=== PATIENT | female | born 1965 | race Caucasian/White ===

== ENCOUNTER → 2016-04-24 | Outpatient (REF) | payer OTHER ==
[~2016-04-24] MED LIST: BENZONATE PO; FEXOFENADINE PO; FISHCAP PO; OMEPPOW18 PO; RESTASIS OU; SYMB80AE IN; VICO5TAB OR
== END ==
LOC: M SFHCCLAY 07:41
PROVIDERS: ATTEND Nurse Practitioner Family
DX: E78.4 Other hyperlipidemia (principal)

== ENCOUNTER → 2016-06-22 | Outpatient (CLI) | payer OTHER ==
--- NOTE | 2016-06-22 14:47 | REPMRS ---
Patient History The patient states she had a clinical breast exam in 05/2016. Family history of breast cancer in paternal grandmother at age 55. Took unspecified hormones for 4 years. Digital Woman Screen Mammo: June 22, 2016 - Exam #: [id number] Bilateral CC and MLO view(s) were taken. Technologist: Porsche Hand, Technologist Prior study comparison: June 14, 2015, digital woman screen mammo performed at [facility]. June 12, 2014, digital woman screen mammo performed at [facility]. FINDINGS: The breast tissue is heterogeneously dense. This may lower the sensitivity of mammography. There has been no change in the appearance of the mammogram from the prior studies. There is a moderate amount of residual fibroglandular tissue which is fairly symmetric. There is no interval development of dominant mass, architectural distortion, or clustered microcalcification typical of malignancy. Scattered lymph nodes are seen in the axillae. No significant changes when compared with prior studies. ASSESSMENT: BI-RADS/ACR category 2 mammogram. Benign finding(s). Recommendation Routine screening mammogram in 1 year (for women over age 40). This mammogram was interpreted with the aid of an FDA-approved computer-aided dectection system. A. Negative x-ray reports should not delay biopsy if a dominant or clinically suspicious mass is present. B. Four to eight percent of cancers are not identified by mammography. C. Adenosis and dense breast may obscure an underlying neoplasm. Electronically Signed By: Vishnu Melgoza MD 06/22/16 [id number]
== END ==
LOC: M WHC 13:30
PROVIDERS: ATTEND Nurse Practitioner Family
DX: Z12.31 Encounter for screening mammogram for malignant neoplasm of breast (principal)

== ENCOUNTER → 2016-08-22 | Outpatient (REF) | payer OTHER ==
[2016-08-22 12:21] LABS: MEAN CORPUSCULAR HEMOGLOBIN 30.1 pg (27.0-33.0); MEAN CORPUSCULAR HGB CONC 33.6 g/dl (32.0-36.5); MEAN CORPUSCULAR VOLUME 89.6 fl (80.0-96.0); WHITE BLOOD COUNT 8.1 K/mm3 (4.0-10.0)
[2016-08-22 12:32] LABS: ALBUMIN 3.9 GM/DL (3.2-5.2); ALBUMIN/GLOBULIN RATIO 1.18 (1.00-1.93); ALKALINE PHOSPHATASE 80 U/L (45-117); ALT/SGPT 30 U/L (12-78); ANION GAP 5 MEQ/L (8-16); AST/SGOT 13 U/L (15-37); BILIRUBIN,TOTAL 0.5 MG/DL (0.2-1.0); BLOOD UREA NITROGEN 8 MG/DL (7-18); CALCIUM LEVEL 8.6 MG/DL (8.5-10.1); CARBON DIOXIDE LEVEL 28 MEQ/L (21-32); CHLORIDE LEVEL 104 MEQ/L (98-107); CHOLESTEROL LEVEL 230 MG/DL (<200); CREATININE FOR GFR 0.74 MG/DL (0.55-1.02); GLOMERULAR FILTRATION RATE > 60.0 (>51); GLUCOSE, FASTING 122 MG/DL (70-105); POTASSIUM SERUM 4.3 MEQ/L (3.5-5.1); SODIUM LEVEL 137 MEQ/L (136-145); TOTAL PROTEIN 7.2 GM/DL (6.4-8.2); TRIGLYCERIDES LEVEL 170 MG/DL (<150)
== END ==
LOC: M SFHCCLAY 07:55
PROVIDERS: ATTEND Nurse Practitioner Family
DX: K21.9 Gastro-esophageal reflux disease without esophagitis (principal); E78.4 Other hyperlipidemia; E03.9 Hypothyroidism, unspecified; E55.9 Vitamin D deficiency, unspecified

== ENCOUNTER → 2016-12-18 | Outpatient (REF) | payer OTHER | LOC: M SFHCCLAY 08:06 | PROVIDERS: ATTEND Nurse Practitioner Family | DX: R73.01 Impaired fasting glucose (principal); E78.4 Other hyperlipidemia ==

== ENCOUNTER → 2017-04-09 | Outpatient (REF) | payer OTHER ==
[2017-04-09 11:49] LABS: CHOLESTEROL LEVEL 199 MG/DL (<200); CHOLESTEROL RISK RATIO 4.627 (<5); GLUCOSE, FASTING 99 MG/DL (70-105); HDL CHOLESTEROL 43 MG/DL (>40); LDL CHOLESTEROL 129.8 MG/DL (<100); NON-HDL-C 156 MG/DL; TRIGLYCERIDES LEVEL 131 MG/DL (<150)
[2017-04-09 12:42] LABS: ESTIMATED AVERAGE GLUCOSE 123 MG/DL (60-110); HEMOGLOBIN A1c 5.9 %
== END ==
LOC: M SFHCCLAY 07:04
DX: R73.01 Impaired fasting glucose (principal); E78.4 Other hyperlipidemia

== ENCOUNTER → 2017-06-29 | Outpatient (REF) | payer OTHER ==
[2017-06-29 16:50] LABS: HEMATOCRIT 39.3 % (36.0-47.0); HEMOGLOBIN 12.9 g/dl (12.0-15.5); MEAN CORPUSCULAR HEMOGLOBIN 29.9 pg (27.0-33.0); MEAN CORPUSCULAR HGB CONC 32.8 g/dl (32.0-36.5); MEAN CORPUSCULAR VOLUME 91.2 fl (80.0-96.0); PLATELET COUNT, AUTOMATED 352 10^3/uL (150-450); RED BLOOD COUNT 4.31 10^6/uL (4.00-5.40); RED CELL DISTRIBUTION WIDTH 12.7 % (11.5-14.5); WHITE BLOOD COUNT 7.7 10^3/uL (4.0-10.0)
[2017-06-29 17:14] LABS: TOTAL 25(OH) VITAMIN D 27.5 NG/ML (30.0-100.0)
[2017-06-29 17:19] LABS: ALBUMIN 4.2 GM/DL (3.2-5.2); ALBUMIN/GLOBULIN RATIO 1.24 (1.00-1.93); ALKALINE PHOSPHATASE 69 U/L (45-117); ALT/SGPT 58 U/L (12-78); ANION GAP 7 MEQ/L (8-16); AST/SGOT 31 U/L (7-37); BILIRUBIN,TOTAL 0.4 MG/DL (0.2-1.0); BLOOD UREA NITROGEN 8 MG/DL (7-18); CALCIUM LEVEL 9.2 MG/DL (8.5-10.1); CARBON DIOXIDE LEVEL 29 MEQ/L (21-32); CHLORIDE LEVEL 105 MEQ/L (98-107); CHOLESTEROL LEVEL 212 MG/DL (<200); CREATININE FOR GFR 0.73 MG/DL (0.55-1.30); GLOMERULAR FILTRATION RATE > 60.0 (>51); GLUCOSE, FASTING 104 MG/DL (70-100); HDL CHOLESTEROL 41 MG/DL (>40); LDL CHOLESTEROL 115.4 MG/DL (<100); NON-HDL-C 171 MG/DL; POTASSIUM SERUM 4.2 MEQ/L (3.5-5.1); SODIUM LEVEL 141 MEQ/L (136-145); TOTAL PROTEIN 7.6 GM/DL (6.4-8.2); TRIGLYCERIDES LEVEL 278 MG/DL (<150)
[2017-06-29 17:40] LABS: ESTIMATED AVERAGE GLUCOSE 126 MG/DL (60-110)
== END ==
LOC: M SFHCCLAY 11:23
DX: K21.9 Gastro-esophageal reflux disease without esophagitis (principal); E78.4 Other hyperlipidemia; R73.01 Impaired fasting glucose; E03.9 Hypothyroidism, unspecified; E55.9 Vitamin D deficiency, unspecified

== ENCOUNTER → 2017-07-06 | Outpatient (REF) | payer OTHER | LOC: M SFHCWAGY 13:57 | DX: Z12.72 Encounter for screening for malignant neoplasm of vagina (principal) ==

== ENCOUNTER → 2017-07-06 | Outpatient (CLI) | payer OTHER | LOC: M WHC 13:31 | DX: Z12.31 Encounter for screening mammogram for malignant neoplasm of breast (principal) ==

== ENCOUNTER → 2017-07-09 | Outpatient (CLI) | payer OTHER | LOC: M SMT 15:55 | DX: M41.04 Infantile idiopathic scoliosis, thoracic region (principal); J45.41 Moderate persistent asthma with (acute) exacerbation | CPT/HCPCS: 71046 ==

== ENCOUNTER 2017-09-21 06:32 | Day surgery (SDC) | payer OTHER ==
[2017-09-21] MEDS ORDERED: LIDOCAINE 2% INJ 100 MG/5 ML SDV (FOR ANES.) As Ordered (07:03)
[2017-09-21] MEDS ORDERED: PROPOFOL 200 MG/20 ML VIAL As Ordered ×2 (07:03)
[2017-09-21] MEDS: NS 1,000 ML IV (07:08)
[2017-09-21] MEDS ORDERED: fentaNYL 100 MCG/2 ML INJECTION (J3010) As Ordered (07:36)
== END 2017-09-21 08:20 | disposition home or self-care (01) ==
LOC: M OPP 06:32
DX: Z12.11 Encounter for screening for malignant neoplasm of colon (principal); K64.0 First degree hemorrhoids; Z86.010 Personal history of colon polyps; K22.8 Other specified diseases of esophagus; K44.9 Diaphragmatic hernia without obstruction or gangrene; R13.10 Dysphagia, unspecified; E78.00 Pure hypercholesterolemia, unspecified; E03.9 Hypothyroidism, unspecified; K21.9 Gastro-esophageal reflux disease without esophagitis; J44.9 Chronic obstructive pulmonary disease, unspecified; Z79.899 Other long term (current) drug therapy; Z79.82 Long term (current) use of aspirin; Z88.0 Allergy status to penicillin; Z88.8 Allergy status to other drugs, medicaments and biological substances; Z90.710 Acquired absence of both cervix and uterus
CPT/HCPCS: 45378

== ENCOUNTER → 2017-10-04 | Outpatient (CLI) | payer OTHER | LOC: M RAD 14:00 | DX: J30.9 Allergic rhinitis, unspecified (principal); J32.9 Chronic sinusitis, unspecified | CPT/HCPCS: 71046 ==

== ENCOUNTER → 2017-10-05 | Outpatient (REF) | payer OTHER ==
[2017-10-05 11:29] LABS: BASO # 0.1 10^3/uL (0.0-0.2); EOS # 0.2 10^3/uL (0.0-0.50); EOS % 1.6 % (0.0-3.0); HEMATOCRIT 38.9 % (36.0-47.0); HEMOGLOBIN 12.9 g/dl (12.0-15.5); IMMATURE GRANULOCYTE % 1.5 % (0-3.0); LYMPH # 2.9 10^3/uL (1.5-4.5); LYMPH % 25.9 % (24.0-44.0); MEAN CORPUSCULAR HEMOGLOBIN 30.4 pg (27.0-33.0); MEAN CORPUSCULAR HGB CONC 33.2 g/dl (32.0-36.5); MEAN CORPUSCULAR VOLUME 91.7 fl (80.0-96.0); MONO % 8.7 % (0.0-5.0); NEUTROPHILS # 6.8 10^3/uL (1.8-7.7); NEUTROPHILS % 61.3 % (36.0-66.0); PLATELET COUNT, AUTOMATED 326 10^3/uL (150-450); RED BLOOD COUNT 4.24 10^6/uL (4.00-5.40); RED CELL DISTRIBUTION WIDTH 13.2 % (11.5-14.5)
[2017-10-05 11:56] LABS: ESTIMATED AVERAGE GLUCOSE 131 MG/DL (60-110); HEMOGLOBIN A1c 6.2 %
[2017-10-05 12:12] LABS: CHOLESTEROL LEVEL 195 MG/DL (<200); CHOLESTEROL RISK RATIO 4.333 (<5); GLUCOSE, FASTING 97 MG/DL (70-100); HDL CHOLESTEROL 45 MG/DL (>40); LDL CHOLESTEROL 111.2 MG/DL (<100); NON-HDL-C 150 MG/DL; TOTAL 25(OH) VITAMIN D 32.5 NG/ML (30.0-100.0); TRIGLYCERIDES LEVEL 194 MG/DL (<150)
[2017-10-05 12:25] LABS: IMMUNOGLOBULIN E 4.7 IU/ML (<100)
== END ==
LOC: M SFHCCLAY 09:12
DX: T78.40XD Allergy, unspecified, subsequent encounter (principal); R73.01 Impaired fasting glucose; E78.4 Other hyperlipidemia; E03.9 Hypothyroidism, unspecified; E55.9 Vitamin D deficiency, unspecified

== ENCOUNTER → 2017-10-13 | Outpatient (CLI) | payer OTHER | LOC: M RAD 12:02 | DX: R42 Dizziness and giddiness (principal) ==

== ENCOUNTER → 2017-10-22 | Outpatient (REF) | payer OTHER ==
[2017-10-22 13:08] LABS: BASO # 0.1 10^3/uL (0.0-0.2); BASO % 0.8 % (0.0-1.0); EOS # 0.1 10^3/uL (0.0-0.50); EOS % 1.3 % (0.0-3.0); HEMATOCRIT 41.8 % (36.0-47.0); HEMOGLOBIN 13.7 g/dl (12.0-15.5); IMMATURE GRANULOCYTE % 0.6 % (0-3.0); LYMPH # 2.4 10^3/uL (1.5-4.5); LYMPH % 26.9 % (24.0-44.0); MEAN CORPUSCULAR HGB CONC 32.8 g/dl (32.0-36.5); MEAN CORPUSCULAR VOLUME 91.7 fl (80.0-96.0); MONO # 0.7 10^3/uL (0.0-0.8); MONO % 7.5 % (0.0-5.0); NEUTROPHILS # 5.7 10^3/uL (1.8-7.7); NEUTROPHILS % 62.9 % (36.0-66.0); PLATELET COUNT, AUTOMATED 408 10^3/uL (150-450); RED BLOOD COUNT 4.56 10^6/uL (4.00-5.40); RED CELL DISTRIBUTION WIDTH 12.9 % (11.5-14.5)
[2017-10-22 13:34] LABS: ESTIMATED AVERAGE GLUCOSE 137 MG/DL (60-110); HEMOGLOBIN A1c 6.4 %
[2017-10-22 13:36] LABS: ERYTHROCYTE SEDIMENTATION RATE 12 mm/hr (0-30)
[2017-10-22 13:45] LABS: VITAMIN B12 LEVEL 523 PG/ML
[2017-10-22 13:46] LABS: FOLATE > 24.0 NG/ML
[2017-10-22 13:50] LABS: ALBUMIN 4.3 GM/DL (3.2-5.2); ALBUMIN/GLOBULIN RATIO 1.26 (1.00-1.93); ALKALINE PHOSPHATASE 77 U/L (45-117); ALT/SGPT 62 U/L (12-78); ANION GAP 8 MEQ/L (8-16); AST/SGOT 27 U/L (7-37); BILIRUBIN,TOTAL 0.4 MG/DL (0.2-1.0); BLOOD UREA NITROGEN 8 MG/DL (7-18); CALCIUM LEVEL 9.1 MG/DL (8.5-10.1); CARBON DIOXIDE LEVEL 30 MEQ/L (21-32); CHLORIDE LEVEL 102 MEQ/L (98-107); FREE T4 1.06 NG/DL (0.76-1.46); GLOMERULAR FILTRATION RATE > 60.0 (>51); GLUCOSE, FASTING 95 MG/DL (70-100); RHEUMATOID FACTOR QUANT 13.1 IU/ML (<15.0); SODIUM LEVEL 140 MEQ/L (136-145); TOTAL PROTEIN 7.7 GM/DL (6.4-8.2)
[2017-11-01 00:13] LABS: ANTI DOUBLE STRAND-DNA AB 1 IU/mL (0-9); ANTINUCLEAR ANTIBODIES DIRECT Positive (Negative); Lyme Disease IgG/IgM Antibodie <0.91 ISR (0.00-0.90); Lyme Disease IgM Ab Quantitati <0.80 index (0.00-0.79); RNP ANTIBODIES 1.1 AI (0.0-0.9); SJOGREN'S ANTI SS-A <0.2 AI (0.0-0.9); SJOGREN'S ANTI SS-B <0.2 AI (0.0-0.9); SMITH ANTIBODIES <0.2 AI (0.0-0.9); VITAMIN B1 LEVEL WHOLE BLOOD 118.5 nmol/L (66.5-200.0); VITAMIN B6,PYRIDOXAL PHOSPHATE 13.8 ug/L (2.0-32.8); VITAMIN E(ALPHA TOCOPHEROL) 20.5 mg/L (7.0-25.1); VITAMIN E(GAMMA TOCOPHEROL) 1.6 mg/L (0.5-5.5)
== END ==
LOC: M LABNEURO 11:01
DX: E07.9 Disorder of thyroid, unspecified (principal); A69.20 Lyme disease, unspecified

== ENCOUNTER → 2017-12-04 | Outpatient (REF) | payer OTHER ==
[2017-12-04 18:37] LABS: APPEARANCE, URINE CLEAR (CLEAR); BACTERIA, URINE AUTO 2+ (NEGATIVE); BILIRUBIN, URINE AUTO NEGATIVE (NEGATIVE); BLOOD, URINE BLOOD NEGATIVE (NEGATIVE); COLOR, URINE STRAW (YELLOW); GLUCOSE, URINE (UA) AUTO NEGATIVE (NEGATIVE); KETONE, URINE AUTO NEGATIVE (NEGATIVE); LEUKOCYTE ESTERASE, URINE AUTO NEGATIVE (NEGATIVE); NITRITE, URINE AUTO NEGATIVE (NEGATIVE); PROTEIN, URINE AUTO NEGATIVE (NEGATIVE); RBC, URINE AUTO 0 /HPF (0-3); SPECIFIC GRAVITY URINE AUTO 1.003 (1.002-1.035); SQUAMOUS EPITHELIAL CELL UR AU 0 /HPF (0-6); UROBILINOGEN, URINE AUTO 0.2 mg/dL (0.0-2.0); WBC, URINE AUTO 0 /HPF (0-3)
[2017-12-04 18:50] LABS: CREATININE,RANDOM URINE 22.7 MG/DL; TOTAL PROTEIN,RANDOM URINE < 5.0 MG/DL (0.0-12.0)
[2017-12-04 19:09] LABS: COMPLEMENT C3 149 MG/DL (90-180)
[2017-12-08 14:57] LABS: ANA (HEP2) Positive (.); BETA-2 GLYCOPROTEIN I ABY IGA <9 (0-25); BETA-2 GLYCOPROTEIN I ABY IGG <9 (0-20); BETA-2 GLYCOPROTEIN I ABY IGM <9 (0-32); CARDIOLIPIN IGA ANTIBODY <9 APL U/mL (0-11); CARDIOLIPIN IGG ANTIBODY <9 GPL U/mL (0-14); CARDIOLIPIN IGM ANTIBODY 9 MPL U/mL (0-12); CYCLIC CITRULLINATED PEPTIDE 5 units (0-19); SMITHS ANTIBODY < 0.2 AI (0.0-0.9)
[2017-12-11 11:09] LABS: DRVV SCREEN 42.9 SEC; PTT LUPUS TYPE ANTICOAG SCREEN 1.1 (0-1.2)
== END ==
LOC: M SFHCLERA 11:36
DX: R76.8 Other specified abnormal immunological findings in serum (principal)
CPT/HCPCS: 86255

== ENCOUNTER → 2018-01-03 | Outpatient (REF) | payer OTHER | LOC: M SFHCPLAZ 15:41 | DX: L57.8 Other skin changes due to chronic exposure to nonionizing radiation (principal) | CPT/HCPCS: 88305 ==

== ENCOUNTER → 2018-05-22 | Outpatient (REF) | payer OTHER ==
[~2018-05-22] MED LIST changes: +CLAR10CA3 PO; +FLUT11IN INH; +LEVAINH INH; +LEVO75TA4 PO; +MULT1TAB10 PO; +SING10TA32 PO
[2018-05-22 17:24] LABS: HEMOGLOBIN 12.8 g/dl (12.0-15.5); MEAN CORPUSCULAR HEMOGLOBIN 29.8 pg (27.0-33.0); PLATELET COUNT, AUTOMATED 353 10^3/uL (150-450); WHITE BLOOD COUNT 5.9 10^3/uL (4.0-10.0)
[2018-05-22 17:44] LABS: ALBUMIN 4.1 GM/DL (3.2-5.2); ALT/SGPT 47 U/L (12-78); BILIRUBIN,TOTAL 0.4 MG/DL (0.2-1.0); BLOOD UREA NITROGEN 8 MG/DL (7-18); CALCIUM LEVEL 8.5 MG/DL (8.5-10.1); CARBON DIOXIDE LEVEL 30 MEQ/L (21-32); CHLORIDE LEVEL 106 MEQ/L (98-107); CREATININE FOR GFR 0.71 MG/DL (0.55-1.30); FREE T4 1.18 NG/DL (0.76-1.46); GLOMERULAR FILTRATION RATE > 60.0 (>51); GLUCOSE, FASTING 113 MG/DL (70-100); SODIUM LEVEL 141 MEQ/L (136-145); TOTAL PROTEIN 7.1 GM/DL (6.4-8.2)
[2018-05-24 14:22] LABS: SMITHS ANTIBODY < 0.2 AI (0.0-0.9)
== END ==
LOC: M SFHCCLAY 09:05
PROVIDERS: ATTEND Family Medicine
DX: R25.1 Tremor, unspecified (principal); M35.00 Sjogren syndrome, unspecified; K52.9 Noninfective gastroenteritis and colitis, unspecified

== ENCOUNTER → 2018-06-13 | Outpatient (REF) | payer OTHER | LOC: M SFHCCLAY 11:51 | PROVIDERS: ATTEND Family Medicine | DX: J02.9 Acute pharyngitis, unspecified (principal) ==

== ENCOUNTER → 2018-08-14 | Outpatient (CLI) | payer OTHER ==
--- NOTE | 2018-08-14 13:59 | REPMRS ---
Patient History The patient states she had a clinical breast exam in 07/2018. Family history of breast cancer at age 55 in paternal grandmother. Took unspecified hormones for 4 years. 3D TOMOSYNTHESIS WAS PERFORMED. Digital Woman Screen Mammo: August 14, 2018 - Exam #: [id number] Bilateral CC and MLO view(s) were taken. Technologist: Morena Cardenas, Technologist Prior study comparison: July 06, 2017, digital woman screen mammo performed at [facility]. June 22, 2016, digital woman screen mammo performed at [facility]. FINDINGS: The breast tissue is heterogeneously dense. This may lower the sensitivity of mammography. There has been no change in the appearance of the mammogram from the prior studies. There is a moderate amount of residual fibroglandular tissue which is fairly symmetric. There is no interval development of dominant mass, areas of architectural distortion, or clustered microcalcification typical of malignancy. Assessment: BI-RADS/ACR category 1 mammogram. Negative Mammogram. Recommendation Routine screening mammogram in 1 year (for women over age 40). This mammogram was interpreted with the aid of an FDA-approved computer-aided dectection system. Electronically Signed By: Nilson Lee MD 08/14/18 1017
== END ==
LOC: M WHC 13:10
PROVIDERS: ATTEND Nurse Practitioner Family
DX: Z12.31 Encounter for screening mammogram for malignant neoplasm of breast (principal); Z80.3 Family history of malignant neoplasm of breast

== ENCOUNTER → 2018-08-14 | Outpatient (CLI) | payer OTHER ==
--- NOTE | 2018-08-14 15:41 | REP ---
Clinical: Chronic persistent asthma. Technique: PA and lateral. Comparison: 10/04/2017. Findings: Mediastinum and cardiac silhouette are within normal limits and stable. Chronic subtle scoliosis noted. Lung nice demonstrate chronic interstitial changes consistent with the given history of asthma. No apparent acute consolidation, effusion, or pneumothorax. Skeletal structures are intact. Impression: Chronic changes likely related to asthma. No acute process identified. Electronically Signed by Ruslan Alves MD 08/14/2018 03:33 P
== END ==
LOC: M SMT 15:05
PROVIDERS: ATTEND Nurse Practitioner Adult Health
DX: J45.40 Moderate persistent asthma, uncomplicated (principal)

== ENCOUNTER → 2019-03-24 | Outpatient (CLI) | payer OTHER ==
--- NOTE | 2019-03-24 14:04 | REP ---
Chest x-ray: Two views. History: Cough. Comparison chest x-ray: August 14, 2018. Findings: There is an S-shaped thoracolumbar scoliotic curve which is unchanged. No other significant bony abnormality is seen. The lungs are well inflated and free of infiltrate. Pleural angles are sharp. Cardiomediastinal silhouette is unremarkable and unchanged. Pulmonary vasculature is not increased. Impression: Thoracic scoliosis unchanged. Otherwise no acute disease Electronically Signed by Freddie Oseguera MD 03/24/2019 01:55 P
== END ==
LOC: M CLY 13:37
PROVIDERS: ATTEND Family Medicine
DX: R05 Cough (principal)

== ENCOUNTER → 2019-04-08 | Outpatient (REF) | payer OTHER ==
[2019-04-08 14:21] LABS: BASO # 0.1 10^3/uL (0.0-0.2); BASO % 0.4 % (0.0-1.0); EOS % 0.1 % (0.0-3.0); HEMATOCRIT 38.9 % (36.0-47.0); HEMOGLOBIN 12.7 g/dl (12.0-15.5); LYMPH % 17.9 % (24.0-44.0); MEAN CORPUSCULAR HEMOGLOBIN 30.5 pg (27.0-33.0); MEAN CORPUSCULAR HGB CONC 32.6 g/dl (32.0-36.5); MEAN CORPUSCULAR VOLUME 93.3 fl (80.0-96.0); MONO # 1.1 10^3/uL (0.0-0.8); MONO % 6.8 % (0.0-5.0); NEUTROPHILS # 11.9 10^3/uL (1.5-8.5); PLATELET COUNT, AUTOMATED 335 10^3/uL (150-450); RED BLOOD COUNT 4.17 10^6/uL (4.00-5.40); WHITE BLOOD COUNT 16.6 10^3/uL (4.0-10.0)
[2019-04-08 15:06] LABS: ERYTHROCYTE SEDIMENTATION RATE 8 mm/hr (0-30)
== END ==
LOC: M LAB REF 13:08
PROVIDERS: ATTEND Nurse Practitioner Adult Health
DX: R59.9 Enlarged lymph nodes, unspecified (principal)

== ENCOUNTER → 2019-04-11 | Outpatient (CLI) | payer OTHER ==
[~2019-04-11] MED LIST changes: +ISOVUE-370 76% 100ML VIAL (Q9967) As Ordered ONE
--- NOTE | 2019-04-11 09:25 | REP ---
INDICATION: Cough. Enlarged lymph nodes. PROCEDURE: CT neck with contrast. COMPARISON STUDIES: No prior similar studies FINDINGS: Oropharynx, nasopharynx, hypopharynx and larynx appear unremarkable. No evidence of lymphadenopathy. Soft tissues appear unremarkable. Bubbly fluid level seen in the right maxillary sinus. Fluid level also seen on the left. Mastoid air cells are clear. No vascular structures are unremarkable. Thyroid gland appears unremarkable. There is dxti-[id number] multilevel degenerative disc disease without evidence of a limiting canal stenosis. Osteophytes appear to narrow the neural foramen at this C5-6 level. IMPRESSION: No significant lymphadenopathy. No evidence of abscess or focal infection. Findings that could correlate with sinusitis. Clinical correlation recommended. Electronically Signed by Jimmy Peñaloza MD 04/11/2019 09:17 A
--- NOTE | 2019-04-11 13:50 | REP ---
CT CHEST WITH IV CONTRAST: HISTORY: Enlarged lymph nodes. Comparison chest CT study May 10, 2007. CT CONTRAST DOSE: 100 mL of intravenous Isovue 370. CT FINDINGS: Digital preliminary telecom specialist radiograph demonstrates an S-shaped thoracolumbar scoliosis. There is no evidence of hilar or mediastinal lymphadenopathy. There is good opacification of the vascular structures in the mediastinum. No evidence of pulmonary embolus or aortic dissection or aneurysm. No pleural or pericardial effusion is seen. There is no evidence of infiltrate or pulmonary mass lesion. No significant pulmonary nodule is appreciated. No acute bony abnormality is appreciated. Normal adrenal glands. The visualized upper abdominal structures are unremarkable. IMPRESSION: No active disease. Electronically Signed by Freddie Oseguera MD 04/11/2019 08:47 P
== END ==
LOC: M RAD 08:03
PROVIDERS: ATTEND Nurse Practitioner Adult Health
DX: R05 Cough (principal); R59.9 Enlarged lymph nodes, unspecified
CPT/HCPCS: 70491; 71260; Q9967

== ENCOUNTER → 2019-04-22 | Outpatient (REF) | payer OTHER ==
[~2019-04-22] MED LIST changes: -ISOVUE-370 76% 100ML VIAL (Q9967) As Ordered ONE
[2019-04-22 12:41] LABS: BLOOD UREA NITROGEN 9 MG/DL (7-18); CALCIUM LEVEL 9.2 MG/DL (8.5-10.1); CARBON DIOXIDE LEVEL 34 MEQ/L (21-32); CHLORIDE LEVEL 102 MEQ/L (98-107); CREATININE FOR GFR 0.68 MG/DL (0.55-1.30); FREE T4 1.09 NG/DL (0.76-1.46); GLOMERULAR FILTRATION RATE > 60.0 (>51); GLUCOSE, FASTING 104 MG/DL (70-100); POTASSIUM SERUM 3.9 MEQ/L (3.5-5.1); SODIUM LEVEL 139 MEQ/L (136-145)
[2019-04-22 12:47] LABS: HEMOGLOBIN A1c 7.2 %
== END ==
LOC: M SFHCCLAY 08:29
PROVIDERS: ATTEND Family Medicine
DX: E03.9 Hypothyroidism, unspecified (principal); R73.01 Impaired fasting glucose

== ENCOUNTER → 2019-05-19 | Outpatient (CLI) | payer OTHER ==
--- NOTE | 2019-05-19 15:09 | REPVR ---
PROCEDURE INFORMATION: Exam: CT Maxillofacial Without Contrast, Sinus Exam date and time: 05/19/2019 2:40 PM Age: 54 years old Clinical indication: Pain; Other: Sinus; Additional info: Acute recurrent max sinusitis TECHNIQUE: Imaging protocol: CT Maxillofacial without contrast. Focus on the sinuses. Radiation optimization: All CT scans at this facility use at least one of these dose optimization techniques: automated exposure control; mA and/or kV adjustment per patient size (includes targeted exams where dose is matched to clinical indication); or iterative reconstruction. COMPARISON: CT Maxilofacial w/out contrast 10/04/2017 2:09 PM FINDINGS: Frontal sinuses: Normal. No air-fluid levels. Ethmoid air cells: Normal. No air-fluid levels. Sphenoid sinuses: Mild mucosal thickening along the anterior wall of the left sphenoid sinus extending along the left sphenoid ostium which is opacified. No air-fluid levels. Maxillary sinuses: Trace right maxillary sinus mucosal thickening. No air-fluid levels. Ostiomeatal units are patent. Orbits: Orbits are normal. Globes are unremarkable. Nasal cavity/Septum: Unremarkable. Dental: There is a supernumerary tooth of the left maxilla. Soft tissues: Unremarkable. Bones/joints: Unremarkable. IMPRESSION: 1. No evidence of acute or severe chronic sinusitis. 2. Mild, chronic left sphenoid sinusitis with opacification of the sphenoid ostium. Electronically signed by: Porsche Kruse On 05/19/2019 15:09:42 PM
== END ==
LOC: M RAD 14:22
PROVIDERS: ATTEND Specialist
DX: J01.01 Acute recurrent maxillary sinusitis (principal)

== ENCOUNTER → 2019-07-23 | Outpatient (CLI) | payer OTHER ==
--- NOTE | 2019-07-24 02:45 | REPPI ---
Clinical: Sjogren's syndrome. Technique: AP, lateral, bilateral oblique and sunrise views of the left knee. Findings: Increased sclerosis along the tibial plateau with tibiofemoral joint space narrowing. A small 5 mm loose body along the anterolateral joint space compartment is suspected. No definite effusion. No obvious acute fracture or dislocation. Impression: Degenerative changes as described above. Electronically Signed by Ruslan Alves MD 07/24/2019 02:37 A
== END ==
LOC: M PLAIMG 08:42
DX: M35.09 Sjogren syndrome with other organ involvement (principal); M17.12 Unilateral primary osteoarthritis, left knee

== ENCOUNTER → 2019-07-23 | Outpatient (REF) | payer OTHER ==
[2019-07-23 18:52] LABS: BASO # 0.1 10^3/uL (0.0-0.2); BASO % 0.9 % (0.0-1.0); EOS # 0.3 10^3/uL (0.0-0.5); EOS % 3.5 % (0.0-3.0); HEMATOCRIT 39.4 % (36.0-47.0); LYMPH % 26.1 % (24.0-44.0); MEAN CORPUSCULAR HEMOGLOBIN 29.7 pg (27.0-33.0); MEAN CORPUSCULAR VOLUME 90.2 fl (80.0-96.0); MONO # 0.7 10^3/uL (0.0-0.8); MONO % 8.8 % (0.0-5.0); NEUTROPHILS # 4.6 10^3/uL (1.5-8.5); NEUTROPHILS % 60.2 % (36.0-66.0); PLATELET COUNT, AUTOMATED 336 10^3/uL (150-450); RED BLOOD COUNT 4.37 10^6/uL (4.00-5.40); WHITE BLOOD COUNT 7.6 10^3/uL (4.0-10.0)
[2019-07-23 19:25] LABS: ALBUMIN 3.9 GM/DL (3.2-5.2); ALT/SGPT 41 U/L (12-78); BILIRUBIN,TOTAL 0.3 MG/DL (0.2-1.0); BLOOD UREA NITROGEN 7 MG/DL (7-18); CALCIUM LEVEL 9.4 MG/DL (8.5-10.1); CARBON DIOXIDE LEVEL 28 MEQ/L (21-32); CHLORIDE LEVEL 103 MEQ/L (98-107); CREATININE FOR GFR 0.63 MG/DL (0.55-1.30); GLOMERULAR FILTRATION RATE > 60.0 (>51); GLUCOSE, FASTING 93 MG/DL (70-100); SODIUM LEVEL 138 MEQ/L (136-145); TOTAL PROTEIN 7.2 GM/DL (6.4-8.2)
[2019-07-23 19:38] LABS: ERYTHROCYTE SEDIMENTATION RATE 10 mm/hr (0-30)
[2019-07-23 19:46] LABS: RUBELLA IgG QUALITATIVE IMMUNE (IMMUNE)
[2019-07-24 12:23] LABS: IMMUNOGLOBULIN G 791 MG/DL (681-1648); IMMUNOGLOBULIN M 91.8 MG/DL (40-230)
[2019-07-24 12:24] LABS: IMMUNOGLOBULIN E < 3.6 IU/ML (<100)
== END ==
LOC: M LAB REF 17:43
PROVIDERS: ATTEND Allergy & Immunology Allergy
DX: D84.9 Immunodeficiency, unspecified (principal)

== ENCOUNTER → 2019-08-27 | Outpatient (CLI) | payer OTHER ==
--- NOTE | 2019-08-27 16:02 | REPMRS ---
Patient History The patient states she had a clinical breast exam in August 2019.Family history of breast cancer at age 55 in paternal grandmother. Took unspecified hormones for 4 years. 3D TOMOSYNTHESIS WAS PERFORMED. [facility] lifetime risk for breast cancer is 11.1%. ALIX ALEJANDRO Leah. Digital Woman Screen Mammo: August 27, 2019 - Exam #: [id number] Bilateral CC and MLO view(s) were taken. Technologist: Yaima Rosenthal, Technologist Prior study comparison: August 14, 2018, bilateral digital woman screen mammo performed at [facility]. July 06, 2017, digital woman screen mammo performed at [facility]. FINDINGS: The breast tissue is heterogeneously dense. This may lower the sensitivity of mammography. There has been no change in the appearance of the mammogram from the prior studies. There is a moderate amount of residual fibroglandular tissue which is fairly symmetric. There is no interval development of dominant mass, areas of architectural distortion, or clustered microcalcification typical of malignancy. Assessment: BI-RADS/ACR category 1 mammogram. Negative Mammogram. Recommendation Routine screening mammogram in 1 year (for women over age 40). This mammogram was interpreted with the aid of an FDA-approved computer-aided dectection system. Electronically Signed By: Nilson Lee MD 08/27/19 [id number]
== END ==
LOC: M WHC 13:08
PROVIDERS: ATTEND Nurse Practitioner Family
DX: Z12.31 Encounter for screening mammogram for malignant neoplasm of breast (principal); Z92.29 Personal history of other drug therapy

== ENCOUNTER → 2020-01-24 | Outpatient (CLI) | payer OTHER | LOC: M LABSMTC 10:40 | PROVIDERS: ATTEND Orthopaedic Surgery | DX: Z20.828 Contact with and (suspected) exposure to other viral communicable diseases (principal) ==

== ENCOUNTER → 2020-01-26 | Outpatient (REF) | payer OTHER ==
[2020-01-26 12:15] LABS: HEMOGLOBIN A1c 6.1 %
[2020-01-26 13:33] LABS: ALBUMIN 4.1 GM/DL (3.2-5.2); ALT/SGPT 30 U/L (12-78); BILIRUBIN,TOTAL 0.8 MG/DL (0.2-1.0); BLOOD UREA NITROGEN 10 MG/DL (7-18); CALCIUM LEVEL 8.9 MG/DL (8.5-10.1); CARBON DIOXIDE LEVEL 28 MEQ/L (21-32); CHLORIDE LEVEL 104 MEQ/L (98-107); CHOLESTEROL LEVEL 199 MG/DL (<200); CHOLESTEROL RISK RATIO 3.826 (<5); CREATININE FOR GFR 0.68 MG/DL (0.55-1.30); FREE T4 1.12 NG/DL (0.76-1.46); GLOMERULAR FILTRATION RATE > 60.0 (>51); GLUCOSE, FASTING 83 MG/DL (70-100); HDL CHOLESTEROL 52 MG/DL (>40); LDL CHOLESTEROL 98 MG/DL (<100); NON-HDL-C 147 MG/DL; SODIUM LEVEL 139 MEQ/L (136-145); TOTAL PROTEIN 7.1 GM/DL (6.4-8.2); TRIGLYCERIDES LEVEL 245 MG/DL (<150)
== END ==
LOC: M SFHCCLAY 08:22
PROVIDERS: ATTEND Family Medicine
DX: E09.9 Drug or chemical induced diabetes mellitus without complications (principal); J45.40 Moderate persistent asthma, uncomplicated

== ENCOUNTER → 2020-03-02 | Outpatient (REF) | payer OTHER | LOC: M SFHCCLAY 14:21 | PROVIDERS: ATTEND Family Medicine | DX: R30.0 Dysuria (principal) ==

== ENCOUNTER → 2020-03-02 | Outpatient (CLI) | payer OTHER ==
--- NOTE | 2020-03-02 15:33 | REP ---
INDICATION: LOW BACK PAIN. COMPARISON: None. TECHNIQUE: Full cervical spine series obtained with 6 views. FINDINGS: There is no compression fracture. There is normal alignment and lumbar lordosis. There is no spondylolysis or spondylolisthesis. There is mild diffuse spurring of the lumbar vertebral bodies. There is mild disc space narrowing at L1-2, L2-3 and L3-4, with slight narrowing at L4-5. There is sclerosis and spurring at the posterior facet joints of L5-S1. The posterior elements are intact. There is mild curvature convex to the right. IMPRESSION: No compression deformity. Mild diffuse degenerative changes as discussed in detail above. <Electronically signed by Nilson Lee > 03/02/20 [id number]
== END ==
LOC: M CLY 14:33
PROVIDERS: ATTEND Family Medicine
DX: M51.36 Other intervertebral disc degeneration, lumbar region (principal); M25.78 Osteophyte, vertebrae

== ENCOUNTER → 2020-03-15 | Outpatient (REF) | payer OTHER | LOC: M SFHCCLAY 10:51 | PROVIDERS: ATTEND Physician Assistant | DX: R30.0 Dysuria (principal) ==

== ENCOUNTER → 2020-04-22 | Outpatient (CLI) | payer OTHER ==
[~2020-04-22] MED LIST changes: +LIDOCAINE 1% MDV 20ML VIAL As Ordered ONE; +SODIUM BICARBONATE 8.4% INJ 50MEQ 50 ML VIAL As Ordered ONE
[2020-04-22 10:28] VITALS: BP 173/90
--- NOTE | 2020-04-22 15:11 | REP ---
INDICATION: RIGHT KNEE VIDALES CYST. COMPARISON: None. TECHNIQUE: The procedure was performed by Imelda Maya [facility], under the direct supervision of Dr. Oseguera. The risks and benefits of the procedure were explained to the patient and an informed consent was obtained both verbally and written. Directly prior to the start of the procedure a formal time-out was completed in the procedure room. FINDINGS: Ultrasound imaging prior to the procedures showed AA highly complex Vidales cyst measuring approximately 5.5 x 1.5 x 2.7 cm. The skin was prepped and draped in a sterile fashion. Two mL of buffered lidocaine was used as a local anesthetic. Using ultrasound guidance an 18 gauge spinal needle was inserted and advanced into the Vidales's cyst. No fluid was draining out of the Vidales cyst so a 5 Setswana skater catheter was then inserted under ultrasound guidance. Approximately 5 mL of extremely thick joint fluid was aspirated. Multiple or attempts were made to get more fluid aspirated, none were successful. The patient tolerated the procedure well and there were no immediate complications. After the appropriate amount of monitored convalescence the patient was discharged from the department. IMPRESSION: 1. Attempted ultrasound-guided right Vidales's cyst aspiration. <Electronically signed by Imelda Maya > 04/22/20 1416 <Electronically signed by Geo Oseguera > 04/22/20 [id number]
== END ==
LOC: M IRPRO 10:10
PROVIDERS: ATTEND Orthopaedic Surgery
DX: M71.21 Synovial cyst of popliteal space [Baker], right knee (principal); M25.561 Pain in right knee

== ENCOUNTER 2020-05-05 14:17 | Inpatient (IN) | payer MEDICARE, OTHER ==
[~2020-05-05] VITALS: Ht 162.6 cm; Wt 70.2 kg
[~2020-05-05 14:17] MED LIST changes: -LIDOCAINE 1% MDV 20ML VIAL As Ordered ONE; -SODIUM BICARBONATE 8.4% INJ 50MEQ 50 ML VIAL As Ordered ONE
[2020-05-05 14:59] LABS: BASO # 0.1 10^3/uL (0.0-0.2); BASO % 0.7 % (0.0-1.0); HEMATOCRIT 41.3 % (36.0-47.0); HEMOGLOBIN 13.3 g/dl (12.0-15.5); LYMPH # 1.4 10^3/uL (1.5-5.0); LYMPH % 11.8 % (24.0-44.0); MEAN CORPUSCULAR HEMOGLOBIN 28.7 pg (27.0-33.0); MEAN CORPUSCULAR HGB CONC 32.2 g/dl (32.0-36.5); MONO # 0.4 10^3/uL (0.0-0.8); MONO % 3.4 % (0.0-5.0); NEUTROPHILS # 9.5 10^3/uL (1.5-8.5); NEUTROPHILS % 79.8 % (36.0-66.0); PLATELET COUNT, AUTOMATED 371 10^3/uL (150-450); RED BLOOD COUNT 4.64 10^6/uL (4.00-5.40); WHITE BLOOD COUNT 11.9 10^3/uL (4.0-10.0)
[2020-05-05 15:09] LABS: INR 0.85; PROTHROMBIN TIME 11.8 SECONDS (12.5-14.3)
[2020-05-05 15:10] LABS: PARTIAL THROMBOPLASTIN TIME 29.6 SECONDS (24.2-38.5)
--- NOTE | 2020-05-05 15:12 | REP ---
INDICATION: sob/cHEST PAIN. COMPARISON: 03/24/2019. TECHNIQUE: SINGLE PORTABLE AP VIEW OF THE CHEST WAS PERFORMED. FINDINGS: There appears to be focal atelectasis or infiltrate in the left lateral lung base. The heart is not enlarged. Mediastinal silhouette is unremarkable. There are degenerative changes of the spine. IMPRESSION: Focal atelectasis or infiltrate lateral left lung base. <Electronically signed by Nilson Lee > 05/05/20 [id number]
[2020-05-05 15:13] LABS: D-DIMER QUANT 300.93 ng/ml (<500)
[2020-05-05 15:35] LABS: BLOOD UREA NITROGEN 13 MG/DL (7-18); CALCIUM LEVEL 10.3 MG/DL (8.5-10.1); CARBON DIOXIDE LEVEL 26 MEQ/L (21-32); CHLORIDE LEVEL 99 MEQ/L (98-107); CK-MB VALUE MASS 2.3 NG/ML (<3.6); CPK CREATINE PHOSPHOKINASE 101 U/L (26-192); CREATININE FOR GFR 0.94 MG/DL (0.55-1.30); FERRITIN 170 NG/ML (8-252); GLOMERULAR FILTRATION RATE > 60.0 (>51); GLUCOSE, FASTING 171 MG/DL (70-100); MB/CK RELATIVE INDEX 2.28 (< OR =4); POTASSIUM SERUM 3.9 MEQ/L (3.5-5.1); SODIUM LEVEL 139 MEQ/L (136-145); TROPONIN I < 0.02 NG/ML (< 0.10)
[2020-05-05] MEDS ORDERED: NS 1,000 ML IV ONE (15:45)
[2020-05-05] MEDS ORDERED: methylPREDNISolone 125MG 2ML VIAL IV ONE (15:45)
[2020-05-05] MEDS ORDERED: COMBIVENT RESPIMAT 100-20MCG INHALER 4GM INH ONE (15:45)
[2020-05-05 15:59] LABS: ALBUMIN 4.5 GM/DL (3.2-5.2); ALT/SGPT 35 U/L (12-78); BILIRUBIN,DIRECT < 0.1 MG/DL (0.0-0.2); BILIRUBIN,TOTAL 0.4 MG/DL (0.2-1.0); LIPASE 91 U/L (73-393); TOTAL PROTEIN 7.8 GM/DL (6.4-8.2)
[2020-05-05] MEDS ORDERED: GI COCKTAIL 50ML BTL(HYOSCYAMINE/MAALOX/LIDOCAINE VISCOUS)(1:3:1) PO ONE (16:00)
[2020-05-05] MEDS ORDERED: PANTOPRAZOLE 40MG VIAL (C9113 PER 1) IV ONE (16:00)
--- OUTSIDE RECORDS SUMMARY | 2020-05-05 16:14 | CCD ---
Continuity of Care Document (CCD) Created on: 04/25/2020 Leandro Lana External Reference #: [id number] : [id number] Sex: Female Author Author Lana DUNN Organization Unknown Address [address] [place] [address] [place] [address] Phone [phone] Care Team Providers Care Nematologist Name Role Phone Jovany Leal MD AUTM [phone] [employer] [facility] [phone] Problems Description No Information Available Social History Type Date Description Comments Sex Unknown ETOH Use Denies alcohol use Tobacco Use Start: Unknown Patient has never smoked Smoking Status Reviewed: 04/25/20 Patient has never smoked Allergies, Adverse Reactions, Alerts Active Allergies Reaction Severity Comments Date Sulfa 04/06/2018 Penicillin 04/06/2018 Medications Active Medications SIG Qnty Indications Ordering Provide r Date Doxycycline Monohydrate 100mg Caps ules 1 cap by mouth twice a day for 10 days 20caps J20.9 Frandy Flores JR., M.D. 04/25/2020 Prednisone 20mg Tablets 2 tab by mouth daily x 5 days 10tabs J20.9 Frandy Flores JR., M.D. Guaifenesin ER 1200mg Tablets ER 1 2HR 1 tab by mouth every 12 hours as needed for chest congestion 20tabs J 20.9 Frandy Flores JR., M.D. 04/25/2020 Metformin HCL ER (Mod) Unknown Tylenol 325mg Capsules last dose this am Unknown Cough Medicine Unknown Tylenol Cold Max 10-5-325mg/15ML Liquid Unknown Hydroxychloroquine Sulfate 200mg T ablets Unknown Patanol 0.1% Solution 1 drop both eyes twice a day as needed for allergy symptoms Unkno wn Restasis 0.05% Emulsion Unknown Flovent Diskus 100mcg/Blist Aerosol Unknown Xopenex 1.25mg/3ML Nebulizer use one vial per neb every 4-6hrs as needed. Unknown Pantoprazole Sodium 20mg Tablets D R 1 by mouth every day Unknown Benzonatate 100mg Capsules 1 capsule by mouth three times daily as needed for cough Unkn own Montelukast Sodium 4mg Chewtabs 1 by mouth every day Unknown Vitamin D (Ergocalciferol) 2000Unit Capsules Unknown Vitamin C 500mg Capsules Unknown Multi Complete Capsules Unknown Nasal Allergy 24 Hour 55mcg/Act Aerosol Unknown Claritin 10mg Capsules 1 by mouth every day Unknown Levothyroxine Sodium 75mcg Tablets Unknown History Medications Doxycycline Monohydrate 100mg Tabl ets 1 tab by mouth twice a day x10 days 20tabs J01.90 Frandy shahid JR., M.D. 11/19/2019 - 11/29/2019 Prednisone 20mg Tablets 1 tab twice a day for 5 days 8tabs J01.90 Frandy Flores JR., M.D. - 11/24/2019 Immunizations Description No Information Available Vital Signs Date Vital Result Comment 04/25/2020 11:33am BP Systolic 140 mmHg BP Diastolic 87 mmHg Heart Rate 102 /min Respiratory Rate 14 /min O2 % BldC Oximetry 97 % Body Temperature 98.7 F Weight 140.00 lb Height 64 inches 5'4" BMI (Body Mass Index) 24.0 kg/m2 Pain Level 8 11/19/2019 10:33am BP Systolic 128 mmHg BP Diastolic 78 mmHg Heart Rate 92 /min Respiratory Rate 18 /min O2 % BldC Oximetry 100 % Body Temperature 98.9 F Weight 145.00 lb Height 64 inches 5'4" BMI (Body Mass Index) 24.9 kg/m2 Pain Level 1 Results Description No Information Available Procedures Description No Information Available Medical Devices Description No Information Available Encounters Type Date Location Provider Dx Diagnosis Office Visit 04/25/2020 9:35a Main Office Miguel Dewey.A. J2 0.9 Acute bronchitis, unspecified J45.901 Unspecified asthma with (acu te) exacerbation Z20.828 Contact w and exposure to ot h viral communicable diseases Office Visit 11/19/2019 10:15a Main Office Carolynn Paul NP J01. 90 Acute sinusitis, unspecified Assessments Date Code Description Provider 04/25/2020 J20.9 Acute bronchitis, unspecified Ebonie Dunn P.A. 04/25/2020 J45.901 Unspecified asthma with (acute) exacerbation Miguel Dewey.APriyanka 04/25/2020 Z20.828 Contact with and (fonseca spected) exposure to other viral communicable diseases Mark Anthony Dunn P.A. 11/19/2019 J01.90 Acute sinusitis, unspecified Lorena Paul NP Plan of Treatment No Information Available Functional Status Description No Information Available Mental Status Description No Information Available Referrals Description No Information Available
--- OUTSIDE RECORDS SUMMARY | 2020-05-05 16:14 | CCD | Continuity of Care Document ---
Author Author Lana QUINTANILLA MD Organization Unknown Address [address] [place] [address] Phone [phone] Care Team Providers Care Community Relations Officer Name Role Phone Jovany Leal MD [facility] [phone] Problems Description No Information Available Social History Type Date Description Comments Sex Unknown ETOH Use Denies alcohol use Tobacco Use Start: Unknown Denies Smoking Smoking Status Reviewed: 10/14/19 Denies Smoking Allergies, Adverse Reactions, Alerts Active Allergies Reaction Severity Comments Date sulfa drugs 08/07/2019 Penicillin V 08/07/2019 Medications Active Medications SIG Qnty Indications Ordering Provide r Date Euflexxa 20mg/2ML Soln Prefill Syr wilmer left knee euflexxa #1 01/09/2020 bms/sw left knee #2 bms/ag 01/21/2020, left knee #3 01/28/20 bms/dga Leonel Stovall MD 01/08 Hydrocodone-Acetaminophen 5-325mg Tablets 1 tab every 4 hours for as needed post op pain. (please do not fill until 01/28/2020) 20tabs Rod Quintanilla MD 0 Levofloxacin 750mg Tablets Take One Tablet By Mouth Every Day Unknown Doxycycline Monohydrate 100mg Tabl ets Take One Tablet By Mouth Twice A Day For 10 Days Unkn own Prednisone 20mg Tablets Take One Tablet By Mouth Twice A Day For 5 Days Unknown Onetouch Delica Plus Lancets Extra Fine 33G Plus 33G Misc Test Every Day Unknown Prednisone 10mg Tablets Take Two Tablets By Mouth Every Day For 4 Days Then Take One Tablet Once Daily For 4 Days Unknown Azithromycin 250mg Tablets Take Two Tablets By Mouth AT Once On The First Day Then Take One Daily Thereafter Unknown Levothyroxine Sodium 50mcg Tablets Take One Tablet By Mouth Every Other Day Alternating With 75mcg Unknown Dulera 200-5mcg/Act Aerosol Inhale Two Puffs By Mouth Twice A Day Unknown Azelastine HCL (Nasal) 0.1% Soluti on Use 2 Sprays In Each Nostril Every Morning Unknown Ketorolac Tromethamine 0.4% Soluti on Instill One Drop Into Affected Eye Four Times A Day For 4 Days Unknown Tramadol HCL 50mg Tablets Take One Tablet By Mouth AT Bedtime For Cough Maximum Daily Dose 1 Tablet Unknown Clarithromycin 500mg Tablets Take One Tablet By Mouth Twice A Day For 10 Days Unknown Doxycycline Monohydrate 100mg Caps ules Take One Capsule By Mouth Twice A Day as Directed For 10 Days Unknown Nystatin 391840Gifo/ML Suspension Take 5ML By Mouth Four Times A Day Unknown Levocetirizine Dihydrochloride 5mg Tablets Take One Tablet By Mouth Every Day In The Evening Unknown Xerostomia Relief [place] Solution [place] 1 Dose (2 Sprays) Into The Mouth 3-4 Times Per Day Or as Needed Unknown Benzonatate 200mg Capsules Take One Capsule By Mouth Three Times A Day as Needed Unk nown Restasis 0.05% Emulsion Instill One Drop In Each Eye Two Times A Day Unknown Montelukast Sodium 10mg Tablets Take One Tablet By Mouth Every Day Unknown Metformin HCL 500mg Tablets Take Two Tablets By Mouth Twice A Day With Meals Unknown Meloxicam 15mg Tablets Take One Tablet By Mouth Every Day Unknown Levothyroxine Sodium 75mcg Tablets Take One Tablet By Mouth Every Other Day Alternating With 50mcg Unknown Pantoprazole Sodium 40mg Tablets D R Take One Tablet By Mouth Once A Day Unknown 0 Proctozone-HC 2.5% Cream Apply To Rectum Two Times A Day To Three Times A Day as Needed For Rectal Bleeding Unknown Hydroxychloroquine Sulfate 200mg T ablets Take One Tablet By Mouth Two Times Daily Unknown Albuterol Sulfate (2 .5mg/3ML) 0.083% Nebulizer Inhale The Contents Of One Vial Via Nebulizer Four Times A D ay as Needed Unknown Flovent HFA 220mcg/Act Aerosol Inhale Two Puffs By Mouth Twice A Day Unknown Premarin 0.625mg/GM Cream Insert 1/2 Gram Twice A Week AT Bedtime Vaginally Unknown Levalbuterol Tartrate 45mcg/Act Ae rosol Inhale Two Puffs By Mouth Four Times A Day as Needed Unknown Onetouch Verio Strips Use To Test Daily Unknown Onetouch Verio w/Device Kit Use as Directed Unknown Olopatadine HCL 0.1% Solution Instill One Drop In Each Eye Twice A Day Unknown Immunizations Description No Information Available Vital Signs Date Vital Result Comment 04/01/2020 12:55pm Body Temperature 96.9 F 12/04/2019 1:30pm Body Temperature 96.0 F Height 64 inches 5'4" Weight 140.00 lb BMI (Body Mass Index) 24.0 kg/m2 Results Test Acquired Date Facility Test Result H/L Range Note Laboratory test finding 01/24/2020 [facility] [address] [place] [address] (315)- - Coronavirus 2019 Nasopharygeal This nucleic aci <SEE NOTE> 1 1 This nucleic acid amplificat ion test was developed and its performance characteristics determined by [employer]. Nucleic acid amplification tests include PCR and TMA. This test has not been FDA cleared or approved. This test has been authorized by FDA under an Emergency Use Authorization (EUA). This test is only authorized for the duration of time the declaration that circumstances exist justifying the authorization of the emergency use of in vitro diagnostic tests for detection of SARS-CoV-2 virus and/or diagnosis of COVID-19 infection under section 564(b)(1) of the Act, 21 U.S.C. 360bbb-3 (b) (1), unless the authorization is terminated or revoked sooner. When diagnostic testing is negative, the possibility of a false negative result should be considered in the context of a patient's recent exposures and the presence of clinical signs and symptoms consistent with COVID-19. An individual without symptoms of COVID-19 and who is not shedding SARS-CoV-2 virus would expect to have a negative (not detected) result in this assay. Performed at: [facility] [address] [id number] Canoe Inspector: Angie Torres MD, Phone: [phone] Not Detected Procedures Date Code Description Status 04/01/2020 91156 Inject/Drain Joint/Bursa Major C ompleted 02/06/2020 Inject/Drain Joint/Bursa Major C ompleted 01/29/2020 89646 Arthroscopy Knee W/M eniscectomy Inc Chondroplasty (Med Or Lateral Completed 01/28/2020 Inject/Drain Joint/Bursa Major C ompleted 01/21/2020 60511 Inject/Drain Joint/Bursa Major C ompleted 01/09/202015956 Inject/Drain Joint/Bursa Major C ompleted Medical Devices Description No Information Available Encounters Type Date Location Provider Dx Diagnosis Office Visit 04/20/2020 2:45p [place] Rod Quintanilla MD Z47. 89 Encounter for other orthopedic aftercare M17.11 Unilateral primary osteoarth ritis, right knee Assessments Date Code Description Provider 04/22/2020 M17.11 Unilateral primary osteoarthriti s, right knee Rod Quintanilla MD 04/22/2020 M71.21 Synovial cyst of popliteal space [Vidales], right knee Rod Quintanilla MD 04/20/2020 Z47.89 Encounter for other orthopedic a ftercare Rod Quintanilla MD 04/20/2020 M17.11 Unilateral primary osteoarthriti s, right knee Rod Quintanilla MD 04/01/2020 M71.21 Synovial cyst of popliteal space [Vidales], right knee Rod Quintanilla MD 04/01/2020 M25.461 Effusion, right knee Rod azevedo MD 04/01/2020 Z47.89 Encounter for other orthopedic a ftercare Rod Quintanilla MD 02/26/2020 Z47.89 Encounter for other orthopedic a ftercare Rod Quintanilla MD 02/26/2020 M17.12 Unilateral primary osteoarthriti s, left knee Rod Quintanilla MD 02/06/2020 M25.461 Effusion, right knee Rod azevedo MD 02/06/2020 Z47.89 Encounter for other orthopedic a renetta Quintanilla MD 01/29/2020 M23.241 Derangement of anter ior horn of lateral meniscus due to old tear or injury, right knee Rod Quintanilla MD 01/29/2020 M22.41 Chondromalacia patellae, right k nee Rod Quintanilla MD 01/28/2020 M17.12 Unilateral primary osteoarthriti s, left knee Delroy Avila PA-C 01/21/2020 M23.241 Derangement of anter ior horn of lateral meniscus due to old tear or injury, right knee Rod Quintanilla MD 01/21/2020 M17.12 Unilateral primary osteoarthriti s, left knee Delroy Avila PA-C 01/09/2020 M17.12 Unilateral primary osteoarthriti s, left knee JUDITH ResendizC 12/04/2019 M23.241 Derangement of anter ior horn of lateral meniscus due to old tear or injury, right knee Rod Quintanilla MD 12/04/2019 M71.21 Synovial cyst of popliteal space [Vidales], right knee Rod Quintanilla MD 12/04/2019 M17.0 Bilateral primary osteoarthritis of knee Rod Quintanilla MD Plan of Treatment No Information Available Functional Status Description No Information Available Mental Status Description No Information Available Referrals Refer to Dr Reason for Referral Status Appt Date Rod Quintanilla MD DME PER CHUCKIE AT [facility] NO AU TH REQUIRED FOR SHORT RUNNER KNEE BRACE(L1833) AND COVERED AT 100% TO VALORIE NT CALL REF #[id number] Created [address] [place] [address] [address] [place] [id number] [phone] Rod Quintanilla MD SURGERY PER KARLA AT [facility] N O AUTH REQUIRED FOR RT KNEE SURGERY ([id number] [place] [id number]) TO SURGERY NT Created [address] [place] [address] [phone] Rod Quintanilla MD [address] Crutches Allum [employer] no authorization required Created [address] [place] [address] [phone] Rod Quintanilla MD EUFLEXXA INJ'S NO AUTH REQUIRED TO [place] HEDULING NT Created [address] [place] [address] [phone]
--- OUTSIDE RECORDS SUMMARY | 2020-05-05 16:14 | CCD | Continuity of Care Document ---
Author Author Lana DUNN Organization Unknown Address [address] [place] [address] [place] [address] Phone [phone] Care Team Providers Care Eligibility Services Representative Name Role Phone Jovany Leal MD [facility] [phone] [employer] [facility] [phone] Problems Description No Information Available Social History [...]
--- OUTSIDE RECORDS SUMMARY | 2020-05-05 16:15 | CCD | Continuity of Care Document ---
Author Author Lana QUINTANILLA MD Organization Unknown Address [address] [place] [address] Phone [phone] Care Team Providers Care Handle Sander Operator Name Role Phone Jovany Leal MD [facility] [phone] Problems Description No Information Available Social History [...] as Directed For 10 Days Unknown Nystatin 511853Tklc/ML Suspension Take 5ML By Mouth Four Times A Day Unknown Levocetirizine Dihydrochloride 5mg Tablets Take One Tablet By Mouth Every Day In The Evening Unknown Xerostomia Relief [place] Solution [place] 1 Dose (2 Sprays) Into The Mouth [...] H/L Range Note Laboratory test finding 01/24/2020 [facility] [address] [place] [address] (315)- - Coronavirus 2019 Nasopharygeal This nucleic aci <SEE NOTE> 1 1 This nucleic acid amplificat ion test was developed and its performance characteristics determined by [employer]. Nucleic acid amplification tests include PCR and [...] detected) result in this assay. Performed at: [facility] [address] [id number] Windows Consultant: Angie Torres MD, Phone: [phone] Not Detected Procedures Date Code Description Status 02/06/2020 Inject/Drain Joint/Bursa Major C ompleted 01/29/2020 25324 Arthroscopy Knee W/M eniscectomy Inc Chondroplasty (Med Or Lateral Completed 01/28/2020 Inject/Drain Joint/Bursa Major C ompleted 01/21/2020 Inject/Drain Joint/Bursa Major C ompleted 01/09/2020 Inject/Drain Joint/Bursa Major C ompleted 10/22/2019 48920 MRI Lower Extremity Any Joint Co mpleted 10/14/2019 49999 X-Ray Knee Complete W/Obliques & Tunnel And/Or Standing Views Completed 10/14/2019 79762 X-Ray Spine Lumbosacral Complete Inc Bending Views Min Of 6 Completed Medical Devices Description No Information Available Encounters Type Date Location Provider Dx Diagnosis Office Visit 10/14/2019 2:30p [place] MD M71.21 Synovial cyst of popliteal space [Vidales], right knee M54.16 Radiculopathy, lumbar region Assessments Date Code Description Provider 04/01/2020 Z47.89 Encounter for other orthopedic a renetta Quintanilla MD 04/01/2020 M17.12 Unilateral primary osteoarthriti s, left knee Rod Quintanilla MD 04/01/2020 M25.561 Pain in right knee Rod farris MD 02/26/2020 Z47.89 Encounter for other orthopedic a renetta Quintanilla MD 02/26/2020 M17.12 Unilateral primary osteoarthriti s, left knee Rod Quintanilla MD 02/06/2020 M25.461 Effusion, right knee Rod azevedo MD 02/06/2020 Z47.89 Encounter for other orthopedic a ftercare Rod Quintanilla MD 01/29/2020 M23.241 Derangement of anter ior horn of lateral meniscus due to old tear or injury, right knee Rod Quintanilla MD 01/29/2020 M22.41 Chondromalacia patellae, right k keme Rod Quintanilla MD 01/28/2020 M17.12 Unilateral primary [...] primary osteoarthritis of knee Rod Quintanilla MD 10/31/2019 M23.611 Other spontaneous di sruption of anterior cruciate ligament of right knee Zen Camargo MD 10/31/2019 M23.241 Derangement of anter ior horn of lateral meniscus due to old tear or injury, right knee Zen Camargo MD 10/31/2019 M71.21 Synovial cyst of popliteal space [Vidales], right knee Zen Camargo MD 10/22/2019 M71.21 Synovial cyst of popliteal space [Vidales], right knee Zen Camargo MD 10/22/2019 M71.21 Synovial cyst of popliteal space [Vidales], right knee MRI 10/14/2019 M71.21 Synovial cyst of popliteal space [Vidales], right knee Zen Camargo MD 10/14/2019 M54.16 Radiculopathy, lumbar region Bru josé Camargo MD Plan of Treatment 04/01/2020 - Rod Quintanilla MD* Z47.89 Encounter for other orthopedic aftercare * M17.12 Unilateral primary osteoarthritis, left knee * M25.561 Pain in right knee* New Xrays:* Ultrasound guided draining of vidales cyst right knee, Ordered: 04/01/20 * New Orders:* Euflexxa RT Knee Injection, Ordered: 04/01/20 * Follow up:* the or with ANM via telemed Functional Status Description No Information Available Mental Status Description No Information Available Referrals Refer to Dr Reason for Referral Status Appt Date Rod Quintanilla MD SURGERY PER KARLA AT [facility] N O AUTH REQUIRED FOR RT KNEE SURGERY ([id number] [place] [id number]) TO SURGERY NT Created [address] [place] [address] [phone] Rod Quintanilla MD [address] Crutches Allum [place], [place] no authorization required Created [address] [place] [address] [phone] Rod Quintanilla MD EUFLEXXA INJ'S NO AUTH REQUIRED TO SC HEDULING NT Created [facility] [place] [address] [phone] Rod Quintanilla MD MRI RT KNEE NO AUTH REQUIRED , PASSING TO XRAY TRACKER. LM Created [facility] [place] [address] [phone]
--- OUTSIDE RECORDS SUMMARY | 2020-05-05 16:15 | CCD | Continuity of Care Document ---
Author Author Lana QUINTANILLA MD Organization Unknown Address [address] [place] [address] Phone [phone] Care Team Providers Care Roller Varnisher Name Role Phone Jovany Leal MD [facility] [phone] Problems Description No Information Available Social History [...] as Directed For 10 Days Unknown Nystatin 065738Mogc/ML Suspension Take 5ML By Mouth Four Times A Day Unknown Levocetirizine Dihydrochloride 5mg Tablets Take One Tablet By Mouth Every Day In The Evening Unknown Xerostomia Relief Filion Solution Filion 1 Dose (2 Sprays) Into The Mouth [...] Note Laboratory test finding 01/24/2020 [facility] [address] [place] [address] (315)- - Coronavirus 2019 Nasopharygeal This nucleic aci <SEE NOTE> 1 1 This nucleic acid amplificat ion test was developed and its performance characteristics determined by [employer]. Nucleic acid amplification tests include PCR and [...] detected) result in this assay. Performed at: [facility] [id number] Occup Therapist: Angie Torres MD, Phone: [phone] Not Detected Procedures Date Code Description Status 04/01/2020 99022 Inject/Drain Joint/Bursa Major C ompleted 02/06/202034200 Inject/Drain Joint/Bursa Major C ompleted 01/29/2020 97695 Arthroscopy Knee W/M eniscectomy Inc Chondroplasty (Med Or Lateral Completed 01/28/202028878 Inject/Drain Joint/Bursa Major C ompleted 01/21/202043923 Inject/Drain Joint/Bursa Major C ompleted 01/09/202028422 Inject/Drain Joint/Bursa Major C ompleted 10/22/2019 47401 MRI Lower Extremity Any Joint Co mpleted Medical Devices Description No Information Available Encounters Description No Information Available Assessments Date Code Description Provider 04/01/2020 M71.21 Synovial cyst of popliteal space [Ivdales], right knee Rod Quintanilla MD 04/01/2020 M25.461 Effusion, right knee Rod azevedo MD 04/01/2020 Z47.89 Encounter for other orthopedic a renetta Quintanilla MD 02/26/2020 Z47.89 Encounter for other [...] osteoarthriti s, left knee Delroy Avila PA-C 12/04/2019 M23.241 Derangement of anter ior horn [...] of popliteal space [Vidales], right knee MRI Plan of Treatment Future Appointment(s):* 04/20/2020 2:45 pm - Rod Quintanilla MD at [place] 04/01/2020 - Rod Quintanilla MD* M71.21 Synovial cyst of popliteal space [Vidales], right knee * M25.461 Effusion, right knee* New Orders:* Euflexxa RT Knee Injection, Ordered: 04/01/20 * Follow up:* the or with ANM via telemed * Z47.89 Encounter for other orthopedic aftercare Functional Status Description No Information Available Mental Status Description No Information Available Referrals Refer to Reason for Referral Status Appt Date Rod Quintanilla MD DME PER CHUCKIE AT [facility] NO AU TH REQUIRED FOR SHORT RUNNER KNEE BRACE(L1833) AND COVERED AT 100% TO VALORIE NT CALL REF #[id number] Created [address] [place] [address] [phone] Rod Quintanilla MD SURGERY PER KARLA AT [facility] N O AUTH REQUIRED FOR RT KNEE SURGERY ([address] [place] [address]) TO SURGERY NT Created [address] [place] [address] [phone] Rod Quintanilla MD [address] Crutches Allum Push B kayceeshirinWally no authorization required Created [address] [place] [address] [phone] Rod Quintanilla MD EUFLEXXA INJ'S NO AUTH REQUIRED TO SC HEDULING NT Created [address] [place] [address] [phone] Rod Quintanilla MD MRI RT KNEE NO AUTH REQUIRED , PASSING TO XRAY TRACKER. LM Created [address] [place] [address] [phone]
--- OUTSIDE RECORDS SUMMARY | 2020-05-05 16:15 | CCD | Continuity of Care Document ---
Author Author Lana QUINTANILLA MD Organization Unknown Address [address] [place] [address] Phone [phone] Care Team Providers Care Cso Name Role Phone Jovany Leal MD [facility] [phone] Problems Description No Information Available Social History [...] as Directed For 10 Days Unknown Nystatin 098837Vfae/ML Suspension Take 5ML By Mouth Four Times A Day Unknown Levocetirizine Dihydrochloride 5mg Tablets Take One Tablet By Mouth Every Day In The Evening Unknown Xerostomia Relief [place] Solution [place] 1 Dose (2 Sprays) Into The Mouth [...] H/L Range Note Laboratory test finding 01/24/2020 [facility] [address] [place] [address] (315)- - Coronavirus 2019 Nasopharygeal This nucleic aci <SEE NOTE> 1 1 This nucleic acid amplificat ion test was developed and its performance characteristics determined by [employer]. Nucleic acid amplification tests include PCR and [...] detected) result in this assay. Performed at: [facility] [address] [id number] Campus Administrator: Angie Torres MD, Phone: [phone] Not Detected Procedures Date Code Description Status 04/01/2020 28578 Inject/Drain Joint/Bursa Major C ompleted 02/06/202011673 Inject/Drain Joint/Bursa Major C ompleted 01/29/2020 12814 Arthroscopy Knee W/M eniscectomy Inc Chondroplasty (Med Or Lateral Completed 01/28/202011531 Inject/Drain Joint/Bursa Major C ompleted 01/21/202097972 Inject/Drain Joint/Bursa Major C ompleted 01/09/202053251 Inject/Drain Joint/Bursa Major C ompleted 10/22/2019 71797 MRI Lower Extremity Any Joint Co mpleted Medical Devices Description No Information Available Encounters Type Date Location Provider Dx Diagnosis Office Visit 04/20/2020 2:45p [place] Rod Quintanilla MD Z47. 89 Encounter for other orthopedic aftercare Assessments Date Code Description Provider 04/20/2020 Z47.89 Encounter for other orthopedic a silverare Rod Quintanilla MD 04/01/2020 M71.21 Synovial cyst of popliteal space [Vidales], right knee Rod Quintanilla MD 04/01/2020 M25.461 Effusion, right knee Rod azevedo MD 04/01/2020 Z47.89 Encounter for other orthopedic a ftmortezaare Rod Quintanilla MD 02/26/2020 Z47.89 Encounter for [...] [Vidales], right knee MRI Plan of Treatment 04/01/2020 - Rod Quintanilla MD* M71.21 Synovial [...] Rod Quintanilla MD DME PER CHUCKIE AT [facility] NO AU TH REQUIRED FOR SHORT RUNNER KNEE BRACE(L1833) AND COVERED AT 100% TO VALORIE NT CALL REF #[id number] Created [address] [place] [address] [phone] Rod Quintanilla MD SURGERY PER KARLA AT [facility] N O AUTH REQUIRED FOR RT KNEE SURGERY ([id number] [place] [id number]) TO SURGERY NT Created [facility] [place] [address] [phone] Rod Quintanilla MD E[address] Crutches Allum Push [place] no authorization required Created [facility] [place] [address] [phone] Rod Quintanilla MD EUFLEXXA INJ'S NO AUTH REQUIRED TO SC HEDULING NT Created [facility] [place] [address] [phone]
--- OUTSIDE RECORDS SUMMARY | 2020-05-05 16:15 | CCD ---
Author Author [facility] Organization [facility] Address Unknown Phone Unavailable Care Team Providers Care Door Clamper Name Role Phone Vic Flores Unavailable PROBLEMS Type Condition ICD9-CM Code [id number] Code Onset Dates Condition S tatus SNOMED Code Notes Problem Sinusitis, unspecified chronicity, unspecified location J32.9 Active 37686190 Problem Moderate persistent asthma with acute exacerbation J45.41 Active 788302849622494 Problem Dysphagia, unspecified type R13.10 Active 4073 9000 Problem Tremor R25.1 Active 20406405 Problem Sinusitis chronic, frontal J32.1 Active 18229 002 Problem Allergic rhinitis due to pollen, unspecified seasonality J30.1 Active 64801233 Problem Vertigo R42 Active 909505358 Problem Dyspareunia in female N94.10 Active 70838712 Problem Impaired fasting glucose R73.01 Active 7541693 07 Problem Midline cystocele N81.11 Active 843629438 Problem Unspecified asthma, uncomplicated J45.909 Active 36275610 Problem Dry eye syndrome, unspecified laterality H04.129 Active 18537123 Problem Perimenopausal vasomotor symptoms N95.1 Active 961063380 Problem Sjogren''s syndrome, with unspecified organ involvement M35.00 Active 27676494 Problem Lymphadenopathy of head and neck region R59.0 Active 656654499 Problem Vasomotor symptoms due to menopause N95.1 Acti ve 905444140 Problem Vitamin D deficiency, unspecified E55.9 Active 10077007 Problem 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 Active 07207547 Problem Abdominal pain, right lower quadrant R10.31 Act angela 245518561 Problem Fat pad E65 Active 475380443 Problem Restless legs syndrome G25.81 Active 03406642 Problem Moderate persistent asthma without complication J4 5.40 Active 294811616 Problem Hypothyroidism, unspecified E03.9 Active 4093 0008 Problem Elevated fasting glucose R73.01 Active 6361833 7 Problem Gastro-esophageal reflux disease without esophagitis K21.9 Active 443432424 Problem Thrush B37.0 Active 27702589 Problem Other hyperlipidemia E78.4 Active 31392517 Problem Constipation in female K59.00 Active 34524373 Problem Stress incontinence in female N39.3 Active 60 615360 Problem Vaginal atrophy N95.2 Active 999864268 Problem Other chronic pain G89.29 Active 71647797 Problem Anxiety F41.9 Active 72861463 Problem Mixed hyperlipidemia E78.2 Active 878201615 Problem Allergic rhinitis due to fungal spores, unspecif ied seasonality J30.89 Active 68730610 Problem SHEILA positive R76.8 Active 911287473 Problem Acquired absence of both cervix and uterus Z90.710 Active 638769585 Problem Essential hypertension I10 Active 0116417 Problem Internal hemorrhoids K64.8 Active 39839076 Problem 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, 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 Active 880 1005 Problem Chondromalacia of patella, 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 Active 88693209 ALLERGIES Allergen (clinical drug ingredient) Drug/Non Drug Allergy do cumented on EMR Reaction Allergy Type Onset Date Status Penicillin (For Allergies Use Only) Hives Drug Allerg y Active bees Anaphylaxis Non Drug Allergy Active pravachol body aches Non Drug Allergy Active sulfa hives Non Drug Allergy Active Parafon Forte DSC RASH Drug Allergy Activ e ENCOUNTERS from 1964 to 2020-03-15 Encounter Location Date Provider Diagnosis [facility] [address] [place] [address] Feb Vic Flores IMMUNIZATIONS Vaccine Route Administration Date Status Influenza (18 yrs & older) Flublok IM Intramuscular Jan 02, 2019 Administered Influenza (18 yrs & older) Flublok IM Intramuscular Jan 02, 2018 Administered TDAP 0.5mL (Boostrix) IM Intramuscular Apr 25, 2013 Administe red Influenza (6mo & up) Fluzone IM Intramuscular Feb 03, 2015 Ad ministered SOCIAL HISTORY Tobacco Use: Social History Observation Description Date Details (start date - stop date) Former Smoker Sex Assigned At : Social History Observation Description Sex Assigned At Unknown Education: Question Answer Notes Level of Education: High School Audit Question Answer Notes Total Score: 0 Interpretation: Alcohol Education Rastafarian: Question Answer Notes Rastafarian No roman catholic beliefs that would impact health care. Sexual Hx: Question Answer Notes Had sex in the last 12 months (vaginal, oral, or anal)? Yes Have you ever had an STD? No with Men only Use protection? No Drug and Alcohol Question Answer Notes Total Score: 0 Interpretation: No problems reported Alcohol Screening: Question Answer Notes Did you have a drink containing alcohol in the past year? No Points 0 Interpretation Negative BMI Care Goal Follow-Up Question Answer Notes Above Normal BMI Follow-Up Dietary management educatio n, guidance, and counseling Tobacco Use: Question Answer Notes Are you a: former smoker quit age 15 /updated 03/02/2020 Additional Findings: Tobacco Non-User Current non-smoker How long has it been since you last smoked? > 10 years REASON FOR REFERRAL No Information VITAL SIGNS No information MEDICATIONS Medication SIG (Take, Route, Frequency, Duration) Notes Start Da te End Date Status Vitamin C 1 TAB Orally DAILY/takes during the winter Active Levothyroxine Sodium 75 MCG TAKE ONE TABLET BY MOUTH E VERY OTHER DAY ALTERNATING WITH 50MCG orally Daily Active Iron 90 (18 Fe) MG 1 tablet Orally Once a day Active Cipro 500 MG 1 tablet Orally every 12 hrs for 7 days 2019 Active Albuterol Sulfate (2.5 MG/3ML) 0.083% 3 ml as needed I nhalation Three times a day Active Benzonatate 200 MG 1 capsule Orally three times daily as needed Active Singulair 10 mg 1 tab Orally Once a day Active Synthroid 50 MCG 1 tab orally alternating with 75mcg every other day Active Flovent HFA 220 MCG/ACT 2 puff Inhalation Twice a day Active Restasis 0.05 % 1 into affected eye Ophthalmic qd Active Olopatadine HCl 0.1 % 1 drop into affected eye Ophthalmic Twice a day Active Fluconazole 150 MG 1 tablet Orally one now, repeat in 3 days Feb, Not-Taking Multivitamins 1 TAB Orally DAILY Act angela Diflucan 150 MG 1 tablet Orally Daily, repeat once in 3 days for 2 days Feb, Active Premarin 0.625 MG/GM 1/2 gm Vaginal twice a week at HS 03 Aug, 2019 Not-Taking Vitamin D 1000 UNIT 2 tablet Orally bid Active Xopenex HFA 45 MCG/ACT 4 puffs as needed Inhalation every 4 hrs Active Pantoprazole Sodium 40 MG 1 tablet Orally Once a day Active Flonase Sensimist 27.5 MCG/SPRAY 1 puff in each nostril Nasally Onc e a day Active Metformin HCl 500 MG 1 tabs with meals, bid orally bid for 90 d ay(s) Apr, Active Claritin 10 MG 1 tablet Orally Once a day Active Hydroxychloroquine Sulfate 200 MG 1 tab Orally bid Active One Touch Delica 33 gauge as directed Aug, Active Ciprofloxacin HCl 250 MG 1 tablet Orally every 12 hrs for 3 day( s) Feb, Not-Taking OneTouch Verio - as directed In Vitro Daily Aug, Active OneTouch Verio w/Device as directed Aug, Active PROCEDURES No Information RESULTS No Results REASON FOR VISIT uti sx MEDICAL (GENERAL) HISTORY Type Description Date Medical History IBS Medical History hyperlipidemia borderline Medical History ASTHMA Medical History internal hemorroids Medical History sjorgrens Medical History Tyrer Cuzick score 6.89% Surgical History marylu. salpingectomy Surgical History tubal ligation Surgical History endometrial ablation 07/03 Surgical History D&C 05/05 Surgical History laparscopic 11/02 Surgical History ABLATION 2009 Surgical History COLONOSCOPY 09/19/13 Surgical History LAVH . culdoplasty and enter ocele repair , ovaries remain 11/2010 Surgical History Colonoscopy,UGI 09/21/17 Surgical History lip Bx 01/28/2018 Surgical History right knee surgery 01/29/2020 Hospitalization History Sleep study 07/27/14 Hospitalization History [facility] for dehydration aft er colonoscopy for IV and bloodwork 09/22/17 Goals Section No Information Health Concerns No Information MEDICAL EQUIPMENT No Information MENTAL STATUS No Information FUNCTIONAL STATUS No Information ASSESSMENTS No Information PLAN OF TREATMENT Medication Medication Name Sig Start Date Stop Date Cipro 500 MG 1 tablet Orally every 12 hrs for 7 days Feb, Diflucan 150 MG 1 tablet Orally Daily, repeat once in 3 days for 2 days Feb, Next Appt Details Provider Name:Jovany Leal, 2020-06-22 01 :00:00 PM, [address] [place], [address], Provider Name:Mahogany Patterson, 2020-09-08 01:00:00 PM, [address] [place], [address], Insurance Providers Payer Name Payer Address Payer Phone Insured Name Patient Relati onship to Insured Coverage Start Date Coverage End Date [facility] [id number] [facility] [id number] ELHAM VERAS
--- OUTSIDE RECORDS SUMMARY | 2020-05-05 16:15 | CCD ---
Author Author [facility] Organization [facility] Address Unknown Phone Unavailable Care Team Providers Care Regulatory Intern Name Role Phone Vic Flores Unavailable PROBLEMS Type Condition ICD9-CM Code [id number] Code Onset Dates Condition S tatus SNOMED Code Notes Problem Sinusitis, unspecified chronicity, unspecified location J32.9 Active 59289220 Problem Moderate persistent asthma with acute exacerbation J45.41 Active 185501530452289 Problem Dysphagia, unspecified type R13.10 Active 4073 9000 Problem Tremor R25.1 Active 00094913 Problem Sinusitis chronic, frontal J32.1 Active 18297 002 Problem Allergic rhinitis due to pollen, unspecified seasonality J30.1 Active 67323648 Problem Vertigo R42 Active 590798486 Problem Dyspareunia in female N94.10 Active 71459582 Problem Impaired fasting glucose R73.01 Active 7358591 07 Problem Midline cystocele N81.11 Active 763087015 Problem Unspecified asthma, uncomplicated J45.909 Active 87922766 Problem Dry eye syndrome, unspecified laterality H04.129 Active 27096605 Problem Perimenopausal vasomotor symptoms N95.1 Active 562576617 Problem Sjogren''s syndrome, with unspecified organ involvement M35.00 Active 90868348 Problem Lymphadenopathy of head and neck region R59.0 Active 586606323 Problem Vasomotor symptoms due to menopause N95.1 Acti ve 151085908 Problem Vitamin D deficiency, unspecified E55.9 Active 92632904 Problem 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 Active 02348084 Problem Abdominal pain, right lower quadrant R10.31 Act angela 995762842 Problem Fat pad E65 Active 587443321 Problem Restless legs syndrome G25.81 Active 20520985 Problem Moderate persistent asthma without complication J4 5.40 Active 598583068 Problem Hypothyroidism, unspecified E03.9 Active 4093 0008 Problem Elevated fasting glucose R73.01 Active 0837657 7 Problem Gastro-esophageal reflux disease without esophagitis K21.9 Active 539789761 Problem Thrush B37.0 Active 69248240 Problem Other hyperlipidemia E78.4 Active 79653084 Problem Constipation in female K59.00 Active 52440269 Problem Stress incontinence in female N39.3 Active 60 230408 Problem Vaginal atrophy N95.2 Active 720248629 Problem Other chronic pain G89.29 Active 44782784 Problem Anxiety F41.9 Active 58795133 Problem Mixed hyperlipidemia E78.2 Active 394078568 Problem Allergic rhinitis due to fungal spores, unspecif ied seasonality J30.89 Active 29879956 Problem SHEILA positive R76.8 Active 345889983 Problem Acquired absence of both cervix and uterus Z90.710 Active 392745752 Problem Essential hypertension I10 Active 9025411 Problem Internal hemorrhoids K64.8 Active 46370648 Problem 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 Sexual [...] Information RESULTS No Results REASON FOR VISIT drug interaction MEDICAL (GENERAL) HISTORY Type Description Date Medical [...] Provider Name:Jovany Leal, 2020-06-22 01 :00:00 PM, [address] [place], [address], Provider Name:Mahogany Patterson, 2020-09-08 01:00:00 PM, [address] [place], [address], Insurance Providers Payer Name Payer Address Payer Phone Insured Name Patient Relati onship to Insured Coverage Start Date Coverage End Date [facility] [id number] [facility] [phone] ELHAM VERAS
--- OUTSIDE RECORDS SUMMARY | 2020-05-05 16:15 | CCD ---
Author Author [facility] Organization [facility] Address Unknown Phone Unavailable Care Team Providers Care Rotary Shear Cutter Name Role Phone Vic Flores Unavailable PROBLEMS Type Condition ICD9-CM Code [id number] Code Onset Dates Condition S tatus SNOMED Code Notes Problem Sinusitis, unspecified chronicity, unspecified location J32.9 Active 38314088 Problem Moderate persistent asthma with acute exacerbation J45.41 Active 359532839615336 Problem Dysphagia, unspecified type R13.10 Active 4073 9000 Problem Tremor R25.1 Active 42295472 Problem Sinusitis chronic, frontal J32.1 Active 58451 002 Problem Allergic rhinitis due to pollen, unspecified seasonality J30.1 Active 22695530 Problem Vertigo R42 Active 297998260 Problem Dyspareunia in female N94.10 Active 58754790 Problem Impaired fasting glucose R73.01 Active 3889871 07 Problem Midline cystocele N81.11 Active 293767704 Problem Unspecified asthma, uncomplicated J45.909 Active 09930174 Problem Dry eye syndrome, unspecified laterality H04.129 Active 05628676 Problem Perimenopausal vasomotor symptoms N95.1 Active 990192917 Problem Sjogren''s syndrome, with unspecified organ involvement M35.00 Active 95391110 Problem Lymphadenopathy of head and neck region R59.0 Active 903678107 Problem Vasomotor symptoms due to menopause N95.1 Acti ve 316028749 Problem Vitamin D deficiency, unspecified E55.9 Active 78164718 Problem 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 Active 94208718 Problem Abdominal pain, right lower quadrant R10.31 Act angela 344434996 Problem Fat pad E65 Active 822982012 Problem Restless legs syndrome G25.81 Active 76052376 Problem Moderate persistent asthma without complication J4 5.40 Active 244470948 Problem Hypothyroidism, unspecified E03.9 Active 4093 0008 Problem Elevated fasting glucose R73.01 Active 0360054 7 Problem Gastro-esophageal reflux disease without esophagitis K21.9 Active 947769011 Problem Thrush B37.0 Active 20173815 Problem Other hyperlipidemia E78.4 Active 74403742 Problem Constipation in female K59.00 Active 21028638 Problem Stress incontinence in female N39.3 Active 60 840371 Problem Vaginal atrophy N95.2 Active 271542219 Problem Other chronic pain G89.29 Active 11198376 Problem Anxiety F41.9 Active 37861910 Problem Mixed hyperlipidemia E78.2 Active 511307220 Problem Allergic rhinitis due to fungal spores, unspecif ied seasonality J30.89 Active 36415792 Problem SHEILA positive R76.8 Active 082987604 Problem Acquired absence of both cervix and uterus Z90.710 Active 733218496 Problem Essential hypertension I10 Active 5572934 Problem Internal hemorrhoids K64.8 Active 44793653 Problem 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 [address] [place] [address] Feb Vic Flores IMMUNIZATIONS Vaccine Route Administration [...] Notes Total Score: 0 Interpretation: Alcohol Education Quaker: Question Answer Notes Quaker No anabaptist beliefs that would impact health care. Sexual [...] Information RESULTS No Results REASON FOR VISIT med concern MEDICAL (GENERAL) HISTORY Type Description Date Medical [...] Provider Name:Jovany Leal, 2020-06-22 01 :00:00 PM, [address] [place], [address], Provider Name:Mahogany Patterson, 2020-09-08 01:00:00 PM, [address] [place], [address], Insurance Providers Payer Name Payer Address Payer Phone Insured Name Patient Relati onship to Insured Coverage Start Date Coverage End Date [facility] [id number] [facility] [id number] ELHAM VERAS
--- OUTSIDE RECORDS SUMMARY | 2020-05-05 16:15 | CCD ---
Author Author [facility] Organization [facility] Address Unknown Phone Unavailable Care Team Providers Care Regional Psychiatric Director Name Role Phone Vic Flores Unavailable PROBLEMS Type Condition ICD9-CM Code [id number] Code Onset Dates Condition S tatus SNOMED Code Notes Problem Sinusitis, unspecified chronicity, unspecified location J32.9 Active 25111977 Problem Moderate persistent asthma with acute exacerbation J45.41 Active 086747942047103 Problem Dysphagia, unspecified type R13.10 Active 4073 9000 Problem Tremor R25.1 Active 30594330 Problem Sinusitis chronic, frontal J32.1 Active 90036 002 Problem Allergic rhinitis due to pollen, unspecified seasonality J30.1 Active 44121486 Problem Vertigo R42 Active 033395477 Problem Dyspareunia in female N94.10 Active 40673675 Problem Impaired fasting glucose R73.01 Active 6372600 07 Problem Midline cystocele N81.11 Active 938469173 Problem Unspecified asthma, uncomplicated J45.909 Active 85406618 Problem Dry eye syndrome, unspecified laterality H04.129 Active 66028482 Problem Perimenopausal vasomotor symptoms N95.1 Active 897489597 Problem Sjogren''s syndrome, with unspecified organ involvement M35.00 Active 85567580 Problem Lymphadenopathy of head and neck region R59.0 Active 847801629 Problem Vasomotor symptoms due to menopause N95.1 Acti ve 134137688 Problem Vitamin D deficiency, unspecified E55.9 Active 59023422 Problem 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 Active 88494676 Problem Abdominal pain, right lower quadrant R10.31 Act angela 020992801 Problem Fat pad E65 Active 627575621 Problem Restless legs syndrome G25.81 Active 91530205 Problem Moderate persistent asthma without complication J4 5.40 Active 454745950 Problem Hypothyroidism, unspecified E03.9 Active 4093 0008 Problem Elevated fasting glucose R73.01 Active 0259257 7 Problem Gastro-esophageal reflux disease without esophagitis K21.9 Active 244762723 Problem Thrush B37.0 Active 61935538 Problem Other hyperlipidemia E78.4 Active 61869730 Problem Constipation in female K59.00 Active 37695844 Problem Stress incontinence in female N39.3 Active 60 122606 Problem Vaginal atrophy N95.2 Active 638244336 Problem Other chronic pain G89.29 Active 21806868 Problem Anxiety F41.9 Active 50201461 Problem Mixed hyperlipidemia E78.2 Active 705323456 Problem Allergic rhinitis due to fungal spores, unspecif ied seasonality J30.89 Active 63759196 Problem SHEILA positive R76.8 Active 691562827 Problem Acquired absence of both cervix and uterus Z90.710 Active 468964991 Problem Essential hypertension I10 Active 5135984 Problem Internal hemorrhoids K64.8 Active 37208113 Problem 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, 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 Active 880 1005 Problem Chondromalacia of patella, 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 Active 49057211 ALLERGIES Allergen (clinical drug ingredient) Drug/Non Drug Allergy do cumented on EMR Reaction Allergy Type Onset Date Status Penicillin (For Allergies Use Only) Hives Drug Allerg y Active bees Anaphylaxis Non Drug Allergy Active pravachol body aches Non Drug Allergy Active sulfa hives Non Drug Allergy Active Parafon Forte DSC RASH Drug Allergy Activ e ENCOUNTERS from 1964 to 2020-03-29 Encounter Location Date Provider Diagnosis [facility] [address] [place] [address] Feb Vic [place] Dysuria R30.0 ; Urinary tract infection, site not specified N39.0 and Hematuria, unspecified R31.9 IMMUNIZATIONS Vaccine Route Administration Date Status Influenza [...] Notes Total Score: 0 Interpretation: Alcohol Education Nondenominational: Question Answer Notes Nondenominational No presybeterian beliefs that would impact health care. Sexual [...] REASON FOR REFERRAL No Information VITAL SIGNS Weight 141 lbs Feb, Height 63 in Feb, BMI 24.97 kg/m2 Feb, Heart Rate 94 /min Feb, Respiratory Rate 18 /min Feb, Temperature 98.4 degrees Fahrenheit Feb, Oximetry 100 Feb, Blood pressure systolic 137 mm Hg Feb, Blood pressure diastolic 79 mm Hg Feb, MEDICATIONS Medication SIG (Take, Route, Frequency, Duration) [...] gm Vaginal twice a week at HS Aug, Not-Taking Vitamin D 1000 UNIT 2 tablet [...] directed Aug, Active PROCEDURES No Information RESULTS Component Value Reference Range Urinalysis, no micro Reviewed date:03/15/2020 10:51:31 Interpretation: Performing Lab:[facility] [place], [place] [address] Spec gravity 1.015 1.002 - 1.035 pH 5 5.0 - 9.0 Leukocyte trace Negative - Nitrate negative Negative - Protein negative Negative - mg/dl Glucose negative Negative - mg/dl Ketones negative Negative - mg/dl Urobili negative Normal - mg/dl Bilirubin negative Negative - Blood 50 Negative - Internal QC Acceptable (Y/N) yes URINE CULTURE Reviewed date:03/29/2020 09:46:12 Interpretation:no growth Performing Lab:[facility] [place], [facility] [id number] , ,[place] [address] REASON FOR VISIT uti sx MEDICAL (GENERAL) [...] No Information FUNCTIONAL STATUS No Information ASSESSMENTS Encounter Date Diagnosis Assessment Notes Treatment Notes Treatm ent Clinical Notes Feb, Dysuria (ICD-10 - R30.0) Feb, Urinary tract infection, site not specified (ICD -10 - N39.0) Based on your symptoms and the findings of the urinalysis that was done while here at urgent care, you most likely have a urinary tract infection. This is caused by bacteria getting into the urinary tract system, which is usually a sterile system. Please take the antibiotic as directed at this time until the antibiotic course has been completed unless you are directed to do otherwise by a healthcare provider. There is a chance that the antibiotic will not help with this type of infection if the bacteria is resistant to the antibiotic. We will send your urine off for culture to find out what kind of bacteria is causing the infection what will work best to treat it. If a change in antibiotic is required we will contact you in 2-3 days once we have the culture report and let you know. If symptoms persist or are worsening over the next 2-3 days, please contact us to find out the results of the urine culture. Rest and drink clear fluids throughout the day. Feb, Hematuria, unspecified (ICD-10 - R31.9) Feb, Other Medication/s di scussed with patient and questions answered. RTC as needed for worsening or unresolved symptoms. Patient states understanding and agreement with this plan. PLAN OF TREATMENT Medication Medication Name Sig Start Date Stop Date Cipro 500 MG 1 tablet Orally every 12 hrs for 7 days Feb, Diflucan 150 MG 1 tablet Orally Daily, repeat once in 3 days for 2 days Feb, Treatment Notes Assessment Notes Clinical Notes Urinary tract infection, site not specified Based on y our symptoms and the findings of the urinalysis that was done while here at urgent care, you most likely have a urinary tract infection. This is caused by bacteria getting into the urinary tract system, which is usually a sterile system. Please take the antibiotic as directed at this time until the antibiotic course has been completed unless you are directed to do otherwise by a healthcare provider. There is a chance that the antibiotic will not help with this type of infection if the bacteria is resistant to the antibiotic. We will send your urine off for culture to find out what kind of bacteria is causing the infection what will work best to treat it. If a change in antibiotic is required we will contact you in 2-3 days once we have the culture report and let you know. If symptoms per sist or are worsening over the next 2-3 days, please contact us to find out the results of the urine culture. Rest and drink clear fluids throughout the day. Next Appt Details 2-3 days unless improving Reason: Provider Name:Jovany Leal, 2020-06-22 01 :00:00 PM, [address] [place] [address], [phone], Provider Name:Mahogany Leonardo, 2020-09-08 01:00:00 PM, [address] [place], [phone], Insurance Providers Payer Name Payer Address Payer Phone Insured Name Patient Relati onship to Insured Coverage Start Date Coverage End Date [facility] [address] [facility] [phone] ELHAM VERAS
--- OUTSIDE RECORDS SUMMARY | 2020-05-05 16:15 | CCD ---
Author Author [facility] Organization [facility] Address Unknown Phone Unavailable Care Team Providers Care Battery Inspector Name Role Phone Mahogany Patterson Unavailable PROBLEMS Type Condition ICD9-CM Code LSY39-DQ Code Onset Dates Condition S tatus SNOMED Code Notes Problem Moderate persistent asthma with acute exacerbation J45.41 Active 744620936351899 Problem Tremor R25.1 Active 41759419 Problem Sinusitis chronic, frontal J32.1 Active 76045 002 Problem Anxiety F41.9 Active 85962308 Problem Vertigo R42 Active 724802154 Problem Allergic rhinitis due to fungal spores, unspecif ied seasonality J30.89 Active 93336537 Problem Allergic rhinitis due to pollen, unspecified seasonality J30.1 Active 96922557 Problem Stress incontinence in female N39.3 Active 60 888870 Problem Dry eye syndrome, unspecified laterality H04.129 Active 07791144 Problem Dyspareunia in female N94.10 Active 95461985 Problem Perimenopausal vasomotor symptoms N95.1 Active 435623653 Problem Dysphagia, unspecified type R13.10 Active 4073 9000 Problem Sinusitis, unspecified chronicity, unspecified location J32.9 Active 89737136 Problem Vasomotor symptoms due to menopause N95.1 Acti ve 497044552 Problem 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 Active 65181700 Problem Fat pad E65 Active 877893018 Problem Unspecified asthma, uncomplicated J45.909 Active 10191335 Problem Moderate persistent asthma without complication J4 5.40 Active 453469697 Problem Gastro-esophageal reflux disease without esophagitis K21.9 Active 632444154 Problem Thrush B37.0 Active 00764554 Problem Hypothyroidism, unspecified E03.9 Active 4093 0008 Problem Elevated fasting glucose R73.01 Active 2616125 7 Problem Vitamin D deficiency, unspecified E55.9 Active 97024318 Problem Midline cystocele N81.11 Active 101710847 Problem Other hyperlipidemia E78.4 Active 09940543 Problem Constipation in female K59.00 Active 29968876 Problem Restless legs syndrome G25.81 Active 91728794 Problem Vaginal atrophy N95.2 Active 731215861 Problem Acquired absence of both cervix and uterus Z90.710 Active 453824365 Problem Essential hypertension I10 Active 9086255 Problem Rectocele N81.6 Active 0518556 Problem Lymphadenopathy of head and neck region R59.0 Active 490889472 Problem Urethrocele N81.0 Active 08639543 Problem SHEILA positive R76.8 Active 631166611 Problem Abdominal pain, right lower quadrant R10.31 Act angela 852592799 Problem Sjogren''s syndrome, with unspecified organ involvement M35.00 Active 60111777 Problem Internal hemorrhoids K64.8 Active 37910125 Problem 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, 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 Active 880 1005 Problem Chondromalacia of patella, 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 Active 71537979 Problem Impaired fasting glucose R73.01 Active 0358567 07 Problem Mixed hyperlipidemia E78.2 Active 079573074 Problem Other chronic pain G89.29 Active 93677696 ALLERGIES Allergen (clinical drug ingredient) Drug/Non Drug Allergy do cumented on EMR Reaction Allergy Type Onset Date Status Penicillin (For Allergies Use Only) Hives Drug Allerg y Active bees Anaphylaxis Non Drug Allergy Active pravachol body aches Non Drug Allergy Active sulfa hives Non Drug Allergy Active Parafon Forte DSC RASH Drug Allergy Activ e ENCOUNTERS from 1964 to 2020-04-13 Encounter Location Date Provider Diagnosis [facility] [address] [place] [id number] Mar, Mahogany Patterson Urinary frequency R3 5.0 ; Midline cystocele N81.11 ; Rectocele N81.6 ; Urethrocele N81.0 and Vaginal atrophy N95.2 IMMUNIZATIONS Vaccine Route Administration Date Status Influenza [...] Notes Total Score: 0 Interpretation: Alcohol Education Hindu: Question Answer Notes Hindu No druze beliefs that would impact health care. Sexual [...] FOR REFERRAL No Information VITAL SIGNS Weight 144 lbs Mar, Weight-kg 65.32 kg Mar, Height 63 in Mar, BMI 25.51 kg/m2 Mar, Blood pressure systolic 124 mm Hg Mar, Blood pressure diastolic 77 mm Hg Mar, MEDICATIONS Medication SIG (Take, Route, Frequency, Duration) Notes Start Da te End Date Status Multivitamins 1 TAB Orally DAILY Act angela Singulair 10 mg 1 tab Orally Once a day Active OneTouch Verio - as directed In Vitro Daily Aug, Active Xopenex HFA 45 MCG/ACT 4 puffs as needed Inhalation every 4 hrs Active Synthroid 50 MCG 1 tab orally alternating with 75mcg every other day Active Vitamin C 1 TAB Orally DAILY/takes during the winter Active Iron 90 (18 Fe) MG 1 tablet Orally Once a day Active Albuterol Sulfate (2.5 MG/3ML) 0.083% 3 ml as needed I nhalation Three times a day Active Benzonatate 200 MG 1 capsule Orally three times daily as needed Active Ciprofloxacin HCl 250 MG 1 tablet Orally every 12 hrs for 3 day( s) Feb, Not-Taking Flonase Sensimist 27.5 MCG/SPRAY 1 puff in each nostril Nasally Onc e a day Active Olopatadine HCl 0.1 % 1 drop into affected eye Ophthalmic Twice a day Active Cipro 500 MG 1 tablet Orally every 12 hrs for 7 days 2019 Not-Taking Levothyroxine Sodium 75 MCG TAKE ONE TABLET BY MOUTH E VERY OTHER DAY ALTERNATING WITH 50MCG orally Daily Active Hydroxychloroquine Sulfate 200 MG 1 tab Orally bid Active One Touch Delica 33 gauge as directed Aug, Active Pantoprazole Sodium 40 MG 1 tablet Orally Once a day Active Flovent HFA 220 MCG/ACT 2 puff Inhalation Twice a day Active Premarin 0.625 MG/GM 1/2 gm Vaginal twice a week at HS Aug, Not-Taking OneTouch Verio w/Device as directed Aug, Active Diflucan 150 MG 1 tablet Orally Daily, repeat once in 3 days for 2 days Feb, Not-Taking Fluconazole 150 MG 1 tablet Orally one now, repeat in 3 days Feb, Not-Taking Vitamin D 1000 UNIT 2 tablet Orally bid Active Claritin 10 MG 1 tablet Orally Once a day Active Restasis 0.05 % 1 into affected eye Ophthalmic qd Active Metformin HCl 500 MG 1 tabs with meals, bid orally bid for 90 d ay(s) Apr, Active PROCEDURES No Information RESULTS No Results REASON FOR VISIT UTI PER FIRE DEPARTMENT BATTALION CHIEF NURSE 04/02/20 MEDICAL (GENERAL) HISTORY Type Description Date Medical [...] Notes Treatment Notes Treatm ent Clinical Notes Mar, Urinary frequency (ICD-10 - R35.0) Mar, Midline cystocele (ICD-10 - N81.11) Taught and encouraged kegles TID and if no improvement after 2-3 months of kelges and vaginal estrogen she may try a pessary Mar, Rectocele (ICD-10 - N81.6) Mar, Urethrocele (ICD-10 - N81.0) Mar, Vaginal atrophy (ICD-10 - N95.2) Discussed imprtance of the vaginal estrogen,which she never used . Advised twice a week for symptoms and prevention UTI PLAN OF TREATMENT Treatment Notes Assessment Notes Clinical Notes Midline cystocele Taught and encourage d kegles TID and if no improvement after 2-3 months of kelges and vaginal estrogen she may try a pessary Vaginal atrophy Discussed imprtance of the vaginal estrogen,which she never used . Advised twice a week for symptoms and prevention UTI Next Appt Details annual or sooner prn Reason: Provider Name:Jovany Leal, 2020-06-22 01 :00:00 PM, [address] [place] [address], [phone], Provider Name:Mahogany Leonardo, 2020-09-08 01:00:00 PM, [address] [place], [phone], Insurance Providers Payer Name Payer Address Payer Phone Insured Name Patient Relati onship to Insured Coverage Start Date Coverage End Date [facility] [id number] [facility] [id number] ELHAM VERAS
--- OUTSIDE RECORDS SUMMARY | 2020-05-05 16:15 | CCD ---
Author Author [facility] Organization [facility] Address Unknown Phone Unavailable Care Team Providers Care Poultry Picking Machine Tender Name Role Phone Jovany Leal Unavailable PROBLEMS Type Condition ICD9-CM Code UUQ27-XM Code Onset Dates Condition S tatus SNOMED Code Notes Problem Sinusitis, unspecified chronicity, unspecified location J32.9 Active 28785687 Problem Moderate persistent asthma with acute exacerbation J45.41 Active 772599749047383 Problem Dysphagia, unspecified type R13.10 Active 4073 9000 Problem Tremor R25.1 Active 34975193 Problem Sinusitis chronic, frontal J32.1 Active 39185 002 Problem Allergic rhinitis due to pollen, unspecified seasonality J30.1 Active 80005367 Problem Vertigo R42 Active 674543403 Problem Dyspareunia in female N94.10 Active 77116604 Problem Impaired fasting glucose R73.01 Active 4285598 07 Problem Midline cystocele N81.11 Active 575641998 Problem Unspecified asthma, uncomplicated J45.909 Active 51359277 Problem Dry eye syndrome, unspecified laterality H04.129 Active 58600100 Problem Perimenopausal vasomotor symptoms N95.1 Active 896403863 Problem Sjogren''s syndrome, with unspecified organ involvement M35.00 Active 86020189 Problem Lymphadenopathy of head and neck region R59.0 Active 278015239 Problem Vasomotor symptoms due to menopause N95.1 Acti ve 021305311 Problem Vitamin D deficiency, unspecified E55.9 Active 94679920 Problem 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 Active 46036832 Problem Abdominal pain, right lower quadrant R10.31 Act angela 507856616 Problem Fat pad E65 Active 562461506 Problem Restless legs syndrome G25.81 Active 07724205 Problem Moderate persistent asthma without complication J4 5.40 Active 884740821 Problem Hypothyroidism, unspecified E03.9 Active 4093 0008 Problem Elevated fasting glucose R73.01 Active 6107367 7 Problem Gastro-esophageal reflux disease without esophagitis K21.9 Active 253898987 Problem Thrush B37.0 Active 83884826 Problem Other hyperlipidemia E78.4 Active 95400420 Problem Constipation in female K59.00 Active 86397490 Problem Stress incontinence in female N39.3 Active 60 574221 Problem Vaginal atrophy N95.2 Active 937231045 Problem Other chronic pain G89.29 Active 75686224 Problem Anxiety F41.9 Active 62365663 Problem Mixed hyperlipidemia E78.2 Active 990416938 Problem Allergic rhinitis due to fungal spores, unspecif ied seasonality J30.89 Active 19059020 Problem SHEILA positive R76.8 Active 637603963 Problem Acquired absence of both cervix and uterus Z90.710 Active 011934978 Problem Essential hypertension I10 Active 5324038 Problem Internal hemorrhoids K64.8 Active 23937591 Problem 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, 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 Active 880 1005 Problem Chondromalacia of patella, 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 Active 97270208 ALLERGIES Allergen (clinical drug ingredient) Drug/Non Drug Allergy do cumented on EMR Reaction Allergy Type Onset Date Status Penicillin (For Allergies Use Only) Hives Drug Allerg y Active bees Anaphylaxis Non Drug Allergy Active pravachol body aches Non Drug Allergy Active sulfa hives Non Drug Allergy Active Parafon Forte DSC RASH Drug Allergy Activ e ENCOUNTERS from 1965 to 2020-03-06 Encounter Location Date Provider Diagnosis [facility] [address] [place] [address] 08 Feb, 2020 Jovany Leal Allergic conjunctivitis of both eyes H10.13 ; 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 Sexual [...] No Information VITAL SIGNS Weight 144 lbs Feb, Height 63 in Feb, BMI 25.51 kg/m2 Feb, Heart Rate 107 /min Feb, Respiratory Rate 18 /min Feb, Temperature 98 degrees Fahrenheit Feb, Oximetry 100RA Feb, Blood pressure systolic 170 mm Hg Feb, Blood pressure diastolic 90 mm Hg Feb, MEDICATIONS Medication SIG (Take, Route, Frequency, Duration) Notes Start Da te End Date Status Fluconazole 150 MG 1 tablet Orally one now, repeat in 3 days Feb, Active Hydroxychloroquine Sulfate 200 MG 1 tab Orally bid Active Xopenex HFA 45 MCG/ACT 4 puffs as needed Inhalation every 4 hrs Active Metformin HCl 500 MG 1 tabs with meals, bid orally bid for 90 d ay(s) Apr, Active Iron 90 (18 Fe) MG 1 tablet Orally Once a day Active One Touch Delica 33 gauge as directed Aug, Active Multivitamins 1 TAB Orally DAILY Act angela Singulair 10 mg 1 tab Orally Once a day Active Pantoprazole Sodium 40 MG 1 tablet Orally Once a day Active Synthroid 50 MCG 1 tab orally alternating with 75mcg every other day Active Claritin 10 MG 1 tablet Orally Once a day Active Flonase Sensimist 27.5 MCG/SPRAY 1 puff in each nostril Nasally Onc e a day Active Vitamin C 1 TAB Orally DAILY/takes during the winter Active Premarin 0.625 MG/GM 1/2 gm Vaginal twice a week at HS Aug, Not-Taking Benzonatate 200 MG 1 capsule Orally three times daily as needed Active Flovent HFA 220 MCG/ACT 2 puff Inhalation Twice a day Active Albuterol Sulfate (2.5 MG/3ML) 0.083% 3 ml as needed I nhalation Three times a day Active OneTouch Verio - as directed In Vitro Daily Aug, Active Vitamin D 1000 UNIT 2 tablet Orally bid Active Olopatadine HCl 0.1 % 1 drop into affected eye Ophthalmic Twice a day Active Restasis 0.05 % 1 into affected eye Ophthalmic qd Active Levothyroxine Sodium 75 MCG TAKE ONE TABLET BY MOUTH E VERY OTHER DAY ALTERNATING WITH 50MCG orally Daily Active OneTouch Verio w/Device as directed Aug, Active Ciprofloxacin HCl 250 MG 1 tablet Orally every 12 hrs for 3 day( s) Feb, Active PROCEDURES No Information RESULTS Component Value Reference Range Urinalysis, no micro Reviewed date:03/02/2020 14:02:37 Interpretation: Performing Lab:[facility] [place], [place] [address] Spec gravity 1.020 1.002 - 1.035 pH 5 5.0 - 9.0 Leukocyte positive Negative - Nitrate neg Negative - Protein trace Negative - mg/dl Glucose neg Negative - mg/dl Ketones neg Negative - mg/dl Urobili normal Normal - mg/dl Bilirubin neg Negative - Blood 50 Negative - Internal QC Acceptable (Y/N) yes BEDSIDE GLUCOSE Reviewed date:03/02/2020 13:57:02 Interpretation: Performing Lab:[facility], ,[facility]01 BEDSIDE GLUCOSE 114 URINE CULTURE Reviewed date:03/05/2020 13:09:47 Interpretation: Performing Lab:[facility], [facility] [address] [address] , [place] [address] REASON FOR VISIT follow up MEDICAL (GENERAL) HISTORY Type Description Date Medical [...] Treatment Notes Treatm ent Clinical Notes Feb, Allergic conjunctivitis of both eyes (ICD-10 - H 10.13) Feb, 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 Feb, Dysuria (ICD-10 - R30.0) Feb, Mixed hyperlipidemia (ICD-10 - E78.2) Feb, Sjogren''s syndrome, with un specified organ involvement (ICD-10 - M35.00) Feb, Immunization not carried out because of patient refusal (ICD-10 - Z28.21) Feb, Moderate persistent asthma without compl ication (ICD-10 - J45.40) Feb, Hypothyroidism, unspecified (ICD-10 - E03.9) Feb, Low back pain (ICD-10 - M54.5) Feb, Other chronic pain (ICD-10 - G89.29) Feb, Other monitor bp at me call if you find pressures are persistently above 140/90. PLAN OF TREATMENT Medication Medication Name Sig Start Date Stop Date Flonase Sensimist 27.5 MCG/SPRAY 1 puff in each nostril Nasally Once a day Levothyroxine Sodium 75 MCG TAKE ONE TABLET BY MOUTH E VERY OTHER DAY ALTERNATING WITH 50MCG orally Daily Claritin 10 MG 1 tablet Orally Once a day Synthroid 50 MCG 1 tab orally alternating with 75mcg every other day Vitamin C 1 TAB Orally DAILY/takes during the winter Iron 90 (18 Fe) MG 1 tablet Orally Once a day One Touch Delica 33 gauge as directed Aug, Multivitamins 1 TAB Orally DAILY Olopatadine HCl 0.1 % 1 drop into affected eye Ophthalmic Twice a day Pantoprazole Sodium 40 MG 1 tablet Orally Once a day Benzonatate 200 MG 1 capsule Orally three times daily as needed Singulair 10 mg 1 tab Orally Once a day Albuterol Sulfate (2.5 MG/3ML) 0.083% 3 ml as needed I nhalation Three times a day OneTouch Verio - as directed In Vitro Daily Aug, OneTouch Verio w/Device as directed Aug, Vitamin D 1000 UNIT 2 tablet Orally bid Metformin HCl 500 MG 1 tabs with meals, bid orally bid for 90 day(s) Apr, Restasis 0.05 % 1 into affected eye Ophthalmic qd Ciprofloxacin HCl 250 MG 1 tablet Orally every 12 hrs for 3 day( s) Feb, Flovent HFA 220 MCG/ACT 2 puff Inhalation Twice a day Hydroxychloroquine Sulfate 200 MG 1 tab Orally bid Fluconazole 150 MG 1 tablet Orally one now, repeat in 3 days Feb, Xopenex HFA 45 MCG/ACT 4 puffs as needed Inhalation every 4 hrs Treatment Notes Assessment Notes Clinical Notes Drug or chemical induced diabetes mellit us without complication, without long- term current use of insulin new reduced metformin dose: if FBS is ab ove 120 frequently then resume 2 tabs bid. Future Test Test Name Order Date LIPID PANEL (CARDIAC RISK) 20200531 HEMOGLOBIN A1c 20200531 Basic Metabolic Profile (BMP) 20200531 AMOR SPINE LS COMPLETE 20200302 Next Appt Details 3 Months Reason: Provider Name:Jovany Leal, 2020-06-22 01 :00:00 PM, [address] [place], [address], Provider Name:Mahogany Patterson, 2020-09-08 01:00:00 PM, [address] [place], [address], Insurance Providers Payer Name Payer Address Payer Phone Insured Name Patient Relati onship to Insured Coverage Start Date Coverage End Date [facility] [id number] [facility] [id number] ELHAM VERAS
--- OUTSIDE RECORDS SUMMARY | 2020-05-05 16:16 | CCD | Continuity of Care Document ---
Author Author Lana AVILA PAEbonyC Organization Unknown Address [address] [place] [address] Phone [phone] Care Team Providers Care Upholstery Parts Sorter Name Role Phone Jovany Leal MD [facility] [phone] Problems Description No Information Available Social History [...] as Directed For 10 Days Unknown Nystatin 258438Emqa/ML Suspension Take 5ML By Mouth Four Times A Day Unknown Levocetirizine Dihydrochloride 5mg Tablets Take One Tablet By Mouth Every Day In The Evening Unknown Xerostomia Relief [place] Solution [place] 1 Dose (2 Sprays) Into The Mouth [...] Available Vital Signs Date Vital Result Comment 12/04/2019 1:30pm Body Temperature 96.0 F Height 64 inches 5'4" Weight 140.00 lb BMI (Body Mass Index) 24.0 kg/m2 10/14/2019 2:32pm Body Temperature 97.0 F Height 64 inches 5'4" Weight 143.00 lb BMI (Body Mass Index) 24.5 kg/m2 Results Test Acquired Date Facility Test Result H/L Range Note Laboratory test finding 01/24/2020 [facility] [address] [place] [address] (315)- - Coronavirus 2019 Nasopharygeal This nucleic aci <SEE NOTE> 1 1 This nucleic acid amplificat ion test was developed and its performance characteristics determined by [employer]. Nucleic acid amplification tests include PCR and [...] detected) result in this assay. Performed at: - [facility] [id number] Kiln Firer: Angie Torres MD, Phone: [phone] Not Detected Procedures Date Code Description Status 02/06/2020 Inject/Drain Joint/Bursa Major C ompleted 01/29/2020 25266 Arthroscopy Knee W/M eniscetomy Inc Chrondroplasty (Med Or Lateral Completed 01/28/2020 Inject/Drain Joint/Bursa Major C ompleted 01/21/2020 Inject/Drain Joint/Bursa Major C ompleted 01/09/2020 Inject/Drain Joint/Bursa Major C ompleted 10/22/2019 05410 MRI Lower Extremity Any Joint Co mpleted 10/14/2019 37374 X-Ray Knee Complete W/Obliques & Tunnel And/Or Standing Views Completed 10/14/2019 95504 X-Ray Spine Lumbosacral Complete Inc Bending Views Min Of 6 Completed 09/10/201975565 Inject/Drain Joint/Bursa Major C ompleted Medical Devices Description No Information Available Encounters Type Date Location Provider Dx Diagnosis Office Visit 10/14/2019 2:30p Jason Camargo MD M71.21 Synovial cyst of popliteal space [Vidales], right knee M54.16 Radiculopathy, lumbar region Office Visit 09/10/2019 9:15a Jason Quintanilla MD M23. 42 Loose body in knee, left knee Office Visit 08/29/2019 11:15a Jason Quintanilla MD M23. 42 Loose body in knee, left knee M25.362 Other instability, left knee Assessments Date Code Description Provider 02/06/2020 Z47.89 Encounter for other orthopedic a ftercare Rod Quintanilla MD 01/29/2020 M23.241 Derangement of anter ior horn of lateral meniscus due to old tear or injury, right knee Rod Quintanilla MD 01/29/2020 M22.41 Chondromalacia patellae, right k keme Rod Quintanilla MD 01/28/2020 M17.12 Unilateral primary osteoarthriti s, left knee JUDITH ResendizC 01/21/2020 M23.241 Derangement of anter ior horn of lateral meniscus due to old tear or injury, right knee Rod Quintanilla MD 01/21/2020 M17.12 Unilateral primary osteoarthriti s, left knee JUDITH ResendizC 01/09/2020 M17.12 Unilateral primary osteoarthriti s, left [...] Camargo MD 10/14/2019 M54.16 Radiculopathy, lumbar region Adrianne Camargo MD 09/10/2019 M23.42 Loose body in knee, left knee An floridalma Quintanilla MD 09/10/2019 M23.42 Loose body in knee, left knee An floridalma García Markwith, MD 08/29/2019 M23.42 Loose body in knee, left knee An floridalma Quintanilla MD 08/29/2019 M25.362 Other instability, left knee And abbi Quintanilla MD Plan of Treatment Future Appointment(s):* 02/26/2020 1:45 pm - Rod Quintanilla MD at [place] 02/06/2020 - Rod Quintanilla MD* Z47.89 Encounter for other orthopedic aftercare* Follow up:* 3 weeks with anm for lt knee re-check Functional Status Description No Information Available Mental Status Description No Information Available Referrals Refer to Dr Reason for Referral Status Appt Date Rod Quintanilla MD SURGERY PER [facility] N O AUTH REQUIRED FOR RT KNEE SURGERY ([id number] [place] [id number]) TO SURGERY NT Created [address] [place] [address] [phone] Rod Quintanilla MD E0114 Crutches Allum Push [place], [place] no authorization required Created [address] [place] [address] [phone] Rod Quintanilla MD EUFLEXXA INJ'S NO AUTH REQUIRED TO SC HEDULING NT Created [facility] [place] [address] [phone] Rod Quintanilla MD MRI RT KNEE NO AUTH REQUIRED , PASSING TO XRAY TRACKER. LM Created [facility] [place] [address] [phone] Rod Quintanilla MD DME PER [facility] AT [facility] NO AUTH REQUIRED FOR FREE RUNNER KNEE BRACE([id number]) AND COVERED AT 100% TO NEFTALI NT CALL REF #[id number] Created [facility] [place] [address] [phone]
--- OUTSIDE RECORDS SUMMARY | 2020-05-05 16:16 | CCD | Continuity of Care Document ---
Author Author Lana QUINTANILLA MD Organization Unknown Address [address] [address] Phone [phone] Care Team Providers Care Skills Instructor Name Role Phone Jovany Leal MD [facility] [phone] Problems Description No Information Available Social History [...] as Directed For 10 Days Unknown Nystatin 787231Lfec/ML Suspension Take 5ML By Mouth Four Times A Day Unknown Levocetirizine Dihydrochloride 5mg Tablets Take One Tablet By Mouth Every Day In The Evening Unknown Xerostomia Relief [place] Solution [place] 1 Dose (2 Sprays) Into The Mouth [...] H/L Range Note Laboratory test finding 01/24/2020 [facility] [address] [place] [address] (315)- - Coronavirus 2019 Nasopharygeal This nucleic aci <SEE NOTE> 1 1 This nucleic acid amplificat ion test was developed and its performance characteristics determined by [employer]. Nucleic acid amplification tests include PCR and [...] result in this assay. Performed at: - [facility] [id number] Customs Port Director: Angie Torres MD, Phone: [phone] Not Detected Procedures Date Code Description Status 02/06/2020 Inject/Drain Joint/Bursa Major C ompleted 01/29/2020 42577 Arthroscopy Knee W/M eniscetomy Inc Chrondroplasty (Med Or Lateral Completed 01/28/2020 Inject/Drain Joint/Bursa Major C ompleted 01/21/2020 Inject/Drain Joint/Bursa Major C ompleted 01/09/2020 Inject/Drain Joint/Bursa Major C ompleted 10/22/2019 81881 MRI Lower Extremity Any Joint Co mpleted 10/14/2019 61102 X-Ray Knee Complete W/Obliques & Tunnel And/Or Standing Views Completed 10/14/2019 00446 X-Ray Spine Lumbosacral Complete Inc Bending Views Min Of 6 Completed 09/10/201910187 Inject/Drain Joint/Bursa Major C ompleted Medical Devices Description No Information Available Encounters Type Date Location Provider Dx Diagnosis Office Visit 10/14/2019 2:30p Jason Camargo MD M71.21 Synovial cyst of popliteal space [Vidales], right knee M54.16 Radiculopathy, lumbar region Office Visit 09/10/2019 9:15a Jason Quintanilla MD M23. 42 Loose body in knee, left knee Assessments Date Code Description Provider 02/26/2020 Z47.89 Encounter for other orthopedic a [...] M23.42 Loose body in knee, left knee Mila Quintanilla MD 09/10/2019 M23.42 Loose body in knee, left knee Mila Quintanilla MD Plan of Treatment Future Appointment(s):* 04/01/2020 1:00 pm - Rod Quintanilla MD at [place] 02/26/2020 - Rod Quintanilla MD* Z47.89 Encounter for other orthopedic aftercare* Follow up:* one month rt knee michaela with ANM * M17.12 Unilateral primary osteoarthritis, left knee Functional Status Description No Information Available Mental Status Description No Information Available Referrals Refer to Dr Reason for Referral Status Appt Date Rod Quintanilla MD SURGERY PER [facility] N O AUTH REQUIRED FOR RT KNEE SURGERY ([id number] [place] [id number]) TO SURGERY NT Created [address] [place] [address] [phone] Rod Quintanilla MD E0114 Crutches Allum Push [place], [place] no authorization required Created [address] [place] [address] [phone] Rod Quintanilla MD EUFLEXXA INJ'S NO AUTH REQUIRED TO SC HEDULING NT Created [address] [place] [address] [phone] Rod Quintanilla MD MRI RT KNEE NO AUTH REQUIRED , PASSING TO XRAY TRACKER. LM [place] [address] [phone] Rod Quintanilla MD DME PER [facility] AT [facility] NO AUTH REQUIRED FOR FREE RUNNER KNEE BRACE([id number]) AND COVERED AT 100% TO NEFTALI NT CALL REF #[id number] [place] [address] [phone]
--- OUTSIDE RECORDS SUMMARY | 2020-05-05 16:16 | CCD | Continuity of Care Document ---
Author Author Lana QUINTANILLA MD Organization Unknown Address [address] [place] [address] Phone [phone] Care Team Providers Care Healthcare Administration Internship Name Role Phone Jovany Leal MD [facility] [phone] Problems Description No Information Available Social History [...] as Directed For 10 Days Unknown Nystatin 638279Bpgg/ML Suspension Take 5ML By Mouth Four Times A Day Unknown Levocetirizine Dihydrochloride 5mg Tablets Take One Tablet By Mouth Every Day In The Evening Unknown Xerostomia Relief Troup Solution Troup 1 Dose (2 Sprays) Into The Mouth [...] H/L Range Note Laboratory test finding 01/24/2020 [facility] [address] [place] [address] (315)- - Coronavirus 2019 Nasopharygeal This nucleic aci <SEE NOTE> 1 1 This nucleic acid amplificat ion test was developed and its performance characteristics determined by [employer]. Nucleic acid amplification tests include PCR and [...] result in this assay. Performed at: - [facility] [address] [id number] Electrical Controls Assembler: Angie Torres MD, Phone: [phone] Not Detected Procedures Date Code Description Status 01/29/2020 22177 Arthroscopy Knee W/M eniscetomy Inc Chrondroplasty (Med Or Lateral Completed 01/28/202095690 Inject/Drain Joint/Bursa Major C ompleted 01/21/202029917 Inject/Drain Joint/Bursa Major C ompleted 01/09/2020 Inject/Drain Joint/Bursa Major C ompleted 10/22/2019 00144 MRI Lower Extremity Any Joint Co mpleted 10/14/2019 25695 X-Ray Knee Complete W/Obliques & Tunnel And/Or Standing Views Completed 10/14/2019 16842 X-Ray Spine Lumbosacral Complete Inc Bending Views Min Of 6 Completed 09/10/201949159 Inject/Drain Joint/Bursa Major C ompleted Medical Devices [...] left knee M25.362 Other instability, left knee Office Visit 08/07/2019 10:00a Jason Quintanilla MD M17. 12 Unilateral primary osteoarthritis, left knee M23.42 Loose body in knee, left kne e M25.362 Other instability, left knee Assessments Date [...] Radiculopathy, lumbar region Bru josé Camargo MD 09/10/2019 M23.42 Loose body in knee, left knee Mila Quintanilla MD 09/10/2019 M23.42 Loose body in knee, left knee Mila Quintanilla MD 08/29/2019 M23.42 Loose body in knee, left knee Mila Quintanilla MD 08/29/2019 M25.362 Other instability, left knee And abbi Quintanilla MD 08/07/2019 M17.12 Unilateral primary osteoarthriti s, left knee Rod Quintanilla MD 08/07/2019 M23.42 Loose body in knee, left knee Mila Quintanilla MD 08/07/2019 M25.362 Other instability, left knee And abbi Quintanilla MD Plan of Treatment Future Appointment(s):* 02/26/2020 1:00 pm - Rod Quintanilla MD at [place] 02/06/2020 - Rod Quintanilla MD* Z47.89 Encounter for other orthopedic aftercare* Follow up:* 3 weeks with anm for lt knee re-check Functional Status Description No Information Available Mental Status Description No Information Available Referrals Refer to Dr Reason for Referral Status Appt Date Rod Quintanilla MD SURGERY PER [facility] N O AUTH REQUIRED FOR RT KNEE SURGERY ([id number] [place] [id number]) TO SURGERY NT Created [facility] [place] [address] [phone] Rod Quintanilla MD E0114 Crutches Allum Push [place], [place] no authorization required Created [facility] [place] [address] [phone] Rod Quintanilla MD EUFLEXXA INJ'S NO AUTH REQUIRED TO SC HEDULING NT Created [facility] [place] [address] [phone] Rod Quintanilla MD MRI RT KNEE NO AUTH REQUIRED , PASSING TO XRAY TRACKER. LM Created [facility] [place] [address] [phone] Rod Quintanilla MD DME PER [facility] AT [facility] NO AUTH REQUIRED FOR FREE RUNNER KNEE BRACE([id number]) AND COVERED AT 100% TO NEFTALI LOVE CALL REF #[id number] Created [address] [facility] [address] [place] [address] [phone]
--- OUTSIDE RECORDS SUMMARY | 2020-05-05 16:16 | CCD | Continuity of Care Document ---
Author Author Lana QUINTANILLA MD Organization Unknown Address [address] [place] [address] Phone [phone] Care Team Providers Care Fish Processing Supervisor Name Role Phone Jovany Leal MD [facility] [phone] Problems Description No Information Available Social History [...] as Directed For 10 Days Unknown Nystatin 295178Awwl/ML Suspension Take 5ML By Mouth Four Times A Day Unknown Levocetirizine Dihydrochloride 5mg Tablets Take One Tablet By Mouth Every Day In The Evening Unknown Xerostomia Relief Rigby Solution Rigby 1 Dose (2 Sprays) Into The Mouth [...] H/L Range Note Laboratory test finding 01/24/2020 [facility] [address] [place] [address] [phone] Coronavirus 2019 Nasopharygeal This nucleic aci <SEE NOTE> 1 1 This nucleic acid amplificat ion test was developed and its performance characteristics determined by [facility]. Nucleic acid amplification tests include PCR and [...] result in this assay. Performed at: - [facility] [id number] Inside Meter Tester: Angie Torres MD, Phone: [phone] Not Detected Procedures Date Code Description Status 02/06/2020 Inject/Drain Joint/Bursa Major C ompleted 01/29/2020 25819 Arthroscopy Knee W/M eniscetomy Inc Chrondroplasty (Med Or Lateral Completed 01/28/2020 Inject/Drain Joint/Bursa Major C ompleted 01/21/2020 Inject/Drain Joint/Bursa Major C ompleted 01/09/2020 Inject/Drain Joint/Bursa Major C ompleted 10/22/2019 70081 MRI Lower Extremity Any Joint Co mpleted 10/14/2019 69168 X-Ray Knee Complete W/Obliques & Tunnel And/Or Standing Views Completed 10/14/2019 87140 X-Ray Spine Lumbosacral Complete Inc Bending Views Min Of 6 Completed 09/10/201917514 Inject/Drain Joint/Bursa Major C ompleted Medical Devices [...] knee Assessments Date Code Description Provider 02/06/2020 M25.461 Effusion, right knee Rod azevedo [...] left knee An floridalma Quintanilla MD 08/29/2019 M23.42 Loose body in knee, left knee An floridalma Quintanilla MD 08/29/2019 M25.362 Other instability, left knee And rew Raquel Quintanilla MD Plan of Treatment Future Appointment(s):* 02/26/2020 1:45 pm - Rod Quintanilla MD at Nursery 02/06/2020 - Rod Quintanilla MD* M25.461 Effusion, right knee * Z47.89 Encounter for other orthopedic aftercare* Follow up:* 3 weeks with ANM for lt knee re-check Functional Status Description No Information Available Mental Status Description No Information Available Referrals Refer to Reason for Referral Status Appt Date Rod Quintanilla MD SURGERY PER KARLA AT [facility] N O AUTH REQUIRED FOR RT KNEE SURGERY ([id number]) TO SURGERY NT Created [facility] [place] [address] [phone] Rod Quintanilla MD [id number] Crutches Allum Push [place], [place] no authorization required Created [facility] [place] [address] [phone] Rod Quintanilla MD EUFLEXXA INJ'S NO AUTH REQUIRED TO SC HEDULING NT Created [facility] [place] [address] [phone] Rod Quintanilla MD MRI RT KNEE NO AUTH REQUIRED , PASSING TO XRAY TRACKER. LM Created [address] [place] [address] [phone] Rod Quintanilla MD DME PER PRIYANK AT [facility] NO AUTH REQUIRED FOR FREE RUNNER KNEE BRACE([id number]) AND COVERED AT 100% TO NEFTALI NT CALL REF #[id number] Created [facility] [place] [address] [phone]
--- OUTSIDE RECORDS SUMMARY | 2020-05-05 16:16 | CCD ---
Author Author [facility] Organization [facility] Address Unknown Phone Unavailable Care Team Providers Care Bow String Maker Name Role Phone Jovany Leal Unavailable PROBLEMS Type Condition ICD9-CM Code DDZ24-XH Code Onset Dates Condition S tatus SNOMED Code Notes Problem Sinusitis, unspecified chronicity, unspecified location J32.9 Active 84510362 Problem Moderate persistent asthma with acute exacerbation J45.41 Active 852673704005713 Problem Dysphagia, unspecified type R13.10 Active 4073 9000 Problem Tremor R25.1 Active 79555152 Problem Sinusitis chronic, frontal J32.1 Active 61878 002 Problem Allergic rhinitis due to pollen, unspecified seasonality J30.1 Active 66573051 Problem Vertigo R42 Active 567560865 Problem Dyspareunia in female N94.10 Active 20938644 Problem Impaired fasting glucose R73.01 Active 7642291 07 Problem Midline cystocele N81.11 Active 911382675 Problem Unspecified asthma, uncomplicated J45.909 Active 26343491 Problem Dry eye syndrome, unspecified laterality H04.129 Active 44563928 Problem Perimenopausal vasomotor symptoms N95.1 Active 486621547 Problem Sjogren''s syndrome, with unspecified organ involvement M35.00 Active 12234403 Problem Lymphadenopathy of head and neck region R59.0 Active 579639814 Problem Vasomotor symptoms due to menopause N95.1 Acti ve 288354733 Problem Vitamin D deficiency, unspecified E55.9 Active 52777858 Problem 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 Active 18285445 Problem Abdominal pain, right lower quadrant R10.31 Act angela 947224634 Problem Fat pad E65 Active 371913178 Problem Restless legs syndrome G25.81 Active 92605418 Problem Moderate persistent asthma without complication J4 5.40 Active 851472153 Problem Hypothyroidism, unspecified E03.9 Active 4093 0008 Problem Elevated fasting glucose R73.01 Active 5136788 7 Problem Gastro-esophageal reflux disease without esophagitis K21.9 Active 331498136 Problem Thrush B37.0 Active 66363628 Problem Other hyperlipidemia E78.4 Active 52771739 Problem Constipation in female K59.00 Active 70832106 Problem Stress incontinence in female N39.3 Active 60 722113 Problem Vaginal atrophy N95.2 Active 962680702 Problem Other chronic pain G89.29 Active 06350036 Problem Anxiety F41.9 Active 39872656 Problem Mixed hyperlipidemia E78.2 Active 011390237 Problem Allergic rhinitis due to fungal spores, unspecif ied seasonality J30.89 Active 64422380 Problem SHEILA positive R76.8 Active 648791195 Problem Acquired absence of both cervix and uterus Z90.710 Active 324545512 Problem Essential hypertension I10 Active 5128136 Problem Internal hemorrhoids K64.8 Active 10444849 Problem 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 Sexual [...] s) Feb, Active PROCEDURES No Information RESULTS No Results REASON FOR VISIT uti sx ongoing/ ? thrush MEDICAL (GENERAL) HISTORY Type Description Date Medical [...] Clinical Notes Feb, Dysuria (ICD-10 - R30.0) PLAN OF TREATMENT Medication Medication Name Sig [...] puffs as needed Inhalation every 4 hrs Next Appt Details Provider Name:Jovany Leal, 2020-06-22 01 :00:00 PM, [address] [place], [address], Provider Name:Mahogany Leonardo, 2020-09-08 01:00:00 PM, [address] [place], [address], Insurance Providers Payer Name Payer Address Payer Phone Insured Name Patient Relati onship to Insured Coverage Start Date Coverage End Date [facility] [place] [address] [facility] [id number] ELHAM VERAS
--- OUTSIDE RECORDS SUMMARY | 2020-05-05 16:17 | CCD ---
Author Author [facility] Organization [facility] Address Unknown Phone Unavailable Care Team Providers Care Forming Department Supervisor Name Role Phone PETROFF, BRIGIDO PA Unavailable Unavailable PETROFF, BRIGIDO PA Unavailable Unavailable PETROFF, BRIGIDO PA Unavailable Unavailable PETROFF, BRIGIDO PA Unavailable Unavailable PETROFF, BRIGIDO PA Unavailable Unavailable PETROFF, BRIGIDO PA Unavailable Unavailable PETROFF, BRIGIDO PA Unavailable Unavailable PETROFF, BRIGIDO PA Unavailable Unavailable MORALES, JEANCARLOS DAVION RPA-C Unavailable Unavailable MORALES, JEANCARLOS DAVION RPA-C Unavailable Unavailable MORALES, JEANCARLOS DAVION RPA-C Unavailable Unavailable MORALES, JEANCARLOS DAVION RPA-C Unavailable Unavailable MORALES, JEANCARLOS DAVION RPA-C Unavailable Unavailable MORALES, JEANCARLOS DAVION RPA-C Unavailable Unavailable MORALES, JEANCARLOS DAVION RPA-C Unavailable Unavailable MORALES, JEANCARLOS DAVION RPA-C Unavailable Unavailable MORALES, JEANCARLOS DAVION RPA-C Unavailable Unavailable MORALES, JEANCARLOS DAVION RPA-C Unavailable Unavailable MORALES, JEANCARLOS DAVION RPA-C Unavailable Unavailable MORALES, JEANCARLOS DAVION RPA-C Unavailable Unavailable MORALES, JEANCARLOS DAVION RPA-C Unavailable Unavailable MORALES, JEANCARLOS DAVION RPA-C Unavailable Unavailable MORALES, JEANCARLOS DAVION RPA-C Unavailable Unavailable MORALES, JEANCARLOS DAVION RPA-C Unavailable Unavailable MORALES, JEANCARLOS DAVION RPA-C Unavailable Unavailable MORALES, JEANCARLOS DAVION RPA-C Unavailable Unavailable MORALES, JEANCARLOS DAVION RPA-C Unavailable Unavailable MORALES, JEANCARLOS DAVION RPA-C Unavailable Unavailable MORALES, JEANCARLOS DAVION RPA-C Unavailable Unavailable MORALES, JEANCARLOS DAVION RPA-C Unavailable Unavailable MORALES, JEANCARLOS DAVION RPA-C Unavailable Unavailable MORALES, JEANCARLOS DAVOIN RPA-C Unavailable Unavailable MORALES, JEANCARLOS DAVION RPA-C Unavailable Unavailable MORALES, JEANCARLOS DAVION RPA-C Unavailable Unavailable MORALES, JEANCARLOS DAVION RPA-C Unavailable Unavailable MORALES, JEANCARLOS DAVION RPA-C Unavailable Unavailable MORALES, JEANCARLOS DAVION RPA-C Unavailable Unavailable MORALES, JEANCARLOS DAVION RPA-C Unavailable Unavailable MORALES, JEANCARLOS DAVION RPA-C Unavailable Unavailable MORALES, JEANCARLOS DAVION RPA-C Unavailable Unavailable MORALES, JEANCARLOS DAVION RPA-C Unavailable Unavailable MORALES, JEANCARLOS DAVION RPA-C Unavailable Unavailable MORALES, JEANCARLOS DAVION RPA-C Unavailable Unavailable MORALES, JEANCARLOS DAVION RPA-C Unavailable Unavailable MORALES, JEANCARLOS DAVION RPA-C Unavailable Unavailable MORALES, JEANCARLOS DAVION RPA-C Unavailable Unavailable MORALES, JEANCARLOS DAVION RPA-C Unavailable Unavailable Rechlin, P Scott DO Unavailable Unavailable Rechlin, P Scott DO Unavailable Unavailable Rechlin, P Scott DO Unavailable Unavailable Rechlin, P Scott DO Unavailable Unavailable Rechlin, P Scott DO Unavailable Unavailable Rechlin, P Scott DO Unavailable Unavailable Rechlin, P Scott DO Unavailable Unavailable Rechlin, P Scott DO Unavailable Unavailable Rechlin, P Scott DO Unavailable Unavailable Rechlin, P Scott DO Unavailable Unavailable Rechlin, P Scott DO Unavailable Unavailable Rechlin, P Scott DO Unavailable Unavailable Rechlin, P Scott DO Unavailable Unavailable Rechlin, P Scott DO Unavailable Unavailable Rechlin, P Scott DO Unavailable Unavailable Rechlin, P Scott DO Unavailable Unavailable Rechlin, P Scott DO Unavailable Unavailable Rechlin, P Scott DO Unavailable Unavailable Rechlin, P Scott DO Unavailable Unavailable Rechlin, P Scott DO Unavailable Unavailable Rechlin, P Scott DO Unavailable Unavailable Rechlin, P Scott DO Unavailable Unavailable Rechlin, P Scott DO Unavailable Unavailable Rechlin, P Scott DO Unavailable Unavailable Rechlin, P Scott DO Unavailable Unavailable Rechlin, P Scott DO Unavailable Unavailable Rechlin, P Scott DO Unavailable Unavailable Rechlin, P Scott DO Unavailable Unavailable Rechlin, P Scott DO Unavailable Unavailable Rechlin, P Scott DO Unavailable Unavailable Rechlin, P Scott DO Unavailable Unavailable Rechlin, P Scott DO Unavailable Unavailable Rechlin, P Scott DO Unavailable Unavailable Rechlin, P Scott DO Unavailable Unavailable Rechlin, P Scott DO Unavailable Unavailable Rechlin, P Scott DO Unavailable Unavailable Rechlin, P Scott DO Unavailable Unavailable Rechlin, P Scott DO Unavailable Unavailable Rechlin, P Scott DO Unavailable Unavailable Rechlin, P Scott DO Unavailable Unavailable Rechlin, P Scott DO Unavailable Unavailable Rechlin, P Scott DO Unavailable Unavailable Rechlin, P Scott DO Unavailable Unavailable Rechlin, P Scott DO Unavailable Unavailable Rechlin, P Scott DO Unavailable Unavailable Rechlin, P Scott DO Unavailable Unavailable Rechlin, P Scott DO Unavailable Unavailable Rechlin, P Scott DO Unavailable Unavailable Abriss, Sherie Porras MD Unavailable Unavailable Abriss, Sherie Porras MD Unavailable Unavailable Abriss, Sherie Porras MD Unavailable Unavailable Abriss, Sherie Porras MD Unavailable Unavailable Abriss, Sherie Porras MD Unavailable Unavailable Abriss, Sherie Porras MD Unavailable Unavailable Abriss, Sherie Porras MD Unavailable Unavailable Abriss, Sherie Porras MD Unavailable Unavailable Abriss, Sherie Porras MD Unavailable Unavailable Abriss, Sherie Porras MD Unavailable Unavailable Abriss, Sherie Porras MD Unavailable Unavailable Abriss, Sherie Porras MD Unavailable Unavailable Abriss, Sherie Porras MD Unavailable Unavailable Abriss, Sherie Porras MD Unavailable Unavailable Abriss, Sherie Porras MD Unavailable Unavailable Abriss, Sherie Porras MD Unavailable Unavailable Abriss, Sherie Porras MD Unavailable Unavailable Abriss, Sherie Porras MD Unavailable Unavailable SHAUN, LU PA Unavailable Unavailable SHAUN, LU PA Unavailable Unavailable SHAUN, LU PA Unavailable Unavailable SHAUN, LU PA Unavailable Unavailable SHAUN, LU PA Unavailable Unavailable SHAUN, LU PA Unavailable Unavailable SHAUN, LU PA Unavailable Unavailable SHAUN, LU PA Unavailable Unavailable SHAUN, LU PA Unavailable Unavailable SHAUN, LU PA Unavailable Unavailable SHAUN, LU PA Unavailable Unavailable SHAUN, LU PA Unavailable Unavailable SHAUN, LU PA Unavailable Unavailable SHAUN, LU PA Unavailable Unavailable SHAUN, LU PA Unavailable Unavailable SHAUN, LU PA Unavailable Unavailable SHAUN, LU PA Unavailable Unavailable SHAUN, LU PA Unavailable Unavailable SHAUN, LU PA Unavailable Unavailable SHAUN, LU PA Unavailable Unavailable SHAUN, LU PA Unavailable Unavailable SHAUN, LU PA Unavailable Unavailable SHAUN, LU PA Unavailable Unavailable SHAUN, LU PA Unavailable Unavailable SHAUN, LU PA Unavailable Unavailable SHAUN, LU PA Unavailable Unavailable SHAUN, LU PA Unavailable Unavailable SHAUN, LU PA Unavailable Unavailable SHAUN, LU PA Unavailable Unavailable SHAUN, LU PA Unavailable Unavailable SHAUN, LU PA Unavailable Unavailable SHAUN, LU PA Unavailable Unavailable SHAUN, LU PA Unavailable Unavailable SHAUN, LU PA Unavailable Unavailable SHAUN, LU PA Unavailable Unavailable SHAUN, LU PA Unavailable Unavailable SHAUN, LU PA Unavailable Unavailable SHAUN, LU PA Unavailable Unavailable Sukhwinder Leal MD Unavailable Unavailable Sukhwinder Leal MD Unavailable Unavailable Sukhwinder Leal MD Unavailable Unavailable Sukhwinder Leal MD Unavailable Unavailable Sukhwinder Leal MD Unavailable Unavailable Sukhwidner Leal MD Unavailable Unavailable Sukhwinder Leal MD Unavailable Unavailable Sukhwinder Leal MD Unavailable Unavailable Sukhwinder Leal MD Unavailable Unavailable Sukhwinder Leal MD Unavailable Unavailable Sukhwinder Leal MD Unavailable Unavailable Sukhwinder Leal MD Unavailable Unavailable Sukhwinder Leal MD Unavailable Unavailable Sukhwinder Leal MD Unavailable Unavailable Sukhwinder Leal MD Unavailable Unavailable Sukhwinder Leal MD Unavailable Unavailable Sukhwinder Leal MD Unavailable Unavailable Sukhwinder Leal MD Unavailable Unavailable Sukhwinder Leal MD Unavailable Unavailable Sukhwinder Leal MD Unavailable Unavailable Sukhwinder Leal MD Unavailable Unavailable Sukhwinder Leal MD Unavailable Unavailable Sukhwinder Leal MD Unavailable Unavailable Sukhwinder Leal MD Unavailable Unavailable Sukhwinder Leal MD Unavailable Unavailable Sukhwinder Leal MD Unavailable Unavailable Sukhwinder Leal MD Unavailable Unavailable Sukhwinder Leal MD Unavailable Unavailable Sukhwinder Leal MD Unavailable Unavailable Sukhwinder Leal MD Unavailable Unavailable Sukhwinder Leal MD Unavailable Unavailable Sukhwinder Leal MD Unavailable Unavailable Sukhwinder Leal MD Unavailable Unavailable Skuhwinder Leal MD Unavailable Unavailable Sukhwinder Leal MD Unavailable Unavailable Sukhwinder Leal MD Unavailable Unavailable Sukhwinder Leal MD Unavailable Unavailable Sukhwinder Leal MD Unavailable Unavailable Sukhwinder Leal MD Unavailable Unavailable Sukhwinder Leal MD Unavailable Unavailable Sukhwinder Leal MD Unavailable Unavailable Sukhwinder Leal MD Unavailable Unavailable LealSukhwinder MD Unavailable Unavailable LealSukhwinder MD Unavailable Unavailable Leal, Sukhwinder Manzo MD Unavailable Unavailable LealSukhwinder MD Unavailable Unavailable LealSukhwinder MD Unavailable Unavailable Leal, Sukhwinder Manzo MD Unavailable Unavailable Leal, Sukhwinder Manzo MD Unavailable Unavailable Leal, Sukhwinder Manzo MD Unavailable Unavailable Leal, Sukhwinder Manzo MD Unavailable Unavailable Leal, Sukhwinder Manzo MD Unavailable Unavailable Leal, Sukhwinder Manzo MD Unavailable Unavailable Leal, Sukhwinder Manzo MD Unavailable Unavailable Leal, Sukhwinder Manzo MD Unavailable Unavailable Leal, Sukhwinder Manzo MD Unavailable Unavailable LealSukhwinder MD Unavailable Unavailable Leal, Sukhwinder Manzo MD Unavailable Unavailable Leal, Sukhwinder Manzo MD Unavailable Unavailable Leal, Sukhwinder Manzo MD Unavailable Unavailable Leal, Sukhwinder Manzo MD Unavailable Unavailable Leal, Sukhwinder Manzo MD Unavailable Unavailable Leal, Sukhwinder Manzo MD Unavailable Unavailable Leal, Sukhwinder Manzo MD Unavailable Unavailable Leal, Sukhwinder Manzo MD Unavailable Unavailable Leal, Sukhwinder Manzo MD Unavailable Unavailable Leal, Sukhwinder Manzo MD Unavailable Unavailable Leal, Sukhwinder Manzo MD Unavailable Unavailable Leal, Sukhwinder Manzo MD Unavailable Unavailable Leal, Sukhwinder Manzo MD Unavailable Unavailable Leal, Sukhwinder Manzo MD Unavailable Unavailable Leal, Sukhwinder Manzo MD Unavailable Unavailable Justyna, A Radha BOILER TESTING TECHNICIAN Unavailable Unavailable Justyna, A Radha BOILER TESTING TECHNICIAN Unavailable Unavailable Justyna, A Radha BOILER TESTING TECHNICIAN Unavailable Unavailable Justyna, A Radha BOILER TESTING TECHNICIAN Unavailable Unavailable Justyna, A Radha BOILER TESTING TECHNICIAN Unavailable Unavailable Justyna, A Radha BOILER TESTING TECHNICIAN Unavailable Unavailable Justyna, A Radha BOILER TESTING TECHNICIAN Unavailable Unavailable Justyna, A Radha BOILER TESTING TECHNICIAN Unavailable Unavailable Justyna, A Radha BOILER TESTING TECHNICIAN Unavailable Unavailable Justyna, A Radha BOILER TESTING TECHNICIAN Unavailable Unavailable Justyna, A Radha BOILER TESTING TECHNICIAN Unavailable Unavailable Justyna, A Radha BOILER TESTING TECHNICIAN Unavailable Unavailable Justyna, A Radha BOILER TESTING TECHNICIAN Unavailable Unavailable Justyna, A Radha BOILER TESTING TECHNICIAN Unavailable Unavailable Justyna, A Radha BOILER TESTING TECHNICIAN Unavailable Unavailable Justyna, A Radha BOILER TESTING TECHNICIAN Unavailable Unavailable Justyna, A Radha BOILER TESTING TECHNICIAN Unavailable Unavailable Justyna, A Radha BOILER TESTING TECHNICIAN Unavailable Unavailable Justyna, A Radha BOILER TESTING TECHNICIAN Unavailable Unavailable Justyna, A Radha BOILER TESTING TECHNICIAN Unavailable Unavailable Justyna, A Radha BOILER TESTING TECHNICIAN Unavailable Unavailable Justyna, A Radha BOILER TESTING TECHNICIAN Unavailable Unavailable Justyna, A Radha BOILER TESTING TECHNICIAN Unavailable Unavailable Justyna, A Radha BOILER TESTING TECHNICIAN Unavailable Unavailable Justyna, A Radha BOILER TESTING TECHNICIAN Unavailable Unavailable Justyna, A Radha BOILER TESTING TECHNICIAN Unavailable Unavailable Justyna, A Radha BOILER TESTING TECHNICIAN Unavailable Unavailable Justyna, A Radha BOILER TESTING TECHNICIAN Unavailable Unavailable Justyna, A Radha BOILER TESTING TECHNICIAN Unavailable Unavailable Justyna, A Radha BOILER TESTING TECHNICIAN Unavailable Unavailable Justyna, A Radha BOILER TESTING TECHNICIAN Unavailable Unavailable Justyna, A Radha BOILER TESTING TECHNICIAN Unavailable Unavailable Justyna, A Radha BOILER TESTING TECHNICIAN Unavailable Unavailable Justyna, A Radha BOILER TESTING TECHNICIAN Unavailable Unavailable Justyna, A Radha BOILER TESTING TECHNICIAN Unavailable Unavailable Justyna, A Radha BOILER TESTING TECHNICIAN Unavailable Unavailable Justyna, A Radha BOILER TESTING TECHNICIAN Unavailable Unavailable Justyna, A Radha BOILER TESTING TECHNICIAN Unavailable Unavailable Justyna, A Radha BOILER TESTING TECHNICIAN Unavailable Unavailable Justyna, A Radha BOILER TESTING TECHNICIAN Unavailable Unavailable Ujstyna, A Radha BOILER TESTING TECHNICIAN Unavailable Unavailable Justyna, A Radha BOILER TESTING TECHNICIAN Unavailable Unavailable Justyna, A Radha BOILER TESTING TECHNICIAN Unavailable Unavailable Justyna, A Radha BOILER TESTING TECHNICIAN Unavailable Unavailable Jennifer, [facility] Marci BOILER TESTING TECHNICIAN-C Unavailable Unavailabl e Jennifer, [facility] Marci BOILER TESTING TECHNICIAN-C Unavailable Unavailabl e Jennifer, [facility] Marci BOILER TESTING TECHNICIAN-C Unavailable Unavailabl e Jennifer, [facility] Marci BOILER TESTING TECHNICIAN-C Unavailable Unavailabl e Jennifer, [facility] Marci BOILER TESTING TECHNICIAN-C Unavailable Unavailabl e Jennifer, [facility] Marci BOILER TESTING TECHNICIAN-C Unavailable Unavailabl e Jennifer, [facility] Marci BOILER TESTING TECHNICIAN-C Unavailable Unavailabl e Jennifer, [facility] Marci BOILER TESTING TECHNICIAN-C Unavailable Unavailabl e Jennifer, [facility] Marci BOILER TESTING TECHNICIAN-C Unavailable Unavailabl e Jennifer, [facility] Marci BOILER TESTING TECHNICIAN-C Unavailable Unavailabl e Jennifer, [facility] Marci BOILER TESTING TECHNICIAN-C Unavailable Unavailabl e Jennifer, [facility] Marci BOILER TESTING TECHNICIAN-C Unavailable Unavailabl e Jennifer, Reginah W Marci BOILER TESTING TECHNICIAN-C Unavailable Unavailabl e Jennifer, Jeanne W Marci BOILER TESTING TECHNICIAN-C Unavailable Unavailabl e Jennifer, Jeanne W Marci BOILER TESTING TECHNICIAN-C Unavailable Unavailabl e Jennifer, Gavininagilma W Marci BOILER TESTING TECHNICIAN-C Unavailable Unavailabl e Jennifer, Jeanne W Marci BOILER TESTING TECHNICIAN-C Unavailable Unavailabl e Jennifer, Gavininagilma W Marci BOILER TESTING TECHNICIAN-C Unavailable Unavailabl e Jennifer, Gavininagilma W Marci BOILER TESTING TECHNICIAN-C Unavailable Unavailabl e Jennifer, Reginagilma W Marci BOILER TESTING TECHNICIAN-C Unavailable Unavailabl e Jennifer, Reginagilma W Marci BOILER TESTING TECHNICIAN-C Unavailable Unavailabl e Jennifer, Jeanne W Marci BOILER TESTING TECHNICIAN-C Unavailable Unavailabl e Jennifer, Jeanne W Marci BOILER TESTING TECHNICIAN-C Unavailable Unavailabl e Jennifer, Jeanne W Marci BOILER TESTING TECHNICIAN-C Unavailable Unavailabl e Jennifer, Jeanne W Marci BOILER TESTING TECHNICIAN-C Unavailable Unavailabl e Jennifer, Jeanne W Marci BOILER TESTING TECHNICIAN-C Unavailable Unavailabl e Jennifer, Gavininagilma W Marci BOILER TESTING TECHNICIAN-C Unavailable Unavailabl e Jennifer, Jeanne W Marci BOILER TESTING TECHNICIAN-C Unavailable Unavailabl e Jennifer, Jeanne W Marci BOILER TESTING TECHNICIAN-C Unavailable Unavailabl e Jennifer, Jeanne Henley Marci BOILER TESTING TECHNICIAN-C Unavailable Unavailabl e Jennifer, Jeanne W Marci BOILER TESTING TECHNICIAN-C Unavailable Unavailabl e Jennifer, Jeanne W Marci BOILER TESTING TECHNICIAN-C Unavailable Unavailabl e Paul, Carolynn MEASURING MACHINE TENDER Unavailable Unavailable Paul, Carolynn MEASURING MACHINE TENDER Unavailable Unavailable Paul, Carolynn MEASURING MACHINE TENDER Unavailable Unavailable Paul, Carolynn MEASURING MACHINE TENDER Unavailable Unavailable Paul, Carolynn MEASURING MACHINE TENDER Unavailable Unavailable Paul, Carolynn MEASURING MACHINE TENDER Unavailable Unavailable Paul, Carolynn MEASURING MACHINE TENDER Unavailable Unavailable Paul, Carolynn MEASURING MACHINE TENDER Unavailable Unavailable Paul, Carolynn MEASURING MACHINE TENDER Unavailable Unavailable Paul, Carolynn MEASURING MACHINE TENDER Unavailable Unavailable Paul, Carolynn MEASURING MACHINE TENDER Unavailable Unavailable MARU QUINTANILLA MD Unavailable Unavailable MARU QUINTANILLA MD Unavailable Unavailable MARU QUINTANILLA MD Unavailable Unavailable MARU QUINTANILLA MD Unavailable Unavailable MARU QUINTANILLA MD Unavailable Unavailable MARU QUINTANILLA MD Unavailable Unavailable MARU QUINTANILLA MD Unavailable Unavailable MARU QUINTANILLA MD Unavailable Unavailable MARU QUINTANILLA MD Unavailable Unavailable MARU QUINTANILLA MD Unavailable Unavailable MARU QUINTANILLA MD Unavailable Unavailable MARU QUINTANILLA MD Unavailable Unavailable MARU QUINTANILLA MD Unavailable Unavailable MARU QUINTANILLA MD Unavailable Unavailable MARU QUINTANILLA MD Unavailable Unavailable MARU QUINTANILLA MD Unavailable Unavailable MARU QUINTANILLA MD Unavailable Unavailable MARU QUINTANILLA MD Unavailable Unavailable MARU QUINTANILLA MD Unavailable Unavailable MARU QUINTANILLA MD Unavailable Unavailable MARU QUINTANILLA MD Unavailable Unavailable MARU QUINTANILLA MD Unavailable Unavailable MARU QUINTANILLA MD Unavailable Unavailable MARU QUINTANILLA MD Unavailable Unavailable MARU QUINTANILLA MD Unavailable Unavailable MARU QUINTANILLA MD Unavailable Unavailable MARU QUINTANILLA MD Unavailable Unavailable MARU QUINTANILLA MD Unavailable Unavailable MARU QUINTANILLA MD Unavailable Unavailable MARU QUINTANILLA MD Unavailable Unavailable MARU QUINTANILLA MD Unavailable Unavailable MARU QUINTANILLA MD Unavailable Unavailable MARU QUINTANILLA MD Unavailable Unavailable MARU QUINTANILLA MD Unavailable Unavailable MARU QUINTANILLA MD Unavailable Unavailable MARU QUINTANILLA MD Unavailable Unavailable MARU QUINTANILLA MD Unavailable Unavailable MARU QUINTANILLA MD Unavailable Unavailable MARU QUINTANILLA MD Unavailable Unavailable MARU QUINTANILLA MD Unavailable Unavailable MARU QUINTANILLA MD Unavailable Unavailable MARU QUINTANILLA MD Unavailable Unavailable MARU QUINTANILLA MD Unavailable Unavailable MARU QUINTANILLA MD Unavailable Unavailable MARU QUINTANILLA MD Unavailable Unavailable MARU QUINTANILLA MD Unavailable Unavailable MARU QUINTANILLA MD Unavailable Unavailable MARU QUINTANILLA MD Unavailable Unavailable MARU QUINTANILLA MD Unavailable Unavailable MARU QUINTANILLA MD Unavailable Unavailable MARU QUINTANILLA MD Unavailable Unavailable MARU QUINTANILLA MD Unavailable Unavailable MARU QUINTANILLA MD Unavailable Unavailable MARU QUINTANILLA MD Unavailable Unavailable MARU QUINTANILLA MD Unavailable Unavailable MARU QUINTANILLA MD Unavailable Unavailable MARU QUINTANILLA MD Unavailable Unavailable MARU QUINTANILLA MD Unavailable Unavailable MARU QUINTANILLA MD Unavailable Unavailable MARU QUINTANILLA MD Unavailable Unavailable MARU QUINTANILLA MD Unavailable Unavailable MARU QUINTANILLA MD Unavailable Unavailable MARU QUINTANILLA MD Unavailable Unavailable MARU QUINTANILLA MD Unavailable Unavailable MARU QUINTANILLA MD Unavailable Unavailable MARU QUINTANILLA MD Unavailable Unavailable CHROSTOWSKI, INA MD Unavailable Unavailable CHROSTOWSKILARYINA MD Unavailable Unavailable CHROSTOWSKI, INA MD Unavailable Unavailable CHROSTOWSKI INA MD Unavailable Unavailable CHROSTOWSKI INA MD Unavailable Unavailable CHROSTOWSKI, INA MD Unavailable Unavailable CHROSTOWSKI, INA MD Unavailable Unavailable CHROSTOWSKI, INA MD Unavailable Unavailable CHROSTOWSKI, INA MD Unavailable Unavailable CHROSTOWSKI, INA MD Unavailable Unavailable CHROSTOWSKI, INA MD Unavailable Unavailable CHROSTOWSKI, INA MD Unavailable Unavailable CHROSTOWSKI, INA MD Unavailable Unavailable CHROSTOWSKI, NIA MD Unavailable Unavailable CHROSTOWSKI, INA MD Unavailable Unavailable CHROSTOWSKI, INA MD Unavailable Unavailable CHROSTOWSKI, INA MD Unavailable Unavailable CHROSTOWSKI, INA MD Unavailable Unavailable CHROSTOWSKI, INA MD Unavailable Unavailable CHROSTOWSKI, INA MD Unavailable Unavailable CHROSTOWSKI, INA MD Unavailable Unavailable CHROSTOWSKI INA MD Unavailable Unavailable CHROSTOWSKI, INA MD Unavailable Unavailable CHROSTOWSKI, INA MD Unavailable Unavailable CHROSTOWSKI, INA MD Unavailable Unavailable CHROSTOWSKI, INA MD Unavailable Unavailable CHROSTOWSKI, INA MD Unavailable Unavailable CHROSTOWSKI, INA MD Unavailable Unavailable CHROSTOWSKI, INA MD Unavailable Unavailable CHROSTOWSKI, INA MD Unavailable Unavailable CHROSTOWSKI, INA MD Unavailable Unavailable CHROSTOWSKI, INA MD Unavailable Unavailable CHROSTOWSKI, INA MD Unavailable Unavailable CHROSTOWSKI, INA MD Unavailable Unavailable CHROSTOWSKI, INA MD Unavailable Unavailable CHROSTOWSKI, INA MD Unavailable Unavailable CHROSTOWSKI, INA MD Unavailable Unavailable CHROSTOWSKI, INA MD Unavailable Unavailable CHROSTOWSKI, INA MD Unavailable Unavailable CHROSTOWSKI, INA MD Unavailable Unavailable Shannon, Trina BOILER TESTING TECHNICIAN Unavailable Unavailable Shannon, Trina BOILER TESTING TECHNICIAN Unavailable Unavailable Shannon, Trina BOILER TESTING TECHNICIAN Unavailable Unavailable Shannon, Trina BOILER TESTING TECHNICIAN Unavailable Unavailable Shannon, Trina BOILER TESTING TECHNICIAN Unavailable Unavailable Shannon, Trina BOILER TESTING TECHNICIAN Unavailable Unavailable Shannon, Trina BOILER TESTING TECHNICIAN Unavailable Unavailable Shannon, Trina BOILER TESTING TECHNICIAN Unavailable Unavailable Shannon, Trina BOILER TESTING TECHNICIAN Unavailable Unavailable Shannon, Trina BOILER TESTING TECHNICIAN Unavailable Unavailable Shannon, Trina BOILER TESTING TECHNICIAN Unavailable Unavailable Shannon, Trina BOILER TESTING TECHNICIAN Unavailable Unavailable Shannon, Trina BOILER TESTING TECHNICIAN Unavailable Unavailable Shannon, Trina BOILER TESTING TECHNICIAN Unavailable Unavailable Shannon, Trina BOILER TESTING TECHNICIAN Unavailable Unavailable Shannon, Trina BOILER TESTING TECHNICIAN Unavailable Unavailable Shannon, Trina BOILER TESTING TECHNICIAN Unavailable Unavailable Shannon, Trina BOILER TESTING TECHNICIAN Unavailable Unavailable Shannon, Trina BOILER TESTING TECHNICIAN Unavailable Unavailable Shannon, Trina BOILER TESTING TECHNICIAN Unavailable Unavailable Shannon, Trina BOILER TESTING TECHNICIAN Unavailable Unavailable Shannon, Trina BOILER TESTING TECHNICIAN Unavailable Unavailable Shannon, Trina BOILER TESTING TECHNICIAN Unavailable Unavailable Shannon, Trina BOILER TESTING TECHNICIAN Unavailable Unavailable Shannon, Trina BOILER TESTING TECHNICIAN Unavailable Unavailable Shannon, Trina BOILER TESTING TECHNICIAN Unavailable Unavailable Shannon, Trina BOILER TESTING TECHNICIAN Unavailable Unavailable Shannon, Trina BOILER TESTING TECHNICIAN Unavailable Unavailable Shannon, Trina BOILER TESTING TECHNICIAN Unavailable Unavailable Shannon, Trina BOILER TESTING TECHNICIAN Unavailable Unavailable Shannon, Trina BOILER TESTING TECHNICIAN Unavailable Unavailable Shannon, Trina BOILER TESTING TECHNICIAN Unavailable Unavailable Shannon, Trina BOILER TESTING TECHNICIAN Unavailable Unavailable Shannon, Trina BOILER TESTING TECHNICIAN Unavailable Unavailable Shannon, Trina BOILER TESTING TECHNICIAN Unavailable Unavailable Shannon, Trina BOILER TESTING TECHNICIAN Unavailable Unavailable Camargo, Yoseph Zaldivar MD Unavailable Unavailable Camargo, Yoseph Zaldivar MD Unavailable Unavailable Camargo, Yoseph Zaldivar MD Unavailable Unavailable Camargo, Yoseph Zaldivar MD Unavailable Unavailable Camargo, Yoseph Zaldivar MD Unavailable Unavailable Camargo, Yoseph Zaldivar MD Unavailable Unavailable Camargo, Yoseph Zaldivar MD Unavailable Unavailable Camargo, Yoseph Zaldivar MD Unavailable Unavailable Camargo, Yoseph Zaldivar MD Unavailable Unavailable Camargo, Yoseph Zaldivar MD Unavailable Unavailable Camargo, Yoseph Zaldivar MD Unavailable Unavailable Camargo, Yoseph Zaldivar MD Unavailable Unavailable Camargo, Yoseph Zaldivar MD Unavailable Unavailable Camargo, Yoseph Zaldivar MD Unavailable Unavailable Camargo, Yoseph Zaldivar MD Unavailable Unavailable Camargo, Yoseph Zaldivar MD Unavailable Unavailable Camargo, Yoseph Zaldivar MD Unavailable Unavailable Camargo, Yoseph Zaldivar MD Unavailable Unavailable Camargo, Yoseph Zaldivar MD Unavailable Unavailable Camargo, Yoseph Zaldivar MD Unavailable Unavailable Camargo, Yoseph Zaldivar MD Unavailable Unavailable Camargo, Yoseph Zaldivar MD Unavailable Unavailable Camargo, Yoseph Zaldivar MD Unavailable Unavailable Camargo, Yoseph Zaldivar MD Unavailable Unavailable Camargo, Yoseph Zaldivar MD Unavailable Unavailable Camargo, Yoseph Zaldivar MD Unavailable Unavailable Camargo, Yoseph Zaldivar MD Unavailable Unavailable Camargo, Yoseph Zaldivar MD Unavailable Unavailable Camargo, Yoseph Zaldivar MD Unavailable Unavailable Camargo, Yoseph Zaldivar MD Unavailable Unavailable Camargo, Yoseph Zaldivar MD Unavailable Unavailable Camargo, Yoseph Zaldivar MD Unavailable Unavailable Camargo, Yoseph Zaldivar MD Unavailable Unavailable Camargo, Yoseph Zaldivar MD Unavailable Unavailable Camargo, Yoseph Zaldivar MD Unavailable Unavailable Camargo, Yoseph Zaldivar MD Unavailable Unavailable Camargo, Yoseph Zaldivar MD Unavailable Unavailable Camargo, L Zen LAMB Unavailable Unavailable Camargo, L Zen LAMB Unavailable Unavailable Camargo, L Zen LAMB Unavailable Unavailable Camargo, L Zen LAMB Unavailable Unavailable Camargo, L Zen LAMB Unavailable Unavailable Camargo, L Zen LAMB Unavailable Unavailable Camargo, L Zen MD Unavailable Unavailable Camargo, L Zen MD Unavailable Unavailable Camargo, L Zen MD Unavailable Unavailable Camargo, L Zen MD Unavailable Unavailable Daiana, L Delia MEASURING MACHINE TENDER Unavailable Unavailable Daiana, L Delia MEASURING MACHINE TENDER Unavailable Unavailable Daiana, L Delia MEASURING MACHINE TENDER Unavailable Unavailable Daiana, L Delia MEASURING MACHINE TENDER Unavailable Unavailable Daiana, L Delia MEASURING MACHINE TENDER Unavailable Unavailable Daiana, L Delia MEASURING MACHINE TENDER Unavailable Unavailable Daiana, L Delia MEASURING MACHINE TENDER Unavailable Unavailable Daiana, L Delia MEASURING MACHINE TENDER Unavailable Unavailable Daiana, L Delia MEASURING MACHINE TENDER Unavailable Unavailable Daiana, L Delia MEASURING MACHINE TENDER Unavailable Unavailable Daiana, L Delia MEASURING MACHINE TENDER Unavailable Unavailable Daiana, L Delia MEASURING MACHINE TENDER Unavailable Unavailable Daiana, L Delia MEASURING MACHINE TENDER Unavailable Unavailable Daiana, L Delia MEASURING MACHINE TENDER Unavailable Unavailable Daiana, L Delia MEASURING MACHINE TENDER Unavailable Unavailable Daiana, L Delia MEASURING MACHINE TENDER Unavailable Unavailable Daiana, L Delia MEASURING MACHINE TENDER Unavailable Unavailable Daiana, L Delia MEASURING MACHINE TENDER Unavailable Unavailable Daiana, L Delia MEASURING MACHINE TENDER Unavailable Unavailable Daiana, L Delai MEASURING MACHINE TENDER Unavailable Unavailable Daiana, L Delia MEASURING MACHINE TENDER Unavailable Unavailable Daiana, L Delia MEASURING MACHINE TENDER Unavailable Unavailable Re-disclosure Warning The records that you are about to access may contain information from federally-assisted alcohol or drug abuse programs. If such information is present, then the following federally mandated warning applies: This information has been disclosed to you from records protected by federal confidentiality rules (42 CFR part 2). The federal rules prohibit you from making any further disclosure of this information unless further disclosure is expressly permitted by the written consent of the person to whom it pertains or as otherwise permitted by 42 CFR part 2. A general authorization for the release of medical or other information is NOT sufficient for this purpose. The Federal rules restrict any use of the information to criminally investigate or prosecute any alcohol or drug abuse patient.The records that you are about to access may contain highly sensitive health information, the redisclosure of which is protected by Article 27-F of the [facility] Public Health law. If you continue you may have access to information: Regarding HIV / AIDS; Provided by facilities licensed or operated by the [facility] Office of Mental Health; or Provided by the [facility] Office for People With Developmental Disabilities. If such information is present, then the following [facility] mandated warning applies: This information has been disclosed to you from confidential records which are protected by state law. State law prohibits you from making any further disclosure of this information without the specific written consent of the person to whom it pertains, or as otherwise permitted by law. Any unauthorized further disclosure in violation of state law may result in a fine or retirement sentence or both. A general authorization for the release of medical or other information is NOT sufficient authorization for further disc losure. Allergies and Adverse Reactions Type Description Substance Reaction Status Data Source(s ) Drug allergy Penicillin (For Allergies Use Only) Drug allergy Hives Active eCW1 ([facility]) Parafon Forte DSC Parafon Forte DSC Parafon Forte DSC RASH Acti ve eCW1 ([facility]) bees bees bees Anaphylaxis Active eCW1 ([facility]) sulfa sulfa sulfa hives Active eCW1 ([facility]) pravachol pravachol Pravastatin Sodium 40 MG Oral Ta blet [Pravachol] body aches Active eCW1 ([facility]) Parafon Forte DSC Parafon Forte DSC Parafon Forte DSC RASH Acti ve eCW1 ([facility]) pravachol pravachol Pravastatin Sodium 40 MG Oral Ta blet [Pravachol] body aches Active eCW1 ([facility]) bees bees bees Anaphylaxis Active eCW1 ([facility]) sulfa sulfa sulfa hives Active eCW1 ([facility]) Parafon Forte DSC Parafon Forte DSC Parafon Forte DSC RASH Acti ve eCW1 ([facility]) bees bees bees Anaphylaxis Active eCW1 ([facility]) sulfa sulfa sulfa hives Active eCW1 ([facility]) pravachol pravachol Pravastatin Sodium 40 MG Oral Ta blet [Pravachol] body aches Active eCW1 ([facility]) Penicillin G Sodium Penicillin G Sodium Penicillin G Sodium 603442 UNT/ML Injectable Solution hives Active eCW1 ([facility]) Sulfacet-R Sulfacet-R Sulfacet-R hives Active eCW1 ([facility]) Parafon Forte DSC Parafon Forte DSC Parafon Forte DSC RASH Acti ve eCW1 ([facility]) bees bees bees Anaphylaxis Active eCW1 ([facility]) sulfa sulfa sulfa hives Active eCW1 ([facility]) pravachol pravachol Pravastatin Sodium 40 MG Oral Ta blet [Pravachol] body aches Active eCW1 ([facility]) Parafon Forte DSC Parafon Forte DSC Parafon Forte DSC RASH Acti ve eCW1 ([facility]) sulfa sulfa sulfa hives Active eCW1 ([facility]) bees bees bees Anaphylaxis Active eCW1 ([facility]) pravachol pravachol Pravastatin Sodium 40 MG Oral Ta blet [Pravachol] body aches Active eCW1 ([facility]) Family History Family Member Name Family Member Gender Family Member Status Date o f Status Description Data Source(s) Unknown Unknown Problem MEDENT ([facility]) Encounters Encounter Providers Location Date Indications Data Source(s ) Outpatient Attender: LU roy 04/25/2020 08:35:00 AM EST MEDENT ([facility]) Office Visit Attender: MARU QUINTANILLA MD Physical Therapy 01:45:00 PM EST MEDENT ([facility]) Outpatient [address] [facility] [address] 04/07/2020 12:00:00 AM EST eCW1 ([facility]) Unknown [address] [facility] [place] [address] 03/16/2020 12:00:00 AM EST eCW1 ([facility]) Outpatient [address] [facility] [address] 03/15/2020 12:00:00 AM EST eCW1 ([facility]) [place] [address] [facility] [address] 03/15/2020 12:00:00 AM EST eCW1 ([facility]) Unknown [address] [facility] [address] 03/15/2020 12:00:00 AM EST eCW1 ([facility]) Unknown [address] [facility] [place] [address] 03/05/2020 12:00:00 AM EST eCW1 ([facility]) Outpatient [address] [facility] [address] 03/02/2020 12:00:00 AM EST eCW1 ([facility]) Emergency Attender: BRIGIDO Brocker: Jovany Leal MD 01/30/2020 03:46:00 PM EST - 01/30/2020 03:55:00 PM [facility] Patient discharged. [place] [address] [facility] [address] 01/23/2020 12:00:00 AM EDT eCW1 ([facility]) Outpatient Attender: Delia Rea/Liberty/Rajeev/Reindl 01/08/2020 02:30:00 PM EDT MEDENT ([facility]) Unknown [address] [facility] [place] [address] 01/07/2020 12:00:00 AM EDT eCW1 ([facility]) Unknown [address] [facility] [place] [address] 01/07/2020 12:00:00 AM EDT eCW1 ([facility]) Outpatient Attender: Carolynn flores 11/19/2019 10:15:00 AM EDT MED[facility] ([facility] Outpatient Attender: Delia Rea/Liberty/Rajeev/Reindl 10/22/2019 11:00:00 AM EDT MEDENT ([facility]) Office Visit Attender: Zen Camargo MD Physical Therapy 2019 02:30:00 PM EDT MEDENT ([facility]) [place] [address] [facility] [place] [address] 10/10/2019 12:00:00 AM EDT eCW1 ([facility]) Unknown [address] [facility] [place] [address] 09/12/2019 12:00:00 AM EDT eCW1 ([facility]) Unknown [address] [facility] [place] [address] 09/11/2019 12:00:00 AM EDT eCW1 ([facility]) Office Visit Attender: MARU QUINTANILLA MD Physical Therapy 09:15:00 AM EDT MEDENT ([facility]) Office Visit Attender: MARU QUINTANILLA MD Physical Therapy 11:15:00 AM EDT MEDENT ([facility]) ( [facility] Year[facility] FEED CRUSHER Exam [address] [place] [address] 08/27/2019 12:00:00 AM EDT eCW1 ([facility]) Outpatient Referrer: MARU QUINTANILLA MD 08/21/2019 02:44:0 0 PM EDT [facility] Outpatient Referrer: MARU QUINTANILLA MD 08/21/2019 10:16:0 0 AM EDT [facility] Outpatient Referrer: MARU QUINTANILLA MD 08/21/2019 10:16:0 0 AM EDT [facility] Outpatient Referrer: MARU QUINTANILLA MD 08/21/2019 10:13:0 0 AM EDT [facility] Outpatient Referrer: MARU QUINTANILLA MD 08/14/2019 12:49:0 0 PM EDT [facility] Outpatient 08/14/2019 12:44:00 PM EDT [facility] Outpatient 08/14/2019 12:13:00 PM EDT [facility] Marky [address] [facility] [place] [address] 08/14/2019 12:00:00 AM EDT eCW1 ([facility]) [facility] Skylar [address] [facility] [address] 08/13/2019 12:00:00 AM EDT eCW1 ([facility]) Outpatient Attender: INA HERRING MD Main Office 08/07/2019 01:45:00 PM EDT MEDENT ([facility]) OFFICE OUTPATIENT NEW 30 MINUTES Attender: MARU QUINTANILLA MD Ph ysical Therapy 08/07/2019 10:00:00 AM EDT MEDENT ([facility]) Outpatient Attender: Scott Chaudhari/Helena/Rajeev/Davian ndl 07/23/2019 10:30:00 AM EDT MEDENT ([facility]) Outpatient Attender: INA HERRING MD Main Office 07/23/2019 09:15:00 AM EDT MED[facility] ([facility]) [address] [address] 07/21/2019 12:00:00 AM EDT eCW1 ([facility]) [address] [address] 07/18/2019 12:00:00 AM EDT eCW1 ([facility]) [address] [place] [address] 07/18/2019 12:00:00 AM EDT eCW1 ([facility]) [address] [place] [address] 07/18/2019 12:00:00 AM EDT eCW1 ([facility]) [address] [place] [address] 07/18/2019 12:00:00 AM EDT eCW1 ([facility]) [address] [place] [address] 07/14/2019 12:00:00 AM EDT eCW1 ([facility]) [address] [place] [address] 07/10/2019 12:00:00 AM EDT eCW1 ([facility]) [address] [address] 05/30/2019 12:00:00 AM EST eCW1 ([facility]) Outpatient Attender: Vern Rea/Helena/Rajeev/Re indl 05/29/2019 12:00:00 PM EST MEDENT ([facility]) Outpatient 05/28/2019 11:56:00 AM EST [facility] [address] [address] 05/21/2019 12:00:00 AM EST eCW1 ([facility]) Outpatient Attender: Vern Rea/Helena/Rajeev/Re indl 04/30/2019 12:00:00 PM EST MED[facility] ([facility]) [address] [place] [address] 04/30/2019 12:00:00 AM EST eCW1 ([facility]) [address] [place] [address] 04/30/2019 12:00:00 AM EST eCW1 ([facility]) Outpatient 04/17/2019 01:48:00 PM EST [facility] Outpatient Attender: Scott Dougherty DO Main Office 04/16/2019 08:30:00 AM EST MEDENT ([facility] [address] [address] 04/09/2019 12:00:00 AM EST eCW1 ([facility]) Outpatient Attender: Delia Ahmadi MEASURING MACHINE TENDER Main Office 04/08/2019 09:00:00 AM EST MEDENT ([facility] Outpatient Attender: Marci BARNES-CReferrer: Jovany Leal MD 04/04/2019 12:16:00 PM EST - 04/04/2019 12:16:00 PM EST [facility] Admission cancelled. Disregard status an d admitted date. Outpatient Attender: Marci CROW 04/04/2019 11:30:0 0 AM EST [facility] 0 12:00:00 AM EST eCW1 ([facility]) [address] [address] 03/24/2019 12:00:00 AM EST eCW1 ([facility]) [address] [address] 03/24/2019 12:00:00 AM EST eCW1 ([facility]) [address] [address] 03/21/2019 12:00:00 AM EST eCW1 ([facility]) [address] [address] 03/20/2019 12:00:00 AM EST eCW1 ([facility]) Outpatient Attender: Radha Jansen [facility] 12/11/2018 10:56 :00 AM [facility] Outpatient Attender: DAVION MCNULTYCReferrer: Won Leal MD EMERGENCY ROOM-LAB REF 10/30/2018 01:54:00 PM [facility] - 10/30/2018 01:54:00 PM [facility] Outpatient Attender: DAVION LOYOLA 10/30/2018 01:30:00 PM [facility] Outpatient Attender: Trina Shannon BOILER TESTING TECHNICIAN 06/29 02:20:00 PM [facility] - 06/29/2017 02:20:00 PM [facility] Medications Medication Brand Name Start Date Product Form Dose Route Admi nistrative Instructions Pharmacy Instructions Status Indications Reaction Description Data Source(s) 10 mg 04/28/2020 12:00:00 AM EST tablet 30 TAKE FOUR TABLETS BY MOUTH EVERY DAY FOR DAYS 1 TO 3 THEN 3 TABLETS DAYS 4 TO 6 THEN 2 TABLETS FOR DAYS 7 TO 9 THEN 1 DAILY FOR DAYS 10 TO 12 TAKE FOUR TABLETS BY MOUTH EVERY DAY FOR DAYS 1 TO 3 THEN 3 TABLETS DAYS 4 TO 6 THEN 2 TABLETS FOR DAYS 7 TO 9 THEN 1 DAILY FOR DAYS 10 TO 12 SOLD: 04/29/2020 [facility] 12 HR Guaifenesin 1200 MG Extended Release Oral Tablet Guaif enesin ER 04/25/2020 12:00:00 AM EST ORAL active MEDENT ([facility]) Prednisone 20 MG Oral Tablet Prednisone 04/25/2020 12:00:00 AM EST ORAL active MEDENT ([facility]) 20 mg 04/25/2020 12:00:00 AM EST tablet 10 TAKE TWO TABLETS BY MOUTH EVERY DAY FOR 5 DAYS TAKE TWO TABLETS BY MOUTH EVERY DAY FOR 5 DAYS SOLD: 021 [facility] Doxycycline Monohydrate 100 MG Oral Capsule Doxycycline [place] hydrate 04/25/2020 12:00:00 AM EST ORAL active M EDENT ([facility]) 100 mg 04/25/2020 12:00:00 AM EST capsule 20 TAKE ONE CAPSULE BY MOUTH TWICE A DAY FOR 10 DAYS TAKE ONE CAPSULE BY MOUTH TWICE A DAY FOR 10 DAYS SOLD : 04/25/2020 [facility] 150 mg 03/29/2020 12:00:00 AM EST tablet 2 TAKE ONE TABLET BY MOUTH EVERY DAY, REPEAT ONCE IN 3 DAYS TAKE ONE TABLET BY MOUTH EVERY DAY, REPE AT ONCE IN 3 DAYS SOLD: 03/31/2020 [facility] Fluconazole 150 MG Oral Tablet [Diflucan] Diflucan 150 MG Di flucan 150 MG 03/15/2020 12:00:00 AM EST 1.0 {tablet} active Diflucan 150 MG eCW1 ([facility]) Ciprofloxacin 500 MG Oral Tablet [Cipro] Cipro 500 MG Cipro 500 MG 03/15/2020 12:00:00 AM EST 1.0 {tablet} suspended Cipro 500 MG eCW1 ([facility]) Ciprofloxacin 500 MG Oral Tablet [Cipro] Cipro 500 MG Cipro 500 MG 03/15/2020 12:00:00 AM EST 1.0 {tablet} active Ci pro 500 MG eCW1 ([facility]) Fluconazole 150 MG Oral Tablet [Diflucan] Diflucan 150 MG Di flucan 150 MG 03/15/2020 12:00:00 AM EST 1.0 {tablet} suspended Diflucan 150 MG eCW1 ([facility]) Ciprofloxacin 500 MG Oral Tablet [Cipro] Cipro 500 MG Cipro 500 MG 03/15/2020 12:00:00 AM EST 1.0 {tablet} active Ci pro 500 MG eCW1 ([facility]) Fluconazole 150 MG Oral Tablet [Diflucan] Diflucan 150 MG Di flucan 150 MG 03/15/2020 12:00:00 AM EST 1.0 {tablet} active Diflucan 150 MG eCW1 ([facility]) Ciprofloxacin 500 MG Oral Tablet [Cipro] Cipro 500 MG Cipro 500 MG 03/15/2020 12:00:00 AM EST 1.0 {tablet} active Ci pro 500 MG eCW1 ([facility]) Ciprofloxacin 500 MG Oral Tablet [Cipro] Cipro 500 MG Cipro 500 MG 03/15/2020 12:00:00 AM EST 1.0 {tablet} active Ci pro 500 MG eCW1 ([facility]) Fluconazole 150 MG Oral Tablet [Diflucan] Diflucan 150 MG Di flucan 150 MG 03/15/2020 12:00:00 AM EST 1.0 {tablet} active Diflucan 150 MG eCW1 ([facility]) Fluconazole 150 MG Oral Tablet [Diflucan] Diflucan 150 MG Di flucan 150 MG 03/15/2020 12:00:00 AM EST 1.0 {tablet} active Diflucan 150 MG eCW1 ([facility]) 500 mg 03/15/2020 12:00:00 AM EST tablet 14 TAKE ONE TABLET BY MOUTH EVERY 12 HOURS FOR 7 DAYS TAKE ONE TABLET BY MOUTH EVERY 12 HOURS FOR 7 DAYS [facility] Fluconazole 150 MG Oral Tablet Fluconazole 150 MG 03/05/2020 12:00: 00 AM EST 1.0 {tablet} active Fluconazole 150 MG eCW1 ([facility]) Fluconazole 150 MG Oral Tablet Fluconazole 150 MG 03/05/2020 12:00: 00 AM EST 1.0 {tablet} suspended Fluconazole 150 M G eCW1 ([facility]) Ciprofloxacin 250 MG Oral Tablet Ciprofloxacin HCl 250 MG Ciprofloxacin HCl 250 MG 03/05/2020 12:00:00 AM EST 1.0 {tablet} activ e Ciprofloxacin HCl 250 MG eCW1 ([facility]) Fluconazole 150 MG Oral Tablet Fluconazole 150 MG 03/05/2020 12:00: 00 AM EST 1.0 {tablet} suspended Fluconazole 150 M G eCW1 ([facility]) Fluconazole 150 MG Oral Tablet Fluconazole 150 MG 03/05/2020 12:00: 00 AM EST 1.0 {tablet} suspended Fluconazole 150 M G eCW1 ([facility]) Fluconazole 150 MG Oral Tablet Fluconazole 150 MG 03/05/2020 12:00: 00 AM EST 1.0 {tablet} suspended Fluconazole 150 M G eCW1 ([facility]) Ciprofloxacin 250 MG Oral Tablet Ciprofloxacin HCl 250 MG Ciprofloxacin HCl 250 MG 03/05/2020 12:00:00 AM EST 1.0 {tablet} suspe nded Ciprofloxacin HCl 250 MG eCW1 ([facility]) Ciprofloxacin 250 MG Oral Tablet Ciprofloxacin HCl 250 MG Ciprofloxacin HCl 250 MG 03/05/2020 12:00:00 AM EST 1.0 {tablet} activ e Ciprofloxacin HCl 250 MG eCW1 ([facility]) Ciprofloxacin 250 MG Oral Tablet Ciprofloxacin HCl 250 MG Ciprofloxacin HCl 250 MG 03/05/2020 12:00:00 AM EST 1.0 {tablet} suspe nded Ciprofloxacin HCl 250 MG eCW1 ([facility]) Fluconazole 150 MG Oral Tablet Fluconazole 150 MG 03/05/2020 12:00: 00 AM EST 1.0 {tablet} active Fluconazole 150 MG eCW1 ([facility]) Fluconazole 150 MG Oral Tablet Fluconazole 150 MG 03/05/2020 12:00: 00 AM EST 1.0 {tablet} suspended Fluconazole 150 M G eCW1 ([facility]) Ciprofloxacin 250 MG Oral Tablet Ciprofloxacin HCl 250 MG Ciprofloxacin HCl 250 MG 03/05/2020 12:00:00 AM EST 1.0 {tablet} suspe nded Ciprofloxacin HCl 250 MG eCW1 ([facility]) 250 mg 03/05/2020 12:00:00 AM EST tablet 6 TAKE ONE TABLET BY MOUTH EVERY 12 HOURS TAKE ONE TABLET BY MOUTH EVERY 12 HOURS SOLD: 03/05/2020 [facility] Ciprofloxacin 250 MG Oral Tablet Ciprofloxacin HCl 250 MG Ciprofloxacin HCl 250 MG 03/05/2020 12:00:00 AM EST 1.0 {tablet} suspe nded Ciprofloxacin HCl 250 MG eCW1 ([facility]) 150 mg 03/05/2020 12:00:00 AM EST tablet 2 TAKE ONE TABLET BY MOUTH, REPEAT IN THREE DAYS TAKE ONE TABLET BY MOUTH, REPEAT IN THREE DAYS SOLD: 03/15/2020 [facility] Ciprofloxacin 250 MG Oral Tablet Ciprofloxacin HCl 250 MG Ciprofloxacin HCl 250 MG 03/05/2020 12:00:00 AM EST 1.0 {tablet} suspe nded Ciprofloxacin HCl 250 MG eCW1 ([facility]) 150 mg 03/05/2020 12:00:00 AM EST tablet 2 TAKE ONE TABLET BY MOUTH, REPEAT IN THREE DAYS TAKE ONE TABLET BY MOUTH, REPEAT IN THREE DAYS SOLD: 03/05/2020 [facility] 200 mg 01/20/2020 12:00:00 AM EDT capsule 90 TAKE ONE CAPSULE BY MOUTH THREE TIMES A DAY NEEDED TAKE ONE CAPSULE BY MOUTH THREE TIMES A DAY NEEDED SOLD: 01/24/2020 [facility] 2 ML Sodium Hyaluronate 10 MG/ML Prefilled Syringe [Euflexxa ] Euflexxa 01/09/2020 12:00:00 AM EDT active MEDENT ([facility] 10 mg 01/08/2020 12:00:00 AM EDT tablet 40 TAKE 4 TABLETS BY MOUTH ONCE DAILY FOR 4 DAYS THEN TAKE 3 TABLETS ONCE DAILY FOR 4 DAYS THEN TAKE 2 TABLETS ONCE DAILY FOR 4 DAYS THEN TAKE 1 TABLET ONCE DAILY FOR 4 DAYS AND STOP TAKE 4 TABLETS BY MOUTH ONCE DAILY FOR 4 DAYS THEN TAKE 3 TABLETS ONCE DAILY FOR 4 DAYS THEN TAKE 2 TABLETS ONCE DAILY FOR 4 DAYS THEN TAKE 1 TABLET ONCE DAILY FOR 4 DAYS AND STOP SOLD: 01/08/2020 [facility] Prednisone 10 MG Oral Tablet Prednisone 01/08/2020 12:00:00 AM EDT ORAL active MEDENT ([facility]) Acetaminophen 325 MG / Hydrocodone Bitartrate 5 MG Ora l Tablet Hydrocodone-Acetaminophen 01/05/2020 12:00:00 AM EDT active MEDENT ([facility]) 100,000 unit/mL 12/18/2019 12:00:00 AM EDT suspension 200 TAKE 5ML BY MOUTH FOUR TIMES A DAY TAKE 5ML BY MOUTH FOUR TIMES A DAY SOLD: 12/23/2019 [facility] 20 mg 11/19/2019 12:00:00 AM EDT tablet 8 TAKE ONE TABLET BY MOUTH TWICE A DAY FOR 5 DAYS TAKE ONE TABLET BY MOUTH TWICE A DAY FOR 5 DAYS SOLD: 2019 [facility] Prednisone 20 MG Oral Tablet Prednisone 11/19/2019 12:00:00 AM EDT completed MEDENT ([facility]) 100 mg 11/19/2019 12:00:00 AM EDT tablet 20 TAKE ONE TABLET BY MOUTH TWICE A DAY FOR 10 DAYS TAKE ONE TABLET BY MOUTH TWICE A DAY FOR 10 DAYS SOLD: 11/19/2019 [facility] Doxycycline Monohydrate 100 MG Oral Tablet Doxycycline Monoh ydrate 11/19/2019 12:00:00 AM EDT ORAL completed MEDENT ([facility]) 10 mg 10/29/2019 12:00:00 AM EDT tablet 12 TAKE TWO TABLETS BY MOUTH EVERY DAY FOR 4 DAYS THEN TAKE ONE TABLET ONCE DAILY FOR 4 DAYS TAKE TWO TABLETS BY MOUTH EVERY DAY FOR 4 DAYS THEN TAKE ONE TABLET ONCE DAILY FOR 4 DAYS SOLD: 10/29/2019 [facility] 250 mg 10/27/2019 12:00:00 AM EDT tablet 6 TAKE TWO TABLETS BY MOUTH AT ONCE ON THE FIRST DAY THEN TAKE ONE DAILY THEREAFTER TAKE TWO TABLETS BY MOUTH AT ONCE ON THE FIRST DAY THEN TAKE ONE DAILY THEREAFTER SOLD: 10/27/2019 [facility] Azithromycin 250 MG Oral Tablet Azithromycin 10/27/2019 12:00:00 AM E DT ORAL completed MEDENT ([facility], ) Prednisone 10 MG Oral Tablet Prednisone 10/27/2019 12:00:00 AM EDT ORAL completed MEDENT ([facility], ) benzonatate 200 MG Oral Capsule Benzonatate 10/22/2019 12:00:00 AM EDT ORAL active MEDENT ([facility], ) Prednisone 10 MG Oral Tablet Prednisone 10/22/2019 12:00:00 AM EDT completed MEDENT ([facility], ) 60 ACTUAT formoterol fumarate 0.005 MG/A CTUAT / mometasone furoate 0.2 MG/ACTUAT Metered Dose Inhaler [Dulera] Dulera 10/22/2019 12:00:00 AM EDT RESPIRATORY completed MEDENT ([facility], ) One Touch Delica 33 gauge UNK 09/19/2019 12:00:00 AM EDT active One Touch Delica 33 gauge eCW1 ([facility]) One Touch Delica 33 gauge UNK 09/19/2019 12:00:00 AM EDT active One Touch Delica 33 gauge eCW1 ([facility]) One Touch Delica 33 gauge UNK 09/19/2019 12:00:00 AM EDT active One Touch Delica 33 gauge eCW1 ([facility]) BLOOD SUGAR DIAGNOSTIC 09/19/2019 12:00:00 AM EDT strip 25 USE TO TEST DAILY USE TO TEST DAILY SOLD: 10/15/2019 [facility] BLOOD SUGAR DIAGNOSTIC 09/19/2019 12:00:00 AM EDT strip 25 USE TO TEST DAILY USE TO TEST DAILY SOLD: 09/19/2019 [facility] BLOOD-GLUCOSE METER 09/19/2019 12:00:00 AM EDT misc 1 USE DIRECTED USE DIRECTED SOLD: 09/19/2019 [facility] One Touch Delica 33 gauge UNK 09/19/2019 12:00:00 AM EDT active One Touch Delica 33 gauge eCW1 ([facility]) 33 gauge 09/19/2019 12:00:00 AM EDT misc 100 TEST DIRECTED TEST DIRECTED SOLD: 10/24/2019 [facility] One Touch Delica 33 gauge UNK 09/19/2019 12:00:00 AM EDT active One Touch Delica 33 gauge eCW1 ([facility]) One Touch Delica 33 gauge UNK 09/19/2019 12:00:00 AM EDT active One Touch Delica 33 gauge eCW1 ([facility]) One Touch Delica 33 gauge UNK 09/19/2019 12:00:00 AM EDT active One Touch Delica 33 gauge eCW1 ([facility]) One Touch Delica 33 gauge UNK 09/19/2019 12:00:00 AM EDT active One Touch Delica 33 gauge eCW1 ([facility]) One Touch Delica 33 gauge UNK 09/19/2019 12:00:00 AM EDT active One Touch Delica 33 gauge eCW1 ([facility]) One Touch Delica 33 gauge UNK 09/19/2019 12:00:00 AM EDT active One Touch Delica 33 gauge eCW1 ([facility]) 33 gauge 09/19/2019 12:00:00 AM EDT misc 100 TEST DIRECTED TEST DIRECTED SOLD: 09/21/2019 [facility] One Touch Delica 33 gauge UNK 09/19/2019 12:00:00 AM EDT active One Touch Delica 33 gauge eCW1 ([facility]) OneTouch Verio w/Device OneTouch Verio w/Device 09/18/2019 12:00:00 A M EDT active OneTouch Verio w/Dev ice eCW1 ([facility]) OneTouch Verio - OneTouch Verio - 09/18/2019 12:00:00 AM EDT active OneTouch Verio - eCW1 ([facility]) OneTouch Verio - OneTouch Verio - 09/18/2019 12:00:00 AM EDT active OneTouch Verio - eCW1 ([facility]) OneTouch Verio w/Device OneTouch Verio w/Device 09/18/2019 12:00:00 A M EDT active OneTouch Verio w/Dev ice eCW1 ([facility]) OneTouch Verio w/Device OneTouch Verio w/Device 09/18/2019 12:00:00 A M EDT active OneTouch Verio w/Dev ice eCW1 ([facility]) OneTouch Verio w/Device OneTouch Verio w/Device 09/18/2019 12:00:00 A M EDT active OneTouch Verio w/Dev ice eCW1 ([facility]) OneTouch Verio - OneTouch Verio - 09/18/2019 12:00:00 AM EDT active OneTouch Verio - eCW1 ([facility]) OneTouch Verio w/Device OneTouch Verio w/Device 09/18/2019 12:00:00 A M EDT active OneTouch Verio w/Dev ice eCW1 ([facility]) OneTouch Verio - OneTouch Verio - 09/18/2019 12:00:00 AM EDT active OneTouch Verio - eCW1 ([facility]) OneTouch Verio w/Device OneTouch Verio w/Device 09/18/2019 12:00:00 A M EDT active OneTouch Verio w/Dev ice eCW1 ([facility]) OneTouch Verio - OneTouch Verio - 09/18/2019 12:00:00 AM EDT active OneTouch Verio - eCW1 ([facility]) OneTouch Verio w/Device OneTouch Verio w/Device 09/18/2019 12:00:00 A M EDT active OneTouch Verio w/Dev ice eCW1 ([facility]) OneTouch Verio w/Device OneTouch Verio w/Device 09/18/2019 12:00:00 A M EDT active OneTouch Verio w/Dev ice eCW1 ([facility]) OneTouch Verio w/Device OneTouch Verio w/Device 09/18/2019 12:00:00 A M EDT active OneTouch Verio w/Dev ice eCW1 ([facility]) OneTouch Verio - OneTouch Verio - 09/18/2019 12:00:00 AM EDT active OneTouch Verio - eCW1 ([facility]) OneTouch Verio w/Device OneTouch Verio w/Device 09/18/2019 12:00:00 A M EDT active OneTouch Verio w/Dev ice eCW1 ([facility]) OneTouch Verio - OneTouch Verio - 09/18/2019 12:00:00 AM EDT active OneTouch Verio - eCW1 ([facility]) OneTouch Verio - OneTouch Verio - 09/18/2019 12:00:00 AM EDT active OneTouch Verio - eCW1 ([facility]) OneTouch Verio w/Device OneTouch Verio w/Device 09/18/2019 12:00:00 A M EDT active OneTouch Verio w/Dev ice eCW1 ([facility]) OneTouch Verio - OneTouch Verio - 09/18/2019 12:00:00 AM EDT active OneTouch Verio - eCW1 ([facility]) OneTouch Verio - OneTouch Verio - 09/18/2019 12:00:00 AM EDT active OneTouch Verio - eCW1 ([facility]) OneTouch Verio - OneTouch Verio - 09/18/2019 12:00:00 AM EDT active OneTouch Verio - eCW1 ([facility]) 200 ACTUAT Levalbuterol 0.045 MG/ACTUAT Metered Dose I nhaler Levalbuterol Tartrate 09/15/2019 12:00:00 AM EDT RESPIRATORY active MEDENT ([facility], ) 0.625 mg/gram 08/28/2019 12:00:00 AM EDT cream 30 INSERT 1/2 GRAM TWICE A WEEK AT BEDTIME VAGINALLY INSERT 1/2 GRAM TWICE A WEEK AT BEDTIME VAGINALLY SOLD: 04/09/2020 [facility] 0.625 mg/gram 08/28/2019 12:00:00 AM EDT cream 30 INSERT 1/2 GRAM TWICE A WEEK AT BEDTIME VAGINALLY INSERT 1/2 GRAM TWICE A WEEK AT BEDTIME VAGINALLY SOLD: 09/04/2019 [facility] Estrogens, Conjugated (MCC) 0.625 MG/ML Vaginal Cream [Premarin] Premarin 0.625 MG/GM Premarin 0.625 MG/GM 08/27/2019 12:00:00 AM EDT active Premarin 0.625 MG/GM eCW1 ([facility]) Estrogens, Conjugated (MCC) 0.625 MG/ML Vaginal Cream [Premarin] Premarin 0.625 MG/GM Premarin 0.625 MG/GM 08/27/2019 12:00:00 AM EDT suspended Premarin 0.625 MG/GM eCW1 ([facility]) Estrogens, Conjugated (MCC) 0.625 MG/ML Vaginal Cream [Premarin] Premarin 0.625 MG/GM Premarin 0.625 MG/GM 08/27/2019 12:00:00 AM EDT suspended Premarin 0.625 MG/GM eCW1 ([facility]) Estrogens, Conjugated (MCC) 0.625 MG/ML Vaginal Cream [Premarin] Premarin 0.625 MG/GM Premarin 0.625 MG/GM 08/27/2019 12:00:00 AM EDT suspended Premarin 0.625 MG/GM eCW1 ([facility]) Estrogens, Conjugated (MCC) 0.625 MG/ML Vaginal Cream [Premarin] Premarin 0.625 MG/GM Premarin 0.625 MG/GM 08/27/2019 12:00:00 AM EDT active Premarin 0.625 MG/GM eCW1 ([facility]) Estrogens, Conjugated (MCC) 0.625 MG/ML Vaginal Cream [Premarin] Premarin 0.625 MG/GM Premarin 0.625 MG/GM 08/27/2019 12:00:00 AM EDT active Premarin 0.625 MG/GM eCW1 ([facility]) Estrogens, Conjugated (MCC) 0.625 MG/ML Vaginal Cream [Premarin] Premarin 0.625 MG/GM Premarin 0.625 MG/GM 08/27/2019 12:00:00 AM EDT active Premarin 0.625 MG/GM eCW1 ([facility]) Estrogens, Conjugated (MCC) 0.625 MG/ML Vaginal Cream [Premarin] Premarin 0.625 MG/GM Premarin 0.625 MG/GM 08/27/2019 12:00:00 AM EDT suspended Premarin 0.625 MG/GM eCW1 ([facility]) Estrogens, Conjugated (MCC) 0.625 MG/ML Vaginal Cream [Premarin] Premarin 0.625 MG/GM Premarin 0.625 MG/GM 08/27/2019 12:00:00 AM EDT suspended Premarin 0.625 MG/GM eCW1 ([facility]) Estrogens, Conjugated (MCC) 0.625 MG/ML Vaginal Cream [Premarin] Premarin 0.625 MG/GM Premarin 0.625 MG/GM 08/27/2019 12:00:00 AM EDT active Premarin 0.625 MG/GM eCW1 ([facility]) Estrogens, Conjugated (MCC) 0.625 MG/ML Vaginal Cream [Premarin] Premarin 0.625 MG/GM Premarin 0.625 MG/GM 08/27/2019 12:00:00 AM EDT active Premarin 0.625 MG/GM eCW1 ([facility]) Estrogens, Conjugated (MCC) 0.625 MG/ML Vaginal Cream [Premarin] Premarin 0.625 MG/GM Premarin 0.625 MG/GM 08/27/2019 12:00:00 AM EDT active Premarin 0.625 MG/GM eCW1 ([facility]) Estrogens, Conjugated (MCC) 0.625 MG/ML Vaginal Cream [Premarin] Premarin 0.625 MG/GM Premarin 0.625 MG/GM 08/27/2019 12:00:00 AM EDT suspended Premarin 0.625 MG/GM eCW1 ([facility]) Estrogens, Conjugated (MCC) 0.625 MG/ML Vaginal Cream [Premarin] Premarin 0.625 MG/GM Premarin 0.625 MG/GM 08/27/2019 12:00:00 AM EDT suspended Premarin 0.625 MG/GM eCW1 ([facility]) 137 mcg (0.1 %) 08/08/2019 12:00:00 AM EDT aerosol,spray 30 USE 2 SPRAYS IN EACH NOSTRIL EVERY MORNING USE 2 SPRAYS IN EACH NOSTRIL EVERY MORNING SOLD: 10/21/2019 [facility] 137 mcg (0.1 %) 08/08/2019 12:00:00 AM EDT aerosol,spray 30 USE 2 SPRAYS IN EACH NOSTRIL EVERY MORNING USE 2 SPRAYS IN EACH NOSTRIL EVERY MORNING SOLD: 08/08/2019 [facility] 137 mcg (0.1 %) 08/08/2019 12:00:00 AM EDT aerosol,spray 30 USE 2 SPRAYS IN EACH NOSTRIL EVERY MORNING USE 2 SPRAYS IN EACH NOSTRIL EVERY MORNING SOLD: 04/09/2020 [facility] Azelastine HCL (Nasal) Azelastine HCL (Nasal) 08/07/2019 12:00:00 AM E DT active MEDENT ([facility] 15 mg 07/29/2019 12:00:00 AM EDT tablet 30 TAKE ONE TABLET BY MOUTH EVERY DAY TAKE ONE TABLET BY MOUTH EVERY DAY SOLD: 07/30/2019 [facility] 15 mg 07/29/2019 12:00:00 AM EDT tablet 30 TAKE ONE TABLET BY MOUTH EVERY DAY TAKE ONE TABLET BY MOUTH EVERY DAY SOLD: 04/09/2020 [facility] 2.5 mg /3 mL (0.083 %) 07/23/2019 12:00:00 AM EDT solu tion for nebulization 300 INHALE THE CONTENTS OF ONE VIAL VIA NEBU LIZER FOUR TIMES A DAY NEEDED INHALE THE CONTENTS OF ONE VIAL VIA NEBULIZER FOUR TIMES A DAY NEEDED SOLD: 08/20/2019 [facility] . UNIT 07/23/2019 12:00:00 AM EDT Misc 2 DI RECTED DIRECTED SOLD: 10/21/2019 [facility] Nebulizer Kit/Tubing/Mouthpiece 07/23/2019 12:00:00 AM EDT active MEDENT ([facility], ) . UNIT 07/23/2019 12:00:00 AM EDT Misc 2 DI RECTED DIRECTED SOLD: 07/24/2019 [facility] Albuterol 0.83 MG/ML Inhalant Solution Albuterol Sulfate 0 07/23/2019 12:00:00 AM EDT active MEDENT ([facility], ) 2.5 mg /3 mL (0.083 %) 07/23/2019 12:00:00 AM EDT solu tion for nebulization 300 INHALE THE CONTENTS OF ONE VIAL VIA NEBU LIZER FOUR TIMES A DAY NEEDED INHALE THE CONTENTS OF ONE VIAL VIA NEBULIZER FOUR TIMES A DAY NEEDED SOLD: 07/24/2019 [facility] Ketorolac Tromethamine 4 MG/ML Ophthalmic Solution Ket orolac Tromethamine 0.4 % Ketorolac Tromethamine 0.4 % 07/18/2019 12:00:00 AM EDT 1.0 {drop_into_affected_eye} suspended Ketor olac Tromethamine 0.4 % eCW1 ([facility]) Ketorolac Tromethamine 4 MG/ML Ophthalmic Solution Ket orolac Tromethamine 0.4 % Ketorolac Tromethamine 0.4 % 07/18/2019 12:00:00 AM EDT 1.0 {drop_into_affected_eye} suspended Ketor olac Tromethamine 0.4 % eCW1 ([facility]) Ketorolac Tromethamine 4 MG/ML Ophthalmic Solution Ket orolac Tromethamine 0.4 % Ketorolac Tromethamine 0.4 % 07/18/2019 12:00:00 AM EDT 1.0 {drop_into_affected_eye} suspended Ketor olac Tromethamine 0.4 % eCW1 ([facility]) Ketorolac Tromethamine 4 MG/ML Ophthalmic Solution Ket orolac Tromethamine 0.4 % Ketorolac Tromethamine 0.4 % 07/18/2019 12:00:00 AM EDT active 1 drop into affected eye eCW1 ([facility]) 0.4 % 07/18/2019 12:00:00 AM EDT drops 5 INSTILL ONE DROP INTO AFFECTED EYE FOUR TIMES A DAY FOR 4 DAYS INSTILL ONE DROP INTO AFFECTED EYE FOUR TIMES A DAY FOR 4 DAYS SOLD: 07/18/2019 [facility] 0.4 % 07/18/2019 12:00:00 AM EDT drops 5 INSTILL ONE DROP INTO AFFECTED EYE FOUR TIMES A DAY FOR 4 DAYS INSTILL ONE DROP INTO AFFECTED EYE FOUR TIMES A DAY FOR 4 DAYS SOLD: 08/08/2019 [facility] 2.5 % 05/29/2019 12:00:00 AM EST cream with perineal suzan licator 30 APPLY TO RECTUM TWO TIMES A DAY TO THREE TIMES A DAY NEEDED FOR RECTAL BLEEDING APPLY TO RECTUM TWO TIMES A DAY TO THREE TIMES A DAY NEEDED FOR RECTAL BLEEDING SOLD: 05/30/2019 [facility] 2.5 % 05/29/2019 12:00:00 AM EST cream with perineal suzan licator 30 APPLY TO RECTUM TWO TIMES A DAY TO THREE TIMES A DAY NEEDED FOR RECTAL BLEEDING APPLY TO RECTUM TWO TIMES A DAY TO THREE TIMES A DAY NEEDED FOR RECTAL BLEEDING SOLD: 08/20/2019 [facility] 2.5 % 05/29/2019 12:00:00 AM EST cream with perineal suzan licator 28 APPLY TO RECTUM TWO TIMES A DAY TO THREE TIMES A DAY NEEDED FOR RECTAL BLEEDING APPLY TO RECTUM TWO TIMES A DAY TO THREE TIMES A DAY NEEDED FOR RECTAL BLEEDING SOLD: 04/09/2020 [facility] Hydrocortisone 25 MG/ML Topical Cream [Anusol HC] Anusol-HC 05/29/2019 12:00:00 AM EST active MEDENT ([facility]) 50 mg 05/01/2019 12:00:00 AM EST tablet 7 TAKE ONE TABLET BY MOUTH AT BEDTIME FOR COUGH MAXIMUM DAILY DOSE = 1 TABLET TAKE ONE TABLET BY MOUTH AT BEDTIME FOR COUGH MAXIMUM DAILY DOSE = 1 TABLET SOLD: 05/01/2019 [facility] tramadol hydrochloride 50 MG Oral Tablet Tramadol HCL 05/01/2019 12:00:00 AM EST ORAL completed MEDENT ([facility], ) Ciprofloxacin 500 MG Oral Tablet [Cipro] Cipro 05/01/2019 12:00: 00 AM EST ORAL completed MEDENT ([facility], ) tramadol hydrochloride 50 MG Oral Tablet Tramadol HCL 04/30/2019 12:00:00 AM EST ORAL completed MEDENT ([facility], ) benzonatate 200 MG Oral Capsule Benzonatate 200 MG Benzonata te 200 MG 04/30/2019 12:00:00 AM EST 1.0 {capsule} active Benzonatate 200 MG eCW1 ([facility]) Metformin hydrochloride 500 MG Oral Tablet Metformin H Cl 500 MG Metformin HCl 500 MG 04/30/2019 12:00:00 AM EST active Metformin HCl 500 MG eCW1 ([facility]) Metformin hydrochloride 500 MG Oral Tablet Metformin H Cl 500 MG Metformin HCl 500 MG 04/30/2019 12:00:00 AM EST active Metformin HCl 500 MG eCW1 ([facility]) benzonatate 200 MG Oral Capsule Benzonatate 200 MG Benzonata te 200 MG 04/30/2019 12:00:00 AM EST 1.0 {capsule} active Benzonatate 200 MG eCW1 ([facility]) benzonatate 200 MG Oral Capsule Benzonatate 200 MG Benzonata te 200 MG 04/30/2019 12:00:00 AM EST 1.0 {capsule} active Benzonatate 200 MG eCW1 ([facility]) Metformin hydrochloride 500 MG Oral Tablet Metformin H Cl 500 MG Metformin HCl 500 MG 04/30/2019 12:00:00 AM EST active Metformin HCl 500 MG eCW1 ([facility]) Metformin hydrochloride 500 MG Oral Tablet Metformin H Cl 500 MG Metformin HCl 500 MG 04/30/2019 12:00:00 AM EST active 2 tabs with meals, bid eCW1 ([facility]) Clarithromycin 500 MG Oral Tablet [Biaxin] Biaxin 04/30/2019 12:00:00 AM EST ORAL completed MEDENT ([facility], ) benzonatate 200 MG Oral Capsule Benzonatate 200 MG Benzonata te 200 MG 04/30/2019 12:00:00 AM EST active 1 capsu le eCW1 ([facility]) Metformin hydrochloride 500 MG Oral Tablet Metformin H Cl 500 MG Metformin HCl 500 MG 04/30/2019 12:00:00 AM EST active Metformin HCl 500 MG eCW1 ([facility]) Metformin hydrochloride 500 MG Oral Tablet Metformin H Cl 500 MG Metformin HCl 500 MG 04/30/2019 12:00:00 AM EST active Metformin HCl 500 MG eCW1 ([facility]) Metformin hydrochloride 500 MG Oral Tablet Metformin H Cl 500 MG Metformin HCl 500 MG 04/30/2019 12:00:00 AM EST active Metformin HCl 500 MG eCW1 ([facility]) Metformin hydrochloride 500 MG Oral Tablet Metformin H Cl 500 MG Metformin HCl 500 MG 04/30/2019 12:00:00 AM EST active 1tab AM 2 tabs PM eCW1 ([facility]) benzonatate 200 MG Oral Capsule Benzonatate 200 MG Benzonata te 200 MG 04/30/2019 12:00:00 AM EST active 1 capsu le eCW1 ([facility]) benzonatate 200 MG Oral Capsule Benzonatate 200 MG Benzonata te 200 MG 04/30/2019 12:00:00 AM EST 1.0 {capsule} active Benzonatate 200 MG eCW1 ([facility]) Metformin hydrochloride 500 MG Oral Tablet Metformin H Cl 500 MG Metformin HCl 500 MG 04/30/2019 12:00:00 AM EST active 1tab AM 2 tabs PM eCW1 ([facility]) Metformin hydrochloride 500 MG Oral Tablet Metformin H Cl 500 MG Metformin HCl 500 MG 04/30/2019 12:00:00 AM EST active Metformin HCl 500 MG eCW1 ([facility]) Metformin hydrochloride 500 MG Oral Tablet Metformin H Cl 500 MG Metformin HCl 500 MG 04/30/2019 12:00:00 AM EST active 2 tablet with a meal eCW1 ([facility]) benzonatate 200 MG Oral Capsule Benzonatate 200 MG Benzonata te 200 MG 04/30/2019 12:00:00 AM EST active 1 capsu le eCW1 ([facility]) Metformin hydrochloride 500 MG Oral Tablet Metformin H Cl 500 MG Metformin HCl 500 MG 04/30/2019 12:00:00 AM EST active 2 tablet with a meal eCW1 ([facility]) Metformin hydrochloride 500 MG Oral Tablet Metformin H Cl 500 MG Metformin HCl 500 MG 04/30/2019 12:00:00 AM EST active Metformin HCl 500 MG eCW1 ([facility]) Metformin hydrochloride 500 MG Oral Tablet Metformin H Cl 500 MG Metformin HCl 500 MG 04/30/2019 12:00:00 AM EST active Metformin HCl 500 MG eCW1 ([facility]) benzonatate 200 MG Oral Capsule Benzonatate 200 MG Benzonata te 200 MG 04/30/2019 12:00:00 AM EST 1.0 {capsule} active Benzonatate 200 MG eCW1 ([facility]) Metformin hydrochloride 500 MG Oral Tablet Metformin H Cl 500 MG Metformin HCl 500 MG 04/30/2019 12:00:00 AM EST active Metformin HCl 500 MG eCW1 ([facility]) Metformin hydrochloride 500 MG Oral Tablet Metformin H Cl 500 MG Metformin HCl 500 MG 04/30/2019 12:00:00 AM EST active Metformin HCl 500 MG eCW1 ([facility]) Metformin hydrochloride 500 MG Oral Tablet Metformin H Cl 500 MG Metformin HCl 500 MG 04/30/2019 12:00:00 AM EST active Metformin HCl 500 MG eCW1 ([facility]) benzonatate 200 MG Oral Capsule BENZONATATE 04/30/2019 12:00:00 AM EST capsule 90 TAKE ONE CAPSULE BY MOUTH THREE TIMES A DAY NEEDED TAKE ONE CAPSULE BY MOUTH THREE TIMES A DAY NEEDED SOLD: 05/01/2019 [facility] Metformin hydrochloride 500 MG Oral Tablet Metformin H Cl 500 MG Metformin HCl 500 MG 04/30/2019 12:00:00 AM EST active Metformin HCl 500 MG eCW1 ([facility]) 500 mg 04/30/2019 12:00:00 AM EST tablet 120 TAKE TWO TABLETS BY MOUTH TWICE A DAY WITH A MEAL, TITRATING DIRECTED TAKE TWO TABLETS BY MOUTH TWICE A DAY WITH A MEAL, TITRATING DIRECTED SOLD: 06/20/2019 [facility] benzonatate 200 MG Oral Capsule Benzonatate 200 MG Benzonata te 200 MG 04/30/2019 12:00:00 AM EST 1.0 {capsule} active Benzonatate 200 MG eCW1 ([facility]) 200 mg 04/30/2019 12:00:00 AM EST capsule 90 TAKE ONE CAPSULE BY MOUTH THREE TIMES A DAY NEEDED TAKE ONE CAPSULE BY MOUTH THREE TIMES A DAY NEEDED SOLD: 12/26/2019 [facility] Metformin hydrochloride 500 MG Oral Tablet Metformin H Cl 500 MG Metformin HCl 500 MG 04/30/2019 12:00:00 AM EST active Metformin HCl 500 MG eCW1 ([facility]) 500 mg 04/30/2019 12:00:00 AM EST tablet 120 TAKE TWO TABLETS BY MOUTH TWICE A DAY WITH A MEAL, TITRATING DIRECTED TAKE TWO TABLETS BY MOUTH TWICE A DAY WITH A MEAL, TITRATING DIRECTED SOLD: 05/01/2019 [facility] 10 mg 04/28/2019 12:00:00 AM EST tablet 15 TAKE TWO TABLETS BY MOUTH EVERY DAY FOR 5 DAYS, THEN TAKE ONE TABLET ONCE DAILY FOR 5 DAYS TAKE TWO TABLETS BY MOUTH EVERY DAY FOR 5 DAYS, THEN TAKE ONE TABLET ONCE DAILY FOR 5 DAYS SOLD: 04/30/2019 [facility] Clarithromycin 500 MG Oral Tablet [Biaxin] Biaxin 04/17/2019 12:00:00 AM EST ORAL active [facility] 500 mg 04/17/2019 12:00:00 AM EST tablet 20 TAKE ONE TABLET BY MOUTH TWICE A DAY FOR 10 DAYS TAKE ONE TABLET BY MOUTH TWICE A DAY FOR 10 DAYS SOLD: 04/17/2019 [facility] 10 mg 04/08/2019 12:00:00 AM EST tablet 50 TAKE 4 TABLETS BY MOUTH EVERY DAY FOR 5 DAYS, THEN TAKE 3 TABLETS ONCE DAILY FOR 5 DAYS, THEN TAKE 2 TABLETS ONCE DAILY FOR 5 DAYS, THEN TAKE 1 TABLET ONCE DAILY FOR 5 DAYS THEN STOP TAKE 4 TABLETS BY MOUTH EVERY DAY FOR 5 DAYS, THEN TAKE 3 TABLETS ONCE DAILY FOR 5 DAYS, THEN TAKE 2 TABLETS ONCE DAILY FOR 5 DAYS, THEN TAKE 1 TABLET ONCE DAILY FOR 5 DAYS THEN STOP SOLD: 04/08/2019 [facility] Prednisone 10 MG Oral Tablet Prednisone 04/08/2019 12:00:00 AM EST ORAL active [facility] ([facility] Prednisone 20 MG Oral Tablet PredniSONE 20 MG PredniSONE 20 MG 04/04/2019 12:00:00 AM EST active 2 tablet s eCW1 ([facility]) benzonatate 200 MG Oral Capsule Benzonatate 200 MG Benzonata te 200 MG 04/04/2019 12:00:00 AM EST active 1 capsu le as needed for cough eCW1 ([facility]) benzonatate 200 MG Oral Capsule BENZONATATE 04/04/2019 12:00:00 AM EST capsule 15 TAKE ONE CAPSULE BY MOUTH THREE TIMES A DAY FOR 5 DAYS TAKE ONE CAPSULE BY MOUTH THREE TIMES A DAY FOR 5 DAYS SOLD: 04/04/2019 [facility] 20 mg 04/04/2019 12:00:00 AM EST tablet 10 TAKE TWO TABLETS BY MOUTH EVERY DAY FOR 5 DAYS TAKE TWO TABLETS BY MOUTH EVERY DAY FOR 5 DAYS SOLD: 020 [facility] 250 mg 03/24/2019 12:00:00 AM EST tablet 6 TAKE TWO TABLETS BY MOUTH AT ONCE ON THE FIRST DAY THEN TAKE ONE DAILY THEREAFTER TAKE TWO TABLETS BY MOUTH AT ONCE ON THE FIRST DAY THEN TAKE ONE DAILY THEREAFTER SOLD: 03/24/2019 [facility] Azithromycin 250 MG Oral Tablet Azithromycin 250 MG 03/24/2019 1 2:00:00 AM EST active 2 tablets x1 day , then 1 tablet x4 days eCW1 ([facility]) PredniSONE 10 MG PredniSONE 10 MG 03/20/2019 12:00:00 AM EST active 4 tablets daily x 7 days, then 3 daily x 3 days, then 2 daily x 3 days, then 1 daily x 3 days eCW1 ([facility]) PredniSONE 10 MG PredniSONE 10 MG 03/20/2019 12:00:00 AM EST active 4 tablets daily x 7 days, then 3 daily x 3 days, then 2 daily x 3 days, then 1 daily x 3 days eCW1 ([facility]) 10 mg 03/20/2019 12:00:00 AM EST tablet 46 TAKE FOUR TABLETS BY MOUTH EVERY DAY FOR 7 DAYS, THEN 3 TABLETS ONCE DAILY FOR 3 DAYS, THEN 2 TABLETS ONCE DAILY FOR 3 DAYS THEN 1 TABLET BY MOUTH ONCE DAILY FOR 3 DAYS TAKE FOUR TABLETS BY MOUTH EVERY DAY FOR 7 DAYS, THEN 3 TABLETS ONCE DAILY FOR 3 DAYS, THEN 2 TABLETS ONCE DAILY FOR 3 DAYS THEN 1 TABLET BY MOUTH ONCE DAILY FOR 3 DAYS SOLD: 03/20/2019 [facility] Levofloxacin 750 MG Oral Tablet [Levaquin] Levaquin 750 MG L evaquin 750 MG 03/20/2019 12:00:00 AM EST active 1 tablet eCW1 ([facility]) Levofloxacin 750 MG Oral Tablet [Levaquin] Levaquin 750 MG L evaquin 750 MG 03/20/2019 12:00:00 AM EST active 1 tablet eCW1 ([facility]) 750 mg 03/20/2019 12:00:00 AM EST tablet 7 TAKE ONE TABLET BY MOUTH EVERY DAY TAKE ONE TABLET BY MOUTH EVERY DAY SOLD: 03/20/2019 [facility] 20 mg 03/08/2019 12:00:00 AM EST tablet 4 TAKE ONE TABLET BY MOUTH TWICE A DAY FOR 2 DAYS TAKE ONE TABLET BY MOUTH TWICE A DAY FOR 2 DAYS SOLD: 2018 [facility] 250 mg 03/07/2019 12:00:00 AM EST tablet 6 TAKE TWO TABLETS BY MOUTH AT ONCE ON THE FIRST DAY THEN TAKE ONE DAILY THEREAFTER TAKE TWO TABLETS BY MOUTH AT ONCE ON THE FIRST DAY THEN TAKE ONE DAILY THEREAFTER SOLD: 03/08/2019 [facility] 2.5 mg /3 mL (0.083 %) 03/04/2019 12:00:00 AM EST solu tion for nebulization 75 INHALE ONE VIAL VIA NEBULIZE R EVERY 4 TO 6 HOURS NEEDED FOR SHORTNESS OF BREATH/WHEEZING INHALE ONE VIAL VIA NEBULIZER EVERY 4 TO 6 HOURS NEEDED FOR SHORTNESS OF BREATH/WHEEZING SOLD: 03/08/2019 [facility] Azithromycin 250 MG Oral Tablet Azithromycin 12/26/2018 12:00:00 AM E DT ORAL completed [facility] ([facility] Insurance Providers Payer name Policy type / Coverage type Policy ID Covered republican ID Covered republican's relationship to dejesus Policy Dejesus Plan Information [facility] [id number] SP [id number] UMR O [id number] S [id number] UMR [id number] S [id number] [facility] [id number] S [id number] [employer] [place] Other 0 Self 0 [employer] [place] Other 0 Self 0 [facility] [id number] SP [id number] [employer] [id number] [facility] [place] [id number] Self [id number] [facility] Commercial [id number] Self [id number] [facility] Part B [id number] Self [id number] ANSI-Commercial [id number]-5087-[id number] ANSI-Commercial [id number]-[id number]-9124-75689hz30eit [id number]-q357-639d-2890-87073uf79gfs ANSI-Commercial [id number]-r103-0mn6-f8ew-ol8b57e6u2gh 6g387d71-z456-1cr9-l7zr-ez2k23y8e1he ANSI-Commercial [id number]-[id number] ANSI-Commercial [id number]-9pg0-84pi-[id number]-3xr0-42do-a7604fm411o6 ANSI-Commercial zi780lg0-6z22-1336-75g1-b35fz4lgp88q ad770rk8-4k28-0516-32t6-c76wn4hfz70w [employer] [place] Other 0 Self 0 [employer] [place] Other 0 Self 0 ANSI-Commercial [id number]-[id number] [id number]-guj5s6f3rfbp ANSI-Commercial [id number]-[id number] 83g0pt07-[id number] ANSI-Commercial b61yd41n-251t-908x-tst2-3ji4u6o55g51 r36ve13c-017o-444u-vfk9-6ml3b4t03y32 ANSI-Commercial [id number]-d899-3o63-s6q4-4il42pywf815 0i1ozc56-j372-4b93-r9v1-8if97qbeb070 ANSI-Commercial 64lb8s68-5671-956n-[id number] 40ga2y33-7282-818p-gv80-98u9559pg11n [facility] ([facility]) [id number] Self [id number] ANSI-Commercial [id number]-[id number]-[id number] ANSI-Commercial [id number]-[id number]-whe6-84rxh3n388um ANSI-Commercial 1s7w5u9u-f9r6-5hlw-9705-[id number] 5d2i6s2w-w0c4-8yia-3722-[id number] ANSI-Commercial rp637ru2-1pha-485p-a5fh-h10v8njh9vst tr939uj2-5drl-539b-c1lk-r54s5uet6qky ANSI-Commercial [id number]-s579-084a-m7ib-0383o9j43f4t [id number]-x497-666w-u1ae-3504k6l12v7z ANSI-Commercial 2058gv53-f68r-6c70-bi20-[id number] 3198cw77-h41w-1b85-or46-[id number] [facility] [id number] SP [id number] ANSI-Commercial [id number]-74f7-0153-667w-g69lzas5r82s 21y55xqg-82l8-7483-069n-v88koub2n17s ANSI-Commercial 3he0v558-78i1-0j10-z3w3-50t38kfw2s2i 6vn4c387-29b1-7r58-y9m8-23m27enw6a9i ANSI-Commercial s59h4c97-076i-26e4-mr0l-4981j8d5j6c3 z81a3e43-952q-15o3-pr7r-6588n5r8s9f9 ANSI-Commercial [id number]-248q-5gr0x0xp0x2s [id number]-572q-1iu6y0tg1p7z ANSI-Commercial [id number]-46y7-1fs9-m624-9xi86q6m7m35 4l69x47y-55l5-4vp5-p274-7lv60t7g6t41 ANSI-Commercial 8619skc0-8s19-576h-33g9-967g19qu49d4 8846neq4-0u00-169s-09u2-642o70lr73l9 ANSI-Commercial [id number]tm5jg80538 ANSI-Commercial [id number]-880l-[id number] q859r398-4vr8-628d-175x-3bew115y9086 ANSI-Commercial [id number]-[id number]-[id number] ANSI-Commercial [id number]-4536-8wl2-6p96-a1ieyce71227 [id number]-5753-0fw9-5q35-r4mkard69337 ANSI-Commercial 723vq09s-ue1c-9793-3v1p-[id number] 717xx33g-hq2f-0774-7b2q-cgy6mu28571a ANSI-Commercial tz85ce97-w4no-475a-xs5i-1u66gr72w1h4 jc76am77-k3br-467z-nt5i-8y40ml80r1c8 [employer] [place] Other 0 Self 0 [employer] [place] Other 0 Self 0 [employer] [place] Other 0 Self 0 ANSI-Commercial [id number] ANSI-Commercial [id number]-[id number]-[id number] 5q06g4sw-9470-5896-m8c1-[id number] ANSI-Commercial [id number]-e67v-[id number]-990w-s14i-b78a0nu3u8l8 ANSI-Commercial [id number]-1f33-428u-69wk-[id number] 5d69yh6y-0c57-253q-40iu-558035a2t4b6 ANSI-Commercial 2fuenu0t-7708-5207-x60c-65ll55lkb22s 2xqkef7q-2392-8858-r21f-91zs26ikx99d ANSI-Commercial [id number]-b7gf-16hr-[id number] 304l1970-d3zj-72nm-5250-[id number] ANSI-Commercial [id number]-0208-[id number] 84d3a639-938s-3664-d425-47gm679kg8sn ANSI-Commercial 50524g06-z3c0-8abe-s7jd-17d641qoa33u [id number]-y1i9-8ayv-u3vg-00c181rjw93r ANSI-Commercial [id number]-[id number]-68fc-[id number] R [facility] [id number] SP [id number] [employer] Commercial [id number] Self [id number] [employer] Commercial [id number] Self [id number] ANSI-Commercial [id number]-[id number]-[id number]-d2nm-[id number] ANSI-Commercial ru24h23v-0k80-5v3f-ua40-[id number]-1s35-6b8w-lu96-[id number] R [id number] S [id number] ANSI-Commercial [id number]-3r4d-56kp-vr63-98026i28kq7b [id number]-2s8i-09ua-cz63-07696x29sg4v ANSI-Commercial 6nm6s585-v49r-789c-395f-[id number] [id number]-f33l-793b-228x-[id number] ANSI-Commercial [id number]-e644-5u2x-[id number] 759o2o05-b224-1w7z-8u73-3470u28l768c ANSI-Commercial 21500omt-[id number]-088v-3545-6578-4f223sikvx32 R [id number] S [id number] UMR .[id number] 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 .[id number] [employer] ..[id number] Commercial Ins urance Co. .[id number] [employer] [id number] S [id number] Umr Commercial [id number] Self [id number] [employer] Commercial [id number] Self [id number] [employer] [id number] SP [id number] [employer] PPO O [id number] S [id number] [employer] Part B Self [employer] Commercial Self [employer] Commercial Self [employer] PPO P [id number] S [id number] Problems, Conditions, and Diagnoses Code Display Name Description Problem Type Effective Dates Data Source(s) N81.0 24575242 Urethrocele Problem 04/07/2020 12:00:[address] eCW1 ([facility]) N81.6 5809809 Rectocele Problem 04/07/2020 12:00:00 AM ES T eCW1 ([facility]) G89.29 66635484 Other chronic pain Problem 03/02/2020 12:00: 00 AM EST eCW1 ([facility]) E78.2 420984931 Mixed hyperlipidemia Problem 03/02/2020 12:0 0:00 AM EST eCW1 ([facility]) M22.40 44816685 Chondromalacia of patella, unspecified la terality Problem 10/10/2019 12:00:00 AM EDT eCW1 ([facility]) Z90.710 552984401 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 Problem 08/27/2019 12:00:00 AM EDT eCW1 ([facility]) N95.2 892306583 Vaginal atrophy Problem 08/27/2019 12:00:00 AM EDT eCW1 ([facility]) K59.00 46697249 Constipation in female Problem 08/27/2019 12 :00:00 AM EDT eCW1 ([facility]) N81.11 251951352 Midline cystocele Problem 08/27/2019 12:00:0 0 AM EDT eCW1 ([facility]) N94.10 10274073 Dyspareunia in female Problem 08/27/2019 12: 00:00 AM EDT eCW1 ([facility]) N39.3 10965783 Stress incontinence in female Problem 2019 12:00:00 AM EDT eCW1 ([facility]) Encounter for allergy testing Encounter for allergy te sting Problem 08/07/2019 12:00:00 AM EDT [facility] ([facility] ) 411474618 Uncomplicated moderate persistent asthma Uncomplicated moderate persistent asthma Problem 07/23/2019 12:00:00 AM EDT [facility] ([facility]) 907407063 Gastroesophageal reflux disease Gastroesophageal reflux disease Problem 05/29/2019 12:00:00 AM EST [facility] ([facility]) E09.9 2596603 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, without long-term current use of insulin Problem 04/30/2019 12:00:00 AM EST eCW1 ([facility]) I10 Benign essential hypertension Essential hypertension P roblem 04/30/2019 12:00:00 AM EST eCW1 ([facility]) I10 Benign essential hypertension Essential hypertension P roblem 04/30/2019 12:00:00 AM EST eCW1 ([facility]) E09.9 6063720 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 of opiate analge sic SNF (CURRENT) USE OF OPIATE ANALGESIC Diagnosis 01/30/2020 03:46:00 PM [facility] Z79.84 METROLOGIST (CURRENT) USE OF ORAL HYPOGLYC EMIC DRUGS METROLOGIST (CURRENT) USE OF ORAL HYPOGLYCEMIC DRUGS Diagnosis 01/30/2020 03:46:00 PM [facility] Z79.82 [facility]PC (current) use of aspirin METROLOGIST (CU RRENT) USE OF ASPIRIN Diagnosis 01/30/2020 03:46:00 PM [facility] J44.9 Chronic obstructive pulmonary disease, u nspecified CHRONIC OBSTRUCTIVE PULMONARY DISEASE, UNSPECIFIED Diagnosis 01/30/2020 03:46:00 PM [facility] M79.661 Pain in right lower leg PAIN IN RIGHT LOWER LEG Diagno sis 01/30/2020 03:46:00 PM [facility] M79.651 Pain in right thigh PAIN IN RIGHT THIGH Diagnosis 1 03/31/2019 03:46:00 PM [facility] M25.561 Pain in right knee PAIN IN RIGHT KNEE Diagnosis 08/2019 03:46:00 PM [facility] M79.89 Other specified soft tissue disorders OT HER SPECIFIED SOFT TISSUE DISORDERS Diagnosis 01/30/2020 03:46:00 PM [facility] R05 Cough COUGH Diagnosis 04/04/2019 12:16:00 PM [facility] R06.2 Wheezing WHEEZING Diagnosis 04/04/2019 11:30:00 AM [facility] Surgeries/Procedures Procedure Description Date Indications Data Source(s) ARTHROCENTESIS ASPIR&/INJECTION MAJOR JT/BURSA 021 12:00:00 AM EST [facility] ([facility] ) ARTHROCENTESIS ASPIR&/INJECTION MAJOR JT/BURSA 12:00:00 AM EST [facility] ([facility] ) ARTHRS KNE SURG W/MENISCECTOMY MED/LAT W/SHVG 01/29/20 20 12:00:00 AM EST [facility] ([facility] ) ARTHROCENTESIS ASPIR&/INJECTION MAJOR JT/BURSA 12:00:00 AM EST [facility] ([facility] ) ARTHROCENTESIS ASPIR&/INJECTION MAJOR JT/BURSA 020 12:00:00 AM EDT TOMA ([facility] ) ARTHROCENTESIS ASPIR&/INJECTION MAJOR JT/BURSA 020 12:00:00 AM EDT MEDCASANDRA ([facility] ) MRI Lower Extremity Any Joint 10/22/2019 12:00:00 AM E PRADEEP CHUA ([facility] ) Spirometry 10/22/2019 12:00:00 AM RUPERT BRICEÑO ([facility], ) X-Ray Spine Lumbosacral Complete Inc Bending Views Min Of 6 10/14/2019 12:00:00 AM EDT TOMA ([facility] ) RADIOLOGIC EXAM KNEE COMPLETE 4/MORE VIEWS 10/14/2019 12:00:00 AM EDT TOMA ([facility] ) ARTHROCENTESIS ASPIR&/INJECTION MAJOR JT/BURSA 020 12:00:00 AM EDT [facility] ([facility] ) PERCUTANEOUS TESTS W/ALLERGENIC EXTRACTS 08/07/2019 12 :00:00 AM EDT [facility] ([facility]) INTRACUTANEOUS TESTS W/ALLERGENIC EXTRACTS 08/07/2019 12:00:00 AM EDT [facility] ([facility]) Spirometry 07/23/2019 12:00:00 AM EDT M EDENT ([facility], ) URINE-NO MICRO 05/30/2019 12:00:00 AM EST eCW1 ([facility]) MEDICAL NUTRITION INDIV IN 05/21/2019 12:00:00 AM EST eCW1 ([facility]) Endoscopy Nasal Diagnostic 04/30/2019 12:00:00 AM EST MED[facility] ([facility], ) RESPIRATORY FLOW VOLUME LOOP 04/08/2019 12:00:00 AM ES T MED[facility] ([facility] Results ID Date Data Source [id number] 04/25/2020 12:00:00 AM EST [facility] Name Value Range Interpretation Code Description Data Saige rce(s) Supporting Document(s) SARS coronavirus 2 Ag Negative [facility] This lab was ordered by [facility] and reported by [facility]. ID Date Data Source URINE CULTURE 03/15/2020 12:00:00 AM EST eCW1 ([facility]) Name Value Range Interpretation Code Description Data Saige rce(s) Supporting Document(s) URINE CULTURE eCW1 ([facility]) ID Date Data Source BEDSIDE GLUCOSE 03/02/2020 12:00:00 AM EST eCW1 ([facility]) Name Value Range Interpretation Code Description Data Saige rce(s) Supporting Document(s) 114 BEDSIDE GLUCOSE eCW1 ([facility]) ID Date Data Source Urinalysis, no micro 03/02/2020 12:00:00 AM EST eCW1 ([facility]) Name Value Range Interpretation Code Description Data Saige rce(s) Supporting Document(s) 1.020 1.002 - 1.035 Spec gravity eCW1 ([facility]) 5 5.0 - 9.0 pH eCW1 ([facility]) positive Negative - Leukocyte eCW1 ([facility]) neg Negative - Nitrate eCW1 ([facility]) trace Negative - mg/dl Protein eCW1 ([facility]) neg Negative - mg/dl Glucose eCW1 ([facility]) neg Negative - mg/dl Ketones eCW1 ([facility]) normal Normal - mg/dl Urobili eCW1 ([facility]) 50 Negative - Blood eCW1 ([facility]) neg Negative - Bilirubin eCW1 ([facility]) yes Internal QC Acceptable (Y/N) e CW1 ([facility]) ID Date Data Source [id number] 01/30/2020 04:42:00 PM EST [facility] Patient: ELHAM VERAS Mike Observation R eport - Physicians/Mid Levels [facility].VisitID: [id number] [place] [address] [phone], FRegistration Date/Time: 01/30/2020 14:32 Weight:63.5 kg (S). Height/Length:64 inches (S). BMI:24 FAMILY HISTORYPaternal grandfather: Cancer, Heart Disease. Paternal grandmother: CVA - Cerebrovascular Accident. INSTRUCTIONSYour Current Medications: Your current home medications have been reviewed. CONTINUE TAKING THE FOLLOWING MEDICATIONS:Aspirin Oral : Tablet 325 mg, 1 tablet daily, Last: today. Claritin Oral : 10 mg daily, Last: today. Flovent HFA Inhalation : 2x a day, Last: today. HYDROcodone-Acetaminophen Oral : Tablet 5-325 mg, 1 tablet q4h, Last: 0900, prn. Hydroxychloroquine Sulfate Oral : Tablet 200 mg, 1 tablet 2x a day, Last: today. metFORMIN HCl Oral : Tablet 1000 mg, 2x a day, Last: today. Motrin IB Oral : 600 mg q6h, Last: today. Omeprazole Oral : 10 mg 2x a day, Last: today. One Daily Calcium/Iron Oral : daily, Last: today. Singulair Oral : 10 mg daily, Last: today. Xopenex Inhalation : 1 unit dose 4x a day, Last: today. (Electronically signed by Brigido Greene P.A. 01/30/2020 16:41) Name Value Range Interpretation Code Description Data Saige rce(s) Supporting Document(s) ID Date Data Source [id number] 01/30/2020 04:00:00 PM EST [facility] DATE OF EXAMINATION: 01/30/2020 14:57 EST DOP KIMBERLEE UNILATERAL HISTORY: Swelling Right LOWER EXTREMITY VENOUS DOPPLER Duplex scan was performed using B-mode/kothari scale imaging and Doppler spectralanalysis and color flow. Common femoral and superficial femoral veins were interrogated throughout theircourse, revealing easy compressibility and appropriate augmentation. Thepopliteal vessels are also easily compressible and show no signs of intraluminalthrombus formation. IMPRESSION: Negative study for deep venous thrombosis in the Right LOWER extremity. There is a 7 x 2.5 x 4 cm popliteal Vidales's cyst. Electronically signed in PS[facility] by: Melani Vargas M.D. 01/30/2020 15:54 EST Name Value Range Interpretation Code Description Data Saige rce(s) Supporting Document(s) ID Date Data Source [id number] 01/24/2020 11:00:00 AM [facility]T [facility] Name Value Range Interpretation Code Description Data [facility] rce(s) Supporting Document(s) Coronavirus 2019 Nasopharygeal Laboratory test result [facility] ([facility] ) This nucleic acid amplification test was developed and its performance characteristics determined by [facility]. Nucleic acid amplification tests include PCR and [...] detected) result in this assay. Performed at: [facility] [id number] [employer]ne[employer]: Angie Torres MD, Phone: [phone] Not Detected ID Date Data Source [id number] 01/24/2020 11:00:00 AM EDT [facility] Name Value Range Interpretation Code Description Data Saige rce(s) Supporting Document(s) SARS coronavirus 2 RNA [facility] This lab was ordered by [facility] and reported by [facility]. ID Date Data Source [id number] 01/08/2020 02:21:00 PM EDT MED[facility] ([facility], ) Name Value Range Interpretation Code Description Data Saige rce(s) Supporting Document(s) PDFReport Laboratory test result MEDENT ([facility], ) FVC-Pred 3.13 L [facility] ([facility]) FVC-Pre 2.99 L [facility] ([facility]) FVC-%Pred-Pre 95 L [facility] ([facility]) FVC-LLN 2.49 L [facility] ([facility]) Fev1-%Pred-Pre 103 L [facility] ([facility]) Fev1-Pre 2.53 L [facility] ([facility]) Fev1-Pred 2.45 L [facility] ([facility]) Fev6-Pre 2.99 L [facility] ([facility]) Fev1-LLN 1.91 L [facility] ([facility]) Fev6-Pred 3.03 L [facility] ([facility]) Fev6-LLN 2.41 L [facility] ([facility]) Fev6-%Pred-Pre 98 L [facility] ([facility]) Tac8hfx-Jerf 79 % [facility] ([facility]) Nbl2ayt-RZR 69 % [facility] ([facility]) Lko8mpb-Wxat 97 % [facility] ([facility]) Ecr4ttg-%Pred-Pre 107 % [facility] ([facility]) Oup0bpr-Rie 85 % [facility] ([facility]) Rec5kwq-Pgq 100 % [facility] ([facility]) Etv3nbw-%Pred-Pre 103 % [facility] ([facility]) FEFMax-Pred 6.16 L/E/sec [facility] ([facility]) FEFMax-%Pred-Pre 81 L/E/sec [facility] ([facility]) FEFMax-LLN 4.58 L/E/sec [facility] ([facility]) FEFMax-Pre 5.02 L/E/sec [facility] ([facility]) Hgg6205-%Pred-Pre 128 L/E/sec [facility] ([facility]) Erx4030-Xlf 3.10 L/E/sec [facility] ([facility]) Dqa0153-Zutd 2.42 L/E/sec MED[facility] ([facility]) Mpz6399-CYS 1.27 L/E/sec [facility] ([facility]) ExpTime-Pre 5.52 sec [facility] ([facility]) Vje0fds6-Akmg 82 % [facility] ([facility]) Gvo4jaa4-%Pred-Pre 103 % [facility] ([facility]) Apr0ymq6-Fey 85 % [facility] ([facility]) Zsv7jwq5-JAM 73 % [facility] ([facility]) ID Date Data Source [id number] 08/21/2019 12:00:00 AM EDT [facility] Maru Quintanilla MD Patient Name: AMANDA VERASY[address] [facility] Date of : 1965 Date of Exam: 08/21/2019LIANA Gomez [id number]#: Fax: [phone] EXAM: MRI KNEE LEFT WITHOUT CONTRASTCLINICAL INFORMATION: Pain x 6 months.3T multiplanar MRI imaging of the left knee was obtained using varioussequences.There are no prior left knee MRI's for comparison.The anterior and posterior horns of the medial meniscus are within normallimits. Extensive Grade I signal change is present in the anterior horn ofthe lateral meniscus. The posterior horn is within normal limits. Theanterior and posterior cruciate ligaments are intact. The quadriceps andpatellar tendons are intact. There is a small amount of T2 hypersignal inthe lateral extent of Hoffa's fat pad. The medial and lateral collateralligaments are intact. The medial and lateral patellar retinacula areintact. There is advanced thinning and irregularity of the patellararticular cartilage over the lateral facet and the articular cartilage ofthe trochlear groove laterally. This is seen in conjunction withsubchondral T2 hypersignal in both the patella median aspect and laterallyas well as the anterior lateral femoral condyle. There is a small Vidales'scyst. There is no joyce joint effusion. There is a small amount of fluidanterior to the medial head of the gastrocnemius muscle.IMPRESSION:1. Advanced degenerative type signal changes seen in the anterior horn ofthe lateral meniscus. An interstitial substance tear cannot be ruled out.2. Advanced chondromalacia in the trochlear groove and patella asdescribed above seen in conjunction with subchondral edema and earlysubchondral cyst formation.3. Edema in Hoffa's fat pad as described above, likely secondary toimproper patellar tracking with or without overuse.4. Small collections of fluid and other findings as described above.Accredited by the [employer] in MR.[place]UP[place] pappas for referring ELHAM VERAS to our office. Electronically Signed - STACEY DAVEY DO 08/21/19 13:46 Name Value Range Interpretation Code Description Data Saige rce(s) Supporting Document(s) ID Date Data Source [id number] 07/23/2019 10:50:00 AM EDT [facility] ([facility]) Name Value Range Interpretation Code Description Data Saige rce(s) Supporting Document(s) Laboratory test finding (navigational concept) Laboratory test r esult Normal (applies to non-numeric results) [facility] ([facility] Laboratory test finding (navigational concept) 7.4 ug/mL Normal (applies to non-numeric results) [facility] ([facility]) Laboratory test finding (navigational concept) 3.3 ug/mL Normal (applies to non-numeric results) [facility] ([facility]) Laboratory test finding (navigational concept) 0.3 ug/mL Below low normal [facility] ([facility]) Laboratory test finding (navigational concept) 1.5 ug/mL Normal (applies to non-numeric results) [facility] ([facility]) Laboratory test finding (navigational concept) 1.5 ug/mL Normal (applies to non-numeric results) [facility] ([facility]) Laboratory test finding (navigational concept) 6.4 ug/mL Normal (applies to non-numeric results) [facility] ([facility]) Laboratory test finding (navigational concept) 13.9 ug/mL Normal (applies to non-numeric results) [facility] ([facility]) Laboratory test finding (navigational concept) 19.4 ug/mL Normal (applies to non-numeric results) [facility] ([facility]) Laboratory test finding (navigational concept) 1.6 ug/mL Normal (applies to non-numeric results) [facility] ([facility]) Laboratory test finding (navigational concept) Laboratory test r esult Normal (applies to non-numeric results) [facility] ([facility] Laboratory test finding (navigational concept) 5.5 ug/mL Normal (applies to non-numeric results) [facility] ([facility]) Laboratory test finding (navigational concept) 17.6 ug/mL Normal (applies to non-numeric results) [facility] ([facility]) Laboratory test finding (navigational concept) 1.4 ug/mL Normal (applies to non-numeric results) [facility] ([facility]) *This test was developed and its perform ance characteristics determined by [facility]. It has not been cleared or approved by the U.S. Food and Drug Administration. ID Date Data Source [id number] 07/23/2019 10:50:00 AM EDT [facility] ([facility]) Name Value Range Interpretation Code Description Data Saige rce(s) Supporting Document(s) IgE [Mass/volume] in Serum Laboratory test result Normal (applies to non- numeric results) [facility] ([facility] ) <content>note:<nlbl:demographic_changed></content>
<content>note:<nlbl:demog raphic_changed></content>
<content>note:<nlbl:demographic_changed></content>
<content></content> Rubella virus IgG Ab [Units/volume] in Serum or Plasma by Immunoassay Laboratory test result Normal (applies to non-numeric results) [facility] ([facility]) THE RUBELLA RESULT WAS OBTAINED WITH THE CENTAUR RUBELLA IGG ASSAY. IgG VALUES FROM ANOTHER MANUFACTURERS' METHOD MAY NOT BE USED INTERCHANGEABLY. MAGNITUDE OF LEVEL CANNOT BE CORRELATED TO AN ENDPOINT TITER. SUSCEPTIBLE 0.00-5.00 IU/ML EQUIVOCAL 5.01-9.99 IU/ML IMMUNE > 10.00 IU/ML Clostridium tetani toxin Ab [Presence] in Serum 0.60 IU/ml Normal (applies to non-numeric results) [facility] ([facility]) <content>Interpretation:</content>
< content>Non-Protective <0.10</content>
<content>Protective >=0.10</content>
<content>Results for this test are for research purposes</content>
<content>only by the assay's test clerk. The performance</content>
<content>characteristics of this product have not been</content>
<content>established. Results should not be used as a</c ontent>
<content>diagnostic procedure without confirmation of the</content>
<content>diagnosis by another medically established diagnostic</content>
<content>product or procedure.</content>
<content> Performed at: [facility]</content>
<content>[address], [place] [id number]</content>
<content>Journe[employer] Mill[employer]: Vonnie Lei PhD, Phone: [phone]</content>
<content> Performed at: [facility]</content>
<content>[address] [place] [id number]</content>
<content>Journe[employer] Mill[employer]: Flaco Waite MD, Phone: [phone]</content>
<content></content> ID Date Data Source [id number] 07/23/2019 10:50:00 AM EDT [facility] ([facility]) Name Value Range Interpretation Code Description Data Saige rce(s) Supporting Document(s) Laboratory test finding (navigational concept) 110.0 mg/dL 7 0-400 Normal (applies to non-numeric results) [facility] ([facility] Laboratory test finding (navigational concept) 91.8 mg/dL 4 0-230 Normal (applies to non-numeric results) [facility] Laboratory test finding (navigational concept) 791 mg/dL 6 81-1648 Normal (applies to non-numeric results) [facility] ([facility] ID Date Data Source [id number] 07/23/2019 10:50:00 AM EDT MED[facility] ([facility]) Name Value Range Interpretation Code Description Data Saige rce(s) Supporting Document(s) Laboratory test finding (navigational concept) 93 mg/dL 7 0-100 Normal (applies to non-numeric results) [facility] Laboratory test finding (navigational concept) 7 mg/dL 7 -18 Normal (applies to non-numeric results) [facility] Laboratory test finding (navigational concept) 0.63 mg/dL 0 .55-1.30 Normal (applies to non-numeric results) [facility] ([facility]) Laboratory test finding (navigational concept) Laboratory test r esult Normal (applies to non-numeric results) [facility] ([facility]) <content>Units are mL/min/1.73 m2</content>
<content></content>
<content>Chronic Kidney Disease Staging per NKF:</content>
<content></content>
<content>Stage I & II GFR >=60 Normal to Mildly Decreased</content>
<content>Stage III GFR 30- 59 Moderately Decreased</content>
<content>Stage IV GFR 15-29 Severely Decreased</content>
<content>Stage V GFR <15 Very Little GFR Left</content>
<content>ESRD GFR <15 on MATLAB DEVELOPER</content>
<content></content> Laboratory test finding (navigational concept) 138 meq/L 1 36-145 Normal (applies to non-numeric results) [facility] Laboratory test finding (navigational concept) 5.0 meq/L 3 .5-5.1 Normal (applies to non-numeric results) [facility] Laboratory test finding (navigational concept) 103 meq/L 9 8-107 Normal (applies to non-numeric results) [facility] ([facility]) Laboratory test finding (navigational concept) 7 meq/L 8-16 Below low normal MED[facility] ([facility]) Laboratory test finding (navigational concept) 9.4 mg/dL 8 .5-10.1 Normal (applies to non-numeric results) [facility] ([facility] Laboratory test finding (navigational concept) 28 meq/L 2 1-32 Normal (applies to non-numeric results) [facility] [place] Laboratory test finding (navigational concept) 41 U/L 1 2-78 Normal (applies to non-numeric results) [facility] Laboratory test finding (navigational concept) 70 U/L 4 5-117 Normal (applies to non-numeric results) [facility] Laboratory test finding (navigational concept) 18 U/L 7 -37 Normal (applies to non-numeric results) [facility] Laboratory test finding (navigational concept) 0.3 mg/dL 0 .2-1.0 Normal (applies to non-numeric results) [facility] Laboratory test finding (navigational concept) 3.9 GM/DL 3 .2-5.2 Normal (applies to non-numeric results) [facility] Laboratory test finding (navigational concept) 7.2 GM/DL 6 .4-8.2 Normal (applies to non-numeric results) [facility] Laboratory test finding (navigational concept) 1.18 1 .00-1.93 Normal (applies to non-numeric results) [facility] ([facility]) ID Date Data Source [id number] 07/23/2019 10:50:00 AM EDT [facility] ([facility]) Name Value Range Interpretation Code Description Data Saige rce(s) Supporting Document(s) Erythrocyte sedimentation rate by Westergren method 10 mm/hr 0-30 Normal (applies to non-numeric results) [facility] ([facility] ID Date Data Source [id number] 07/23/2019 10:50:00 AM EDT MED[facility] ([facility]) Name Value Range Interpretation Code Description Data Saige rce(s) Supporting Document(s) Laboratory test finding (navigational concept) 4.37 10 4 .00-5.40 Normal (applies to non-numeric results) [facility] Laboratory test finding (navigational concept) 7.6 10 4 .0-10.0 Normal (applies to non-numeric results) [facility] ([facility] Laboratory test finding (navigational concept) 13.0 g/dL 1 2.0-15.5 Normal (applies to non-numeric results) [facility] ([facility] Laboratory test finding (navigational concept) 39.4 % 3 6.0-47.0 Normal (applies to non-numeric results) [facility] ([facility] Laboratory test finding (navigational concept) 33.0 g/dL 3 2.0-36.5 Normal (applies to non-numeric results) [facility] ([facility] Laboratory test finding (navigational concept) 29.7 pg 2 7.0-33.0 Normal (applies to non-numeric results) [facility] Laboratory test finding (navigational concept) 90.2 fl 8 0.0-96.0 Normal (applies to non-numeric results) [facility] Laboratory test finding (navigational concept) 336 10 1 50-450 Normal (applies to non-numeric results) [facility] [place] Laboratory test finding (navigational concept) 12.7 % 1 1.5-14.5 Normal (applies to non-numeric results) [facility] ([facility] Laboratory test finding (navigational concept) 60.2 % 3 6.0-66.0 Normal (applies to non-numeric results) [facility] ([facility] Laboratory test finding (navigational concept) 26.1 % 2 4.0-44.0 Normal (applies to non-numeric results) [facility] ([facility] Laboratory test finding (navigational concept) 8.8 % 0.0-5.0 Above high normal [facility] ([facility] Laboratory test finding (navigational concept) 0.9 % 0 .0-1.0 Normal (applies to non-numeric results) [facility] Laboratory test finding (navigational concept) 3.5 % 0.0-3.0 Above high normal [facility] ([facility] Laboratory test finding (navigational concept) 0.5 % 0 -3.0 Normal (applies to non-numeric results) [facility] Laboratory test finding (navigational concept) 2.0 10 1 .5-5.0 Normal (applies to non-numeric results) [facility] ([facility]) Laboratory test finding (navigational concept) 4.6 10 1 .5-8.5 Normal (applies to non-numeric results) [facility] ([facility]) Laboratory test finding (navigational concept) 0.0 % 0 -0 Normal (applies to non- numeric results) [facility] ([facility] ) Laboratory test finding (navigational concept) 0.3 10 0 .0-0.5 Normal (applies to non-numeric results) [facility] ([facility]) Laboratory test finding (navigational concept) 0.1 10 0 .0-0.2 Normal (applies to non-numeric results) [facility] ([facility]) Laboratory test finding (navigational concept) 0.7 10 0 .0-0.8 Normal (applies to non-numeric results) [facility] ([facility]) ID Date Data Source [id number] 06/23/2019 03:14:00 PM EDT MED[facility] ([facility]) Name Value Range Interpretation Code Description Data Saige rce(s) Supporting Document(s) FVC-Pred 3.13 L MEDENT ([facility], ) PDFReport Laboratory test result MEDENT ([facility], ) FVC-%Pred-Pre 90 L MEDENT ([facility], ) FVC-Pre 2.84 L MEDENT ([facility]) FVC-LLN 2.49 L MEDENT ([facility]) Fev1-%Pred-Pre 93 L MEDENT ([facility]) Fev1-Pre 2.30 L MEDENT ([facility]) Fev1-Pred 2.45 L MED[facility] ([facility]) Fev6-Pred 3.03 L MEDENT ([facility], ) Fev1-LLN 1.91 L MED[facility] ([facility]) Fev6-%Pred-Pre 93 L MEDENT ([facility]) Fev6-Pre 2.83 L MEDENT ([facility]) Ugj7dcm-Vdi 81 % MED[facility] ([facility]) Fev6-LLN 2.41 L MEDENT ([facility]) Bsg9cwq-Zmny 79 % MED[facility] ([facility]) Wdp9qvr-NDP 69 % MED[facility] ([facility]) Blm5teo-Fyks 97 % MED[facility] ([facility]) Ssb8hle-%Pred-Pre 102 % MED[facility] ([facility]) FEFMax-Pred 6.16 L/E/sec MEDENT ([facility]) Tba7nyx-%Pred-Pre 102 % MED[facility] ([facility]) Iwl9yox-Ygz 100 % MED[facility] ([facility]) FEFMax-Pre 4.55 L/E/sec MEDENT ([facility]) FEFMax-LLN 4.58 L/E/sec MED[facility] ([facility]) FEFMax-%Pred-Pre 73 L/E/sec MED[facility] ([facility]) Xsp1675-Pnd 2.56 L/E/sec MED[facility] ([facility]) Sdl4094-DWV 1.27 L/E/sec MED[facility] ([facility]) Qgi0506-Rshe 2.42 L/E/sec MED[facility] ([facility]) Wne3451-%Pred-Pre 105 L/E/sec MEDENT ([facility]) Tmr6amz1-Ydhs 82 % MEDENT ([facility]) ExpTime-Pre 6.37 sec MED[facility] ([facility]) Cpv3imw6-NXQ 73 % MED[facility] ([facility]) Nhz6dui1-Siu 81 % MED[facility] ([facility]) Qwb9jyr3-%Pred-Pre 99 % MED[facility] ([facility]) ID Date Data Source [id number] 04/08/2019 10:53:00 AM EST [facility] ([facility] Name Value Range Interpretation Code Description Data Saige rce(s) Supporting Document(s) Erythrocyte sedimentation rate by 2H Westergren method 8 mm/hr 0-3 0 [facility] ([facility] C reactive protein [Mass/volume] in Serum or Plasma by High sensitivity method < 0.30 mg/dL 0.00-0.30 [facility] ([facility] ID Date Data Source [id number] 04/08/2019 10:53:00 AM EST [facility] ([facility] Name Value Range Interpretation Code Description Data Saige rce(s) Supporting Document(s) Hemoglobin 12.7 g/dL 12.0-15.5 [facility] Red Blood Count 4.17 10 4.00-5.40 [facility] ([facility] White Blood Count 16.6 10 4.0-10.0 [facility] ([facility] Hematocrit 38.9 % 36.0-47.0 [facility] Mean Corpuscular Volume 93.3 fl 80.0-96.0 M EDENT ([facility] Mean Corpuscular Hemoglobin 30.5 pg 27.0-33.0 [facility] ([facility] Red Cell Distribution Width 13.0 % 11.5-14.5 [facility] ([facility] Mean Corpuscular HGB Conc 32.6 g/dL 32.0-36.5 [facility] ([facility] Lymph % 17.9 % 24.0-44.0 [facility] Platelet Count, Automated 335 10 150-450 [facility] ([facility] Neutrophils % 72.0 % 36.0-66.0 [facility] ([facility] [place] % 6.8 % 0.0-5.0 [facility] ([facility] Eos % 0.1 % 0.0-3.0 [facility] ([facility] Nucleated Red Blood Cell % 0.0 % 0-0 [facility] ([facility] Baso % 0.4 % 0.0-1.0 [facility] Immature Granulocyte % 2.8 % 0-3.0 [facility] ([facility] Lymph # 3.0 10 1.5-5.0 [facility] ([facility] Neutrophils # 11.9 10 1.5-8.5 [facility] ([facility] Eos # 0.0 10 0.0-0.5 [facility] [place] # 1.1 10 0.0-0.8 [facility] ([facility] Baso # 0.1 10 0.0-0.2 [facility] ID Date Data Source [id number] 04/04/2019 12:44:00 PM EST [facility] DATE OF EXAMINATION: 04/04/2019 12:23 EST CHEST 2 VIEWS HISTORY: Cough x1 month TECHNIQUE: PA and lateral radiographs of the chest COMPARISON: None. FINDINGS: No evidence of focal consolidation, pneumothorax or large pleural effusion.Lungs are clear. Mediastinal structures are unremarkable. No aggressive osseouslesions. IMPRESSION: No focal consolidation. Electronically signed in PS360 by: Melani Vargas M.D. 04/04/2019 12:38 EST Name Value Range Interpretation Code Description Data Saige rce(s) Supporting Document(s) Procedure Social History Code Duration Value Status Description Data Source(s ) Smoking 04/25/2020 12:00:00 AM EST Patient has never smoked co mpleted Patient has never smoked MED[facility] ([facility], [facility]) Smoking 04/07/2020 12:00:00 AM EST Former Smoker completed Former Smoker eCW1 ([facility]) Smoking 03/15/2020 12:00:00 AM EST Former Smoker completed Former Smoker eCW1 ([facility]) Smoking 03/15/2020 12:00:00 AM EST Former Smoker completed Former Smoker eCW1 ([facility]) Smoking 03/15/2020 12:00:00 AM EST Former Smoker completed Former Smoker eCW1 ([facility]) Smoking 03/15/2020 12:00:00 AM EST Former Smoker completed Former Smoker eCW1 ([facility]) Smoking 03/02/2020 12:00:00 AM EST Former Smoker completed Former Smoker eCW1 ([facility]) Smoking 03/02/2020 12:00:00 AM EST Former Smoker completed Former Smoker eCW1 ([facility]) 10/22/2019 12:00:00 AM EDT Denies Smoking completed Denie s Smoking MED[facility] ([facility], ) Smoking 10/10/2019 12:00:00 AM EDT Former Smoker completed Former Smoker eCW1 ([facility]) Smoking 10/10/2019 12:00:00 AM EDT Former Smoker completed Former Smoker eCW1 ([facility]) Smoking 10/10/2019 12:00:00 AM EDT Former Smoker completed Former Smoker eCW1 ([facility]) Smoking 10/10/2019 12:00:00 AM EDT Former Smoker completed Former Smoker eCW1 ([facility]) Smoking 08/27/2019 12:00:00 AM EDT Former Smoker completed Former Smoker eCW1 ([facility]) Smoking 08/27/2019 12:00:00 AM EDT Former Smoker completed Former Smoker eCW1 ([facility]) Smoking 08/27/2019 12:00:00 AM EDT Former Smoker completed Former Smoker eCW1 ([facility]) Smoking 07/23/2019 12:00:00 AM EDT Patient is a former smoker completed Patient is a former smoker [facility] ([facility] ) Vital Signs ID Date Data Source UNK Name Value Range Interpretation Code Description Data Source(s) Body mass index (BMI) [Ratio] 24.0 kg/m2 24.0 k g/m2 MED[facility] ([facility]) Body height 64 [in_i] 64 [in_i] MEDENT ([facility]) 5'4" Body weight 140.00 [lb_av] 140.00 [lb_av] MEDEN T ([facility]) Body temperature 98.7 [degF] 98.7 [degF] MED[facility] ([facility]) Oxygen saturation in Arterial blood by Pulse oximetry 97 % 97 % MED[facility] ([facility]) Respiratory rate 14 /min 14 /min MED[facility] ( [facility]) Heart rate 102 /min 102 /min MED[facility] ([facility], [facility]) Diastolic blood pressure 87 mm[Hg] 87 mm[Hg] MED[facility] ([facility]) Systolic blood pressure 140 mm[Hg] 140 mm[Hg] M EDENT ([facility]) Diastolic blood pressure 77 mm[Hg] 77 mm[Hg] eCW1 ([facility]) Systolic blood pressure 124 mm[Hg] 124 mm[Hg] e CW1 ([facility]) Body mass index (BMI) [Ratio] 25.51 kg/m2 25.51 kg/m2 [facility] ([facility]) Body height 63 [in_i] 63 [in_i] eCW1 ([facility]) Body weight 65.32 kg 65.32 kg eCW1 ([facility]) Body weight 144 [lb_av] 144 [lb_av] eCW1 ([facility]) Body temperature 96.9 [degF] 96.9 [degF] MEDENT ([facility]) Diastolic blood pressure 79 mm[Hg] 79 mm[Hg] eCW1 ([facility]) Systolic blood pressure 137 mm[Hg] 137 mm[Hg] e CW1 ([facility]) Body temperature 98.4 [degF] 98.4 [degF] eCW1 ( [facility]) Respiratory rate 18 /min 18 /min eCW1 ([facility]) Heart rate 94 /min 94 /min eCW1 ([facility]) Body mass index (BMI) [Ratio] 24.97 kg/m2 24.97 kg/m2 eCW1 ([facility]) Body height 63 [in_i] 63 [in_i] eCW1 ([facility]) Body weight 141 [lb_av] 141 [lb_av] eCW1 ([facility]) Diastolic blood pressure 90 mm[Hg] 90 mm[Hg] eCW1 ([facility]) Systolic blood pressure 170 mm[Hg] 170 mm[Hg] e CW1 ([facility]) Body temperature 98 [degF] 98 [degF] eCW1 ([facility]) Respiratory rate 18 /min 18 /min eCW1 ([facility]) Heart rate 107 /min 107 /min eCW1 ([facility]) Body mass index (BMI) [Ratio] 25.51 kg/m2 25.51 kg/m2 eCW1 ([facility]) Body height 63 [in_i] 63 [in_i] eCW1 ([facility]) Body weight 144 [lb_av] 144 [lb_av] eCW1 ([facility]) Body weight 65.772 kg 65.772 kg MEDCASANDRA ([facility], ) [place] body weight 105 [lb_av] 105 [lb_av] MEDEN T ([facility], ) Body mass index (BMI) [Ratio] 27.0 kg/m2 27.0 k g/m2 MEDENT ([facility], ) Body weight 145.00 [lb_av] 145.00 [lb_av] MEDEN T ([facility], ) Body height 61.5 [in_i] 61.5 [in_i] MEDENT ([facility], ) 5'1.50" Body temperature 97.0 [degF] 97[facility]0 [degF] [facility], [facility] Oxygen saturation in Arterial blood by Pulse oximetry 98 % 98 % [facility] ([facility], ) Heart rate 107 /min 107 /min [facility] ([facility], ) Diastolic blood pressure 80 mm[Hg] 80 mm[Hg] [facility] ([facility], ) Systolic blood pressure 130 mm[Hg] 130 mm[Hg] [facility] ([facility], ) Body mass index (BMI) [Ratio] 24.0 kg/m2 24.0 k g/m2 MEDENT ([facility]) Body weight 140.00 [lb_av] 140.00 [lb_av] MEDEN T ([facility]) Body height 64 [in_i] 64 [in_i] MEDENT ([facility]) 5'4" Body temperature 96.0 [degF] 96.0 [degF] [facility] ([facility]) Body mass index (BMI) [Ratio] 24.9 kg/m2 24.9 k g/m2 [facility]) Body height 64 [in_i] 64 [in_i] MEDENT ([facility], [facility]) 5'4" Body weight 145.00 [lb_av] 145.00 [lb_av] MEDEN T ([facility], [facility]) Body temperature 98.9 [degF] 98.9 [degF] MEDENT ([facility], [facility]) Oxygen saturation in Arterial blood by Pulse oximetry 100 % 100 % [facility] ([facility], [facility]) Respiratory rate 18 /min 18 /min [facility] ( [facility], [facility]) Heart rate 92 /min 92 /min [facility] ([facility], [facility]) Diastolic blood pressure 78 mm[Hg] 78 mm[Hg] [facility] ([facility], [facility]) Systolic blood pressure 128 mm[Hg] 128 mm[Hg] [facility]) Body weight 65.772 kg 65.[address] [facility] ([facility], ) [place] body weight 105 [lb_av] 105 [lb_av] MEDEN T ([facility], ) Body mass index (BMI) [Ratio] 27.0 kg/m2 27.0 k g/m2 MEDENT ([facility]) Body weight 145.00 [lb_av] 145.00 [lb_av] MEDEN T ([facility]) Body height 61.5 [in_i] 61.5 [in_i] MEDENT ([facility]) 5'1.50" Body temperature 97.1 [degF] 97.1 [degF] [facility] Oxygen saturation in Arterial blood by Pulse oximetry 98 % 98 % [facility] Heart rate 80 /min 80 /min [facility] ([facility]) Diastolic blood pressure 80 mm[Hg] 80 mm[Hg] [facility] ([facility]) Systolic blood pressure 130 mm[Hg] 130 mm[Hg] M EDENT ([facility]) Body mass index (BMI) [Ratio] 24.5 kg/m2 24.5 k g/m2 MEDENT ([facility]) Body weight 143.00 [lb_av] 143.00 [lb_av] MEDEN T ([facility]) Body height 64 [in_i] 64 [in_i] MEDENT ([facility]) 5'4" Body temperature 97.0 [degF] 97.0 [degF] MEDENT ([facility]) Diastolic blood pressure 79 mm[Hg] 79 mm[Hg] eCW1 ([facility]) Systolic blood pressure 126 mm[Hg] 126 mm[Hg] e CW1 ([facility]) Body temperature 98 [degF] 98 [degF] eCW1 ([facility]) Respiratory rate 18 /min 18 /min eCW1 ([facility]) Heart rate 78 /min 78 /min eCW1 ([facility]) Body mass index (BMI) [Ratio] 26.04 kg/m2 26.04 kg/m2 eCW1 ([facility]) Body height 63 [in_i] 63 [in_i] eCW1 ([facility]) Body weight 147 [lb_av] 147 [lb_av] eCW1 ([facility]) Diastolic blood pressure 78 mm[Hg] 78 mm[Hg] eCW1 ([facility]) Systolic blood pressure 124 mm[Hg] 124 mm[Hg] e CW1 ([facility]) Body mass index (BMI) [Ratio] 26.71 kg/m2 26.71 kg/m2 eCW1 ([facility]) Body height 63 [in_i] 63 [in_i] eCW1 ([facility]) Body weight 150.8 [lb_av] 150.8 [lb_av] eCW1 ([facility]) Body height 61 [in_i] 61 [in_i] [facility] ([facility] 5'1" Body weight 152.38 [lb_av] 152.38 [lb_av] MEDEN T ([facility] Body mass index (BMI) [Ratio] 28.8 kg/m2 28.8 k g/m2 [facility] ([facility] Diastolic blood pressure 76 mm[Hg] 76 mm[Hg] [facility] ([facility] Systolic blood pressure 127 mm[Hg] 127 mm[Hg] M EDENT ([facility] Respiratory rate 20 /min 20 /min [facility] ( [facility] Heart rate 103 /min 103 /min [facility] Body mass index (BMI) [Ratio] 30.0 kg/m2 30.0 k g/m2 [facility] ([facility] Diastolic blood pressure 76 mm[Hg] 76 mm[Hg] [facility] ([facility] Systolic blood pressure 146 mm[Hg] 146 mm[Hg] M EDENT ([facility] Respiratory rate 20 /min 20 /min [facility] ( [facility] Heart rate 105 /min 105 /min [facility] ([facility] Body height 60 [in_i] 60 [in_i] MED[facility] ([facility] 5'0" Body weight 153.50 [lb_av] 153.50 [lb_av] MEDEN T ([facility]) Oxygen saturation in Arterial blood by Pulse oximetry 98 % 98 % [facility], ) Heart rate 94 /min 94 /min [facility]) Diastolic blood pressure 84 mm[Hg] 84 mm[Hg] [facility]) Systolic blood pressure 118 mm[Hg] 118 mm[Hg] M EDENT ([facility] [facility] Body weight 69.854 kg 69.[address] [facility] ([facility]) Body mass index (BMI) [Ratio] 28.6 kg/m2 28.6 k g/m2 [facility] ([facility]) Body weight 154.00 [lb_av] 154.00 [lb_av] [facility] T ([facility], ) Body height 61.5 [in_i] 61.5 [in_i] [facility] ([facility], ) 5'1.50" Body temperature 97.2 [degF] 97.2 [degF] [facility] ([facility]) Diastolic blood pressure 84 mm[Hg] 84 mm[Hg] eCW1 ([facility]) Systolic blood pressure 138 mm[Hg] 138 mm[Hg] e CW1 ([facility]) Body temperature 98.4 [degF] 98.4 [degF] eCW1 ( [facility]) Respiratory rate 18 /min 18 /min eCW1 ([facility]) Heart rate 95 /min 95 /min eCW1 ([facility]) Body mass index (BMI) [Ratio] 26.57 kg/m2 26.57 kg/m2 eCW1 ([facility]) Body height 63 [in_us] 63 [in_us] eCW1 ([facility]) Body weight Measured 150 [lb_av] 150 [lb_av] eC W1 ([facility]) Diastolic blood pressure 78 mm[Hg] 78 mm[Hg] eCW1 ([facility]) Systolic blood pressure 138 mm[Hg] 138 mm[Hg] e CW1 ([facility]) Body temperature 97.8 [degF] 97.8 [degF] eCW1 ( [facility]) Respiratory rate 19 /min 19 /min eCW1 ([facility]) Heart rate 96 /min 96 /min eCW1 ([facility]) Body mass index (BMI) [Ratio] 27.30 kg/m2 27.30 kg/m2 eCW1 ([facility]) Body height 63 [in_us] 63 [in_us] eCW1 ([facility]) Body weight Measured 154.12 [lb_av] 154.12 [lb_ av] eCW1 ([facility]) Body weight 70.308 kg 70.308 kg [facility] ([facility], ) Body mass index (BMI) [Ratio] 28.8 kg/m2 28.8 k g/m2 [facility], [facility] Body weight 155.00 [lb_av] 155.00 [lb_av] [facility] T ([facility], ) Body height 61.5 [in_i] 61.5 [in_i] [facility], [facility] 5'1.50" Body weight 69.854 kg 69.854 kg [facility] ([facility]) Body mass index (BMI) [Ratio] 26.4 kg/m2 26.4 k g/m2 [facility] ([facility]) Heart rate 101 /min 101 /min [facility] ([facility]) Diastolic blood pressure 74 mm[Hg] 74 mm[Hg] [facility] ([facility]) Systolic blood pressure 126 mm[Hg] 126 mm[Hg] M EDENT ([facility]) Body weight 154.00 [lb_av] 154.00 [lb_av] [facility] T ([facility]) Body height 64 [in_i] 64 [in_i] [facility] ([facility]) 5'4" Body mass index (BMI) [Ratio] 27.21 kg/m2 27.21 kg/m2 eCW1 ([facility]) Body height 63 [in_us] 63 [in_us] eCW1 ([facility]) Body weight Measured 153.6 [lb_av] 153.6 [lb_av ] eCW1 ([facility]) Body weight 70.308 kg 70.308 kg [facility] ([facility]) Body mass index (BMI) [Ratio] 28.8 kg/m2 28.8 k g/m2 [facility] ([facility]) Body weight 155.00 [lb_av] 155.00 [lb_av] MEDEN T ([facility]) Body height 61.5 [in_i] 61.5 [in_i] [facility] ([facility]) 5'1.50" Diastolic blood pressure 80 mm[Hg] 80 mm[Hg] eCW1 ([facility]) Systolic blood pressure 140 mm[Hg] 140 mm[Hg] e CW1 ([facility]) Body temperature 98.7 [degF] 98.7 [degF] eCW1 ( [facility]) Respiratory rate 18 /min 18 /min eCW1 ([facility]) Heart rate 88 /min 88 /min eCW1 ([facility]) Body mass index (BMI) [Ratio] 28.34 kg/m2 28.34 kg/m2 eCW1 ([facility]) Body height 63 [in_us] 63 [in_us] eCW1 ([facility]) Body weight Measured 160 [lb_av] 160 [lb_av] eC W1 ([facility]) Body mass index (BMI) [Ratio] 28.6 kg/m2 28.6 k g/m2 [facility] ([facility] Body weight 154.00 [lb_av] 154.00 [lb_av] [facility] T ([facility] Body height 61.5 [in_i] 61.5 [in_i] [facility] 5'1.50" Oxygen saturation in Arterial blood by Pulse oximetry 95 % 95 % [facility] ([facility] Heart rate 84 /min 84 /min [facility] ([facility] Diastolic blood pressure 90 mm[Hg] 90 mm[Hg] [facility] ([facility] Systolic blood pressure 142 mm[Hg] 142 mm[Hg] M EDENT ([facility] Body mass index (BMI) [Ratio] 28.4 kg/m2 28.4 k g/m2 [facility] ([facility] Body weight 153.00 [lb_av] 153.00 [lb_av] [facility] T ([facility] Body height 61.5 [in_i] 61.5 [in_i] [facility] ([facility] 5'1.50" Body temperature 99.4 [degF] 99.4 [degF] [facility] ([facility] Oxygen saturation in Arterial blood by Pulse oximetry 98 % 98 % [facility] ([facility] Heart rate 85 /min 85 /min [facility] ([facility] Diastolic blood pressure 90 mm[Hg] 90 mm[Hg] [facility] ([facility] Systolic blood pressure 140 mm[Hg] 140 mm[Hg] M EDENT ([facility] Deprecated Oxygen saturation in Capillary blood by Oximetry 98 % 98 % eCW1 ([facility]) Respiratory rate 18 /min 18 /min eCW1 ([facility]) Heart rate 90 /min 90 /min eCW1 ([facility]) Body temperature 97.9 [degF] 97.9 [degF] eCW1 ( [facility]) Body mass index (BMI) [Ratio] 26.34 kg/m2 26.34 kg/m2 eCW1 ([facility]) Body height 64 [in_us] 64 [in_us] eCW1 ([facility]) Diastolic blood pressure 77 mm[Hg] 77 mm[Hg] eCW1 ([facility]) Systolic blood pressure 132 mm[Hg] 132 mm[Hg] e CW1 ([facility]) Body temperature 99.3 [degF] 99.3 [degF] eCW1 ( [facility]) Respiratory rate 18 /min 18 /min eCW1 ([facility]) Heart rate 123 /min 123 /min eCW1 ([facility]) Body mass index (BMI) [Ratio] 27.10 kg/m2 27.10 kg/m2 eCW1 ([facility]) Body height 63 [in_us] 63 [in_us] eCW1 ([facility]) Body weight Measured 153 [lb_av] 153 [lb_av] eC W1 ([facility]) Diastolic blood pressure 74 mm[Hg] 74 mm[Hg] eCW1 ([facility]) Systolic blood pressure 125 mm[Hg] 125 mm[Hg] e CW1 ([facility]) Body temperature 98.7 [degF] 98.7 [degF] eCW1 ( [facility]) Respiratory rate 18 /min 18 /min eCW1 ([facility]) Heart rate 98 /min 98 /min eCW1 ([facility]) Body mass index (BMI) [Ratio] 26.92 kg/m2 26.92 kg/m2 eCW1 ([facility]) Body height 63 [in_us] 63 [in_us] eCW1 ([facility]) Body weight Measured 152 [lb_av] 152 [lb_av] eC W1 ([facility]) Patient Treatment Plan of Care Planned Activity Planned Date Details Description Data Source (s) Fluconazole 150 MG Oral Tablet [Diflucan] 03/15/2020 12:00:00 AM ES T eCW1 ([facility]) Ciprofloxacin 500 MG Oral Tablet [Cipro] 03/15/2020 12:00:00 AM EST eCW1 ([facility]) Fluconazole 150 MG Oral Tablet [Diflucan] 03/15/2020 12:00:00 AM ES T eCW1 ([facility]) Ciprofloxacin 500 MG Oral Tablet [Cipro] 03/15/2020 12:00:00 AM EST eCW1 ([facility]) Fluconazole 150 MG Oral Tablet [Diflucan] 03/15/2020 12:00:00 AM ES T eCW1 ([facility]) Ciprofloxacin 500 MG Oral Tablet [Cipro] 03/15/2020 12:00:00 AM EST eCW1 ([facility]) Fluconazole 150 MG Oral Tablet [Diflucan] 03/15/2020 12:00:00 AM ES T eCW1 ([facility]) Ciprofloxacin 500 MG Oral Tablet [Cipro] 03/15/2020 12:00:00 AM EST eCW1 ([facility]) Ciprofloxacin 250 MG Oral Tablet 03/05/2020 12:00:00 AM EST eCW1 ([facility]) Fluconazole 150 MG Oral Tablet 03/05/2020 12:00:00 AM EST eCW1 ([facility]) Ciprofloxacin 250 MG Oral Tablet 03/05/2020 12:00:00 AM EST eCW1 ([facility]) Fluconazole 150 MG Oral Tablet 03/05/2020 12:00:00 AM EST eCW1 ([facility]) One Touch Delica 33 gauge 09/19/2019 12:00:00 AM EDT eCW1 ([facility]) One Touch Delica 33 gauge 09/19/2019 12:00:00 AM EDT eCW1 ([facility]) One Touch Delica 33 gauge 09/19/2019 12:00:00 AM EDT eCW1 ([facility]) One Touch Delica 33 gauge 09/19/2019 12:00:00 AM EDT eCW1 ([facility]) One Touch Delica 33 gauge 09/19/2019 12:00:00 AM EDT eCW1 ([facility]) One Touch Delica 33 gauge 09/19/2019 12:00:00 AM EDT eCW1 ([facility]) OneTouch Verio w/Device 09/18/2019 12:00:00 AM EDT eCW1 ([facility]) OneTouch Verio - 09/18/2019 12:00:00 AM EDT eCW1 ([facility]) OneTouch Verio w/Device 09/18/2019 12:00:00 AM EDT eCW1 ([facility]) OneTouch Verio - 09/18/2019 12:00:00 AM EDT eCW1 ([facility]) OneTouch Verio - 09/18/2019 12:00:00 AM EDT eCW1 ([facility]) OneTouch Verio w/Device 09/18/2019 12:00:00 AM EDT eCW1 ([facility]) OneTouch Verio - 09/18/2019 12:00:00 AM EDT eCW1 ([facility]) OneTouch Verio w/Device 09/18/2019 12:00:00 AM EDT eCW1 ([facility]) OneTouch Verio - 09/18/2019 12:00:00 AM EDT eCW1 ([facility]) OneTouch Verio w/Device 09/18/2019 12:00:00 AM EDT eCW1 ([facility]) OneTouch Verio w/Device 09/18/2019 12:00:00 AM EDT eCW1 ([facility]) OneTouch Verio - 09/18/2019 12:00:00 AM EDT eCW1 ([facility]) Estrogens, Conjugated ([facility]) 0.625 MG/ML Vaginal Cream [Premarin] 08/27/2019 12:00:00 AM EDT eCW1 ([facility]) Estrogens, Conjugated ([facility]) 0.625 MG/ML Vaginal Cream [Premarin] 08/27/2019 12:00:00 AM EDT eCW1 ([facility]) Estrogens, Conjugated ([facility]) 0.625 MG/ML Vaginal Cream [Premarin] 08/27/2019 12:00:00 AM EDT eCW1 ([facility]) Estrogens, Conjugated ([facility]) 0.625 MG/ML Vaginal Cream [Premarin] 08/27/2019 12:00:00 AM EDT eCW1 ([facility]) Estrogens, Conjugated ([facility]) 0.625 MG/ML Vaginal Cream [Premarin] 08/27/2019 12:00:00 AM EDT eCW1 ([facility]) Estrogens, Conjugated ([facility]) 0.625 MG/ML Vaginal Cream [Premarin] 08/27/2019 12:00:00 AM EDT eCW1 ([facility]) Estrogens, Conjugated ([facility]) 0.625 MG/ML Vaginal Cream [Premarin] 08/27/2019 12:00:00 AM EDT eCW1 ([facility]) Ketorolac Tromethamine 4 MG/ML Ophthalmic Solution 07/18/2019 12 :00:00 AM EDT eCW1 ([facility]) Metformin hydrochloride 500 MG Oral Tablet 04/30/2019 12:00:[address] eCW1 ([facility]) Metformin hydrochloride 500 MG Oral Tablet 04/30/2019 12:00:[address] eCW1 ([facility]) Metformin hydrochloride 500 MG Oral Tablet 04/30/2019 12:00:[address] eCW1 ([facility]) benzonatate 200 MG Oral Capsule 04/30/2019 12:00:00 AM EST eCW1 ([facility]) Metformin hydrochloride 500 MG Oral Tablet 04/30/2019 12:00:[address] eCW1 ([facility]) benzonatate 200 MG Oral Capsule 04/30/2019 12:00:00 AM EST eCW1 ([facility]) Metformin hydrochloride 500 MG Oral Tablet 04/30/2019 12:00:[address] eCW1 ([facility]) benzonatate 200 MG Oral Capsule 04/30/2019 12:00:00 AM EST eCW1 ([facility]) Metformin hydrochloride 500 MG Oral Tablet 04/30/2019 12:00:[address] eCW1 ([facility]) Metformin hydrochloride 500 MG Oral Tablet 04/30/2019 12:00:[address] eCW1 ([facility]) benzonatate 200 MG Oral Capsule 04/30/2019 12:00:00 AM EST eCW1 ([facility]) Metformin hydrochloride 500 MG Oral Tablet 04/30/2019 12:00:[address] eCW1 ([facility]) Metformin hydrochloride 500 MG Oral Tablet 04/30/2019 12:00:[address] eCW1 ([facility]) benzonatate 200 MG Oral Capsule 04/30/2019 12:00:00 AM EST eCW1 ([facility]) Metformin hydrochloride 500 MG Oral Tablet 04/30/2019 12:00:[address] eCW1 ([facility]) Metformin hydrochloride 500 MG Oral Tablet 04/30/2019 12:00:[address] eCW1 ([facility]) benzonatate 200 MG Oral Capsule 04/30/2019 12:00:00 AM EST eCW1 ([facility]) benzonatate 200 MG Oral Capsule 04/04/2019 12:00:00 AM EST eCW1 ([facility]) Prednisone 20 MG Oral Tablet 04/04/2019 12:00:00 AM EST eCW1 ([facility]) Azithromycin 250 MG Oral Tablet 03/24/2019 12:00:00 AM EST eCW1 ([facility]) PredniSONE 10 MG 03/20/2019 12:00:00 AM EST eCW1 ([facility]) Levofloxacin 750 MG Oral Tablet [Levaquin] 03/20/2019 12:00:[address] eCW1 ([facility])
--- OUTSIDE RECORDS SUMMARY | 2020-05-05 16:27 | CCD ---
Author Author [facility] Organization [facility] Address Unknown Phone Unavailable Care Team Providers Care Ophthalmology Surgical Technician Name Role Phone PETROFF, BRIGIDO PA Unavailable [...] Unavailable Sukhwinder Leal MD Unavailable Unavailable LealSukhwinder dillard MD Unavailable Unavailable LealSukhwinder dillard MD Unavailable Unavailable LealSukhwinder MD Unavailable Unavailable LealSukhwinder dillard MD Unavailable Unavailable LealSukhwinder dillard MD Unavailable Unavailable LealSukhwinder dillard MD Unavailable Unavailable LealSukhwinder dillard MD Unavailable Unavailable LealSukhwinder dillard MD Unavailable Unavailable LealSukhwinder dillard MD Unavailable Unavailable LealSukhwinder dillard MD Unavailable Unavailable LealSukhwinder dillard MD Unavailable Unavailable LealSukhwinder dillard MD Unavailable Unavailable LealSukhwinder dillard MD Unavailable Unavailable LealSukhwinder dillard MD Unavailable Unavailable LealSukhwinder dillard MD Unavailable Unavailable LealSukhwinder dillard MD Unavailable Unavailable LealSukhwinder dillard MD Unavailable Unavailable LealSukhwinder dillard MD Unavailable Unavailable LealSukhwinder dillard MD Unavailable Unavailable LealSukhwinder dillard MD Unavailable Unavailable LealSukhwinder dillard MD Unavailable Unavailable LealSukhwinder dillard MD Unavailable Unavailable Leal, Sukhwinder Manzo MD Unavailable Unavailable LealSukhwinder dillard MD Unavailable Unavailable LealSukhwinder dillard MD Unavailable Unavailable LealSukhwinder dillard MD Unavailable Unavailable Sukhwinder Leal MD Unavailable Unavailable LealSukhwinder dillard MD Unavailable Unavailable LealSukhwinder dillard MD Unavailable Unavailable LealSukhwinder dillard MD Unavailable Unavailable Justyna, A Radha AIR TRAFFIC CONTROL SUPERVISOR Unavailable Unavailable Justyna, A Radha AIR TRAFFIC CONTROL SUPERVISOR Unavailable Unavailable Justyna, A Radha AIR TRAFFIC CONTROL SUPERVISOR Unavailable Unavailable Justyna, A Radha AIR TRAFFIC CONTROL SUPERVISOR Unavailable Unavailable Justyna, A Radha AIR TRAFFIC CONTROL SUPERVISOR Unavailable Unavailable Justyna, A Radha AIR TRAFFIC CONTROL SUPERVISOR Unavailable Unavailable Justyna, A Radha AIR TRAFFIC CONTROL SUPERVISOR Unavailable Unavailable Justyna, A Radha AIR TRAFFIC CONTROL SUPERVISOR Unavailable Unavailable Justyna, A Radha AIR TRAFFIC CONTROL SUPERVISOR Unavailable Unavailable Justyna, A Radha AIR TRAFFIC CONTROL SUPERVISOR Unavailable Unavailable Justyna, A Radha AIR TRAFFIC CONTROL SUPERVISOR Unavailable Unavailable Justyna, A Radha AIR TRAFFIC CONTROL SUPERVISOR Unavailable Unavailable Justyna, A Radha AIR TRAFFIC CONTROL SUPERVISOR Unavailable Unavailable Justyna, A Radha AIR TRAFFIC CONTROL SUPERVISOR Unavailable Unavailable Justyna, A Radha AIR TRAFFIC CONTROL SUPERVISOR Unavailable Unavailable Justyna, A Radha AIR TRAFFIC CONTROL SUPERVISOR Unavailable Unavailable Justyna, A Radha AIR TRAFFIC CONTROL SUPERVISOR Unavailable Unavailable Justyna, A Radha AIR TRAFFIC CONTROL SUPERVISOR Unavailable Unavailable Justyna, A Radha AIR TRAFFIC CONTROL SUPERVISOR Unavailable Unavailable Jutsyna, A Radha AIR TRAFFIC CONTROL SUPERVISOR Unavailable Unavailable Justyna, A Radha AIR TRAFFIC CONTROL SUPERVISOR Unavailable Unavailable Justyna, A Radha AIR TRAFFIC CONTROL SUPERVISOR Unavailable Unavailable Justyna, A Radha AIR TRAFFIC CONTROL SUPERVISOR Unavailable Unavailable Justyna, A Radha AIR TRAFFIC CONTROL SUPERVISOR Unavailable Unavailable Justyna, A Radha AIR TRAFFIC CONTROL SUPERVISOR Unavailable Unavailable Justyna, A Radha AIR TRAFFIC CONTROL SUPERVISOR Unavailable Unavailable Justyna, A Radha AIR TRAFFIC CONTROL SUPERVISOR Unavailable Unavailable Justyna, A Radha AIR TRAFFIC CONTROL SUPERVISOR Unavailable Unavailable Justyna, A Radha AIR TRAFFIC CONTROL SUPERVISOR Unavailable Unavailable Justyna, A Radha AIR TRAFFIC CONTROL SUPERVISOR Unavailable Unavailable Justyna, A Radha AIR TRAFFIC CONTROL SUPERVISOR Unavailable Unavailable Justyna, A Radha AIR TRAFFIC CONTROL SUPERVISOR Unavailable Unavailable Justyna, A Radha AIR TRAFFIC CONTROL SUPERVISOR Unavailable Unavailable Justyna, A Radha AIR TRAFFIC CONTROL SUPERVISOR Unavailable Unavailable Justyna, A Radha AIR TRAFFIC CONTROL SUPERVISOR Unavailable Unavailable Justyna, A Radha AIR TRAFFIC CONTROL SUPERVISOR Unavailable Unavailable Justyna, A Radha AIR TRAFFIC CONTROL SUPERVISOR Unavailable Unavailable Justyna, A Radha AIR TRAFFIC CONTROL SUPERVISOR Unavailable Unavailable Justyna, A Radha AIR TRAFFIC CONTROL SUPERVISOR Unavailable Unavailable Justyna, A Radha AIR TRAFFIC CONTROL SUPERVISOR Unavailable Unavailable Justyna, A Radha AIR TRAFFIC CONTROL SUPERVISOR Unavailable Unavailable Justyna, A Radha AIR TRAFFIC CONTROL SUPERVISOR Unavailable Unavailable Justyna, A Radha AIR TRAFFIC CONTROL SUPERVISOR Unavailable Unavailable Justyna, A Radha AIR TRAFFIC CONTROL SUPERVISOR Unavailable Unavailable Jennifer, [facility] Marci AIR TRAFFIC CONTROL SUPERVISOR-C Unavailable Unavailabl e Jennifer, [facility] Marci AIR TRAFFIC CONTROL SUPERVISOR-C Unavailable Unavailabl e Jennifer, [facility] Marci AIR TRAFFIC CONTROL SUPERVISOR-C Unavailable Unavailabl e Jennifer, [facility] Marci AIR TRAFFIC CONTROL SUPERVISOR-C Unavailable Unavailabl e Jennifer, [facility] Marci AIR TRAFFIC CONTROL SUPERVISOR-C Unavailable Unavailabl e Jennifer, [facility] Marci AIR TRAFFIC CONTROL SUPERVISOR-C Unavailable Unavailabl e Jennifer, [facility] Marci AIR TRAFFIC CONTROL SUPERVISOR-C Unavailable Unavailabl e Jennifer, [facility] Marci AIR TRAFFIC CONTROL SUPERVISOR-C Unavailable Unavailabl e Jennifer, [facility] Marci AIR TRAFFIC CONTROL SUPERVISOR-C Unavailable Unavailabl e Jennifer, [facility] Marci AIR TRAFFIC CONTROL SUPERVISOR-C Unavailable Unavailabl e Jennifer, [facility] Marci AIR TRAFFIC CONTROL SUPERVISOR-C Unavailable Unavailabl e Jennifer, [facility] Marci AIR TRAFFIC CONTROL SUPERVISOR-C Unavailable Unavailabl e Jennifer, Jeanne Henley Marci AIR TRAFFIC CONTROL SUPERVISOR-C Unavailable Unavailabl e Jennifer, Jeanne Henley Marci AIR TRAFFIC CONTROL SUPERVISOR-C Unavailable Unavailabl e Jennifer, Jeanne W Marci AIR TRAFFIC CONTROL SUPERVISOR-C Unavailable Unavailabl e Jennifer, Jeanne Henley Marci AIR TRAFFIC CONTROL SUPERVISOR-C Unavailable Unavailabl e Jennifer, Jeanne W Marci AIR TRAFFIC CONTROL SUPERVISOR-C Unavailable Unavailabl e Jennifer, Gavininagilma W Marci AIR TRAFFIC CONTROL SUPERVISOR-C Unavailable Unavailabl e Jennifer, Reginagilma W Marci AIR TRAFFIC CONTROL SUPERVISOR-C Unavailable Unavailabl e Jennifer, Reginagilma W Marci AIR TRAFFIC CONTROL SUPERVISOR-C Unavailable Unavailabl e Jennifer, Gavininagilma W Marci AIR TRAFFIC CONTROL SUPERVISOR-C Unavailable Unavailabl e Jennifer, Jeanne W Marci AIR TRAFFIC CONTROL SUPERVISOR-C Unavailable Unavailabl e Jennifer, Jeanne W Marci AIR TRAFFIC CONTROL SUPERVISOR-C Unavailable Unavailabl e Jennifer, Regjulissa W Marci AIR TRAFFIC CONTROL SUPERVISOR-C Unavailable Unavailabl e Jennifer, Jeanne W Marci AIR TRAFFIC CONTROL SUPERVISOR-C Unavailable Unavailabl e Jennifer, Jeanne W Marci AIR TRAFFIC CONTROL SUPERVISOR-C Unavailable Unavailabl e Jennifer, Jeanne W Marci AIR TRAFFIC CONTROL SUPERVISOR-C Unavailable Unavailabl e Jennifer, Jeanne W Marci AIR TRAFFIC CONTROL SUPERVISOR-C Unavailable Unavailabl e Jennifer, Jeanne Henley Marci AIR TRAFFIC CONTROL SUPERVISOR-C Unavailable Unavailabl e Jennifer, Jeanne W Marci AIR TRAFFIC CONTROL SUPERVISOR-C Unavailable Unavailabl e Jennifer, Jeanne W Marci AIR TRAFFIC CONTROL SUPERVISOR-C Unavailable Unavailabl e Jennifer, Jeanne W Marci AIR TRAFFIC CONTROL SUPERVISOR-C Unavailable Unavailabl e Paul, Carolynn IN HOME AIDE Unavailable Unavailable Paul, Carolynn IN HOME AIDE Unavailable Unavailable Paul, Carolynn IN HOME AIDE Unavailable Unavailable Paul, Carolynn IN HOME AIDE Unavailable Unavailable Paul, Carolynn IN HOME AIDE Unavailable Unavailable Paul, Carolynn IN HOME AIDE Unavailable Unavailable Paul, Carolynn IN HOME AIDE Unavailable Unavailable Paul, Carolynn IN HOME AIDE Unavailable Unavailable Paul, Carolynn IN HOME AIDE Unavailable Unavailable Paul, Carolynn IN HOME AIDE Unavailable Unavailable Paul, Carolynn IN HOME AIDE Unavailable Unavailable MARU QUINTANILLA MD Unavailable Unavailable [...] Unavailable Unavailable MARU QUINTANILLA MD Unavailable Unavailable CHROSTOWSKILARYINA MD Unavailable Unavailable CHROSTOWSKILARYINA MD Unavailable Unavailable CHROSTOWSKILARYINA MD Unavailable Unavailable CHROSTOWSKILARYINA MD Unavailable Unavailable CHROSTOWSKI INA MD Unavailable Unavailable CHROSTOWSKI INA MD Unavailable Unavailable CHROSTOWSKI, INA MD Unavailable Unavailable CHROSTOWSKI INA MD Unavailable Unavailable CHROSTOWSKI INA MD Unavailable Unavailable CHROSTOWSKI INA MD Unavailable Unavailable CHROSTOWSKI, INA MD Unavailable Unavailable CHROSTOWSKI, INA MD Unavailable Unavailable CHROSTOWSKI, INA MD Unavailable Unavailable CHROSTOWSKI, INA MD Unavailable Unavailable CHROSTOWSKI INA MD Unavailable Unavailable CHROSTOWSKILARYINA MD Unavailable Unavailable CHROSTOWSKI INA MD Unavailable Unavailable CHROSTOWSKILARYINA MD Unavailable Unavailable CHROSTOWSKI INA MD Unavailable Unavailable CHROSTOWSKILARYINA MD Unavailable Unavailable CHROSTOWSKI INA MD Unavailable Unavailable CHROSTOWSKILARYINA MD Unavailable Unavailable CHROSTOWSKI INA MD Unavailable Unavailable CHROSTOWSKI INA MD Unavailable Unavailable CHROSTOWSKI INA MD Unavailable Unavailable CHROSTOWSKI INA MD Unavailable Unavailable CHROSTOWSKI INA MD Unavailable Unavailable CHROSTOWSKILARYINA MD Unavailable Unavailable CHROSTOWSKI INA MD Unavailable Unavailable CHROSTOWSKI INA MD Unavailable Unavailable CHROSTOWSKI INA MD Unavailable Unavailable CHROSTOWSKI INA MD Unavailable Unavailable CHROSTOWSKILARYINA MD Unavailable Unavailable CHROSTOWSKI INA MD Unavailable Unavailable CHROSTOWSKILARYINA MD Unavailable Unavailable CHROSTOWSKI, INA MD Unavailable Unavailable CHROSTOWSKI INA MD Unavailable Unavailable CHROSTOWSKI, INA MD Unavailable Unavailable CHROSTOWSKI, INA MD Unavailable Unavailable CHROSTOWSKI, INA MD Unavailable Unavailable Shannon, Trina AIR TRAFFIC CONTROL SUPERVISOR Unavailable Unavailable Shannon, Trina AIR TRAFFIC CONTROL SUPERVISOR Unavailable Unavailable Shannon, Tirna AIR TRAFFIC CONTROL SUPERVISOR Unavailable Unavailable Shannon, Trina AIR TRAFFIC CONTROL SUPERVISOR Unavailable Unavailable Shannon, Trina AIR TRAFFIC CONTROL SUPERVISOR Unavailable Unavailable Shannon, Trina AIR TRAFFIC CONTROL SUPERVISOR Unavailable Unavailable Shannon, Trina AIR TRAFFIC CONTROL SUPERVISOR Unavailable Unavailable Shannon, Trina AIR TRAFFIC CONTROL SUPERVISOR Unavailable Unavailable Shannon, Trina AIR TRAFFIC CONTROL SUPERVISOR Unavailable Unavailable Shannon, Trina AIR TRAFFIC CONTROL SUPERVISOR Unavailable Unavailable Shannon, Trina AIR TRAFFIC CONTROL SUPERVISOR Unavailable Unavailable Shannon, Trina AIR TRAFFIC CONTROL SUPERVISOR Unavailable Unavailable Shannon, Trina AIR TRAFFIC CONTROL SUPERVISOR Unavailable Unavailable Shannon, Trina AIR TRAFFIC CONTROL SUPERVISOR Unavailable Unavailable Shannon, Trina AIR TRAFFIC CONTROL SUPERVISOR Unavailable Unavailable Shannon, Trina AIR TRAFFIC CONTROL SUPERVISOR Unavailable Unavailable Shannon, Trina AIR TRAFFIC CONTROL SUPERVISOR Unavailable Unavailable Shannon, Trina AIR TRAFFIC CONTROL SUPERVISOR Unavailable Unavailable Shannon, Trina AIR TRAFFIC CONTROL SUPERVISOR Unavailable Unavailable Shannon, Trina AIR TRAFFIC CONTROL SUPERVISOR Unavailable Unavailable Shannon, Trina AIR TRAFFIC CONTROL SUPERVISOR Unavailable Unavailable Shannon, Trina AIR TRAFFIC CONTROL SUPERVISOR Unavailable Unavailable Shannon, Trina AIR TRAFFIC CONTROL SUPERVISOR Unavailable Unavailable Shannon, Trina AIR TRAFFIC CONTROL SUPERVISOR Unavailable Unavailable Shannon, Trina AIR TRAFFIC CONTROL SUPERVISOR Unavailable Unavailable Shannon, Trina AIR TRAFFIC CONTROL SUPERVISOR Unavailable Unavailable Shannon, Trina AIR TRAFFIC CONTROL SUPERVISOR Unavailable Unavailable Shannon, Trina AIR TRAFFIC CONTROL SUPERVISOR Unavailable Unavailable Shannon, Trina AIR TRAFFIC CONTROL SUPERVISOR Unavailable Unavailable Shannon, Trina AIR TRAFFIC CONTROL SUPERVISOR Unavailable Unavailable Shannon, Trina AIR TRAFFIC CONTROL SUPERVISOR Unavailable Unavailable Shannon, Trina AIR TRAFFIC CONTROL SUPERVISOR Unavailable Unavailable Shannon, Trina AIR TRAFFIC CONTROL SUPERVISOR Unavailable Unavailable Shannon, Trina AIR TRAFFIC CONTROL SUPERVISOR Unavailable Unavailable Shannon, Trina AIR TRAFFIC CONTROL SUPERVISOR Unavailable Unavailable Shannon, Trina AIR TRAFFIC CONTROL SUPERVISOR Unavailable Unavailable Camargo, Yoseph Zaldivar MD Unavailable [...] Unavailable Camargo, Yoseph Zaldivar MD Unavailable Unavailable CamargoYoseph MD Unavailable Unavailable Camargo, Yoseph Zaldivar MD Unavailable Unavailable Camargo, Yoseph Zaldivar MD Unavailable Unavailable CamargoYoseph MD Unavailable Unavailable CamargoYoseph MD Unavailable Unavailable CamargoYoseph MD Unavailable Unavailable CamargoYoseph MD Unavailable Unavailable CamargoYoseph MD Unavailable Unavailable CamargoYoseph MD Unavailable Unavailable CamargoYoseph MD Unavailable Unavailable Camargo, Yoseph Zaldivar MD Unavailable Unavailable CamargoYoseph MD Unavailable Unavailable Camargo, Yoseph Zaldivar MD Unavailable Unavailable CamargoYoseph MD Unavailable Unavailable Camargo, Yoseph Zaldivar MD Unavailable Unavailable Camargo, Yoseph Zaldivar MD Unavailable Unavailable Camargo, Yoseph Zaldivar MD Unavailable Unavailable CamargoYoseph robles MD Unavailable Unavailable CamargoYoseph robles MD Unavailable Unavailable Camargo, Yoseph Zaldivar MD [...] Zen MD Unavailable Unavailable Camargo, L Zen LAMB Unavailable Unavailable Camargo, L Zen MD Unavailable Unavailable Daiana, L Delia IN HOME AIDE Unavailable Unavailable Daiana, L Delia IN HOME AIDE Unavailable Unavailable Daiana, L Delia IN HOME AIDE Unavailable Unavailable Daiana, L Delia IN HOME AIDE Unavailable Unavailable Daiana, L Delia IN HOME AIDE Unavailable Unavailable Daiana, L Delia IN HOME AIDE Unavailable Unavailable Daiana, L Delia IN HOME AIDE Unavailable Unavailable Daiana, L Delia IN HOME AIDE Unavailable Unavailable Daiana, L Delia IN HOME AIDE Unavailable Unavailable Daiana, L Delia IN HOME AIDE Unavailable Unavailable Daiana, L Delia IN HOME AIDE Unavailable Unavailable Daiana, L Delia IN HOME AIDE Unavailable Unavailable Daiana, L Delia IN HOME AIDE Unavailable Unavailable Daiana, L Delia IN HOME AIDE Unavailable Unavailable Daiana, L Delia IN HOME AIDE Unavailable Unavailable Daiana, L Delia IN HOME AIDE Unavailable Unavailable Daiana, L Delia IN HOME AIDE Unavailable Unavailable Daiana, L Delia IN HOME AIDE Unavailable Unavailable Daiana, L Delia IN HOME AIDE Unavailable Unavailable Daiana, L Delia IN HOME AIDE Unavailable Unavailable Daiana, L Delia IN HOME AIDE Unavailable Unavailable Daiana, L Delia IN HOME AIDE Unavailable Unavailable Re-disclosure Warning The records that [...] is protected by Article 27-F of the [facility] Public Health law. If you continue you may have access to information: Regarding HIV / AIDS; Provided by facilities licensed or operated by the [facility] Office of Mental Health; or Provided by the [facility] Office for People With Developmental Disabilities. If such information is present, then the following [facility] mandated warning applies: This information has [...] law may result in a fine or assisted sentence or both. A general authorization for the release of medical or other information is NOT sufficient authorization for further disc losure. Allergies and Adverse Reactions Type Description Substance Reaction Status Data Source(s ) Drug allergy Penicillin (For Allergies Use Only) Drug allergy Hives Active eCW1 ([facility]) Parafon Forte DSC Parafon Forte DSC Parafon Forte DSC RASH Acti ve eCW1 ([facility]) bees bees bees Anaphylaxis Active eCW1 ([facility]) sulfa sulfa sulfa hives Active eCW1 ([facility]) pravachol pravachol Pravastatin Sodium 40 MG Oral Ta blet [Pravachol] body aches Active eCW1 ([facility]) Parafon Forte DSC Parafon Forte DSC Parafon Forte DSC RASH Acti ve eCW1 ([facility]) pravachol pravachol Pravastatin Sodium 40 MG Oral Ta blet [Pravachol] body aches Active eCW1 ([facility]) bees bees bees Anaphylaxis Active eCW1 ([facility]) sulfa sulfa sulfa hives Active eCW1 ([facility]) Parafon Forte DSC Parafon Forte DSC Parafon Forte DSC RASH Acti ve eCW1 ([facility]) bees bees bees Anaphylaxis Active eCW1 ([facility]) sulfa sulfa sulfa hives Active eCW1 ([facility]) pravachol pravachol Pravastatin Sodium 40 MG Oral Ta blet [Pravachol] body aches Active eCW1 ([facility]) Penicillin G Sodium Penicillin G Sodium Penicillin G Sodium 567174 UNT/ML Injectable Solution hives Active eCW1 ([facility]) Sulfacet-R Sulfacet-R Sulfacet-R hives Active eCW1 ([facility]) Parafon Forte DSC Parafon Forte DSC Parafon Forte DSC RASH Acti ve eCW1 ([facility]) bees bees bees Anaphylaxis Active eCW1 ([facility]) sulfa sulfa sulfa hives Active eCW1 ([facility]) pravachol pravachol Pravastatin Sodium 40 MG Oral Ta blet [Pravachol] body aches Active eCW1 ([facility]) Parafon Forte DSC Parafon Forte DSC Parafon Forte DSC RASH Acti ve eCW1 ([facility]) sulfa sulfa sulfa hives Active eCW1 ([facility]) bees bees bees Anaphylaxis Active eCW1 ([facility]) pravachol pravachol Pravastatin Sodium 40 MG Oral Ta blet [Pravachol] body aches Active eCW1 ([facility]) Family History Family Member Name Family Member Gender Family Member Status Date o f Status Description Data Source(s) Unknown Unknown Problem MEDENT ([facility]) Encounters Encounter Providers Location Date Indications Data Source(s ) Outpatient Attender: LU roy 04/25/2020 08:35:00 AM EST [facility] ([facility]) Office Visit Attender: MARU QUINTANILLA MD Physical Therapy 01:45:00 PM EST [facility] ([facility]) Outpatient [address] [facility] [place] [address] 04/07/2020 12:00:00 AM EST eCW1 ([facility]) Unknown [address] [facility] [address] [place] [address] 03/16/2020 12:00:00 AM EST eCW1 ([facility]) Outpatient [address] [facility] [place] [address] 03/15/2020 12:00:00 AM EST [facility] [place] [address] [facility] [place] [address] 03/15/2020 12:00:00 AM EST [facility]CW1 [facility] [place] [address] [facility] [place] [address] 03/15/2020 12:00:00 AM EST eCW1 ([facility]) Unknown [address] [facility] [place] [address] 03/05/2020 12:00:00 AM EST [facility]CW1 [facility] Outpatient [address] [facility] [place] [address] 03/02/2020 12:00:00 AM EST [facility]CW1 [facility] Emergency Attender: BRIGIDO Brocker: Jovany Leal MD 01/30/2020 03:46:00 PM EST - 01/30/2020 03:55:00 PM [facility] Patient discharged. [place] [address] [facility] [place] [address] 01/23/2020 12:00:00 AM EDT eCW1 [facility]) Outpatient Attender: Delia Rea/Alta/Rajeev/Reindl 01/08/2020 02:30:00 PM EDT MED[facility] ([facility]) Unknown [address] [facility] [place] [address] 01/07/2020 12:00:00 AM EDT [facility] Unknown [address] [facility] [place] [address] 01/07/2020 12:00:00 AM EDT eCW1 [facility]) Outpatient Attender: Carolynn flores 11/19/2019 10:15:00 AM EDT [facility] ([facility] Outpatient Attender: Delia Rea/Alta/Rajeev/Reindl 10/22/2019 11:00:00 AM EDT MED[facility] ([facility]) Office Visit Attender: Zen Camargo MD Physical Therapy 2019 02:30:00 PM EDT [facility] ([facility]) [place] [address] [facility] [address] 10/10/2019 12:00:00 AM EDT eCW1 ([facility]) [place] [address] [facility] [place] [address] 09/12/2019 12:00:00 AM EDT eCW1 ([facility]) [place] [address] [facility] [place] [address] 09/11/2019 12:00:00 AM EDT eCW1 ([facility]) Office Visit Attender: MARU QUINTANILLA MD Physical Therapy 09:15:00 AM EDT MED[facility] ([facility]) Office Visit Attender: MARU QUINTANILLA MD Physical Therapy 11:15:00 AM EDT MEDENT ([facility]) ( [place]NN) [facility] 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 [address] [place] [address] 08/27/2019 12:00:00 AM EDT eCW1 (Replaced by [facility]) Outpatient Referrer: MARU QUINTANILLA MD 08/21/2019 02:44:0 [...] 08/14/2019 12:13:00 PM EDT [facility] [address] [facility] [address] 08/14/2019 12:00:00 AM EDT eCW1 ([facility]) [facility] [place] [address] [facility] [address] 08/13/2019 12:00:00 AM EDT eCW1 ([facility]) Outpatient Attender: INA HERRING MD Main Office 08/07/2019 01:45:00 PM EDT [facility] ([facility]) OFFICE OUTPATIENT NEW 30 MINUTES Attender: MARU QUINTANILLA MD Ph ysical Therapy 08/07/2019 10:00:00 AM EDT MED[facility] ([facility]) Outpatient Attender: Scott Chaudhari/Helena/Rajeev/Davian ndl 07/23/2019 10:30:00 AM EDT [facility] ([facility]) Outpatient Attender: INA HERRING MD Main Office 07/23/2019 09:15:00 AM EDT [facility] ([facility]) [address] [place] [address] 07/21/2019 12:00:00 AM EDT eCW1 ([facility]) [address] [place] [address] 07/18/2019 12:00:00 AM EDT eCW1 ([facility]) [address] [place] [address] 07/18/2019 12:00:00 AM EDT eCW1 ([facility]) [address] [place] [address] 07/18/2019 12:00:00 AM EDT eCW1 ([facility]) [address] [place] [address] 07/18/2019 12:00:00 AM EDT eCW1 ([facility]) [address] [place] [address] 07/14/2019 12:00:00 AM EDT eCW1 ([facility]) [address] [place] [address] 07/10/2019 12:00:00 AM EDT eCW1 ([facility] [address] [address] 05/30/2019 12:00:00 AM EST eCW1 ([facility]) Outpatient Attender: Vern Rea/Helena/Rajeev/Re indl 05/29/2019 12:00:00 PM EST [facility] ([facility]) Outpatient 05/28/2019 11:56:00 AM EST [facility] [address] [address] 05/21/2019 12:00:00 AM EST eCW1 [facility] Outpatient Attender: Vern Rea/Helena/Rajeev/Re indl 04/30/2019 12:00:00 PM EST [facility] ([facility]) [address] [address] 04/30/2019 12:00:00 AM EST eCW1 ([facility]) [address] [place] [address] 04/30/2019 12:00:00 AM EST eCW1 ([facility]) Outpatient 04/17/2019 01:48:00 PM EST [facility] Outpatient Attender: Scott Dougherty DO Main Office 04/16/2019 08:30:00 AM EST MEDENT ([facility] [address] [place] [address] 04/09/2019 12:00:00 AM EST eCW1 ([facility]) Outpatient Attender: Delia Ahmadi IN HOME AIDE Main Office 04/08/2019 09:00:00 AM EST MEDENT ([facility] Outpatient Attender: Marci Rodriguez [employer] CONTR[employer] SUPERVISOR-CReferrer: Jovany Leal MD 04/04/2019 12:16:00 PM EST - 04/04/2019 12:16:00 PM EST [facility] Admission cancelled. Disregard status an d admitted date. Outpatient Attender: Marci Robinsgrace CROW 04/04/2019 11:30:0 0 AM EST [facility] 0 12:00:00 AM EST eCW1 ([facility]) [address] [address] 03/24/2019 12:00:00 AM EST eCW1 ([facility]) [address] [place] [address] 03/24/2019 12:00:00 AM EST eCW1 ([facility]) [address] [place] [address] 03/21/2019 12:00:00 AM EST eCW1 ([facility]) [address], [place] [address] 03/20/2019 12:00:00 AM EST eCW1 ([facility]) Outpatient Attender: Radha Jansen [facility] 12/11/2018 10:56 :00 AM [facility] Outpatient Attender: DAVION MCNULTYCReferrer: Won Leal MD EMERGENCY ROOM-LAB REF 10/30/2018 01:54:00 PM [facility] - 10/30/2018 01:54:00 PM [facility] Outpatient Attender: DAVION LOYOLA 10/30/2018 01:30:00 PM [facility] Outpatient Attender: Trina Shannon [facility] 06/29 02:20:00 PM [facility] - 06/29/2017 02:20:00 PM [facility] Medications Medication Brand Name Start Date [...] 04/25/2020 12:00:00 AM EST ORAL active MEDENT ([facility]) Prednisone 20 MG Oral Tablet Prednisone 04/25/2020 12:00:00 AM EST ORAL active MEDENT ([facility]) 20 mg 04/25/2020 12:00:00 AM EST tablet 10 TAKE TWO TABLETS BY MOUTH EVERY DAY FOR 5 DAYS TAKE TWO TABLETS BY MOUTH EVERY DAY FOR 5 DAYS SOLD: 021 [facility] Doxycycline Monohydrate 100 MG Oral Capsule Doxycycline [place] hydrate 04/25/2020 12:00:00 AM EST ORAL active M EDENT ([facility]) 100 mg 04/25/2020 12:00:00 AM EST capsule [...] ONCE IN 3 DAYS SOLD: 03/31/2020 [facility] Fluconazole 150 MG Oral Tablet [Diflucan] Diflucan 150 MG Di flucan 150 MG 03/15/2020 12:00:00 AM EST 1.0 {tablet} active Diflucan 150 MG eCW1 ([facility]) Ciprofloxacin 500 MG Oral Tablet [Cipro] Cipro 500 MG Cipro 500 MG 03/15/2020 12:00:00 AM EST 1.0 {tablet} suspended Cipro 500 MG eCW1 ([facility]) Ciprofloxacin 500 MG Oral Tablet [Cipro] Cipro 500 MG Cipro 500 MG 03/15/2020 12:00:00 AM EST 1.0 {tablet} active Ci pro 500 MG eCW1 ([facility]) Fluconazole 150 MG Oral Tablet [Diflucan] Diflucan 150 MG Di flucan 150 MG 03/15/2020 12:00:00 AM EST 1.0 {tablet} suspended Diflucan 150 MG eCW1 ([facility]) Ciprofloxacin 500 MG Oral Tablet [Cipro] Cipro 500 MG Cipro 500 MG 03/15/2020 12:00:00 AM EST 1.0 {tablet} active Ci pro 500 MG eCW1 ([facility]) Fluconazole 150 MG Oral Tablet [Diflucan] Diflucan 150 MG Di flucan 150 MG 03/15/2020 12:00:00 AM EST 1.0 {tablet} active Diflucan 150 MG eCW1 ([facility]) Ciprofloxacin 500 MG Oral Tablet [Cipro] Cipro 500 MG Cipro 500 MG 03/15/2020 12:00:00 AM EST 1.0 {tablet} active Ci pro 500 MG eCW1 ([facility]) Ciprofloxacin 500 MG Oral Tablet [Cipro] Cipro 500 MG Cipro 500 MG 03/15/2020 12:00:00 AM EST 1.0 {tablet} active Ci pro 500 MG eCW1 ([facility]) Fluconazole 150 MG Oral Tablet [Diflucan] Diflucan 150 MG Di flucan 150 MG 03/15/2020 12:00:00 AM EST 1.0 {tablet} active Diflucan 150 MG eCW1 ([facility]) Fluconazole 150 MG Oral Tablet [Diflucan] Diflucan 150 MG Di flucan 150 MG 03/15/2020 12:00:00 AM EST 1.0 {tablet} active Diflucan 150 MG eCW1 ([facility]) 500 mg 03/15/2020 12:00:00 AM EST tablet 14 TAKE ONE TABLET BY MOUTH EVERY 12 HOURS FOR 7 DAYS TAKE ONE TABLET BY MOUTH EVERY 12 HOURS FOR 7 DAYS [facility] Fluconazole 150 MG Oral Tablet Fluconazole 150 MG 03/05/2020 12:00: 00 AM EST 1.0 {tablet} active Fluconazole 150 MG eCW1 ([facility]) Fluconazole 150 MG Oral Tablet Fluconazole 150 MG 03/05/2020 12:00: 00 AM EST 1.0 {tablet} suspended Fluconazole 150 M G eCW1 ([facility]) Ciprofloxacin 250 MG Oral Tablet Ciprofloxacin HCl 250 MG Ciprofloxacin HCl 250 MG 03/05/2020 12:00:00 AM EST 1.0 {tablet} activ e Ciprofloxacin HCl 250 MG eCW1 ([facility]) Fluconazole 150 MG Oral Tablet Fluconazole 150 MG 03/05/2020 12:00: 00 AM EST 1.0 {tablet} suspended Fluconazole 150 M G eCW1 ([facility]) Fluconazole 150 MG Oral Tablet Fluconazole 150 MG 03/05/2020 12:00: 00 AM EST 1.0 {tablet} suspended Fluconazole 150 M G eCW1 ([facility]) Fluconazole 150 MG Oral Tablet Fluconazole 150 MG 03/05/2020 12:00: 00 AM EST 1.0 {tablet} suspended Fluconazole 150 M G eCW1 ([facility]) Ciprofloxacin 250 MG Oral Tablet Ciprofloxacin HCl 250 MG Ciprofloxacin HCl 250 MG 03/05/2020 12:00:00 AM EST 1.0 {tablet} suspe nded Ciprofloxacin HCl 250 MG eCW1 ([facility]) Ciprofloxacin 250 MG Oral Tablet Ciprofloxacin HCl 250 MG Ciprofloxacin HCl 250 MG 03/05/2020 12:00:00 AM EST 1.0 {tablet} activ e Ciprofloxacin HCl 250 MG eCW1 ([facility]) Ciprofloxacin 250 MG Oral Tablet Ciprofloxacin HCl 250 MG Ciprofloxacin HCl 250 MG 03/05/2020 12:00:00 AM EST 1.0 {tablet} suspe nded Ciprofloxacin HCl 250 MG eCW1 ([facility]) Fluconazole 150 MG Oral Tablet Fluconazole 150 MG 03/05/2020 12:00: 00 AM EST 1.0 {tablet} active Fluconazole 150 MG eCW1 ([facility]) Fluconazole 150 MG Oral Tablet Fluconazole 150 MG 03/05/2020 12:00: 00 AM EST 1.0 {tablet} suspended Fluconazole 150 M G eCW1 ([facility]) Ciprofloxacin 250 MG Oral Tablet Ciprofloxacin HCl 250 MG Ciprofloxacin HCl 250 MG 03/05/2020 12:00:00 AM EST 1.0 {tablet} suspe nded Ciprofloxacin HCl 250 MG eCW1 ([facility]) 250 mg 03/05/2020 12:00:00 AM EST tablet 6 TAKE ONE TABLET BY MOUTH EVERY 12 HOURS TAKE ONE TABLET BY MOUTH EVERY 12 HOURS SOLD: 03/05/2020 [facility] Ciprofloxacin 250 MG Oral Tablet Ciprofloxacin HCl 250 MG Ciprofloxacin HCl 250 MG 03/05/2020 12:00:00 AM EST 1.0 {tablet} suspe nded Ciprofloxacin HCl 250 MG eCW1 ([facility]) 150 mg 03/05/2020 12:00:00 AM EST tablet 2 TAKE ONE TABLET BY MOUTH, REPEAT IN THREE DAYS TAKE ONE TABLET BY MOUTH, REPEAT IN THREE DAYS SOLD: 03/15/2020 [facility] Ciprofloxacin 250 MG Oral Tablet Ciprofloxacin HCl 250 MG Ciprofloxacin HCl 250 MG 03/05/2020 12:00:00 AM EST 1.0 {tablet} suspe nded Ciprofloxacin HCl 250 MG eCW1 ([facility]) 150 mg 03/05/2020 12:00:00 AM EST tablet [...] Euflexxa 01/09/2020 12:00:00 AM EDT active MEDENT ([facility] ) 10 mg 01/08/2020 12:00:00 AM [...] 01/08/2020 12:00:00 AM EDT ORAL active MEDENT ([facility]) Acetaminophen 325 MG / Hydrocodone Bitartrate 5 MG Ora l Tablet Hydrocodone-Acetaminophen 01/05/2020 12:00:00 AM EDT active MEDENT ([facility]) 100,000 unit/mL 12/18/2019 12:00:00 AM EDT suspension 200 TAKE 5ML BY MOUTH FOUR TIMES A DAY TAKE 5ML BY MOUTH FOUR TIMES A DAY SOLD: 12/23/2019 [facility] 20 mg 11/19/2019 12:00:00 AM EDT tablet 8 TAKE ONE TABLET BY MOUTH TWICE A DAY FOR 5 DAYS TAKE ONE TABLET BY MOUTH TWICE A DAY FOR 5 DAYS SOLD: 2019 [facility] Prednisone 20 MG Oral Tablet Prednisone 11/19/2019 12:00:00 AM EDT completed MEDENT ([facility]) 100 mg 11/19/2019 12:00:00 AM EDT tablet 20 TAKE ONE TABLET BY MOUTH TWICE A DAY FOR 10 DAYS TAKE ONE TABLET BY MOUTH TWICE A DAY FOR 10 DAYS SOLD: 11/19/2019 [facility] Doxycycline Monohydrate 100 MG Oral Tablet Doxycycline Monoh ydrate 11/19/2019 12:00:00 AM EDT ORAL completed MEDENT ([facility]) 10 mg 10/29/2019 12:00:00 AM EDT tablet 12 TAKE TWO TABLETS BY MOUTH EVERY DAY FOR 4 DAYS THEN TAKE ONE TABLET ONCE DAILY FOR 4 DAYS TAKE TWO TABLETS BY MOUTH EVERY DAY FOR 4 DAYS THEN TAKE ONE TABLET ONCE DAILY FOR 4 DAYS SOLD: 10/29/2019 [facility] 250 mg 10/27/2019 12:00:00 AM EDT tablet 6 TAKE TWO TABLETS BY MOUTH AT ONCE ON THE FIRST DAY THEN TAKE ONE DAILY THEREAFTER TAKE TWO TABLETS BY MOUTH AT ONCE ON THE FIRST DAY THEN TAKE ONE DAILY THEREAFTER SOLD: 10/27/2019 [facility] Azithromycin 250 MG Oral Tablet Azithromycin 10/27/2019 12:00:00 AM E DT ORAL completed MEDENT ([facility], ) Prednisone 10 MG Oral Tablet Prednisone 10/27/2019 12:00:00 AM EDT ORAL completed MEDENT ([facility], ) benzonatate 200 MG Oral Capsule Benzonatate 10/22/2019 12:00:00 AM EDT ORAL active MEDENT ([facility], ) Prednisone 10 MG Oral Tablet Prednisone 10/22/2019 12:00:00 AM EDT completed MEDENT ([facility], ) 60 ACTUAT formoterol fumarate 0.005 MG/A CTUAT / mometasone furoate 0.2 MG/ACTUAT Metered Dose Inhaler [Dulera] Dulera 10/22/2019 12:00:00 AM EDT RESPIRATORY completed MEDENT ([facility], ) One Touch Delica 33 gauge UNK 09/19/2019 12:00:00 AM EDT active One Touch Delica 33 gauge eCW1 ([facility]) One Touch Delica 33 gauge UNK 09/19/2019 12:00:00 AM EDT active One Touch Delica 33 gauge eCW1 ([facility]) One Touch Delica 33 gauge UNK 09/19/2019 12:00:00 AM EDT active One Touch Delica 33 gauge eCW1 ([facility]) BLOOD SUGAR DIAGNOSTIC 09/19/2019 12:00:00 AM EDT [...] active One Touch Delica 33 gauge eCW1 ([facility]) 33 gauge 09/19/2019 12:00:00 AM EDT misc 100 TEST DIRECTED TEST DIRECTED SOLD: 10/24/2019 [facility] One Touch Delica 33 gauge UNK 09/19/2019 12:00:00 AM EDT active One Touch Delica 33 gauge eCW1 ([facility]) One Touch Delica 33 gauge UNK 09/19/2019 12:00:00 AM EDT active One Touch Delica 33 gauge eCW1 ([facility]) One Touch Delica 33 gauge UNK 09/19/2019 12:00:00 AM EDT active One Touch Delica 33 gauge eCW1 ([facility]) One Touch Delica 33 gauge UNK 09/19/2019 12:00:00 AM EDT active One Touch Delica 33 gauge eCW1 ([facility]) One Touch Delica 33 gauge UNK 09/19/2019 12:00:00 AM EDT active One Touch Delica 33 gauge eCW1 ([facility]) One Touch Delica 33 gauge UNK 09/19/2019 12:00:00 AM EDT active One Touch Delica 33 gauge eCW1 ([facility]) 33 gauge 09/19/2019 12:00:00 AM EDT misc 100 TEST DIRECTED TEST DIRECTED SOLD: 09/21/2019 [facility] One Touch Delica 33 gauge UNK 09/19/2019 12:00:00 AM EDT active One Touch Delica 33 gauge eCW1 ([facility]) OneTouch Verio w/Device OneTouch Verio w/Device 09/18/2019 12:00:00 A M EDT active OneTouch Verio w/Dev ice eCW1 ([facility]) OneTouch Verio - OneTouch [employer] - 09/18/2019 12:00:00 AM EDT active OneTouch Verio - eCW1 ([facility]) OneTouch Verio - OneTouch Verio - 09/18/2019 12:00:00 AM EDT active OneTouch Verio - eCW1 ([facility]) OneTouch Verio w/Device OneTouch Verio w/Device 09/18/2019 12:00:00 A M EDT active OneTouch Verio w/Dev ice eCW1 ([facility]) OneTouch Verio w/Device OneTouch Verio w/Device 09/18/2019 12:00:00 A M EDT active OneTouch Verio w/Dev ice eCW1 ([facility]) OneTouch Verio w/Device OneTouch Verio w/Device 09/18/2019 12:00:00 A M EDT active OneTouch Verio w/Dev ice eCW1 ([facility]) OneTouch Verio - OneTouch Verio - 09/18/2019 12:00:00 AM EDT active OneTouch Verio - eCW1 ([facility]) OneTouch Verio w/Device OneTouch Verio w/Device 09/18/2019 12:00:00 A M EDT active OneTouch Verio w/Dev ice eCW1 ([facility]) OneTouch Verio - OneTouch Verio - 09/18/2019 12:00:00 AM EDT active OneTouch Verio - eCW1 ([facility]) OneTouch Verio w/Device OneTouch Verio w/Device 09/18/2019 12:00:00 A M EDT active OneTouch Verio w/Dev ice eCW1 ([facility]) OneTouch Verio - OneTouch Verio - 09/18/2019 12:00:00 AM EDT active OneTouch Verio - eCW1 ([facility]) OneTouch Verio w/Device OneTouch Verio w/Device 09/18/2019 12:00:00 A M EDT active OneTouch Verio w/Dev ice eCW1 ([facility]) OneTouch Verio w/Device OneTouch Verio w/Device 09/18/2019 12:00:00 A M EDT active OneTouch Verio w/Dev ice eCW1 ([facility]) OneTouch Verio w/Device OneTouch Verio w/Device 09/18/2019 12:00:00 A M EDT active OneTouch Verio w/Dev ice eCW1 ([facility]) OneTouch Verio - OneTouch Verio - 09/18/2019 12:00:00 AM EDT active OneTouch Verio - eCW1 ([facility]) OneTouch Verio w/Device OneTouch Verio w/Device 09/18/2019 12:00:00 A M EDT active OneTouch Verio w/Dev ice eCW1 ([facility]) OneTouch Verio - OneTouch Verio - 09/18/2019 12:00:00 AM EDT active OneTouch Verio - eCW1 ([facility]) OneTouch Verio - OneTouch Verio - 09/18/2019 12:00:00 AM EDT active OneTouch Verio - eCW1 ([facility]) OneTouch Verio w/Device OneTouch Verio w/Device 09/18/2019 12:00:00 A M EDT active OneTouch Verio w/Dev ice eCW1 ([facility]) OneTouch Verio - OneTouch Verio - 09/18/2019 12:00:00 AM EDT active OneTouch Verio - eCW1 ([facility]) OneTouch Verio - OneTouch Verio - 09/18/2019 12:00:00 AM EDT active OneTouch Verio - eCW1 ([facility]) OneTouch Verio - OneTouch Verio - 09/18/2019 12:00:00 AM EDT active OneTouch Verio - eCW1 ([facility]) 200 ACTUAT Levalbuterol 0.045 MG/ACTUAT Metered Dose I nhaler Levalbuterol Tartrate 09/15/2019 12:00:00 AM EDT RESPIRATORY active MEDENT ([facility], ) 0.625 mg/gram 08/28/2019 12:00:00 [...] VAGINALLY SOLD: 09/04/2019 [facility] Estrogens, Conjugated (CUSTODIAL) 0.625 MG/ML Vaginal Cream [Premarin] Premarin 0.625 MG/GM Premarin 0.625 MG/GM 08/27/2019 12:00:00 AM EDT active Premarin 0.625 MG/GM eCW1 ([facility]) Estrogens, Conjugated (CUSTODIAL) 0.625 MG/ML Vaginal Cream [Premarin] Premarin 0.625 MG/GM Premarin 0.625 MG/GM 08/27/2019 12:00:00 AM EDT suspended Premarin 0.625 MG/GM eCW1 ([facility]) Estrogens, Conjugated (CUSTODIAL) 0.625 MG/ML Vaginal Cream [Premarin] Premarin 0.625 MG/GM Premarin 0.625 MG/GM 08/27/2019 12:00:00 AM EDT suspended Premarin 0.625 MG/GM eCW1 ([facility]) Estrogens, Conjugated (CUSTODIAL) 0.625 MG/ML Vaginal Cream [Premarin] Premarin 0.625 MG/GM Premarin 0.625 MG/GM 08/27/2019 12:00:00 AM EDT suspended Premarin 0.625 MG/GM eCW1 ([facility]) Estrogens, Conjugated (CUSTODIAL) 0.625 MG/ML Vaginal Cream [Premarin] Premarin 0.625 MG/GM Premarin 0.625 MG/GM 08/27/2019 12:00:00 AM EDT active Premarin 0.625 MG/GM eCW1 ([facility]) Estrogens, Conjugated (CUSTODIAL) 0.625 MG/ML Vaginal Cream [Premarin] Premarin 0.625 MG/GM Premarin 0.625 MG/GM 08/27/2019 12:00:00 AM EDT active Premarin 0.625 MG/GM eCW1 ([facility]) Estrogens, Conjugated (CUSTODIAL) 0.625 MG/ML Vaginal Cream [Premarin] Premarin 0.625 MG/GM Premarin 0.625 MG/GM 08/27/2019 12:00:00 AM EDT active Premarin 0.625 MG/GM eCW1 ([facility]) Estrogens, Conjugated (CUSTODIAL) 0.625 MG/ML Vaginal Cream [Premarin] Premarin 0.625 MG/GM Premarin 0.625 MG/GM 08/27/2019 12:00:00 AM EDT suspended Premarin 0.625 MG/GM eCW1 ([facility]) Estrogens, Conjugated (CUSTODIAL) 0.625 MG/ML Vaginal Cream [Premarin] Premarin 0.625 MG/GM Premarin 0.625 MG/GM 08/27/2019 12:00:00 AM EDT suspended Premarin 0.625 MG/GM eCW1 ([facility]) Estrogens, Conjugated (CUSTODIAL) 0.625 MG/ML Vaginal Cream [Premarin] Premarin 0.625 MG/GM Premarin 0.625 MG/GM 08/27/2019 12:00:00 AM EDT active Premarin 0.625 MG/GM eCW1 ([facility]) Estrogens, Conjugated (CUSTODIAL) 0.625 MG/ML Vaginal Cream [Premarin] Premarin 0.625 MG/GM Premarin 0.625 MG/GM 08/27/2019 12:00:00 AM EDT active Premarin 0.625 MG/GM eCW1 ([facility]) Estrogens, Conjugated (CUSTODIAL) 0.625 MG/ML Vaginal Cream [Premarin] Premarin 0.625 MG/GM Premarin 0.625 MG/GM 08/27/2019 12:00:00 AM EDT active Premarin 0.625 MG/GM eCW1 ([facility]) Estrogens, Conjugated (CUSTODIAL) 0.625 MG/ML Vaginal Cream [Premarin] Premarin 0.625 MG/GM Premarin 0.625 MG/GM 08/27/2019 12:00:00 AM EDT suspended Premarin 0.625 MG/GM eCW1 ([facility]) Estrogens, Conjugated (CUSTODIAL) 0.625 MG/ML Vaginal Cream [Premarin] Premarin 0.625 MG/GM Premarin 0.625 MG/GM 08/27/2019 12:00:00 AM EDT suspended Premarin 0.625 MG/GM eCW1 ([facility]) 137 mcg (0.1 %) 08/08/2019 12:00:00 AM [...] MEDENT ([facility] 15 mg 07/29/2019 12:00:00 AM EDT [...] Kit/Tubing/Mouthpiece 07/23/2019 12:00:00 AM EDT active MEDENT ([facility], ) . UNIT 07/23/2019 12:00:00 AM EDT Misc 2 DI RECTED DIRECTED SOLD: 07/24/2019 [facility] Albuterol 0.83 MG/ML Inhalant Solution Albuterol Sulfate 0 07/23/2019 12:00:00 AM EDT active MEDENT ([facility]) 2.5 mg /3 mL (0.083 %) 07/23/2019 [...] suspended Ketor olac Tromethamine 0.4 % eCW1 ([facility]) Ketorolac Tromethamine 4 MG/ML Ophthalmic Solution Ket orolac Tromethamine 0.4 % Ketorolac Tromethamine 0.4 % 07/18/2019 12:00:00 AM EDT 1.0 {drop_into_affected_eye} suspended Ketor olac Tromethamine 0.4 % eCW1 ([facility]) Ketorolac Tromethamine 4 MG/ML Ophthalmic Solution Ket orolac Tromethamine 0.4 % Ketorolac Tromethamine 0.4 % 07/18/2019 12:00:00 AM EDT 1.0 {drop_into_affected_eye} suspended Ketor olac Tromethamine 0.4 % eCW1 ([facility]) Ketorolac Tromethamine 4 MG/ML Ophthalmic Solution Ket orolac Tromethamine 0.4 % Ketorolac Tromethamine 0.4 % 07/18/2019 12:00:00 AM EDT active 1 drop into affected eye eCW1 ([facility]) 0.4 % 07/18/2019 12:00:00 AM EDT drops [...] Anusol-HC 05/29/2019 12:00:00 AM EST active MEDENT ([facility]) 50 mg 05/01/2019 12:00:00 AM EST tablet 7 TAKE ONE TABLET BY MOUTH AT BEDTIME FOR COUGH MAXIMUM DAILY DOSE = 1 TABLET TAKE ONE TABLET BY MOUTH AT BEDTIME FOR COUGH MAXIMUM DAILY DOSE = 1 TABLET SOLD: 05/01/2019 [facility] tramadol hydrochloride 50 MG Oral Tablet Tramadol HCL 05/01/2019 12:00:00 AM EST ORAL completed MEDENT ([facility], ) Ciprofloxacin 500 MG Oral Tablet [Cipro] Cipro 05/01/2019 12:00: 00 AM EST ORAL completed MEDENT ([facility], ) tramadol hydrochloride 50 MG Oral Tablet Tramadol HCL 04/30/2019 12:00:00 AM EST ORAL completed MEDENT ([facility], ) benzonatate 200 MG Oral Capsule Benzonatate 200 MG Benzonata te 200 MG 04/30/2019 12:00:00 AM EST 1.0 {capsule} active Benzonatate 200 MG eCW1 ([facility]) Metformin hydrochloride 500 MG Oral Tablet Metformin H Cl 500 MG Metformin HCl 500 MG 04/30/2019 12:00:00 AM EST active Metformin HCl 500 MG eCW1 ([facility]) Metformin hydrochloride 500 MG Oral Tablet Metformin H Cl 500 MG Metformin HCl 500 MG 04/30/2019 12:00:00 AM EST active Metformin HCl 500 MG eCW1 ([facility]) benzonatate 200 MG Oral Capsule Benzonatate 200 MG Benzonata te 200 MG 04/30/2019 12:00:00 AM EST 1.0 {capsule} active Benzonatate 200 MG eCW1 ([facility]) benzonatate 200 MG Oral Capsule Benzonatate 200 MG Benzonata te 200 MG 04/30/2019 12:00:00 AM EST 1.0 {capsule} active Benzonatate 200 MG eCW1 ([facility]) Metformin hydrochloride 500 MG Oral Tablet Metformin H Cl 500 MG Metformin HCl 500 MG 04/30/2019 12:00:00 AM EST active Metformin HCl 500 MG eCW1 ([facility]) Metformin hydrochloride 500 MG Oral Tablet Metformin H Cl 500 MG Metformin HCl 500 MG 04/30/2019 12:00:00 AM EST active 2 tabs with meals, bid eCW1 ([facility]) Clarithromycin 500 MG Oral Tablet [Biaxin] Biaxin 04/30/2019 12:00:00 AM EST ORAL completed MEDENT ([facility], ) benzonatate 200 MG Oral Capsule Benzonatate 200 MG Benzonata te 200 MG 04/30/2019 12:00:00 AM EST active 1 capsu le eCW1 ([facility]) Metformin hydrochloride 500 MG Oral Tablet Metformin H Cl 500 MG Metformin HCl 500 MG 04/30/2019 12:00:00 AM EST active Metformin HCl 500 MG eCW1 ([facility]) Metformin hydrochloride 500 MG Oral Tablet Metformin H Cl 500 MG Metformin HCl 500 MG 04/30/2019 12:00:00 AM EST active Metformin HCl 500 MG eCW1 ([facility]) Metformin hydrochloride 500 MG Oral Tablet Metformin H Cl 500 MG Metformin HCl 500 MG 04/30/2019 12:00:00 AM EST active Metformin HCl 500 MG eCW1 ([facility]) Metformin hydrochloride 500 MG Oral Tablet Metformin H Cl 500 MG Metformin HCl 500 MG 04/30/2019 12:00:00 AM EST active 1tab AM 2 tabs PM eCW1 ([facility]) benzonatate 200 MG Oral Capsule Benzonatate 200 MG Benzonata te 200 MG 04/30/2019 12:00:00 AM EST active 1 capsu le eCW1 ([facility]) benzonatate 200 MG Oral Capsule Benzonatate 200 MG Benzonata te 200 MG 04/30/2019 12:00:00 AM EST 1.0 {capsule} active Benzonatate 200 MG eCW1 ([facility]) Metformin hydrochloride 500 MG Oral Tablet Metformin H Cl 500 MG Metformin HCl 500 MG 04/30/2019 12:00:00 AM EST active 1tab AM 2 tabs PM eCW1 ([facility]) Metformin hydrochloride 500 MG Oral Tablet Metformin H Cl 500 MG Metformin HCl 500 MG 04/30/2019 12:00:00 AM EST active Metformin HCl 500 MG eCW1 ([facility]) Metformin hydrochloride 500 MG Oral Tablet Metformin H Cl 500 MG Metformin HCl 500 MG 04/30/2019 12:00:00 AM EST active 2 tablet with a meal eCW1 ([facility]) benzonatate 200 MG Oral Capsule Benzonatate 200 MG Benzonata te 200 MG 04/30/2019 12:00:00 AM EST active 1 capsu le eCW1 ([facility]) Metformin hydrochloride 500 MG Oral Tablet Metformin H Cl 500 MG Metformin HCl 500 MG 04/30/2019 12:00:00 AM EST active 2 tablet with a meal eCW1 ([facility]) Metformin hydrochloride 500 MG Oral Tablet Metformin H Cl 500 MG Metformin HCl 500 MG 04/30/2019 12:00:00 AM EST active Metformin HCl 500 MG eCW1 ([facility]) Metformin hydrochloride 500 MG Oral Tablet Metformin H Cl 500 MG Metformin HCl 500 MG 04/30/2019 12:00:00 AM EST active Metformin HCl 500 MG eCW1 ([facility]) benzonatate 200 MG Oral Capsule Benzonatate 200 MG Benzonata te 200 MG 04/30/2019 12:00:00 AM EST 1.0 {capsule} active Benzonatate 200 MG eCW1 ([facility]) Metformin hydrochloride 500 MG Oral Tablet Metformin H Cl 500 MG Metformin HCl 500 MG 04/30/2019 12:00:00 AM EST active Metformin HCl 500 MG eCW1 ([facility]) Metformin hydrochloride 500 MG Oral Tablet Metformin H Cl 500 MG Metformin HCl 500 MG 04/30/2019 12:00:00 AM EST active Metformin HCl 500 MG eCW1 ([facility] [facility]) Metformin hydrochloride 500 MG Oral Tablet Metformin H Cl 500 MG Metformin HCl 500 MG 04/30/2019 12:00:00 AM EST active Metformin HCl 500 MG eCW1 ([facility]) benzonatate 200 MG Oral Capsule BENZONATATE 04/30/2019 12:00:00 AM EST capsule 90 TAKE ONE CAPSULE BY MOUTH THREE TIMES A DAY NEEDED TAKE ONE CAPSULE BY MOUTH THREE TIMES A DAY NEEDED SOLD: 05/01/2019 [facility] Metformin hydrochloride 500 MG Oral Tablet Metformin H Cl 500 MG Metformin HCl 500 MG 04/30/2019 12:00:00 AM EST active Metformin HCl 500 MG eCW1 ([facility]) 500 mg 04/30/2019 12:00:00 AM EST tablet 120 TAKE TWO TABLETS BY MOUTH TWICE A DAY WITH A MEAL, TITRATING DIRECTED TAKE TWO TABLETS BY MOUTH TWICE A DAY WITH A MEAL, TITRATING DIRECTED SOLD: 06/20/2019 [facility] benzonatate 200 MG Oral Capsule Benzonatate 200 MG Benzonata te 200 MG 04/30/2019 12:00:00 AM EST 1.0 {capsule} active Benzonatate 200 MG eCW1 ([facility]) 200 mg 04/30/2019 12:00:00 AM EST capsule 90 TAKE ONE CAPSULE BY MOUTH THREE TIMES A DAY NEEDED TAKE ONE CAPSULE BY MOUTH THREE TIMES A DAY NEEDED SOLD: 12/26/2019 [facility] Metformin hydrochloride 500 MG Oral Tablet Metformin H Cl 500 MG Metformin HCl 500 MG 04/30/2019 12:00:00 AM EST active Metformin HCl 500 MG eCW1 ([facility]) 500 mg 04/30/2019 12:00:00 AM EST tablet [...] 04/17/2019 12:00:00 AM EST ORAL active [facility] 500 mg 04/17/2019 [...] AM EST active 2 tablet s eCW1 ([facility]) benzonatate 200 MG Oral Capsule Benzonatate 200 MG Benzonata te 200 MG 04/04/2019 12:00:00 AM EST active 1 capsu le as needed for cough eCW1 ([facility]) benzonatate 200 MG Oral Capsule BENZONATATE 04/04/2019 [...] , then 1 tablet x4 days eCW1 ([facility]) PredniSONE 10 MG PredniSONE 10 MG 03/20/2019 12:00:00 AM EST active 4 tablets daily x 7 days, then 3 daily x 3 days, then 2 daily x 3 days, then 1 daily x 3 days eCW1 ([facility]) PredniSONE 10 MG PredniSONE 10 MG 03/20/2019 12:00:00 AM EST active 4 tablets daily x 7 days, then 3 daily x 3 days, then 2 daily x 3 days, then 1 daily x 3 days eCW1 ([facility]) 10 mg 03/20/2019 12:00:00 AM EST tablet [...] 12:00:00 AM EST active 1 tablet eCW1 ([facility]) Levofloxacin 750 MG Oral Tablet [Levaquin] Levaquin 750 MG L evaquin 750 MG 03/20/2019 12:00:00 AM EST active 1 tablet eCW1 ([facility]) 750 mg 03/20/2019 12:00:00 AM EST tablet [...] 12:00:00 AM E DT ORAL completed MEDENT ([facility] Insurance Providers Payer name Policy type / Coverage type Policy ID Covered democrat ID Covered democrat's relationship to dejesus Policy Dejesus Plan Information MEDICARE [id number] SP [id number] R [facility] [id number] SP [id number] MEDICARE [id number] SP [id number] A UMR O [id number] S [id number] UMR [id number] S [id number] [facility] [id number] S [id number] [employer] [place] Other 0 Self 0 [employer] [place] Other 0 Self 0 UMR [facility] [id number] ANSI-Commercial [id number] [facility] Commercial [id number] Self [id number] Umr Commercial [id number] Self [id number] [facility] Part B [id number] Self [id number] ANSI-Commercial [id number] ANSI-Commercial [id number] ANSI-Commercial [id number] ANSI-Commercial [id number] ANSI-Commercial [id number] ANSI-Commercial [id number] [employer] [place] Other 0 Self 0 [employer] [place] Other 0 Self 0 ANSI-Commercial [id number] ANSI-Commercial [id number]-[id number] ANSI-Commercial [id number]-506y-[id number] ANSI-Commercial [id number]-[id number]-[id number]-[id number] ANSI-Commercial [id number]-[id number] [facility] (O) [id number] Self [id number] ANSI-Commercial [id number] ANSI-Commercial [id number]-[id number] ANSI-Commercial [id number]-[id number]-c4h0-7zki-[id number] ANSI-Commercial nf282kz3-5ahb-872b-y1za-j19c4jix6lid [id number]-289d-i2ke-l04a8pwx7fkm ANSI-Commercial [id number]-t4pk-[id number] ANSI-Commercial [id number] [facility] [id number] ANSI-Commercial [id number]-[id number] ANSI-Commercial [id number]-[id number] [id number]-z4m6-13g47esp1c7i ANSI-Commercial [id number]-53z5-dy0c-2631v1e4m9f2 j54j4y33-807a-67w3-hz6t-5003y4g6n4g0 ANSI-Commercial [id number] [id number]-754h-[id number] ANSI-Commercial [id number]-41u3-0dz1-[id number] [id number]-99j7-2hq1-l488-8hm86o0b7v32 ANSI-Commercial [id number]-67w4-414z08or77u9 4786jjk3-1u67-644t-82g7-201t81lb23g4 ANSI-Commercial [id number] ANSI-Commercial [id number]-818f-[id number] ANSI-Commercial [id number]-[id number]-[id number] ANSI-Commercial [id number]-[id number]-3756-6gx7-8i13-w6opqyz13020 ANSI-Commercial [id number]-qo3m-[id number]-[id number]-no3v-[id number]-[id number] ANSI-Commercial [id number]-q5fh-345q-yu3u-[id number] [id number]-g4mz-305d-ro0d-[id number] [employer] [place] Other 0 Self 0 [employer] [place] Other 0 Self 0 [employer] [place] Other 0 Self 0 ANSI-Commercial [id number] ANSI-Commercial [id number]-[id number]-[id number] ANSI-Commercial [id number]-v70l-[id number]-c59u-[id number] ANSI-Commercial [id number]-46xr-[id number] 6m89qt0f-8f54-975t-72bh-[id number] ANSI-Commercial 7kuaqh4s-[id number]-g75u-13qb45kon03i 6oprlg3a-5217-5589-n23x-80qd02pxy23p ANSI-Commercial [id number]-[id number]-85eo-[id number] ANSI-Commercial [id number]-3055-[id number] ANSI-Commercial [id number]-l6v4-9yrh-f4fq-[id number]-w0v0-9szi-x3pt-[id number] ANSI-Commercial [id number] R [facility] [id number] SP [id number] Umr Commercial [id number] Self [id number] Umr Commercial [id number] Self [id number] ANSI-Commercial [id number]-[id number] ANSI-Commercial [id number]-[id number]-[id number] R [id number] S [id number] ANSI-Commercial [id number]-88so-[id number] ANSI-Commercial [id number] ANSI-Commercial [id number]-[id number] ANSI-Commercial [id number] R [id number] S [id number] UMR .[id number] 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 .[id number] [employer] [id number] S [id number] Umr Commercial [id number] Self [id number] [employer] [id number] Self [id number] [employer] [id number] SP [id number] [employer] PPO O [id number] S [id number] [employer] Medig[employer] Part B Self [employer] Commercial Self [employer] Commercial Self [employer] PPO P [id number] S [id number] Problems, Conditions, and Diagnoses Code Display Name Description Problem Type Effective Dates Data Source(s) N81.0 38903978 Urethrocele Problem 04/07/2020 12:00:[address] eCW1 ([facility]) N81.6 7469999 Rectocele Problem 04/07/2020 12:00:00 AM ES T eCW1 ([facility]) G89.29 00684480 Other chronic pain Problem 03/02/2020 12:00: 00 AM EST eCW1 ([facility]) E78.2 445971670 Mixed hyperlipidemia Problem 03/02/2020 12:0 0:00 AM EST eCW1 ([facility]) M22.40 53255851 Chondromalacia of patella, unspecified la terality Problem 10/10/2019 12:00:00 AM EDT eCW1 ([facility]) Z90.710 543883811 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 Problem 08/27/2019 12:00:00 AM EDT eCW1 ([facility]) N95.2 360388725 Vaginal atrophy Problem 08/27/2019 12:00:00 AM EDT eCW1 ([facility]) K59.00 32986875 Constipation in female Problem 08/27/2019 12 :00:00 AM EDT eCW1 ([facility]) N81.11 063873261 Midline cystocele Problem 08/27/2019 12:00:0 0 AM EDT eCW1 ([facility]) N94.10 20839998 Dyspareunia in female Problem 08/27/2019 12: 00:00 AM EDT eCW1 ([facility]) N39.3 58345171 Stress incontinence in female Problem 2019 12:00:00 AM EDT eCW1 ([facility]) Encounter for allergy testing Encounter for allergy te sting Problem 08/07/2019 12:00:00 AM EDT MEDENT ([facility] ) [id number] Uncomplicated moderate persistent asthma Uncomplicated moderate persistent asthma Problem 07/23/2019 12:00:00 AM EDT MEDENT (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, without long-term current use of insulin Problem 04/30/2019 12:00:00 AM EST eCW1 ([facility]) I10 Benign essential hypertension Essential hypertension P roblem 04/30/2019 12:00:00 AM EST eCW1 ([facility]) I10 Benign essential hypertension Essential hypertension P roblem 04/30/2019 12:00:00 AM EST eCW1 ([facility]) E09.9 3064929 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, without long-term current use of insulin Problem 04/30/2019 12:00:00 AM EST eCW1 ([facility]) 56926410 Lymphadenopathy Lymphadenopathy Problem 04/08/2019 12:0 0:00 AM EST MEDENT ([facility] Z79.899 Other exterminator (current) drug therapy O THER USP (CURRENT) DRUG THERAPY Diagnosis 01/30/2020 03:46:00 PM EST [facility] Z79.891 shelter (current) use of opiate analge 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 ANALGESIC Diagnosis 01/30/2020 03:46:00 PM EST [facility] Z79.84 USP (CURRENT) USE OF ORAL HYPOGLYC EMIC DRUGS USP (CURRENT) USE OF ORAL HYPOGLYCEMIC DRUGS Diagnosis 01/30/2020 03:46:00 PM [facility] Z79.82 shelter (current) use of aspirin USP (CU RRENT) USE OF ASPIRIN Diagnosis 01/30/2020 03:46:00 PM [facility] J44.9 Chronic obstructive pulmonary disease, u nspecified CHRONIC OBSTRUCTIVE PULMONARY DISEASE, UNSPECIFIED Diagnosis 01/30/2020 03:46:00 PM [facility] M79.661 Pain in right lower leg PAIN IN RIGHT LOWER LEG Diagno sis 01/30/2020 03:46:00 PM [facility] M79.651 Pain in right thigh PAIN IN RIGHT THIGH Diagnosis 1 03/31/2019 03:46:00 PM [facility] M25.561 Pain in right knee PAIN IN RIGHT KNEE Diagnosis 08/2019 03:46:00 PM [facility] M79.89 Other specified soft tissue disorders OT HER SPECIFIED SOFT TISSUE DISORDERS Diagnosis 01/30/2020 03:46:00 PM [facility] R05 Cough COUGH Diagnosis 04/04/2019 12:16:00 PM [facility] R06.2 Wheezing WHEEZING Diagnosis 04/04/2019 11:30:00 AM [facility] Surgeries/Procedures Procedure Description Date Indications Data Source(s) ARTHROCENTESIS ASPIR&/INJECTION MAJOR JT/BURSA 021 12:00:00 AM EST MEDENT ([facility] ) ARTHROCENTESIS ASPIR&/INJECTION MAJOR JT/BURSA 020 12:00:00 AM EST MEDENT ([facility] ) ARTHRS KNE SURG W/MENISCECTOMY MED/LAT W/SHVG 01/29/20 20 12:00:00 AM EST MEDENT ([facility] ) ARTHROCENTESIS ASPIR&/INJECTION MAJOR JT/BURSA 12:00:00 AM EST MEDENT ([facility] ) ARTHROCENTESIS ASPIR&/INJECTION MAJOR JT/BURSA 12:00:00 AM EDT MEDENT ([facility] ) ARTHROCENTESIS ASPIR&/INJECTION MAJOR JT/BURSA 020 12:00:00 AM EDT MEDENT ([facility] ) MRI Lower Extremity Any Joint 10/22/2019 12:00:00 AM E DT MEDCASANDRA ([facility] ) Spirometry 10/22/2019 12:00:00 AM BRITTANYT Basil BRICEÑO ([facility], ) X-Ray Spine Lumbosacral Complete Inc Bending Views Min Of 6 10/14/2019 12:00:00 AM EDT MEDCASANDRA ([facility] ) RADIOLOGIC EXAM KNEE COMPLETE 4/MORE VIEWS 10/14/2019 12:00:00 AM EDT MEDENT ([facility] ) ARTHROCENTESIS ASPIR&/INJECTION MAJOR JT/BURSA 020 12:00:00 AM EDT MEDENT ([facility] ) PERCUTANEOUS TESTS W/ALLERGENIC EXTRACTS 08/07/2019 12 :00:00 AM EDT MEDENT ([facility]) INTRACUTANEOUS TESTS W/ALLERGENIC EXTRACTS 08/07/2019 12:00:00 AM EDT MEDENT ([facility]) Spirometry 07/23/2019 12:00:00 AM EDT M EDENT ([facility], ) URINE-NO MICRO 05/30/2019 12:00:00 AM EST eCW1 ([facility]) MEDICAL NUTRITION INDIV IN 05/21/2019 12:00:00 AM EST eCW1 ([facility]) Endoscopy Nasal Diagnostic 04/30/2019 12:00:00 AM EST MEDENT ([facility], ) RESPIRATORY FLOW VOLUME LOOP 04/08/2019 12:00:00 AM ES T MEDENT ([facility] Results ID Date Data Source [id number] 04/25/2020 12:00:00 AM EST [facility] Name Value Range Interpretation Code Description Data Saige rce(s) Supporting Document(s) SARS coronavirus 2 Ag Negative [facility] This lab was ordered by [facility] and reported by [facility]. ID Date Data Source URINE CULTURE 03/15/2020 12:00:00 AM EST eCW1 (Replaced by [facility]) Name Value Range Interpretation Code Description Data Saige rce(s) Supporting Document(s) URINE CULTURE eCW1 ([facility]) ID Date Data Source BEDSIDE GLUCOSE 03/02/2020 12:00:00 AM EST eCW1 (Replaced by [facility]) Name Value Range Interpretation Code Description Data Saige rce(s) Supporting Document(s) 114 BEDSIDE GLUCOSE eCW1 ([facility]) ID Date Data Source Urinalysis, no micro 03/02/2020 12:00:00 AM EST eCW1 ([facility]) Name Value Range Interpretation Code Description Data Saige rce(s) Supporting Document(s) 1.020 1.002 - 1.035 Spec gravity eCW1 ([facility]placed [facility]) 5 5.0 - 9.0 pH eCW1 ([facility]) positive Negative - Leukocyte eCW1 ([facility]) neg Negative - Nitrate eCW1 ([facility]) trace Negative - mg/dl Protein eCW1 ([facility]) neg Negative - mg/dl Glucose eCW1 ([facility]) neg Negative - mg/dl Ketones eCW1 ([facility]) normal Normal - mg/dl Urobili eCW1 ([facility]) 50 Negative - Blood eCW1 ([facility]) neg Negative - Bilirubin eCW1 ([facility]) yes Internal QC Acceptable (Y/N) e CW1 ([facility]) ID Date Data Source [id number] 01/30/2020 04:42:00 PM EST [facility] Patient: ELHAM VERAS Observation R eport - [facility]VisitID: [id number] [place] [address] [phone], FRegistration Date/Time: 01/30/2020 14:32 Weight:63.5 kg (S). [...] Name Value Range Interpretation Code Description Data [facility] rce(s) Supporting Document(s) ID Date Data Source [id number] 01/30/2020 04:00:00 PM EST [facility] [...] Name Value Range Interpretation Code Description Data [facility] rce(s) Supporting Document(s) ID Date Data Source [id number] 01/24/2020 11:00:00 AM EDT [facility] ([facility] ) Name Value Range Interpretation Code Description [facility] Document(s) Coronavirus 2019 Nasopharygeal Laboratory test result [facility] ([facility] ) This nucleic acid amplification test was developed and its performance characteristics determined by [employer]. Nucleic acid amplification tests include PCR and [...] in this assay. Performed at: - [facility] [address] [id number] Rn Midwife: Angie Torres MD, Phone: [phone] Not Detected ID Date Data Source [id number] 01/24/2020 11:00:00 AM EDT [facility] Name Value Range Interpretation Code Description Data Saige rce(s) Supporting Document(s) SARS coronavirus 2 RNA [facility] This lab was ordered by [facility] and reported by [facility]. ID Date Data Source [id number] 01/08/2020 02:21:00 PM EDT MEDENT ([facility], ) Name Value Range Interpretation Code Description Data Saige rce(s) Supporting Document(s) PDFReport Laboratory test result MEDENT ([facility], ) FVC-Pred 3.13 L MEDENT ([facility]) FVC-Pre 2.99 L MEDENT ([facility]) FVC-%Pred-Pre 95 L MEDENT ([facility]) FVC-LLN 2.49 L MEDENT ([facility]) Fev1-%Pred-Pre 103 L MEDENT ([facility]) Fev1-Pre 2.53 L MEDENT ([facility]) Fev1-Pred 2.45 L MEDENT ([facility]) Fev6-Pre 2.99 L MEDENT ([facility]) Fev1-LLN 1.91 L MEDENT ([facility]) Fev6-Pred 3.03 L MEDENT ([facility]) Fev6-LLN 2.41 L MEDENT ([facility]) Fev6-%Pred-Pre 98 L MEDENT ([facility], ) Jlt3quq-Noxq 79 % MEDENT ([facility]) Mid7lgx-CTE 69 % [facility] ([facility]) Isc8dxt-Gvas 97 % [facility] ([facility]) Mik1tep-%Pred-Pre 107 % MED[facility] ([facility]) Pir6mjl-Qpv 85 % [facility] ([facility]) Ltq6msc-Bwl 100 % [facility] ([facility]) Iru3owi-%Pred-Pre 103 % [facility] ([facility]) FEFMax-Pred 6.16 L/E/sec MED[facility] ([facility]) FEFMax-%Pred-Pre 81 L/E/sec MED[facility] ([facility]) FEFMax-LLN 4.58 L/E/sec MED[facility] ([facility]) FEFMax-Pre 5.02 L/E/sec MED[facility] ([facility]) Rna8759-%Pred-Pre 128 L/E/sec MEDENT ([facility]) Bgr1353-Plh 3.10 L/E/sec [facility] ([facility]) Pnf8347-Iabx 2.42 L/E/sec MEDENT ([facility]) Web0569-CWI 1.27 L/E/sec [facility] ([facility]) ExpTime-Pre 5.52 sec MEDENT ([facility]) Pqt0vgw8-Ygtd 82 % MED[facility] ([facility]) Rdd5muk3-%Pred-Pre 103 % MEDENT ([facility]) Nui4fko0-Baj 85 % [facility] ([facility]) Viv4usu4-MMD 73 % [facility] ([facility]) ID Date Data Source [id number] 08/21/2019 12:00:00 AM EDT [facility] Maru Quintanilla MD Patient Name: AMANDA [address] Date of : 1965 Date of Exam: [facility]/2019[facility] [address] Fax: [id number] EXAM: MRI KNEE LEFT WITHOUT [...] other findings as described above.Accredited by the [employer] in MR.Stacey Davey, RUPALI/Reagan pappas for referring ELHAM VERAS to our [...] and its perform ance characteristics determined by [facility]. It has not been cleared or approved [...] for research purposes</content>
<content>only by the assay's harbor department manager. The performance</content>
<content>characteristics of this product have not been</content>
<content>established. Results should not be used as a</c ontent>
<content>diagnostic procedure without confirmation of the</content>
<content>diagnosis by another medically established diagnostic</content>
<content>product or procedure.</content>
<content> Performed at: [id number]</content>
<content>[address], [place] [id number]</content>
<content>Rn Midwife: Vonnie Lei PhD, Phone: [phone]</content>
<content> Performed at: [facility]</content>
<content>[address] [place] [phone]</content>
<content>Rn Midwife: Flaco Waite MD, Phone: [phone]</content>
<content></content> ID Date Data Source [id number] 07/23/2019 [...] of [place]) Laboratory test finding (navigational concept) 7 mg/dL 7 -18 Normal (applies to non-numeric results) [facility] ([facility]) Laboratory test finding (navigational concept) 0.63 mg/dL 0 .55-1.30 Normal (applies to non-numeric results) [facility] Laboratory test finding (navigational concept) Laboratory test r esult Normal (applies to non-numeric results) [facility] <content>Units are mL/min/1.73 m2</content>
<content></content>
<content>Chronic Kidney Disease Staging per NKF:</content>
<content></content>
<content>Stage I & II GFR >=60 Normal to Mildly Decreased</content>
<content>Stage III GFR 30- 59 Moderately Decreased</content>
<content>Stage IV GFR 15-29 Severely Decreased</content>
<content>Stage V GFR <15 Very Little GFR Left</content>
<content>ESRD GFR <15 on LEAD MAN OVER ALL DIES IN PATTERN SHOP</content>
<content></content> Laboratory test finding (navigational concept) 138 meq/L 1 36-145 Normal (applies to non-numeric results) [facility] [place] Laboratory test finding (navigational concept) 5.0 meq/L 3 .5-5.1 Normal (applies to non-numeric results) [facility] [place] Laboratory test finding (navigational concept) 103 meq/L 9 8-107 Normal (applies to non-numeric results) [facility] [place] Laboratory test finding (navigational concept) 7 meq/L 8-16 Below low normal [facility] ([facility] [place]) Laboratory test finding (navigational concept) 9.4 mg/dL [...] of [place]) Laboratory test finding (navigational concept) 0.5 % 0 -3.0 Normal (applies to non-numeric results) [facility] [place] Laboratory test finding (navigational concept) 2.0 10 1 .5-5.0 Normal (applies to non-numeric results) [facility] [place] Laboratory test finding (navigational concept) 4.6 10 1 .5-8.5 Normal (applies to non-numeric results) [facility] [place] Laboratory test finding (navigational concept) 0.0 % 0 -0 Normal (applies to non- numeric results) [facility] [place] [facility] Laboratory test finding (navigational concept) 0.3 10 0 .0-0.5 Normal (applies to non-numeric results) [facility] [place] Laboratory test finding (navigational concept) 0.1 10 0 .0-0.2 Normal (applies to non-numeric results) [facility]) Laboratory test finding (navigational concept) 0.7 10 0 .0-0.8 Normal (applies to non-numeric results) [facility] ([facility]) ID Date Data Source [id number] 06/23/2019 03:14:00 PM EDT [facility] ([facility], ) Name Value Range Interpretation Code Description Data Saige rce(s) Supporting Document(s) FVC-Pred 3.13 L MEDENT ([facility], ) PDFReport Laboratory test result MEDENT ([facility], ) FVC-%Pred-Pre 90 L MEDENT ([facility]) FVC-Pre 2.84 L MEDENT ([facility]) FVC-LLN 2.49 L MEDENT ([facility]) Fev1-%Pred-Pre 93 L MEDENT ([facility], ) Fev1-Pre 2.30 L MEDENT ([facility], ) Fev1-Pred 2.45 L MEDENT ([facility], ) Fev6-Pred 3.03 L MEDENT ([facility]) Fev1-LLN 1.91 L MEDENT ([facility]) Fev6-%Pred-Pre 93 L MEDENT ([facility], ) Fev6-Pre 2.83 L MEDENT ([facility], ) Rka7yuo-Pvc 81 % MEDENT ([facility]) Fev6-LLN 2.41 L MEDENT ([facility]) Awn8lqv-Lodc 79 % MEDENT ([facility]) Dwm8qhp-YGC 69 % MEDENT ([facility]) Ymr2sug-Bzqo 97 % MEDENT ([facility]) Hwk7piv-%Pred-Pre 102 % MEDENT ([facility]) FEFMax-Pred 6.16 L/E/sec MEDENT ([facility]) Oxl8dpt-%Pred-Pre 102 % MEDENT ([facility]) Dxu2glv-Xph 100 % MEDENT ([facility]) FEFMax-Pre 4.55 L/E/sec MEDENT ([facility]) FEFMax-LLN 4.58 L/E/sec MEDENT ([facility]) FEFMax-%Pred-Pre 73 L/E/sec MEDENT ([facility]) [id number] 2.56 L/E/sec MEDENT ([facility]) Fzv2789-VFO 1.27 L/E/sec MEDENT ([facility]) [id number]-Atxc 2.42 L/E/sec MEDENT ([facility]) Fli2483-%Pred-Pre 105 L/E/sec MEDENT ([facility]) Nde6mel8-Iphj 82 % MEDENT ([facility]) ExpTime-Pre 6.37 sec MEDENT ([facility], ) Lyc1qqj1-KLA 73 % MEDENT ([facility]) Biw7xmz5-Swp 81 % MEDENT ([facility]) Uhv1iwi1-%Pred-Pre 99 % MEDENT ([facility]) ID Date Data Source [id number] 04/08/2019 10:53:00 AM EST MEDENT ([facility] Name Value Range Interpretation Code Description Data Saige rce(s) Supporting Document(s) Erythrocyte sedimentation rate by 2H Westergren method 8 mm/hr 0-3 0 MEDENT ([facility] C reactive protein [Mass/volume] in Serum or Plasma by High sensitivity method < 0.30 mg/dL 0.00-0.30 MEDENT ([facility] ID Date Data Source [id number] 04/08/2019 10:53:00 AM EST MEDENT ([facility] [...] 36.0-66.0 MED[facility] ([facility] [place] % 6.8 % 0.0-5.0 MEDENT ([facility] [...] 0.0-0.5 MED[facility] ([facility] [place] # 1.1 10 0.0-0.8 MED[facility] ([facility] Baso # 0.1 10 0.0-0.2 MED[facility] ([facility] ID Date Data Source [id number] 04/04/2019 12:44:00 PM EST [facility] [...] co mpleted Patient has never smoked MEDENT ([facility]) Smoking 04/07/2020 12:00:00 AM EST Former Smoker completed Former Smoker eCW1 ([facility]) Smoking 03/15/2020 12:00:00 AM EST Former Smoker completed Former Smoker eCW1 ([facility]) Smoking 03/15/2020 12:00:00 AM EST Former Smoker completed Former Smoker eCW1 ([facility]) Smoking 03/15/2020 12:00:00 AM EST Former Smoker completed Former Smoker eCW1 ([facility]) Smoking 03/15/2020 12:00:00 AM EST Former Smoker completed Former Smoker eCW1 ([facility]) Smoking 03/02/2020 12:00:00 AM EST Former Smoker completed Former Smoker eCW1 ([facility]) Smoking 03/02/2020 12:00:00 AM EST Former Smoker completed Former Smoker eCW1 ([facility]) 10/22/2019 12:00:00 AM EDT Denies Smoking completed Denie s Smoking MEDENT ([facility], ) Smoking 10/10/2019 12:00:00 AM EDT Former Smoker completed Former Smoker eCW1 ([facility]) Smoking 10/10/2019 12:00:00 AM EDT Former Smoker completed Former Smoker eCW1 ([facility]) Smoking 10/10/2019 12:00:00 AM EDT Former Smoker completed Former Smoker eCW1 ([facility]) Smoking 10/10/2019 12:00:00 AM EDT Former Smoker completed Former Smoker eCW1 ([facility]) Smoking 08/27/2019 12:00:00 AM EDT Former Smoker completed Former Smoker eCW1 ([facility]) Smoking 08/27/2019 12:00:00 AM EDT Former Smoker completed Former Smoker eCW1 ([facility]) Smoking 08/27/2019 12:00:00 AM EDT Former Smoker completed Former Smoker eCW1 ([facility]) Smoking 07/23/2019 12:00:00 AM EDT Patient is a former smoker completed Patient is a former smoker MEDENT ([facility] ) Vital Signs ID Date Data Source UNK Name Value Range Interpretation Code Description Data Source(s) Body mass index (BMI) [Ratio] 24.0 kg/m2 24.0 k g/m2 MEDENT ([facility]) Body height 64 [in_i] 64 [in_i] MEDENT ([facility], [facility]) 5'4" Body weight 140.00 [lb_av] 140.00 [lb_av] MEDEN T ([facility], [facility]) Body temperature 98.7 [degF] 98.7 [degF] MEDENT ([facility], [facility]) Oxygen saturation in Arterial blood by Pulse oximetry 97 % 97 % MEDENT ([facility], [facility]) Respiratory rate 14 /min 14 /min MEDENT ( [facility], [facility]) Heart rate 102 /min 102 /min MEDENT ([facility], [facility]) Diastolic blood pressure 87 mm[Hg] 87 mm[Hg] MEDENT ([facility], [facility]) Systolic blood pressure 140 mm[Hg] 140 mm[Hg] M EDENT ([facility], [facility]) Diastolic blood pressure 77 mm[Hg] 77 mm[Hg] eCW1 ([facility]) Systolic blood pressure 124 mm[Hg] 124 mm[Hg] e CW1 ([facility]) Body mass index (BMI) [Ratio] 25.51 kg/m2 25.51 kg/m2 eCW1 ([facility]) Body height 63 [in_i] 63 [in_i] eCW1 ([facility]placed [facility]) Body weight 65.32 kg 65.32 kg eCW1 ([facility]placed by [facility]) Body weight 144 [lb_av] 144 [lb_av] eCW1 ([facility]) Body temperature 96.9 [degF] 96.9 [degF] MEDENT ([facility]) Diastolic blood pressure 79 mm[Hg] 79 mm[Hg] eCW1 ([facility]) Systolic blood pressure 137 mm[Hg] 137 mm[Hg] e CW1 ([facility]) Body temperature 98.4 [degF] 98.4 [degF] eCW1 ( [facility]) Respiratory rate 18 /min 18 /min eCW1 ([facility]) Heart rate 94 /min 94 /min eCW1 ([facility]) Body mass index (BMI) [Ratio] 24.97 kg/m2 24.97 kg/m2 eCW1 ([facility]) Body height 63 [in_i] 63 [in_i] eCW1 ([facility]placed [facility]) Body weight 141 [lb_av] 141 [lb_av] eCW1 ([facility]) Diastolic blood pressure 90 mm[Hg] 90 mm[Hg] eCW1 ([facility]) Systolic blood pressure 170 mm[Hg] 170 mm[Hg] e CW1 ([facility]) Body temperature 98 [degF] 98 [degF] eCW1 ([facility]) Respiratory rate 18 /min 18 /min eCW1 ([facility]) Heart rate 107 /min 107 /min eCW1 ([facility]) Body mass index (BMI) [Ratio] 25.51 kg/m2 25.51 kg/m2 W1 ([facility]) Body height 63 [in_i] 63 [in_i] eCW1 ([facility]placed [facility]) Body weight 144 [lb_av] 144 [lb_av] eCW1 ([facility]) Body weight 65.772 kg 65.772 kg MEDENT ([facility], ) [place] body weight 105 [lb_av] 105 [lb_av] MEDEN T ([facility], ) Body mass index (BMI) [Ratio] 27.0 kg/m2 27.0 k g/m2 MEDENT ([facility], ) Body weight 145.00 [lb_av] 145.00 [lb_av] MEDEN T ([facility], ) Body height 61.5 [in_i] 61.5 [in_i] MEDENT ([facility], ) 5'1.50" Body temperature 97.0 [degF] 97.0 [degF] [facility] ([facility], ) Oxygen saturation in Arterial blood by Pulse oximetry 98 % 98 % [facility] ([facility]) Heart rate 107 /min 107 /min [facility] ([facility]) Diastolic blood pressure 80 mm[Hg] 80 mm[Hg] [facility] ([facility]) Systolic blood pressure 130 mm[Hg] 130 mm[Hg] [facility] ([facility]) Body mass index (BMI) [Ratio] 24.0 kg/m2 24.0 k g/m2 MEDENT ([facility]) Body weight 140.00 [lb_av] 140.00 [lb_av] MEDEN T ([facility]) Body height 64 [in_i] 64 [in_i] [facility] ([facility]) 5'4" Body temperature 96.0 [degF] 96.0 [degF] [facility] Body mass index (BMI) [Ratio] 24.9 kg/m2 24.9 k g/m2 [facility] ([facility], [facility]) Body height 64 [in_i] 64 [in_i] [facility] ([facility], [facility]) 5'4" Body weight 145.00 [lb_av] 145.00 [lb_av] MEDEN T ([facility], [facility]) Body temperature 98.9 [degF] 98.9 [degF] [facility] ([facility], [facility]) Oxygen saturation in Arterial blood by Pulse oximetry 100 % 100 % [facility] ([facility], [facility]) Respiratory rate 18 /min 18 /min [facility] ( [facility], [facility]) Heart rate 92 /min 92 /min [facility] ([facility], [facility]) Diastolic blood pressure 78 mm[Hg] 78 mm[Hg] [facility] ([facility], [facility]) Systolic blood pressure 128 mm[Hg] 128 mm[Hg] [facility] ([facility], [facility]) Body weight 65.772 kg 65.772 kg [facility] ([facility], ) [place] body weight 105 [lb_av] 105 [lb_av] MEDEN T ([facility]) Body mass index (BMI) [Ratio] 27.0 kg/m2 27.0 k g/m2 [facility] ([facility]) Body weight 145.00 [lb_av] 145.00 [lb_av] MEDEN T ([facility]) Body height 61.5 [in_i] 61.5 [in_i] [facility] ([facility]) 5'1.50" Body temperature 97.1 [degF] 97.1 [degF] [facility] ([facility]) Oxygen saturation in Arterial blood by Pulse oximetry 98 % 98 % [facility] ([facility]) Heart rate 80 /min 80 /min [facility] ([facility]) Diastolic blood pressure 80 mm[Hg] 80 mm[Hg] [facility] ([facility]) Systolic blood pressure 130 mm[Hg] 130 mm[Hg] M EDENT ([facility]) Body mass index (BMI) [Ratio] 24.5 kg/m2 24.5 k g/m2 [facility]) Body weight 143.00 [lb_av] 143.00 [lb_av] MEDEN T ([facility]) Body height 64 [in_i] 64 [in_i] MEDENT ([facility]) 5'4" Body temperature 97.0 [degF] 97.0 [degF] [facility]) Diastolic blood pressure 79 mm[Hg] 79 mm[Hg] eCW1 ([facility]) Systolic blood pressure 126 mm[Hg] 126 mm[Hg] e CW1 ([facility]) Body temperature 98 [degF] 98 [degF] eCW1 ([facility]) Respiratory rate 18 /min 18 /min eCW1 ([facility]) Heart rate 78 /min 78 /min eCW1 ([facility]) Body mass index (BMI) [Ratio] 26.04 kg/m2 26.04 kg/m2 eCW1 ([facility]) Body height 63 [in_i] 63 [in_i] eCW1 ([facility]placed by [facility]) Body weight 147 [lb_av] 147 [lb_av] eCW1 ([facility]) Diastolic blood pressure 78 mm[Hg] 78 mm[Hg] eCW1 ([facility]) Systolic blood pressure 124 mm[Hg] 124 mm[Hg] e CW1 ([facility]) Body mass index (BMI) [Ratio] 26.71 kg/m2 26.71 kg/m2 eCW1 ([facility]) Body height 63 [in_i] 63 [in_i] eCW1 ([facility]placed by [facility]) Body weight 150.8 [lb_av] 150.8 [lb_av] eCW1 ([facility]) Body height 61 [in_i] 61 [in_i] MEDENT [...] MEDENT ([facility]) 5'0" Body weight 153.50 [lb_av] 153.50 [lb_av] MEDEN T ([facility]) Oxygen saturation in Arterial blood by Pulse oximetry 98 % 98 % [facility] ([facility], ) Heart rate 94 /min 94 /min [facility] ([facility], ) Diastolic blood pressure 84 mm[Hg] 84 mm[Hg] [facility] ([facility]) Systolic blood pressure 118 mm[Hg] 118 mm[Hg] [facility], ) Body weight 69.854 kg 69.854 kg [facility] ([facility]) Body mass index (BMI) [Ratio] 28.6 kg/m2 28.6 k g/m2 [facility] ([facility], ) Body weight 154.00 [lb_av] 154.00 [lb_av] MEDEN T ([facility], ) Body height 61.5 [in_i] 61.5 [in_i] [facility] ([facility], ) 5'1.50" Body temperature 97.2 [degF] 97.2 [degF] [facility] ([facility], ) Diastolic blood pressure 84 mm[Hg] 84 mm[Hg] eCW1 ([facility]) Systolic blood pressure 138 mm[Hg] 138 mm[Hg] e CW1 ([facility]) Body temperature 98.4 [degF] 98.4 [degF] eCW1 ( [facility]) Respiratory rate 18 /min 18 /min eCW1 ([facility]) Heart rate 95 /min 95 /min eCW1 ([facility]) Body mass index (BMI) [Ratio] 26.57 kg/m2 26.57 kg/m2 eCW1 ([facility]) Body height 63 [in_us] 63 [in_us] eCW1 (Replaced by [facility]) Body weight Measured 150 [lb_av] 150 [lb_av] eC W1 ([facility]) Diastolic blood pressure 78 mm[Hg] 78 mm[Hg] eCW1 ([facility]) Systolic blood pressure 138 mm[Hg] 138 mm[Hg] e CW1 ([facility]) Body temperature 97.8 [degF] 97.8 [degF] eCW1 ( [facility]) Respiratory rate 19 /min 19 /min eCW1 ([facility]) Heart rate 96 /min 96 /min eCW1 ([facility]) Body mass index (BMI) [Ratio] 27.30 kg/m2 27.30 kg/m2 eCW1 ([facility]) Body height 63 [in_us] 63 [in_us] eCW1 (Replaced by [facility]) Body weight Measured 154.12 [lb_av] 154.12 [lb_ av] eCW1 ([facility]) Body weight 70.308 kg 70.308 kg MEDENT ([facility], ) Body mass index (BMI) [Ratio] 28.8 kg/m2 28.8 k g/m2 MEDENT ([facility], ) Body weight 155.00 [lb_av] 155.00 [lb_av] MEDEN T ([facility], ) Body height 61.5 [in_i] 61.5 [in_i] MEDENT ([facility], ) 5'1.50" Body weight 69.854 kg 69.854 kg MEDENT ([facility]) Body mass index (BMI) [Ratio] 26.4 kg/m2 26.4 k g/m2 MEDENT ([facility]) Heart rate 101 /min 101 /min MED[facility] ([facility]) Diastolic blood pressure 74 mm[Hg] 74 mm[Hg] MEDENT ([facility]) Systolic blood pressure 126 mm[Hg] 126 mm[Hg] M EDENT ([facility]) Body weight 154.00 [lb_av] 154.00 [lb_av] MEDEN T ([facility]) Body height 64 [in_i] 64 [in_i] [facility] ([facility] 5'4" Body mass index (BMI) [Ratio] 27.21 kg/m2 27.21 kg/m2 eCW1 ([facility]) Body height 63 [in_us] 63 [in_us] eCW1 ([facility]placed by [facility]) Body weight Measured 153.6 [lb_av] 153.6 [lb_av ] eCW1 ([facility]) Body weight 70.308 kg 70.308 kg MEDENT ([facility], ) Body mass index (BMI) [Ratio] 28.8 kg/m2 28.8 k g/m2 MEDENT ([facility]) Body weight 155.00 [lb_av] 155.00 [lb_av] MEDEN T ([facility]) Body height 61.5 [in_i] 61.5 [in_i] MEDENT ([facility]) 5'1.50" Diastolic blood pressure 80 mm[Hg] 80 mm[Hg] eCW1 ([facility]) Systolic blood pressure 140 mm[Hg] 140 mm[Hg] e CW1 ([facility]) Body temperature 98.7 [degF] 98.7 [degF] eCW1 ( [facility]) Respiratory rate 18 /min 18 /min eCW1 ([facility]) Heart rate 88 /min 88 /min eCW1 ([facility]) Body mass index (BMI) [Ratio] 28.34 kg/m2 28.34 kg/m2 W1 ([facility]) Body height 63 [in_us] 63 [in_us] eCW1 (Replaced by [facility]) Body weight Measured 160 [lb_av] 160 [lb_av] eC W1 ([facility]) Body mass index (BMI) [Ratio] 28.6 kg/m2 [...] by Oximetry 98 % 98 % eCW1 ([facility]) Respiratory rate 18 /min 18 /min eCW1 ([facility]) Heart rate 90 /min 90 /min eCW1 ([facility]) Body temperature 97.9 [degF] 97.9 [degF] eCW1 ( [facility]) Body mass index (BMI) [Ratio] 26.34 kg/m2 26.34 kg/m2 eCW1 ([facility]) Body height 64 [in_us] 64 [in_us] eCW1 ([facility]) Diastolic blood pressure 77 mm[Hg] 77 mm[Hg] eCW1 ([facility]) Systolic blood pressure 132 mm[Hg] 132 mm[Hg] e CW1 ([facility]) Body temperature 99.3 [degF] 99.3 [degF] eCW1 ( [facility]) Respiratory rate 18 /min 18 /min eCW1 ([facility]) Heart rate 123 /min 123 /min eCW1 ([facility]) Body mass index (BMI) [Ratio] 27.10 kg/m2 27.10 kg/m2 eCW1 ([facility]) Body height 63 [in_us] 63 [in_us] eCW1 (Replaced by [facility]) Body weight Measured 153 [lb_av] 153 [lb_av] eC W1 ([facility]) Diastolic blood pressure 74 mm[Hg] 74 mm[Hg] eCW1 ([facility]) Systolic blood pressure 125 mm[Hg] 125 mm[Hg] e CW1 ([facility]) Body temperature 98.7 [degF] 98.7 [degF] eCW1 ( [facility]) Respiratory rate 18 /min 18 /min eCW1 ([facility]) Heart rate 98 /min 98 /min eCW1 ([facility]) Body mass index (BMI) [Ratio] 26.92 kg/m2 26.92 kg/m2 eCW1 ([facility]) Body height 63 [in_us] 63 [in_us] eCW1 (Replaced by [facility]) Body weight Measured 152 [lb_av] 152 [lb_av] eC W1 ([facility]) Patient Treatment Plan of Care Planned Activity Planned Date Details Description Data Source (s) Fluconazole 150 MG Oral Tablet [Diflucan] 03/15/2020 12:00:00 AM ES T eCW1 ([facility]) Ciprofloxacin 500 MG Oral Tablet [Cipro] 03/15/2020 12:00:00 AM EST eCW1 ([facility]) Fluconazole 150 MG Oral Tablet [Diflucan] 03/15/2020 12:00:00 AM ES T eCW1 ([facility]) Ciprofloxacin 500 MG Oral Tablet [Cipro] 03/15/2020 12:00:00 AM EST eCW1 ([facility]) Fluconazole 150 MG Oral Tablet [Diflucan] 03/15/2020 12:00:00 AM ES T eCW1 ([facility]) Ciprofloxacin 500 MG Oral Tablet [Cipro] 03/15/2020 12:00:00 AM EST eCW1 ([facility]) Fluconazole 150 MG Oral Tablet [Diflucan] 03/15/2020 12:00:00 AM ES T eCW1 ([facility]) Ciprofloxacin 500 MG Oral Tablet [Cipro] 03/15/2020 12:00:00 AM EST eCW1 ([facility]) Ciprofloxacin 250 MG Oral Tablet 03/05/2020 12:00:00 AM EST eCW1 ([facility]) Fluconazole 150 MG Oral Tablet 03/05/2020 12:00:00 AM EST eCW1 ([facility]) Ciprofloxacin 250 MG Oral Tablet 03/05/2020 12:00:00 AM EST eCW1 ([facility]) Fluconazole 150 MG Oral Tablet 03/05/2020 12:00:00 AM EST eCW1 ([facility]) One Touch Delica 33 gauge 09/19/2019 12:00:00 AM EDT eCW1 ([facility]) One Touch Delica 33 gauge 09/19/2019 12:00:00 AM EDT eCW1 ([facility]) One Touch Delica 33 gauge 09/19/2019 12:00:00 AM EDT eCW1 ([facility]) One Touch Delica 33 gauge 09/19/2019 12:00:00 AM EDT eCW1 ([facility]) One Touch Delica 33 gauge 09/19/2019 12:00:00 AM EDT eCW1 ([facility]) One Touch Delica 33 gauge 09/19/2019 12:00:00 AM EDT eCW1 ([facility]) OneTouch Verio w/Device 09/18/2019 12:00:00 AM EDT eCW1 ([facility]) OneTouch Verio - 09/18/2019 12:00:00 AM EDT eCW1 ([facility]) OneTouch Verio w/Device 09/18/2019 12:00:00 AM EDT eCW1 ([facility]) OneTouch Verio - 09/18/2019 12:00:00 AM EDT eCW1 ([facility]) OneTouch Verio - 09/18/2019 12:00:00 AM EDT eCW1 ([facility]) OneTouch Verio w/Device 09/18/2019 12:00:00 AM EDT eCW1 ([facility]) OneTouch Verio - 09/18/2019 12:00:00 AM EDT eCW1 ([facility]) OneTouch Verio w/Device 09/18/2019 12:00:00 AM EDT eCW1 ([facility]) OneTouch Verio - 09/18/2019 12:00:00 AM EDT eCW1 ([facility]) OneTouch Verio w/Device 09/18/2019 12:00:00 AM EDT eCW1 ([facility]) OneTouch Verio w/Device 09/18/2019 12:00:00 AM EDT eCW1 ([facility]) OneTouch Verio - 09/18/2019 12:00:00 AM EDT eCW1 ([facility]) Estrogens, Conjugated (CUSTODIAL) 0.625 MG/ML Vaginal Cream [Premarin] 08/27/2019 12:00:00 AM EDT eCW1 ([facility]) Estrogens, Conjugated (CUSTODIAL) 0.625 MG/ML Vaginal Cream [Premarin] 08/27/2019 12:00:00 AM EDT eCW1 ([facility]) Estrogens, Conjugated (CUSTODIAL) 0.625 MG/ML Vaginal Cream [Premarin] 08/27/2019 12:00:00 AM EDT eCW1 ([facility]) Estrogens, Conjugated (CUSTODIAL) 0.625 MG/ML Vaginal Cream [Premarin] 08/27/2019 12:00:00 AM EDT eCW1 ([facility]) Estrogens, Conjugated (CUSTODIAL) 0.625 MG/ML Vaginal Cream [Premarin] 08/27/2019 12:00:00 AM EDT eCW1 ([facility]) Estrogens, Conjugated (CUSTODIAL) 0.625 MG/ML Vaginal Cream [Premarin] 08/27/2019 12:00:00 AM EDT eCW1 ([facility]) Estrogens, Conjugated (CUSTODIAL) 0.625 MG/ML Vaginal Cream [Premarin] 08/27/2019 12:00:00 AM EDT eCW1 ([facility]) Ketorolac Tromethamine 4 MG/ML Ophthalmic Solution 07/18/2019 12 :00:00 AM EDT eCW1 ([facility]) Metformin hydrochloride 500 MG Oral Tablet 04/30/2019 12:00:[address] eCW1 ([facility]) Metformin hydrochloride 500 MG Oral Tablet 04/30/2019 12:00:[address] eCW1 ([facility]) Metformin hydrochloride 500 MG Oral Tablet 04/30/2019 12:00:[address] eCW1 ([facility]) benzonatate 200 MG Oral Capsule 04/30/2019 12:00:00 AM EST eCW1 ([facility]) Metformin hydrochloride 500 MG Oral Tablet 04/30/2019 12:00:[address] eCW1 ([facility]) benzonatate 200 MG Oral Capsule 04/30/2019 12:00:00 AM EST eCW1 ([facility]) Metformin hydrochloride 500 MG Oral Tablet 04/30/2019 12:00:[address] eCW1 ([facility]) benzonatate 200 MG Oral Capsule 04/30/2019 12:00:00 AM EST eCW1 ([facility]) Metformin hydrochloride 500 MG Oral Tablet 04/30/2019 12:00:[address] eCW1 ([facility]) Metformin hydrochloride 500 MG Oral Tablet 04/30/2019 12:00:[address] eCW1 ([facility]) benzonatate 200 MG Oral Capsule 04/30/2019 12:00:00 AM EST eCW1 ([facility]) Metformin hydrochloride 500 MG Oral Tablet 04/30/2019 12:00:[address] eCW1 ([facility]) Metformin hydrochloride 500 MG Oral Tablet 04/30/2019 12:00:[address] eCW1 ([facility]) benzonatate 200 MG Oral Capsule 04/30/2019 12:00:00 AM EST eCW1 ([facility]) Metformin hydrochloride 500 MG Oral Tablet 04/30/2019 12:00:[address] eCW1 ([facility]) Metformin hydrochloride 500 MG Oral Tablet 04/30/2019 12:00:[address] eCW1 ([facility]) benzonatate 200 MG Oral Capsule 04/30/2019 12:00:00 AM EST eCW1 ([facility]) benzonatate 200 MG Oral Capsule 04/04/2019 12:00:00 AM EST eCW1 ([facility] [place]) Prednisone 20 MG Oral Tablet 04/04/2019 12:00:00 AM EST eCW1 ([facility] [place]) Azithromycin 250 MG Oral Tablet 03/24/2019 12:00:00 AM EST eCW1 ([facility]) PredniSONE 10 MG 03/20/2019 12:00:00 AM EST eCW1 ([facility]) Levofloxacin 750 MG Oral Tablet [Levaquin] 03/20/2019 12:00:[address] eCW1 ([facility])
[2020-05-05] MEDS ORDERED: ISOVUE-370 76% 100ML VIAL As Ordered ONE (16:33)
--- NOTE | 2020-05-05 17:02 | REP ---
INDICATION: chest pain sob cough. COMPARISON: Comparison CT study 11 April 2019.. TECHNIQUE: Contrast dose: 75 ML of Isovue [address] technique: Helical scanning is acquired and overlapping 1.5 mm and contiguous 3 mm axial images are reformatted. In addition, maximum intensity projection and multiplanar re-formation images are generated in sagittal and coronal imaging projections. FINDINGS: There is good opacification in the pulmonary arterial tree. There is no evidence of vessel cut off or filling defect to suggest pulmonary embolus. Homogeneous opacity is seen in the thoracic aorta. There is no evidence of aneurysm or dissection. Lung window settings demonstrate no evidence of infiltrate, mass or significant pulmonary nodule. No pleural or pericardial effusion is seen. No hilar or mediastinal mass or adenopathy is observed. No extra thoracic mass or adenopathy is seen. In the upper abdomen, no abnormality is noted. On bone window settings, there are degenerative spondylosis changes in the thoracic spine and there is a levoconvex upper thoracic curvature. 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 IMPRESSION: No CT evidence of pulmonary embolus. No active cardiopulmonary disease. Thoracic scoliosis and degenerative spondylosis changes. <Electronically signed by Geo Oseguera > 05/05/20 [id number]
[2020-05-05] MEDS ORDERED: METF500T13 PO (17:53)
[2020-05-05] MEDS ORDERED: FLUT22IN INH (17:53)
[2020-05-05] MEDS ORDERED: HYDR200T3 PO (17:53)
[2020-05-05] MEDS ORDERED: FLON1SPR NARES (17:53)
[2020-05-05] MEDS ORDERED: MONT10TA10 PO (17:53)
[2020-05-05] MEDS ORDERED: REST0.05 OU (17:53)
[2020-05-05] MEDS ORDERED: PROC1CRE5 PR (17:53)
[2020-05-05] MEDS ORDERED: ALB2.5NEB INH (17:53)
[2020-05-05] MEDS ORDERED: ESTR62CR PV (17:53)
[2020-05-05] MEDS ORDERED: PANT40TA29 PO (17:53)
[2020-05-05] MEDS ORDERED: LEVA45AE INH (17:53)
[2020-05-05] MEDS ORDERED: LEVALBUTEROL 1.25 MG/0.5 ML CONCENTRATE NEB INH PRN (18:45)
[2020-05-05] MEDS ORDERED: GLUCAGON INJ 1MG VIAL SC PRN (18:45)
[2020-05-05] MEDS ORDERED: GLUCOSE 4GM CHEW TABLET PO PRN (18:45)
[2020-05-05] MEDS ORDERED: DEXTROSE 50% 50 ML SYRINGE IV PRN (18:45)
[2020-05-05] MEDS ORDERED: ACETAMINOPHEN TAB 650MG DOSE (2X325MG) PO PRN (18:45)
--- OUTSIDE RECORDS SUMMARY | 2020-05-05 18:56 | CCD ---
Author Author [facility] Organization [facility] Address Unknown Phone Unavailable Care Team Providers Care Special Library Librarian Name Role Phone PETROFF, BRIGIDO PA Unavailable [...] Unavailable MORALES, JEANCARLOS DAVION RPA-C Unavailable Unavailable MORLAES, JEANCARLOS DAVION RPA-C Unavailable Unavailable MORALES, JEANCARLOS [...] Unavailable Unavailable SHAUN, LU PA Unavailable Unavailable HSAUN, LU PA Unavailable Unavailable SHAUN, LU PA [...] dillard MD Unavailable Unavailable Justyna, A Radha CLINICAL DATA MANAGEMENT MANAGER Unavailable Unavailable Justyna, A Radha CLINICAL DATA MANAGEMENT MANAGER Unavailable Unavailable Justyna, A Radha CLINICAL DATA MANAGEMENT MANAGER Unavailable Unavailable Justyna, A Radha CLINICAL DATA MANAGEMENT MANAGER Unavailable Unavailable Justyna, A Radha CLINICAL DATA MANAGEMENT MANAGER Unavailable Unavailable Justyna, A Radha CLINICAL DATA MANAGEMENT MANAGER Unavailable Unavailable Justyna, A Radha CLINICAL DATA MANAGEMENT MANAGER Unavailable Unavailable Justyna, A Radha CLINICAL DATA MANAGEMENT MANAGER Unavailable Unavailable Justyna, A Radha CLINICAL DATA MANAGEMENT MANAGER Unavailable Unavailable Justyna, A Radha CLINICAL DATA MANAGEMENT MANAGER Unavailable Unavailable Justyna, A Radha CLINICAL DATA MANAGEMENT MANAGER Unavailable Unavailable Justyna, A Radha CLINICAL DATA MANAGEMENT MANAGER Unavailable Unavailable Justyna, A Radha CLINICAL DATA MANAGEMENT MANAGER Unavailable Unavailable Justyna, A Radha CLINICAL DATA MANAGEMENT MANAGER Unavailable Unavailable Justyna, A Radha CLINICAL DATA MANAGEMENT MANAGER Unavailable Unavailable Justyna, A Radha CLINICAL DATA MANAGEMENT MANAGER Unavailable Unavailable Justyna, A Radha CLINICAL DATA MANAGEMENT MANAGER Unavailable Unavailable Justyna, A Radha CLINICAL DATA MANAGEMENT MANAGER Unavailable Unavailable Justyna, A Radha CLINICAL DATA MANAGEMENT MANAGER Unavailable Unavailable Justyna, A Radha CLINICAL DATA MANAGEMENT MANAGER Unavailable Unavailable Justyna, A Radha CLINICAL DATA MANAGEMENT MANAGER Unavailable Unavailable Justyna, A Radha CLINICAL DATA MANAGEMENT MANAGER Unavailable Unavailable Justyna, A Radha CLINICAL DATA MANAGEMENT MANAGER Unavailable Unavailable Justyna, A Radha CLINICAL DATA MANAGEMENT MANAGER Unavailable Unavailable Justyna, A Radha CLINICAL DATA MANAGEMENT MANAGER Unavailable Unavailable Justyna, A Radha CLINICAL DATA MANAGEMENT MANAGER Unavailable Unavailable Justyna, A Radha CLINICAL DATA MANAGEMENT MANAGER Unavailable Unavailable Justyna, A Radha CLINICAL DATA MANAGEMENT MANAGER Unavailable Unavailable Justyna, A Radha CLINICAL DATA MANAGEMENT MANAGER Unavailable Unavailable Justyna, A Radha CLINICAL DATA MANAGEMENT MANAGER Unavailable Unavailable Justyna, A Radha CLINICAL DATA MANAGEMENT MANAGER Unavailable Unavailable Justyna, A Radha CLINICAL DATA MANAGEMENT MANAGER Unavailable Unavailable Justyna, A Radha CLINICAL DATA MANAGEMENT MANAGER Unavailable Unavailable Justyna, A Radha CLINICAL DATA MANAGEMENT MANAGER Unavailable Unavailable Justyna, A Radha CLINICAL DATA MANAGEMENT MANAGER Unavailable Unavailable Justyna, A Radha CLINICAL DATA MANAGEMENT MANAGER Unavailable Unavailable Justyna, A Radha CLINICAL DATA MANAGEMENT MANAGER Unavailable Unavailable Justyna, A Radha CLINICAL DATA MANAGEMENT MANAGER Unavailable Unavailable Justyna, A Radha CLINICAL DATA MANAGEMENT MANAGER Unavailable Unavailable Justyna, A Radha CLINICAL DATA MANAGEMENT MANAGER Unavailable Unavailable Justyna, A Radha CLINICAL DATA MANAGEMENT MANAGER Unavailable Unavailable Justyna, A Radha CLINICAL DATA MANAGEMENT MANAGER Unavailable Unavailable Justyna, A Radha CLINICAL DATA MANAGEMENT MANAGER Unavailable Unavailable Justyna, A Radha CLINICAL DATA MANAGEMENT MANAGER Unavailable Unavailable Jennifer, [facility] Marci CLINICAL DATA MANAGEMENT MANAGER-C Unavailable Unavailabl e Jennifer, [facility] Marci CLINICAL DATA MANAGEMENT MANAGER-C Unavailable Unavailabl e Jennifer, [facility] Marci CLINICAL DATA MANAGEMENT MANAGER-C Unavailable Unavailabl e Jennifer, [facility] Marci CLINICAL DATA MANAGEMENT MANAGER-C Unavailable Unavailabl e Jennifer, [facility] Marci CLINICAL DATA MANAGEMENT MANAGER-C Unavailable Unavailabl e Jennifer, [facility] Marci CLINICAL DATA MANAGEMENT MANAGER-C Unavailable Unavailabl e Jennifer, [facility] Marci CLINICAL DATA MANAGEMENT MANAGER-C Unavailable Unavailabl e Jennifer, [facility] Marci CLINICAL DATA MANAGEMENT MANAGER-C Unavailable Unavailabl e Jennifer, [facility] Marci CLINICAL DATA MANAGEMENT MANAGER-C Unavailable Unavailabl e Jennifer, [facility] Marci CLINICAL DATA MANAGEMENT MANAGER-C Unavailable Unavailabl e Jennifer, [facility] Marci CLINICAL DATA MANAGEMENT MANAGER-C Unavailable Unavailabl e Jennifer, [facility] Marci CLINICAL DATA MANAGEMENT MANAGER-C Unavailable Unavailabl e Jennifer, Jeanne Henley Marci CLINICAL DATA MANAGEMENT MANAGER-C Unavailable Unavailabl e Jennifer, Jeanne Henley Marci CLINICAL DATA MANAGEMENT MANAGER-C Unavailable Unavailabl e Jennifer, Jeanne W Marci CLINICAL DATA MANAGEMENT MANAGER-C Unavailable Unavailabl e Jennifer, Jeanne Henley Marci CLINICAL DATA MANAGEMENT MANAGER-C Unavailable Unavailabl e Jennifer, Jeanne W Marci CLINICAL DATA MANAGEMENT MANAGER-C Unavailable Unavailabl e Jennifer, Gavininagilma W Marci CLINICAL DATA MANAGEMENT MANAGER-C Unavailable Unavailabl e Jennifer, Reginagilma W Marci CLINICAL DATA MANAGEMENT MANAGER-C Unavailable Unavailabl e Jennifer, Reginagilma W Marci CLINICAL DATA MANAGEMENT MANAGER-C Unavailable Unavailabl e Jennifer, Gavininagilma W Marci CLINICAL DATA MANAGEMENT MANAGER-C Unavailable Unavailabl e Jennifer, Jeanne W Marci CLINICAL DATA MANAGEMENT MANAGER-C Unavailable Unavailabl e Jennifer, Jeanne W Marci CLINICAL DATA MANAGEMENT MANAGER-C Unavailable Unavailabl e Jennifer, Regjulissa W Marci CLINICAL DATA MANAGEMENT MANAGER-C Unavailable Unavailabl e Jennifer, Jeanne W Marci CLINICAL DATA MANAGEMENT MANAGER-C Unavailable Unavailabl e Jennifer, Jeanne W Marci CLINICAL DATA MANAGEMENT MANAGER-C Unavailable Unavailabl e Jennifer, Jeanne W Marci CLINICAL DATA MANAGEMENT MANAGER-C Unavailable Unavailabl e Jennifer, Jeanne W Marci CLINICAL DATA MANAGEMENT MANAGER-C Unavailable Unavailabl e Jennifer, Jeanne Henley Marci CLINICAL DATA MANAGEMENT MANAGER-C Unavailable Unavailabl e Jennifer, Jeanne W Marci CLINICAL DATA MANAGEMENT MANAGER-C Unavailable Unavailabl e Jennifer, Jeanne W Marci CLINICAL DATA MANAGEMENT MANAGER-C Unavailable Unavailabl e Jennifer, Jeanne W Marci CLINICAL DATA MANAGEMENT MANAGER-C Unavailable Unavailabl e Paul, Carolynn CARBON PASTE MIXER OPERATOR Unavailable Unavailable Paul, Carolynn CARBON PASTE MIXER OPERATOR Unavailable Unavailable Paul, Carolynn CARBON PASTE MIXER OPERATOR Unavailable Unavailable Paul, Carolynn CARBON PASTE MIXER OPERATOR Unavailable Unavailable Paul, Carolynn CARBON PASTE MIXER OPERATOR Unavailable Unavailable Paul, Carolynn CARBON PASTE MIXER OPERATOR Unavailable Unavailable Paul, Carolynn CARBON PASTE MIXER OPERATOR Unavailable Unavailable Paul, Carolynn CARBON PASTE MIXER OPERATOR Unavailable Unavailable Paul, Carolynn CARBON PASTE MIXER OPERATOR Unavailable Unavailable Paul, Carolynn CARBON PASTE MIXER OPERATOR Unavailable Unavailable Paul, Carolynn CARBON PASTE MIXER OPERATOR Unavailable Unavailable MARU QUINTANILLA MD Unavailable Unavailable [...] Unavailable Unavailable MARU QUINTANILLA MD Unavailable Unavailable MRAU QUINTANILLA MD Unavailable Unavailable CHROSTOWSKILARYINA MD Unavailable [...] CHROSTOWSKI, INA MD Unavailable Unavailable Shannon, Trina CLINICAL DATA MANAGEMENT MANAGER Unavailable Unavailable Shannon, Trina CLINICAL DATA MANAGEMENT MANAGER Unavailable Unavailable Shannon, Trina CLINICAL DATA MANAGEMENT MANAGER Unavailable Unavailable Shannon, Trina CLINICAL DATA MANAGEMENT MANAGER Unavailable Unavailable Shannon, Trina CLINICAL DATA MANAGEMENT MANAGER Unavailable Unavailable Shannon, Trina CLINICAL DATA MANAGEMENT MANAGER Unavailable Unavailable Shannon, Trina CLINICAL DATA MANAGEMENT MANAGER Unavailable Unavailable Shannon, Trina CLINICAL DATA MANAGEMENT MANAGER Unavailable Unavailable Shannon, Trina CLINICAL DATA MANAGEMENT MANAGER Unavailable Unavailable Shannon, Trina CLINICAL DATA MANAGEMENT MANAGER Unavailable Unavailable Shannon, Trina CLINICAL DATA MANAGEMENT MANAGER Unavailable Unavailable Shannon, Trina CLINICAL DATA MANAGEMENT MANAGER Unavailable Unavailable Shannon, Trina CLINICAL DATA MANAGEMENT MANAGER Unavailable Unavailable Shannon, Trina CLINICAL DATA MANAGEMENT MANAGER Unavailable Unavailable Shannon, Trina CLINICAL DATA MANAGEMENT MANAGER Unavailable Unavailable Shannon, Trina CLINICAL DATA MANAGEMENT MANAGER Unavailable Unavailable Shannon, Trina CLINICAL DATA MANAGEMENT MANAGER Unavailable Unavailable Shannon, Trina CLINICAL DATA MANAGEMENT MANAGER Unavailable Unavailable Shannon, Trina CLINICAL DATA MANAGEMENT MANAGER Unavailable Unavailable Shannon, Trina CLINICAL DATA MANAGEMENT MANAGER Unavailable Unavailable Shannon, Trina CLINICAL DATA MANAGEMENT MANAGER Unavailable Unavailable Shannon, Trina CLINICAL DATA MANAGEMENT MANAGER Unavailable Unavailable Shannon, Trina CLINICAL DATA MANAGEMENT MANAGER Unavailable Unavailable Shannon, Trina CLINICAL DATA MANAGEMENT MANAGER Unavailable Unavailable Shannon, Trina CLINICAL DATA MANAGEMENT MANAGER Unavailable Unavailable Shannon, Trina CLINICAL DATA MANAGEMENT MANAGER Unavailable Unavailable Shannon, Trina CLINICAL DATA MANAGEMENT MANAGER Unavailable Unavailable Shannon, Trina CLINICAL DATA MANAGEMENT MANAGER Unavailable Unavailable Shannon, Trina CLINICAL DATA MANAGEMENT MANAGER Unavailable Unavailable Shannon, Trina CLINICAL DATA MANAGEMENT MANAGER Unavailable Unavailable Shannon, Trina CLINICAL DATA MANAGEMENT MANAGER Unavailable Unavailable Shannon, Trina CLINICAL DATA MANAGEMENT MANAGER Unavailable Unavailable Shannon, Trina CLINICAL DATA MANAGEMENT MANAGER Unavailable Unavailable Shannon, Trina CLINICAL DATA MANAGEMENT MANAGER Unavailable Unavailable Shannon, Trina CLINICAL DATA MANAGEMENT MANAGER Unavailable Unavailable Shannon, Trina CLINICAL DATA MANAGEMENT MANAGER Unavailable Unavailable Camargo, Yoseph Zaldivar MD Unavailable [...] Zen MD Unavailable Unavailable Daiana, L Delia CARBON PASTE MIXER OPERATOR Unavailable Unavailable Daiana, L Delia CARBON PASTE MIXER OPERATOR Unavailable Unavailable Daiana, L Delia CARBON PASTE MIXER OPERATOR Unavailable Unavailable Daiana, L Delia CARBON PASTE MIXER OPERATOR Unavailable Unavailable Daiana, L Delia CARBON PASTE MIXER OPERATOR Unavailable Unavailable Daiana, L Delia CARBON PASTE MIXER OPERATOR Unavailable Unavailable Daiana, L Delia CARBON PASTE MIXER OPERATOR Unavailable Unavailable Daiana, L Delia CARBON PASTE MIXER OPERATOR Unavailable Unavailable Daiana, L Delia CARBON PASTE MIXER OPERATOR Unavailable Unavailable Daiana, L Delia CARBON PASTE MIXER OPERATOR Unavailable Unavailable Daiana, L Delia CARBON PASTE MIXER OPERATOR Unavailable Unavailable Daiana, L Delia CARBON PASTE MIXER OPERATOR Unavailable Unavailable Daiana, L Delia CARBON PASTE MIXER OPERATOR Unavailable Unavailable Daiana, L Delia CARBON PASTE MIXER OPERATOR Unavailable Unavailable Daiana, L Delia CARBON PASTE MIXER OPERATOR Unavailable Unavailable Daiana, L Delia CARBON PASTE MIXER OPERATOR Unavailable Unavailable Daiana, L Delia CARBON PASTE MIXER OPERATOR Unavailable Unavailable Daiana, L Delia CARBON PASTE MIXER OPERATOR Unavailable Unavailable Daiana, L Delia CARBON PASTE MIXER OPERATOR Unavailable Unavailable Daiana, L Delia CARBON PASTE MIXER OPERATOR Unavailable Unavailable Daiana, L Delia CARBON PASTE MIXER OPERATOR Unavailable Unavailable Daiana, L Edlia CARBON PASTE MIXER OPERATOR Unavailable Unavailable Re-disclosure Warning The records that [...] is protected by Article 27-F of the [facility] Public Health law. If you continue you may have access to information: Regarding HIV / AIDS; Provided by facilities licensed or operated by the [facility] Office of Mental Health; or Provided by the [facility] Office for People With Developmental Disabilities. If such information is present, then the following [facility] mandated warning applies: This information has [...] law may result in a fine or chcf sentence or both. A general authorization for the release of medical or other information is NOT sufficient authorization for further disc losure. Allergies and Adverse Reactions Type Description Substance Reaction Status Data Source(s ) Drug allergy Penicillin (For Allergies Use Only) Drug allergy Hives Active eCW1 ([facility]) Parafon Forte DSC Parafon Forte DSC Parafon Forte DSC RASH Acti ve eCW1 ([facility]) bees bees bees Anaphylaxis Active eCW1 ([facility]) sulfa sulfa sulfa hives Active eCW1 ([facility]) pravachol pravachol Pravastatin Sodium 40 MG Oral Ta blet [Pravachol] body aches Active eCW1 ([facility]) Parafon Forte DSC Parafon Forte DSC Parafon Forte DSC RASH Acti ve eCW1 ([facility]) pravachol pravachol Pravastatin Sodium 40 MG Oral Ta blet [Pravachol] body aches Active eCW1 ([facility]) bees bees bees Anaphylaxis Active eCW1 ([facility]) sulfa sulfa sulfa hives Active eCW1 ([facility]) Parafon Forte DSC Parafon Forte DSC Parafon Forte DSC RASH Acti ve eCW1 ([facility]) bees bees bees Anaphylaxis Active eCW1 ([facility]) sulfa sulfa sulfa hives Active eCW1 ([facility]) pravachol pravachol Pravastatin Sodium 40 MG Oral Ta blet [Pravachol] body aches Active eCW1 ([facility]) Penicillin G Sodium Penicillin G Sodium Penicillin G Sodium 966383 UNT/ML Injectable Solution hives Active eCW1 ([facility]) Sulfacet-R Sulfacet-R Sulfacet-R hives Active eCW1 ([facility]) Parafon Forte DSC Parafon Forte DSC Parafon Forte DSC RASH Acti ve eCW1 ([facility]) bees bees bees Anaphylaxis Active eCW1 ([facility]) sulfa sulfa sulfa hives Active eCW1 ([facility]) pravachol pravachol Pravastatin Sodium 40 MG Oral Ta blet [Pravachol] body aches Active eCW1 ([facility]) Parafon Forte DSC Parafon Forte DSC Parafon Forte DSC RASH Acti ve eCW1 ([facility]) sulfa sulfa sulfa hives Active eCW1 ([facility]) bees bees bees Anaphylaxis Active eCW1 ([facility]) pravachol pravachol Pravastatin Sodium 40 MG Oral Ta blet [Pravachol] body aches Active eCW1 ([facility]) Family History Family Member Name Family Member Gender Family Member Status Date o f Status Description Data Source(s) Unknown Unknown Problem MEDENT ([facility], [facility]) Encounters Encounter Providers Location Date Indications Data Source(s ) Outpatient Attender: LU roy 04/25/2020 08:35:00 AM EST MEDENT ([facility], [facility]) Office Visit Attender: MARU QUINTANILLA MD Physical Therapy 01:45:00 PM EST MEDENT ([facility]) Outpatient [address] [facility] [place] [address] 04/07/2020 12:00:00 AM EST eCW1 ([facility]) Unknown [address] [place] [address] 03/16/2020 12:00:00 AM EST eCW1 ([facility]) Outpatient [address] [facility] [place] [address] 03/15/2020 12:00:00 AM EST [facility]1 ([facility] [place] [address] [place] [address] 03/15/2020 12:00:00 AM EST eCW1 ([facility]) [place] [address] [place] [address] 03/15/2020 12:00:00 AM EST eCW1 ([facility]) Unknown [address] [facility] [place] [address] 03/05/2020 12:00:00 AM EST eCW1 ([facility]) Outpatient [address] [facility] [place] [address] 03/02/2020 12:00:00 AM EST eCW1 ([facility]) Emergency Attender: BRIGIDO Brocker: Jovany Leal MD 01/30/2020 03:46:00 PM EST - 01/30/2020 03:55:00 PM [facility] Patient discharged. [place] [address] [address] 01/23/2020 12:00:00 AM EDT eCW1 ([facility]) Outpatient Attender: Delia Rea/[place]wood/Rajeev/Reindl 01/08/2020 02:30:00 PM EDT MEDENT ([facility]) Unknown [address] [facility] [place] [address] 01/07/2020 12:00:00 AM EDT eCW1 ([facility]) Unknown [address] [facility] [place] [address] 01/07/2020 12:00:00 AM EDT eCW1 ([facility]) Outpatient Attender: Carolynn flores 11/19/2019 10:15:00 AM EDT MEDENT ([facility]) Outpatient Attender: Delia Rea/[place]/Rajeev/Reindl 10/22/2019 11:00:00 AM EDT MEDENT ([facility]) Office Visit Attender: Zen Camargo MD Physical Therapy 2019 02:30:00 PM EDT MEDENT ([facility]) [place] [address] [place] [address] 10/10/2019 12:00:00 AM EDT eCW1 ([facility]) Unknown [address] [place] [address] 09/12/2019 12:00:00 AM EDT eCW1 ([facility]) Unknown [address] [place] [address] 09/11/2019 12:00:00 AM EDT eCW1 ([facility]) Office Visit Attender: MARU QUINTANILLA MD Physical Therapy 09:15:00 AM EDT MEDENT ([facility]) Office Visit Attender: MARU QUINTANILLA MD Physical Therapy 11:15:00 AM EDT MEDENT ([facility]) ( GY[place]NN) [facility] Yearly EMERGENCY MANAGER Exam [address] [place] [address] 08/27/2019 12:00:00 AM EDT eCW1 ([facility]) Outpatient Referrer: MARU QUINTANILLA MD 08/21/2019 02:44:0 [...] 08/14/2019 12:13:00 PM EDT [facility] [address] [place] [address] 08/14/2019 12:00:00 AM EDT eCW1 ([facility]) [facility] [place] [address] [place] [address] 08/13/2019 12:00:00 AM EDT eCW1 ([facility]) Outpatient Attender: INA HERRING MD Main Office 08/07/2019 01:45:00 PM EDT MEDENT ([facility]) OFFICE OUTPATIENT NEW 30 MINUTES Attender: MARU QUINTANILLA MD Ph ysical Therapy 08/07/2019 10:00:00 AM EDT MEDENT ([facility]) Outpatient Attender: Scott Chaudhari/Helena/Rajeev/Davian ndl 07/23/2019 10:30:00 AM EDT MEDENT ([facility]) Outpatient Attender: INA HERRING MD Main Office 07/23/2019 09:15:00 AM EDT MEDENT ([facility]) [address] [place] [address] 07/21/2019 12:00:00 AM EDT eCW1 ([facility]) [address] [place] [address] 07/18/2019 12:00:00 AM EDT eCW1 ([facility]) [address] [place] [address] 07/18/2019 12:00:00 AM EDT eCW1 ([facility]) [address] [place] [address] 07/18/2019 12:00:00 AM EDT eCW1 ([facility]) [address] [place] [address] 07/18/2019 12:00:00 AM EDT eCW1 ([facility]) [address] [place] [address] 07/14/2019 12:00:00 AM EDT eCW1 ([facility]) [address] [place] [address] 07/10/2019 12:00:00 AM EDT eCW1 ([facility]) [address] [place] [address] 05/30/2019 12:00:00 AM EST eCW1 ([facility]) Outpatient Attender: Vern Rea/Helena/Rajeev/Re indl 05/29/2019 12:00:00 PM EST MEDENT ([facility]) Outpatient 05/28/2019 11:56:00 AM EST [facility] [address] [place] [address] 05/21/2019 12:00:00 AM EST eCW1 ([facility]) Outpatient Attender: Vern Rea/Helena/Rajeev/Re indl 04/30/2019 12:00:00 PM EST MEDENT ([facility]) [address] [place] [address] 04/30/2019 12:00:00 AM EST eCW1 ([facility]) [address] [place] [address] 04/30/2019 12:00:00 AM EST eCW1 ([facility]) Outpatient 04/17/2019 01:48:00 PM EST [facility] Outpatient Attender: Scott Dougherty DO Main Office 04/16/2019 08:30:00 AM EST MEDENT ([facility] [address] [place] [address] 04/09/2019 12:00:00 AM EST eCW1 ([facility]) Outpatient Attender: Delia Ahmadi CARBON PASTE MIXER OPERATOR Main Office 04/08/2019 09:00:00 AM EST MEDENT ([facility] Outpatient Attender: Marci Rodriguez CLINICAL DATA MANAGEMENT MANAGER-CReferrer: Jovany Leal MD 04/04/2019 12:16:00 PM EST - 04/04/2019 12:16:00 PM EST [facility] Admission cancelled. Disregard status an d admitted date. Outpatient Attender: Marci Robinsgrace CROW 04/04/2019 11:30:0 0 AM EST [facility] 0 12:00:00 AM EST eCW1 ([facility]) [address] [place] [address] 03/24/2019 12:00:00 AM EST eCW1 ([facility]) [address] [place] [address] 03/24/2019 12:00:00 AM EST eCW1 ([facility]) [address] [place] [address] 03/21/2019 12:00:00 AM EST eCW1 ([facility]) [address], [facility] [address] 03/20/2019 12:00:00 AM EST eCW1 ([facility]) Outpatient Attender: Radha Jansen [facility] 12/11/2018 10:56 :00 AM [facility] Outpatient Attender: DAVION MCNULTYCReferrer: Won Leal MD EMERGENCY ROOM-LAB REF 10/30/2018 01:54:00 PM [facility] - 10/30/2018 01:54:00 PM [facility] Outpatient Attender: DAVION LOYOLA 10/30/2018 01:30:00 PM [facility] Outpatient Attender: Trina Shannon [facility] 06/29 02:20:00 PM [facility] - 06/29/2017 02:20:00 PM [facility] Medications Medication Brand Name Start Date Product [...] 04/25/2020 12:00:00 AM EST ORAL active MEDENT ([facility]) Prednisone 20 MG Oral Tablet Prednisone 04/25/2020 12:00:00 AM EST ORAL active MEDENT ([facility]) 20 mg 04/25/2020 12:00:00 AM EST tablet 10 TAKE TWO TABLETS BY MOUTH EVERY DAY FOR 5 DAYS TAKE TWO TABLETS BY MOUTH EVERY DAY FOR 5 DAYS SOLD: [facility] Doxycycline Monohydrate 100 MG Oral Capsule Doxycycline [place] hydrate 04/25/2020 12:00:00 AM EST ORAL active M EDENT ([facility]) 100 mg 04/25/2020 12:00:00 AM EST [...] 1.0 {tablet} active Diflucan 150 MG eCW1 ([facility]) Ciprofloxacin 500 MG Oral Tablet [Cipro] Cipro 500 MG Cipro 500 MG 03/15/2020 12:00:00 AM EST 1.0 {tablet} suspended Cipro 500 MG eCW1 ([facility]) Ciprofloxacin 500 MG Oral Tablet [Cipro] Cipro 500 MG Cipro 500 MG 03/15/2020 12:00:00 AM EST 1.0 {tablet} active Ci pro 500 MG eCW1 ([facility]) Fluconazole 150 MG Oral Tablet [Diflucan] Diflucan 150 MG Di flucan 150 MG 03/15/2020 12:00:00 AM EST 1.0 {tablet} suspended Diflucan 150 MG eCW1 ([facility]) Ciprofloxacin 500 MG Oral Tablet [Cipro] Cipro 500 MG Cipro 500 MG 03/15/2020 12:00:00 AM EST 1.0 {tablet} active Ci pro 500 MG eCW1 ([facility]) Fluconazole 150 MG Oral Tablet [Diflucan] Diflucan 150 MG Di flucan 150 MG 03/15/2020 12:00:00 AM EST 1.0 {tablet} active Diflucan 150 MG eCW1 ([facility]) Ciprofloxacin 500 MG Oral Tablet [Cipro] Cipro 500 MG Cipro 500 MG 03/15/2020 12:00:00 AM EST 1.0 {tablet} active Ci pro 500 MG eCW1 ([facility]) Ciprofloxacin 500 MG Oral Tablet [Cipro] Cipro 500 MG Cipro 500 MG 03/15/2020 12:00:00 AM EST 1.0 {tablet} active Ci pro 500 MG eCW1 ([facility]) Fluconazole 150 MG Oral Tablet [Diflucan] Diflucan 150 MG Di flucan 150 MG 03/15/2020 12:00:00 AM EST 1.0 {tablet} active Diflucan 150 MG eCW1 ([facility]) Fluconazole 150 MG Oral Tablet [Diflucan] Diflucan 150 MG Di flucan 150 MG 03/15/2020 12:00:00 AM EST 1.0 {tablet} active Diflucan 150 MG eCW1 ([facility]) 500 mg 03/15/2020 12:00:00 AM EST tablet 14 TAKE ONE TABLET BY MOUTH EVERY 12 HOURS FOR 7 DAYS TAKE ONE TABLET BY MOUTH EVERY 12 HOURS FOR 7 DAYS [facility] Fluconazole 150 MG Oral Tablet Fluconazole 150 MG 03/05/2020 12:00: 00 AM EST 1.0 {tablet} active Fluconazole 150 MG eCW1 ([facility]) Fluconazole 150 MG Oral Tablet Fluconazole 150 MG 03/05/2020 12:00: 00 AM EST 1.0 {tablet} suspended Fluconazole 150 M G eCW1 ([facility]) Ciprofloxacin 250 MG Oral Tablet Ciprofloxacin HCl 250 MG Ciprofloxacin HCl 250 MG 03/05/2020 12:00:00 AM EST 1.0 {tablet} activ e Ciprofloxacin HCl 250 MG eCW1 ([facility]) Fluconazole 150 MG Oral Tablet Fluconazole 150 MG 03/05/2020 12:00: 00 AM EST 1.0 {tablet} suspended Fluconazole 150 M G eCW1 ([facility]) Fluconazole 150 MG Oral Tablet Fluconazole 150 MG 03/05/2020 12:00: 00 AM EST 1.0 {tablet} suspended Fluconazole 150 M G eCW1 ([facility]) Fluconazole 150 MG Oral Tablet Fluconazole 150 MG 03/05/2020 12:00: 00 AM EST 1.0 {tablet} suspended Fluconazole 150 M G eCW1 ([facility]) Ciprofloxacin 250 MG Oral Tablet Ciprofloxacin HCl 250 MG Ciprofloxacin HCl 250 MG 03/05/2020 12:00:00 AM EST 1.0 {tablet} suspe nded Ciprofloxacin HCl 250 MG eCW1 ([facility]) Ciprofloxacin 250 MG Oral Tablet Ciprofloxacin HCl 250 MG Ciprofloxacin HCl 250 MG 03/05/2020 12:00:00 AM EST 1.0 {tablet} activ e Ciprofloxacin HCl 250 MG eCW1 ([facility]) Ciprofloxacin 250 MG Oral Tablet Ciprofloxacin HCl 250 MG Ciprofloxacin HCl 250 MG 03/05/2020 12:00:00 AM EST 1.0 {tablet} suspe nded Ciprofloxacin HCl 250 MG eCW1 ([facility]) Fluconazole 150 MG Oral Tablet Fluconazole 150 MG 03/05/2020 12:00: 00 AM EST 1.0 {tablet} active Fluconazole 150 MG eCW1 ([facility]) Fluconazole 150 MG Oral Tablet Fluconazole 150 MG 03/05/2020 12:00: 00 AM EST 1.0 {tablet} suspended Fluconazole 150 M G eCW1 ([facility]) Ciprofloxacin 250 MG Oral Tablet Ciprofloxacin HCl 250 MG Ciprofloxacin HCl 250 MG 03/05/2020 12:00:00 AM EST 1.0 {tablet} suspe nded Ciprofloxacin HCl 250 MG eCW1 ([facility]) 250 mg 03/05/2020 12:00:00 AM EST tablet 6 TAKE ONE TABLET BY MOUTH EVERY 12 HOURS TAKE ONE TABLET BY MOUTH EVERY 12 HOURS SOLD: 03/05/2020 [facility] Ciprofloxacin 250 MG Oral Tablet Ciprofloxacin HCl 250 MG Ciprofloxacin HCl 250 MG 03/05/2020 12:00:00 AM EST 1.0 {tablet} suspe nded Ciprofloxacin HCl 250 MG eCW1 ([facility]) 150 mg 03/05/2020 12:00:00 AM EST tablet 2 TAKE ONE TABLET BY MOUTH, REPEAT IN THREE DAYS TAKE ONE TABLET BY MOUTH, REPEAT IN THREE DAYS SOLD: 03/15/2020 [facility] Ciprofloxacin 250 MG Oral Tablet Ciprofloxacin HCl 250 MG Ciprofloxacin HCl 250 MG 03/05/2020 12:00:00 AM EST 1.0 {tablet} suspe nded Ciprofloxacin HCl 250 MG eCW1 ([facility]) 150 mg 03/05/2020 12:00:00 AM EST tablet 2 TAKE ONE TABLET BY MOUTH, REPEAT IN THREE DAYS TAKE ONE TABLET BY MOUTH, REPEAT IN THREE DAYS SOLD: 03/05/2020 [facility] 200 mg 01/20/2020 12:00:00 AM EDT capsule 90 TAKE ONE CAPSULE BY MOUTH THREE TIMES A DAY NEEDED TAKE ONE CAPSULE BY MOUTH THREE TIMES A DAY NEEDED SOLD: 01/24/2020 [facility] 2 ML Sodium Hyaluronate 10 MG/ML Prefilled Syringe [Euflexxa ] Euflexxa 01/09/2020 12:00:00 AM EDT active MEDENT ([facility] ) 10 mg 01/08/2020 12:00:00 [...] 01/08/2020 12:00:00 AM EDT ORAL active MEDENT ([facility]) Acetaminophen 325 MG / Hydrocodone Bitartrate 5 MG Ora l Tablet Hydrocodone-Acetaminophen 01/05/2020 12:00:00 AM EDT active MEDENT ([facility]) 100,000 unit/mL 12/18/2019 12:00:00 [...] Prednisone 11/19/2019 12:00:00 AM EDT completed MEDENT ([facility]) 100 mg 11/19/2019 12:00:00 AM EDT tablet 20 TAKE ONE TABLET BY MOUTH TWICE A DAY FOR 10 DAYS TAKE ONE TABLET BY MOUTH TWICE A DAY FOR 10 DAYS SOLD: 11/19/2019 [facility] Doxycycline Monohydrate 100 MG Oral Tablet Doxycycline Monoh ydrate 11/19/2019 12:00:00 AM EDT ORAL completed MEDENT ([facility]) 10 mg 10/29/2019 12:00:00 AM EDT tablet 12 TAKE TWO TABLETS BY MOUTH EVERY DAY FOR 4 DAYS THEN TAKE ONE TABLET ONCE DAILY FOR 4 DAYS TAKE TWO TABLETS BY MOUTH EVERY DAY FOR 4 DAYS THEN TAKE ONE TABLET ONCE DAILY FOR 4 DAYS SOLD: 10/29/2019 [facility] 250 mg 10/27/2019 12:00:00 AM EDT tablet 6 TAKE TWO TABLETS BY MOUTH AT ONCE ON THE FIRST DAY THEN TAKE ONE DAILY THEREAFTER TAKE TWO TABLETS BY MOUTH AT ONCE ON THE FIRST DAY THEN TAKE ONE DAILY THEREAFTER SOLD: 10/27/2019 [facility] Azithromycin 250 MG Oral Tablet Azithromycin 10/27/2019 12:00:00 AM E DT ORAL completed MEDENT ([facility], ) Prednisone 10 MG Oral Tablet Prednisone 10/27/2019 12:00:00 AM EDT ORAL completed MEDENT ([facility], ) benzonatate 200 MG Oral Capsule Benzonatate 10/22/2019 12:00:00 AM EDT ORAL active MEDENT ([facility], ) Prednisone 10 MG Oral Tablet Prednisone 10/22/2019 12:00:00 AM EDT completed MEDENT ([facility], ) 60 ACTUAT formoterol fumarate 0.005 MG/A CTUAT / mometasone furoate 0.2 MG/ACTUAT Metered Dose Inhaler [Dulera] Dulera 10/22/2019 12:00:00 AM EDT RESPIRATORY completed MEDENT ([facility], ) One Touch Delica 33 gauge UNK 09/19/2019 12:00:00 AM EDT active One Touch Delica 33 gauge eCW1 ([facility]) One Touch Delica 33 gauge UNK 09/19/2019 12:00:00 AM EDT active One Touch Delica 33 gauge eCW1 ([facility]) One Touch Delica 33 gauge UNK 09/19/2019 12:00:00 AM EDT active One Touch Delica 33 gauge eCW1 ([facility]) BLOOD SUGAR DIAGNOSTIC 09/19/2019 12:00:00 AM EDT [...] active One Touch Delica 33 gauge eCW1 ([facility]) 33 gauge 09/19/2019 12:00:00 AM EDT misc 100 TEST DIRECTED TEST DIRECTED SOLD: 10/24/2019 [facility] One Touch Delica 33 gauge UNK 09/19/2019 12:00:00 AM EDT active One Touch Delica 33 gauge eCW1 ([facility]) One Touch Delica 33 gauge UNK 09/19/2019 12:00:00 AM EDT active One Touch Delica 33 gauge eCW1 ([facility]) One Touch Delica 33 gauge UNK 09/19/2019 12:00:00 AM EDT active One Touch Delica 33 gauge eCW1 ([facility]) One Touch Delica 33 gauge UNK 09/19/2019 12:00:00 AM EDT active One Touch Delica 33 gauge eCW1 ([facility]) One Touch Delica 33 gauge UNK 09/19/2019 12:00:00 AM EDT active One Touch Delica 33 gauge eCW1 ([facility]) One Touch Delica 33 gauge UNK 09/19/2019 12:00:00 AM EDT active One Touch Delica 33 gauge eCW1 ([facility]) 33 gauge 09/19/2019 12:00:00 AM EDT misc 100 TEST DIRECTED TEST DIRECTED SOLD: 09/21/2019 [facility] One Touch Delica 33 gauge UNK 09/19/2019 12:00:00 AM EDT active One Touch Delica 33 gauge eCW1 ([facility]) OneTouch Verio w/Device OneTouch Verio w/Device 09/18/2019 12:00:00 A M EDT active OneTouch Verio w/Dev ice eCW1 ([facility]) OneTouch Verio - OneTouch Verio - 09/18/2019 12:00:00 AM EDT active OneTouch Verio - eCW1 ([facility]) OneTouch Verio - OneTouch Verio - 09/18/2019 12:00:00 AM EDT active OneTouch Verio - eCW1 ([facility]) OneTouch Verio w/Device OneTouch Verio w/Device 09/18/2019 12:00:00 A M EDT active OneTouch Verio w/Dev ice eCW1 ([facility]) OneTouch Verio w/Device OneTouch Verio w/Device 09/18/2019 12:00:00 A M EDT active OneTouch Verio w/Dev ice eCW1 ([facility]) OneTouch Verio w/Device OneTouch Verio w/Device 09/18/2019 12:00:00 A M EDT active OneTouch Verio w/Dev ice eCW1 ([facility]) OneTouch Verio - OneTouch Verio - 09/18/2019 12:00:00 AM EDT active OneTouch Verio - eCW1 ([facility]) OneTouch Verio w/Device OneTouch Verio w/Device 09/18/2019 12:00:00 A M EDT active OneTouch Verio w/Dev ice eCW1 ([facility]) OneTouch Verio - OneTouch Verio - 09/18/2019 12:00:00 AM EDT active OneTouch Verio - eCW1 ([facility]) OneTouch Verio w/Device OneTouch Verio w/Device 09/18/2019 12:00:00 A M EDT active OneTouch Verio w/Dev ice eCW1 ([facility]) OneTouch Verio - OneTouch Verio - 09/18/2019 12:00:00 AM EDT active OneTouch Verio - eCW1 ([facility]) OneTouch Verio w/Device OneTouch Verio w/Device 09/18/2019 12:00:00 A M EDT active OneTouch Verio w/Dev ice eCW1 ([facility]) OneTouch Verio w/Device OneTouch Verio w/Device 09/18/2019 12:00:00 A M EDT active OneTouch Verio w/Dev ice eCW1 ([facility]) OneTouch Verio w/Device OneTouch Verio w/Device 09/18/2019 12:00:00 A M EDT active OneTouch Verio w/Dev ice eCW1 ([facility]) OneTouch Verio - OneTouch Verio - 09/18/2019 12:00:00 AM EDT active OneTouch Verio - eCW1 ([facility]) OneTouch Verio w/Device OneTouch Verio w/Device 09/18/2019 12:00:00 A M EDT active OneTouch Verio w/Dev ice eCW1 ([facility]) OneTouch Verio - OneTouch Verio - 09/18/2019 12:00:00 AM EDT active OneTouch Verio - eCW1 ([facility]) OneTouch Verio - OneTouch Verio - 09/18/2019 12:00:00 AM EDT active OneTouch Verio - eCW1 ([facility]) OneTouch Verio w/Device OneTouch Verio w/Device 09/18/2019 12:00:00 A M EDT active OneTouch Verio w/Dev ice eCW1 ([facility]) OneTouch Verio - OneTouch Verio - 09/18/2019 12:00:00 AM EDT active OneTouch Verio - eCW1 ([facility]) OneTouch Verio - OneTouch Verio - 09/18/2019 12:00:00 AM EDT active OneTouch Verio - eCW1 ([facility]) OneTouch Verio - OneTouch Verio - 09/18/2019 12:00:00 AM EDT active OneTouch Verio - eCW1 ([facility]) 200 ACTUAT Levalbuterol 0.045 MG/ACTUAT Metered Dose I nhaler Levalbuterol Tartrate 09/15/2019 12:00:00 AM EDT RESPIRATORY active MEDENT ([facility], ) 0.625 mg/gram 08/28/2019 12:00:00 [...] AM EDT active Premarin 0.625 MG/GM eCW1 ([facility]) Estrogens, Conjugated (MCC) 0.625 MG/ML Vaginal Cream [Premarin] Premarin 0.625 MG/GM Premarin 0.625 MG/GM 08/27/2019 12:00:00 AM EDT suspended Premarin 0.625 MG/GM eCW1 ([facility]) Estrogens, Conjugated (MCC) 0.625 MG/ML Vaginal Cream [Premarin] Premarin 0.625 MG/GM Premarin 0.625 MG/GM 08/27/2019 12:00:00 AM EDT suspended Premarin 0.625 MG/GM eCW1 ([facility]) Estrogens, Conjugated (MCC) 0.625 MG/ML Vaginal Cream [Premarin] Premarin 0.625 MG/GM Premarin 0.625 MG/GM 08/27/2019 12:00:00 AM EDT suspended Premarin 0.625 MG/GM eCW1 ([facility]) Estrogens, Conjugated (MCC) 0.625 MG/ML Vaginal Cream [Premarin] Premarin 0.625 MG/GM Premarin 0.625 MG/GM 08/27/2019 12:00:00 AM EDT active Premarin 0.625 MG/GM eCW1 ([facility]) Estrogens, Conjugated (MCC) 0.625 MG/ML Vaginal Cream [Premarin] Premarin 0.625 MG/GM Premarin 0.625 MG/GM 08/27/2019 12:00:00 AM EDT active Premarin 0.625 MG/GM eCW1 ([facility]) Estrogens, Conjugated (MCC) 0.625 MG/ML Vaginal Cream [Premarin] Premarin 0.625 MG/GM Premarin 0.625 MG/GM 08/27/2019 12:00:00 AM EDT active Premarin 0.625 MG/GM eCW1 ([facility]) Estrogens, Conjugated (MCC) 0.625 MG/ML Vaginal Cream [Premarin] Premarin 0.625 MG/GM Premarin 0.625 MG/GM 08/27/2019 12:00:00 AM EDT suspended Premarin 0.625 MG/GM eCW1 ([facility]) Estrogens, Conjugated (MCC) 0.625 MG/ML Vaginal Cream [Premarin] Premarin 0.625 MG/GM Premarin 0.625 MG/GM 08/27/2019 12:00:00 AM EDT suspended Premarin 0.625 MG/GM eCW1 ([facility]) Estrogens, Conjugated (MCC) 0.625 MG/ML Vaginal Cream [Premarin] Premarin 0.625 MG/GM Premarin 0.625 MG/GM 08/27/2019 12:00:00 AM EDT active Premarin 0.625 MG/GM eCW1 ([facility]) Estrogens, Conjugated (MCC) 0.625 MG/ML Vaginal Cream [Premarin] Premarin 0.625 MG/GM Premarin 0.625 MG/GM 08/27/2019 12:00:00 AM EDT active Premarin 0.625 MG/GM eCW1 ([facility]) Estrogens, Conjugated (MCC) 0.625 MG/ML Vaginal Cream [Premarin] Premarin 0.625 MG/GM Premarin 0.625 MG/GM 08/27/2019 12:00:00 AM EDT active Premarin 0.625 MG/GM eCW1 ([facility]) Estrogens, Conjugated (MCC) 0.625 MG/ML Vaginal Cream [Premarin] Premarin 0.625 MG/GM Premarin 0.625 MG/GM 08/27/2019 12:00:00 AM EDT suspended Premarin 0.625 MG/GM eCW1 ([facility]) Estrogens, Conjugated (MCC) 0.625 MG/ML Vaginal Cream [Premarin] Premarin 0.625 MG/GM Premarin 0.625 MG/GM 08/27/2019 12:00:00 AM EDT suspended Premarin 0.625 MG/GM eCW1 ([facility]) 137 mcg (0.1 %) 08/08/2019 12:00:00 AM [...] MEDENT ([facility] 15 mg 07/29/2019 12:00:00 AM EDT [...] Kit/Tubing/Mouthpiece 07/23/2019 12:00:00 AM EDT active MEDENT ([facility], ) . UNIT 07/23/2019 12:00:00 AM EDT Misc 2 DI RECTED DIRECTED SOLD: 07/24/2019 [facility] Albuterol 0.83 MG/ML Inhalant Solution Albuterol Sulfate 0 07/23/2019 12:00:00 AM EDT active MEDENT ([facility]) 2.5 mg /3 mL (0.083 [...] suspended Ketor olac Tromethamine 0.4 % eCW1 ([facility]) Ketorolac Tromethamine 4 MG/ML Ophthalmic Solution Ket orolac Tromethamine 0.4 % Ketorolac Tromethamine 0.4 % 07/18/2019 12:00:00 AM EDT 1.0 {drop_into_affected_eye} suspended Ketor olac Tromethamine 0.4 % eCW1 ([facility]) Ketorolac Tromethamine 4 MG/ML Ophthalmic Solution Ket orolac Tromethamine 0.4 % Ketorolac Tromethamine 0.4 % 07/18/2019 12:00:00 AM EDT 1.0 {drop_into_affected_eye} suspended Ketor olac Tromethamine 0.4 % eCW1 ([facility]) Ketorolac Tromethamine 4 MG/ML Ophthalmic Solution Ket orolac Tromethamine 0.4 % Ketorolac Tromethamine 0.4 % 07/18/2019 12:00:00 AM EDT active 1 drop into affected eye eCW1 ([facility]) 0.4 % 07/18/2019 12:00:00 AM EDT drops [...] [facility] 05/29/2019 12:00:00 AM EST active MEDENT ([facility]) 50 mg 05/01/2019 12:00:00 AM EST tablet 7 TAKE ONE TABLET BY MOUTH AT BEDTIME FOR COUGH MAXIMUM DAILY DOSE = 1 TABLET TAKE ONE TABLET BY MOUTH AT BEDTIME FOR COUGH MAXIMUM DAILY DOSE = 1 TABLET SOLD: 05/01/2019 [facility] tramadol hydrochloride 50 MG Oral Tablet Tramadol HCL 05/01/2019 12:00:00 AM EST ORAL completed MEDENT ([facility], ) Ciprofloxacin 500 MG Oral Tablet [Cipro] Cipro 05/01/2019 12:00: 00 AM EST ORAL completed MEDENT ([facility], ) tramadol hydrochloride 50 MG Oral Tablet Tramadol HCL 04/30/2019 12:00:00 AM EST ORAL completed MEDENT ([facility], ) benzonatate 200 MG Oral Capsule Benzonatate 200 MG Benzonata te 200 MG 04/30/2019 12:00:00 AM EST 1.0 {capsule} active Benzonatate 200 MG eCW1 ([facility]) Metformin hydrochloride 500 MG Oral Tablet Metformin H Cl 500 MG Metformin HCl 500 MG 04/30/2019 12:00:00 AM EST active Metformin HCl 500 MG eCW1 ([facility]) Metformin hydrochloride 500 MG Oral Tablet Metformin H Cl 500 MG Metformin HCl 500 MG 04/30/2019 12:00:00 AM EST active Metformin HCl 500 MG eCW1 ([facility]) benzonatate 200 MG Oral Capsule Benzonatate 200 MG Benzonata te 200 MG 04/30/2019 12:00:00 AM EST 1.0 {capsule} active Benzonatate 200 MG eCW1 ([facility]) benzonatate 200 MG Oral Capsule Benzonatate 200 MG Benzonata te 200 MG 04/30/2019 12:00:00 AM EST 1.0 {capsule} active Benzonatate 200 MG eCW1 ([facility]) Metformin hydrochloride 500 MG Oral Tablet Metformin H Cl 500 MG Metformin HCl 500 MG 04/30/2019 12:00:00 AM EST active Metformin HCl 500 MG eCW1 ([facility]) Metformin hydrochloride 500 MG Oral Tablet Metformin H Cl 500 MG Metformin HCl 500 MG 04/30/2019 12:00:00 AM EST active 2 tabs with meals, bid eCW1 ([facility]) Clarithromycin 500 MG Oral Tablet [Biaxin] Biaxin 04/30/2019 12:00:00 AM EST ORAL completed MEDENT ([facility], ) benzonatate 200 MG Oral Capsule Benzonatate 200 MG Benzonata te 200 MG 04/30/2019 12:00:00 AM EST active 1 capsu le eCW1 ([facility]) Metformin hydrochloride 500 MG Oral Tablet Metformin H Cl 500 MG Metformin HCl 500 MG 04/30/2019 12:00:00 AM EST active Metformin HCl 500 MG eCW1 ([facility]) Metformin hydrochloride 500 MG Oral Tablet Metformin H Cl 500 MG Metformin HCl 500 MG 04/30/2019 12:00:00 AM EST active Metformin HCl 500 MG eCW1 ([facility]) Metformin hydrochloride 500 MG Oral Tablet Metformin H Cl 500 MG Metformin HCl 500 MG 04/30/2019 12:00:00 AM EST active Metformin HCl 500 MG eCW1 ([facility]) Metformin hydrochloride 500 MG Oral Tablet Metformin H Cl 500 MG Metformin HCl 500 MG 04/30/2019 12:00:00 AM EST active 1tab AM 2 tabs PM eCW1 ([facility]) benzonatate 200 MG Oral Capsule Benzonatate 200 MG Benzonata te 200 MG 04/30/2019 12:00:00 AM EST active 1 capsu le eCW1 ([facility]) benzonatate 200 MG Oral Capsule Benzonatate 200 MG Benzonata te 200 MG 04/30/2019 12:00:00 AM EST 1.0 {capsule} active Benzonatate 200 MG eCW1 ([facility]) Metformin hydrochloride 500 MG Oral Tablet Metformin H Cl 500 MG Metformin HCl 500 MG 04/30/2019 12:00:00 AM EST active 1tab AM 2 tabs PM eCW1 ([facility]) Metformin hydrochloride 500 MG Oral Tablet Metformin H Cl 500 MG Metformin HCl 500 MG 04/30/2019 12:00:00 AM EST active Metformin HCl 500 MG eCW1 ([facility]) Metformin hydrochloride 500 MG Oral Tablet Metformin H Cl 500 MG Metformin HCl 500 MG 04/30/2019 12:00:00 AM EST active 2 tablet with a meal eCW1 ([facility]) benzonatate 200 MG Oral Capsule Benzonatate 200 MG Benzonata te 200 MG 04/30/2019 12:00:00 AM EST active 1 capsu le eCW1 ([facility]) Metformin hydrochloride 500 MG Oral Tablet Metformin H Cl 500 MG Metformin HCl 500 MG 04/30/2019 12:00:00 AM EST active 2 tablet with a meal eCW1 ([facility]) Metformin hydrochloride 500 MG Oral Tablet Metformin H Cl 500 MG Metformin HCl 500 MG 04/30/2019 12:00:00 AM EST active Metformin HCl 500 MG eCW1 ([facility]) Metformin hydrochloride 500 MG Oral Tablet Metformin H Cl 500 MG Metformin HCl 500 MG 04/30/2019 12:00:00 AM EST active Metformin HCl 500 MG eCW1 ([facility]) benzonatate 200 MG Oral Capsule Benzonatate 200 MG Benzonata te 200 MG 04/30/2019 12:00:00 AM EST 1.0 {capsule} active Benzonatate 200 MG eCW1 ([facility]) Metformin hydrochloride 500 MG Oral Tablet Metformin H Cl 500 MG Metformin HCl 500 MG 04/30/2019 12:00:00 AM EST active Metformin HCl 500 MG eCW1 ([facility]) Metformin hydrochloride 500 MG Oral Tablet Metformin H Cl 500 MG Metformin HCl 500 MG 04/30/2019 12:00:00 AM EST active Metformin HCl 500 MG eCW1 ([facility]) Metformin hydrochloride 500 MG Oral Tablet Metformin H Cl 500 MG Metformin HCl 500 MG 04/30/2019 12:00:00 AM EST active Metformin HCl 500 MG eCW1 ([facility]) benzonatate 200 MG Oral Capsule BENZONATATE 04/30/2019 12:00:00 AM EST capsule 90 TAKE ONE CAPSULE BY MOUTH THREE TIMES A DAY NEEDED TAKE ONE CAPSULE BY MOUTH THREE TIMES A DAY NEEDED SOLD: 05/01/2019 [facility] Metformin hydrochloride 500 MG Oral Tablet Metformin H Cl 500 MG Metformin HCl 500 MG 04/30/2019 12:00:00 AM EST active Metformin HCl 500 MG eCW1 ([facility]) 500 mg 04/30/2019 12:00:00 AM EST tablet 120 TAKE TWO TABLETS BY MOUTH TWICE A DAY WITH A MEAL, TITRATING DIRECTED TAKE TWO TABLETS BY MOUTH TWICE A DAY WITH A MEAL, TITRATING DIRECTED SOLD: 06/20/2019 [facility] benzonatate 200 MG Oral Capsule Benzonatate 200 MG Benzonata te 200 MG 04/30/2019 12:00:00 AM EST 1.0 {capsule} active Benzonatate 200 MG eCW1 ([facility]) 200 mg 04/30/2019 12:00:00 AM EST capsule 90 TAKE ONE CAPSULE BY MOUTH THREE TIMES A DAY NEEDED TAKE ONE CAPSULE BY MOUTH THREE TIMES A DAY NEEDED SOLD: 12/26/2019 [facility] Metformin hydrochloride 500 MG Oral Tablet Metformin H Cl 500 MG Metformin HCl 500 MG 04/30/2019 12:00:00 AM EST active Metformin HCl 500 MG eCW1 ([facility]) 500 mg 04/30/2019 12:00:00 AM EST tablet [...] 04/17/2019 12:00:00 AM EST ORAL active MED[facility] ([facility] 500 mg 04/17/2019 [...] AM EST active 2 tablet s eCW1 ([facility]) benzonatate 200 MG Oral Capsule Benzonatate 200 MG Benzonata te 200 MG 04/04/2019 12:00:00 AM EST active 1 capsu le as needed for cough eCW1 ([facility]) benzonatate 200 MG Oral Capsule BENZONATATE [...] , then 1 tablet x4 days eCW1 ([facility]) PredniSONE 10 MG PredniSONE 10 MG 03/20/2019 12:00:00 AM EST active 4 tablets daily x 7 days, then 3 daily x 3 days, then 2 daily x 3 days, then 1 daily x 3 days eCW1 ([facility]) PredniSONE 10 MG PredniSONE 10 MG 03/20/2019 12:00:00 AM EST active 4 tablets daily x 7 days, then 3 daily x 3 days, then 2 daily x 3 days, then 1 daily x 3 days eCW1 ([facility]) 10 mg 03/20/2019 12:00:00 AM EST tablet [...] 12:00:00 AM EST active 1 tablet eCW1 ([facility]) Levofloxacin 750 MG Oral Tablet [Levaquin] Levaquin 750 MG L evaquin 750 MG 03/20/2019 12:00:00 AM EST active 1 tablet eCW1 ([facility]) 750 mg 03/20/2019 12:00:00 AM EST tablet [...] 12:00:00 AM E DT ORAL completed MED[facility] [place] Insurance Providers Payer name Policy type / Coverage type Policy ID Covered democrat ID Covered democrat's relationship to dejesus Policy Dejesus Plan Information MEDICARE [id number] SP [id number] [facility] [id number] SP [id number] MEDICARE [id number] SP [id number] A UMR O [id number] S [id number] UMR [id number] S [id number] [facility] [id number] S [id number] [employer] [place] Other 0 Self 0 [employer] [place] Other [address] [facility] [id number] ANSI-Commercial [id number] [facility] [id number] Self [id number] Umr Commercial [id number] Self [id number] [facility] Part B [id number] Self [id number] ANSI-Commercial [id number] ANSI-Commercial [id number] ANSI-Commercial [id number] ANSI-Commercial [id number]-1513-[id number] ANSI-Commercial g0324n07-4ptx-3rk7-80hm-x6332bl588u7 k6670m49-7lxs-6qa5-70zi-[id number] ANSI-Commercial im093zv9-8l86-5206-46c1-j88gd0hno71j ot443gt4-0b64-7550-20b4-e80gg8eev22h [employer] [place] Other 0 Self 0 [employer] [place] Other 0 Self 0 ANSI-Commercial y095hz73-8368-4o91-6b6g-qlq7f4e9sgev v429sn95-1349-0k73-3n0a-zft3k6h5zvrb ANSI-Commercial 52x1qs30-qel3-9rl6-0580-2f98x24f11b6 89w7tl25-jkh4-0pg5-2954-3o00h64q50t6 ANSI-Commercial v90or39o-802y-253y-vbl7-3in3q8o13v29 w61vj80a-288u-418j-uhd1-8fu4f2g66n72 ANSI-Commercial 4z4ggv15-v849-1h33-u9u9-9vm27icnq971 7w8yxg46-v949-1a18-p5j0-2zf95cose610 ANSI-Commercial 81oo6w39-2473-098d-cp85-31t6881ey59f 80qc6m66-7372-605l-ki66-91z3598ok73t [facility] (O) [id number] Self [id number] ANSI-Commercial 6u63pi20-b5r4-7952-h23h-[id number] 1d29iv18-c1s9-9212-t14z-85383s1487h3 ANSI-Commercial [id number]-vrz0-50jjr3d306wd [id number]-zqn6-23zhq7u481xt ANSI-Commercial 7z3a3l1s-x9t9-9gor-8749-e4dk112k6425 1h1r0o1h-h4e4-0leo-6591-f3wk421f0269 ANSI-Commercial dr717oi1-1rtb-408m-l2iv-z39p4yny0qwc vt733gi1-5avi-368m-u1tl-u52y0uzo3wbn ANSI-Commercial u2o39885-z939-276a-n7sn-8789r8x52f7t m3v67687-u237-177d-f3dk-6438j8g98l6b ANSI-Commercial 4677jp15-r66j-1b27-ym41-[id number] 3748as03-p82x-9v27-lv48-[id number] [facility] [id number] ANSI-Commercial 13c68oth-88s9-6078-283a-i02cxfy4p78a 36o23sge-12a8-1968-076n-l49lnxp4d77t ANSI-Commercial 8fa9i637-35f0-0u35-p1z0-19c20aeb8f7o 1tk3n321-00z1-2m88-s9u3-95a63hzq3u5d ANSI-Commercial i17r3c00-020t-14a5-cv3o-4332d8g0y2w7 r48m6r25-464e-16k7-hs2e-5442c3s4e2s4 ANSI-Commercial [id number]-346r-7do0t5hi0o1u 32046674-0741-283o-698a-3rh4v0oi1q6y ANSI-Commercial 9g60v28a-64j4-5ca4-a936-4wz04h9u5i61 5w84c21e-46d8-2lz7-l927-8rw23l6q7h47 ANSI-Commercial 2139znr7-8w65-834n-03x3-359q90nn75p4 1685sfu4-5e02-575m-84x6-737w11kz76i0 ANSI-Commercial 55nl6202-6117-74w7-8693-57kq8su10974 78jz4190-8722-01s6-3493-68fu5ug11066 ANSI-Commercial v640t246-3ge8-267a-227s-5lot374u7726 u385i724-8nq6-362a-268d-1lvx654q0090 ANSI-Commercial 7053fj51-87t8-79p6-[id number] 0469bj75-86f5-61k0-f379-1fq412f13410 ANSI-Commercial 1d63j3rs-5709-9dd2-6t35-b8elvzu14195 5v43y1mp-1134-5xl8-4g97-u1bvoxe89225 ANSI-Commercial 822an99e-bm2e-8920-0m6l-adq9ke04748p 897ii22i-yv2m-9045-6w4d-ckm2al97836f ANSI-Commercial hz22ln36-e4xx-173t-tc7u-0b85fx04q7s4 ke94xv20-b1as-441y-ar4x-9e71wx90o8m3 [employer] [place] Other 0 Self 0 [employer] [place] Other 0 Self 0 [employer] [place] Other 0 Self 0 ANSI-Commercial [id number]-[id number]-vv78-36de-y2hl-[id number] ANSI-Commercial 3p00y6xz-4057-0146-n1f5-e712847w8r4n 2l30y2xd-1507-3198-v7g3-c827419i7z3b ANSI-Commercial 33022781-b31d-875h-h78z-t36l7sw3k9y5 12873301-b09j-896g-w00a-m11p5pe8g6n1 ANSI-Commercial 1h74gk5e-2z50-419c-80gf-310178p1i9g1 1q37gz6a-6j16-346w-07in-724004x5a8f7 ANSI-Commercial 6quvqg3a-1336-0527-t63b-53gx57cut33j 2tvtii2j-5548-3658-f03c-51pc66ypr85c ANSI-Commercial 672t7954-f3bb-00oh-7245-d330813c4j86 371z6607-f1po-00jo-0876-c779407p8s61 ANSI-Commercial 16o3w768-807h-8695-t991-86sp590dd0vw 55o6t196-579d-4702-q733-87yz773ly9zo ANSI-Commercial 10827o75-c2n0-2vkk-b9uf-17x967jic54q 89882l35-s8k8-8amx-k3hv-02d817ebc91h ANSI-Commercial 7l0k9503-39j5-6d9e-95ts-n5925sxro965 1p2b3694-44h0-3l3c-91sf-c7509bwft996 R [facility] [id number] SP [id number] Umr Commercial [id number] Self [id number] Umr Commercial [id number] Self [id number] ANSI-Commercial 18586ysy-2008-4078-n4jw-529j036p2jv7 [id number]-0289-3975-w3lt-706z702x9cy6 ANSI-Commercial gt61y67a-8l94-1o6c-bz79-o7833319t96c oy74d00u-3j17-6l4b-gh12-[id number] R [id number] S [id number] ANSI-Commercial 2qo4407p-9t0z-70am-sa21-28155j77yi6v 5ad9863v-2k1q-82es-ch13-16109p46vo8z ANSI-Commercial 6ne8x607-c69n-050t-621l-46078r6spe27 1md2q591-y14b-761a-252x-17170g4wpb63 ANSI-Commercial 251g4l30-r741-0v6i-5q98-8828d27w657x 454c7l71-i517-3p5d-0e95-2977h16k900a ANSI-Commercial 68742jwu-260n-0174-2368-8i979dxpcw03 28728mgq-302t-2873-8782-7d207yhcfh76 R [id number] S [id number] UMR .[id number] 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 .[id number] [employer] [id number] S [id number] Umr Commercial [id number] Self [id number] [employer] [id number] Self [id number] [employer] [id number] SP [id number] [employer] PPO O [id number] S [id number] [employer] Medigap Part B Self [employer] Commercial Self [employer] Commercial Self [employer] PPO P [id number] S [id number] Problems, Conditions, and Diagnoses Code Display Name Description Problem Type Effective Dates Data Source(s) N81.0 97261014 Urethrocele Problem 04/07/2020 12:00:[address] eCW1 ([facility]) N81.6 5447375 Rectocele Problem 04/07/2020 12:00:00 AM ES T eCW1 ([facility]) G89.29 36177843 Other chronic pain Problem 03/02/2020 12:00: 00 AM EST eCW1 ([facility]) E78.2 520644769 Mixed hyperlipidemia Problem 03/02/2020 12:0 0:00 AM EST eCW1 ([facility]) M22.40 71435886 Chondromalacia of patella, unspecified la terality Problem 10/10/2019 12:00:00 AM EDT eCW1 ([facility]) Z90.710 047572756 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 Problem 08/27/2019 12:00:00 AM EDT eCW1 ([facility]) N95.2 054306640 Vaginal atrophy Problem 08/27/2019 12:00:00 AM EDT eCW1 ([facility]) K59.00 64337092 Constipation in female Problem 08/27/2019 12 :00:00 AM EDT eCW1 ([facility]) N81.11 565142667 Midline cystocele Problem 08/27/2019 12:00:0 0 AM EDT eCW1 ([facility]) N94.10 32314701 Dyspareunia in female Problem 08/27/2019 12: 00:00 AM EDT eCW1 ([facility]) N39.3 25235020 Stress incontinence in female Problem 2019 12:00:00 AM EDT eCW1 ([facility]) Encounter for allergy testing Encounter for allergy te sting Problem 08/07/2019 12:00:00 AM EDT MED[facility] ([facility] ) [id number] Uncomplicated moderate persistent asthma Uncomplicated moderate persistent asthma Problem 07/23/2019 12:00:00 AM EDT MED[facility] (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, without long-term current use of insulin Problem 04/30/2019 12:00:00 AM EST eCW1 ([facility]) I10 Benign essential hypertension Essential hypertension P roblem 04/30/2019 12:00:00 AM EST eCW1 ([facility]) I10 Benign essential hypertension Essential hypertension P roblem 04/30/2019 12:00:00 AM EST eCW1 ([facility]) E09.9 8252906 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, without long-term current use of insulin Problem 04/30/2019 12:00:00 AM EST eCW1 ([facility]) 74190678 Lymphadenopathy Lymphadenopathy Problem 04/08/2019 12:0 0:00 AM EST MEDENT ([facility] 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 O THER HALF-WAY (CURRENT) DRUG THERAPY Diagnosis 01/30/2020 03:46:00 PM EST [facility] Z79.891 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 Diagnosis 01/30/2020 03:46:00 PM EST [facility] Z79.84 HALF-WAY (CURRENT) USE OF ORAL HYPOGLYC EMIC DRUGS HALF-WAY (CURRENT) USE OF ORAL HYPOGLYCEMIC DRUGS Diagnosis 01/30/2020 03:46:00 PM [facility] Z79.82 FCI (current) use of aspirin HALF-WAY (CU RRENT) USE OF ASPIRIN Diagnosis 01/30/2020 03:46:00 PM [facility] J44.9 Chronic obstructive pulmonary disease, u nspecified CHRONIC OBSTRUCTIVE PULMONARY DISEASE, UNSPECIFIED Diagnosis 01/30/2020 03:46:00 PM [facility] M79.661 Pain in right lower leg PAIN IN RIGHT LOWER LEG Diagno sis 01/30/2020 03:46:00 PM [facility] M79.651 Pain in right thigh PAIN IN RIGHT THIGH Diagnosis 1 03/31/2019 03:46:00 PM [facility] M25.561 Pain in right knee PAIN IN RIGHT KNEE Diagnosis 08/2019 03:46:00 PM [facility] M79.89 Other specified soft tissue disorders OT HER SPECIFIED SOFT TISSUE DISORDERS Diagnosis 01/30/2020 03:46:00 PM [facility] R05 Cough COUGH Diagnosis 04/04/2019 12:16:00 PM [facility] R06.2 Wheezing WHEEZING Diagnosis 04/04/2019 11:30:00 AM [facility] Surgeries/Procedures Procedure Description Date Indications Data Source(s) ARTHROCENTESIS ASPIR&/INJECTION MAJOR JT/BURSA 021 12:00:00 AM EST MED[facility] ([facility] ) ARTHROCENTESIS ASPIR&/INJECTION MAJOR JT/BURSA 020 12:00:00 AM EST [facility] ([facility] ) ARTHRS KNE SURG W/MENISCECTOMY MED/LAT W/SHVG 01/29/20 20 12:00:00 AM EST [facility] ([facility] ) ARTHROCENTESIS ASPIR&/INJECTION MAJOR JT/BURSA 12:00:00 AM EST [facility] ([facility] ) ARTHROCENTESIS ASPIR&/INJECTION MAJOR JT/BURSA 12:00:00 AM EDT MED[facility] ([facility] ) ARTHROCENTESIS ASPIR&/INJECTION MAJOR JT/BURSA 020 12:00:00 AM EDT MED[facility] ([facility] ) MRI Lower Extremity Any Joint 10/22/2019 12:00:00 AM E DT MEDCASANDRA ([facility] ) Spirometry 10/22/2019 12:00:00 AM BRITTANYT Basil BRICEÑO ([facility], ) X-Ray Spine Lumbosacral Complete Inc Bending Views Min Of 6 10/14/2019 12:00:00 AM EDT MEDCASANDRA ([facility] ) RADIOLOGIC EXAM KNEE COMPLETE 4/MORE VIEWS 10/14/2019 12:00:00 AM EDT MED[facility] ([facility] ) ARTHROCENTESIS ASPIR&/INJECTION MAJOR JT/BURSA 020 12:00:00 AM EDT MED[facility] ([facility] ) PERCUTANEOUS TESTS W/ALLERGENIC EXTRACTS 08/07/2019 12 :00:00 AM EDT MED[facility] ([facility]) INTRACUTANEOUS TESTS W/ALLERGENIC EXTRACTS 08/07/2019 12:00:00 AM EDT MED[facility] ([facility]) Spirometry 07/23/2019 12:00:00 AM EDT M EDENT ([facility], ) URINE-NO MICRO 05/30/2019 12:00:00 AM EST eCW1 ([facility]) MEDICAL NUTRITION INDIV IN 05/21/2019 12:00:00 AM EST eCW1 ([facility]) Endoscopy Nasal Diagnostic 04/30/2019 12:00:00 AM EST MEDENT ([facility], ) RESPIRATORY FLOW VOLUME LOOP 04/08/2019 12:00:00 AM ES T MED[facility] ([facility] Results ID Date Data Source [id number] 04/25/2020 12:00:00 AM EST [facility] Name Value Range Interpretation Code Description Data Saige rce(s) Supporting Document(s) SARS coronavirus 2 Ag Negative [facility] This lab was ordered by [facility] and reported by [facility]. ID Date Data Source URINE CULTURE 03/15/2020 12:00:00 AM EST eCW1 ([facility]) Name Value Range Interpretation Code Description Data Saige rce(s) Supporting Document(s) URINE CULTURE eCW1 ([facility]) ID Date Data Source BEDSIDE GLUCOSE 03/02/2020 12:00:00 AM EST eCW1 ([facility]) Name Value Range Interpretation Code Description Data Saige rce(s) Supporting Document(s) 114 BEDSIDE GLUCOSE eCW1 ([facility]) ID Date Data Source Urinalysis, no micro 03/02/2020 12:00:00 AM EST eCW1 ([facility]) Name Value Range Interpretation Code Description Data Saige rce(s) Supporting Document(s) 1.020 1.002 - 1.035 Spec gravity eCW1 ([facility]) 5 5.0 - 9.0 pH eCW1 ([facility]) positive Negative - Leukocyte eCW1 ([facility]) neg Negative - Nitrate eCW1 ([facility]) trace Negative - mg/dl Protein eCW1 ([facility]) neg Negative - mg/dl Glucose eCW1 ([facility]) neg Negative - mg/dl Ketones eCW1 ([facility]) normal Normal - mg/dl Urobili eCW1 ([facility]) 50 Negative - Blood eCW1 ([facility]) neg Negative - Bilirubin eCW1 ([facility]) yes Internal QC Acceptable (Y/N) e CW1 ([facility]) ID Date Data Source [id number] 01/30/2020 04:42:00 PM EST [facility] Patient: ELHAM VERAS Observation R eport - Physicians/Mid Levels [facility].VisitID: [id number] [place] [address] [phone], FRegistration Date/Time: 01/30/2020 14:32 Weight:63.5 kg (S). [...] Value Range Interpretation Code Description Data [facility] rce(s) Supporting Document(s) ID Date Data Source [id number] 01/30/2020 04:00:00 PM EST [facility] [...] Value Range Interpretation Code Description Data [facility] rce(s) Supporting Document(s) ID Date Data Source [id number] 01/24/2020 11:00:00 AM EDT [facility] ([facility] ) Name Value Range Interpretation Code Description Data [facility] Document(s) Coronavirus 2019 Nasopharygeal Laboratory test result [facility] ([facility] ) This nucleic acid amplification test was developed and its performance characteristics determined by [employer]. Nucleic acid amplification tests include PCR and [...] in this assay. Performed at: - [facility] [address] [id number] Radio Program Director: Angie Torres MD, Phone: [phone] Not Detected ID Date Data Source [id number] 01/24/2020 11:00:00 AM EDT [facility] Name Value Range Interpretation Code Description Data Saige rce(s) Supporting Document(s) SARS coronavirus 2 RNA [facility] This lab was ordered by [facility] and reported by [facility]. ID Date Data Source [id number] 01/08/2020 02:21:00 PM EDT MEDENT ([facility], ) Name Value Range Interpretation Code Description Data Saige rce(s) Supporting Document(s) PDFReport Laboratory test result MEDENT ([facility], ) FVC-Pred 3.13 L MEDENT ([facility]) FVC-Pre 2.99 L [facility] ([facility]) FVC-%Pred-Pre 95 L MEDENT ([facility]) FVC-LLN 2.49 L [facility] ([facility]) Fev1-%Pred-Pre 103 L MEDENT ([facility]) Fev1-Pre 2.53 L [facility] ([facility]) Fev1-Pred 2.45 L [facility] ([facility]) Fev6-Pre 2.99 L [facility] ([facility]) Fev1-LLN 1.91 L [facility] ([facility]) Fev6-Pred 3.03 L [facility] ([facility]) Fev6-LLN 2.41 L [facility] ([facility]) Fev6-%Pred-Pre 98 L MEDENT ([facility], ) Lfx6sns-Yysc 79 % MED[facility] ([facility]) Ggk9jou-ZEN 69 % [facility] ([facility]) Zjw7nqf-Toko 97 % [facility] ([facility]) Oaz3caf-%Pred-Pre 107 % MEDENT ([facility]) Otm3tuq-Eqh 85 % [facility] ([facility]) Lee4bko-Oke 100 % [facility] ([facility]) Izp8oli-%Pred-Pre 103 % [facility] ([facility]) FEFMax-Pred 6.16 L/E/sec MED[facility] ([facility]) FEFMax-%Pred-Pre 81 L/E/sec [facility] ([facility]) FEFMax-LLN 4.58 L/E/sec [facility] ([facility]) FEFMax-Pre 5.02 L/E/sec [facility] ([facility]) Fwj7310-%Pred-Pre 128 L/E/sec [facility] ([facility]) Eur4432-Qri 3.10 L/E/sec [facility] ([facility]) Uam0420-Udmz 2.42 L/E/sec MED[facility] ([facility]) Elf1478-UII 1.27 L/E/sec [facility] ([facility]) ExpTime-Pre 5.52 sec [facility] ([facility]) Mdm7nrp3-Pbrd 82 % [facility] ([facility]) Vdq0rys0-%Pred-Pre 103 % MED[facility] ([facility]) Sdr7ldv0-Kbo 85 % [facility] ([facility]) Hpk8dgk4-DRM 73 % [facility] ([facility]) ID Date Data Source [id number] 08/21/2019 12:00:00 AM EDT [facility] Maru Quintanilla MD Patient Name: AMANDA VERASY[address] [facility] Date of : 1965 Date [facility]: [facility] [id number] Fax: [phone] EXAM: MRI KNEE LEFT WITHOUT [...] other findings as described above.Accredited by the [employer] in MR.Stacey Davey, RUPALI/Reagan [...] and its perform ance characteristics determined by [facility]. It has not been cleared or approved [...] for research purposes</content>
<content>only by the assay's roll on man. The performance</content>
<content>characteristics of this product have not been</content>
<content>established. Results should not be used as a</c ontent>
<content>diagnostic procedure without confirmation of the</content>
<content>diagnosis by another medically established diagnostic</content>
<content>product or procedure.</content>
<content> Performed at: [facility]</content>
<content>[address], [place] [id number]</content>
<content>Radio Program Director: Vonnie Lei PhD, Phone: [phone]</content>
<content> Performed at: [facility]</content>
<content>[address] [place] [id number]</content>
<content>Radio Program Director: Flaco Waite MD, Phone: [phone]</content>
<content></content> ID Date Data Source [id number] 07/23/2019 [...] Little GFR Left</content>
<content>ESRD GFR <15 on CLINICAL EDUCATION COORDINATOR</content>
<content></content> Laboratory test finding (navigational concept) 138 [...] [facility] ([facility]) Laboratory test finding (navigational concept) 0.1 10 0 .0-0.2 Normal (applies to non-numeric results) [facility] ([facility]) Laboratory test finding (navigational concept) 0.7 10 0 .0-0.8 Normal (applies to non-numeric results) [facility] ([facility]) ID Date Data Source [id number] 06/23/2019 03:14:00 PM EDT MEDENT ([facility], ) Name Value Range Interpretation Code Description Data Saige rce(s) Supporting Document(s) FVC-Pred 3.13 L MEDENT ([facility], ) PDFReport Laboratory test result MEDENT ([facility], ) FVC-%Pred-Pre 90 L MED[facility] ([facility]) FVC-Pre 2.84 L MED[facility] ([facility]) FVC-LLN 2.49 L [facility] ([facility]) Fev1-%Pred-Pre 93 L MEDENT ([facility], ) Fev1-Pre 2.30 L MEDENT ([facility], ) Fev1-Pred 2.45 L MEDENT ([facility], ) Fev6-Pred 3.03 L MED[facility] ([facility]) Fev1-LLN 1.91 L [facility] ([facility]) Fev6-%Pred-Pre 93 L MEDENT ([facility], ) Fev6-Pre 2.83 L MED[facility] ([facility], ) Lxy0cvs-Pcj 81 % [facility] ([facility]) Fev6-LLN 2.41 L MED[facility] ([facility]) Zfo7pdg-Dmqs 79 % [facility] ([facility]) Lqp1gtl-TTU 69 % [facility] ([facility]) Hcg3tky-Fdbr 97 % [facility] ([facility]) Gez5gsj-%Pred-Pre 102 % MED[facility] ([facility]) FEFMax-Pred 6.16 L/E/sec MED[facility] ([facility]) Djr2jjp-%Pred-Pre 102 % [facility] ([facility]) Efk1qsr-Smw 100 % [facility] ([facility]) FEFMax-Pre 4.55 L/E/sec MED[facility] ([facility]) FEFMax-LLN 4.58 L/E/sec [facility] ([facility]) FEFMax-%Pred-Pre 73 L/E/sec MED[facility] ([facility]) Ipa7444-Ket 2.56 L/E/sec [facility] ([facility]) Cgv5967-NKE 1.27 L/E/sec [facility] ([facility]) Xhp8582-Ayfb 2.42 L/E/sec MED[facility] ([facility]) Zkf5834-%Pred-Pre 105 L/E/sec MEDENT ([facility]) Cam1pnv5-Pyle 82 % MED[facility] ([facility]) ExpTime-Pre 6.37 sec MEDENT ([facility], ) Sab0krp3-CGN 73 % MED[facility] ([facility]) Bmy3jha5-Wmq 81 % [facility] ([facility]) Jvi4yuy4-%Pred-Pre 99 % MEDENT ([facility]) ID Date Data Source [id number] 04/08/2019 10:53:00 AM EST [facility] ([facility] Name Value Range Interpretation Code Description Data Saige rce(s) Supporting Document(s) Erythrocyte sedimentation rate by 2H Westergren method 8 mm/hr 0-3 0 [facility] ([facility] C reactive protein [Mass/volume] in Serum or Plasma by High sensitivity method < 0.30 mg/dL 0.00-0.30 [facility] ([facility] ID Date Data Source [id number] 04/08/2019 10:53:00 AM EST [facility] ([facility] [...] 36.0-66.0 [facility] [place] % 6.8 % 0.0-5.0 [facility] ([facility] [...] 0.0-0.5 [facility] [place] # 1.1 10 0.0-0.8 [facility] Baso # 0.1 10 0.0-0.2 [facility] ID Date Data Source [id number] 04/04/2019 12:44:00 PM EST [facility] [...] co mpleted Patient has never smoked MED[facility] ([facility]) Smoking 04/07/2020 12:00:00 AM EST Former Smoker completed Former Smoker eCW1 ([facility]) Smoking 03/15/2020 12:00:00 AM EST Former Smoker completed Former Smoker eCW1 ([facility]) Smoking 03/15/2020 12:00:00 AM EST Former Smoker completed Former Smoker eCW1 ([facility]) Smoking 03/15/2020 12:00:00 AM EST Former Smoker completed Former Smoker eCW1 ([facility]) Smoking 03/15/2020 12:00:00 AM EST Former Smoker completed Former Smoker eCW1 ([facility]) Smoking 03/02/2020 12:00:00 AM EST Former Smoker completed Former Smoker eCW1 ([facility]) Smoking 03/02/2020 12:00:00 AM EST Former Smoker completed Former Smoker eCW1 ([facility]) 10/22/2019 12:00:00 AM EDT Denies Smoking completed Denie s Smoking [facility] ([facility], ) Smoking 10/10/2019 12:00:00 AM EDT Former Smoker completed Former Smoker eCW1 ([facility]) Smoking 10/10/2019 12:00:00 AM EDT Former Smoker completed Former Smoker [email or web address] ([facility]) Smoking 10/10/2019 12:00:00 AM EDT Former Smoker completed Former Smoker [email or web address] ([facility]) Smoking 10/10/2019 12:00:00 AM EDT Former Smoker completed Former Smoker [email or web address] ([facility]) Smoking 08/27/2019 12:00:00 AM EDT Former Smoker completed Former Smoker [email or web address] ([facility]) Smoking 08/27/2019 12:00:00 AM EDT Former Smoker completed Former Smoker [email or web address] ([facility]) Smoking 08/27/2019 12:00:00 AM EDT Former Smoker completed Former Smoker [email or web address] ([facility]) Smoking 07/23/2019 12:00:00 AM EDT Patient is a former smoker completed Patient is a former smoker [facility] ([facility] ) Vital Signs ID Date Data Source UNK Name Value Range Interpretation Code Description Data Source(s) Body mass index (BMI) [Ratio] 24.0 kg/m2 24.0 k g/m2 MED[facility] ([facility], [facility]) Body height 64 [in_i] 64 [in_i] MEDENT ([facility], [facility]) 5'4" Body weight 140.00 [lb_av] 140.00 [lb_av] MEDEN T ([facility], [facility]) Body temperature 98.7 [degF] 98.7 [degF] MEDENT ([facility], [facility]) Oxygen saturation in Arterial blood by Pulse oximetry 97 % 97 % MEDENT ([facility], [facility]) Respiratory rate 14 /min 14 /min MED[facility] ( [facility], [facility]) Heart rate 102 /min 102 /min MED[facility] ([facility], [facility]) Diastolic blood pressure 87 mm[Hg] 87 mm[Hg] MEDENT ([facility], [facility]) Systolic blood pressure 140 mm[Hg] 140 mm[Hg] M EDENT ([facility], [facility]) Diastolic blood pressure 77 mm[Hg] 77 mm[Hg] eCW1 ([facility] [place]) Systolic blood pressure 124 mm[Hg] 124 mm[Hg] e CW1 ([facility]) Body mass index (BMI) [Ratio] 25.51 kg/m2 25.51 kg/m2 eCW1 ([facility] [place]) Body height 63 [in_i] 63 [in_i] eCW1 ([facility]) Body weight 65.32 kg 65.32 kg eCW1 ([facility]) Body weight 144 [lb_av] 144 [lb_av] eCW1 ([facility]) Body temperature 96.9 [degF] 96.9 [degF] MEDENT ([facility]) Diastolic blood pressure 79 mm[Hg] 79 mm[Hg] eCW1 ([facility] [place]) Systolic blood pressure 137 mm[Hg] 137 mm[Hg] e CW1 ([facility] [place]) Body temperature 98.4 [degF] 98.4 [degF] eCW1 ( [facility] [place]) Respiratory rate 18 /min 18 /min eCW1 ([facility]) Heart rate 94 /min 94 /min eCW1 ([facility]) Body mass index (BMI) [Ratio] 24.97 kg/m2 24.97 kg/m2 eCW1 ([facility] [place]) Body height 63 [in_i] 63 [in_i] eCW1 ([facility]) Body weight 141 [lb_av] 141 [lb_av] eCW1 ([facility]) Diastolic blood pressure 90 mm[Hg] 90 mm[Hg] eCW1 ([facility] [place]) Systolic blood pressure 170 mm[Hg] 170 mm[Hg] e CW1 ([facility] [place]) Body temperature 98 [degF] 98 [degF] eCW1 ([facility]) Respiratory rate 18 /min 18 /min eCW1 ([facility]) Heart rate 107 /min 107 /min eCW1 ([facility]) Body mass index (BMI) [Ratio] 25.51 kg/m2 25.51 kg/m2 W1 ([facility] [place]) Body height 63 [in_i] 63 [in_i] eCW1 ([facility]) Body weight 144 [lb_av] 144 [lb_av] eCW1 ([facility]) Body weight 65.772 kg 65.772 kg MEDENT ([facility], ) [place] body weight 105 [lb_av] 105 [lb_av] MEDEN T ([facility], ) Body mass index (BMI) [Ratio] 27.0 kg/m2 27.0 k g/m2 MEDENT ([facility], ) Body weight 145.00 [lb_av] 145.00 [lb_av] MEDEN T ([facility], ) Body height 61.5 [in_i] 61.5 [in_i] MEDENT ([facility], ) 5'1.50" Body temperature 97.0 [degF] 97.0 [degF] [facility] ([facility], ) Oxygen saturation in Arterial blood by Pulse oximetry 98 % 98 % [facility] ([facility]) Heart rate 107 /min 107 /min [facility] ([facility]) Diastolic blood pressure 80 mm[Hg] 80 mm[Hg] [facility] ([facility]) Systolic blood pressure 130 mm[Hg] 130 mm[Hg] [facility] ([facility]) Body mass index (BMI) [Ratio] 24.0 kg/m2 24.0 k g/m2 MEDENT ([facility]) Body weight 140.00 [lb_av] 140.00 [lb_av] MEDEN T ([facility]) Body height 64 [in_i] 64 [in_i] [facility] ([facility]) 5'4" Body temperature 96.0 [degF] 96.0 [degF] [facility] Body mass index (BMI) [Ratio] 24.9 kg/m2 24.9 k g/m2 [facility] ([facility], [facility]) Body height 64 [in_i] 64 [in_i] [facility] ([facility], [facility]) 5'4" Body weight 145.00 [lb_av] 145.00 [lb_av] MEDEN T ([facility], [facility]) Body temperature 98.9 [degF] 98.9 [degF] [facility] ([facility], [facility]) Oxygen saturation in Arterial blood by Pulse oximetry 100 % 100 % [facility] ([facility], [facility]) Respiratory rate 18 /min 18 /min [facility] ( [facility], [facility]) Heart rate 92 /min 92 /min [facility] ([facility], [facility]) Diastolic blood pressure 78 mm[Hg] 78 mm[Hg] [facility] ([facility], [facility]) Systolic blood pressure 128 mm[Hg] 128 mm[Hg] [facility] ([facility], [facility]) Body weight 65.772 kg 65.772 kg [facility] ([facility], ) [place] body weight 105 [lb_av] 105 [lb_av] MEDEN T ([facility]) Body mass index (BMI) [Ratio] 27.0 kg/m2 27.0 k g/m2 [facility] ([facility]) Body weight 145.00 [lb_av] 145.00 [lb_av] MEDEN T ([facility]) Body height 61.5 [in_i] 61.5 [in_i] [facility] ([facility]) 5'1.50" Body temperature 97.1 [degF] 97.1 [degF] [facility] ([facility]) Oxygen saturation in Arterial blood by Pulse oximetry 98 % 98 % [facility] ([facility]) Heart rate 80 /min 80 /min [facility] ([facility]) Diastolic blood pressure 80 mm[Hg] 80 mm[Hg] [facility] ([facility]) Systolic blood pressure 130 mm[Hg] 130 mm[Hg] M EDENT ([facility]) Body mass index (BMI) [Ratio] 24.5 kg/m2 24.5 k g/m2 [facility] ([facility]) Body weight 143.00 [lb_av] 143.00 [lb_av] MEDEN T ([facility]) Body height 64 [in_i] 64 [in_i] MEDENT ([facility]) 5'4" Body temperature 97.0 [degF] 97.0 [degF] [facility] ([facility]) Diastolic blood pressure 79 mm[Hg] 79 mm[Hg] eCW1 ([facility]) Systolic blood pressure 126 mm[Hg] 126 mm[Hg] e CW1 ([facility]) Body temperature 98 [degF] 98 [degF] eCW1 ([facility]) Respiratory rate 18 /min 18 /min eCW1 ([facility]) Heart rate 78 /min 78 /min eCW1 ([facility]) Body mass index (BMI) [Ratio] 26.04 kg/m2 26.04 kg/m2 eCW1 ([facility]) Body height 63 [in_i] 63 [in_i] eCW1 ([facility]) Body weight 147 [lb_av] 147 [lb_av] eCW1 ([facility]) Diastolic blood pressure 78 mm[Hg] 78 mm[Hg] eCW1 ([facility]) Systolic blood pressure 124 mm[Hg] 124 mm[Hg] e CW1 ([facility]) Body mass index (BMI) [Ratio] 26.71 kg/m2 26.71 kg/m2 eCW1 ([facility]) Body height 63 [in_i] 63 [in_i] eCW1 ([facility]) Body weight 150.8 [lb_av] 150.8 [lb_av] eCW1 ([facility]) Body height 61 [in_i] 61 [in_i] MEDENT [...] MEDENT ([facility] 5'0" Body weight 153.50 [lb_av] 153.50 [lb_av] MEDEN T ([facility]) Oxygen saturation in Arterial blood by Pulse oximetry 98 % 98 % [facility] ([facility], ) Heart rate 94 /min 94 /min [facility] ([facility], ) Diastolic blood pressure 84 mm[Hg] 84 mm[Hg] [facility] ([facility]) Systolic blood pressure 118 mm[Hg] 118 mm[Hg] [facility], ) Body weight 69.854 kg 69.854 kg [facility] ([facility]) Body mass index (BMI) [Ratio] 28.6 kg/m2 28.6 k g/m2 [facility] ([facility], ) Body weight 154.00 [lb_av] 154.00 [lb_av] MEDEN T ([facility], ) Body height 61.5 [in_i] 61.5 [in_i] [facility] ([facility], ) 5'1.50" Body temperature 97.2 [degF] 97.2 [degF] [facility] ([facility], ) Diastolic blood pressure 84 mm[Hg] 84 mm[Hg] eCW1 ([facility] [place]) Systolic blood pressure 138 mm[Hg] 138 mm[Hg] e CW1 ([facility]) Body temperature 98.4 [degF] 98.4 [degF] eCW1 ( [facility]) Respiratory rate 18 /min 18 /min eCW1 ([facility]) Heart rate 95 /min 95 /min eCW1 ([facility]) Body mass index (BMI) [Ratio] 26.57 kg/m2 26.57 kg/m2 eCW1 ([facility]) Body height 63 [in_us] 63 [in_us] eCW1 ([facility]) Body weight Measured 150 [lb_av] 150 [lb_av] eC W1 ([facility] [place]) Diastolic blood pressure 78 mm[Hg] 78 mm[Hg] eCW1 ([facility] [place]) Systolic blood pressure 138 mm[Hg] 138 mm[Hg] e CW1 ([facility]) Body temperature 97.8 [degF] 97.8 [degF] eCW1 ( [facility] [place]) Respiratory rate 19 /min 19 /min eCW1 ([facility]) Heart rate 96 /min 96 /min eCW1 ([facility]) Body mass index (BMI) [Ratio] 27.30 kg/m2 27.30 kg/m2 eCW1 ([facility]) Body height 63 [in_us] 63 [in_us] eCW1 ([facility]) Body weight Measured 154.12 [lb_av] 154.12 [lb_ av] eCW1 ([facility] [place]) Body weight 70.308 kg 70.308 kg MEDENT ([facility], ) Body mass index (BMI) [Ratio] 28.8 kg/m2 28.8 k g/m2 MEDENT ([facility], ) Body weight 155.00 [lb_av] 155.00 [lb_av] MEDEN T ([facility], ) Body height 61.5 [in_i] 61.5 [in_i] MEDENT ([facility], ) 5'1.50" Body weight 69.854 kg 69.854 kg MEDENT ([facility]) Body mass index (BMI) [Ratio] 26.4 kg/m2 26.4 k g/m2 MEDENT ([facility]) Heart rate 101 /min 101 /min MED[facility] ([facility]) Diastolic blood pressure 74 mm[Hg] 74 mm[Hg] MEDENT ([facility]) Systolic blood pressure 126 mm[Hg] 126 mm[Hg] M EDENT ([facility]) Body weight 154.00 [lb_av] 154.00 [lb_av] MEDEN T ([facility]) Body height 64 [in_i] 64 [in_i] [facility]ENT ([facility] 5'4" Body mass index (BMI) [Ratio] 27.21 kg/m2 27.21 kg/m2 eCW1 ([facility]) Body height 63 [in_us] 63 [in_us] eCW1 ([facility]) Body weight Measured 153.6 [lb_av] 153.6 [lb_av ] eCW1 ([facility]) Body weight 70.308 kg 70.308 kg MEDENT ([facility], ) Body mass index (BMI) [Ratio] 28.8 kg/m2 28.8 k g/m2 MEDENT ([facility]) Body weight 155.00 [lb_av] 155.00 [lb_av] MEDEN T ([facility]) Body height 61.5 [in_i] 61.5 [in_i] MEDENT ([facility]) 5'1.50" Diastolic blood pressure 80 mm[Hg] 80 mm[Hg] eCW1 ([facility]) Systolic blood pressure 140 mm[Hg] 140 mm[Hg] e CW1 ([facility]) Body temperature 98.7 [degF] 98.7 [degF] eCW1 ( [facility]) Respiratory rate 18 /min 18 /min eCW1 ([facility]) Heart rate 88 /min 88 /min eCW1 ([facility]) Body mass index (BMI) [Ratio] 28.34 kg/m2 28.34 kg/m2 W1 ([facility]) Body height 63 [in_us] 63 [in_us] eCW1 ([facility]) Body weight Measured 160 [lb_av] 160 [lb_av] eC W1 ([facility]) Body mass index (BMI) [Ratio] 28.6 kg/m2 [...] by Oximetry 98 % 98 % eCW1 ([facility]) Respiratory rate 18 /min 18 /min eCW1 ([facility]) Heart rate 90 /min 90 /min eCW1 ([facility]) Body temperature 97.9 [degF] 97.9 [degF] eCW1 ( [facility]) Body mass index (BMI) [Ratio] 26.34 kg/m2 26.34 kg/m2 eCW1 ([facility]) Body height 64 [in_us] 64 [in_us] eCW1 ([facility]) Diastolic blood pressure 77 mm[Hg] 77 mm[Hg] eCW1 ([facility]) Systolic blood pressure 132 mm[Hg] 132 mm[Hg] e CW1 ([facility]) Body temperature 99.3 [degF] 99.3 [degF] eCW1 ( [facility]) Respiratory rate 18 /min 18 /min eCW1 ([facility]) Heart rate 123 /min 123 /min eCW1 ([facility]) Body mass index (BMI) [Ratio] 27.10 kg/m2 27.10 kg/m2 eCW1 ([facility]) Body height 63 [in_us] 63 [in_us] eCW1 ([facility]) Body weight Measured 153 [lb_av] 153 [lb_av] eC W1 ([facility]) Diastolic blood pressure 74 mm[Hg] 74 mm[Hg] eCW1 ([facility]) Systolic blood pressure 125 mm[Hg] 125 mm[Hg] e CW1 ([facility]) Body temperature 98.7 [degF] 98.7 [degF] eCW1 ( [facility]) Respiratory rate 18 /min 18 /min eCW1 ([facility]) Heart rate 98 /min 98 /min eCW1 ([facility]) Body mass index (BMI) [Ratio] 26.92 kg/m2 26.92 kg/m2 eCW1 ([facility]) Body height 63 [in_us] 63 [in_us] eCW1 ([facility]) Body weight Measured 152 [lb_av] 152 [lb_av] eC W1 ([facility]) Patient Treatment Plan of Care Planned Activity Planned Date Details Description Data Source (s) Fluconazole 150 MG Oral Tablet [Diflucan] 03/15/2020 12:00:00 AM ES T eCW1 ([facility]) Ciprofloxacin 500 MG Oral Tablet [Cipro] 03/15/2020 12:00:00 AM EST eCW1 ([facility]) Fluconazole 150 MG Oral Tablet [Diflucan] 03/15/2020 12:00:00 AM ES T eCW1 ([facility]) Ciprofloxacin 500 MG Oral Tablet [Cipro] 03/15/2020 12:00:00 AM EST eCW1 ([facility]) Fluconazole 150 MG Oral Tablet [Diflucan] 03/15/2020 12:00:00 AM ES T eCW1 ([facility]) Ciprofloxacin 500 MG Oral Tablet [Cipro] 03/15/2020 12:00:00 AM EST eCW1 ([facility]) Fluconazole 150 MG Oral Tablet [Diflucan] 03/15/2020 12:00:00 AM ES T eCW1 ([facility]) Ciprofloxacin 500 MG Oral Tablet [Cipro] 03/15/2020 12:00:00 AM EST eCW1 ([facility]) Ciprofloxacin 250 MG Oral Tablet 03/05/2020 12:00:00 AM EST eCW1 ([facility]) Fluconazole 150 MG Oral Tablet 03/05/2020 12:00:00 AM EST eCW1 ([facility]) Ciprofloxacin 250 MG Oral Tablet 03/05/2020 12:00:00 AM EST eCW1 ([facility]) Fluconazole 150 MG Oral Tablet 03/05/2020 12:00:00 AM EST eCW1 ([facility]) One Touch Delica 33 gauge 09/19/2019 12:00:00 AM EDT eCW1 ([facility]) One Touch Delica 33 gauge 09/19/2019 12:00:00 AM EDT eCW1 ([facility]) One Touch Delica 33 gauge 09/19/2019 12:00:00 AM EDT eCW1 ([facility]) One Touch Delica 33 gauge 09/19/2019 12:00:00 AM EDT eCW1 ([facility]) One Touch Delica 33 gauge 09/19/2019 12:00:00 AM EDT eCW1 ([facility]) One Touch Delica 33 gauge 09/19/2019 12:00:00 AM EDT eCW1 ([facility]) OneTouch Verio w/Device 09/18/2019 12:00:00 AM EDT eCW1 ([facility]) OneTouch Verio - 09/18/2019 12:00:00 AM EDT eCW1 ([facility]) OneTouch Verio w/Device 09/18/2019 12:00:00 AM EDT eCW1 ([facility]) OneTouch Verio - 09/18/2019 12:00:00 AM EDT eCW1 ([facility]) OneTouch Verio - 09/18/2019 12:00:00 AM EDT eCW1 ([facility]) OneTouch Verio w/Device 09/18/2019 12:00:00 AM EDT eCW1 ([facility]) OneTouch Verio - 09/18/2019 12:00:00 AM EDT eCW1 ([facility]) OneTouch Verio w/Device 09/18/2019 12:00:00 AM EDT eCW1 ([facility]) OneTouch Verio - 09/18/2019 12:00:00 AM EDT eCW1 ([facility]) OneTouch Verio w/Device 09/18/2019 12:00:00 AM EDT eCW1 ([facility]) OneTouch Verio w/Device 09/18/2019 12:00:00 AM EDT eCW1 ([facility]) OneTouch Verio - 09/18/2019 12:00:00 AM EDT eCW1 ([facility]) Estrogens, Conjugated (MCC) 0.625 MG/ML Vaginal Cream [Premarin] 08/27/2019 12:00:00 AM EDT eCW1 ([facility]) Estrogens, Conjugated (MCC) 0.625 MG/ML Vaginal Cream [Premarin] 08/27/2019 12:00:00 AM EDT eCW1 ([facility]) Estrogens, Conjugated (MCC) 0.625 MG/ML Vaginal Cream [Premarin] 08/27/2019 12:00:00 AM EDT eCW1 ([facility]) Estrogens, Conjugated (MCC) 0.625 MG/ML Vaginal Cream [Premarin] 08/27/2019 12:00:00 AM EDT eCW1 ([facility]) Estrogens, Conjugated (MCC) 0.625 MG/ML Vaginal Cream [Premarin] 08/27/2019 12:00:00 AM EDT eCW1 ([facility]) Estrogens, Conjugated (MCC) 0.625 MG/ML Vaginal Cream [Premarin] 08/27/2019 12:00:00 AM EDT eCW1 ([facility]) Estrogens, Conjugated (MCC) 0.625 MG/ML Vaginal Cream [Premarin] 08/27/2019 12:00:00 AM EDT eCW1 ([facility]) Ketorolac Tromethamine 4 MG/ML Ophthalmic Solution 07/18/2019 12 :00:00 AM EDT eCW1 ([facility]) Metformin hydrochloride 500 MG Oral Tablet 04/30/2019 12:00:[address] eCW1 ([facility]) Metformin hydrochloride 500 MG Oral Tablet 04/30/2019 12:00:[address] eCW1 ([facility]) Metformin hydrochloride 500 MG Oral Tablet 04/30/2019 12:00:[address] eCW1 ([facility]) benzonatate 200 MG Oral Capsule 04/30/2019 12:00:00 AM EST eCW1 ([facility]) Metformin hydrochloride 500 MG Oral Tablet 04/30/2019 12:00:[address] eCW1 ([facility]) benzonatate 200 MG Oral Capsule 04/30/2019 12:00:00 AM EST eCW1 ([facility]) Metformin hydrochloride 500 MG Oral Tablet 04/30/2019 12:00:[address] eCW1 ([facility]) benzonatate 200 MG Oral Capsule 04/30/2019 12:00:00 AM EST eCW1 ([facility]) Metformin hydrochloride 500 MG Oral Tablet 04/30/2019 12:00:[address] eCW1 ([facility]) Metformin hydrochloride 500 MG Oral Tablet 04/30/2019 12:00:[address] eCW1 ([facility]) benzonatate 200 MG Oral Capsule 04/30/2019 12:00:00 AM EST eCW1 ([facility]) Metformin hydrochloride 500 MG Oral Tablet 04/30/2019 12:00:[address] eCW1 ([facility]) Metformin hydrochloride 500 MG Oral Tablet 04/30/2019 12:00:[address] eCW1 ([facility]) benzonatate 200 MG Oral Capsule 04/30/2019 12:00:00 AM EST eCW1 ([facility]) Metformin hydrochloride 500 MG Oral Tablet 04/30/2019 12:00:[address] eCW1 ([facility]) Metformin hydrochloride 500 MG Oral Tablet 04/30/2019 12:00:[address] eCW1 ([facility]) benzonatate 200 MG Oral Capsule 04/30/2019 12:00:00 AM EST eCW1 ([facility]) benzonatate 200 MG Oral Capsule 04/04/2019 12:00:00 AM EST eCW1 ([facility]) Prednisone 20 MG Oral Tablet 04/04/2019 12:00:00 AM EST eCW1 ([facility]) Azithromycin 250 MG Oral Tablet 03/24/2019 12:00:00 AM EST eCW1 ([facility]) PredniSONE 10 MG 03/20/2019 12:00:00 AM EST eCW1 ([facility]) Levofloxacin 750 MG Oral Tablet [Levaquin] 03/20/2019 12:00:[address] eCW1 ([facility])
[2020-05-05] MEDS ORDERED: PILL CUTTER 1 EACH XX PRN (19:00)
[2020-05-05] MEDS ORDERED: traMADol 50 MG TAB PO PRN (19:00)
[2020-05-05] MEDS ORDERED: LORazepam 2 MG/ML VIAL IV PRN (19:00)
--- NOTE | 2020-05-05 19:02 | HPEPDOC ---
[facility] Medical History & Physical Date of Admission May 05, 2020 Date of Service: May 05, 2020 History and Physical Chief complaint: Who presented to the emergency room with complaints of chest pain for the last 3 days History of present illness: Patient is a 55-year-old female who presented to the emergency room with complaints of chest pain for the last 3 days. Patient has reported that the chest pains occurring in the middle of her chest reported as 8/10, constant aching nature without any alleviating or aggravating factors. Patient reports that she has had anxiety attacks in the past is different. Patient denies any nausea or vomiting. However, has reported difficulty with swallowing over the last 3 weeks. She was scheduled to see Dr. Kirkpatrick tomorrow for an initial evaluation for likely EGD. Patient reports a chronic cough with thick white sputum. Patient reports some palpitations. Denies any significant shortness of breath. Has not experience any fevers or chills. Patient denies any abdominal pain. Reports constipation, however, has had a rece nt bowel movement this morning. Denies any urinary discomfort. Reports her appetite is relatively normal. Denies any changes in her weight. Past Medical History: NIDDM2 Sjogrens Asthma GERD Recent diagnosis of bronchitis (on Prednisone and completed Doxycycline) Past Surgical History: EGD completed 3 years ago that revealed hiatal hernia and gastritis Bronchoscopy Hysterectomy Allergies: See below Medications: See below Family History: - No history of malignancies Social History: - Denies the use of alcohol, tobacco or illicit drugs - Reports that she was exposed to her son who was COVID19 positive on 04/23 - Lives with Review of Systems: 10 point review of systems complete, all negative otherwise stated in HPI Physical exam: - Vitals: BP [140/73], HR [102], RR [18], Sat [99%RA], Temp [98.9F] - General: Lying in bed, No acute distress, Speaking in full sentences, AAOx3 - HEENT: NC, AT, PERRLA - CVS: Tachycardic, +S1S2, Tenderness of palpation of chest wall - Lungs: Fair air entry bilaterally, No appreciable wheezing / rales / rhonchi - Abdomen: Soft, Non-distended, Non-tender - Extremities: No lower extremity edema, No calf tenderness - Neuro: No focal motor or sensory deficit - Skin: No visible rashes Labs: See below Imaging: CXR 05/04: Focal atelectasis or infiltrate lateral left lung base. CTA chest 05/05: No CT evidence of pulmonary embolus. No active cardiopulmonary disease. Thoracic scoliosis and degenerative spondylosis changes. EKG: See below Assessment and Plan: Chest pain / Atypical - possibly 2/2 esophageal etiology, less likely 2/2 cardiac / pulmonary etiology, possibly 2/2 MSK etiology - Resented to the ER with complaints of persistent chest pain occurring for the last 3 days - She has reported difficulty with swallowing solids and liquids over the last 3 weeks - Tenderness noted on palpation - Troponin negative - CTA noted - EKG reviewed - Will check troponin trend / Telemetry monitoring - Consulted gastroenterology for likely EGD tomorrow; will remain NPO - Will start Protonix - Will provide pain control with Tylenol and Tramadol PRN Lactic acidosis; possibly 2/2 SOB - Patient was reported to have wheezing upon arrival - Will start IV fluids Asthma - Recent diagnosis of bronchitis (on Prednisone and completed Doxycycline) - Upon examination patient did not have any wheezing on exam - s/p Solumedrol - Will continue with prednisone - c/w inhaled therapy as ordered Anxiety - Will provide low dose of Ativan PRN NIDDM2 - Will start ISS Sjogrens - c/w Hydroxychloroquine Gastrointestinal prophylaxis - Will start Protonix DVT prophylaxis - Will start Heparin Vital Signs Vital Signs Date Time Temp Pulse Resp B/P (MAP) Pulse Ox O2 Delivery O2 Flow Rate FiO2 05/05/20 18:31 102 18 151/70 (97) 99 Room Air 05/05/20 14:56 98.9 Laboratory Data Labs 24H Laboratory Tests 2 05/05/20 14:45: Immature Granulocyte % (Auto) 4.3H, Neutrophils (%) (Auto) 79.8H, Lymphocytes (%) (Auto) 11.8L, Monocytes (%) (Auto) 3.4, Eosinophils (%) (Auto) 0.0, Basophils (%) (Auto) 0.7, Neutrophils # (Auto) 9.5H, Lymphocytes # (Auto) 1.4L, Monocytes # (Auto) 0.4, Eosinophils # (Auto) 0.0, Basophils # (Auto) 0.1, Nucleated Red Blood Cells % (auto) 0.0, Prothrombin Time 11.8, Prothromb Time International Ratio 0.85, Activated Partial Thromboplast Time 29.6, D-Dimer, Quantitative 300.93, Anion Gap 14, Glomerular Filtration Rate > 60.0, Lactic Acid Level 5.4*H, Calcium Level 10.3H, Ferritin 170, Total Bilirubin 0.4, Direct Bilirubin < 0.1, Aspartate Amino Transf (AST/SGOT) 8, Alanine Aminotransferase (ALT/SGPT) 35, Alkaline Phosphatase 74, Total Creatine Kinase 101, Creatine Kinase MB 2.3, Creatine Kinase MB Relative Index 2.28, Troponin I < 0.02, Total Protein 7.8, Albumin 4.5, Albumin/Globulin Ratio 1.4, Lipase 91 05/05/20 16:28: Urine Color STRAW, Urine Appearance CLEAR, Urine pH 8.0, Urine Specific [place] 1.004, Urine Protein NEGATIVE, Urine Glucose (UA) NEGATIVE, Urine Ketones NEGATIVE, Urine Blood NEGATIVE, Urine Nitrite NEGATIVE, Urine Bilirubin NEGATIVE, Urine Urobilinogen 0.2, Urine Leukocyte Esterase NEGATIVE, Urine WBC (Auto) 1, Urine RBC (Auto) 1, Urine Hyaline Casts (Auto) 0, Urine Bacteria (Auto) NEGATIVE, Urine Squamous Epithelial Cells 0, Urine Mucus (Auto) SMALL, Urine Sperm (Auto) CBC/BMP Laboratory Tests 05/05/20 14:45 Microbiology Microbiology 05/05/20 Blood Culture, Received Pending 05/05/20 Respiratory Virus Panel (PCR) (CRISTHIAN) - Final, Complete Coronavirus Hku1 05/05/20 Blood Culture, Received Pending Home Medications Scheduled Conjugated Estrogens (Premarin) 30 Gm Cream.appl, 0.5 GRAM PV 2XW MONDAYS/THURSDAYS AT BEDTIME Cyclosporine (Restasis) 0.05% Droperette, 1 DROP OU BID Fluticasone Propionate (Flovent Hfa) 220 Mcg/Act Aer.w.adap, 2 PUFF INH BID Fluticasone Propionate (Flonase Allergy Relief) 9.9 Ml [place].susp, 2 SPRAY NARES QHS Hydroxychloroquine Sulfate (Hydroxychloroquine Sulfate) 200 Mg Tablet, 200 MG PO BID Metformin HCl (Metformin HCl) 500 Mg Tablet, 500 MG PO BIDWM Montelukast Sodium (Montelukast Sodium) 10 Mg Tablet, 10 MG PO DAILY Pantoprazole Sodium (Pantoprazole Sodium) 40 Mg Tablet.dr, 40 MG PO DAILY Scheduled PRN Albuterol Sulfate (Albuterol Sulfate) 2.5 Mg/0.5 Ml Vial.neb, 2.5 MG INH QID PRN for SOB/WHEEZING Hydrocortisone (Proctozone-Hc) 30 Gm Crm.pe.suzan, 1 APLCT [place] BID PRN for RECTAL BLEEDING Levalbuterol Tartrate (Levalbuterol Tartrate Hfa) 15 Gm Hfa.aer.ad, 2 PUFFS INH QID PRN for SHORTNESS OF BREATH Allergies Coded Allergies: Penicillins (Verified Allergy, Intermediate, HIVES, 05/05/20) Sulfa (Sulfonamide Antibiotics) (Verified Allergy, Intermediate, HIVES, 05/05/20) fluticasone (Unverified Allergy, Unknown, 05/05/20) FALGUNI PIEDRA MD May 05, 2020 19:01
[2020-05-05] MEDS: NS 1,000 ML IV SCH (19:40)
--- NOTE | 2020-05-05 19:56 | ECGEPIP ---
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
[2020-05-05] MEDS: LEVALBUTEROL 1.25 MG/0.5 ML CONCENTRATE NEB INH SCH ×2 (20:00→23:33)
[2020-05-05] MEDS: FLUTICASONE HFA 220 MCG 12 GM INHALER (FLOVENT) INH SCH (20:00)
[2020-05-05 20:12] LABS: CK-MB VALUE MASS 1.6 NG/ML (<3.6); CPK CREATINE PHOSPHOKINASE 82 U/L (26-192); MB/CK RELATIVE INDEX 1.95 (< OR =4); TROPONIN I < 0.02 NG/ML (< 0.10)
[2020-05-05 20:30] VITALS: BP 138/76
[2020-05-05] MEDS ORDERED: SODIUM CHLORIDE 0.9% 1000ML IV ONE (20:30)
[2020-05-05] MEDS: HumaLOG INSULIN (NovoLOG) PER UNIT SC SCH (21:00)
[2020-05-05] MEDS: FLUTICASONE PROP 0.05% NASAL SPRAY 16 GM (FLONASE) NARES SCH (21:00)
[2020-05-05] MEDS: HEPARIN SOD (PORCINE) 5000UNITS/ML 1ML VIAL/SYRINGE SC SCH (21:17)
[2020-05-05] MEDS ORDERED: SODIUM CHLORIDE NASAL 0.65% SPRAY BTL (OCEAN) PRN (21:30)
[2020-05-05] MEDS ORDERED: MAGIC MOUTHWASH SUSPENSION BTL SSP PRN (21:30)
[2020-05-05] MEDS: HYDROXYCHLOROQUINE 200 MG TAB PO SCH (22:16)
[2020-05-05] MEDS ORDERED: MAALOX 30 ML SUSP *UDC PO ONE (22:30)
[2020-05-06] VITALS (8 sets, daily range): BP systolic 115–143; BP diastolic 56–84
[2020-05-06] MEDS: UNRESOLVED CLARIFICATION ENTRY XX SCH (00:01)
[2020-05-06] MEDS: NS 1,000 ML IV SCH ×2 (02:16→11:26)
[2020-05-06 04:51] LABS: BASO # 0.1 10^3/uL (0.0-0.2); BASO % 0.4 % (0.0-1.0); HEMATOCRIT 38.7 % (36.0-47.0); HEMOGLOBIN 12.1 g/dl (12.0-15.5); LYMPH # 1.2 10^3/uL (1.5-5.0); LYMPH % 7.4 % (24.0-44.0); MEAN CORPUSCULAR HEMOGLOBIN 28.6 pg (27.0-33.0); MEAN CORPUSCULAR HGB CONC 31.3 g/dl (32.0-36.5); MEAN CORPUSCULAR VOLUME 91.5 fl (80.0-96.0); MONO # 0.8 10^3/uL (0.0-0.8); MONO % 4.9 % (0.0-5.0); NEUTROPHILS # 14.2 10^3/uL (1.5-8.5); PLATELET COUNT, AUTOMATED 309 10^3/uL (150-450); RED BLOOD COUNT 4.23 10^6/uL (4.00-5.40); WHITE BLOOD COUNT 16.5 10^3/uL (4.0-10.0)
[2020-05-06] MEDS: LEVALBUTEROL 1.25 MG/0.5 ML CONCENTRATE NEB INH SCH ×5 (04:52→20:35)
[2020-05-06 05:17] LABS: BLOOD UREA NITROGEN 9 MG/DL (7-18); CALCIUM LEVEL 8.1 MG/DL (8.5-10.1); CARBON DIOXIDE LEVEL 27 MEQ/L (21-32); CHLORIDE LEVEL 106 MEQ/L (98-107); CK-MB VALUE MASS 1.3 NG/ML (<3.6); CPK CREATINE PHOSPHOKINASE 72 U/L (26-192); CREATININE FOR GFR 0.73 MG/DL (0.55-1.30); GLOMERULAR FILTRATION RATE > 60.0 (>51); GLUCOSE, FASTING 148 MG/DL (70-100); MAGNESIUM LEVEL 2.7 MG/DL (1.8-2.4); MB/CK RELATIVE INDEX 1.81 (< OR =4); POTASSIUM SERUM 4.3 MEQ/L (3.5-5.1); SODIUM LEVEL 143 MEQ/L (136-145); TROPONIN I < 0.02 NG/ML (< 0.10)
[2020-05-06] MEDS ORDERED: NS 500 ML IV ONE (05:45)
[2020-05-06] MEDS: HEPARIN SOD (PORCINE) 5000UNITS/ML 1ML VIAL/SYRINGE SC SCH ×3 (06:34→21:18)
[2020-05-06] MEDS ORDERED: KETOROLAC 30 MG/ML 1ML VIAL IV ONE ×2 (06:45)
[2020-05-06] MEDS: predniSONE 20 MG TAB PO SCH (08:42)
[2020-05-06] MEDS: MONTELUKAST 10 MG TAB PO SCH (08:42)
[2020-05-06] MEDS: HYDROXYCHLOROQUINE 200 MG TAB PO SCH ×2 (08:42→21:19)
[2020-05-06] MEDS: PANTOPRAZOLE 40MG VIAL (C9113 PER 1) IV SCH (08:43)
[2020-05-06] MEDS: HumaLOG INSULIN (NovoLOG) PER UNIT SC SCH ×4 (08:43→21:00)
--- NOTE | 2020-05-06 13:20 | IPNPDOC ---
Text Note Date of Service The patient was seen on 05/06/20. NOTE Subjective: Patient is a 55-year-old female who presented to the emergency room with complaints of chest pain for the last 3 days. Patient has reported that the chest pains occurring in the middle of her chest reported as 8/10, constant aching nature without any alleviating or aggravating factors. Patient reports that she has had anxiety attacks in the past is different. Patient denies any nausea or vomiting. However, has reported difficulty with swallowing over the last 3 weeks. She was scheduled to see Dr. Kirkpatrick on 05/06 for an initial evaluation for likely EGD. Patient was admitted to the hospitalist service for further evaluation and treatment. Patient was seen and examined at the bedside. Patient denies any shortness of breath or change in her cough still reports some substernal chest pain. Denies any nausea, vomiting, abdominal pain or diarrhea. Has not experience any urinary discomfort. She is scheduled to receive an EGD today. Objective: Vitals (See below) General: Lying in bed, appears comfortable, AAOx3 HEENT: NC, AT CVS: +S1S2 Lungs: Fair air entry b/l, again, auscultation is free of any rhonchi, crackles or wheezing Abdomen: Soft, nondistended and nontender Extremities: LE are without edema, - Calf tenderness Imaging: CXR 05/04: Focal atelectasis or infiltrate lateral left lung base. CTA chest 05/05: No CT evidence of pulmonary embolus. No active cardiopulmonary disease. Thoracic scoliosis and degenerative spondylosis changes. Assessment and plan: Chest pain / Atypical - possibly 2/2 esophageal etiology or musculoskeletal, less likely 2/2 cardiac / pulmonary etiology - Resented to the ER with complaints of persistent chest pain occurring for the last 3 days - Reported difficulty with swallowing solids and liquids over the last 3 weeks - Score reveals chest wall tenderness - Troponin x3 negative - CTA noted - EKG reviewed - GI on consultation; planned for EGD today - c/w Protonix - c/w Toradol / Tylenol for pain control Lactic acidosis - c/w IV fluids Asthma - Recent diagnosis of bronchitis (on Prednisone as an outpatient and completed Doxycycline) - No evidence of exacerbation - s/p Solumedrol - c/w prednisone - c/w inhaled therapy as ordered Anxiety - Will DC Ativan PRN NIDDM2 - c/w ISS Sjogrens - c/w Hydroxychloroquine Gastrointestinal prophylaxis - c/w Protonix DVT prophylaxis - c/w Heparin VS,Fishbone, I+O VS, Fishbone, I+O Laboratory Tests 05/05/20 14:45 05/06/20 04:24 Vital Signs Date Time Temp Pulse Resp B/P (MAP) Pulse Ox O2 Delivery O2 Flow Rate FiO2 05/06/20 11:18 98.3 100 18 130/64 (86) 97 Room Air I&O- Last 24 Hours up to 6 AM 05/06/20 06:00 Intake Total 1780 ml Output Total 600 ml Balance 1180 ml FALGUNI PIEDRA MD May 06, 2020 13:20
[2020-05-06] MEDS ORDERED: propofoL 200 MG/20 ML VIAL As Ordered ONE (13:35)
[2020-05-06] MEDS ORDERED: LIDOCAINE 2% 100MG/5ML SDV (FOR ANES.) As Ordered ONE (13:35)
--- NOTE | 2020-05-06 14:30 | CR.PDOC ---
General Date of Consultation: May 06, 2020 Referring Provider: FALGUNI CARRANZA MD Attending Physician: DAVID CHAMBERLAIN MD Consultation Referring physician/ hospitalist: Dr. Carranza Reason for consult: Dysphagia HPI: 55 year old female with PMHx of diabetes mellitus, Sjogren's syndrome, asthma, GERD, and hiatal hernia, presented to the ED with three day history of chest pressure. She states this came on suddenly three days ago and has been a constant pressure just behind her sternum. She denies having any prior episodes of pain like this. The pain does not radiate to the neck, arms, or epigastrium. Patient states that along with the pain she has felt her heart racing and beating hard in her chest. She denies history of palpitations prior to this. She also reports 6 months of dysphagia which has been worse over the past 3 weeks. She describes this as feeling as if food is getting stuck just past her throat and won't go down all the way. Patient notes the dysphagia initially bothered her only with solid food and now occurs with liquids as well. She states the dysphagia is worse with dry foods like crackers and better with wet foods like applesauce. She states she had dysphagia in the past about 3 years ago and she had seen Dr. Kirkpatrick for this. Patient states at that time her dysphagia only occurred with solid, dry foods. Patient had an EGD at that time which showed a hiatal hernia. Patient also notes she has been on PPI since then and her symptoms were well controlled until 6 months ago. She did have an appointment scheduled to see Dr. Kirkpatrick and discuss her worsening symptoms. Patient also notes a history of constipation with rectal bleeding and internal hemorrhoids seen on colonoscopy. She states this has been stable and is normal for her. She uses rectal hydrocortisone cream as needed. She does note a few episodes of dark stools recently, which is different than the normal color of her stool. Pertinent negative GI symptoms: Patient denies nausea, vomiting, diarrhea, abdominal pain, loss of appetite, early satiety, unintentional weight loss, hematemesis. Review of Systems: GI: as stated above CVS: Reports chest pain and palpitations per HPI. No leg swelling. RS: Positive for cough, wheezing. No shortness of breath. REMITTANCE CLERK: No loss of consciousness. No focal motor or sensory loss. Hematology: No easy bruising. No gum bleeding. Musculoskeletal: No joint pain, ambulating well. : No hematuria. No burning sensation of the urine. ENT: Positive for dysphagia. No ear discharge/pain. Eyes: No photophobia. Skin: No rash Home medications: reviewed. No anticoagulants. No antiplatelets. Medical h/o: As above. Surgical h/o: Bilateral tubal ligation. Hysterectomy. Social h/o: Denies alcohol, smoking, IVDA/other illicit substances Family h/o of GI cancers - None Prior Endoscopies: Last EGD and colonoscopy [address] Kirkpatrick showed hiatal hernia and internal hemorrhoids. Prior GI evaluations: Follows with Dr. Kirkpatrick for hemorrhoids, GERD, hiatal hernia. Exam: Vitals: reviewed General: Alert and oriented x 3, not in acute distress HEENT: No pallor, no icterus. Normal oropharynx, No cervical lymphadenopathy. Chest: symmetric with bilateral air entry, clear to auscultation. CVS: S1 and S2 heard, normal, no murmurs. Abdomen: non-distended, soft, non-tender, no rigidity or guarding, no palpable masses, normal bowel sounds auscultated. Rectal exam: Deferred at this time. Extremities: Pulses palpable, no pedal edema. REMITTANCE CLERK: No focal motor or sensory deficits. Moves all extremities Skin: No rash. Labs: reviewed. Imaging: reviewed. Impression: -- Dysphagia and atypical chest pain -- needs further evaluation. DDx-- Esophageal candidiasis, vs severe esophagitis vs large hiatal hernia vs esopha geal dysmotility. Recommendations: -- NPO for now. -- Chest pain work up to rule out other causes as per primary team. -- Patient symptom of chest pain is atypical of GI cause but in view of associated Dysphagia, will proceed with EGD for further evaluation. -- Will schedule for EGD. Patient is educated about the procedure, indication, risks, benefits and alternatives. All questions answered. -- Follow up operative note for post procedure recommendations. Plan of care discussed with patient and primary team. Patient verbalized understanding and agreed with the plan. Vital Signs/I&O Vital Signs Date Time Temp Pulse Resp B/P (MAP) Pulse Ox O2 Delivery O2 Flow Rate FiO2 05/06/20 11:18 98.3 100 18 130/64 (86) 97 Room Air I&O- Last 24 Hours up to 6 AM 05/06/20 05:59 Intake Total 1780 ml Output Total 600 ml Balance 1180 ml Laboratory Data Labs 24H Laboratory Tests 2 05/05/20 14:45: Immature Granulocyte % (Auto) 4.3H, Neutrophils (%) (Auto) 79.8H, Lymphocytes (%) (Auto) 11.8L, Monocytes (%) (Auto) 3.4, Eosinophils (%) (Auto) 0.0, Basophils (%) (Auto) 0.7, Neutrophils # (Auto) 9.5H, Lymphocytes # (Auto) 1.4L, Monocytes # (Auto) 0.4, Eosinophils # (Auto) 0.0, Basophils # (Auto) 0.1, Nucleated Red Blood Cells % (auto) 0.0, Prothrombin Time 11.8, Prothromb Time International Ratio 0.85, Activated Partial Thromboplast Time 29.6, D-Dimer, Quantitative 300.93, Anion Gap 14, Glomerular Filtration Rate > 60.0, Lactic Acid Level 5.4*H, Calcium Level 10.3H, Ferritin 170, Total Bilirubin 0.4, Direct Bilirubin < 0.1, Aspartate Amino Transf (AST/SGOT) 8, Alanine Aminotransferase (ALT/SGPT) 35, Alkaline Phosphatase 74, Total Creatine Kinase 101, Creatine Kinase MB 2.3, Creatine Kinase MB Relative Index 2.28, Troponin I < 0.02, Total Protein 7.8, Albumin 4.5, Albumin/Globulin Ratio 1.4, Lipase 91, Procalcitonin <0.05 05/05/20 16:28: Urine Color STRAW, Urine Appearance CLEAR, Urine pH 8.0, Urine Specific [place] 1.004, Urine Protein NEGATIVE, Urine Glucose (UA) NEGATIVE, Urine Ketones NE GATIVE, Urine Blood NEGATIVE, Urine Nitrite NEGATIVE, Urine Bilirubin NEGATIVE, Urine Urobilinogen 0.2, Urine Leukocyte Esterase NEGATIVE, Urine WBC (Auto) 1, Urine RBC (Auto) 1, Urine Hyaline Casts (Auto) 0, Urine Bacteria (Auto) NEGATIVE, Urine Squamous Epithelial Cells 0, Urine Mucus (Auto) SMALL, Urine Sperm (Auto) 05/05/20 19:32: Total Creatine Kinase 82, Creatine Kinase MB 1.6, Creatine Kinase MB Relative Index 1.95, Troponin I < 0.02, Procalcitonin <0.05, Erythrocyte Sedimentation Rate 6, Lactic Acid Followup at 4 Hours 7.6*H, C-Reactive Protein, Quantitative < 0.30 05/05/20 21:25: Bedside Glucose (Misc Panel) 233H 05/05/20 23:27: Lactic Acid Level 5.6*H 05/06/20 04:24: Immature Granulocyte % (Auto) 1.3, Neutrophils (%) (Auto) 86.0H, Lymphocytes (%) (Auto) 7.4L, Monocytes (%) (Auto) 4.9, Eosinophils (%) (Auto) 0.0, Basophils (%) (Auto) 0.4, Neutrophils # (Auto) 14.2H, Lymphocytes # (Auto) 1.2L, Monocytes # (Auto) 0.8, Eosinophils # (Auto) 0.0, Basophils # (Auto) 0.1, Nucleated Red Blood Cells % (auto) 0.0, Anion Gap 10, Glomerular Filtration Rate > 60.0, Lactic Acid Followup at 4 Hours 3.7*H, Calcium Level 8.1#L, Magnesium Level 2.7H, Total Creatine Kinase 72, Creatine Kinase MB 1.3, Creatine Kinase MB Relative Index 1.81, Troponin I < 0.02 05/06/20 08:25: Lactic Acid Level 3.4*H 05/06/20 11:29: Bedside Glucose (Misc Panel) 97 05/06/20 12:55: Lactic Acid Followup at 4 Hours 3.5*H CBC/BMP Laboratory Tests 05/05/20 14:45 05/06/20 04:24 Microbiology Microbiology 05/05/20 Blood Culture, Received Pending 05/05/20 Respiratory Virus Panel (PCR) ([facility]AN) - Final, Complete Coronavirus Hku1 05/05/20 Blood Culture, Received Pending Allergies Coded Allergies: Penicillins (Verified Allergy, Intermediate, HIVES, 05/05/20) Sulfa (Sulfonamide Antibiotics) (Verified Allergy, Intermediate, HIVES, 05/05/20) fluticasone (Unverified Adverse Reaction, Intermediate, NOSE BLEEDS FROM FLONASE, 05/06/20) Home Medications Scheduled Conjugated Estrogens (Premarin) 30 Gm Cream.appl, 0.5 GRAM PV 2XW, (Reported) MONDAYS/THURSDAYS AT BEDTIME Cyclosporine (Restasis) 0.05% Droperette, 1 DROP OU BID, (Reported) Fluticasone Propionate (Flovent Hfa) 220 Mcg/Act Aer.w.adap, 2 PUFF INH BID, (Reported) Fluticasone Propionate (Flonase Allergy Relief) 9.9 Ml [place].susp, 2 SPRAY NARES QHS, (Reported) Hydroxychloroquine Sulfate (Hydroxychloroquine Sulfate) 200 Mg Tablet, 200 MG PO BID, (Reported) Levothyroxine Sodium (Levothyroxine Sodium) 75 Mcg Tablet, 75 MCG PO Q2D, (Reported) Levothyroxine Sodium (Levothyroxine Sodium) 50 Mcg Tablet, 50 MCG PO Q2D, (Reported) Metformin HCl (Metformin HCl) 500 Mg Tablet, 500 MG PO BIDWM, (Reported) Montelukast Sodium (Montelukast Sodium) 10 Mg Tablet, 10 MG PO DAILY, (Reported) Pantoprazole Sodium (Pantoprazole Sodium) 40 Mg Tablet.dr, 40 MG PO DAILY, (Reported) Prednisone (Prednisone) 10 Mg Tablet, 10 MG PO TAPER, #30 Take 4 tabs daily x 3 days, then 3 tabs daily x 3 days, then 2 tabs daily x 3 days, then 1 tab daily x 3 days and stop Sucralfate (Sucralfate) 1 Gm Tablet, 1 GM PO ACHS for 30 Days, #120 Scheduled PRN Albuterol Sulfate (Albuterol Sulfate) 2.5 Mg/0.5 Ml Vial.neb, 2.5 MG INH QID PRN for SOB/WHEEZING, (Reported) Hydrocortisone (Proctozone-Hc) 30 Gm Crm.pe.suzan, 1 APLCT [place] BID PRN for RECTAL BLEEDING, (Reported) Levalbuterol Tartrate (Levalbuterol Tartrate Hfa) 15 Gm Hfa.aer.ad, 2 PUFFS INH QID PRN for SHORTNESS OF BREATH, (Reported) ZOILA DYKES D.O. May 06, 2020 14:30 DAVID CHAMBERLAIN MD May 07, 2020 16:20
--- NOTE | 2020-05-06 15:17 | ROOR ---
Patient Name: Lana Reeves Procedure Date: 05/06/2020 2:38 PM Date of : 1965 Age: 55 Room: [facility] Gender: Female Note Status: Finalized Procedure: Upper GI endoscopy Indications: Dysphagia Providers: Sean Woods MD Referring MD: Jovany Leal MD Requesting Provider: Medicines: Monitored Anesthesia Care Complications: No immediate complications. Procedure: Pre-Anesthesia Assessment: - Prior to the procedure, a History and Physical was performed, and patient medications and allergies were reviewed. The patient is competent. The risks and benefits of the procedure and the sedation options and risks were discussed with the patient. All questions were answered and informed consent was obtained. Patient identification and proposed procedure were verified by the physician, the nurse and the anesthesiologist in the procedure room. Mental Status Examination: alert and oriented. Airway Examination: normal oropharyngeal airway and neck mobility. Respiratory Examination: clear to auscultation. CV Examination: normal. Prophylactic Antibiotics: The patient requires prophylactic antibiotics due to a prior history of acute GI bleeding and for the planned performance of dilation. Prior Anticoagulants: The patient has taken no previous anticoagulant or antiplatelet agents. ASA Grade Assessment: II - A patient with mild systemic disease. After reviewing the risks and benefits, the patient was deemed in satisfactory condition to undergo the procedure. The anesthesia plan was to use monitored anesthesia care (MAC). Immediately prior to administration of medications, the patient was re-assessed for adequacy to receive sedatives. The heart rate, respiratory rate, oxygen saturations, blood pressure, adequacy of pulmonary ventilation, and response to care were monitored throughout the procedure. The physical status of the patient was re-assessed after the procedure. The Endoscope was introduced through the mouth, and advanced to the second part of duodenum. The upper GI endoscopy was accomplished without difficulty. The patient tolerated the procedure well. Findings: Non-severe esophagitis with no bleeding was found in the lower third of the esophagus. Biopsies were taken with a cold forceps for histology. Verification of patient identification for the specimen was done by the physician and nurse using the patient's name, date and medical record number. Estimated blood loss was minimal. Scattered moderate inflammation characterized by erythema and granularity was found in the gastric antrum and at the pylorus. Biopsies were taken with a cold forceps for Helicobacter pylori testing. The duodenal bulb and second portion of the duodenum were normal. Impression: - Non-severe monilial esophagitis. Biopsied. - Gastritis. Biopsied. - Normal duodenal bulb and second portion of the duodenum. Recommendation: - Patient has a contact number available for emergencies. The signs and symptoms of potential delayed complications were discussed with the patient. Return to normal activities tomorrow. Written discharge instructions were provided to the patient. - High fiber diet. - Continue present medications. - Await pathology results. - Use sucralfate tablets 1 gram PO QID for 4 weeks. - Telephone GI clinic for pathology results in 2 weeks. - Return to primary care physician. Procedure Code(s): --- Professional --- 67471, Esophagogastroduodenoscopy, flexible, transoral; with biopsy, single or multiple Diagnosis Code(s): --- Professional --- B37.81, Candidal esophagitis K29.70, Gastritis, unspecified, without bleeding R13.10, Dysphagia, unspecified CPT copyright 2019 [employer]. All rights reserved. The codes documented in this report are preliminary and upon chick sexer review may be revised to meet current compliance requirements. Sean Woods MD Sean Woods MD 05/06/2020 3:16:33 PM Electronically signed by Sean Woods MD Number of Addenda: 0 Note Initiated On: 05/06/2020 2:38 PM Estimated Blood Loss: Estimated blood loss: none.
[2020-05-06] MEDS ORDERED: LEVO50TA5 PO (16:49)
[2020-05-06] MEDS ORDERED: LEVO75TA4 PO (16:49)
[2020-05-06] MEDS: SUCRALFATE 1 GM TAB PO SCH ×2 (17:35→21:18)
[2020-05-06] MEDS: FLUTICASONE HFA 220 MCG 12 GM INHALER (FLOVENT) INH SCH (20:35)
[2020-05-06] MEDS: FLUTICASONE PROP 0.05% NASAL SPRAY 16 GM (FLONASE) NARES SCH (21:00)
[2020-05-07] MEDS: UNRESOLVED CLARIFICATION ENTRY XX SCH (00:01)
[2020-05-07] MEDS: LEVALBUTEROL 1.25 MG/0.5 ML CONCENTRATE NEB INH SCH ×5 (00:08→14:33)
[2020-05-07 00:10] VITALS: BP 109/55
[2020-05-07 04:50] VITALS: BP 128/69
[2020-05-07 05:36] LABS: BASO # 0.1 10^3/uL (0.0-0.2); BASO % 0.7 % (0.0-1.0); EOS % 0.3 % (0.0-3.0); HEMOGLOBIN 11.6 g/dl (12.0-15.5); LYMPH % 27.7 % (24.0-44.0); MEAN CORPUSCULAR HEMOGLOBIN 29.2 pg (27.0-33.0); MEAN CORPUSCULAR HGB CONC 31.4 g/dl (32.0-36.5); MEAN CORPUSCULAR VOLUME 93.2 fl (80.0-96.0); MONO # 0.9 10^3/uL (0.0-0.8); MONO % 6.3 % (0.0-5.0); NEUTROPHILS # 8.9 10^3/uL (1.5-8.5); PLATELET COUNT, AUTOMATED 264 10^3/uL (150-450); RED BLOOD COUNT 3.97 10^6/uL (4.00-5.40); WHITE BLOOD COUNT 14.4 10^3/uL (4.0-10.0)
[2020-05-07 05:55] LABS: BLOOD UREA NITROGEN 8 MG/DL (7-18); CALCIUM LEVEL 7.8 MG/DL (8.5-10.1); CARBON DIOXIDE LEVEL 27 MEQ/L (21-32); CHLORIDE LEVEL 108 MEQ/L (98-107); CREATININE FOR GFR 0.67 MG/DL (0.55-1.30); GLOMERULAR FILTRATION RATE > 60.0 (>51); GLUCOSE, FASTING 107 MG/DL (70-100); MAGNESIUM LEVEL 2.5 MG/DL (1.8-2.4); POTASSIUM SERUM 3.8 MEQ/L (3.5-5.1); SODIUM LEVEL 142 MEQ/L (136-145)
[2020-05-07] MEDS: HEPARIN SOD (PORCINE) 5000UNITS/ML 1ML VIAL/SYRINGE SC SCH ×2 (06:10→13:42)
[2020-05-07 07:34] VITALS: BP 136/67
[2020-05-07] MEDS: NS 1,000 ML IV SCH (08:04)
[2020-05-07] MEDS: PANTOPRAZOLE 40MG VIAL (C9113 PER 1) IV SCH (08:14)
[2020-05-07] MEDS: MONTELUKAST 10 MG TAB PO SCH (08:15)
[2020-05-07] MEDS: predniSONE 20 MG TAB PO SCH (08:15)
[2020-05-07] MEDS: HYDROXYCHLOROQUINE 200 MG TAB PO SCH (08:15)
[2020-05-07] MEDS: SUCRALFATE 1 GM TAB PO SCH ×2 (08:15→12:29)
[2020-05-07] MEDS: HumaLOG INSULIN (NovoLOG) PER UNIT SC SCH ×2 (08:17→12:29)
[2020-05-07] MEDS: FLUTICASONE HFA 220 MCG 12 GM INHALER (FLOVENT) INH SCH (08:21)
[2020-05-07] MEDS ORDERED: PRED10TA2 PO (09:08)
[2020-05-07] MEDS ORDERED: SUCR1TA PO (09:08)
--- NOTE | 2020-05-07 12:31 | DS.PDOC ---
Discharge Summary General Date of Admission May 05, 2020 at 18:34 Date of Discharge 05/07/2020 Discharge Summary PROCEDURES PERFORMED DURING STAY: [None]. ADMITTING DIAGNOSES / DISCHARGE DIAGNOSES: s/p Chest pain / Atypical - possibly 2/2 esophageal etiology or musculoskeletal, less likely 2/2 cardiac / pulmonary etiology Lactic acidosis Chronic Asthma Anxiety NIDDM2 Sjogrens Gastrointestinal prophylaxis DVT prophylaxis COMPLICATIONS/CHIEF COMPLAINT: Chest pain HISTORY OF PRESENT ILLNESS: Patient is a 55-year-old female who presented to the emergency room with complaints of chest pain for the last 3 days. Patient has reported that the chest pains occurring in the middle of her chest reported as 8/10, constant aching nature without any alleviating or aggravating factors. Patient reports that she has had anxiety attacks in the past is different. Patient denies any nausea or vomiting. However, has reported difficulty with swallowing over the last 3 weeks. She was scheduled to see Dr. Kirkpatrick on 05/06 for an initial evaluation for likely EGD. Patient was admitted to the hospitalist service for further evaluation and treatment. Patient reports that this morning her symptoms have completely resolved. Denies any active chest pain. Reports no difficulty with swallowing. Has not experience any nausea, vomiting, abdominal pain, diarrhea, or discomfort with urination. Patient is not experiencing any shortness of breath, cough or wheezing. HOSPITAL COURSE: s/p Chest pain / Atypical - possibly 2/2 esophageal etiology or musculoskeletal, less likely 2/2 cardiac / pulmonary etiology - Reported history of persistent chest pain occurring for the last 3 days / currently has reported full resolution of her pain - No dysphagia reported - Troponin x3 negative - CTA noted - EKG reviewed - EGD 05/06: Non-severe monilial esophagitis and gastritis. Normal duodenal bulb and second portion of duodenum - biopsied - c/w Protonix / Carafate on discharge - GI on consultation; appreciate their input. Will have outpatient follow-up within the next 7 days for results of biopsy - Patient has also been advised to follow-up with her primary care provider, and cardiology within the next 7 days Lactic acidosis - Has improved from admission - c/w IV fluids Chronic Asthma - Recent diagnosis of bronchitis (on Prednisone as an outpatient and had already completed Doxycycline) - Physical does not reveal any wheezing - s/p Solumedrol - c/w prednisone; will continue with taper as an outpatient - c/w inhaled therapy as ordered Anxiety - s/p Ativan PRN NIDDM2 - c/w ISS Sjogrens - c/w Hydroxychloroquine Gastrointestinal prophylaxis - See above DVT prophylaxis - c/w Heparin DISCHARGE MEDICATIONS: Please see below. ALLERGIES: Please see below. PHYSICAL EXAMINATION ON DISCHARGE: Vitals (See below) General: Lying in bed, appears comfortable, AAOx3 HEENT: NC, AT CVS: RRR, +S1S2 Lungs: Air entry appears to be fair bilaterally without any auscultated rhonchi, crackles or wheezing Abdomen: Abdomen remains soft without any appreciated tenderness or distention. No guarding or rigidity Extremities: No edema is appreciated of her lower extremities, - Calf tenderness LABORATORY DATA: Please see below. IMAGING: CXR 05/04: Focal atelectasis or infiltrate lateral left lung base. CTA chest 05/05: No CT evidence of pulmonary embolus. No active cardiopulmonary disease. Thoracic scoliosis and degenerative spondylosis changes. ACTIVITY: [As tolerated]. DISCHARGE PLAN: Follow-up with primary care provider, cardiology and gastroenterology within the next 7 days Remain compliant with treatment plan and medications Return to the ER if you experience any problems DISPOSITION: Home with services DISCHARGE CONDITION: [Stable]. TIME SPENT ON DISCHARGE: 35 minutes. Vital Signs/I&Os Vital Signs Date Time Temp Pulse Resp B/P (MAP) Pulse Ox O2 Delivery O2 Flow Rate FiO2 05/07/20 07:34 97.5 78 16 136/67 (90) 99 Room Air I&O- Last 24 Hours up to 6 AM 05/07/20 06:00 Intake Total 1200 ml Output Total 2850 ml Balance -1650 ml Laboratory Data Labs 24H Laboratory Tests 2 05/06/20 12:55: Lactic Acid Followup at 4 Hours 3.5*H 05/06/20 17:31: Bedside Glucose (Misc Panel) 117H 05/06/20 20:19: Bedside Glucose (Misc Panel) 196H 05/07/20 05:13: Immature Granulocyte % (Auto) 3.0, Neutrophils (%) (Auto) 62.0, Lymphocytes (%) (Auto) 27.7, Monocytes (%) (Auto) 6.3H, Eosinophils (%) (Auto) 0.3, Basophils (%) (Auto) 0.7, Neutrophils # (Auto) 8.9H, Lymphocytes # (Auto) 4.0, Monocytes # (Auto) 0.9H, Eosinophils # (Auto) 0.0, Basophils # (Auto) 0.1, Nucleated Red Blood Cells % (auto) 0.0, Anion Gap 7L, Glomerular Filtration Rate > 60.0, Calcium Level 7.8L, Magnesium Level 2.5H 05/07/20 12:16: Bedside Glucose (Misc Panel) 179H CBC/BMP Laboratory Tests 05/07/20 05:13 FSBS Laboratory Tests Test 05/06/20 17:31 05/06/20 20:19 05/07/20 12:16 Range/Units Bedside Glucose (Misc Panel) 117 196 179 70-105 MG/DL Microbiology Microbiology 05/05/20 Blood Culture - Preliminary, Resulted No growth after 24 hours . All specim... 05/05/20 Respiratory Virus Panel (PCR) (CRISTHIAN) - Final, Complete Coronavirus Hku1 05/05/20 Blood Culture - Preliminary, Resulted No growth after 24 hours . All specim... Discharge Medications Scheduled Conjugated Estrogens (Premarin) 30 Gm Cream.appl, 0.5 GRAM PV 2XW, (Reported) MONDAYS/THURSDAYS AT BEDTIME Cyclosporine (Restasis) 0.05% Droperette, 1 DROP OU BID, (Reported) Fluticasone Propionate (Flovent Hfa) 220 Mcg/Act Aer.w.adap, 2 PUFF INH BID, (Reported) Fluticasone Propionate (Flonase Allergy Relief) 9.9 Ml [place].susp, 2 SPRAY NARES QHS, (Reported) Hydroxychloroquine Sulfate (Hydroxychloroquine Sulfate) 200 Mg Tablet, 200 MG PO BID, (Reported) Levothyroxine Sodium (Levothyroxine Sodium) 75 Mcg Tablet, 75 MCG PO Q2D, (Reported) Levothyroxine Sodium (Levothyroxine Sodium) 50 Mcg Tablet, 50 MCG PO Q2D, (Reported) Metformin HCl (Metformin HCl) 500 Mg Tablet, 500 MG PO BIDWM, (Reported) Montelukast Sodium (Montelukast Sodium) 10 Mg Tablet, 10 MG PO DAILY, (Reported) Pantoprazole Sodium (Pantoprazole Sodium) 40 Mg Tablet.dr, 40 MG PO DAILY, (Reported) Prednisone (Prednisone) 10 Mg Tablet, 10 MG PO TAPER Take 4 tabs daily x 3 days, then 3 tabs daily x 3 days, then 2 tabs daily x 3 days, then 1 tab daily x 3 days and stop Sucralfate (Sucralfate) 1 Gm Tablet, 1 GM PO ACHS Scheduled PRN Albuterol Sulfate (Albuterol Sulfate) 2.5 Mg/0.5 Ml Vial.neb, 2.5 MG INH QID PRN for SOB/WHEEZING, (Reported) Hydrocortisone (Proctozone-Hc) 30 Gm Crm.pe.suzan, 1 APLCT CA BID PRN for RECTAL BLEEDING, (Reported) Levalbuterol Tartrate (Levalbuterol Tartrate Hfa) 15 Gm Hfa.aer.ad, 2 PUFFS INH QID PRN for SHORTNESS OF BREATH, (Reported) Allergies Coded Allergies: Penicillins (Verified Allergy, Intermediate, HIVES, 05/05/20) Sulfa (Sulfonamide Antibiotics) (Verified Allergy, Intermediate, HIVES, 05/05/20) fluticasone (Unverified Adverse Reaction, Intermediate, NOSE BLEEDS FROM FLONASE, 05/06/20) FALGUNI PIEDRA MD May 07, 2020 12:31
== END 2020-05-07 16:03 | disposition home or self-care (01) | DRG 392 ==
LOC: M ED 14:17 → M ED INP 18:34 → M PCU 20:30
PROVIDERS: ADMIT Internal Medicine; ATTEND Internal Medicine
PROC: 0DB78ZX Excision of Stomach, Pylorus, Via Natural or Artificial Opening Endoscopic, Diagnostic (ICD-10-PCS; 2020-05-06)
PROC: 0DB38ZX Excision of Lower Esophagus, Via Natural or Artificial Opening Endoscopic, Diagnostic (ICD-10-PCS; principal; 2020-05-06 14:31)
DX: K29.70 Gastritis, unspecified, without bleeding (principal); E87.2 Acidosis; B37.81 Candidal esophagitis; J45.909 Unspecified asthma, uncomplicated; F41.9 Anxiety disorder, unspecified; E11.9 Type 2 diabetes mellitus without complications; K44.9 Diaphragmatic hernia without obstruction or gangrene; M35.00 Sjogren syndrome, unspecified; R07.89 Other chest pain; R13.10 Dysphagia, unspecified; Z20.822 Contact with and (suspected) exposure to COVID-19; Z79.899 Other long term (current) drug therapy; Z88.0 Allergy status to penicillin; Z88.2 Allergy status to sulfonamides; Z88.8 Allergy status to other drugs, medicaments and biological substances

== ENCOUNTER → 2020-05-21 | Outpatient (REF) | payer MEDICARE, OTHER ==
[~2020-05-21] MED LIST changes: +ALB2.5NEB INH; +ESTR62CR PV; +FLON1SPR NARES; +FLUT22IN INH; +HYDR200T3 PO; +LEVA45AE INH; +LEVO50TA5 PO; +METF500T13 PO; +MONT10TA10 PO; +PANT40TA29 PO; +PRED10TA2 PO; +PROC1CRE5 PR; +REST0.05 OU; +SUCR1TA PO
== END ==
LOC: M LABDRAWC 11:27
PROVIDERS: ATTEND Physician Assistant
DX: R00.2 Palpitations (principal)

== ENCOUNTER → 2020-05-21 | Outpatient (REF) | payer MEDICARE, OTHER ==
[2020-05-21 12:51] LABS: BASO # 0.1 10^3/uL (0.0-0.2); BASO % 0.7 % (0.0-1.0); EOS # 0.1 10^3/uL (0.0-0.5); EOS % 1.6 % (0.0-3.0); HEMATOCRIT 37.7 % (36.0-47.0); HEMOGLOBIN 11.7 g/dl (12.0-15.5); LYMPH # 3.3 10^3/uL (1.5-5.0); LYMPH % 40.3 % (24.0-44.0); MEAN CORPUSCULAR HEMOGLOBIN 28.6 pg (27.0-33.0); MEAN CORPUSCULAR VOLUME 92.2 fl (80.0-96.0); MONO # 0.7 10^3/uL (0.0-0.8); MONO % 8.2 % (2.0-8.0); NEUTROPHILS # 3.9 10^3/uL (1.5-8.5); NEUTROPHILS % 48.1 % (36.0-66.0); PLATELET COUNT, AUTOMATED 296 10^3/uL (150-450); RED BLOOD COUNT 4.09 10^6/uL (4.00-5.40); WHITE BLOOD COUNT 8.1 10^3/uL (4.0-10.0)
[2020-05-21 13:14] LABS: ALBUMIN 4.1 GM/DL (3.2-5.2); ALT/SGPT 32 U/L (12-78); BILIRUBIN,TOTAL 0.3 MG/DL (0.2-1.0); BLOOD UREA NITROGEN 13 MG/DL (7-18); CALCIUM LEVEL 9.4 MG/DL (8.5-10.1); CARBON DIOXIDE LEVEL 30 MEQ/L (21-32); CHLORIDE LEVEL 105 MEQ/L (98-107); CHOLESTEROL LEVEL 231 MG/DL (<200); CHOLESTEROL RISK RATIO 3.397 (<5); CREATININE FOR GFR 0.78 MG/DL (0.55-1.30); FREE T4 0.96 NG/DL (0.76-1.46); GLOMERULAR FILTRATION RATE > 60.0 (>51); GLUCOSE, FASTING 108 MG/DL (70-100); HDL CHOLESTEROL 68 MG/DL (>40); LDL CHOLESTEROL 127 MG/DL (<100); NON-HDL-C 163 MG/DL; POTASSIUM SERUM 3.9 MEQ/L (3.5-5.1); SODIUM LEVEL 141 MEQ/L (136-145); TOTAL PROTEIN 6.7 GM/DL (6.4-8.2); TRIGLYCERIDES LEVEL 181 MG/DL (<150)
[2020-05-21 13:35] LABS: ERYTHROCYTE SEDIMENTATION RATE 7 mm/hr (0-30)
[2020-05-21 13:45] LABS: HEMOGLOBIN A1c 6.3 %
== END ==
LOC: M SFHCCLAY 07:26
PROVIDERS: ATTEND Family Medicine
DX: K20.90 Esophagitis, unspecified without bleeding (principal); R07.89 Other chest pain; M35.00 Sjogren syndrome, unspecified; E03.9 Hypothyroidism, unspecified; E09.9 Drug or chemical induced diabetes mellitus without complications; R00.2 Palpitations

== ENCOUNTER → 2020-09-09 | Outpatient (CLI) | payer MEDICARE, OTHER ==
--- NOTE | 2020-09-09 12:51 | REPMRS ---
Patient History The patient states she has not had a clinical breast exam in over a year. Family history of breast cancer at age 55 in paternal grandmother. Took estrogen for 6 months. Took unspecified hormones for 4 years. Patient states no breast complaints today. Patient has signed MRS History Sheet. Digital Woman Screen Mammo: September 09, 2020 - Exam #: [id number] Bilateral CC and MLO view(s) were taken. Technologist: Morena Cardenas, Technologist Prior study comparison: August 27, 2019, bilateral digital woman screen mammo performed at [facility]. August 14, 2018, bilateral digital woman screen mammo performed at [facility]. FINDINGS: The breast tissue is heterogeneously dense. This may lower the sensitivity of mammography. Screening. Digital screening (2D) mammography was performed bilaterally in the CC and MLO projections. Additionally, breast tomosynthesis (3D mammography) was performed bilaterally in the CC and MLO projections. Todays exam was compared to the prior exam/exams. By history, the patient has no complaints of a palpable breast abnormality or other significant breast complaints. The breasts are unchanged in size and shape.Once again, dense heterogenous fibroglandular elements are seen bilaterally in a stable appearing pattern but to such a degree that the sensitivity of the mammogram in detecting cancer is decreased. There are no christie-soft tissue densities or spiculated masses. There is no internal architectural distortion. There are no suspicious christie-calcific clusters. Skin thickening or nipple retraction is not present. IMPRESSION: BI-RADS Category 2- Benign Findings. There is no evidence of malignant alteration of the breasts. Followup examination recommended in one year. The Volpara volumetric breast density category is C, the breasts are heterogenously dense which may obscure small masses. This mammogram was read with the assistance of ServiceTitan,an FDA approved computer aided detection system for mammography. The lifetime Tyrer-Cuzick score is 10.8 % Negative x-ray reports should not delay surgical consultation if a dominant or clinically suspicious mass is present. Not all breast cancers can be identified by mammography. Therefore, we recommend that you continue to perform regular breast self-examination and physical examination and then promptly contact your physician of any concerns or changes. Adenosis and dense breasts may obscure an underlying neoplasm. Assessment: BI-RADS/ACR category 2 mammogram. Benign Findings. Recommendation Routine screening mammogram of both breasts in 1 year. Electronically Signed By: Julius Rosales DO 09/09/20 [id number]
== END ==
LOC: M WHC 10:57
PROVIDERS: ATTEND Obstetrics & Gynecology
DX: Z01.419 Encounter for gynecological examination (general) (routine) without abnormal findings (principal); Z12.31 Encounter for screening mammogram for malignant neoplasm of breast; Z92.23 Personal history of estrogen therapy; Z92.29 Personal history of other drug therapy
CPT/HCPCS: 77063; 77067; G0101

== ENCOUNTER → 2020-10-12 | Outpatient (CLI) | payer MEDICARE, OTHER ==
[~2020-10-12] MED LIST changes: +E-Z-GAS II EFFERVESCENT PACKET (SODIUM BICARB./CITRIC ACID/SIMETHICONE) As Ordered ONE; +E-Z-HD 98% w/w 340GM SUSP BTL As Ordered ONE; +E-Z-PAQUE 96% w/w SUSP 176GM BTL As Ordered ONE
--- NOTE | 2020-10-12 18:43 | REP ---
INDICATION: GERD ESOPHAGITIS. COMPARISON: None. TECHNIQUE: The procedure was performed under the direct supervision of Dr. Lee. The images were reviewed with Dr. Lee. Liquid barium and gas producing crystals were given in the erect position as well as liquid barium in the prone oblique position in order to perform a double contrast upper GI examination. Additionally liquid barium was given at the end of the examination in order to perform a small bowel follow through. A combination od fluoroscopy, spot films and last image hold technology was utilized, 1.9 minutes of fluoro time was utilized for this procedure. FINDINGS: The refuse driver film shows no organomegaly or pathological masses. The intestinal gas pattern is non-specific. There are surgical sutures noted in the pelvis. The oral and pharyngeal stages of deglutition are unremarkable. Esophageal transport is prompt and efficient and there is no esophagitis, stricture, mucosal ring or hiatal hernia. There is gastroesophageal reflux demonstrated to the level of the thoracic inlet. Within the stomach there are multiple sub cm polyps identified. The duodenal núñez are normally outlined . The mucosal folds are smooth and regular. There is no duodenitis pancreatitis peptic ulcer disease or neoplasm. The visualized portion of the proximal small bowel appears normal in course and caliber. The barium column was followed through the small bowel to the level of the terminal ileum. Small bowel transit time is approximately 15 minutes. During fluoroscopy gentle palpation shows all loops are freely movable and pliable. There are no fixed or angulated loops. The small bowel mucosal pattern is normal in course and caliber. There is no transition to suggest a partial small-bowel obstruction. Spot filming of the terminal ileum shows it to be unremarkable. IMPRESSION: 1. There is gastroesophageal reflux demonstrated to the level of the thoracic inlet. 2. There are multiple sub cm polyps within the stomach. <Electronically signed by Onofre Mckeon > 10/12/20 [id number] <Electronically signed by Nilson Lee > 10/12/20 [id number]
== END ==
LOC: M RAD 08:38
PROVIDERS: ATTEND Internal Medicine Gastroenterology
DX: K21.00 Gastro-esophageal reflux disease with esophagitis, without bleeding (principal); B37.81 Candidal esophagitis; K31.7 Polyp of stomach and duodenum

== ENCOUNTER → 2020-10-19 | Outpatient (REF) | payer MEDICARE, OTHER ==
[~2020-10-19] MED LIST changes: -E-Z-GAS II EFFERVESCENT PACKET (SODIUM BICARB./CITRIC ACID/SIMETHICONE) As Ordered ONE; -E-Z-HD 98% w/w 340GM SUSP BTL As Ordered ONE; -E-Z-PAQUE 96% w/w SUSP 176GM BTL As Ordered ONE
[2020-10-19 11:35] LABS: BASO # 0.1 10^3/uL (0.0-0.2); EOS # 0.2 10^3/uL (0.0-0.5); EOS % 2.6 % (0.0-3.0); HEMATOCRIT 40.9 % (36.0-47.0); HEMOGLOBIN 13.1 g/dl (12.0-15.5); LYMPH # 2.3 10^3/uL (1.5-5.0); LYMPH % 33.4 % (24.0-44.0); MEAN CORPUSCULAR HEMOGLOBIN 29.2 pg (27.0-33.0); MEAN CORPUSCULAR VOLUME 91.1 fl (80.0-96.0); MONO # 0.7 10^3/uL (0.0-0.8); MONO % 9.8 % (2.0-8.0); NEUTROPHILS # 3.7 10^3/uL (1.5-8.5); NEUTROPHILS % 52.8 % (36.0-66.0); PLATELET COUNT, AUTOMATED 332 10^3/uL (150-450); RED BLOOD COUNT 4.49 10^6/uL (4.00-5.40)
[2020-10-19 11:50] LABS: ALBUMIN 4.2 GM/DL (3.2-5.2); ALT/SGPT 50 U/L (12-78); BILIRUBIN,TOTAL 0.4 MG/DL (0.2-1.0); BLOOD UREA NITROGEN 8 MG/DL (7-18); CALCIUM LEVEL 9.3 MG/DL (8.5-10.1); CARBON DIOXIDE LEVEL 28 MEQ/L (21-32); CHLORIDE LEVEL 108 MEQ/L (98-107); CHOLESTEROL LEVEL 196 MG/DL (<200); CHOLESTEROL RISK RATIO 3.438 (<5); CREATININE FOR GFR 0.62 MG/DL (0.55-1.30); FREE T4 1.09 NG/DL (0.76-1.46); GLOMERULAR FILTRATION RATE > 60.0 (>51); GLUCOSE, FASTING 118 MG/DL (70-100); HDL CHOLESTEROL 57 MG/DL (>40); LDL CHOLESTEROL 113 MG/DL (<100); NON-HDL-C 139 MG/DL; SODIUM LEVEL 142 MEQ/L (136-145); TOTAL PROTEIN 7.3 GM/DL (6.4-8.2); TRIGLYCERIDES LEVEL 132 MG/DL (<150)
== END ==
LOC: M SFHCCLAY 07:20
PROVIDERS: ATTEND Family Medicine
DX: E03.9 Hypothyroidism, unspecified (principal); J45.909 Unspecified asthma, uncomplicated; E78.2 Mixed hyperlipidemia

== ENCOUNTER → 2020-11-17 | Outpatient (CLI) | payer MEDICARE, OTHER ==
--- NOTE | 2020-11-17 11:42 | REP ---
INDICATION: COUGH COMPARISON: 05/05/2020 TECHNIQUE: PA and lateral. FINDINGS: The mediastinum and cardiac silhouette are normal. The lung nice are clear and without acute consolidation, effusion, or pneumothorax. The skeletal structures are intact and mild scoliosis is again noted. IMPRESSION: No acute cardiopulmonary process. <Electronically signed by Ruslan Alves > 11/17/20 [id number]
== END ==
LOC: M RAD 10:44
PROVIDERS: ATTEND Nurse Practitioner Adult Health
DX: R05 Cough (principal)

== ENCOUNTER → 2021-01-07 | Outpatient (REF) | payer MEDICARE, OTHER ==
[~2021-01-07] MED LIST changes: +AZEL1SPR3; -MONT10TA10 PO; +MONT10TA97 PO; +ONE-1TAB PO; +PANT20TA6 PO; +PRAV10TA4 PO; +PROB250C PO; +VITA500C3 PO
[2021-01-07 12:15] LABS: BASO # 0.1 10^3/uL (0.0-0.2); BASO % 1.1 % (0.0-1.0); EOS # 0.2 10^3/uL (0.0-0.5); EOS % 2.8 % (0.0-3.0); HEMATOCRIT 40.9 % (36.0-47.0); HEMOGLOBIN 13.2 g/dl (12.0-15.5); LYMPH # 2.5 10^3/uL (1.5-5.0); LYMPH % 31.5 % (24.0-44.0); MEAN CORPUSCULAR HEMOGLOBIN 29.8 pg (27.0-33.0); MEAN CORPUSCULAR HGB CONC 32.3 g/dl (32.0-36.5); MEAN CORPUSCULAR VOLUME 92.3 fl (80.0-96.0); MONO # 0.7 10^3/uL (0.0-0.8); MONO % 8.6 % (2.0-8.0); NEUTROPHILS # 4.4 10^3/uL (1.5-8.5); NEUTROPHILS % 55.4 % (36.0-66.0); PLATELET COUNT, AUTOMATED 351 10^3/uL (150-450); RED BLOOD COUNT 4.43 10^6/uL (4.00-5.40); WHITE BLOOD COUNT 7.9 10^3/uL (4.0-10.0)
[2021-01-07 13:08] LABS: ALBUMIN 4.2 GM/DL (3.2-5.2); ALT/SGPT 51 U/L (12-78); BILIRUBIN,TOTAL 0.4 MG/DL (0.2-1.0); BLOOD UREA NITROGEN 9 MG/DL (7-18); CALCIUM LEVEL 9.5 MG/DL (8.5-10.1); CARBON DIOXIDE LEVEL 27 MEQ/L (21-32); CHLORIDE LEVEL 105 MEQ/L (98-107); FREE T4 1.04 NG/DL (0.76-1.46); GLOMERULAR FILTRATION RATE > 60.0 (>51); GLUCOSE, FASTING 128 MG/DL (70-100); POTASSIUM SERUM 3.8 MEQ/L (3.5-5.1); SODIUM LEVEL 140 MEQ/L (136-145); TOTAL PROTEIN 7.3 GM/DL (6.4-8.2)
== END ==
LOC: M SFHCCLAY 08:24
PROVIDERS: ATTEND Family Medicine
DX: R73.01 Impaired fasting glucose (principal); E03.9 Hypothyroidism, unspecified; R13.10 Dysphagia, unspecified; M35.00 Sjogren syndrome, unspecified

== ENCOUNTER → 2021-01-07 | Outpatient (REF) | payer MEDICARE, OTHER ==
[2021-01-07 13:55] LABS: BASO # 0.1 10^3/uL (0.0-0.2); BASO % 1.2 % (0.0-1.0); EOS # 0.3 10^3/uL (0.0-0.5); EOS % 2.9 % (0.0-3.0); HEMATOCRIT 41.5 % (36.0-47.0); HEMOGLOBIN 13.1 g/dl (12.0-15.5); LYMPH # 2.8 10^3/uL (1.5-5.0); LYMPH % 31.9 % (24.0-44.0); MEAN CORPUSCULAR HEMOGLOBIN 29.6 pg (27.0-33.0); MEAN CORPUSCULAR HGB CONC 31.6 g/dl (32.0-36.5); MEAN CORPUSCULAR VOLUME 93.9 fl (80.0-96.0); MONO # 0.9 10^3/uL (0.0-0.8); MONO % 9.6 % (2.0-8.0); NEUTROPHILS # 4.7 10^3/uL (1.5-8.5); NEUTROPHILS % 53.8 % (36.0-66.0); PLATELET COUNT, AUTOMATED 359 10^3/uL (150-450); RED BLOOD COUNT 4.42 10^6/uL (4.00-5.40); WHITE BLOOD COUNT 8.8 10^3/uL (4.0-10.0)
[2021-01-07 14:14] LABS: HEMOGLOBIN A1c 6.1 %
[2021-01-07 14:21] LABS: ALBUMIN 4.2 GM/DL (3.2-5.2); ALT/SGPT 52 U/L (12-78); BILIRUBIN,TOTAL 0.4 MG/DL (0.2-1.0); BLOOD UREA NITROGEN 9 MG/DL (7-18); CALCIUM LEVEL 9.3 MG/DL (8.5-10.1); CARBON DIOXIDE LEVEL 29 MEQ/L (21-32); CHLORIDE LEVEL 105 MEQ/L (98-107); CREATININE FOR GFR 0.72 MG/DL (0.55-1.30); GLOMERULAR FILTRATION RATE > 60.0 (>51); GLUCOSE, FASTING 128 MG/DL (70-100); POTASSIUM SERUM 3.9 MEQ/L (3.5-5.1); RHEUMATOID FACTOR QUANT < 10.0 IU/ML (<15.0); SODIUM LEVEL 139 MEQ/L (136-145); TOTAL PROTEIN 7.4 GM/DL (6.4-8.2)
[2021-01-07 14:28] LABS: VITAMIN B12 LEVEL 572 PG/ML
[2021-01-07 14:29] LABS: FOLATE 23.5 NG/ML
[2021-01-07 15:10] LABS: ERYTHROCYTE SEDIMENTATION RATE 9 mm/hr (0-30)
[2021-01-11 11:00] LABS: ALBUMIN 4.88 GM/DL (3.29-5.55); ALPHA-1-GLOBULIN % 3.3 % (2.9-4.9); ALPHA-1-GLOBULINS 0.25 GM/DL (0.17-0.41); ALPHA-2-GLOBULINS 0.77 GM/DL (0.42-0.99); ALPHA-2-GLOBULINS % 10.2 % (7.1-11.8); BETA-1-GLOBULINS % 6.7 % (4.7-7.2); BETA-2-GLOBULINS 0.36 GM/DL (0.19-0.55); BETA-2-GLOBULINS % 4.8 % (3.2-6.5); GAMMA GLOBULINS 0.75 GM/DL (0.65-1.58)
[2021-01-17 13:09] LABS: ANTI DOUBLE STRAND-DNA AB <1 IU/mL (0-9); ANTINUCLEAR ANTIBODIES DIRECT Positive (Negative); CERULOPLASMIN 26.1 mg/dL (19.0-39.0); COPPER PLASMA 88 ug/dL (80-158); LEAD BLOOD ADULT <1 ug/dL (0-4); MERCURY LEVEL <1.0 ug/L (0.0-14.9); SJOGREN'S ANTI SS-A <0.2 AI (0.0-0.9); SJOGREN'S ANTI SS-B <0.2 AI (0.0-0.9); SMITH ANTIBODIES <0.2 AI (0.0-0.9); VITAMIN B1 LEVEL WHOLE BLOOD 137.4 nmol/L (66.5-200.0); VITAMIN B6,PYRIDOXAL PHOSPHATE 17.4 ug/L (2.0-32.8); VITAMIN E(ALPHA TOCOPHEROL) 10.6 mg/L (7.0-25.1); VITAMIN E(GAMMA TOCOPHEROL) 0.9 mg/L (0.5-5.5)
== END ==
LOC: M LABDRAWC 11:34
PROVIDERS: ATTEND Psychiatry & Neurology Neurology
DX: R25.1 Tremor, unspecified (principal); Z79.899 Other long term (current) drug therapy

== ENCOUNTER 2021-02-10 09:34 | Emergency (ER) | payer MEDICARE, OTHER ==
[~2021-02-10] VITALS: Ht 162.6 cm; Wt 66.9 kg
[~2021-02-10 09:34] MED LIST changes: -AZEL1SPR3; +MONT10TA10 PO; -MONT10TA97 PO; -ONE-1TAB PO; -PANT20TA6 PO; -PRAV10TA4 PO; -PROB250C PO; -VITA500C3 PO
--- OUTSIDE RECORDS SUMMARY | 2021-02-10 10:15 | CCD | Continuity of Care Document ---
Author Author Lana MACIAS M.D. Organization Unknown Address [address] [place] [id number] Phone [phone] Care Team Providers Care Felt Puller Name Role Phone Jovany Leal M.D. AUTM [phone] Problems Active Problems Provider Date Dizziness Aubrey Iyer M.D. Onset: 10/22/2017 Social History Type Date Description Comments Sex Unknown Tobacco Use Start: Unknown Patient has never smoked Allergies and adverse reactions Active Allergies Criticality Reaction | Severity Comments Date Penicillin Unable to assess criticality 10/22/2017 Sulfa Antibiotics Unable to assess criticality 10/22/2017 Medications Active Medications SIG Qnty Indications Ordering Provide r Date Alprazolam 0.5mg Tablets 1 tab by mouth half an hour before mri scan. may repeat once if needed. 2paul Polo M.D. 01/06/2021 Levothyroxine Sodium 50mcg Tablets Patient alternates between 50 and 75 mcg every other day. Aubrey Iyer M.D. Immunizations Description No Information Available Vital Signs Date Vital Result Comment 10/22/2017 8:54am BP Systolic 156 mmHg BP Diastolic 78 mmHg Heart Rate 84 /min Respiratory Rate 12 /min Height 64 inches 5'4" Weight 135.00 lb BMI (Body Mass Index) 23.2 kg/m2 [place] Body Weight 120 lb Results Test Acquired Date Facility Test Result H/L Range Note Hemoglobin A1c 01/07/2021 [facility] Hemoglobin A1c 6.1 % Normal 1 Estimated Average Glucose 128 mg/dL High 60-110 CBC With Differential 01/07/2021 [facility] White Blood Count 8.8 10 Normal 4.0-10.0 Red Blood Count 4.42 10 Normal 4.00-5.40 Hemoglobin 13.1 g/dL Normal 12.0-15.5 Hematocrit 41.5 % Normal 36.0-47.0 Mean Corpuscular Volume 93.9 fl Normal 80.0-96.0 Mean Corpuscular Hemoglobin 29.6 pg Normal 27.0-33.0 Mean Corpuscular HGB Conc 31.6 g/dL Low 32.0-36.5 Red Cell Distribution Width 13.2 % Normal 11.5-14.5 Platelet Count, Automated 359 10 Normal 150-450 Neutrophils % 53.8 % Normal 36.0-66.0 Lymph % 31.9 % Normal 24.0-44.0 [place] % 9.6 % High 2.0-8.0 Eos % 2.9 % Normal 0.0-3.0 Baso % 1.2 % High 0.0-1.0 Immature Granulocyte % 0.6 % Normal 0-3.0 Nucleated Red Blood Cell % 0.0 % Normal 0-0 Neutrophils # 4.7 10 Normal 1.5-8.5 Lymph # 2.8 10 Normal 1.5-5.0 [place] # 0.9 10 High 0.0-0.8 Eos # 0.3 10 Normal 0.0-0.5 Baso # 0.1 10 Normal 0.0-0.2 Laboratory test finding 01/07/2021 [facility] Erythrocyte Sedimentation Rate 9 mm/hr Normal 0-30 Comprehensive Metabolic Profil 01/07/2021 [facility] Glucose, Fasting 128 mg/dL High 70-100 Blood Urea Nitrogen 9 mg/dL Normal 7-18 Creatinine For GFR 0.72 mg/dL Normal 0.55-1.30 Glomerular Filtration Rate > 60.0 Normal >51 2 Sodium Level 139 mEq/L Normal 136-145 Potassium Serum 3.9 mEq/L Normal 3.5-5.1 Chloride Level 105 mEq/L Normal 98-107 Carbon Dioxide Level 29 mEq/L Normal 21-32 Anion Gap 5 mEq/L Low 8-16 Calcium Level 9.3 mg/dL Normal 8.5-10.1 Ast/Sgot 21 U/L Normal 7-37 Alt/SGPT 52 U/L Normal 12-78 Alkaline Phosphatase 93 U/L Normal 45-117 Bilirubin,Total 0.4 mg/dL Normal 0.2-1.0 Total Protein 7.4 GM/DL Normal 6.4-8.2 Albumin 4.2 GM/DL Normal 3.2-5.2 Albumin/Globulin Ratio 1.3 Normal 1.2-2.2 Serum Protein Electrophoresis 01/07/2021 [facility] Albumin % 65.0 % Normal 55.8-66.1 Yjzuj-8-Qdwvzlqc % 3.3 % Normal 2.9-4.9 Fbosb-8-Ohjlifxwo % 10.2 % Normal 7.1-11.8 Anby-4-Cnnohaxau % 6.7 % Normal 4.7-7.2 Rbxy-5-Iqbqrvkuf % 4.8 % Normal 3.2-6.5 Gamma Globulin % 10.0 % Low 11.1-18.8 Albumin 4.88 GM/DL Normal 3.29-5.55 Wnftu-3-Eakgpyrwy 0.25 GM/DL Normal 0.17-0.41 Vdsdd-0-Lsbcmmsyj 0.77 GM/DL Normal 0.42-0.99 Iwiy-2-Lkrwcfnjj 0.50 GM/DL Normal 0.28-0.60 Kryb-4-Qvcdpyxtd 0.36 GM/DL Normal 0.19-0.55 Gamma Globulins 0.75 GM/DL Normal 0.65-1.58 Total Protein 7.4 GM/DL Normal 6.4-8.2 Spep Interpretation SEE COMMENT Normal 3 Spep Pathologist Review REV'D BY Jocelyne SORTO Normal Vitamin B12 & Folate 01/07/2021 [facility] Vitamin B12 Level 572 pg/mL Normal 4 Folate 23.5 NG/ML Normal 5 Laboratory test finding 01/07/2021 [facility] Syphilis NONREACTIVE Normal Nonreactive 6 Rheumatoid Factor Quant < 10.0 IU/mL Normal <15.0 7 1 REFERENCE RANGES: <=5.6% NORMAL 5.7-6.4% SUGGESTS IMPAIRED GLUCOSE META BOLISM/PREDIABETIC >= 6.5% ABNORMAL 2 Units are mL/min/1.73 m2 Chronic Kidney Disease Staging per NKF: Stage I & II GFR >=60 Normal to Mildly Decreased Stage III GFR 30-59 Moderately Decreased Stage IV GFR 15-29 Severely Decreased Stage V GFR <15 Very Little GFR Left ESRD GFR <15 on ER MANAGER 3 NO M-SPIKE(S)NOTED. 4 VITAMIN B12 NORMAL RANGE NORMAL 247 - 911 PG/ML INDETERMINATE 211 - 246 PG/ML DEFICIENT LESS THAN 211 PG/ML 5 FOLATE NORMAL RANGE NORMAL GREATER THAN 5.4 NG/ML INDETERMINATE 3.4-5.4 NG/ML DEFICIENT LESS THAN 3.4 NG/ML 6 note:<nlbl:demographic_chang ed> 7 note:<nlbl:demographic_chang ed> Procedures Date Code Description Status 01/12/2021 89855 Nerve Conduction 9-10 Studies Co mpleted 01/12/2021 77391 Needle Electromyogra phy Non Extremity Done With Nerve Conduction Completed 01/12/2021 90396 Needle Electromyography Complete , Five Or More Muscles Studied Completed 01/08/2021 42330 MRI Spine Cervical W/O Contrast Completed 01/08/2021 16982 MRI Spine Cervical W/O Contrast Completed 01/08/2021 94487 MRI Brain W/O Contrast Completed 01/08/2021 07362 MRI Brain W/O Contrast Completed 01/04/2021 50343 Office/Outpatient New Moderate M DM 45-59 Minutes Completed Medical Devices Description No Information Available Encounters Type Date Location Provider Dx Diagnosis Office Visit 01/04/2021 12:30p Main office - [place] Lyndsay Macias M.D. R25.8 Other abnormal involuntary movements M54.2 Cervicalgia M62.838 Other muscle spasm M62.9 Disorder of muscle, unspecif ied Assessments Date Code Description Provider 01/12/2021 G56.00 Carpal tunnel syndrome, unspecif ied upper limb Ubaldo ColleenElaine quiroz 01/12/2021 M54.12 Radiculopathy, cervical region A bdlila Macias M.D. 01/12/2021 M54.2 Cervicalgia Ubaldo ColleenBeto 01/12/2021 R20.2 Paresthesia of skin Ubaldo ColleenElaine quiroz 01/08/2021 M62.838 Other muscle spasm Ubaldo ColleenElaine quiroz 01/08/2021 M62.838 Other muscle spasm MRI 01/08/2021 R25.8 Other abnormal involuntary movem ents Ubaldolila Macias M.D. 01/08/2021 R25.8 Other abnormal involuntary movem ents MRI 01/08/2021 M54.2 Cervicalgia Ubaldo ColleenBeto quiroz 01/08/2021 M54.2 Cervicalgia MRI 01/04/2021 R25.8 Other abnormal involuntary movem ents Lyndsay Macias M.D. 01/04/2021 M54.2 Cervicalgia Peggy Ramírez 01/04/2021 M62.838 Other muscle spasm Lyndsay Macias M.D. 01/04/2021 M62.9 Disorder of muscle, unspecified Lyndsay Macias M.D. Plan of Treatment Future Appointment(s):* 02/14/2021 9:45 am - EEG at [facility] * 02/01/2021 1:00 pm - Sheree Loomis P.A.-C. at [facility] Functional Status Description No Information Available Mental Status Description No Information Available Referrals Description No Information Available
--- OUTSIDE RECORDS SUMMARY | 2021-02-10 10:15 | CCD | Continuity of Care Document ---
Author Author Lana RODRIGUEZ.NDmitry Organization Unknown Address [address] [place] [address] Phone [phone] Care Team Providers Care Load Mixer Name Role Phone Jovany Leal M.D. AUTM [phone] AUTM Unavailable Trina Shannon AUTM [phone] Chris Carrera M.D. AUTM AUTM Unavailable Problems Active Problems Provider Date Acute sinusitis Scott Dougherty D.O. Onset: 7 Exacerbation of moderate persistent asthma Delia Rodriguez A.N. P. Onset: 01/13/2016 Long-term current use of inhaled steroid Scott Dougherty D.O. Onset: 11/02/2015 Uncomplicated moderate persistent asthma Scott Dougherty D.O. Onset: 12/24/2014 Difficulty breathing Scott Dougherty D.O. Onset: 12/25/19 15 Disturbance of consciousness Jessica Guerrero A.NDmitry Onse t: 07/20/2014 Sleep apnea Jessica Guerrero A.NDmitry Onset: 2014 Dyspnea Jessica Guerrero A.NDmitry Onset: 2014 Noncompliance with treatment Yobany Campbell MD Onset: 11/25 Asthma without status asthmaticus Yobany Campbell MD Onset: 02/06/2011 Allergic rhinitis Yobany Campbell MD Onset: 02/06/2011 Cough Yobany Campbell MD Onset: 02/06/2011 Underweight Yobany Campbell MD Onset: 02/06/2011 Allergic asthma without status asthmaticus Sean johnson M.D. Onset: 05/21/2020 Social History Type Date Description Comments Sex Unknown ETOH Use Denies alcohol use Tobacco Use Reviewed: 10/22/19 Denies Smoking Recreational Drug Use Denies Drug Use Smoking Status Reviewed: 02/09/21 Denies Smoking Allergies and adverse reactions Active Allergies Criticality Reaction | Severity Comments Date Penicillin Unable to assess criticality Urticaria 02/06/2011 Sulfa Antibiotics Unable to assess criticality Urticaria 02/06/2011 Medications Active Medications SIG Qnty Indications Ordering Provide r Date Azithromycin 250mg Tablets 2 tabs by mouth day 1, then 1 tab by mouth day 2-6 6tabs Delia Rodriguez A .N.P. 02/09/2021 Prednisone 10mg Tablets 30mg x 3 days, 20mg x 3 days, 10mg x 3 days then stop 18tabs Delia saldivar, A.N.P. 02/09/2021 Flovent HFA 220mcg/Act Aerosol 2 puff twice a day 36gm Delia Rodriguez A.N.P. 08/03/2020 Nystatin [id number]/ML Suspension 5 milliliters swish (gargle) and swallow, upto 4 times a day for 2-3 days. 60ml Sean Woods M.D. 05/19/2020 Benzonatate 200mg Capsules 1 by mouth three times a day 90caps Delia Rodriguez, A.N.P. 10/22/2019 Levalbuterol Tartrate 45mcg/Act Ae rosol Inhale Two Puffs By Mouth Four Times A Day as Needed 45units Mike Sierra.N.P. 09/15/2019 Albuterol Sulfate (2 .5mg/3ML) 0.083% Nebulizer 1 vial four times a day as needed 360ml J45.40 Scott Dougherty D.O 07/23/2019 Nebulizer Kit/Tubing/Mouthpiece K it use with nebulizer as directed 2units J45.40 Scott Dougherty D.O 07/23/2019 Singulair 10mg Tablets 1 by mouth every day 90tabs J45.40 Scott Dougherty D.O 12/24/2014 Xopenex HFA 45mcg/Act Aerosol 2 puffs qid/prn 45units Scott Dougherty D.O. 06/27/19 14 Vitamin C W/Vitamin D & Calcium 1tab po qd Unkn own Hydrocortisone HC 2.5 prn Unknown Olopatadine HCL 0.2% Solution 1 drop each eye twice a day Unknown Claritin 10mg Tablets 1tab po qd Unknown Flonase Sensimist 27 .5mcg/Dimmitt Suspension use as directed Unknown Metformin HCL 500mg Tablets 1tab po bid Unknown Hydroxychloroquine Sulfate 200mg T ablets 1tab po bid Unknown Synthroid 50mcg Tablets 1- 1 1/2 po qd as directed by pcp Unknown Restasis 0.05% Emulsion 1 gt o.u. bid Unknown History Medications Prednisone 10mg Tablets 2 tabs by mouth x 5 days, then 1 tab by mouth x 5 days, then stop 15tabs Delia Rodriguez, A.N.P. 11/22/2020 - 12/02/2020 Azithromycin 250mg Tablets 2 tabs by mouth day 1, then 1 tab by mouth day 2-6 6tabs Delia Rodriguez, A .N.P. 11/22/2020 - 11/27/2020 Sucralfate 1GM/10ML Suspension 10 milliliters by mouth half an hour before meals, and at bedtime. (3 times daily) ( if not covered give tablets) 840ml Sean johnson M.D. 10/29/2020 - 06/19/2020 Immunizations CPT Code Status Date Vaccine Lot # 38047 Given 01/27/2015 Influenza Virus Split 3 Yrs And Above For Intramuscular Use 91638 Given 01/06/2014 Influenza Virus Split 3 Yrs And Above For Intramuscular Use 91223 Given 02/06/2011 Pneumococcal PPSV23 Q2036 Given 02/04/2009 Influenza Vaccine 3 Years Of Age Or Older (Flulaval) Q2036 Given Unknown Influenza Vaccine 3 Years Of Age Or Older (Flulaval) 95026 Given Unknown Pneumococcal PPSV23 Vital Signs Date Vital Result Comment 02/09/2021 8:27am BP Systolic 128 mmHg BP Diastolic 80 mmHg Heart Rate 85 /min O2 % BldC Oximetry 97 % Height 64 inches 5'4" Weight 149.00 lb BMI (Body Mass Index) 25.6 kg/m2 [place] Body Weight 120 lb Weight 67.586 kg BSA (Body Surface Area) 1.73 m2 08/03/2020 8:01am BP Systolic 122 mmHg BP Diastolic 82 mmHg Heart Rate 76 /min O2 % BldC Oximetry 98 % Body Temperature 97.7 F Height 64 inches 5'4" Weight 149.00 lb BMI (Body Mass Index) 25.6 kg/m2 [place] Body Weight 120 lb Weight 67.586 kg BSA (Body Surface Area) 1.73 m2 Results Test Acquired Date Facility Test Result H/L Range Note FVL/[place] 02/09/2021 [facility] SEE IMAGE FVC-Pred 3.11 L FVC-Pre 2.75 L FVC-%Pred-Pre 88 L FVC-LLN 2.47 L Fev1-Pred 2.43 L Fev1-Pre 2.34 L Fev1-%Pred-Pre 96 L Fev1-LLN 1.89 L Fev6-Pred 3.01 L Fev6-Pre 2.75 L Fev6-%Pred-Pre 91 L Fev6-LLN 2.38 L Fne6zad-Doqh 79 % Ghl5olz-Jrm 85 % Hlm8ksh-%Pred-Pre 108 % Ifv6vht-WSQ 69 % Jwm1otk-Wqss 97 % Kll4aql-Xja 100 % Grp7xub-%Pred-Pre 103 % FEFMax-Pred 6.12 L/E/sec FEFMax-Pre 5.37 L/E/sec FEFMax-%Pred-Pre 87 L/E/sec FEFMax-LLN 4.53 L/E/sec Ehq0804-Tohu 2.38 L/E/sec Xzl9990-Rcz 2.96 L/E/sec Xij0492-%Pred-Pre 124 L/E/sec Hrs0440-ITI 1.23 L/E/sec ExpTime-Pre 5.68 sec Hkz7msq8-Iwwo 81 % Wcl9guj1-Zpi 85 % Nss8zft0-%Pred-Pre 104 % Ydq0nwx9-HMP 73 % Procedures Date Code Description Status 10/28/2020 45605 Office/Outpatient Established Lo w MDM 20-29 Min Completed Medical Devices Description No Information Available Encounters Type Date Location Provider Dx Diagnosis Office Visit 10/28/2020 2:10p [facility] Woods M.D. B37.81 Candidal esophagitis K21.00 Gastro-esophageal reflux dis with esophagitis, without bleed Assessments Date Code Description Provider 02/09/2021 J45.41 Moderate persistent asthma with (acute) exacerbation Shen Sierra 10/28/2020 B37.81 Candidal esophagitis Sean ferrera M.D. 10/28/2020 K21.00 Gastro-esophageal re flux disease with esophagitis, without bleeding Sean Woods M.D. Plan of Treatment Future Appointment(s):* 08/10/2021 8:30 am - Shen Sierra at [facility] Pulmonary/Thoracic 02/09/2021 - Shen Sierra* J45.41 Moderate persistent asthma with (acute) exacerbation * * New Labs:* FVL/[place], Scheduled: 08/10/21 * Follow up:* Follow up 6 months with FVL Functional Status Description No Information Available Mental Status Description No Information Available Referrals Description No Information Available
--- OUTSIDE RECORDS SUMMARY | 2021-02-10 10:15 | CCD | Continuity of Care Document ---
Author Author Lana MACIAS M.D. Organization Unknown Address [address] [place] [address] Phone [phone] Care Team Providers Care Embedded Nurse Name Role Phone Jovany Leal M.D. AUTM [phone] Problems Active Problems Provider Date Dizziness Aubrey [...] lb BMI (Body Mass Index) 23.2 kg/m2 [place] Body Weight 120 lb Results Test Acquired Date Facility Test Result H/L Range Note Hemoglobin A1c 01/07/2021 [facility] Hemoglobin A1c 6.1 % Normal 1 Estimated Average Glucose 128 mg/dL High 60-110 CBC With Differential 01/07/2021 [facility] White Blood Count 8.8 10 Normal 4.0-10.0 [...] 36.0-66.0 Lymph % 31.9 % Normal 24.0-44.0 Martin % 9.6 % High 2.0-8.0 Eos % 2.9 % Normal 0.0-3.0 Baso % 1.2 % High 0.0-1.0 Immature Granulocyte % 0.6 % Normal 0-3.0 Nucleated Red Blood Cell % 0.0 % Normal 0-0 Neutrophils # 4.7 10 Normal 1.5-8.5 Lymph # 2.8 10 Normal 1.5-5.0 Martin # 0.9 10 High 0.0-0.8 Eos # 0.3 10 Normal 0.0-0.5 Baso # 0.1 10 Normal 0.0-0.2 Laboratory test finding 01/07/2021 [facility] Erythrocyte Sedimentation Rate 9 mm/hr Normal 0-30 Comprehensive Metabolic Profil 01/07/2021 [facility] Glucose, Fasting 128 mg/dL High 70-100 Blood [...] 1.3 Normal 1.2-2.2 Serum Protein Electrophoresis 01/07/2021 [facility] Albumin % 65.0 % Normal 55.8-66.1 Jthwi-9-Lhasozvk % 3.3 % Normal 2.9-4.9 Gqwzp-6-Zjgpsctga % 10.2 % Normal 7.1-11.8 Umcg-6-Qnxysqbop % 6.7 % Normal 4.7-7.2 Vnmw-4-Pfhkejmao % 4.8 % Normal 3.2-6.5 Gamma Globulin % 10.0 % Low 11.1-18.8 Albumin 4.88 GM/DL Normal 3.29-5.55 Peyvx-6-Ywhqextvl 0.25 GM/DL Normal 0.17-0.41 Gvdtl-3-Pozclzuzs 0.77 GM/DL Normal 0.42-0.99 Haeq-6-Emobaffnh 0.50 GM/DL Normal 0.28-0.60 Vkcd-3-Nurnmkfao 0.36 GM/DL Normal 0.19-0.55 Gamma Globulins 0.75 GM/DL Normal 0.65-1.58 Total Protein 7.4 GM/DL Normal 6.4-8.2 Spep Interpretation SEE COMMENT Normal 3 Spep Pathologist Review REV'D BY Jocelyne SORTO Normal Vitamin B12 & Folate 01/07/2021 [facility] Vitamin B12 Level 572 pg/mL Normal 4 Folate 23.5 NG/ML Normal 5 Laboratory test finding 01/07/2021 [facility] Syphilis NONREACTIVE Normal Nonreactive 6 Rheumatoid Factor [...] Little GFR Left ESRD GFR <15 on [employer] 3 NO M-SPIKE(S)NOTED. 4 VITAMIN B12 NORMAL RANGE NORMAL 247 - 911 PG/ML INDETERMINATE 211 - 246 PG/ML DEFICIENT LESS THAN 211 PG/ML 5 FOLATE NORMAL RANGE NORMAL GREATER THAN 5.4 NG/ML INDETERMINATE 3.4-5.4 NG/ML DEFICIENT LESS THAN 3.4 NG/ML 6 note:<nlbl:demographic_chang ed> 7 note:<nlbl:demographic_chang ed> Procedures Date Code Description Status 01/08/2021 00411 MRI Spine Cervical W/O Contrast Completed 01/08/2021 89968 MRI Spine Cervical W/O Contrast Completed 01/08/2021 37088 MRI Brain W/O Contrast Completed 01/08/2021 88621 MRI Brain W/O Contrast Completed 01/04/2021 34294 Office/Outpatient New Moderate M DM 45-59 Minutes Completed Medical Devices Description No Information Available Encounters Type Date Location Provider Dx Diagnosis Office Visit 01/04/2021 12:30p [facility] Lyndsay Macias M.D. R25.8 Other abnormal involuntary movements M54.2 Cervicalgia M62.838 Other muscle spasm M62.9 Disorder of muscle, unspecif ied Assessments Date Code Description Provider 01/08/2021 M62.838 Other muscle spasm Ubaldo ColleenPeggy quirozDPriyanka 01/08/2021 M62.838 Other muscle spasm MRI 01/08/2021 R25.8 Other abnormal involuntary movem ents Ubaldo ColleenPeggy quirozDPriyanka 01/08/2021 R25.8 Other abnormal involuntary movem ents MRI 01/08/2021 M54.2 Cervicalgia Ubaldo Colleen, M.D Priyanka 01/08/2021 M54.2 Cervicalgia MRI 01/04/2021 R25.8 Other abnormal involuntary movem ents Lyndsay ColleenElaine quiroz 01/04/2021 M54.2 Cervicalgia Lyndsay ColleenPeggy quiroz DPriyanka 01/04/2021 M62.838 Other muscle spasm Lyndsay Macias M.D. 01/04/2021 M62.9 Disorder of muscle, unspecified Lyndsay Macias M.D. Plan of Treatment Future Appointment(s):* 02/14/2021 9:45 am - EEG at [facility] * 02/01/2021 1:00 pm - Sheree Loomis P.A.-C. at [facility] Functional Status Description No Information Available Mental Status Description No Information Available Referrals Description No Information Available
--- OUTSIDE RECORDS SUMMARY | 2021-02-10 10:15 | CCD ---
Author Author [facility] Organization [facility] Address Unknown Phone Unavailable Care Team Providers Care Seasoning Mixer Name Role Phone Jovany Leal Unavailable PROBLEMS Type Condition ICD9-CM Code [id number] Code Onset Dates Condition S tatus W/U Status Risk SNOMED Code Notes Problem Moderate persistent asthma with acute exacerbation J45.41 Active confirmed 832542753415601 Problem Vertigo R42 Active confirmed 957582529 Problem Tremor R25.1 Active confirmed 29206059 Problem Allergic rhinitis due to pollen, unspecified seasonality J30.1 Active confirmed 85841865 Problem Anxiety F41.9 Active confirmed 56860832 Problem SHEILA positive R76.8 Active confirmed 1086123 01 Problem Allergic rhinitis due to fungal spores, unspecif ied seasonality J30.89 Active confirmed 22035076 Problem Acquired absence of both cervix and uterus Z90.710 Active confirmed 553417573 Problem Sinusitis, unspecified chronicity, unspecified location J32.9 Active confirmed 60944701 Problem Vaginal atrophy N95.2 Active confirmed 2971 70990 Problem Dry eye syndrome, unspecified laterality H04.129 Active confirmed 64815140 Problem Sinusitis chronic, frontal J32.1 Active confirmed 79804707 Problem Dysphagia, unspecified type R13.10 Active confirmed 41117118 Problem Moderate persistent asthma without complication J4 5.40 Active confirmed 311384013 Problem Vasomotor symptoms due to menopause N95.1 Acti ve confirmed 940306188 Problem Thrush B37.0 Active confirmed 81716784 Problem Other hyperlipidemia E78.4 Active confirmed 61379249 Problem Elevated fasting glucose R73.01 Active confirmed 86459014 Problem Restless legs syndrome G25.81 Active confirmed 06027977 Problem Constipation in female K59.00 Active confirmed 66531559 Problem Unspecified asthma, uncomplicated J45.909 Active confirmed 15035677 Problem Fat pad E65 Active confirmed 127393866 Problem Gastro-esophageal reflux disease without esophagitis K21.9 Active confirmed 871351613 Problem Midline cystocele N81.11 Active confirmed 42 8295400 Problem Perimenopausal vasomotor symptoms N95.1 Active confirmed 300571592 Problem Dyspareunia in female N94.10 Active confirmed 75326068 Problem Impaired fasting glucose R73.01 Active confirmed 148196567 Problem Stress incontinence in female N39.3 Active confirm ed 24883932 Problem Essential hypertension I10 Active confirmed 6577046 Problem 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, 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 Active confirmed 2941025 Problem Urethrocele N81.0 Active confirmed 20328445 Problem Sjogren''s syndrome, with unspecified organ involvement M35.00 Active confirmed 96771935 Problem Internal hemorrhoids K64.8 Active confirmed 76012035 Problem Essential (primary) hypertension I10 Active conf irmed 56188896 Problem Lymphadenopathy of head and neck region R59.0 Active confirmed 537693100 Problem Vitamin D deficiency, unspecified E55.9 Active con firmed 52464342 Problem 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 Active confirmed 48594488 Problem Abdominal pain, right lower quadrant R10.31 Act angela confirmed 437713946 Problem Chondromalacia of patella, 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 Active confirmed 78414082 Problem Mixed hyperlipidemia E78.2 Active confirmed 263950546 Problem Hypothyroidism, unspecified E03.9 Active confirmed 01072666 Problem Other chronic pain G89.29 Active confirmed 8 6774963 Problem Rectocele N81.6 Active confirmed 0085761 ALLERGIES Allergen (clinical drug ingredient) Drug/Non Drug Allergy do cumented on EMR Reaction Allergy Type Onset Date Status Sulfasalazine Sulfa Antibiotics hives Drug Allergy Ac tive Penicillin (For Allergies Use Only) Hives Drug Allerg y Active pravachol body aches Non Drug Allergy Active Bee Sting Anaphylaxis Drug Allergy Active Parafon Forte DSC RASH Drug Allergy Activ e ENCOUNTERS from 1965 to 2021-01-06 Encounter Location Date Provider Diagnosis [place] [phone] [place] [address] 13 Dec, 2020 Jovany Leal Impaired fasting glucose R73.01 ; Hypoth yroidism, unspecified E03.9 ; Dysphagia, unspecified type R13.10 and Sjogren''s syndrome, with unspecified organ involvement M35.00 IMMUNIZATIONS Vaccine Route Administration Date Status Influenza 18 yrs & older Flublok IM Intramuscular Jan 02, 2019 Administered Influenza 18 yrs & older Flublok IM Intramuscular Jan 02, 2018 Administered TDAP 0.5mL (Boostrix) IM Intramuscular Apr 25, 2013 Administe red Influenza 6mo & up Fluzone IM Intramuscular Feb 03, 2015 Admi nistered SOCIAL HISTORY Tobacco Use: Social History Observation Description Date Details (start date - stop date) Former Smoker Sex Assigned At : Social History Observation Description Sex Assigned At Unknown Education: Question Answer Notes Level of Education: High School Audit Question Answer Notes Total Score: 0 Interpretation: Alcohol Education Gnosticist: Question Answer Notes Gnosticist No rastafarian beliefs that would impact health care. Drug and Alcohol Question Answer Notes Total [...] you a: former smoker quit age 15 / Additional Findings: Tobacco Non-User Current non-smoker How long has it been since you last smoked? > 10 years updated 10/22/2020 REASON FOR REFERRAL No Information VITAL SIGNS No information MEDICATIONS Medication SIG (Take, Route, Frequency, Duration) Notes Start Da te End Date Status Plaquenil 200 MG 1 tab Orally bid No t-Taking OneTouch Verio - as directed In Vitro Daily Aug, Active Verapamil HCl ER 120 MG 1 tablet Orally Once a day for 30 day(s) Sep, Active Albuterol Sulfate (2.5 MG/3ML) 0.083% 3 ml as needed I nhalation Three times a day Active Voltaren 1 % 1-2 gm Externally qid Sep, Active Claritin 10 MG 1 tablet Orally Once a day Active Azithromycin 500 MG 1 tablet Orally for 5 day(s) Sep, Active Flonase Sensimist 27.5 MCG/SPRAY 1 puff in each nostril Nasally Onc e a day Active metFORMIN HCl 500 MG 1 tabs with meals, bid orally bid Apr, Active Fluconazole 100 MG 2 tabs day one then 1 table t daily Orally Daily for 10 day(s) May, Not-Taking OneTouch Verio - TEST EVERY DAY Acti ve Vitamin C 1 TAB Orally DAILY/takes during the winter Active Multivitamins 1 TAB Orally DAILY Act angela Xopenex HFA 45 MCG/ACT 4 puffs as needed Inhalation every 4 hrs Active Levothyroxine Sodium 75 MCG TAKE ONE TABLET BY MOUTH E VERY OTHER DAY ALTERNATING WITH 50MCG for 90 Active Vitamin D 1000 UNIT 2 tablet Orally bid Active Flovent HFA 220 MCG/ACT 2 puff Inhalation Twice a day Active Singulair 10 mg 1 tab Orally Once a day Active Hydroxychloroquine Sulfate 200 MG 1 tab Orally bid Active Nebulizer/Tubing/Mouthpiece as directed Sep, Active Sucralfate 1 GM 1 tablet on an empty stomach Orally four times daily Not-Taking Restasis 0.05 % 1 into affected eye Ophthalmic qd Active Levothyroxine Sodium 50 MCG TAKE ONE TABLET BY MOUTH E VERY OTHER DAY ALTERNATING WITH 75MCG for 90 Active Olopatadine HCl 0.1 % 1 drop into affected eye Ophthalmic Twice a day Active One Touch Delica 33 gauge as directed Aug, Active OneTouch Verio w/Device as directed Aug, Active PROCEDURES No Information RESULTS No Results REASON FOR VISIT order MEDICAL (GENERAL) HISTORY Type Description Date Medical History IBS Medical History hyperlipidemia borderline Medical History ASTHMA Medical History internal hemorroids Medical History sjorgrens Medical History Tyrer Cuzick score 6.89% Surgical History marylu. salpingectomy Surgical History tubal ligation Surgical History endometrial ablation 07/03 Surgical History D&C 05/05 Surgical History laparoscopic 11/02 Surgical History ABLATION 2009 Surgical History COLONOSCOPY 09/19/13 Surgical History LAVH . culdoplasty and enter ocele repair , ovaries remain 11/2010 Surgical History Colonoscopy,UGI 09/21/17 Surgical History lip Bx 01/28/2018 Surgical History right knee surgery 01/29/2020 Surgical History endoscopy 05/06/2020 Hospitalization History Sleep study 07/27/14 Hospitalization History [facility] for dehydration aft er colonoscopy for IV and bloodwork 09/22/[address] [facility] hospitalization 05/06/2020 Goals Section No Information Health Concerns No Information MEDICAL EQUIPMENT No Information MENTAL STATUS No Information FUNCTIONAL STATUS No Information ASSESSMENTS Encounter Date Diagnosis Assessment Notes Treatment Notes Treatm ent Clinical Notes Dec, Impaired fasting glucose (ICD-10 - R73.01) Dec, Hypothyroidism, unspecified (ICD-10 - E03.9) Dec, Dysphagia, unspecified type (ICD-10 - R13.10) Dec, Sjogren''s syndrome, with un specified organ involvement (ICD-10 - M35.00) PLAN OF TREATMENT Medication Medication Name Sig Start Date Stop Date One Touch Delica 33 gauge as directed Aug, OneTouch Verio w/Device as directed Aug, Olopatadine HCl 0.1 % 1 drop into affected eye Ophthalmic Twice a day Levothyroxine Sodium 50 MCG TAKE ONE TABLET BY MOUTH E VERY OTHER DAY ALTERNATING WITH 75MCG for 90 Vitamin D 1000 UNIT 2 tablet Orally bid Flovent HFA 220 MCG/ACT 2 puff Inhalation Twice a day OneTouch Verio - TEST EVERY DAY metFORMIN HCl 500 MG 1 tabs with meals, bid orally bid Apr, Singulair 10 mg 1 tab Orally Once a day Xopenex HFA 45 MCG/ACT 4 puffs as needed Inhalation every 4 hrs Vitamin C 1 TAB Orally DAILY/takes during the winter Restasis 0.05 % 1 into affected eye Ophthalmic qd Albuterol Sulfate (2.5 MG/3ML) 0.083% 3 ml as needed I nhalation Three times a day Levothyroxine Sodium 75 MCG TAKE ONE TABLET BY MOUTH E VERY OTHER DAY ALTERNATING WITH 50MCG for 90 Hydroxychloroquine Sulfate 200 MG 1 tab Orally bid Multivitamins 1 TAB Orally DAILY Claritin 10 MG 1 tablet Orally Once a day Flonase Sensimist 27.5 MCG/SPRAY 1 puff in each nostril Nasally Once a day Verapamil HCl ER 120 MG 1 tablet Orally Once a day for 30 day(s) Sep, Nebulizer/Tubing/Mouthpiece as directed Sep, Voltaren 1 % 1-2 gm Externally qid Sep, Azithromycin 500 MG 1 tablet Orally for 5 day(s) Sep, Future Test Test Name Order Date CBC with Auto Differential 20210105 Comprehensive Metabolic Profile (CMP) 20210105 HEMOGLOBIN A1c 20210105 FREE T4 & TSH PANEL 20210105 Next Appt Details Provider Name:Jovany Leal, 2021-02-15 10 :30:00 AM, BlaiseTanisha SMART, , [place], [address], Insurance Providers Payer Name Payer Address Payer Phone Insured Name Patient Relati onship to Insured Coverage Start Date Coverage End Date [facility] [address] [address] [facility] [phone] [id number] [place] [employer] MEDICARE Part A and B [address] [facility] [phone] [place] [employer] self
--- OUTSIDE RECORDS SUMMARY | 2021-02-10 10:15 | CCD | Continuity of Care Document ---
Author Author Lana RUTLEDGE Organization Unknown Address [address] [place] [address] Phone [phone] Care Team Providers Care Media Law Faculty Member Name Role Phone Jovany Leal M.D. AUTM [phone] Problems Active Problems Provider Date Dizziness Aubrey [...] Available Vital Signs Date Vital Result Comment 02/01/2021 6:14am BP Systolic 150 mmHg BP Diastolic 80 mmHg Heart Rate 84 /min Respiratory Rate 16 /min 10/22/2017 8:54am BP Systolic 156 mmHg BP Diastolic 78 mmHg Heart Rate 84 /min Respiratory Rate 12 /min Height 64 inches 5'4" Weight 135.00 lb BMI (Body Mass Index) 23.2 kg/m2 [place] Body Weight 120 lb Results Test Acquired Date Facility Test Result H/L Range Note Hemoglobin A1c 01/07/2021 [facility] Hemoglobin A1c 6.1 % Normal 1 Estimated Average Glucose 128 mg/dL High 60-110 CBC With Differential 01/07/2021 [facility] White Blood Count 8.8 10 Normal [...] 36.0-66.0 Lymph % 31.9 % Normal 24.0-44.0 Ball[place] % 9.6 % High 2.0-8.0 Eos % 2.9 % Normal 0.0-3.0 Baso % 1.2 % High 0.0-1.0 Immature Granulocyte % 0.6 % Normal 0-3.0 Nucleated Red Blood Cell % 0.0 % Normal 0-0 Neutrophils # 4.7 10 Normal 1.5-8.5 Lymph # 2.8 10 Normal 1.5-5.0 Ballard # 0.9 10 High 0.0-0.8 Eos # 0.3 10 Normal 0.0-0.5 Baso # 0.1 10 Normal 0.0-0.2 Laboratory test finding 01/07/2021 [facility] Erythrocyte Sedimentation Rate 9 mm/hr Normal 0-30 Comprehensive Metabolic Profil 01/07/2021 [facility] Glucose, Fasting 128 mg/dL High 70-100 [...] 1.3 Normal 1.2-2.2 Serum Protein Electrophoresis 01/07/2021 [facility] Albumin % 65.0 % Normal 55.8-66.1 Ruffz-5-Jdpogkrd % 3.3 % Normal 2.9-4.9 Ajdwt-5-Zlfdwsxif % 10.2 % Normal 7.1-11.8 Tjqh-6-Binccmiok % 6.7 % Normal 4.7-7.2 Mmwc-1-Fgxwaslpy % 4.8 % Normal 3.2-6.5 Gamma Globulin % 10.0 % Low 11.1-18.8 Albumin 4.88 GM/DL Normal 3.29-5.55 Qhtgu-4-Cbdhkfkcl 0.25 GM/DL Normal 0.17-0.41 Oprko-8-Brvhyyygi 0.77 GM/DL Normal 0.42-0.99 Lvwz-6-Rexnqszub 0.50 GM/DL Normal 0.28-0.60 Tbgl-1-Klrwixugx 0.36 GM/DL Normal 0.19-0.55 Gamma Globulins 0.75 GM/DL Normal 0.65-1.58 Total Protein 7.4 GM/DL Normal 6.4-8.2 Spep Interpretation SEE COMMENT Normal 3 Spep Pathologist Review REV'D BY Jocelyne SORTO Normal Vitamin B12 & Folate 01/07/2021 [facility] Vitamin B12 Level 572 pg/mL Normal 4 Folate 23.5 NG/ML Normal 5 Laboratory test finding 01/07/2021 [facility] Syphilis NONREACTIVE Normal Nonreactive 6 Rheumatoid Factor Quant < 10.0 IU/mL Normal <15.0 7 Vitamin E Level 01/07/2021 [facility] Vitamin E(Alpha Tocopherol) 10.6 mg/L Normal 7.0-25.1 8 Vitamin E(Gamma Tocopherol) 0.9 mg/L Normal 0.5-5.5 9 Laboratory test finding 01/07/2021 [facility] Vitamin B1 Level Whole Blood 137.4 nmol/L Normal 66.5-200.0 10 Vitamin B6,Pyridoxal Phosphate 17.4 ug/L Normal 2.0-32.8 11 Antinuclear Antibodies 01/07/2021 [facility] Antinuclear Antibodies Direct Positive Abnormal Negative Anti Double Strand-Dna AB <1 IU/mL Normal 0-9 12 ENTRY OPERATOR Antibodies 1.0 AI High 0.0-0.9 Mckeon Antibodies <0.2 AI Normal 0.0-0.9 Sjogren's Anti SS-A <0.2 AI Normal 0.0-0.9 Sjogren's Anti SS-B <0.2 AI Normal 0.0-0.9 Sheila Comment (SEE NOTE) Normal . 13 Laboratory test finding 01/07/2021 [facility] Lead Blood Adult <1 g/dL Normal 0-4 14 Ceruloplasmin 26.1 mg/dL Normal 19.0-39.0 Copper Plasma 88 g/dL Normal 80-158 15 Mercury Level <1.0 ug/L Normal 0.0-14.9 16 1 REFERENCE RANGES: <=5.6% NORMAL 5.7-6.4% SUGGESTS IMPAIRED GLUCOSE META BOLISM/PREDIABETIC >= 6.5% ABNORMAL 2 Units are mL/min/1.73 m2 Chronic Kidney Disease Staging per NKF: Stage I & II GFR >=60 Normal to Mildly Decreased Stage III GFR 30-59 Moderately Decreased Stage IV GFR 15-29 Severely Decreased Stage V GFR <15 Very Little GFR Left ESRD GFR <15 on DIRECTOR OF CORPORATE MARKETING 3 NO M-SPIKE(S)NOTED. 4 VITAMIN B12 NORMAL RANGE NORMAL 247 - 911 PG/ML INDETERMINATE 211 - 246 PG/ML DEFICIENT LESS THAN 211 PG/ML 5 FOLATE NORMAL RANGE NORMAL GREATER THAN 5.4 NG/ML INDETERMINATE 3.4-5.4 NG/ML DEFICIENT LESS THAN 3.4 NG/ML 6 note:<nlbl:demographic_chang ed> 7 note:<nlbl:demographic_chang ed> 8 This test was developed and its performance characteristics determined by [employer]. It has not been cleared or approved by the Food and Drug Administration. 9 This test was developed and its performance characteristics determined by [employer]. It has not been cleared or approved by the Food and Drug Administration. Reference intervals for alpha and gamma-tocopherol determined from National Health and Nutrition Examination Survey, 5588-7768. Individuals with alpha-tocopherol levels less than 5.0 mg/L are considered vitamin E deficient. 10 This test was developed and its performance characteristics determined by [employer]. It has not been cleared or approved by the Food and Drug Administration. 11 This test was developed and its performance characteristics determined by [employer]. It has not been cleared or approved by the Food and Drug Administration. 12 Negative <5 Equivocal 5 - 9 Positive >9 13 . Autoantibody Disease Association Condition Frequency -------- --------- Antinuclear Antibody, SLE, mixed connective Direct (SHEILA-D) tissue diseases -------- --------- dsDNA SLE 40 - 60% -------- --------- Chromatin Drug induced SLE 90% SLE 48 - 97% -------- --------- SSA (Ro) SLE 25 - 35% Sjogren's Syndrome 40 - 70% Lupus 100% -------- --------- SSB (La) SLE 10% Sjogren's Syndrome 30% ------- --------- Sm (anti-Mckeon) SLE 15 - 30% ------- --------- ENTRY OPERATOR Mixed Connective Tissue Disease 95% (U1 nRNP, SLE 30 - 50% anti-ribonucleoprotein) Polymyositis and/or Dermatomyositis 20% -------- --------- Scl-70 (antiDNA Scleroderma (diffuse) 20 - 35% topoisomerase) Crest 13% -------- --------- Ebonie-1 Polymyositis and/or Dermatomyositis 20 - 40% -------- --------- Centromere B Scleroderma - Crest variant 80% 14 Analysis by inductively coup led plasma/mass spectrometry (ICP/MS) Environmental Exposure: WHO Recommendation <20 Occupational Exposure: OSHA Lead Std 40 ZANA 30 . Detection Limit = 1 15 This test was developed and its performance characteristics determined by [employer]. It has not been cleared or approved by the Food and Drug Administration. Detection Limit = 5 16 This test was developed and its performance characteristics determined by [employer]. It has not been cleared or approved by the Food and Drug Administration. Environmental Exposure: <15.0 Occupational Exposure: ZANA - Inorganic Mercury: 15.0 . Detection Limit = 1.0 Performed at: [facility] [employer] [id number] Polishing Machine Operator: Flaco Waite MD, Phone: [phone] Performed at: [address] [id number] Polishing Machine Operator: Angie Torres MD, Phone: [phone] Procedures Date Code Description Status 02/01/2021 78397 Office/Outpatient Established Mo d MDM 30-39 Min Completed 01/12/2021 75246 Nerve Conduction 9-10 Studies Co mpleted 01/12/2021 63988 Needle Electromyogra phy Non Extremity Done With Nerve Conduction Completed 01/12/2021 72023 Needle Electromyography Complete , Five Or More Muscles Studied Completed 01/08/2021 16112 MRI Spine Cervical W/O Contrast Completed 01/08/2021 63956 MRI Spine Cervical W/O Contrast Completed 01/08/2021 79259 MRI Brain W/O Contrast Completed 01/08/2021 53021 MRI Brain W/O Contrast Completed 01/04/2021 71643 Office/Outpatient New Moderate M DM 45-59 Minutes Completed Medical Devices Description No Information Available Encounters Type Date Location Provider Dx Diagnosis Office Visit 02/01/2021 9:30a Main office - [place] Sheree palmer P.A.-C. G25.0 Essential tremor M54.2 Cervicalgia M47.892 Other spondylosis, cervical region Office Visit 01/04/2021 12:30p Main office - [place] Lyndsay Macias M.D. R25.8 Other abnormal involuntary movements M54.2 Cervicalgia M62.838 Other muscle spasm M62.9 Disorder of muscle, unspecif ied Assessments Date Code Description Provider 02/01/2021 G25.0 Essential tremor Sheree Loomis P.A.-C. 02/01/2021 M54.2 Cervicalgia Sheree Loomis P.A.-C. 02/01/2021 M47.892 Other spondylosis, cervical lucius on Sheree Loomis P.A.-C. 01/12/2021 G56.00 Carpal tunnel syndrome, unspecif ied upper limb Ubaldo Elaine Macias 01/12/2021 M54.12 Radiculopathy, cervical region A bdlila Macias M.D. 01/12/2021 M54.2 Cervicalgia UbaldoBeto Cool 01/12/2021 R20.2 Paresthesia of skin Ubaldo Colleen, M.D. 01/08/2021 M62.838 Other muscle spasm Ubaldo Colleen, M.D. 01/08/2021 M62.838 Other muscle spasm MRI 01/08/2021 R25.8 Other abnormal involuntary movem ents Ubaldo Colleen, M.D. 01/08/2021 R25.8 Other abnormal involuntary movem ents MRI 01/08/2021 M54.2 Cervicalgia Ubaldo Colleen, M.D . 01/08/2021 M54.2 Cervicalgia MRI 01/04/2021 R25.8 Other abnormal involuntary movem ents Lyndsay Colleen, M.D. 01/04/2021 M54.2 Cervicalgia Lyndsay Colleen, M. D. 01/04/2021 M62.838 Other muscle spasm Lyndsay Colleen, M.D. 01/04/2021 M62.9 Disorder of muscle, unspecified Lyndsayus Macias MPriyankaDPriyanka Plan of Treatment Future Appointment(s):* 07/27/2021 11:15 am - Sheree Loomis P.A.-C. at Main office [facility] 02/01/2021 - Sheree Loomis P.A.-C.* G25.0 Essential tremor* Comments:* Mild on exam. Propranolol or primidone can be considered in the future. EEG is p ending. * M54.2 Cervicalgia* Comments:* Stable. PT or pain clinic can be considered. * M47.892 Other spondylosis, cervical region* Follow up:* 6 months. Functional Status Description No Information Available Mental Status Description No Information Available Referrals Description No Information Available
--- OUTSIDE RECORDS SUMMARY | 2021-02-10 10:15 | CCD | Continuity of Care Document ---
Author Author Lana CORDERO Organization Unknown Address [address] [place] [address] Phone [phone] Care Team Providers Care Certified Meeting Professional Name Role Phone Jovany Leal M.D. AUTM [phone] Problems Active Problems Provider Date Dizziness Aubrey [...] lb BMI (Body Mass Index) 23.2 kg/m2 [place] Body Weight 120 lb Results Test Acquired Date Facility Test Result H/L Range Note Hemoglobin A1c 01/07/2021 [facility] Hemoglobin A1c 6.1 % Normal 1 Estimated Average Glucose 128 mg/dL High 60-110 CBC With Differential 01/07/2021 [facility] White Blood Count 8.8 10 [...] 36.0-66.0 Lymph % 31.9 % Normal 24.0-44.0 [place] % 9.6 % High 2.0-8.0 Eos % 2.9 % Normal 0.0-3.0 Baso % 1.2 % High 0.0-1.0 Immature Granulocyte % 0.6 % Normal 0-3.0 Nucleated Red Blood Cell % 0.0 % Normal 0-0 Neutrophils # 4.7 10 Normal 1.5-8.5 Lymph # 2.8 10 Normal 1.5-5.0 Placer # 0.9 10 High 0.0-0.8 Eos # 0.3 10 Normal 0.0-0.5 Baso # 0.1 10 Normal 0.0-0.2 Laboratory test finding 01/07/2021 [facility] Erythrocyte Sedimentation Rate 9 mm/hr Normal 0-30 1 REFERENCE RANGES: <=5.6% NORMAL 5.7-6.4% SUGGESTS IMPAIRED GLUCOSE META BOLISM/PREDIABETIC >= 6.5% ABNORMAL Procedures Date Code Description Status 01/04/2021 92653 Office/Outpatient New Moderate M DM 45-59 Minutes Completed Medical Devices Description No Information Available Encounters Type Date Location Provider Dx Diagnosis Office Visit 01/04/2021 12:30p Main office - [place] Lyndsay Macias M.D. R25.8 Other abnormal involuntary movements M54.2 Cervicalgia M62.838 Other muscle spasm M62.9 Disorder of muscle, unspecif ied Assessments Date Code Description Provider 01/04/2021 R25.8 Other abnormal involuntary movem ents Lyndsay Macias M.D. 01/04/2021 M54.2 Cervicalgia Peggy Ramírez 01/04/2021 M62.838 Other muscle spasm Lyndsay Macias M.D. 01/04/2021 M62.9 Disorder of muscle, unspecified Lyndsay Macias M.D. Plan of Treatment Future Appointment(s):* 02/14/2021 9:45 am - EEG at [facility] * 01/12/2021 8:30 am - Ubaldo Macias M.D. at [facility] * 02/01/2021 1:00 pm - Sheree Loomis P.A.-C. at [facility] Functional Status Description No Information Available Mental Status Description No Information Available Referrals Description No Information Available
--- OUTSIDE RECORDS SUMMARY | 2021-02-10 10:15 | CCD | Continuity of Care Document ---
Author Lana Mary M.D. Organization Unknown Address [address] [place] [id number] Phone [phone] Care Team Providers Care Client Manager Name Role Phone Jovany Leal M.D. AUTM [phone] Problems Active Problems Provider Date Dizziness Aubrey Iyer M.D. Onset: 10/22/2017 Social History Type Date Description Comments Sex Unknown Tobacco Use Start: Unknown Patient has never smoked Allergies and adverse reactions Active Allergies Criticality Reaction | Severity Comments Date Penicillin Unable to assess criticality 10/22/2017 Sulfa Antibiotics Unable to assess criticality 10/22/2017 Medications Active Medications SIG Qnty Indications Ordering Provide r Date Levothyroxine Sodium 50mcg Tablets Patient alternates between 50 and 75 mcg every other day. Aubrey Iyer M.D. Immunizations Description No Information Available Vital Signs Date Vital Result Comment 10/22/2017 8:54am BP Systolic 156 mmHg BP Diastolic 78 mmHg Heart Rate 84 /min Respiratory Rate 12 /min Height 64 inches 5'4" Weight 135.00 lb BMI (Body Mass Index) 23.2 kg/m2 [place] Body Weight 120 lb Results Description No Information Available Procedures Description No Information Available Medical Devices Description No Information Available Encounters Description No Information Available Assessments Description No Information Available Plan of Treatment Future Appointment(s):* 01/12/2021 8:30 am - Ubaldo Macias M.D. at [facility] * 02/03/2021 11:15 am - EEG at [facility] * 02/01/2021 1:00 pm - Sheree Loomis P.A.-C. at [facility] Functional Status Description No Information Available Mental Status Description No Information Available Referrals Description No Information Available
--- OUTSIDE RECORDS SUMMARY | 2021-02-10 10:15 | CCD ---
Author Author Scott Brady MD [facility] Organization Scott Brady MD [facility] Address [address] [place] [phone] Phone Care Team Providers Care Machine Lay Out Worker Name Role Phone Noni Tate O.D. Unavailable [phone] Jose Antonio LAMB, Scott SHER Unavailable [phone] Trina Malone PP [phone] Nancy Hatch MD Unavailable [phone] Reason for Referral No Reason for Referral Recorded Problems Includes: Active, inactive, and resolved Problems All Visits Onset Date - Time Resolved Date - Time Provider Co ndition Status Correction Use of Other Medications 06/07/2018 - 12:00AM Scott Brady MD, FACS Active Sicca Syndrome with Organ Involvement 06/07/2018 - 12:00AM Scott Brady MD, CHRISTOS Active Cataract Senile Nuclear 10/22/2017 - 12:00AM [facility] DO Active Conjunctivitis Acute Atopic 08/06/2017 - 12:00AM Unknown - Unkno Ameya Kirkpatrick DO Resolved Conjunctivitis Chronic Allergic 08/06/2017 - 12:00AM Scott Brady MD, FACS Active Dry Eye Syndrome 08/06/2017 - 12:00AM Scott gann MD, CHRISTOS Active Vitreous Disorders Degeneration 08/06/2017 - 12:00AM Scott Brady MD, FACS Active Plan of Treatment Future Appointments Date Time Location Provider [facility] 10-2 02/14/2021 12:30PM [facility] 6 Month Follow-Up 04/13/2021 12:50PM [facility] Scott Holley MD, FACS Assessments Includes: Assessments for all patient encounters Findings Encounter Date Dry eye syndrome 6 Month follow up with testi ng with Scott Brady MD, FACS 10/05/2020 prison use of other medications 6 Month follow up w ith testing with Scott Brady MD, FACS 10/05/2020 Long-term use of oral hypoglycemics 6 Month follow up with testing with Scott Brady MD, FACS 10/05/2020 Nuclear senile cataract 6 Month follow up with testi ng with Scott Brady MD, FACS 10/05/2020 Sicca syndrome with organ involvement 6 Month follow u p with testing with Scott Brady MD, FACS 10/05/2020 Type 2 diabetes mellitus without complication 6 Month follow up with testing with Scott Brady MD, FACS 10/05/2020 Dry eye syndrome 8 Month Follow-Up with Scott garzon MD, FACS 04/01/2020 director public service use of other medications 8 Month Follow-Up w ith Scott Brady MD, FACS 04/01/2020 Long-term use of oral hypoglycemics 8 Month Follow-Up with Scott Brady MD, FACS 04/01/2020 Nuclear senile cataract 8 Month Follow-Up with Scott Bermudez MD, FACS 04/01/2020 Sicca syndrome with organ involvement 8 Month Follow-U p with Scott Brady MD, FACS 04/01/2020 Type 2 diabetes mellitus without complication 8 Month Follow-Up with Scott Brady MD, FACS 04/01/2020 prison use of other medications TESTING - VISUAL FI ELD & OCT with Scott Brady MD, FACS 01/08/2020 Sicca syndrome with organ involvement TESTING - VISUAL FIELD & OCT with Scott Brady MD, FACS 01/08/2020 Dry eye syndrome 7 Month Follow-Up with Scott garzon MD, FACS 08/19/2019 director public service use of other medications 7 Month Follow-Up w ith Scott Brady MD, FACS 08/19/2019 Long-term use of oral hypoglycemics 7 Month Follow-Up with Scott Brady MD, FACS 08/19/2019 Nuclear senile cataract 7 Month Follow-Up with Scott Bermudez MD, FACS 08/19/2019 Sicca syndrome with organ involvement 7 Month Follow-U p with Scott Brady MD, FACS 08/19/2019 Type 2 diabetes mellitus without complication 7 Month Follow-Up with Scott Brady MD, FACS 08/19/2019 director public service use of other medications TESTING - VISUAL FI ELD & OCT with Scott Brady MD, FACS 03/10/2019 Sicca syndrome with organ involvement TESTING - VISUAL FIELD & OCT with Scott Brady MD, FACS 03/10/2019 Dry eye syndrome 6 Month Follow-Up with Scott garzon MD, FACS 12/03/2018 prison use of other medications 6 Month Follow-Up w ith Scott Brady MD, FACS 12/03/2018 Nuclear senile cataract 6 Month Follow-Up with Scott Bermudez MD, FACS 12/03/2018 Sicca syndrome with organ involvement 6 Month Follow-U p with Scott Brady MD, FACS 12/03/2018 prison use of other medications TESTING - VISUAL FI ELD & OCT with Scott Brady MD, FACS 07/10/2018 Sicca syndrome with organ involvement TESTING - VISUAL FIELD & OCT with Scott Brady MD, FACS 07/10/2018 Chronic allergic conjunctivitis 9 Month Follow-Up with Scott Brady MD, FACS 06/07/2018 Dry eye syndrome 9 Month Follow-Up with Scott garzon MD, FACS 06/07/2018 prison use of other medications 9 Month Follow-Up w ith Scott Brady MD, FACS 06/07/2018 Nuclear senile cataract 9 Month Follow-Up with Scott Bermudez MD, FACS 06/07/2018 Sicca syndrome with organ involvement 9 Month Follow-U p with Scott Brady MD, FACS 06/07/2018 director public service use of other medications TESTING - VISUAL FI ELD & OCT with Scott Brady MD, FACS 02/25/2018 Chronic allergic conjunctivitis TRIAGE NON URGENT with Darci Kirkpatrick DO 10/22/2017 Dry eye syndrome of both eyes TRIAGE NON URGENT with Ameya Kirkpatrick DO 10/22/2017 Nuclear senile cataract TRIAGE NON URGENT with Ameya centeno DO 10/22/2017 Vitreous degeneration TRIAGE NON URGENT with Ameya jackson DO 10/22/2017 Acute atopic conjunctivitis 6 Week Follow-Up with Scott Patel MD, [facility] 09/17/2017 Chronic allergic conjunctivitis 6 Week Follow-Up with Scott Brady MD, [facility] 09/17/2017 Dry eye syndrome 6 Week Follow-Up with Scott mchugh MD, [facility] 09/17/2017 Acute atopic conjunctivitis NEW PATIENT WITH REFERRAL with Scott Brady MD, FACS 08/06/2017 Chronic allergic conjunctivitis NEW PATIENT WITH REFER RAL with Scott Holley MD, [facility] 08/06/2017 Dry eye syndrome NEW PATIENT WITH REFERRAL with Scott Brady MD, FACS 08/06/2017 Vitreous degeneration NEW PATIENT WITH REFERRAL [facility] Scott Brady MD, [facility] 08/06/2017 Instructions Instructions not supported for this document typeNo Instructions Recorded Medical Equipment - Implanted Devices Includes: Current and historical DevicesNo Medical Equipment Recorded Medications Includes: Current and historical Medications Current Medications (continue as prescribed) Restasis 0.05% Ophthalmic Emulsion 02/23/2020 Provi mariana: Scott Brady MD, [facility] Diagnosis: Dry eye syndrome of bilateral lacrimal glands One drop twice a day in both eyes Olopatadine HCl 0.1% Ophthalmic Solution 09/16/2019 Provider: Scott Brady MD FACS Diagnosis: Other chronic allerg ic conjunctivitis One drop twice a day in both eyes metFORMIN HCl ER (OSM) 1000 MG Oral Tablet Extended Release 24 Hour 08/19/2019 Provider: Diagnosis: Plaquenil 200MG Oral Tablet 06/07/2018 Provider: Diagnosis: Omeprazole 40MG Oral Capsule Delayed Release 10/22/2017 Provider: Diagnosis: Levalbuterol Tartrate 45MCG/ACT Inhalation Aerosol 8 Provider: Diagnosis: B Complex Vitamins Oral Capsule 08/06/2017 Provider : Diagnosis: Black Cohosh 540MG Oral Capsule 08/06/2017 Provider : Diagnosis: [facility] Vitamin D3 2000UNIT Oral Tablet 08/06/2017 Prov ider: Diagnosis: Flovent HFA 220MCG/ACT Inhalation Aerosol 08/06/2017 Provider: Diagnosis: Montelukast Sodium 10MG Oral Tablet 08/06/2017 Prov ider: Diagnosis: Levothyroxine Sodium 50MCG Oral Tablet 08/06/2017 P rovider: Diagnosis: Levothyroxine 25MG Oral Tablet 08/06/2017 Provider: Diagnosis: Every other day Claritin 10MG Oral Tablet 08/06/2017 Provider: Diagnosis: One-A-Day Energy Oral Tablet 08/06/2017 Provider: Diagnosis: Iron 28MG Oral Tablet 08/06/2017 Provider: Diagnosis: Restasis 0.05% Ophthalmic Emulsion 08/06/2017 Provi mariana: Diagnosis: Past Medications on file Restasis 0.05% Ophthalmic Emulsion 09/09/2018 - 02/23/2020 P rovider: Scott Brady MD, FACS Diagnosis: Dry eye syndrome of bilateral lacrimal glands One drop twice a day in both eyes Olopatadine HCl 0.1% Ophthalmic Solution 09/09/2018 - 2019 Provider: Scott Brady MD, FACS Diagnosis: Acute atopic conjunc tivitis, bilateral One drop twice a day in both eyes, Keep on file Olopatadine HCl 0.1% Ophthalmic Solution 07/26/2018 - 2018 Provider: Scott Brady MD, FACS Diagnosis: Acute atopic conjunc tivitis, bilateral One drop twice a day in both eyes, Keep on file Lotemax 0.5% Ophthalmic Gel 10/22/2017 - 01/28/2019 Provider : Ameya Kirkpatrick DO Diagnosis: Dry eye syndrome of bilateral lacrimal glands One drop three times a day in both eyes for 2 weeks Olopatadine HCl 0.1% Ophthalmic Solution 08/27/2017 - 2018 Provider: Scott Brady MD, FACS Diagnosis: Acute atopic conjunc tivitis, bilateral One drop twice a day in both eyes, Keep on file Patanol 0.1% Ophthalmic Solution 08/14/2017 - 08/27/2017 Pro vider: Scott Brady MD, FACS Diagnosis: Other chronic allerg ic conjunctivitis One drop twice a day in both eyes as needed Patanol 0.1% Ophthalmic Solution 08/13/2017 - 08/14/2017 Pro vider: Scott Brady MD FACS Diagnosis: Other chronic allerg ic conjunctivitis as needed Restasis 0.05% Ophthalmic Emulsion 08/07/2017 - 09/09/2018 P rovider: Scott Brady MD, FACS Diagnosis: Dry eye syndrome of bilateral lacrimal glands One drop twice a day in both eyes Pazeo 0.7% Ophthalmic Solution 08/07/2017 - 10/22/2017 Provi mariana: Scott Brady MD, FACS Diagnosis: Other chronic allerg ic conjunctivitis One drop in each eye in the morning Patanol 0.1% Ophthalmic Solution 08/06/2017 - 08/13/2017 Pro vider: Diagnosis: Restasis 0.05% Ophthalmic Emulsion 08/06/2017 - 08/07/2017 P sekouder: Scott Brady MD, FACS Diagnosis: Dry eye syndrome of bilateral lacrimal glands One drop twice a day in both eyes Pazeo 0.7% Ophthalmic Solution 08/06/2017 - 08/07/2017 Provi mariana: Scott Brady MD, FACS Diagnosis: Other chronic allerg ic conjunctivitis One drop in each eye in the morning Medications Administered Includes: Administered Medications in patient's chartNo Administered Medications Recorded Vital Signs Includes: Vital Signs from 02/02/2020 through 02/01/2021No Vital Signs Recorded For Specified Dates Results Includes: Results from 02/02/2020 through 02/01/2021No Results Recorded For Specified Dates History of Present Illness History of Present Illness not supported for this document typeNo History of Present Illness Recorded Social History Description Last Updated Tobacco non-user 04/01/2020 No consumption of alcohol 08/19/2019 No tobacco use 08/19/2019 Not a current smoker 08/19/2019 Not using drugs 08/19/2019 Smoking status : Never smoker 08/19/2019 Never smoked 06/07/2018 Procedures and Surgical History Includes: Procedures from 02/02/2020 through 02/01/2021 Procedures Code Diagnosis Performing Provider Service Location Service Date Intermediate Eye Exam Established Patient [address] Sicca syndrome with other organ involvement, Other [facility] (current) drug therapy, Type 2 diabetes mellitus without complications, prison (current) use of oral hypoglycemic drugs Scott Brady MD, FACS Scott Brady MD [facility] 04/01/2020 Surgical History Last Updated Surgical / procedural history Hysterectomy 2010 10/22 Medical History Includes: Medical History in patient's chart Description Last Updated History of the retina was abnormal 04/01/2020 History of diabetes mellitus Dx: [address] Leal; A1c: did not know today; FBS: 100 two days ago 10/05/2020 History of type 2 diabetes mellitus 08/19/2019 Recent change in medical history Diabetes Type 2 07/25 Not currently wearing eyeglasses 08/19/2019 Reported medical history Dislocated Knee, Anxiety, Sj ogrens Syndrome 06/07/2018 History of asthma 10/22/2017 History of hyperlipidemia 10/22/2017 History of thyroid disorder 10/22/2017 Family History Includes: Family History in patient's chart Description Last Updated Family history of arthritis 08/19/2019 Family history of cataract 08/19/2019 Family history of stroke/cerebrovascular accident 07/25 Paternal history of hypertension 08/19/2019 Review of Systems Review of Systems not supported for this document typeNo Review of Systems Recorded Mental Status Mental Status not supported for this document type Description Oriented to time, place, and person Anxiety Functional Status Functional Status not supported for this document typeNo Functional Status Recorded Physical Exam Physical Exam not supported for this document typeNo Physical Exam Recorded Immunizations Includes: Immunizations in patient's chartNo Immunizations Recorded Allergies Includes: Active, inactive, and resolved Allergies Substance Type Reaction Onset Date - Time Resolved Date - Ti me Status Sulfa Antibiotics Allergy 08/06/2017 - 12:00AM Active Penicillin G Benzathine Allergy 08/06/2017 - 12:00AM Active Encounters Includes: Encounters from 02/02/2020 through 02/01/2021 Encounter Provider Location Date Check-In Time Check-Out Time D iagnosis 6 Month follow up with testing Scott Brady MD, CHRISTOS Brady MD [facility] 10/05/2020 8:12AM 9:10AM Cataract Senile Nuclear, Dry Eye Syndrome, Taking Medication For Diabetes Long-term Use of Oral Hypoglycemics, Sicca Syndrome with Organ Involvement, Diabetes Mellitus Type 2 Without Complication, Correction Use of Other Medications 8 Month Follow-Up Scott Brady MD, CHRISTOS Brady MD [facility] 04/01/2020 9:43AM 10:46AM Cataract Senile Nucl ear, Dry Eye Syndrome, Taking Medication For Diabetes Long-term Use of Oral Hypoglycemics, Sicca Syndrome with Organ Involvement, Diabetes Mellitus Type 2 Without Complication, 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 Use of Other Medications Rx Refills/Changes Scott Brady MD, FACS 02/23/2020 01/08/2020 10:10AM 01/08/2020 11:59PM Insurance Includes: Active Insurance Policies Plan Name Member ID Group # Subscriber Relationship Effective Da deena 1 - Medicare Part B [facility] ([facility]) [id number] Lana jarvis Self 2 - [employer] /PRIOR AUTHS NEEDED [id number] Elizabeth Reeves Self Advance Directives Includes: Current Advance DirectivesNo Advance Directives Recorded Health Concerns Includes: Active Health ConcernsNo Active Health Concerns Recorded Goals Includes: Active GoalsNo Active Goals Recorded Interventions Includes: Interventions for active GoalsNo Interventions Recorded Evaluations & Outcomes Includes: Evaluations & Outcomes for active GoalsNo Outcomes Recorded
--- OUTSIDE RECORDS SUMMARY | 2021-02-10 10:15 | CCD | Continuity of Care Document ---
Author Author Lana CORDERO Organization Unknown Address [address] [place] [address] Phone [phone] Care Team Providers Care Cycle Director Name Role Phone Jovany Leal M.D. AUTM [phone] Problems Active Problems Provider Date Dizziness Aubrey [...] lb BMI (Body Mass Index) 23.2 kg/m2 Alicia Body Weight 120 lb Results Test Acquired Date Facility Test Result H/L Range Note Hemoglobin A1c 01/07/2021 [facility] Hemoglobin A1c 6.1 % Normal 1 Estimated Average Glucose 128 mg/dL High 60-110 CBC With Differential 01/07/2021 [facility] White Blood Count 8.8 10 Normal 4.0-10.0 [...] 36.0-66.0 Lymph % 31.9 % Normal 24.0-44.0 [place] % 9.6 % High 2.0-8.0 Eos % 2.9 % Normal 0.0-3.0 Baso % 1.2 % High 0.0-1.0 Immature Granulocyte % 0.6 % Normal 0-3.0 Nucleated Red Blood Cell % 0.0 % Normal 0-0 Neutrophils # 4.7 10 Normal 1.5-8.5 Lymph # 2.8 10 Normal 1.5-5.0 [place] # 0.9 10 High 0.0-0.8 Eos # 0.3 10 Normal 0.0-0.5 Baso # 0.1 10 Normal 0.0-0.2 Laboratory test finding 01/07/2021 [facility] Erythrocyte Sedimentation Rate 9 mm/hr Normal 0-30 1 REFERENCE RANGES: <=5.6% NORMAL 5.7-6.4% SUGGESTS IMPAIRED GLUCOSE META BOLISM/PREDIABETIC >= 6.5% ABNORMAL Procedures Date Code Description Status 01/08/2021 63284 MRI Spine Cervical W/O Contrast Completed 01/08/2021 97033 MRI Spine Cervical W/O Contrast Completed 01/08/2021 27117 MRI Brain W/O Contrast Completed 01/08/2021 94280 MRI Brain W/O Contrast Completed 01/04/2021 32074 Office/Outpatient New Moderate M DM 45-59 Minutes Completed Medical Devices Description No Information Available Encounters Type Date Location Provider Dx Diagnosis Office Visit 01/04/2021 12:30p [place] M.[place] R25.8 Other abnormal involuntary movements M54.2 Cervicalgia M62.838 Other muscle spasm M62.9 Disorder of muscle, unspecif ied Assessments Date Code Description Provider 01/08/2021 M62.838 Other muscle spasm Ubaldo Colleen, PeggyDPriyanka 01/08/2021 M62.838 Other muscle spasm MRI 01/08/2021 R25.8 Other abnormal involuntary movem ents Ubaldo ColleenPeggy quirozDPriyanka 01/08/2021 R25.8 Other abnormal involuntary movem ents MRI 01/08/2021 M54.2 Cervicalgia Ubaldo ColleenPeggy quirozD Priyanka 01/08/2021 M54.2 Cervicalgia MRI 01/04/2021 R25.8 Other abnormal involuntary movem ents Lyndsay ColleenElaine quiroz 01/04/2021 M54.2 Cervicalgia LyndsayPeggy Sheffield 01/04/2021 M62.838 Other muscle spasm Lyndsay ColleenElaine quiroz 01/04/2021 M62.9 Disorder of muscle, unspecified Lyndsay Macias M.D. Plan of Treatment Future Appointment(s):* 02/14/2021 9:45 am - EEG at [facility] * 01/12/2021 8:30 am - Ubaldo Macias M.D. at [facility] * 02/01/2021 1:00 pm - Sheree Loomis P.A.-C. at [facility] Functional Status Description No Information Available Mental Status Description No Information Available Referrals Description No Information Available
--- OUTSIDE RECORDS SUMMARY | 2021-02-10 10:15 | CCD | Continuity of Care Document ---
Author Author Lana LOOMIS P.A.-C. Organization Unknown Address [address] [place] [address] Phone [phone] Care Team Providers Care Import And Export Clerk Name Role Phone Jovany Leal M.D. AUTM [phone] Problems Active Problems Provider Date Dizziness Aubrey [...] 50 and 75 mcg every other day. Aubrye Iyer M.D. Immunizations Description No Information Available Vital Signs Date Vital Result Comment 02/01/2021 6:14am BP Systolic 150 mmHg BP Diastolic 80 mmHg Heart Rate 84 /min Respiratory Rate 16 /min 10/22/2017 8:54am BP Systolic 156 mmHg BP Diastolic 78 mmHg Heart Rate 84 /min Respiratory Rate 12 /min Height 64 inches 5'4" Weight 135.00 lb BMI (Body Mass Index) 23.2 kg/m2 Morgan Body Weight 120 lb Results Test Acquired Date Facility Test Result H/L Range Note Hemoglobin A1c 01/07/2021 [facility] Hemoglobin A1c 6.1 % Normal 1 Estimated Average Glucose 128 mg/dL High 60-110 CBC With Differential 01/07/2021 [facility] White Blood Count 8.8 10 Normal 4.0-10.0 [...] 36.0-66.0 Lymph % 31.9 % Normal 24.0-44.0 Amite % 9.6 % High 2.0-8.0 Eos % 2.9 % Normal 0.0-3.0 Baso % 1.2 % High 0.0-1.0 Immature Granulocyte % 0.6 % Normal 0-3.0 Nucleated Red Blood Cell % 0.0 % Normal 0-0 Neutrophils # 4.7 10 Normal 1.5-8.5 Lymph # 2.8 10 Normal 1.5-5.0 Amite # 0.9 10 High 0.0-0.8 Eos # 0.3 10 Normal 0.0-0.5 Baso # 0.1 10 Normal 0.0-0.2 Laboratory test finding 01/07/2021 [facility] Erythrocyte Sedimentation Rate 9 mm/hr Normal 0-30 Comprehensive Metabolic Profil 01/07/2021 [facility] Glucose, Fasting 128 mg/dL High 70-100 Blood [...] 1.3 Normal 1.2-2.2 Serum Protein Electrophoresis 01/07/2021 [facility] Albumin % 65.0 % Normal 55.8-66.1 Wwgpl-6-Ueedynma % 3.3 % Normal 2.9-4.9 Rcune-5-Cfqngxazs % 10.2 % Normal 7.1-11.8 Hjki-8-Qdaqgnvcg % 6.7 % Normal 4.7-7.2 Ixdh-7-Ntdhgpfqt % 4.8 % Normal 3.2-6.5 Gamma Globulin % 10.0 % Low 11.1-18.8 Albumin 4.88 GM/DL Normal 3.29-5.55 Acmba-1-Bpmwxefnq 0.25 GM/DL Normal 0.17-0.41 Bgion-4-Notyihqnm 0.77 GM/DL Normal 0.42-0.99 Iyby-9-Dcfxbqavh 0.50 GM/DL Normal 0.28-0.60 Dhlr-8-Cyelunocp 0.36 GM/DL Normal 0.19-0.55 Gamma Globulins 0.75 GM/DL Normal 0.65-1.58 Total Protein 7.4 GM/DL Normal 6.4-8.2 Spep Interpretation SEE COMMENT Normal 3 Spep Pathologist Review REV'D BY Jocelyne SORTO Normal Vitamin B12 & Folate 01/07/2021 [facility] Vitamin B12 Level 572 pg/mL Normal 4 Folate 23.5 NG/ML Normal 5 Laboratory test finding 01/07/2021 [facility] Syphilis NONREACTIVE Normal Nonreactive 6 Rheumatoid Factor Quant < 10.0 IU/mL Normal <15.0 7 Vitamin E Level 01/07/2021 [facility] Vitamin E(Alpha Tocopherol) 10.6 mg/L Normal 7.0-25.1 8 Vitamin E(Gamma Tocopherol) 0.9 mg/L Normal 0.5-5.5 9 Laboratory test finding 01/07/2021 [facility] Vitamin B1 Level Whole Blood 137.4 nmol/L Normal 66.5-200.0 10 Vitamin B6,Pyridoxal Phosphate 17.4 ug/L Normal 2.0-32.8 11 Antinuclear Antibodies 01/07/2021 [facility] Antinuclear Antibodies Direct Positive Abnormal Negative Anti Double Strand-Dna AB <1 IU/mL Normal 0-9 12 VALANCE CUTTER Antibodies 1.0 AI High 0.0-0.9 Mckeon Antibodies <0.2 AI Normal 0.0-0.9 Sjogren's Anti SS-A <0.2 AI Normal 0.0-0.9 Sjogren's Anti SS-B <0.2 AI Normal 0.0-0.9 Keisha Comment (SEE NOTE) Normal . 13 Laboratory test finding 01/07/2021 [facility] Lead Blood Adult <1 g/dL Normal 0-4 [...] Little GFR Left ESRD GFR <15 on RELISH BLENDER 3 NO M-SPIKE(S)NOTED. 4 VITAMIN B12 NORMAL RANGE NORMAL 247 - 911 PG/ML INDETERMINATE 211 - 246 PG/ML DEFICIENT LESS THAN 211 PG/ML 5 FOLATE NORMAL RANGE NORMAL GREATER THAN 5.4 NG/ML INDETERMINATE 3.4-5.4 NG/ML DEFICIENT LESS THAN 3.4 NG/ML 6 note:<nlbl:demographic_chang ed> 7 note:<nlbl:demographic_chang ed> 8 This test was developed and its performance characteristics determined by [facility]. It has not been cleared or approved by the Food and Drug Administration. 9 This test was developed and its performance characteristics determined by [email or web address]. It has not been cleared or approved by the Food and Drug Administration. Reference intervals for alpha and gamma-tocopherol determined from National Health and Nutrition Examination Survey, 4600-4634. Individuals with alpha-tocopherol levels less than 5.0 mg/L are considered vitamin E deficient. 10 This test was developed and its performance characteristics determined by [facility]. It has not been cleared or approved by the Food and Drug Administration. 11 This test was developed and its performance characteristics determined by [facility]. It has not been cleared or approved by the Food and Drug Administration. 12 Negative <5 Equivocal 5 - 9 Positive >9 13 . Autoantibody Disease Association Condition Frequency -------- --------- Antinuclear Antibody, SLE, mixed connective Direct (KEISHA-D) tissue diseases -------- --------- dsDNA SLE 40 - 60% -------- --------- Chromatin Drug induced SLE 90% SLE 48 - 97% -------- --------- SSA (Ro) SLE 25 - 35% Sjogren's Syndrome 40 - 70% Lupus 100% -------- --------- SSB (La) SLE 10% Sjogren's Syndrome 30% ------- --------- Sm (anti-Mckeon) SLE 15 - 30% ------- --------- VALANCE CUTTER Mixed Connective Tissue Disease 95% (U1 nRNP, [...] developed and its performance characteristics determined by [facility]. It has not been cleared or approved by the Food and Drug Administration. Detection Limit = 5 16 This test was developed and its performance characteristics determined by [facility]. It has not been cleared or approved by the Food and Drug Administration. Environmental Exposure: <15.0 Occupational Exposure: ZANA - Inorganic Mercury: 15.0 . Detection Limit = 1.0 Performed at: [address] [id number] Dairy Manufacturing Technologist: Flaco Waite MD, Phone: [phone] Performed at: RN - [facility] [address] [id number] Dairy Manufacturing Technologist: Angie Torres MD, Phone: [phone] Procedures Date Code Description Status 02/01/2021 70026 Office/Outpatient Established Mo d MDM 30-39 Min Completed 01/12/2021 46954 Nerve Conduction 9-10 Studies Co mpleted 01/12/2021 62563 Needle Electromyogra phy Non Extremity Done With Nerve Conduction Completed 01/12/2021 83700 Needle Electromyography Complete , Five Or More Muscles Studied Completed 01/08/2021 70036 MRI Spine Cervical W/O Contrast Completed 01/08/2021 54270 MRI Spine Cervical W/O Contrast Completed 01/08/2021 39884 MRI Brain W/O Contrast Completed 01/08/2021 68037 MRI Brain W/O Contrast Completed 01/04/2021 34500 Office/Outpatient New Moderate M DM 45-59 Minutes Completed Medical Devices Description No Information Available Encounters Type Date Location Provider Dx Diagnosis Office Visit 02/01/2021 9:30a Main office - [place] Miguel Stahl.A.-C. G25.0 Essential tremor M54.2 Cervicalgia M47.892 Other spondylosis, cervical region Office Visit 01/04/2021 12:30p Main office - [place] Lyndsay Macias M.D. R25.8 Other abnormal involuntary movements M54.2 Cervicalgia M62.838 Other muscle spasm M62.9 Disorder of muscle, unspecif ied Assessments Date Code Description Provider 02/01/2021 G25.0 Essential tremor Miguel Rojas.A.-C. 02/01/2021 M54.2 Cervicalgia Sheree Loomis P.A.-C. 02/01/2021 M47.892 Other spondylosis, cervical lucius on Sheree Loomis P.A.-C. 01/12/2021 G56.00 Carpal tunnel syndrome, unspecif ied upper limb Ubaldo Macias M.D. 01/12/2021 M54.12 Radiculopathy, cervical region A bdlila Macias M.D. 01/12/2021 M54.2 Cervicalgia Ubaldo Colleen, M.D . 01/12/2021 R20.2 Paresthesia of skin Ubaldo Colleen, [...] 01/04/2021 M62.9 Disorder of muscle, unspecified Lyndsayus Colleen M.D. Plan of Treatment Future Appointment(s):* 07/27/2021 11:15 am - Sheree Loomis P.A.-C. at [facility] * 02/14/2021 9:45 am - EEG at [facility] 02/01/2021 - Sheree Loomis P.A.-C.* G25.0 Essential [...]
--- OUTSIDE RECORDS SUMMARY | 2021-02-10 10:16 | CCD | Continuity of Care Document ---
Author Author Lana QUINTANILLA MD Organization Unknown Address [address] [place] [address] Phone [phone] Care Team Providers Care Mechanical Assembler Name Role Phone Jovany Leal MD [facility] [phone] Problems Description No Information Available Social History Type Date Description Comments Sex Unknown ETOH Use Denies alcohol use Tobacco Use Start: Unknown Denies Smoking Smoking Status Reviewed: 10/14/19 Denies Smoking Allergies and adverse reactions Active Allergies Criticality Reaction | Severity Comments Date sulfa drugs Unable to assess criticality 08/07/2019 Penicillin V Unable to assess criticality 08/07/2019 Medications Active Medications SIG Qnty Indications Ordering Provide r Date Euflexxa 20mg/2ML Soln Prefill Syr wilmer marylu euflexxa #1 07/29/20 sbf/bc marylu #2 08/05/20 sbf/sh, marylu knee #3 08/17/20 sbf/lashanda Leonel Stovall MD 01/09/2020 Hydrocodone-Acetaminophen 5-325mg Tablets 1 tab every 4 hours for as needed post op pain. (please do not fill until 01/28/2020) 20tabs Rod Quintanilla MD 0 Levofloxacin 750mg Tablets Take One Tablet By Mouth Every Day Unknown Xerostomia Relief Reno Solution Reno 1 Dose (2 Sprays) Into The Mouth 3-4 Times Per Day Or as Needed Unknown Doxycycline Monohydrate 100mg Tabl ets Take [...] as Directed For 10 Days Unknown Nystatin 756758Qovy/ML Suspension Take 5ML By Mouth Four Times A Day Unknown Levocetirizine Dihydrochloride 5mg Tablets Take One Tablet By Mouth Every Day In The Evening Unknown Benzonatate 200mg Capsules Take One Capsule [...] BMI (Body Mass Index) 24.0 kg/m2 Results Description No Information Available Procedures Date Code Description Status 08/17/2020 Inject/Drain Joint/Bursa Major C ompleted 08/05/2020 07007 Inject/Drain Joint/Bursa Major C ompleted 07/29/2020 42622 Office/Outpatient Established [facility] 10-19 Min Completed 07/29/2020 99505 Inject/Drain Joint/Bursa Major C ompleted 07/08/2020 01152 Phone Evaluation/Management By Miguel magdaleno 5-10 Mins Completed 07/01/2020 62093 MRI Lower Extremity Any Joint Co mpleted 07/01/2020 19917 MRI Lower Extremity Any Joint Co mpleted Medical Devices Description No Information Available Encounters Type Date Location Provider Dx Diagnosis Office Visit 08/17/2020 10:00a Jason Stovall MD M17.0 Bilateral primary osteoarthritis of knee Office Visit 08/05/2020 10:00a Jason Stovall MD M17.0 Bilateral primary osteoarthritis of knee Office Visit 07/29/2020 10:30a Jason Stovall MD M17.0 Bilateral primary osteoarthritis of knee M71.21 Synovial cyst of popliteal s pace [Vidales], right knee Office Visit 07/08/2020 1:00p Jason Stovall MD M17.11 Unilateral primary osteoarthritis, right knee Assessments Date Code Description Provider 08/17/2020 M17.0 Bilateral primary osteoarthritis of knee Leonel Stovall MD 08/05/2020 M17.0 Bilateral primary osteoarthritis of knee Leonel Stovall MD 07/29/2020 M17.0 Bilateral primary osteoarthritis of knee Leonel Stovall MD 07/29/2020 M71.21 Synovial cyst of popliteal space [Vidales], right knee Leonel Stovall MD 07/08/2020 M17.11 Unilateral primary osteoarthriti s, right knee Leonel Stovall MD 07/01/2020 M25.561 Pain in right knee Leonel dillard MD 07/01/2020 M25.561 Pain in right knee MRI Plan of Treatment 07/29/2020 - Leonel Stovall MD* M17.0 Bilateral primary osteoarthritis of knee * M71.21 Synovial cyst of popliteal space [Vidales], right knee* Follow up:* PRN Functional Status Description No Information Available Mental Status Description No Information Available Referrals Refer to Dr Reason for Referral Status Appt Date Rod Quintanilla MD Bilateral knee Euflexxa- No authorization req. Passing to scheduling. Created [address] [place] [address] [phone] Rod Quintanilla MD Right knee Euflexxa-No autho rization req. Passing to scheduling. Created [facility] [place] [address] [phone]
--- OUTSIDE RECORDS SUMMARY | 2021-02-10 10:16 | CCD ---
Author Author [facility] Organization [facility] Address Unknown Phone Unavailable Care Team Providers Care Interior Assemblies Installer Name Role Phone Jovany Leal Unavailable PROBLEMS Type Condition ICD9-CM Code [id number] Code Onset Dates Condition S tatus W/U Status Risk SNOMED Code Notes Problem Moderate persistent asthma with acute exacerbation J45.41 Active confirmed 452039205612505 Problem Vertigo R42 Active confirmed 396479749 Problem Tremor R25.1 Active confirmed 21265218 Problem Allergic rhinitis due to pollen, unspecified seasonality J30.1 Active confirmed 36535781 Problem Anxiety F41.9 Active confirmed 82651581 Problem SHEILA positive R76.8 Active confirmed 8037754 01 Problem Allergic rhinitis due to fungal spores, unspecif ied seasonality J30.89 Active confirmed 69718337 Problem Acquired absence of both cervix and uterus Z90.710 Active confirmed 069840691 Problem Sinusitis, unspecified chronicity, unspecified location J32.9 Active confirmed 87917769 Problem Vaginal atrophy N95.2 Active confirmed 2971 42640 Problem Dry eye syndrome, unspecified laterality H04.129 Active confirmed 82549842 Problem Sinusitis chronic, frontal J32.1 Active confirmed 57766779 Problem Dysphagia, unspecified type R13.10 Active confirmed 47659777 Problem Moderate persistent asthma without complication J4 5.40 Active confirmed 432340484 Problem Vasomotor symptoms due to menopause N95.1 Acti ve confirmed 159738030 Problem Thrush B37.0 Active confirmed 38402767 Problem Other hyperlipidemia E78.4 Active confirmed 46743317 Problem Elevated fasting glucose R73.01 Active confirmed 80139525 Problem Restless legs syndrome G25.81 Active confirmed 49556956 Problem Constipation in female K59.00 Active confirmed 76387571 Problem Unspecified asthma, uncomplicated J45.909 Active confirmed 39742711 Problem Fat pad E65 Active confirmed 647975585 Problem Gastro-esophageal reflux disease without esophagitis K21.9 Active confirmed 712909916 Problem Midline cystocele N81.11 Active confirmed 42 9175617 Problem Perimenopausal vasomotor symptoms N95.1 Active confirmed 347073419 Problem Dyspareunia in female N94.10 Active confirmed 23767564 Problem Impaired fasting glucose R73.01 Active confirmed 362128142 Problem Stress incontinence in female N39.3 Active confirm ed 59384121 Problem Essential hypertension I10 Active confirmed 8164608 Problem 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, 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 Active confirmed 5714046 Problem Urethrocele N81.0 Active confirmed 18187769 Problem Sjogren''s syndrome, with unspecified organ involvement M35.00 Active confirmed 56417865 Problem Internal hemorrhoids K64.8 Active confirmed 43619078 Problem Essential (primary) hypertension I10 Active conf irmed 56100978 Problem Lymphadenopathy of head and neck region R59.0 Active confirmed 749927510 Problem Vitamin D deficiency, unspecified E55.9 Active con firmed 71319922 Problem 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 Active confirmed 38491783 Problem Abdominal pain, right lower quadrant R10.31 Act angela confirmed 785726621 Problem Chondromalacia of patella, 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 Active confirmed 76128939 Problem Mixed hyperlipidemia E78.2 Active confirmed 394963721 Problem Hypothyroidism, unspecified E03.9 Active confirmed 30497085 Problem Other chronic pain G89.29 Active confirmed 8 0880021 Problem Rectocele N81.6 Active confirmed 4141454 ALLERGIES Allergen (clinical drug ingredient) Drug/Non Drug Allergy do cumented on EMR Reaction Allergy Type Onset Date Status Penicillin (For Allergies Use Only) Hives Drug Allerg y Active bees Anaphylaxis Non Drug Allergy Active pravachol body aches Non Drug Allergy Active sulfa hives Non Drug Allergy Active Parafon Forte DSC RASH Drug Allergy Activ e ENCOUNTERS from 1965 to 2020-11-23 Encounter Location Date Provider Diagnosis [facility] Marky Mila RASHAWNYOMI [phone] [place] [address] Oct, Jovany Leal Sjogren''s syndrome, with unspecified or dionna involvement M35.00 IMMUNIZATIONS Vaccine Route Administration Date [...] Notes Total Score: 0 Interpretation: Alcohol Education Cheondoism: Question Answer Notes Cheondoism No samaritan beliefs that would impact health care. Drug [...] 10 years updated 10/22/2020 REASON FOR REFERRAL from 1965 to 2020-11-23 Reason please eval and treat. is [facility] of [facility], last seen 2 yrs ago. Diagnosis 1 Sjogren''s syndrome, with un specified organ involvement (M35.00) Referral Organization [facility] Referring Provider First Name Jovany Referring Provider Last Name Leal Referring Provider Specialty Family Medicine Referred Provider Sheree Loomis Referred Provider Specialty Neurology Referral Priority Routine Referral Appointment Date 2021-01-04 General Notes Mahogany Arana 11/19/2020 6: 42:41 AM > Ref faxPalomo Alanis 11/23/2020 7:36:27 AM > appt given and pt is aware. Notice scanned in. VITAL SIGNS No information MEDICATIONS Medication SIG [...] as needed Inhalation every 4 hrs Active Sucralfate 1 GM 1 tablet on an empty stomach Orally four times daily Not-Taking Vitamin D 1000 UNIT 2 tablet Orally bid Active Flovent HFA 220 MCG/ACT 2 puff Inhalation Twice a day Active Singulair 10 mg 1 tab Orally Once a day Active Hydroxychloroquine Sulfate 200 MG 1 tab Orally bid Active Nebulizer/Tubing/Mouthpiece as directed Sep, Active Synthroid 50 MCG 1 tab orally alternating with 75mcg every other day Active Restasis 0.05 % 1 into affected eye Ophthalmic qd Active One Touch Delica 33 gauge as directed Aug, Active Olopatadine HCl 0.1 % 1 drop into affected eye Ophthalmic Twice a day Active OneTouch Verio w/Device as directed Aug, Active Levothyroxine Sodium 75 MCG TAKE ONE TABLET BY MOUTH E VERY OTHER DAY ALTERNATING WITH 50MCG orally Daily Active PROCEDURES No Information RESULTS No Results REASON FOR VISIT referral MEDICAL (GENERAL) HISTORY Type Description Date Medical [...] for IV and bloodwork 09/22/17 Hospitalization History [facility] hospitalization 05/06/2020 Goals Section No Information Health Concerns No Information MEDICAL EQUIPMENT No Information MENTAL STATUS No Information FUNCTIONAL STATUS No Information ASSESSMENTS Encounter Date Diagnosis Assessment Notes Treatment Notes Treatm ent Clinical Notes Oct, Sjogren''s syndrome, with un specified organ involvement (ICD-10 - M35.00) PLAN OF TREATMENT Medication Medication Name Sig Start Date Stop Date OneTouch Verio w/Device as directed Aug, Levothyroxine Sodium 75 MCG TAKE ONE TABLET BY MOUTH E VERY OTHER DAY ALTERNATING WITH 50MCG orally Daily Olopatadine HCl 0.1 % 1 drop into affected eye Ophthalmic Twice a day One Touch Delica 33 gauge as directed Aug, Vitamin D 1000 UNIT [...] needed I nhalation Three times a day Synthroid 50 MCG 1 tab orally alternating with 75mcg every other day Hydroxychloroquine Sulfate 200 MG 1 tab [...] 1 tablet Orally for 5 day(s) Sep, Referrals Referral Date Details 2021-01-04 2021-01-04, please eval and treat. is patient of Neuro practice, last seen 2 yrs ago., Sheree Loomis Next Appt Details Provider Name:Jovany Leal, 2021-02-15 10 :30:00 AM, [address] , , [place], [address], Insurance Providers Payer Name Payer Address Payer Phone Insured Name Patient Relati onship to Insured Coverage Start Date Coverage End Date R [facility] [address] [address] [facility] [phone] ELHAM VERAS MEDICARE Part A and B [address] [facility] [id number] ELHAM VERAS self
--- OUTSIDE RECORDS SUMMARY | 2021-02-10 10:16 | CCD ---
Author Author Scott Brady MD [facility] Organization Scott Brady MD [facility] Address [address] [place] [id number] Phone Care Team Providers Care Assistant Scientist Name Role Phone Noni Tate O.D. Unavailable [phone] Jose Antonio LAMB, Scott SHER Unavailable [phone] Trina Malone PP [phone] Nancy Hatch MD Unavailable [phone] Reason for Referral No Reason for Referral Recorded Problems Includes: Active, inactive, and resolved Problems All Visits Onset Date - Time Resolved Date - Time Provider Co ndition Status Usp Use of Other Medications 06/07/2018 - 12:00AM Scott Brady MD, FACS Active Sicca Syndrome with Organ Involvement 06/07/2018 - 12:00AM Scott Brady MD, CHRISTOS Active Cataract Senile Nuclear 10/22/2017 - 12:00AM [facility] DO Active Conjunctivitis Acute Atopic 08/06/2017 - 12:00AM Unknown - Unkno Ameya Kirkpatrick DO Resolved Conjunctivitis Chronic Allergic 08/06/2017 - 12:00AM Scott Bardy MD, FACS Active Dry Eye Syndrome 08/06/2017 [...] ng with Scott Brady MD, FACS 10/05/2020 alf use of other medications 6 Month follow [...] Follow-Up with Scott garzon MD, FACS 04/01/2020 terminal 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 8 Month Follow-Up [...] Follow-Up with Scott Brady MD, FACS 04/01/2020 alf use of other medications TESTING - VISUAL FI ELD & OCT with Scott Brady MD, FACS 01/08/2020 Sicca syndrome with organ involvement TESTING - VISUAL FIELD & OCT with cSott Brady MD, FACS 01/08/2020 Dry eye syndrome 7 Month Follow-Up with Scott garzon MD, FACS 08/19/2019 terminal 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 7 Month Follow-Up [...] Follow-Up with Scott Brady MD, FACS 08/19/2019 terminal 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 TESTING - VISUAL FI ELD & OCT with Scott Brady MD, FACS 03/10/2019 Sicca syndrome with organ involvement TESTING - VISUAL FIELD & OCT with Scott Brady MD, FACS 03/10/2019 Dry eye syndrome 6 Month Follow-Up with Scott garzon MD, FACS 12/03/2018 alf use of other medications 6 Month Follow-Up w ith Scott Brady MD, FACS 12/03/2018 Nuclear senile cataract 6 Month Follow-Up with Scott Bermudez MD, FACS 12/03/2018 Sicca syndrome with organ involvement 6 Month Follow-U p with Scott Brady MD, FACS 12/03/2018 alf use of other medications TESTING - VISUAL FI ELD & OCT with Scott Brady MD, FACS 07/10/2018 Sicca syndrome with organ involvement TESTING - VISUAL FIELD & OCT with Scott Brady MD, FACS 07/10/2018 Chronic allergic conjunctivitis 9 Month Follow-Up with Scott Brady MD, FACS 06/07/2018 Dry eye syndrome 9 Month Follow-Up with Scott garzon MD, FACS 06/07/2018 alf use of other medications 9 Month Follow-Up w ith Scott Brady MD, FACS 06/07/2018 Nuclear senile cataract 9 Month Follow-Up with Scott Bermudez MD, FACS 06/07/2018 Sicca syndrome with organ involvement 9 Month Follow-U p with Scott Brady MD, FACS 06/07/2018 terminal 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 TESTING - VISUAL [...] 6 Week Follow-Up with Scott Patel MD, [facility] 09/17/2017 Chronic allergic conjunctivitis 6 Week Follow-Up with Scott Brady MD, [facility] 09/17/2017 Dry eye syndrome 6 Week Follow-Up with Scott mchugh MD, [facility] 09/17/2017 Acute atopic conjunctivitis NEW PATIENT WITH REFERRAL with Scott Brady MD, FACS 08/06/2017 Chronic allergic conjunctivitis NEW PATIENT WITH REFER RAL with Scott Holley MD, [facility] 08/06/2017 Dry eye syndrome NEW PATIENT WITH REFERRAL with Scott Brady MD, FACS 08/06/2017 Vitreous degeneration NEW PATIENT WITH REFERRAL [facility] Scott Brady MD, [facility] 08/06/2017 Instructions Instructions not supported for this document typeNo Instructions Recorded Medical Equipment - Implanted Devices Includes: Current and historical DevicesNo Medical Equipment Recorded Medications Includes: Current and historical Medications Current Medications (continue as prescribed) Restasis 0.05% Ophthalmic Emulsion 02/23/2020 Provi mariana: Scott Brady MD, [facility] Diagnosis: Dry eye syndrome of bilateral lacrimal [...] 0.05% Ophthalmic Emulsion 08/06/2017 - 08/07/2017 P rovider: Scott Brady MD, FACS Diagnosis: Dry eye syndrome of bilateral lacrimal glands One drop twice a day in both eyes Pazeo 0.7% Ophthalmic Solution 08/06/2017 - 08/07/2017 Provi mariana: Scott Brady MD FACS Diagnosis: Other chronic allerg ic conjunctivitis One drop in each eye in the morning Medications Administered Includes: Administered Medications in patient's chartNo Administered Medications Recorded Vital Signs Includes: Vital Signs from 11/17/2019 through 11/16/2020No Vital Signs Recorded For Specified Dates Results Includes: Results from 11/17/2019 through 11/16/2020No Results Recorded For Specified Dates History of [...] Procedures and Surgical History Includes: Procedures from 11/17/2019 through 11/16/2020 Procedures Code Diagnosis Performing Provider Service Location Service Date Intermediate Eye Exam Established Patient 444[address] Sicca syndrome with other organ involvement, Other fdc (current) drug therapy, Type 2 diabetes mellitus without complications, alf (current) use of oral hypoglycemic drugs Scott Brady MD, CHRISTOS Brady MD [facility] 04/01/2020 [facility], with interpretation and report 27112 Sicca syndrome with other organ involvement, Other fdc (current) drug therapy Scott Brady MD, CHRISTOS Brady MD [facility] 01/08/2020 Visual Field 81824 Sicca syndrome with other organ involvement, 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 Scott Brady MD, CHRISTOS Brady MD [facility] 01/08/2020 Surgical History Last Updated Surgical / procedural history Hysterectomy 10/22 Medical History Includes: Medical History in [...] - 12:00AM Active Encounters Includes: Encounters from 11/17/2019 through 11/16/2020 Encounter Provider Location Date Check-In Time Check-Out Time D iagnosis 6 Month follow up with testing Scott Brady MD, FACS Scott Brady MD [facility] 10/05/2020 8:12AM 9:10AM Cataract Senile Nuclear, Dry Eye Syndrome, Taking Medication For Diabetes Long-term Use of Oral Hypoglycemics, Sicca Syndrome with Organ Involvement, Diabetes Mellitus Type 2 Without Complication, 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 8 Month Follow-Up Scott Brady MD, FACS Scott Brady MD [facility] 04/01/2020 9:43AM 10:46AM Cataract Senile Nucl ear, Dry Eye Syndrome, Taking Medication For Diabetes Long-term Use of Oral Hypoglycemics, Sicca Syndrome with Organ Involvement, Diabetes Mellitus Type 2 Without Complication, Usp Use of Other Medications Rx Refills/Changes Scott Brady MD, CHRISTOS 02/23/2020 01/08/2020 10:10AM 01/08/2020 11:59PM TESTING - VISUAL FIELD & OCT Scott Brady MD, CHRISTOS Dillon MD [facility] 01/08/2020 12:51PM 1:58PM Usp Use of Other Medications, Sicca Syndrome with Organ Involvement VISUAL FIELD 10-2 Scott Brady MD, FACS Scott Brady MD [facility] 01/08/2020 12:48PM 1:30PM Insurance Includes: Active Insurance Policies Plan Name Member ID Group # Subscriber Relationship Effective Da deena 1 - Medicare Part B [facility] ([facility]) [id number] Lana jarvis Self 2 - [employer] /PRIOR AUTHS NEEDED [id number] Elizabeth Reeves Self Advance Directives Includes: Current Advance DirectivesNo Advance Directives Recorded Health Concerns Includes: Active Health ConcernsNo Active Health Concerns Recorded Goals Includes: Active GoalsNo Active Goals Recorded Interventions Includes: Interventions for active GoalsNo Interventions Recorded Evaluations & Outcomes Includes: Evaluations & Outcomes for active GoalsNo Outcomes Recorded
--- OUTSIDE RECORDS SUMMARY | 2021-02-10 10:16 | CCD | Continuity of Care Document ---
Author Author Lana CHAMBERLAIN M.D. Organization Unknown Address [address], [address] [place] [address] Phone [phone] Care Team Providers Care Diesel Engineer Name Role Phone Jovany Leal M.D. AUTM [phone] AUTM Unavailable Trina Shannon AUTM [phone] Chris Carrera M.D. AUTM [phone] AUTM Unavailable Problems Active Problems Provider Date Acute sinusitis Scott Dougherty D.O. Onset: 7 Exacerbation of moderate persistent asthma Delia Ahmadi A.N. P. Onset: 01/13/2016 Long-term current use [...] Use Denies Drug Use Smoking Status Reviewed: 08/03/20 Denies Smoking Allergies, Adverse Reactions, Alerts Active Allergies Criticality Reaction | Severity Comments Date Penicillin Unable to assess criticality Urticaria 02/06/2011 Sulfa Antibiotics Unable to assess criticality Urticaria 02/06/2011 Medications Active Medications SIG Qnty Indications Ordering Provide r Date Azithromycin 250mg Tablets 2 tabs by mouth day 1, then 1 tab by mouth day 2-6 6tabs Mike Sierra NP 11/22/2020 Prednisone 10mg Tablets 2 tabs by mouth x 5 days, then 1 tab by mouth x 5 days, then stop 15tabs ALFRED Sierra 11/22/2020 Sucralfate 1GM/10ML Suspension 10 milliliters by mouth half an hour before meals, and at bedtime. (3 times daily) ( if not covered give tablets) 840ml Sean johnson M.D. 10/29/2020 Flovent HFA 220mcg/Act Aerosol 2 puff twice a day 36gm ALFRED Sierra 08/03/2020 Nystatin [id number]/ML Suspension 5 milliliters swish (gargle) and swallow, upto 4 times a day for 2-3 days. 60ml Sean Chamberlain M.D. 05/19/2020 Benzonatate 200mg Capsules 1 by mouth three times a day 90caps ALFRED Sierra 10/22/2019 Levalbuterol Tartrate 45mcg/Act Ae rosol Inhale Two Puffs By Mouth Four Times A Day as Needed 45units ALFRED Sierra 09/15/2019 Nebulizer Kit/Tubing/Mouthpiece K it use with nebulizer as directed 2units J45.40 Scott Dougherty, 07/23/2019 Albuterol Sulfate (2 .5mg/3ML) 0.083% Nebulizer 1 vial four times a day as needed 360ml J45.40 Scott Dougherty, 07/23/2019 Singulair 10mg Tablets 1 by mouth every day 90tabs J45.40 Scott Dougherty, 12/24/2014 Xopenex HFA 45mcg/Act Aerosol 2 puffs qid/prn 45units Scott Dougherty, D.O. 06/27/19 14 Vitamin C W/Vitamin D & Calcium 1tab po qd Unkn own Hydrocortisone HC 2.5 prn Unknown Olopatadine HCL 0.2% Solution 1 drop each eye twice a day Unknown Premarin 0.625mg/GM Cream 2x/ wk Unknown Claritin 10mg Tablets 1tab po qd Unknown Flonase Sensimist 27 .5mcg/[place] Suspension use as directed Unknown Sucralfate 1gm Tablets qid Unknown Metformin HCL 500mg Tablets 1tab po bid Unknown Hydroxychloroquine Sulfate 200mg T ablets 1tab po bid Unknown Synthroid 50mcg Tablets 1- 1 1/2 po qd as directed by pcp Unknown Restasis 0.05% Emulsion 1 gt o.u. bid Unknown History Medications Prednisone 10mg Tablets 30mg x 3 days, 20mg x 3 days, 10mg x 3 days then stop 18tabs J45.40 ALFRED Lassiter 08/03/2020 - 11/15/2020 Sucralfate 1gm Tablets 1 tab by mouth 2-3 times a day before meals (please give alternative liquid formulation if available). course of 6 weeks. 90tabs Sean johnson M.D. 06/15/2020 - 10/29/2020 Advair HFA 230-21mcg/Act Aerosol 2 puff twice a day Please send LAN 36gm ALFRED Sierra 06/2020 - 08/03/2020 Immunizations CPT Code Status Date Vaccine Lot # [id number] Given 01/27/2015 Influenza Virus Split 3 Yrs And Above For Intramuscular Use 22228 Given 01/06/2014 Influenza Virus Split 3 Yrs And Above For Intramuscular Use 66845 Given 02/06/2011 Pneumococcal PPSV23 Q2036 Given 02/04/2009 Influenza Vaccine 3 Years Of Age Or Older (Flulaval) Q2036 Given Unknown Influenza Vaccine 3 Years Of Age Or Older (Flulaval) 22253 Given Unknown Pneumococcal PPSV23 Vital Signs Date Vital Result Comment 08/03/2020 8:01am BP Systolic 122 mmHg BP Diastolic 82 mmHg Heart Rate 76 /min O2 % BldC Oximetry 98 % Body Temperature 97.7 F Height 64 inches 5'4" Weight 149.00 lb BMI (Body Mass Index) 25.6 kg/m2 [place] Body Weight 120 lb Weight 67.586 kg BSA (Body Surface Area) 1.73 m2 06/15/2020 12:59pm BP Systolic 146 mmHg BP Diastolic 82 mmHg Height 64 inches 5'4" Weight 149.00 lb BMI (Body Mass Index) 25.6 kg/m2 [place] Body Weight 120 lb Weight 67.586 kg BSA (Body Surface Area) 1.73 m2 Results Test Acquired Date Facility Test Result H/L Range Note FVL/Datil 05/27/2020 [facility] SEE IMAGE FVC-Pred 3.11 L FVC-Pre 2.81 L FVC-%Pred-Pre 90 L FVC-LLN 2.47 L Fev1-Pred 2.43 L Fev1-Pre 2.38 L Fev1-%Pred-Pre 98 L Fev1-LLN 1.89 L Fev6-Pred 3.01 L Fev6-Pre 2.81 L Fev6-%Pred-Pre 93 L Fev6-LLN 2.38 L Dtr1rtt-Tnam 79 % Dwq1qea-Lnh 85 % Bjn2ste-%Pred-Pre 107 % Ngn9uua-TWL 69 % Pob2omb-Rdnk 97 % Pmo9wcg-Gds 100 % Vjm9huy-%Pred-Pre 103 % FEFMax-Pred 6.12 L/E/sec FEFMax-Pre 5.92 L/E/sec FEFMax-%Pred-Pre 96 L/E/sec FEFMax-LLN 4.53 L/E/sec Pdd6415-Bsjd 2.38 L/E/sec Sxx4146-Xix 2.90 L/E/sec Smc9933-%Pred-Pre 122 L/E/sec Gcq1085-HOL 1.23 L/E/sec ExpTime-Pre 5.86 sec Dnl0fwu6-Zfrd 81 % Bop1bpz0-Vec 85 % Bxz5iqd3-%Pred-Pre 104 % Ldf5xcs9-AAD 73 % Procedures Date Code Description Status 10/28/2020 90720 Office/Outpatient Established Lo w MDM 20-29 Min Completed 08/03/2020 17964 Office/Outpatient Established Lo w MDM 20-29 Min Completed 08/03/2020 83948 Spirometry Completed 06/15/2020 20624 Office/Outpatient Established Lo w MDM 20-29 Min Completed 05/27/2020 81008 Office/Outpatient Established Lo w MDM 20-29 Min Completed 05/27/2020 85690 Spirometry Completed Medical Devices Description No Information Available Encounters Type Date Location Provider Dx Diagnosis Office Visit 10/28/2020 2:10p [facility] Sean Chamberlain M.D. B37.81 Candidal esophagitis K21.00 Gastro-esophageal reflux dis with esophagitis, without bleed Office Visit 08/03/2020 8:00a [facility] Delia To ALFRED sheffield J45.40 Moderate persistent asthma, uncomplicate d Office Visit 06/15/2020 1:00p [facility] Sean wang M.D. K21.00 Gastro-esophageal reflux dis with esopha gitis, without bleed B37.81 Candidal esophagitis Office Visit 05/27/2020 10:00a [facility] Delia To ALFRED sheffield J45.40 Moderate persistent asthma, uncomplicate d Assessments Date Code Description Provider 10/28/2020 B37.81 Candidal esophagitis Sean ferrera M.D. 10/28/2020 K21.00 Gastro-esophageal re flux disease with esophagitis, without bleeding Sean Chamberlain M.D. 08/03/2020 J45.40 Moderate persistent asthma, unco mplicated ALFRED Sierra 06/15/2020 K21.00 Gastro-esophageal re flux disease with esophagitis, without bleeding Sean Chamberlain M.D. 06/15/2020 B37.81 Candidal esophagitis Sean ferrera M.D. 05/27/2020 J45.40 Moderate persistent asthma, unco mplicated ALFRED Sierra Plan of Treatment Future Appointment(s):* 02/09/2021 8:30 am - Delia Ahmadi, ANP at [facility] 10/28/2020 - Sean Chamberlain M.D.* B37.81 Candidal esophagitis * K21.00 Gastro-esophageal reflux disease with esophagitis, without bleeding * * Comments:* Impression:--- Chronic acid reflux and prior h/o chest pain ( in past admission in [facility]) s/p EGD - which showed. suspected Candidal esophagitis. -- Now symptoms improved. Needs follow up.-- Average risk for colo polyps- as per patient she had Colonoscopy in the recent past. * Recommendations:* -- FOllow anti-reflux regimen, -- Complete the PPI course for now. -- Educated abot gargling the throat for previously noted Candidiasis. -- Obtain prior Colonosocpy reports and plan for furhter screening reports. -- Return to GI clinic after the above in 4- 6 weeks. Functional Status Description No Information Available Mental Status Description No Information Available Referrals Description No Information Available
--- OUTSIDE RECORDS SUMMARY | 2021-02-10 10:16 | CCD | Continuity of Care Document ---
Author Author Lana RODRIGUEZ [facility] Organization Unknown Address [address] [place] [address] Phone [phone] Care Team Providers Care Fire Protection Inspector Name Role Phone Jovany Leal M.D. AUTM [phone] AUTM Unavailable Trina Shannon AUTM [phone] Chris Carrera M.D. AUTM [phone] AUTM Unavailable Problems Active Problems Provider Date [...] Use Smoking Status Reviewed: 08/03/20 Denies Smoking Allergies and adverse reactions Active [...] a day 36gm ALFRED Sierra 08/03/2020 Nystatin 866129Bobu/ML Suspension 5 milliliters swish (gargle) and swallow, [...] use with nebulizer as directed 2units J45.40 Tirso ParrishO 07/23/2019 Albuterol Sulfate (2 .5mg/3ML) 0.083% Nebulizer 1 vial four times a day as needed 360ml J45.40 Tirso CrowO 07/23/2019 Singulair 10mg Tablets 1 by mouth every day 90tabs J45.40 Scott Dougherty D.O 12/24/2014 Xopenex HFA 45mcg/Act Aerosol 2 puffs qid/prn 45units Scott Dougherty D.O. 06/27/19 14 Restasis 0.05% Emulsion 1 gt o.u. bid Unknown Hydrocortisone HC 2.5 prn Unknown Olopatadine HCL 0.2% Solution 1 drop each eye twice a day Unknown Premarin 0.625mg/GM Cream 2x/ wk Unknown Claritin 10mg Tablets 1tab po qd Unknown Flonase Sensimist 27 .5mcg/[place] Suspension use as directed Unknown Sucralfate 1gm Tablets qid Unknown Metformin HCL 500mg Tablets 1tab po bid Unknown Hydroxychloroquine Sulfate 200mg T ablets 1tab po bid Unknown Synthroid 50mcg Tablets 1- 1 1/2 po qd as directed by pcp Unknown Vitamin C W/Vitamin D & Calcium 1tab po qd Unkn own History Medications Prednisone 10mg Tablets 30mg x 3 days, 20mg x 3 days, 10mg x 3 days then stop 18tabs J45.40 ALFRED Lassiter 08/03/2020 - 11/15/2020 Immunizations CPT Code Status Date Vaccine Lot # [id number] Given 01/27/2015 Influenza Virus Split 3 Yrs And Above For Intramuscular Use 85871 Given 01/06/2014 Influenza Virus Split 3 Yrs And Above For Intramuscular Use 29842 Given 02/06/2011 Pneumococcal PPSV23 Q2036 Given 02/04/2009 Influenza Vaccine 3 Years Of Age Or Older (Flulaval) Q2036 Given Unknown Influenza Vaccine 3 Years Of Age Or Older (Flulaval) 46528 Given Unknown Pneumococcal PPSV23 Vital Signs Date Vital Result Comment 08/03/2020 8:01am BP Systolic 122 mmHg BP Diastolic 82 mmHg Heart Rate 76 /min O2 % BldC Oximetry 98 % Body Temperature 97.7 F Height 64 inches 5'4" Weight 149.00 lb BMI (Body Mass Index) 25.6 kg/m2 [place] Body Weight 120 lb Weight 67.586 kg BSA (Body Surface Area) 1.73 m2 06/15/2020 12:59pm BP Systolic 146 mmHg BP Diastolic 82 mmHg Height 64 inches 5'4" Weight 149.00 lb BMI (Body Mass Index) 25.6 kg/m2 [place] Body Weight 120 lb Weight 67.586 kg BSA (Body Surface Area) 1.73 m2 Results Description No Information Available Procedures Date Code Description Status 10/28/2020 45997 Office/Outpatient Established Lo w MDM 20-29 Min Completed 08/03/2020 94042 Office/Outpatient Established Lo w MDM 20-29 Min Completed 08/03/2020 63116 Spirometry Completed Medical Devices Description No Information Available Encounters Type Date Location Provider Dx Diagnosis Office Visit 10/28/2020 2:10p [facility]astro[facility] hannah Woods M.D. B37.81 Candidal esophagitis K21.00 Gastro-esophageal reflux dis with esophagitis, without bleed Office Visit 08/03/2020 8:00a [facility] Pulmonary/Thoracic ALFRED Alva J45.40 Moderate persistent asthma, uncomplicate d Assessments Date Code Description Provider 10/28/2020 B37.81 Candidal esophagitis Sean ferrera M.D. 10/28/2020 K21.00 Gastro-esophageal re flux disease with esophagitis, without bleeding Sean Woods M.D. 08/03/2020 J45.40 Moderate persistent asthma, unco mplicated ALFRED Sierra Plan of Treatment Future Appointment(s):* 02/09/2021 8:30 am - ALFRED Sierra at [facility] Pulmonary/Thoracic 10/28/2020 - Sean Woods M.D.* B37.81 Candidal esophagitis * K21.00 Gastro-esophageal reflux disease with esophagitis, without bleeding * * Comments:* Impression:--- Chronic acid reflux and prior h/o chest pain ( in past admission in [facility]) s/p EGD - which showed. suspected Candidal [...]
--- OUTSIDE RECORDS SUMMARY | 2021-02-10 10:16 | CCD ---
Author Author Scott Brady MD [facility] Organization Scott Brady MD [facility] Address [address] [place] [phone] Phone Care Team Providers Care Banking Teacher Name Role Phone Noni Tate O.D. Unavailable [phone] Jose Antonio LAMB, Scott SHER Unavailable [phone] Trina Malone PP [phone] Nancy Hatch MD Unavailable [phone] Reason for Referral No Reason for Referral Recorded Problems Includes: Active, inactive, and resolved Problems All Visits Onset Date - Time Resolved Date - Time Provider Co ndition Status Skilled Nursing Use of Other Medications 06/07/2018 - 12:00AM Scott Brady MD, FACS Active Sicca Syndrome with Organ Involvement 06/07/2018 - 12:00AM Scott Brady MD, [facility] Active Cataract Senile Nuclear 10/22/2017 - 12:00AM [facility] DO Active Conjunctivitis Acute Atopic 08/06/2017 [...] ng with Scott Brady MD, FACS 10/05/2020 custodial use of other medications 6 Month follow [...] Follow-Up with Scott garzon MD, FACS 04/01/2020 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 8 Month Follow-Up [...] Follow-Up with Scott Brady MD, FACS 04/01/2020 custodial use of other medications TESTING - VISUAL FI ELD & OCT with Scott Brady MD, FACS 01/08/2020 Sicca syndrome with organ involvement TESTING - VISUAL FIELD & OCT with Scott Brady MD, FACS 01/08/2020 Dry eye syndrome 7 Month Follow-Up with Scott garzon MD, FACS 08/19/2019 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 7 Month Follow-Up [...] Follow-Up with Scott Brady MD, FACS 08/19/2019 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 TESTING - VISUAL FI ELD & OCT with Scott Brady MD, FACS 03/10/2019 Sicca syndrome with organ involvement TESTING - VISUAL FIELD & OCT with Scott Brady MD, FACS 03/10/2019 Dry eye syndrome 6 Month Follow-Up with Scott garzon MD, FACS 12/03/2018 custodial use of other medications 6 Month Follow-Up w ith Scott Brady MD, FACS 12/03/2018 Nuclear senile cataract 6 Month Follow-Up with Scott Bermudez MD, FACS 12/03/2018 Sicca syndrome with organ involvement 6 Month Follow-U p with Scott Brady MD, FACS 12/03/2018 custodial use of other medications TESTING - VISUAL FI ELD & OCT with Scott Brady MD, FACS 07/10/2018 Sicca syndrome with organ involvement TESTING - VISUAL FIELD & OCT with Scott Brady MD, FACS 07/10/2018 Chronic allergic conjunctivitis 9 Month Follow-Up with Scott Brady MD, FACS 06/07/2018 Dry eye syndrome 9 Month Follow-Up with Scott garzon MD, FACS 06/07/2018 custodial use of other medications 9 Month Follow-Up w ith Scott Brady MD, FACS 06/07/2018 Nuclear senile cataract 9 Month Follow-Up with Scott Bermduez MD, FACS 06/07/2018 Sicca syndrome with organ involvement 9 Month Follow-U p with Scott Brady MD, FACS 06/07/2018 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 TESTING - VISUAL [...] 6 Week Follow-Up with Scott Patel MD, [facility] 09/17/2017 Chronic allergic conjunctivitis 6 Week Follow-Up with Scott Brady MD, [facility] 09/17/2017 Dry eye syndrome 6 Week Follow-Up with Scott mchugh MD, [facility] 09/17/2017 Acute atopic conjunctivitis NEW PATIENT WITH REFERRAL with Scott Brady MD, FACS 08/06/2017 Chronic allergic conjunctivitis NEW PATIENT WITH REFER RAL with Scott Holley MD, [facility] 08/06/2017 Dry eye syndrome NEW PATIENT WITH REFERRAL with Scott Brady MD, FACS 08/06/2017 Vitreous degeneration NEW PATIENT WITH REFERRAL [facility] Scott Brady MD, [facility] 08/06/2017 Instructions Instructions not supported for this document typeNo Instructions Recorded Medical Equipment - Implanted Devices Includes: Current and historical DevicesNo Medical Equipment Recorded Medications Includes: Current and historical Medications Current Medications (continue as prescribed) Restasis 0.05% Ophthalmic Emulsion 02/23/2020 Provi mariana: Scott Brady MD, [facility] Diagnosis: Dry eye syndrome of bilateral [...] Recorded Vital Signs Includes: Vital Signs from 12/27/2019 through 12/26/2020No Vital Signs Recorded For Specified Dates Results Includes: Results from 12/27/2019 through 12/26/2020No Results Recorded For Specified Dates History of [...] Procedures and Surgical History Includes: Procedures from 12/27/2019 through 12/26/2020 Procedures Code Diagnosis Performing Provider Service Location Service Date Intermediate Eye Exam Established Patient 707[address] Sicca syndrome with other organ involvement, Other mcfp (current) drug therapy, Type 2 diabetes mellitus without complications, custodial (current) use of oral hypoglycemic drugs Scott Brady MD, [facility] Brady MD [facility] 04/01/2020 [facility], with interpretation and report [id number] Sicca syndrome with other organ involvement, Other mcfp (current) drug therapy Scott Brady MD, [facility] Brady MD [facility] 01/08/2020 Visual Field [id number] Sicca syndrome with other organ involvement, Other optical effects layout person (current) drug therapy Scott Brady MD, [facility] Brady MD [facility] 01/08/2020 Surgical History Last Updated Surgical / [...] - 12:00AM Active Encounters Includes: Encounters from 12/27/2019 through 12/26/2020 Encounter Provider Location Date Check-In Time Check-Out Time D iagnosis 6 Month follow up with testing Scott Brady MD, FACS Scott Brady MD 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 04/01/2020 9:43AM 10:46AM Cataract Senile Nucl ear, Dry Eye Syndrome, Taking Medication For Diabetes Long-term Use of Oral Hypoglycemics, Sicca Syndrome with Organ Involvement, Diabetes Mellitus Type 2 Without Complication, Skilled Nursing Use of Other Medications Rx Refills/Changes Scott Brady MD, [facility] 02/23/2020 01/08/2020 10:10AM 01/08/2020 11:59PM TESTING - VISUAL FIELD & OCT Scott Brady MD, [facility] Dillon MD [facility] 01/08/2020 12:51PM 1:58PM Skilled Nursing Use of Other Medications, Sicca Syndrome with Organ Involvement VISUAL FIELD 10-2 Scott Brady MD, FACS Scott Brady MD [facility] 01/08/2020 12:48PM 1:30PM Insurance Includes: Active Insurance Policies Plan Name Member ID Group # Subscriber Relationship Effective Da deena 1 - Medicare Part B [facility] ([facility]) [id number] Lana jarvis Self 2 - [employer] /PRIOR AUTHS NEEDED [id number] Elizabeth Reeves Self Advance Directives Includes: Current Advance DirectivesNo Advance Directives Recorded Health Concerns Includes: Active Health ConcernsNo Active Health Concerns Recorded Goals Includes: Active GoalsNo Active Goals Recorded Interventions Includes: Interventions for active GoalsNo Interventions Recorded Evaluations & Outcomes Includes: Evaluations & Outcomes for active GoalsNo Outcomes Recorded
--- OUTSIDE RECORDS SUMMARY | 2021-02-10 10:17 | CCD ---
Author Author [facility] Organization [facility] Address Unknown Phone Unavailable Care Team Providers Care Movable Bulkhead Installer Name Role Phone Daiana, L Delia OBSERVATION NURSE Unavailable Unavailable Daiana, L Delia OBSERVATION NURSE Unavailable Unavailable Daiana, L Delia OBSERVATION NURSE Unavailable Unavailable Daiana, L Delia OBSERVATION NURSE Unavailable Unavailable Daiana, L Delia OBSERVATION NURSE Unavailable Unavailable Daiana, L Delia OBSERVATION NURSE Unavailable Unavailable Daiana, L Delia OBSERVATION NURSE Unavailable Unavailable Daiana, L Delia OBSERVATION NURSE Unavailable Unavailable Daiana, L Delia OBSERVATION NURSE Unavailable Unavailable Daiana, L Delia OBSERVATION NURSE Unavailable Unavailable Daiana, L Delia OBSERVATION NURSE Unavailable Unavailable Daiana, L Delia OBSERVATION NURSE Unavailable Unavailable Daiana, L Delia OBSERVATION NURSE Unavailable Unavailable Daiana, L Delia OBSERVATION NURSE Unavailable Unavailable Daiana, L Delia OBSERVATION NURSE Unavailable Unavailable Daiana, L Delia OBSERVATION NURSE Unavailable Unavailable Daiana, L Delia OBSERVATION NURSE Unavailable Unavailable Daiana, L Delia OBSERVATION NURSE Unavailable Unavailable Daiana, L Delia OBSERVATION NURSE Unavailable Unavailable Daiana, L Delia OBSERVATION NURSE Unavailable Unavailable Daiana, L Delia OBSERVATION NURSE Unavailable Unavailable Daiana, L Delia OBSERVATION NURSE Unavailable Unavailable Daiana, L Delia OBSERVATION NURSE Unavailable Unavailable Daiana, L Delia OBSERVATION NURSE Unavailable Unavailable Daiana, L Delia OBSERVATION NURSE Unavailable Unavailable Sukhwinder Leal MD Unavailable Unavailable [...] Unavailable Unavailable Sukhwinder Leal MD Unavailable Unavailable Elvis, Sukhwinder Manzo MD Unavailable Unavailable Elvis, Sukhwinder Manzo MD Unavailable Unavailable Elvis, Sukhwinder Manzo MD Unavailable Unavailable Elvis, Sukhwinder Manzo MD Unavailable Unavailable Elvis, Sukhwinder Manzo MD Unavailable Unavailable Leal, Sukhwinder Manzo MD Unavailable Unavailable PETROFF, JALYN PA Unavailable Unavailable PETROFF, JALYN PA Unavailable Unavailable PETROFF, JALYN PA Unavailable Unavailable PETROFF, JALYN PA Unavailable Unavailable PETROFF, JALYN PA Unavailable Unavailable PETROFF, JALYN PA Unavailable Unavailable PETROFF, JALYN PA Unavailable Unavailable PETROFF, JALYN PA Unavailable Unavailable Shannon, Trina OIL AGENT Unavailable Unavailable Shannon, Trina OIL AGENT Unavailable Unavailable Shannon, Trina OIL AGENT Unavailable Unavailable Shannon, Trina OIL AGENT Unavailable Unavailable Shannon, Trina OIL AGENT Unavailable Unavailable Shannon, Trina OIL AGENT Unavailable Unavailable Shannon, Trina OIL AGENT Unavailable Unavailable Shannon, Trina OIL AGENT Unavailable Unavailable Shannon, Trina OIL AGENT Unavailable Unavailable Shannon, Trina OIL AGENT Unavailable Unavailable Shannon, Trina OIL AGENT Unavailable Unavailable Shannon, Trina OIL AGENT Unavailable Unavailable Shannon, Trina OIL AGENT Unavailable Unavailable Shannon, Trina OIL AGENT Unavailable Unavailable Shannon, Trina OIL AGENT Unavailable Unavailable Shannon, Trina OIL AGENT Unavailable Unavailable Shannon, Trina OIL AGENT Unavailable Unavailable Shannon, Trina OIL AGENT Unavailable Unavailable Shannon, Trina OIL AGENT Unavailable Unavailable Shannon, Trina OIL AGENT Unavailable Unavailable Shannon, Trina OIL AGENT Unavailable Unavailable Shannon, Trina OIL AGENT Unavailable Unavailable Shannon, Trina OIL AGENT Unavailable Unavailable Shannon, Trina OIL AGENT Unavailable Unavailable Shannno, Trina OIL AGENT Unavailable Unavailable Shannon, Trina OIL AGENT Unavailable Unavailable Shannon, Trina OIL AGENT Unavailable Unavailable Shannon, Trina OIL AGENT Unavailable Unavailable Shannon, Trina OIL AGENT Unavailable Unavailable Shannon, Trina OIL AGENT Unavailable Unavailable Shannon, Trina OIL AGENT Unavailable Unavailable Shnanon, Trina OIL AGENT Unavailable Unavailable Shannon, Trina OIL AGENT Unavailable Unavailable Shannon, Trina OIL AGENT Unavailable Unavailable Shannon, Trina OIL AGENT Unavailable Unavailable Shannon, Trina OIL AGENT Unavailable Unavailable Shannon, Trina OIL AGENT Unavailable Unavailable Shannon, Trina OIL AGENT Unavailable Unavailable Shannon, Trina OIL AGENT Unavailable Unavailable Shannon, Trina OIL AGENT Unavailable Unavailable Shannon, Trina OIL AGENT Unavailable Unavailable Shannon, Trina OIL AGENT Unavailable Unavailable Shannon, Trina OIL AGENT Unavailable Unavailable Shannon, Trina OIL AGENT Unavailable Unavailable Shannon, Trina OIL AGENT Unavailable Unavailable Trina Shannon OIL AGENT Unavailable Unavailable ShannonTrina OIL AGENT Unavailable Unavailable Shannon, Trina OIL AGENT Unavailable Unavailable Trickey, J Sheree PA Unavailable Unavailable Trickey, J Sheree PA Unavailable Unavailable Trickey, J Sheree PA Unavailable Unavailable Trickey, J Sheree PA Unavailable Unavailable Trickey, J Sheree PA Unavailable Unavailable Trickey, J Sheree PA Unavailable Unavailable Trickey, J Sheree PA Unavailable Unavailable Trickey, J Sheree PA Unavailable Unavailable Trickey, J Sheree PA Unavailable Unavailable Trickey, J Sheree PA Unavailable Unavailable Trickey, J Sheree PA Unavailable Unavailable Trickey, J Sheree PA Unavailable Unavailable Trickey, J Sheree PA Unavailable Unavailable Trickey, J Sheree PA Unavailable Unavailable Trickey, J Sheree PA Unavailable Unavailable Trickey, J Sheree PA Unavailable Unavailable Trickey, J Sheree PA Unavailable Unavailable Trickey, J Sheree PA Unavailable Unavailable Trickey, J Sheree PA Unavailable Unavailable Trickey, J Sheree PA Unavailable Unavailable Trickey, J Sheree PA Unavailable Unavailable Trickey, J Sheree PA Unavailable Unavailable Trickey, J Sheree PA Unavailable Unavailable Trickey, J Sheree PA Unavailable Unavailable Trickey, J Sheree PA Unavailable Unavailable Trickey, J Sheree PA Unavailable Unavailable Trickey, J Sheree PA Unavailable Unavailable Trickey, J Sheree PA Unavailable Unavailable Trickey, J Sheree PA Unavailable Unavailable Trickey, J Sheree PA Unavailable Unavailable Trickey, J Sheree PA Unavailable Unavailable Trickey, J Sheree PA Unavailable Unavailable Trickey, J Sheree PA Unavailable Unavailable Trickey, J Sheree PA Unavailable Unavailable Trickey, J Sheree PA Unavailable Unavailable Trickey, J Sheree PA Unavailable Unavailable Trickey, J Sheree PA Unavailable Unavailable Trickey, J Sheree PA Unavailable Unavailable Trickey, J Sheree PA Unavailable Unavailable Trickey, J Sheree PA Unavailable Unavailable Trickey, J Sheree PA Unavailable Unavailable Trickey, J Sheree PA Unavailable Unavailable Trickey, J Sheree PA Unavailable Unavailable Trickey, J Sheree PA Unavailable Unavailable Trickey, J Sheree PA Unavailable Unavailable Trickey, J Sheree PA Unavailable Unavailable Trickey, J Sheree PA Unavailable Unavailable Trickey, J Sheree PA Unavailable Unavailable Trickey, J Sheree PA Unavailable Unavailable SHAUN, LU PA Unavailable [...] Unavailable Unavailable SHAUN, LU PA Unavailable Unavailable Alok Holley, Mike Chavez MD, FACS Unavailable Unavailable Dickinson Kishan, Mike Chavez MD, FACS Unavailable Unavailable Dickinson Kishan, Mike Chavez MD, FACS Unavailable Unavailable Dickinson Kishan, Mike Chavez MD, FACS Unavailable Unavailable Dickinson Kishan, Mike Chavez MD, FACS Unavailable Unavailable Dickinson Kishan, Mike Chavez MD, FACS Unavailable Unavailable Dickinson Holley, Mike Chavez MD, FACS Unavailable Unavailable Dickinson Holley, Mike Chavez MD, FACS Unavailable Unavailable Dickinson Holley, Mike Chavez MD, FACS Unavailable Unavailable Dickinson Holley, Mike Chavez MD, FACS Unavailable Unavailable Dickinson Holley, Mike Chavez MD, FACS Unavailable Unavailable Dickinson Holley, Mike Chavez MD, FACS Unavailable Unavailable Dickinson Holley, Mike Chavez MD, FACS Unavailable Unavailable Dickinson Holley, Mike Chavez MD, FACS Unavailable Unavailable Dickinson Kishan, Mike Chavez MD, FACS Unavailable Unavailable Dickinson Kishan, Mike Chavez MD, FACS Unavailable Unavailable Dickinson Holley, Mike Chavez MD, FACS Unavailable Unavailable Dickinson Holley, Mike Chavez MD, FACS Unavailable Unavailable Dickinson Holley, Mike Chavez MD, FACS Unavailable Unavailable Dickinson Holley, Mike Chavez MD, FACS Unavailable Unavailable Dickinson Holley, Mike Chavez MD, FACS Unavailable Unavailable Dickinson Holley, Mike Chavez MD, FACS Unavailable Unavailable Dickinson Holley, Mike Chavez MD, FACS Unavailable Unavailable Dickinson Holley, Mike Chavez MD, FACS Unavailable Unavailable Dickinson Holley, Mike Chavez MD, FACS Unavailable Unavailable Dickinson Holley, Mike Chavez MD, FACS Unavailable Unavailable Dickinson Holley, Mike Chavez MD, FACS Unavailable Unavailable Dickinson Holley, Mike Chavez MD, FACS Unavailable Unavailable Dickinson Holley, Mike Chavez MD, FACS Unavailable Unavailable Dickinson Holley, Mike Chavez MD, FACS Unavailable Unavailable Dickinson Holley, Mike Chavez MD, FACS Unavailable Unavailable Dickinson Holley, Mike Chavez MD, FACS Unavailable Unavailable Dickinson Holley, Mike Chavez MD, FACS Unavailable Unavailable Dickinson Holley, Mike Chavez MD, FACS Unavailable Unavailable Dickinson Holley, Mike Chavez MD, FACS Unavailable Unavailable Dickinson Holley, Mike Chavez MD, FACS Unavailable Unavailable Dickinson Holley, Mike Chavez MD, FACS Unavailable Unavailable Dickinson Holley, Mike Chavez MD, FACS Unavailable Unavailable Dickinson Holley, Mike Chavez MD, FACS Unavailable Unavailable Mayra, N Phi OBSERVATION NURSE Unavailable Unavailable Mayra, N Phi OBSERVATION NURSE Unavailable Unavailable Mayra, N Phi OBSERVATION NURSE Unavailable Unavailable [place], N Phi OBSERVATION NURSE Unavailable Unavailable Mayra, N Phi OBSERVATION NURSE Unavailable Unavailable Mayra, N Phi OBSERVATION NURSE Unavailable Unavailable Mayra, N Phi OBSERVATION NURSE Unavailable Unavailable [place], N Phi OBSERVATION NURSE Unavailable Unavailable [place], N Phi OBSERVATION NURSE Unavailable Unavailable Mayra, N Phi OBSERVATION NURSE Unavailable Unavailable Mayra, N Phi OBSERVATION NURSE Unavailable Unavailable [place], N Phi OBSERVATION NURSE Unavailable Unavailable Mayra, N Phi OBSERVATION NURSE Unavailable Unavailable [place], N Hpi OBSERVATION NURSE Unavailable Unavailable Mayra, N Phi OBSERVATION NURSE Unavailable Unavailable [place], N Phi OBSERVATION NURSE Unavailable Unavailable Mayra, N Phi OBSERVATION NURSE Unavailable Unavailable [place], N Phi OBSERVATION NURSE Unavailable Unavailable Mayra, N Phi OBSERVATION NURSE Unavailable Unavailable Mayra, N Phi OBSERVATION NURSE Unavailable Unavailable Mayra, N Phi OBSERVATION NURSE Unavailable Unavailable [place], N Phi OBSERVATION NURSE Unavailable Unavailable Mayra, N Phi OBSERVATION NURSE Unavailable Unavailable Mayra, N Phi OBSERVATION NURSE Unavailable Unavailable Mayra, N Phi OBSERVATION NURSE Unavailable Unavailable [place], N Phi OBSERVATION NURSE Unavailable Unavailable Mayra, N Phi OBSERVATION NURSE Unavailable Unavailable Mayra, N Phi OBSERVATION NURSE Unavailable Unavailable [place], N Phi OBSERVATION NURSE Unavailable Unavailable [place], N Hpi OBSERVATION NURSE Unavailable Unavailable [place], N Phi OBSERVATION NURSE Unavailable Unavailable Mayra, N Phi OBSERVATION NURSE Unavailable Unavailable Mayra, N Phi OBSERVATION NURSE Unavailable Unavailable Evangelist CHAMBERLAIN MD Unavailable Unavailable Evangelist CHAMBERLAIN MD Unavailable Unavailable Evangelist CHAMBERLAIN MD Unavailable Unavailable Evangelist CHAMBERLAIN MD Unavailable Unavailable Evangelist CHAMBERLAIN MD Unavailable Unavailable Evangelist CHAMBERLAIN MD Unavailable Unavailable Evangelist CHAMBERLAIN MD Unavailable Unavailable Evangelist CHAMBERLAIN MD Unavailable Unavailable Evangelist CHAMBERLAIN MD Unavailable Unavailable Evangelist CHAMBERLAIN MD Unavailable Unavailable Evangelist CHAMBERLAIN MD Unavailable Unavailable Evangelist CHAMBERLAIN MD Unavailable Unavailable Evangelist CHAMBERLAIN MD Unavailable Unavailable Evangelist CHAMBERLAIN MD Unavailable Unavailable Evangelist CHAMBERLAIN MD Unavailable Unavailable Evangelist CHAMBERLAIN MD Unavailable Unavailable Evangelist CHAMBERLAIN MD Unavailable Unavailable Evangelist CHAMBERLAIN MD Unavailable Unavailable Evangelist CHAMBERLAIN MD Unavailable Unavailable Evangelist CHAMBERLAIN MD Unavailable Unavailable Evangelist CHAMBERLAIN MD Unavailable Unavailable Evangelist CHAMBERLAIN MD Unavailable Unavailable Evangelist CHAMBERLAIN MD Unavailable Unavailable Evangelist CHAMBERLAIN MD Unavailable Unavailable Evangelist CHAMBERLAIN MD Unavailable Unavailable Evangelist CHAMBERLAIN MD Unavailable Unavailable Evangelist CHAMBERLAIN MD Unavailable Unavailable Evangelist CHAMBERLAIN MD Unavailable Unavailable Evangelist CHAMBERLAIN MD Unavailable Unavailable Evangelist CHAMBERLAIN MD Unavailable Unavailable Evangelist CHAMBERLAIN MD Unavailable Unavailable Evangelist CHAMBERLAIN MD Unavailable Unavailable Evangelist CHAMBERLAIN MD Unavailable Unavailable Maring, Zonia PA Unavailable Unavailable Maring, Zonia PA Unavailable Unavailable Maring, Zonia PA Unavailable Unavailable Maring, Zonia PA Unavailable Unavailable Maring, Zonia PA Unavailable Unavailable Maring, Zonia PA Unavailable Unavailable Maring, Zonia PA Unavailable Unavailable Maring, Zonia PA Unavailable Unavailable Maring, Zonia PA Unavailable Unavailable Maring, Zonia PA Unavailable Unavailable Maring, Zonia PA Unavailable Unavailable Maring, Zonia PA Unavailable Unavailable Maring, Zonia PA Unavailable Unavailable Maring, Zonia PA Unavailable Unavailable Maring, Zonia PA Unavailable Unavailable Maring, Zonia PA Unavailable Unavailable FishSherie MD Unavailable Unavailable Sherie Stovall MD Unavailable Unavailable Wilman, Sherie Castaneda MD Unavailable Unavailable Sherie Stovall MD Unavailable Unavailable Sherie Stovall MD Unavailable Unavailable Fish, B Leonel LAMB Unavailable Unavailable Fish, B Leonel LAMB Unavailable Unavailable Fish, B Leonel LAMB Unavailable Unavailable Fish, B Leonel LAMB Unavailable Unavailable Fish, B Leonel LAMB Unavailable Unavailable Fish, B Leonel LAMB Unavailable Unavailable Fish, B Leonel LAMB Unavailable Unavailable Fish, B Leonel LAMB Unavailable Unavailable Fish, B Leonel LAMB Unavailable Unavailable Fish, B Leonel LAMB Unavailable Unavailable Fish, B Leonel LAMB Unavailable Unavailable Fish, B Leonel LAMB Unavailable Unavailable Fish, B Leonel LAMB Unavailable Unavailable Fish, B Leonel LAMB Unavailable Unavailable Fish, B Leonel LAMB Unavailable Unavailable Fish, B Leonel LAMB Unavailable Unavailable Fish, B Leonel LAMB Unavailable Unavailable Fish, B Leonel LAMB Unavailable Unavailable Fish, B Leonel LAMB Unavailable Unavailable Fish, B Leonel LAMB Unavailable Unavailable Fish, B Leonel LAMB Unavailable Unavailable Fish, B Leonel LAMB Unavailable Unavailable Fish, B Leonel LAMB Unavailable Unavailable Fish, B Leonel LAMB Unavailable Unavailable Fish, B Leonel LAMB Unavailable Unavailable Fish, B Leonel LAMB Unavailable Unavailable Fish, B Leonel LAMB Unavailable Unavailable Fish, B Leonel LAMB Unavailable Unavailable Fish, B Leonel LAMB Unavailable Unavailable Fish, B Leonel LAMB Unavailable Unavailable Fish, B Leonel LAMB Unavailable Unavailable Fish, B Leonel LAMB Unavailable Unavailable Fish, B Leonel LAMB Unavailable Unavailable Fish, B Leonel LAMB Unavailable Unavailable Fish, B Leonel LAMB Unavailable Unavailable Fish, B Leonel LAMB Unavailable Unavailable Fish, B Leonel LAMB Unavailable Unavailable Fish, B Leonel LAMB Unavailable Unavailable Fish, B Leonel LAMB Unavailable Unavailable Fish, B Leonel LAMB Unavailable Unavailable Fish, B Leonel LAMB Unavailable Unavailable Fish, B Leonel LAMB Unavailable Unavailable Fish, B Leonel LAMB Unavailable Unavailable Fish, B Leonel LAMB Unavailable Unavailable Fish, B Leonel LAMB Unavailable Unavailable Fish, B Leonel LAMB Unavailable Unavailable Fish, B Leonel LAMB Unavailable Unavailable Fish, B Leonel LAMB Unavailable Unavailable Fish, B Leonel LAMB Unavailable Unavailable Fish, B Leonel LAMB Unavailable Unavailable Fish, B Leonel LAMB Unavailable Unavailable Jennifer, Jeanne Suazoe OIL AGENT-C Unavailable Unavailabl e Jennifer, Jeanne Suazoe OIL AGENT-C Unavailable Unavailabl e Jennifer, Jeanne Suazoe OIL AGENT-C Unavailable Unavailabl e Jennifer, Jeanne Covarrubias OIL AGENT-C Unavailable Unavailabl e Jennifer, Regjulissa Suazoe OIL AGENT-C Unavailable Unavailabl e Jennifer, Jeanne Covarrubias OIL AGENT-C Unavailable Unavailabl e Jennifer, Pamela W Marci OIL AGENT-C Unavailable Unavailabl e Jennifer, Pamela W Marci OIL AGENT-C Unavailable Unavailabl e Jennifer, Pamela W Marci OIL AGENT-C Unavailable Unavailabl e Jennifer, Pamela W Marci OIL AGENT-C Unavailable Unavailabl e Jennifer, Pamela W Marci OIL AGENT-C Unavailable Unavailabl e Jennifer, Pamela W Marci OIL AGENT-C Unavailable Unavailabl e Jennifer, Pamela W Marci OIL AGENT-C Unavailable Unavailabl e Jennifer, Pamela W Marci OIL AGENT-C Unavailable Unavailabl e Jennifer, Pamela W Marci OIL AGENT-C Unavailable Unavailabl e Jennifer, Pamela W Marci OIL AGENT-C Unavailable Unavailabl e Jennifer, [facility] Unavailable Unavailabl e Jennifer, [facility] Lory Covarrubias OIL AGENT-C Unavailable Unavailabl e Jennifer, [facility] Marci OIL AGENT-C Unavailable Unavailabl e Jennifer, [facility] OIL AGENT-C Unavailable Unavailabl e Jennifer, [facility] OIL AGENT-C Unavailable Unavailabl e Jennifer, [facility] Marci OIL AGENT-C Unavailable Unavailabl e Jennifer, [facility] Marci OIL AGENT-C Unavailable Unavailabl e Jennifer, [facility]ci OIL AGENT-C Unavailable Unavailabl e Jennifer, [facility] OIL AGENT-C Unavailable Unavailabl e Jennifer, [facility] OIL AGENT-C Unavailable Unavailabl e Jennifer, [facility] Marci OIL AGENT-C Unavailable Unavailabl e Jennifer, [facility] OIL AGENT-C Unavailable Unavailabl e Jennifer, [facility] OIL AGENT-C Unavailable Unavailabl e Jennifer, [facility] OIL AGENT-C Unavailable Unavailabl e Jennifer, Regtanya W Marci OIL AGENT-C Unavailable Unavailabl e Jennifer, Regtanya W Marci OIL AGENT-C Unavailable Unavailabl e Sukhwinder Leal MD Unavailable Unavailable Sukhwinder Leal [...] Unavailable Unavailable Sukhwinder Leal MD Unavailable Unavailable MARU GARCIA MD Unavailable Unavailable MARU GARCIA MD Unavailable Unavailable MARU GARCIA MD Unavailable Unavailable MARU GARCIA MD Unavailable Unavailable MARU GARCIA MD Unavailable Unavailable MARU GARCIA MD Unavailable Unavailable MARU GARCIA MD Unavailable Unavailable MARU GARCIA MD Unavailable Unavailable MARU GARCIA MD Unavailable Unavailable MARU GARCIA MD Unavailable Unavailable MARU GARCIA MD Unavailable Unavailable MARU GARCIA MD Unavailable Unavailable MARU GARCIA MD Unavailable Unavailable MARU GARCIA MD Unavailable Unavailable MARU GARCIA MD Unavailable Unavailable MARU GARCIA MD Unavailable Unavailable MARU GARCIA MD Unavailable Unavailable MARU GARCIA MD Unavailable Unavailable MARU GARCIA MD Unavailable Unavailable MARU GARCIA MD Unavailable Unavailable MARU GARCIA MD Unavailable Unavailable MARU GARCIA MD Unavailable Unavailable MARU GARCIA MD Unavailable Unavailable MARU GARCIA MD Unavailable Unavailable MARU GARCIA MD Unavailable Unavailable MARU GARCIA MD Unavailable Unavailable MARU GARCIA MD Unavailable Unavailable MARU GARCIA MD Unavailable Unavailable MARU GARCIA MD Unavailable Unavailable MARU GARCIA MD Unavailable Unavailable MARU GARCIA MD Unavailable Unavailable MARU GARCIA MD Unavailable Unavailable MARU GARCIA MD Unavailable Unavailable JEFF WINSTON MD Unavailable Unavailable JEFF WINSTON MD Unavailable Unavailable TISHJEFF SNOW MD Unavailable Unavailable TISHJEFF SNOW MD Unavailable Unavailable TISHJEFF SNOW MD Unavailable Unavailable TISHJEFF SNOW MD Unavailable Unavailable TISHJEFF SNOW MD Unavailable Unavailable TISHJEFF SNOW MD Unavailable Unavailable TISHJEFF SNOW MD Unavailable Unavailable TISHJEFF SNOW MD Unavailable Unavailable TISHJEFF SNOW MD Unavailable Unavailable TISHJEFF SNOW MD Unavailable Unavailable TISH, JEFF LAMB Unavailable Unavailable TISHJEFF SNOW MD Unavailable Unavailable TISH, JEFF LAMB Unavailable Unavailable TISH, JEFF MD Unavailable Unavailable TISH, JEFF MD Unavailable Unavailable TISH, JEFF MD Unavailable Unavailable TISH, JEFF MD Unavailable Unavailable TISH, JEFF MD Unavailable Unavailable TISH, JEFF MD Unavailable Unavailable TISH, JEFF MD Unavailable Unavailable TISH, JEFF MD Unavailable Unavailable TISH, JEFF MD Unavailable Unavailable TISH, JEFF MD Unavailable Unavailable TISH, JEFF MD Unavailable Unavailable TISH, JEFF MD Unavailable Unavailable TISH, JEFF MD Unavailable Unavailable TISH, JEFF MD Unavailable Unavailable TISH, JEFF MD Unavailable Unavailable TISH, JEFF MD Unavailable Unavailable TISH, JEFF MD Unavailable Unavailable TISH, JEFF MD Unavailable Unavailable TISH, JEFF MD Unavailable Unavailable TISH, JEFF MD Unavailable Unavailable TISH, JEFF MD Unavailable Unavailable TISH, JEFF MD Unavailable Unavailable TISH, JEFF MD Unavailable Unavailable TISH, JEFF MD Unavailable Unavailable TISH, JEFF MD Unavailable Unavailable TISH, JEFF MD Unavailable Unavailable TISH, JEFF MD Unavailable Unavailable TISH, JEFF MD Unavailable Unavailable PATRICIA, L KENDRA PA Unavailable Unavailable PATRICIA, L KENDRA PA Unavailable Unavailable PATRICIA, L KENDRA PA Unavailable Unavailable PATRICIA, L KENDRA PA Unavailable Unavailable PATRICIA, L KENDRA PA Unavailable Unavailable PATRICIA, L KENDRA PA Unavailable Unavailable PATRICIA, L KENDRA PA Unavailable Unavailable PATRICIA, L KENDRA PA Unavailable Unavailable PATRICIA, L KENDRA PA Unavailable Unavailable PATRICIA, L KENDRA PA Unavailable Unavailable PATRICIA, L KENDRA PA Unavailable Unavailable PATRICIA, L KENDRA PA Unavailable Unavailable PATRICIA, L KENDRA PA Unavailable Unavailable PATRICIA, L KENDRA PA Unavailable Unavailable PATRICIA, L KENDRA PA Unavailable Unavailable PATRICIA, L KENDRA PA Unavailable Unavailable [place], V NAN PA-C Unavailable Unavailable Kip, V NAN PA-C Unavailable Unavailable [place], V NAN PA-C Unavailable Unavailable [place], V NAN PA-C Unavailable Unavailable [place], V NAN PA-C Unavailable Unavailable Kip, V NAN PA-C Unavailable Unavailable [place], V NAN PA-C Unavailable Unavailable Kip, V NAN PA-C Unavailable Unavailable Kip, V NAN PA-C Unavailable Unavailable Kip, V NAN PA-C Unavailable Unavailable [place], V NAN PA-C Unavailable Unavailable Kip, V NAN PA-C Unavailable Unavailable Kip, V NAN PA-C Unavailable Unavailable [place], V NAN PA-C Unavailable Unavailable Re-disclosure Warning The records that [...] is protected by Article 27-F of the [facility] Public Health law. If you continue you may have access to information: Regarding HIV / AIDS; Provided by facilities licensed or operated by the [facility] Office of Mental Health; or Provided by the [facility] Office for People With Developmental Disabilities. If such information is present, then the following [facility] mandated warning applies: This information has [...] law may result in a fine or fci sentence or both. A general authorization for the release of medical or other information is NOT sufficient authorization for further disc losure. Allergies and Adverse Reactions Type Description Substance Reaction Status Data Source(s ) Propensity to adverse reactions SULFA ANTIBIOTICS Sulfa Antibiotics Rash Low Active [facility] Low Propensity to adverse reactions PENICILLINS Penicillins Rash Low Ac tive [facility] Low Propensity to adverse reactions BEE VENOM Honey bee venom Anaphy laxis High Active [facility] High Family History Family Member Name Family Member Gender Family Member Status Date o f Status Description Data Source(s) Unknown Unknown Problem MEDENT ([facility]) Encounters Encounter Providers Location Date Indications Data Source(s ) Outpatient Attender: Sheree LAKE Main office - [facility] n 02/01/2021 08:30:00 AM EST MEDENT ([facility]) Outpatient Attender: Phi ANTONIOBARRETT-SJP.BARRETT 021 12:00:00 AM EDT - 01/24/2021 11:49:43 AM EDT [facility] [place] [address] [facility] [facility] [address] 01/05/2021 12:00:00 AM EDT eCW1 ([facility]) Outpatient Attender: JEFF WINSTON MD [facility] office - [facility] 01/04/2021 12:30:00 PM EDT MEDENT ([facility]) Outpatient Attender: Phi Zavala nder: NAN Shin PA-CReferrer: Jovany Leal MD [email or web address] 12/14/2020 12:00:00 AM EDT - 12/14/2020 11:08:44 AM EDT [facility] Outpatient Attender: Zonia LAKE 11/24/19 09:07:30 AM EDT - 11/23/2020 10:01:13 AM EDT [facility] ([facility] ) [place] [address] [address] 11/18/2020 12:00:00 AM EDT eCW1 ([facility]) Outpatient Attender: DAVID Rea/Helena/Tyson alberto/Tracy 10/28/2020 02:10:00 PM EDT MEDENT ([facility]) Out[place] [address] [facility] [address] 10/22/2020 12:00:00 AM EDT eCW1 ([facility]) Outpatient<td ID="encounterTypeDescripti onID0">6 Month follow up with testing</td><td>Scott Brady MD, FACS</td><td>[facility]</td><td>10/05/2020</td><td>8:12AM</td><td>9:10AM</td><td><content ID="encounterDiagnosisID0-0">Cataract Senile Nuclear</content>, <content ID="encounterDiagnosisID0-1">Dry Eye Syndrome</content>, <content ID="encounterDiagnosisID0-2">Taking Medication For Diabetes Long-term Use of Oral Hypoglycemics</content>, <content ID="encounterDiagnosisID0-3">Sicca Syndrome with Organ Involvement</content>, <content ID="encounterDiagnosisID0- 4">Diabetes Mellitus Type 2 Without Complication</content>, <content ID="encounterDiagnosisID0-5">Shelter Use of Other Medications</content></td> Attender: Scott Holley MD, CHRISTOS Brady MD [facility] 10/05/2020 08:12:0 0 AM EDT - 10/05/2020 09:10:00 AM EDT Diabetes Mellitus Type 2 Without ComplicationTaking Medication For Diabetes Long-term Use of Oral HypoglycemicsDiabetes Mellitus Type 2 Without ComplicationTaking Medication For Diabetes Long-term Use of Oral HypoglycemicsDiabetes Mellitus Type 2 Without ComplicationTaking Medication For Diabetes Long-term Use of Oral HypoglycemicsLong Term Use of Other MedicationsSicca Syndrome with Organ InvolvementLong Term Use of Other MedicationsSicca Syndrome with Organ InvolvementLong Term Use of Other MedicationsSicca Syndrome with Organ InvolvementCataract Senile NuclearCataract Senile NuclearCataract Senile NuclearDry Eye SyndromeDry Eye SyndromeDry Eye Syndrome MORGAN (Scott Holley MD [facility]) Diabetes Mellitus Type 2 Without Complic ation Taking Medication For Diabetes Long-term Use of Oral Hypoglycemics Diabetes Mellitus Type 2 Without Complic ation Taking Medication For Diabetes Long-term Use of Oral Hypoglycemics Diabetes Mellitus Type 2 Without Complic ation Taking Medication For Diabetes Long-term Use of Oral Hypoglycemics Cigarette Catcher Use of Other Medications Sicca Syndrome with Organ Involvement Cigarette Catcher Use of Other Medications Sicca Syndrome with Organ Involvement Cigarette Catcher Use of Other Medications Sicca Syndrome with Organ Involvement Cataract Senile Nuclear Cataract Senile Nuclear Cataract Senile Nuclear Dry Eye Syndrome Dry Eye Syndrome Dry Eye Syndrome [place] [address] [address] 09/20/2020 12:00:00 AM EDT eCW1 ([facility]) ([facility] [employer] 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 Exam [address] [place] [address] 09/09/2020 12:00:00 AM EDT eCW1 ([facility]) Unknown [address] [facility] [address] 08/30/2020 12:00:00 AM EDT eCW1 ([facility]) Unknown [address] [facility] [facility] [address] 08/26/2020 12:00:00 AM EDT eCW1 ([facility]) Office Visit Attender: Leonel Stovall MD Physical Therapy 2020 10:00:00 AM EDT MEDENT ([facility]) Office Visit Attender: Leonel Stovall MD Physical Therapy 2020 10:00:00 AM EDT MEDENT ([facility]) Outpatient Attender: Delia Rea/Helena/Rajeev/Reindl 08/03/2020 08:00:00 AM EDT MEDENT ([facility]) Outpatient Attender: Leonel Stovall MD Physical Therapy 07/29/2020 1 0:30:00 AM EDT MEDENT ([facility]) [place] [address] [facility] [address] 07/26/2020 12:00:00 AM EDT eCW1 ([facility]) Outpatient Attender: KENDRA LAKE Main Office 07/22/2020 1 2:45:00 PM EDT MEDENT ([facility]) Office Visit Attender: Leonel Stovall MD Physical Therapy 2020 01:00:00 PM EDT MEDENT ([facility]) Outpatient [address] [facility] [facility] [address] 06/22/2020 12:00:00 AM EDT eCW1 ([facility]) Outpatient Attender: DAVID Rea/Helena/Ang el/Reindl 06/15/2020 01:00:00 PM EDT MEDENT ([facility]) Outpatient Attender: Leonel Stovall MD Physical Therapy 06/15/2020 1 1:15:00 AM EDT MEDENT ([facility]) Outpatient Attender: Delia Rea/Helena/Rajeev/Reindl 05/27/2020 09:00:00 AM EST MEDENT ([facility]) Outpatient Attender: KENDRA LAKE Main Office 05/13/2020 0 9:45:00 AM EST MEDENT ([facility]) [place] [address] [facility] [facility] [facility] [address] 05/13/2020 12:00:00 AM EST eCW1 ([facility]) TeleMedicine Est. Pt. Level 3 [address] [place] [address] 05/12/2020 12:00:00 AM EST eCW1 ([facility]) Unknown [address] [facility], [facility] [address] 05/12/2020 12:00:00 AM EST eCW1 ([facility]) Unknown [address] [facility] [address] 05/10/2020 12:00:00 AM EST eCW1 ([facility]) Unknown [address] [facility] [place] [address] 05/05/2020 12:00:00 AM EST eCW1 ([facility]) Outpatient Attender: LU roy 04/25/2020 08:35:00 AM EST MEDENT ([facility]) Office Visit Attender: MARU GARCIA MD Physical Therapy 01:45:00 PM EST MEDENT ([facility]) Outpatient [address] [facility] [place] [address] 04/07/2020 12:00:00 AM EST eCW1 ([facility]) Outpatient<td ID="encounterTypeDescripti onID1">8 Month Follow-Up</td><td>Scott Brady MD, FACS</td><td>Scott Brady MD [facility]</td><td>04/01/2020</td><td>9:43AM</td><td>10:46AM</td><td><content ID="encounterDiagnosisID1-0">Cataract Senile Nuclear</content>, <content ID="encounterDiagnosisID1-1">Dry Eye Syndrome</content>, <content ID="encounterDiagnosisID1-2">Taking Medication For Diabetes Long-term Use of Oral Hypoglycemics</content>, <content ID="encounterDiagnosisID1-3">Sicca Syndrome with Organ Involvement</content>, <content ID="encounterDiagnosisID1- 4">Diabetes Mellitus Type 2 Without Complication</content>, <content ID="encounterDiagnosisID1-5">Cigarette Catcher Use of Other Medications</content></td> Attender: Scott Holley MD, FACS Scott Brady MD [facility] 04/01/2020 09:43:0 0 AM EST - 04/01/2020 10:46:00 AM EST Diabetes Mellitus Type 2 Without ComplicationTaking Medication For Diabetes Long-term Use of Oral HypoglycemicsDiabetes Mellitus Type 2 Without ComplicationTaking Medication For Diabetes Long-term Use of Oral HypoglycemicsDiabetes Mellitus Type 2 Without ComplicationTaking Medication For Diabetes Long-term Use of Oral HypoglycemicsLong Term Use of Other MedicationsSicca Syndrome with Organ InvolvementLong Term Use of Other MedicationsSicca Syndrome with Organ InvolvementLong Term Use of Other MedicationsSicca Syndrome with Organ InvolvementCataract Senile NuclearCataract Senile NuclearCataract Senile NuclearDry Eye SyndromeDry Eye SyndromeDry Eye Syndrome MORGAN (Scott Holley MD [facility]) Diabetes Mellitus Type 2 Without Complic ation Taking Medication For Diabetes Long-term Use of Oral Hypoglycemics Diabetes Mellitus Type 2 Without Complic ation Taking Medication For Diabetes Long-term Use of Oral Hypoglycemics Diabetes Mellitus Type 2 Without Complic ation Taking Medication For Diabetes Long-term Use of Oral Hypoglycemics Shelter Use of Other Medications Sicca Syndrome with Organ Involvement Shelter Use of Other Medications Sicca Syndrome with Organ Involvement Cigarette Catcher Use of Other Medications Sicca Syndrome with Organ Involvement Cataract Senile Nuclear Cataract Senile Nuclear Cataract Senile Nuclear Dry Eye Syndrome Dry Eye Syndrome Dry Eye Syndrome [place] [address] [facility] [address] 03/16/2020 12:00:00 AM EST eCW1 ([facility]) Outpatient [address] [facility] [facility] [address] 03/15/2020 12:00:00 AM EST eCW1 ([facility]) Unknown [address] [facility] [facility] [address] 03/15/2020 12:00:00 AM EST eCW1 ([facility]) [place] [address] [facility] [address] 03/15/2020 12:00:00 AM EST eCW1 ([facility]) Unknown [address] [facility] [address] 03/05/2020 12:00:00 AM EST eCW1 ([facility]) Outpatient [address] [facility] [facility] [address] 03/02/2020 12:00:00 AM EST eCW1 ([facility]) Emergency Att[facility]: [facility] Jovany Leal MD 01/30/2020 03:46:00 PM EST - 01/30/2020 03:55:00 PM [facility] Patient discharged. [place] [address] [facility] [facility] [address] 01/23/2020 12:00:00 AM EDT eCW1 ([facility]) Outpatient Attender: Delia Rea/Helena/Rajeev/Reindl 01/08/2020 02:30:00 PM EDT MEDENT ([facility]) <td ID="encounterTypeDescriptionID3">BETTY TING - VISUAL FIELD & OCT</td><td>Scott Brady MD, FACS</td><td>[facility]</td><td>01/08/2020</td><td>12:51PM</td><td>1:58PM</td><td><content ID="encounterDiagnosisID3-0">Shelter Use of Other Medications</content>, <content ID="encounterDiagnosisID3-1">Sicca Syndrome with Organ Involvement</content></td>Outpatient Attender: Scott Holley MD, CHRISTOS Brady MD [facility] 01/08/2020 12:51:00 PM EDT - 01/08/2020 01:58:00 PM ED T Sicca Syndrome with Organ InvolvementLong Term Use of Other MedicationsSicca Syndrome with Organ InvolvementLong Term Use of Other MedicationsSicca Syndrome with Organ InvolvementLong Term Use of Other Medications [place] (Scott Holley MD [facility]) Sicca Syndrome with Organ Involvement Cigarette Catcher Use of Other Medications Sicca Syndrome with Organ Involvement Cigarette Catcher Use of Other Medications Sicca Syndrome with Organ Involvement Cigarette Catcher Use of Other Medications <td ID="encounterTypeDescriptionID4">VIS UAL FIELD 10-2</td><td>Scott Holley MD, [facility]</td><td>Scott Brady MD [facility]</td><td>01/08/2020</td><td>12:48PM</td><td>1:30PM</td><td></td>Outpatient Attender: Scott Holley MD, CHRISTOS Brady MD [facility] 01/08/2020 12:48:0 0 PM EDT - 01/08/2020 01:30:00 PM EDT [place] (Scott Holley MD [facility]) <td ID="encounterTypeDescriptionID2">Rx Refills/Changes</td><td>Scott Holley MD, CHRISTOS</td><td></td><td>02/23/2020</td><td>01/08/2020 10:10AM</td><td>01/08/2020 11:59PM</td><td></td>Outpatient Attender: Scott Holley MD, CHRISTOS 01/08/2020 10:10:00 AM EDT - 01/08/2020 11:59:00 PM EDT [place] (Scott Holley MD [facility]) Unknown [address] [facility] [address] 01/07/2020 12:00:00 AM EDT eCW1 ([facility]) Unknown [address] [facility] [address] 01/07/2020 12:00:00 AM EDT eCW1 ([facility]) Outpatient Attender: Marci Rodriguez [facility]-CReferrer: Jovany Leal MD 04/04/2019 12:16:00 PM EST - 04/04/2019 12:16:00 PM [facility] pital Admission cancelled. Disregard status an d admitted date. Outpatient Attender: Trina BARNES 06/29 02:20:00 PM EDT - 06/29/2017 02:20:00 PM EDT [facility] Immunizations Vaccine Date Status Description Data Source(s) COVID-19 VACCINE Pfizer 08/26/2020 12:00:00 AM EDT completed [facility] Vaccine Series Complete: YESThis Data wa s Submitted to [facility] Via [employer]. COVID-19 VACCINE Pfizer 08/05/2020 12:00:00 AM EDT completed [facility] Vaccine Series Complete: NOThis Data was Submitted to [facility] [employer]. Medications Medication Brand Name Start Date Product Form Dose Route Admi nistrative Instructions Pharmacy Instructions Status Indications Reaction Description Data Source(s) Prednisone 10 MG Oral Tablet Prednisone 02/09/2021 12:00:00 AM EST active MEDENT ([facility], ) Azithromycin 250 MG Oral Tablet Azithromycin 02/09/2021 12:00:[address] ORAL active MEDENT ([facility], ) Alprazolam 0.5 MG Oral Tablet ALPRAZOLAM 01/06/2021 12:00:00 AM EDT ta blet 2 TAKE ONE TABLET BY MOUTH 1/2 HOUR BEFORE MRI SCAN MAY REPEAT ONCE IF NEEDED MAXIMUM DAILY DOSE = 2 TABLETS TAKE ONE TABLET BY MOUTH 1/2 HOUR BEFORE MRI SCAN MAY REPEAT ONCE IF NEEDED MAXIMUM DAILY DOSE = 2 TABLETS SOLD: 01/07/2021 [facility] Alprazolam 0.5 MG Oral Tablet Alprazolam 01/06/2021 12:00:00 AM EDT ORAL active MEDENT ([facility], ) 100 mg 12/30/2020 12:00:00 AM EDT tablet 15 TAKE 2 TABLETS BY MOUTH ON THE FIRST DAY, THEN TAKE 1 TABLET DAILY FOR THE NEXT 13 DAYS TAKE 2 TABLETS BY MOUTH ON THE FIRST DAY, THEN TAKE 1 TABLET DAILY FOR THE NEXT 13 DAYS SOLD: 12/30/2020 [facility] 10 mg 12/09/2020 12:00:00 AM EDT catarino 50 SLOWLY DISSOLVE 1 CATARINO BY MOUTH, SWISH AND SWALLOW FIVE TIMES A DAY FOR 10 DAYS SLOWLY DISSOLVE 1 CATARINO BY MOUTH, SWISH AND SWALLOW FIVE TIMES A DAY FOR 10 DAYS SOLD: 12/10/2020 [facility] Levothyroxine Sodium 0.075 MG Oral Table t levothyroxine (SYNTHROID, LEVOTHROID) 75 MCG tablet levothyroxine (SYNTHROID, LEVOTHROID) 75 MCG tablet 12:00:00 AM EDT active TAKE ONE TABLET BY MOUTH EVERY OTHER DAY ALTERNATING WITH 50MCG [facility] Levothyroxine Sodium 0.05 MG Oral Tablet levothyroxine (SYNTHROID, LEVOTHROID) 50 MCG tablet levothyroxine (SYNTHROID, LEVOTHROID) 50 MCG tablet 12:00:00 AM EDT active TAKE ONE TABLET BY MOUTH EVERY OTHER DAY ALTERNATING WITH 75MCG [facility] Sucralfate 100 MG/ML Oral Suspension sucralfate (CARAF ATE) 1 GM/10ML suspension sucralfate (CARAFATE) 1 GM/10ML suspension 12/03/2020 12:00:00 AM EDT active TAKE 10ML BY MOUTH H PENITENTIARY AN HOUR BEFORE MEALS AND AT BEDTIME 3 TIMES DAILY [facility] Hydroxychloroquine Sulfate 200 MG Oral T ablet hydroxychloroquine (PLAQUENIL) 200 MG tablet hydroxychloroquine (PLAQUENIL) 200 MG tablet 12:00:00 AM EDT active TAKE ONE TABLET B Y MOUTH TWO TIMES DAILY [facility] 150 mg 11/23/2020 12:00:00 AM EDT tablet 4 TAKE ONE TABLET BY MOUTH ONE TIME PER WEEK TAKE ONE TABLET BY MOUTH ONE TIME PER WEEK SOLD: 11/23/2020 [facility] 10 mg 11/22/2020 12:00:00 AM EDT tablet 15 TAKE TWO TABLETS BY MOUTH EVERY DAY FOR 5 DAYS THEN TAKE ONE TABLET ONCE DAILY FOR 5 DAYS THEN STOP TAKE TWO TABLETS BY MOUTH EVERY DAY FOR 5 DAYS THEN TAKE ONE TABLET ONCE DAILY FOR 5 DAYS THEN STOP SOLD: 11/23/2020 [facility] Azithromycin 250 MG Oral Tablet Azithromycin 11/22/2020 12:00:00 AM E DT ORAL completed MEDENT ([facility], ) Prednisone 10 MG Oral Tablet Prednisone 11/22/2020 12:00:00 AM EDT ORAL completed MEDENT ([facility], ) 250 mg 11/22/2020 12:00:00 AM EDT tablet 6 TAKE TWO TABLETS BY MOUTH AT ONCE ON THE FIRST DAY THEN TAKE ONE DAILY THEREAFTER TAKE TWO TABLETS BY MOUTH AT ONCE ON THE FIRST DAY THEN TAKE ONE DAILY THEREAFTER SOLD: 11/23/2020 [facility] Metformin hydrochloride 500 MG Oral Tablet metFORMIN ( GLUCOPHAGE) 500 MG tablet metFORMIN (GLUCOPHAGE) 500 MG tablet 11/03/2020 12:00:00 AM EDT active TAKE ONE TABLET BY MOUTH TWO ZONIA ES A DAY WITH [facility] 100,000 unit/mL 10/29/2020 12:00:00 AM EDT suspension 60 USE 5ML TO SWISH (GARGLE) AND SWALLOW, UP TO 4 TIMES DAILY FOR 2-3 DAYS USE 5ML TO SWISH (GARGLE) AND SWALLOW, UP TO 4 TIMES DAILY FOR 2-3 DAYS SOLD: 10/29/2020 [facility] 100 mg/mL 10/29/2020 12:00:00 AM EDT suspension 840 TAKE 10ML BY MOUTH HALF AN HOUR BEFORE MEALS, AND AT BEDTIME (3 TIMES DAILY) TAKE 10ML BY MOUTH HALF AN HOUR BEFORE MEALS, AND AT BEDTIME (3 TIMES DAILY) SOLD: 10/29/2020 [facility] Sucralfate 100 MG/ML Oral Suspension Sucralfate 10/29/2020 12:00:00 A M EDT ORAL completed MEDENT ([facility], ) 100 mg/mL 10/29/2020 12:00:00 AM EDT suspension 840 TAKE 10ML BY MOUTH HALF AN HOUR BEFORE MEALS, AND AT BEDTIME (3 TIMES DAILY) TAKE 10ML BY MOUTH HALF AN HOUR BEFORE MEALS, AND AT BEDTIME (3 TIMES DAILY) SOLD: 12/04/2020 [facility] Azithromycin 500 MG Oral Tablet Azithromycin 500 MG 10/22/2020 1 2:00:00 AM EDT 1.0 {tablet} active Azithromyci n 500 MG eCW1 ([facility]) Nebulizer/Tubing/Mouthpiece UNK 10/22/2020 12:00:00 AM EDT active Nebulizer/Tubing/Mouthpiece eCW1 ([facility]) Diclofenac Sodium 0.01 MG/MG Topical Gel [Voltaren] Voltaren 1 % Voltaren 1 % 10/22/2020 12:00:00 AM EDT active Voltaren 1 % eCW1 ([facility]) Azithromycin 500 MG Oral Tablet Azithromycin 500 MG 10/22/2020 1 2:00:00 AM EDT 1.0 {tablet} active Azithromyci n 500 MG eCW1 ([facility]) Verapamil hydrochloride 120 MG Extended Release Oral Tablet Verapamil HCl ER 120 MG Verapamil HCl ER 120 MG 10/22/2020 12:00:00 AM EDT 1.0 {tablet} active Verapamil HCl ER 120 MG eCW1 ([facility]) 120 mg 10/22/2020 12:00:00 AM EDT tablet extended release 30 TAKE ONE TABLET BY MOUTH EVERY DAY TAKE ONE TABLET BY MOUTH EVERY DAY SOLD: 10/22/2020 [facility] Verapamil hydrochloride 120 MG Extended Release Oral Tablet Verapamil HCl ER 120 MG Verapamil HCl ER 120 MG 10/22/2020 12:00:00 AM EDT 1.0 {tablet} active Verapamil HCl ER 120 MG eCW1 ([facility]) Azithromycin 500 MG Oral Tablet Azithromycin 500 MG 10/22/2020 1 2:00:00 AM EDT 1.0 {tablet} active Azithromyci n 500 MG eCW1 ([facility]) 500 mg 10/22/2020 12:00:00 AM EDT tablet 5 TAKE ONE TABLET BY MOUTH EVERY DAY FOR 5 DAYS TAKE ONE TABLET BY MOUTH EVERY DAY FOR 5 DAYS SOLD: 10/22/2020 [facility] Nebulizer/Tubing/Mouthpiece UNK 10/22/2020 12:00:00 AM EDT active Nebulizer/Tubing/Mouthpiece eCW1 ([facility]) . UNIT 10/22/2020 12:00:00 AM EDT Misc 1 USE A S DIRECTED USE DIRECTED SOLD: 11/23/2020 [facility] Verapamil hydrochloride 120 MG Extended Release Oral Tablet Verapamil HCl ER 120 MG Verapamil HCl ER 120 MG 10/22/2020 12:00:00 AM EDT 1.0 {tablet} active Verapamil HCl ER 120 MG eCW1 ([facility]) Diclofenac Sodium 0.01 MG/MG Topical Gel [Voltaren] Voltaren 1 % Voltaren 1 % 10/22/2020 12:00:00 AM EDT active Voltaren 1 % eCW1 ([facility]) Nebulizer/Tubing/Mouthpiece UNK 10/22/2020 12:00:00 AM EDT active Nebulizer/Tubing/Mouthpiece eCW1 ([facility]) Diclofenac Sodium 0.01 MG/MG Topical Gel [Voltaren] Voltaren 1 % Voltaren 1 % 10/22/2020 12:00:00 AM EDT active Voltaren 1 % eCW1 ([facility]) 1 % 10/22/2020 12:00:00 AM EDT gel 100 APPLY 1 TO 2 GRAMS FOUR TIMES A DAY APPLY 1 TO 2 GRAMS FOUR TIMES A DAY SOLD: 10/22/2020 [facility] . UNIT 10/22/2020 12:00:00 AM EDT Misc 1 USE A S DIRECTED USE DIRECTED SOLD: 10/25/2020 [facility] Albuterol 0.83 MG/ML Inhalant Solution a lbuterol (PROVENTIL) (2.5 MG/3ML) 0.083% nebulizer solution albuterol (PROVENTIL) (2.5 MG/3ML) 0.083 % nebulizer solution 10/20/2020 12:00:00 AM EDT active INHALE THE CONTENTS OF ONE VIAL VIA NEBULIZER FOUR TIMES A DAY NEEDED [facility] montelukast 10 MG Oral Tablet montelukast (SINGULAIR) 10 MG tablet montelukast (SINGULAIR) 10 MG tablet 09/06/2020 12:00:00 AM EDT 10 mg Oral active Take 10 mg by mouth daily [facility] 2 % 08/30/2020 12:00:00 AM EDT solution 100 APPLY 1ML BY MOUTH EVERY 3 HOURS NEEDED APPLY 1ML BY MOUTH EVERY 3 HOURS NEEDED SOLD: 08/31/2020 [facility] 100 mg 08/27/2020 12:00:00 AM EDT tablet 11 TAKE TWO TABLETS BY MOUTH EVERY DAY ON DAY 1 THEN TAKE ONE TABLET DAILY TAKE TWO TABLETS BY MOUTH EVERY DAY ON DAY 1 THEN TAKE ONE TABLET DAILY SOLD: 08/27/2020 [facility] Lidocaine Hydrochloride 40 MG/ML Mucous Membrane Topical Solution Lidocaine HCl 4 % Lidocaine HCl 4 % 08/26/2020 12:00:00 AM EDT active Lidocaine HCl 4 % eCW1 ([facility]) 10 mg 08/03/2020 12:00:00 AM EDT tablet 18 TAKE 3 TABLETS BY MOUTH ONCE DAILY FOR 3 DAYS, THEN 2 ONCE DAILY FOR 3 DAYS, THEN 1 ONCE DAILY FOR 3 DAYS THEN STOP TAKE 3 TABLETS BY MOUTH ONCE DAILY FOR 3 DAYS, THEN 2 ONCE DAILY FOR 3 DAYS, THEN 1 ONCE DAILY FOR 3 DAYS THEN STOP SOLD: 08/05/2020 [facility] 120 ACTUAT Fluticasone propionate 0.22 MG/ACTUAT Meter ed Dose Inhaler [Flovent] Flovent HFA 08/03/2020 12:00:00 AM EDT RESPIRATORY activ e MEDENT ([facility], ) Prednisone 10 MG Oral Tablet Prednisone 08/03/2020 12:00:00 AM EDT completed MEDENT ([facility], ) Fluconazole 100 MG Oral Tablet Fluconazole 100 MG 06/22/2020 12:00: 00 AM EDT active Fluconazole 100 MG eCW1 ([facility]) Fluconazole 100 MG Oral Tablet Fluconazole 100 MG 06/22/2020 12:00: 00 AM EDT active Fluconazole 100 MG eCW1 ([facility]) Fluconazole 100 MG Oral Tablet Fluconazole 100 MG 06/22/2020 12:00: 00 AM EDT active Fluconazole 100 MG eCW1 ([facility]) Fluconazole 100 MG Oral Tablet Fluconazole 100 MG 06/22/2020 12:00: 00 AM EDT suspended Fluconazole 100 MG eCW 1 ([facility]) Fluconazole 100 MG Oral Tablet Fluconazole 100 MG 06/22/2020 12:00: 00 AM EDT active Fluconazole 100 MG eCW1 ([facility]) Fluconazole 100 MG Oral Tablet Fluconazole 100 MG 06/22/2020 12:00: 00 AM EDT active Fluconazole 100 MG eCW1 ([facility]) Fluconazole 100 MG Oral Tablet Fluconazole 100 MG 06/22/2020 12:00: 00 AM EDT suspended Fluconazole 100 MG eCW 1 ([facility]) Fluconazole 100 MG Oral Tablet Fluconazole 100 MG 06/22/2020 12:00: 00 AM EDT suspended Fluconazole 100 MG eCW 1 ([facility]) 100 mg 06/22/2020 12:00:00 AM EDT tablet 11 TAKE TWO TABLETS BY MOUTH FOR DAY ONE THEN TAKE ONE TABLET DAILY TAKE TWO TABLETS BY MOUTH FOR DAY ONE TH EN TAKE ONE TABLET DAILY SOLD: 06/22/2020 [facility] Fluconazole 100 MG Oral Tablet Fluconazole 100 MG 06/22/2020 12:00: 00 AM EDT active Fluconazole 100 MG eCW1 ([facility]) Sucralfate 1000 MG Oral Tablet Sucralfate 06/15/2020 12:00:00 AM EDT ORAL completed MEDENT ([facility]) 1 gram 06/15/2020 12:00:00 AM EDT tablet 90 TAKE ONE TABLET BY MOUTH TWO TO THREE TIMES A DAY BEFORE MEALS COURSE OF 6 WEEKS TAKE ONE TABLET BY MOUTH TWO TO THREE TIMES A DAY BEFORE MEALS COURSE OF 6 WEEKS SOLD: 07/29/2020 [facility] 100,000 unit/mL 06/15/2020 12:00:00 AM EDT suspension 60 TAKE 5 MLS BY MOUTH AND SWISH, GARGLE AND SWALLOW UP TO FOUR TIMES A DAY FOR TWO TO THREE DAYS TAKE 5 MLS BY MOUTH AND SWISH, GARGLE AND SWALLOW UP TO FOUR TIMES A DAY FOR TWO TO THREE DAYS SOLD: 06/16/2020 [facility] 1 gram 06/15/2020 12:00:00 AM EDT tablet 90 TAKE ONE TABLET BY MOUTH TWO TO THREE TIMES A DAY BEFORE MEALS COURSE OF 6 WEEKS TAKE ONE TABLET BY MOUTH TWO TO THREE TIMES A DAY BEFORE MEALS COURSE OF 6 WEEKS SOLD: 06/16/2020 [facility] 120 ACTUAT Fluticasone propionate 0.23 M G/ACTUAT / salmeterol 0.021 MG/ACTUAT Metered Dose Inhaler [Advair] Advair HFA 05/27/2020 12:00:00 AM EST RESPIRATORY completed MEDENT ( [facility], ) 100,000 unit/mL 05/19/2020 12:00:00 AM EST suspension 60 SWISH (GARGLE) AND SWALLOW 5MLS UP TO 4 TIMES A DAY FOR 2-3 DAYS SWISH (GARGLE) AND SWALLOW 5MLS UP TO 4 TIMES A DAY FOR 2-3 DAYS SOLD: 05/20/2020 [facility] Nystatin [id number] UNT/ML Oral Suspension Nystatin 05/19/2020 12:00:00 AM EST active MEDENT ([facility], ) Bisoprolol Fumarate 5 MG Oral Tablet Bisoprolol Fumarate 12:00:00 AM EST ORAL completed MEDENT ([facility]) 5 mg 05/14/2020 12:00:00 AM EST tablet 15 TAKE ONE-HALF TABLET BY MOUTH ONCE DAILY TAKE ONE-HALF TABLET BY MOUTH ONCE DAILY SOLD: 05/15/2020 [facility] carvedilol 3.125 MG Oral Tablet Carvedilol 05/13/2020 12:00:00 AM EST ORAL completed MEDENT ([facility]) carvedilol 3.125 MG Oral Tablet CARVEDILOL 05/13/2020 12:00:00 AM EST tablet 60 TAKE ONE TABLET BY MOUTH TWICE A DAY TAKE ONE TABLET BY MOUT H TWICE A DAY SOLD: 05/13/2020 [facility] Hydroxychloroquine Sulfate 200 MG Oral Tablet [Plaquenil] Pl aquenil 05/12/2020 12:00:00 AM EST ORAL active M EDENT ([facility]) Metformin hydrochloride 1000 MG Oral Tablet Metformin HCL 05/12/2020 12:00:00 AM EST ORAL active MEDENT ([facility]) Prednisone 10 MG Oral Tablet Prednisone 05/12/2020 12:00:00 AM EST ORAL completed MEDENT ([facility]) Sucralfate 1000 MG Oral Tablet Sucralfate 05/12/2020 12:00:00 AM EST ORAL active MEDENT ([facility]) 10 mg 05/07/2020 12:00:00 AM EST tablet 30 TAKE 4 TABLETS BY MOUTH ONCE DAILY FOR 3 DAYS THEN TAKE 3 TABLETS ONCE DAILY FOR 3 DAYS THEN TAKE 2 TABLETS ONCE DAILY FOR 3 DAYS THEN TAKE 1 TABLET ONCE DAILY FOR 3 DAYS AND STOP TAKE 4 TABLETS BY MOUTH ONCE DAILY FOR 3 DAYS THEN TAKE 3 TABLETS ONCE DAILY FOR 3 DAYS THEN TAKE 2 TABLETS ONCE DAILY FOR 3 DAYS THEN TAKE 1 TABLET ONCE DAILY FOR 3 DAYS AND STOP SOLD: 05/07/2020 [facility] 1 gram 05/07/2020 12:00:00 AM EST tablet 120 TAKE 1 TABLET BY MOUTH BEFORE MEALS AND AT BEDTIME TAKE 1 TABLET BY MOUTH BEFORE MEALS AND AT BEDTIME [facility] 10 mg 04/28/2020 12:00:00 AM EST tablet [...] TO 12 SOLD: 04/29/2020 [facility] 100 mg 04/25/2020 12:00:00 AM EST capsule 20 TAKE ONE CAPSULE BY MOUTH TWICE A DAY FOR 10 DAYS TAKE ONE CAPSULE BY MOUTH TWICE A DAY FOR 10 DAYS SOLD : 04/25/2020 [facility] 12 HR Guaifenesin 1200 MG Extended Release Oral Tablet Guaif enesin ER 04/25/2020 12:00:00 AM EST ORAL active MEDENT ([facility]) Prednisone 20 MG Oral Tablet Prednisone 04/25/2020 12:00:00 AM EST ORAL active MEDENT ([facility]) 20 mg 04/25/2020 12:00:00 AM EST tablet 10 TAKE TWO TABLETS BY MOUTH EVERY DAY FOR 5 DAYS TAKE TWO TABLETS BY MOUTH EVERY DAY FOR 5 DAYS SOLD: [facility] Doxycycline Monohydrate 100 MG Oral Capsule Doxycycline [place] hydrate 04/25/2020 12:00:00 AM EST ORAL active M EDENT ([facility]) 150 mg 03/29/2020 12:00:00 AM EST tablet 2 TAKE ONE TABLET BY MOUTH EVERY DAY, REPEAT ONCE IN 3 DAYS TAKE ONE TABLET BY MOUTH EVERY DAY, REPE AT ONCE IN 3 DAYS SOLD: 03/31/2020 [facility] Fluconazole 150 MG Oral Tablet [Diflucan] Diflucan 150 MG Di flucan 150 MG 03/15/2020 12:00:00 AM EST 1.0 {tablet} suspended Diflucan 150 MG eCW1 ([facility]) Ciprofloxacin 500 MG Oral Tablet [Cipro] Cipro 500 MG Cipro 500 MG 03/15/2020 12:00:00 AM EST 1.0 {tablet} suspended Cipro 500 MG eCW1 ([facility]) Fluconazole 150 MG Oral Tablet [Diflucan] Diflucan 150 MG Di flucan 150 MG 03/15/2020 12:00:00 AM EST 1.0 {tablet} suspended Diflucan 150 MG eCW1 ([facility]) Ciprofloxacin 500 MG Oral Tablet [Cipro] Cipro 500 MG Cipro 500 MG 03/15/2020 12:00:00 AM EST 1.0 {tablet} active Ci pro 500 MG eCW1 ([facility]) Fluconazole 150 MG Oral Tablet [Diflucan] Diflucan 150 MG Di flucan 150 MG 03/15/2020 12:00:00 AM EST 1.0 {tablet} suspended Diflucan 150 MG eCW1 ([facility]) Ciprofloxacin 500 MG Oral Tablet [Cipro] Cipro 500 MG Cipro 500 MG 03/15/2020 12:00:00 AM EST 1.0 {tablet} suspended Cipro 500 MG eCW1 ([facility]) Fluconazole 150 MG Oral Tablet [Diflucan] Diflucan 150 MG Di flucan 150 MG 03/15/2020 12:00:00 AM EST 1.0 {tablet} active Diflucan 150 MG eCW1 ([facility]) Fluconazole 150 MG Oral Tablet [Diflucan] Diflucan 150 MG Di flucan 150 MG 03/15/2020 12:00:00 AM EST 1.0 {tablet} active Diflucan 150 MG eCW1 ([facility]) Fluconazole 150 MG Oral Tablet [Diflucan] Diflucan 150 MG Di flucan 150 MG 03/15/2020 12:00:00 AM EST 1.0 {tablet} suspended Diflucan 150 MG eCW1 ([facility]) Ciprofloxacin 500 MG Oral Tablet [Cipro] Cipro 500 MG Cipro 500 MG 03/15/2020 12:00:00 AM EST 1.0 {tablet} active Ci pro 500 MG eCW1 ([facility]) Ciprofloxacin 500 MG Oral Tablet [Cipro] Cipro 500 MG Cipro 500 MG 03/15/2020 12:00:00 AM EST 1.0 {tablet} suspended Cipro 500 MG eCW1 ([facility]) Fluconazole 150 MG Oral Tablet [Diflucan] Diflucan 150 MG Di flucan 150 MG 03/15/2020 12:00:00 AM EST 1.0 {tablet} active Diflucan 150 MG eCW1 ([facility]) Fluconazole 150 MG Oral Tablet [Diflucan] Diflucan 150 MG Di flucan 150 MG 03/15/2020 12:00:00 AM EST 1.0 {tablet} suspended Diflucan 150 MG eCW1 ([facility]) Ciprofloxacin 500 MG Oral Tablet [Cipro] Cipro 500 MG Cipro 500 MG 03/15/2020 12:00:00 AM EST 1.0 {tablet} suspended Cipro 500 MG eCW1 ([facility]) 500 mg 03/15/2020 12:00:00 AM EST tablet 14 TAKE ONE TABLET BY MOUTH EVERY 12 HOURS FOR 7 DAYS TAKE ONE TABLET BY MOUTH EVERY 12 HOURS FOR 7 DAYS [facility] Fluconazole 150 MG Oral Tablet [Diflucan] Diflucan 150 MG Di flucan 150 MG 03/15/2020 12:00:00 AM EST 1.0 {tablet} active Diflucan 150 MG eCW1 ([facility]) Fluconazole 150 MG Oral Tablet [Diflucan] Diflucan 150 MG Di flucan 150 MG 03/15/2020 12:00:00 AM EST 1.0 {tablet} suspended Diflucan 150 MG eCW1 ([facility]) Ciprofloxacin 500 MG Oral Tablet [Cipro] Cipro 500 MG Cipro 500 MG 03/15/2020 12:00:00 AM EST 1.0 {tablet} active Ci pro 500 MG eCW1 ([facility]) Ciprofloxacin 500 MG Oral Tablet [Cipro] Cipro 500 MG Cipro 500 MG 03/15/2020 12:00:00 AM EST 1.0 {tablet} active Ci pro 500 MG eCW1 ([facility]) Ciprofloxacin 500 MG Oral Tablet [Cipro] Cipro 500 MG Cipro 500 MG 03/15/2020 12:00:00 AM EST 1.0 {tablet} suspended Cipro 500 MG eCW1 ([facility]) Ciprofloxacin 500 MG Oral Tablet [Cipro] Cipro 500 MG Cipro 500 MG 03/15/2020 12:00:00 AM EST 1.0 {tablet} suspended Cipro 500 MG eCW1 ([facility]) Fluconazole 150 MG Oral Tablet Fluconazole 150 MG 03/05/2020 12:00: 00 AM EST 1.0 {tablet} suspended Fluconazole 150 M G eCW1 ([facility]) Fluconazole 150 MG Oral Tablet Fluconazole 150 MG 03/05/2020 12:00: 00 AM EST 1.0 {tablet} suspended Fluconazole 150 M G eCW1 ([facility]) Fluconazole 150 MG Oral Tablet Fluconazole 150 MG 03/05/2020 12:00: 00 AM EST 1.0 {tablet} suspended Fluconazole 150 M G eCW1 ([facility]) Ciprofloxacin 250 MG Oral Tablet Ciprofloxacin HCl 250 MG Ciprofloxacin HCl 250 MG 03/05/2020 12:00:00 AM EST 1.0 {tablet} suspe nded Ciprofloxacin HCl 250 MG eCW1 ([facility]) Fluconazole 150 MG Oral Tablet Fluconazole 150 MG 03/05/2020 12:00: 00 AM EST 1.0 {tablet} suspended Fluconazole 150 M G eCW1 ([facility]) Ciprofloxacin 250 MG Oral Tablet Ciprofloxacin HCl 250 MG Ciprofloxacin HCl 250 MG 03/05/2020 12:00:00 AM EST 1.0 {tablet} suspe nded Ciprofloxacin HCl 250 MG eCW1 ([facility]) Ciprofloxacin 250 MG Oral Tablet Ciprofloxacin HCl 250 MG Ciprofloxacin HCl 250 MG 03/05/2020 12:00:00 AM EST 1.0 {tablet} suspe nded Ciprofloxacin HCl 250 MG eCW1 ([facility]) Fluconazole 150 MG Oral Tablet Fluconazole 150 MG 03/05/2020 12:00: 00 AM EST 1.0 {tablet} suspended Fluconazole 150 M G eCW1 ([facility]) Fluconazole 150 MG Oral Tablet Fluconazole 150 MG 03/05/2020 12:00: 00 AM EST 1.0 {tablet} suspended Fluconazole 150 M G eCW1 ([facility]) Ciprofloxacin 250 MG Oral Tablet Ciprofloxacin HCl 250 MG Ciprofloxacin HCl 250 MG 03/05/2020 12:00:00 AM EST 1.0 {tablet} suspe nded Ciprofloxacin HCl 250 MG eCW1 ([facility]) Ciprofloxacin 250 MG Oral Tablet Ciprofloxacin HCl 250 MG Ciprofloxacin HCl 250 MG 03/05/2020 12:00:00 AM EST 1.0 {tablet} activ e Ciprofloxacin HCl 250 MG eCW1 ([facility]) Ciprofloxacin 250 MG Oral Tablet Ciprofloxacin HCl 250 MG Ciprofloxacin HCl 250 MG 03/05/2020 12:00:00 AM EST 1.0 {tablet} suspe nded Ciprofloxacin HCl 250 MG eCW1 ([facility]) 250 mg 03/05/2020 12:00:00 AM EST tablet 6 TAKE ONE TABLET BY MOUTH EVERY 12 HOURS TAKE ONE TABLET BY MOUTH EVERY 12 HOURS SOLD: 03/05/2020 [facility] Fluconazole 150 MG Oral Tablet Fluconazole 150 MG 03/05/2020 12:00: 00 AM EST 1.0 {tablet} suspended Fluconazole 150 M G eCW1 ([facility]) Fluconazole 150 MG Oral Tablet Fluconazole 150 MG 03/05/2020 12:00: 00 AM EST 1.0 {tablet} active Fluconazole 150 MG eCW1 ([facility]) Ciprofloxacin 250 MG Oral Tablet Ciprofloxacin HCl 250 MG Ciprofloxacin HCl 250 MG 03/05/2020 12:00:00 AM EST 1.0 {tablet} activ e Ciprofloxacin HCl 250 MG eCW1 ([facility]) Ciprofloxacin 250 MG Oral Tablet Ciprofloxacin HCl 250 MG Ciprofloxacin HCl 250 MG 03/05/2020 12:00:00 AM EST 1.0 {tablet} suspe nded Ciprofloxacin HCl 250 MG eCW1 ([facility]) 150 mg 03/05/2020 12:00:00 AM EST tablet 2 TAKE ONE TABLET BY MOUTH, REPEAT IN THREE DAYS TAKE ONE TABLET BY MOUTH, REPEAT IN THREE DAYS SOLD: 03/05/2020 [facility] Ciprofloxacin 250 MG Oral Tablet Ciprofloxacin HCl 250 MG Ciprofloxacin HCl 250 MG 03/05/2020 12:00:00 AM EST 1.0 {tablet} suspe nded Ciprofloxacin HCl 250 MG eCW1 ([facility]) Ciprofloxacin 250 MG Oral Tablet Ciprofloxacin HCl 250 MG Ciprofloxacin HCl 250 MG 03/05/2020 12:00:00 AM EST 1.0 {tablet} suspe nded Ciprofloxacin HCl 250 MG eCW1 ([facility]) Fluconazole 150 MG Oral Tablet Fluconazole 150 MG 03/05/2020 12:00: 00 AM EST 1.0 {tablet} suspended Fluconazole 150 M G eCW1 ([facility]) Fluconazole 150 MG Oral Tablet Fluconazole 150 MG 03/05/2020 12:00: 00 AM EST 1.0 {tablet} suspended Fluconazole 150 M G eCW1 ([facility]) Ciprofloxacin 250 MG Oral Tablet Ciprofloxacin HCl 250 MG Ciprofloxacin HCl 250 MG 03/05/2020 12:00:00 AM EST 1.0 {tablet} suspe nded Ciprofloxacin HCl 250 MG eCW1 ([facility]) Ciprofloxacin 250 MG Oral Tablet Ciprofloxacin HCl 250 MG Ciprofloxacin HCl 250 MG 03/05/2020 12:00:00 AM EST 1.0 {tablet} suspe nded Ciprofloxacin HCl 250 MG eCW1 ([facility]) Fluconazole 150 MG Oral Tablet Fluconazole 150 MG 03/05/2020 12:00: 00 AM EST 1.0 {tablet} active Fluconazole 150 MG eCW1 ([facility]) 150 mg 03/05/2020 12:00:00 AM EST tablet 2 TAKE ONE TABLET BY MOUTH, REPEAT IN THREE DAYS TAKE ONE TABLET BY MOUTH, REPEAT IN THREE DAYS SOLD: 03/15/2020 [facility] Fluconazole 150 MG Oral Tablet Fluconazole 150 MG 03/05/2020 12:00: 00 AM EST 1.0 {tablet} suspended Fluconazole 150 M G eCW1 ([facility]) Cyclosporine 0.5 MG/ML Ophthalmic Suspen katiuska [Restasis] Restasis 0.05% Ophthalmic Emulsion Restasis 0.05% Ophthalmic Emulsion 02/23/2020 12:00:00 AM EST active cyclospo rine 0.5 MG/ML Ophthalmic Suspension [Restasis] SOCORRO (Scott Holley [facility]) 200 mg 01/20/2020 12:00:00 AM EDT capsule 90 TAKE ONE CAPSULE BY MOUTH THREE TIMES A DAY NEEDED TAKE ONE CAPSULE BY MOUTH THREE TIMES A DAY NEEDED SOLD: 01/24/2020 [facility] 2 ML Sodium Hyaluronate 10 MG/ML Prefilled Syringe [Euflexxa ] Euflexxa 01/09/2020 12:00:00 AM EDT active MEDENT ([facility]) Prednisone 10 MG Oral Tablet Prednisone 01/08/2020 12:00:00 AM EDT ORAL completed MEDENT ([facility], ) 10 mg 01/08/2020 12:00:00 AM EDT [...] DAYS AND STOP SOLD: 01/08/2020 [facility] Acetaminophen 325 MG / Hydrocodone Bitartrate 5 MG Ora l Tablet Hydrocodone-Acetaminophen 01/05/2020 12:00:00 AM EDT active MEDENT ([facility]) 100,000 unit/mL 12/18/2019 12:00:00 AM EDT suspension 200 TAKE 5ML BY MOUTH FOUR TIMES A DAY TAKE 5ML BY MOUTH FOUR TIMES A DAY SOLD: 11/23/2020 [facility] 100,000 unit/mL 12/18/2019 12:00:00 AM EDT suspension 200 TAKE 5ML BY MOUTH FOUR TIMES A DAY TAKE 5ML BY MOUTH FOUR TIMES A DAY SOLD: 06/26/2020 [facility] 100,000 unit/mL 12/18/2019 12:00:00 AM EDT suspension 200 TAKE 5ML BY MOUTH FOUR TIMES A DAY TAKE 5ML BY MOUTH FOUR TIMES A DAY SOLD: 10/22/2020 [facility] 100,000 unit/mL 12/18/2019 12:00:00 AM EDT suspension 200 TAKE 5ML BY MOUTH FOUR TIMES A DAY TAKE 5ML BY MOUTH FOUR TIMES A DAY SOLD: 12/23/2019 [facility] Azithromycin 250 MG Oral Tablet Azithromycin 10/27/2019 12:00:00 AM E DT ORAL completed MEDENT ([facility], ) 60 ACTUAT formoterol fumarate 0.005 MG/A CTUAT / mometasone furoate 0.2 MG/ACTUAT Metered Dose Inhaler [Dulera] Dulera 10/22/2019 12:00:00 AM EDT RESPIRATORY completed MEDENT ([facility]) Prednisone 10 MG Oral Tablet Prednisone 10/22/2019 12:00:00 AM EDT completed MEDENT ([facility]) 0.625 mg/gram 08/28/2019 12:00:00 AM EDT cream 30 INSERT 1/2 GRAM TWICE A WEEK AT BEDTIME VAGINALLY INSERT 1/2 GRAM TWICE A WEEK AT BEDTIME VAGINALLY SOLD: 07/29/2020 [facility] 0.625 mg/gram 08/28/2019 12:00:00 AM EDT cream 30 INSERT 1/2 GRAM TWICE A WEEK AT BEDTIME VAGINALLY INSERT 1/2 GRAM TWICE A WEEK AT BEDTIME VAGINALLY SOLD: 04/09/2020 [facility] 137 mcg (0.1 %) 08/08/2019 12:00:00 AM EDT aerosol,spray 30 USE 2 SPRAYS IN EACH NOSTRIL EVERY MORNING USE 2 SPRAYS IN EACH NOSTRIL EVERY MORNING SOLD: 04/09/2020 [facility] 137 mcg (0.1 %) 08/08/2019 12:00:00 AM EDT aerosol,spray 30 USE 2 SPRAYS IN EACH NOSTRIL EVERY MORNING USE 2 SPRAYS IN EACH NOSTRIL EVERY MORNING SOLD: 07/29/2020 [facility] 15 mg 07/29/2019 12:00:00 AM EDT tablet 30 TAKE ONE TABLET BY MOUTH EVERY DAY TAKE ONE TABLET BY MOUTH EVERY DAY SOLD: 04/09/2020 [facility] . UNIT 07/23/2019 12:00:00 AM EDT Misc 2 DI RECTED DIRECTED SOLD: 05/20/2020 [facility] 2.5 % 05/29/2019 12:00:00 AM EST cream with perineal suzan licator 28 APPLY TO RECTUM TWO TIMES A DAY TO THREE TIMES A DAY NEEDED FOR RECTAL BLEEDING APPLY TO RECTUM TWO TIMES A DAY TO THREE TIMES A DAY NEEDED FOR RECTAL BLEEDING SOLD: 05/15/2020 [facility] 2.5 % 05/29/2019 12:00:00 AM EST cream with perineal suzan licator 28 APPLY TO RECTUM TWO TIMES A DAY TO THREE TIMES A DAY NEEDED FOR RECTAL BLEEDING APPLY TO RECTUM TWO TIMES A DAY TO THREE TIMES A DAY NEEDED FOR RECTAL BLEEDING SOLD: 04/09/2020 [facility] 200 mg 04/30/2019 12:00:00 AM EST capsule 90 TAKE ONE CAPSULE BY MOUTH THREE TIMES A DAY NEEDED TAKE ONE CAPSULE BY MOUTH THREE TIMES A DAY NEEDED SOLD: 12/26/2019 [facility] Cyclosporine 0.5 MG/ML Ophthalmic Suspen katiuska [Restasis] Restasis 0.05% Ophthalmic Emulsion Restasis 0.05% Ophthalmic Emulsion 09/09/2018 12:00:00 AM EDT aborted cyclospo rine 0.5 MG/ML Ophthalmic Suspension [Restasis] [facility]RO ([facility]) Sucralfate 1000 MG Oral Tablet sucralfate (CARAFATE) 1 g tablet sucralfate (CARAFATE) 1 g tablet 1 g Oral aborted Take 1 g by mouth 3 (three) times a day [facility] Insurance Providers Payer name Policy type / Coverage type Policy ID Covered alliance party ID Covered alliance party's relationship to dejesus Policy Dejesus Plan Information [id number] [employer] [id number] Self [id number] [facility] [id number] Self [id number] [facility] [id number] [facility] [id number] [facility] [id number] [facility] [id number] [facility] Commercial [id number] Self [id number] [facility] [id number] R [id number] [facility] [id number] [place] [id number] MEDICARE [id number] [place] [id number] MEDICARE [id number] [place] [id number] G21 MEDICARE [id number] [facility] [employer] [id number] Self [id number] [place] Medicare Part B [id number] Self [id number] [place] Medicare [place] B [id number] Self [id number] ANSI-Commercial [id number] [facility] B [id number] Self [id number] ANSI-Commercial [id number] ANSI-Commercial [id number] ANSI-Commercial [id number] ANSI-Commercial [id number] ANSI-Commercial [id number] ANSI-Commercial [id number] [employer] [place] Other 0 [id number] Self 0 [employer] [place] Other 0 [id number] Self 0 ANSI-Commercial [id number] ANSI-Commercial [id number] ANSI-Commercial [id number] ANSI-Commercial [id number] ANSI-Commercial [id number] [facility] [place] [facility] [place] [place] [id number] Self [id number] ANSI-Commercial [id number] ANSI-Commercial [id number] ANSI-Commercial [id number] ANSI-Commercial [id number] ANSI-Commercial [id number] ANSI-Commercial [id number] [facility] [place] [id number] ANSI-Commercial [id number] ANSI-Commercial [id number] ANSI-Commercial [id number] ANSI-Commercial [id number] ANSI-Commercial [id number] ANSI-Commercial [id number] ANSI-Commercial [id number] ANSI-Commercial [id number] ANSI-Commercial [id number] ANSI-Commercial [id number] ANSI-Commercial [id number] ANSI-Commercial [id number] [employer] [place] Other 0 [id number] Self 0 [employer] [place] Other 0 [id number] Self 0 [employer] [place] Other 0 [id number] Self 0 ANSI-Commercial [id number] ANSI-Commercial [id number] ANSI-Commercial [id number] ANSI-Commercial [id number] ANSI-Commercial [id number] ANSI-Commercial [id number] ANSI-Commercial [id number] 15n2m471-295k-4620-w976-77wn965qa1iq ANSI-Commercial 39494q85-m5r7-5vic-y5zx-44z942vyl28m 38703d33-x0p1-7umv-w5sj-94e361ohp78x ANSI-Commercial 3w6y6234-31d8-4t9e-36vv-s2250runq407 2n1j1753-40m8-6y1o-41zi-n9135zewt500 [employer] Commercial [id number] ..[id number] Self [id number] r Commercial [id number] ..[id number] Self [id number] ANSI-Commercial [id number]-3443-7561-z6id-[id number] 64530utg-8079-1319-e9rx-987q101m6ng8 ANSI-Commercial jw70n80s-9c41-7l9x-dm35-[id number] tm83b32r-0q30-5u7l-sf53-d9935504c52c ANSI-Commercial 0sc6915s-5x1q-39ri-lh77-08968z51ki3q 5rv8926h-6t4z-98io-og18-65090w19nu1w ANSI-Commercial 0mo3q774-h30o-215s-543m-78728r9vhw35 5ql6r544-y59n-378u-815v-71088j8uot92 ANSI-Commercial 284d4e18-j874-0q0b-7c01-8395b53a973s 490s2e27-h804-1x8n-9h65-6469p73f781z ANSI-Commercial 06753cbk-942i-1515-3346-3h932gwdcm79 57715sme-338u-6355-7744-7q848gbgvb63 MEDICARE [id number] SP [id number] UMR ..[id number] 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 .1.029955.3.441 [employer] ..391357.3.441 [id number] Commercial Ins jhony Co. [id number] [employer] [id number] S [id number] r Commercial [id number] Self [id number] [employer] [id number] SP [id number] [employer] PPO O [id number] S [id number] [employer] Medigap Part B [id number] Self [employer] Commercial [id number] Self [employer] Commercial [id number] Self [employer] PPO P [id number] S [id number] UMR [id number] S [id number] UMR [facility] [id number] SP [id number] [employer] [place] Other 0 [id number] Self 0 Medicare Part B of [facility] Other 0 [id number] Self 0 [employer] [place] Other 0 [id number] Self 0 Medicare Part B of [facility] Other 0 [id number] Self 0 [employer] [place] Other 0 [id number] Self 0 Medicare Part B of [facility] Other 0 [id number] Self 0 MEDICARE [id number] SP [id number] MEDICARE [id number] SP [id number] A UMR O [id number] S [id number] UMR [id number] S [id number] [employer] [id number] S [id number] [employer] [place] Other 0 [id number] Self 0 [employer] [place] Other 0 [id number] Self 0 R [facility] [id number] SP [id number] Problems, Conditions, and Diagnoses Code Display Name Description Problem Type Effective Dates Data Source(s) I10 Essential (primary) hypertension Essential (primary) h ypertension Diagnosis 01/24/2021 11:19:36 AM EDT [facility] R00.2 Palpitations Palpitations Diagnosis 01/24/2021 11:19:36 A M EDT [facility] R07.9 Chest pain, unspecified Chest pain, unspecified Diagno sis 01/24/2021 11:19:36 AM EDT [facility] E78.2 Mixed hyperlipidemia Mixed hyperlipidemia Diagnosis 01/24/2021 11:19:36 AM EDT [facility] Z79.899 Other detention (current) drug therapy O THER PRISON (CURRENT) DRUG THERAPY Diagnosis 01/30/2020 03:46:00 PM [facility] l Z79.891 continuous churn buttermaker (current) use of opiate analge sic PRISON (CURRENT) USE OF OPIATE ANALGESIC Diagnosis 01/30/2020 03:46:00 PM [facility] 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 OF ORAL HYPOGLYCEMIC DRUGS Diagnosis 01/30/2020 03:46:00 PM [facility] Z79.82 residential (current) use of aspirin PRISON (CU RRENT) USE OF ASPIRIN Diagnosis 01/30/2020 03:46:00 PM [facility] J44.9 Chronic obstructive pulmonary disease, u nspecified CHRONIC OBSTRUCTIVE PULMONARY DISEASE, UNSPECIFIED Diagnosis 01/30/2020 03:46:00 PM [facility] M79.661 Pain in right lower leg PAIN IN RIGHT LOWER LEG Diagno sis 01/30/2020 03:46:00 PM [facility] M79.651 Pain in right thigh PAIN IN RIGHT THIGH Diagnosis 1 03/31/2019 03:46:00 PM [facility] M25.561 Pain in right knee PAIN IN RIGHT KNEE Diagnosis 08/2019 03:46:00 PM [facility] M79.89 Other specified soft tissue disorders OT HER SPECIFIED SOFT TISSUE DISORDERS Diagnosis 01/30/2020 03:46:00 PM [facility] I10 Hypertension Hypertension [id number] 12/14/2020 12:00:00 A M EDT [facility] I10 Essential hypertension Essential (primary) hypertensio n Problem 10/22/2020 12:00:00 AM EDT eCW1 ([facility]) R07.2 Precordial pain Precordial pain Problem 07/22/2020 12:0 0:00 AM EDT MEDENT ([facility]) [id number] Allergic asthma without status asthmatic us Allergic asthma without status asthmaticus Problem 05/21/2020 12:00:00 AM EST [facility] R00.2 Palpitations Palpitations [id number] 05/13/2020 12:00:00 A M EST [facility] R00.2 Palpitations Palpitations Problem 05/13/2020 12:00:00 A M EST MEDENT ([facility]) N81.6 [id number] Rectocele Problem 04/07/2020 12:00:00 AM ES T eCW1 ([facility]) N81.0 [id number] Urethrocele Problem 04/07/2020 12:00:[address] eCW1 ([facility]) G89.29 [id number] Other chronic pain Problem 03/02/2020 12:00: 00 AM EST eCW1 ([facility]) E78.2 [id number] Mixed hyperlipidemia Problem 03/02/2020 12:0 0:00 AM EST eCW1 ([facility]) Surgeries/Procedures Procedure Description Date Indications Data Source(s) OFFICE OUTPATIENT VISIT 25 MINUTES 02/01/2021 12:00:00 AM EST MEDENT ([facility], ) Needle electromyography, each extremity, with related paraspinal areas, when performed, done with nerve conduction, amplitude and latency/velocity study; complete, five or more muscles studied, innervated by three or more nerves or four or more spinal levels (list separately in addition to the code for primary procedure). 01/12/2021 12:00:00 AM EDT MEDEN T ([facility], ) Needle Electromyography Non Extremity Done With Nerve Conduc tion 01/12/2021 12:00:00 AM EDT MEDENT ([facility], ) Nerve Conduction 9-10 Studies 01/12/2021 12:00:00 AM E DT MEDENT ([facility], ) MRI BRAIN BRAIN STEM W/O CONTRAST MATERIAL 01/08/2021 12:00:00 AM EDT MEDENT ([facility], ) MRI BRAIN BRAIN STEM W/O CONTRAST MATERIAL 01/08/2021 12:00:00 AM EDT MEDENT ([facility], ) MRI SPINAL CANAL CERVICAL W/O CONTRAST MATRL 12:00:00 AM EDT [facility] ([facility], ) MRI SPINAL CANAL CERVICAL W/O CONTRAST MATRL 12:00:00 AM EDT [facility] ([facility], ) OFFICE OUTPATIENT NEW 45 MINUTES 01/04/2021 12:00:00 A M EDT [facility] ([facility], ) ECG ROUTINE ECG W/LEAST 12 LDS W/I&R <td>POCT AMB EKG</td><td>Routine</td><td>12/14/2020 12:25 PM EDT</td><td> Palpitations Chest pain, unspecified type</td><td> </td> 12/14/2020 12:25:00 PM EDT Chest pain, unspecified typePalpitations [facility] Chest pain, unspecified type Palpitations OFFICE OUTPATIENT VISIT 15 MINUTES 10/28/2020 12:00:00 AM EDT [facility] ([facility], ) BLOOD COUNT COMPLETE AUTO&AUTO DIFRNTL WBC COUNT <td>C BC AND DIFFERENTIAL</td><td>Routine</td><td>09/29/2020</td><td></td><td> </td> 09/29/2020 12:00:00 AM EDT [facility] THYROID STIMULATING HORMONE TSH <td>TSH</td><td>Routine</td><td>09/29/2020</td><td></td><td> </td> 09/29/2020 12:00:00 AM EDT [facility] HEPATIC FUNCTION PANEL <td>HEPATIC FUNCTION PANEL</td><td>Routine</td><td>09/29/2020</td><td></td><td> </td> 09/29/2020 12:00:00 AM EDT [facility] LIPID PANEL <td>LIPID PANEL</td><td>Rout ine</td><td>09/29/2020</td><td></td><td> </td> 09/29/2020 12:00:00 AM EDT [facility] BASIC METABOLIC PANEL CALCIUM TOTAL <td>BASIC METABOLI C PANEL</td><td>Routine</td><td>09/29/2020</td><td></td><td> </td> 09/29/2020 12:00:00 AM EDT [facility] ARTHROCENTESIS ASPIR&/INJECTION MAJOR JT/BURSA 021 12:00:00 AM EDT [facility] ([facility]) ARTHROCENTESIS ASPIR&/INJECTION MAJOR JT/BURSA 021 12:00:00 AM EDT TOMA ([facility]) Spirometry 08/03/2020 12:00:00 AM EDLeigh BRICEÑO ([facility], ) OFFICE OUTPATIENT VISIT 15 MINUTES 08/03/2020 12:00:00 AM EDT TOMA ([facility], ) ARTHROCENTESIS ASPIR&/INJECTION MAJOR JT/BURSA 021 12:00:00 AM EDT [facility]) OFFICE OUTPATIENT VISIT 10 MINUTES 07/29/2020 12:00:00 AM EDT [facility] ([facility]) PHYSICIAN TELEPHONE EVALUATION 5-10 MIN 07/08/2020 12: 00:00 AM EDT [facility] ([facility]) ECHO TTHRC R-T 2D W/WOM-MODE COMPL SPEC&COLR DOP 07/05 12:00:00 AM EDT MEDENT ([facility]) MRI Lower Extremity Any Joint 07/01/2020 12:00:00 AM E DT MEDENT ([facility]) MRI Lower Extremity Any Joint 07/01/2020 12:00:00 AM E DT MED[facility] ([facility]) XTRNL ECG < 48 HR RECORDING 06/24/2020 12:00:00 AM EDT MED[facility] ([facility]) XTRNL ECG CONTINUOUS RHYTHM PHYS REVIEW&INTERPJ 2020 12:00:00 AM EDT MED[facility] ([facility]) OFFICE OUTPATIENT VISIT 15 MINUTES 06/15/2020 12:00:00 AM EDT MEDENT ([facility]) MYOCARDIAL SPECT MULTIPLE STUDIES 05/31/2020 12:00:00 AM EST MED[facility] ([facility]) CV STRS TST XERS&/OR RX CONT ECG PHYS SI&R 05/31/2020 12:00:00 AM EST MEDENT ([facility]) Spirometry 05/27/2020 12:00:00 AM EST M EDENT ([facility], ) OFFICE OUTPATIENT VISIT 15 MINUTES 05/27/2020 12:00:00 AM EST MEDENT ([facility]) ECG ROUTINE ECG W/LEAST 12 LDS W/I&R 05/13/2020 12:00: 00 AM EST MEDENT ([facility]) Intermediate Eye Exam Established Patient Intermediate Eye Exam Established Patient 04/01/2020 12:00:00 AM VALENCIA QUINTANILLA (Medardo Holley MD [facility]) ARTHROCENTESIS ASPIR&/INJECTION MAJOR JT/BURSA 12:00:00 AM EST MEDENT ([facility]) ARTHROCENTESIS ASPIR&/INJECTION MAJOR JT/BURSA 12:00:00 AM EST MED[facility] ([facility]) ARTHRS KNE SURG W/MENISCECTOMY MED/LAT W/SHVG 01/29/20 20 12:00:00 AM EST MED[facility] ([facility]) ARTHROCENTESIS ASPIR&/INJECTION MAJOR JT/BURSA 12:00:00 AM EST MED[facility] ([facility]) ARTHROCENTESIS ASPIR&/INJECTION MAJOR JT/BURSA 12:00:00 AM EDT MED[facility] ([facility]) ARTHROCENTESIS ASPIR&/INJECTION MAJOR JT/BURSA 12:00:00 AM EDT MEDENT ([facility]) Visual Field Visual Field 01/08/2020 12:00:00 AM RUPERT LAGOS (Scott Holley MD [facility]) Scodi Retina, with interpretation and report Scodi Ret tanya, with interpretation and report 01/08/2020 12:00:00 AM EDT SOCORRO (Medardo Holley MD [facility]) Spirometry 01/08/2020 12:00:00 AM EDT M KEYANNA ([facility]) Results ID Date Data Source [id number] 02/09/2021 08:24:00 AM EST MEDENT ([facility]) Name Value Range Interpretation Code Description Data Saige rce(s) Supporting Document(s) PDFReport Laboratory test result MEDENT ([facility]) FVC-Pred 3.11 L MEDENT ([facility]) FVC-Pre 2.75 L MEDENT ([facility]) FVC-%Pred-Pre 88 L MEDENT ([facility]) FVC-LLN 2.47 L MEDENT ([facility]) Fev1-Pred 2.43 L MED[facility] ([facility]) Fev1-Pre 2.34 L MED[facility] ([facility]) Fev1-%Pred-Pre 96 L MEDENT ([facility]) Fev1-LLN 1.89 L MED[facility] ([facility]) Fev6-Pred 3.01 L MED[facility] ([facility]) Fev6-Pre 2.75 L MED[facility] ([facility]) Fev6-%Pred-Pre 91 L MEDENT ([facility]) Fev6-LLN 2.38 L MEDENT ([facility]) Qaz6jmy-Mbro 79 % MED[facility] ([facility]) Ktr1ryv-Xyl 85 % [facility] ([facility]) Des5pqm-%Pred-Pre 108 % MED[facility] ([facility]) Scw9yfg-WNO 69 % [facility] ([facility]) Lnz2ahp-Quik 97 % [facility] ([facility]) Wfp4zsr-Ark 100 % MED[facility] ([facility]) Vrb4gqm-%Pred-Pre 103 % [facility] ([facility]) FEFMax-Pred 6.12 L/E/sec MEDENT ([facility]) FEFMax-Pre 5.37 L/E/sec MED[facility] ([facility]) FEFMax-%Pred-Pre 87 L/E/sec MED[facility] ([facility]) FEFMax-LLN 4.53 L/E/sec MED[facility] ([facility]) Jzm8350-Lkds 2.38 L/E/sec MED[facility] ([facility]) Gvn6539-Lbj 2.96 L/E/sec MED[facility] ([facility]) Rij5609-%Pred-Pre 124 L/E/sec MED[facility] ([facility]) Ral4804-ACR 1.23 L/E/sec MED[facility] ([facility]) ExpTime-Pre 5.68 sec MED[facility] ([facility]) Fuo7pkw3-Xrue 81 % MED[facility] ([facility]) Eak0zqy7-Gpq 85 % [facility] ([facility]) Wva0huy0-MTE 73 % [facility] ([facility]) Zeb9qgd7-%Pred-Pre 104 % MEDENT ([facility]) ID Date Data Source [id number] 01/07/2021 08:25:00 AM EDT MEDENT ([facility]) Name Value Range Interpretation Code Description Data Saige rce(s) Supporting Document(s) Lead [Mass/volume] in Blood Laboratory test result 0-4 MED[facility] ([facility]) <content>Analysis by inductively coupled plasma/mass</content>
<content>spectrometry (ICP/MS)</content>
<content>Environmental Exposure:</content>
<content>WHO Recommendation <20</content>
<content>Occupational Exposure:</content>
<content>OSHA Lead Std 40</content>
<content>ZANA 30</content>
<content>.</content>
<content>Detection Limit = 1</content>
<content></content> Ceruloplasmin [Mass/volume] in Serum or Plasma 26.1 mg/dL 19.0-39.0 MEDENT ([facility], ) Copper [Mass/volume] in Serum or Plasma 88 ug/dL 80-158 MEDENT ([facility], ) This test was developed and its performa nce characteristics determined by [facility]. It has not been cleared or approved by the Food and Drug Administration. Detection Limit = 5 Mercury [Mass/volume] in Serum or Plasma Laboratory test result 0.0-1 4.9 MED[facility] ([facility], ) <content>This test was developed and its performance characteristics</content>
<content>determined by [facility]. It has not been cleared or</content>
<content>approved by the Food and Drug Admi nistration.</content>
<content>Environmental Exposure: <15.0</content>
<content>Occupational Exposure:</content>
<content>ZANA - Inorganic Mercury: 15.0</content>
<content>.</content>
<content> Detection Limit = 1.0</content>
<content>Performed at: - [facility]</content>
<content>[address], [place] [id number]</content>
<content>Stringed Instrument Repairer: Flaco Waite MD, Phone: [phone]</content>
<content>Performed at: - [facility]</content>
<content>[address], [place] [id number]</content>
<content>Stringed Instrument Repairer: Angie Torres MD, Phone: [phone]</content>
<content></content> ID Date Data Source [id number] 01/07/2021 08:25:00 AM EDT MEDENT ([facility], ) Name Value Range Interpretation Code Description Data Saige rce(s) Supporting Document(s) Antinuclear Antibodies Direct Laboratory test result Abnormal (applies to non- numeric results) MEDENT ([facility]) Anti Double Strand-Dna AB Laboratory test result 0-9 [facility] ([facility]) <content>Negative <5</content>
<content>Equivocal 5 - 9</content>
<content>Positive >9</content>
<content></content> REMOTE SENSING TECHNOLOGIST Antibodies 1.0 AI 0.0-0.9 MEDENT ([facility]) Mckeon Antibodies Laboratory test result 0.0-0.9 [facility] ([facility]) Sjogren's Anti SS-B Laboratory test result 0.0-0.9 [facility] ([facility]) Sjogren's Anti SS-A Laboratory test result 0.0-0.9 [facility] ([facility]) Sheila Comment Laboratory test result MEDEN T ([facility]) . Autoantibody Disease Association Condition Frequency -------- [...] (anti-Mckeon) SLE 15 - 30% ------- --------- REMOTE SENSING TECHNOLOGIST Mixed Connective Tissue Disease 95% (U1 nRNP, SLE 30 - 50% anti-ribonucleoprotein) Polymyositis and/or Dermatomyositis 20% -------- --------- Scl-70 (antiDNA Scleroderma (diffuse) 20 - 35% topoisomerase) Crest 13% -------- --------- Ebonie-1 Polymyositis and/or Dermatomyositis 20 - 40% -------- --------- Centromere B Scleroderma - Crest variant 80% ID Date Data Source [id number] 01/07/2021 08:25:00 AM EDT [facility] ([facility]) Name Value Range Interpretation Code Description Data Saige rce(s) Supporting Document(s) Thiamine [Mass/volume] in Blood 137.4 nmol/L 66.5-200.0 [facility] ([facility]) This test was developed and its performa nce characteristics determined by [facility]. It has not been cleared or approved by the Food and Drug Administration. Pyridoxine [Mass/volume] in Serum or Plasma 17.4 ug/L 2.0-32.8 [facility] ([facility], ) This test was developed and its performa nce characteristics determined by [facility]. It has not been cleared or approved by the Food and Drug Administration. ID Date Data Source [id number] 01/07/2021 08:25:00 AM EDT [facility] ([facility]) Name Value Range Interpretation Code Description Data Saige rce(s) Supporting Document(s) Vitamin E(Alpha Tocopherol) 10.6 mg/L 7.0-25.1 [facility] ([facility], ) This test was developed and its performa nce characteristics determined by [facility]. It has not been cleared or approved by the Food and Drug Administration. Vitamin E(Gamma Tocopherol) 0.9 mg/L 0.5-5.5 [facility] ([facility]) This test was developed and its performa nce characteristics determined by [facility]. It has not been cleared or approved by the Food and Drug Administration. Reference intervals for alpha and gamma-tocopherol determined from National Health and Nutrition Examination Survey, 2826-3054. Individuals with alpha-tocopherol levels less than 5.0 mg/L are considered vitamin E deficient. ID Date Data Source [id number] 01/07/2021 08:25:00 AM EDT [facility] ([facility], ) Name Value Range Interpretation Code Description Data Saige rce(s) Supporting Document(s) Reagin Ab [Presence] in Serum by RPR Laboratory test result [facility] ([facility]) <content>note:<nlbl:demographic_changed> </content>
<content></content> Rheumatoid factor [Units/volume] in Serum or Plasma Laboratory test result MED[facility] ([facility], ) <content>note:<nlbl:demographic_changed> </content>
<content></content> ID Date Data Source [id number] 01/07/2021 08:25:00 AM EDT MEDENT ([facility], ) Name Value Range Interpretation Code Description Data Saige rce(s) Supporting Document(s) Vitamin B12 Level 572 pg/mL MEDENT ([facility], ) VITAMIN B12 NORMAL RANGE NORMAL 247 - 911 PG/ML INDETERMINATE 211 - 246 PG/ML DEFICIENT LESS THAN 211 PG/ML Folate 23.5 ng/mL MED[facility] ([facility], ) FOLATE NORMAL RANGE NORMAL GREATER THAN 5.4 NG/ML INDETERMINATE 3.4-5.4 NG/ML DEFICIENT LESS THAN 3.4 NG/ML ID Date Data Source [id number] 01/07/2021 08:25:00 AM EDT MEDENT ([facility], ) Name Value Range Interpretation Code Description Data Saige rce(s) Supporting Document(s) Albumin % 65.0 % 55.8-66.1 MEDENT ([facility], ) Wbeiv-2-Mdfjltjh % 3.3 % 2.9-4.9 MED[facility] ([facility], ) Uphad-1-Dikifgpve % 10.2 % 7.1-11.8 [facility] ([facility], ) Osww-9-Msfpptqlu % 6.7 % 4.7-7.2 MED[facility] ([facility], ) Doiw-3-Vjehwrjzl % 4.8 % 3.2-6.5 [facility] ([facility], ) Gamma Globulin % 10.0 % 11.1-18.8 [facility] ([facility]) Albumin 4.88 GM/DL 3.29-5.55 MED[facility] ([facility], ) Mavkl-2-Kbwvzgbfv 0.25 GM/DL 0.17-0.41 MED[facility] ([facility], ) Kgjrh-5-Utrrfdtto 0.77 GM/DL 0.42-0.99 [facility] ([facility], ) Zzze-6-Mwzmcnnku 0.50 GM/DL 0.28-0.60 MED[facility] ([facility], ) Gamma Globulins 0.75 GM/DL 0.65-1.58 MED[facility] ([facility]) Gcto-3-Beevpiomj 0.36 GM/DL 0.19-0.55 [facility] ([facility]) Total Protein 7.4 GM/DL 6.4-8.2 MED[facility] ([facility]) Spep Interpretation Laboratory test result [facility] ([facility]) NO M-SPIKE(S)NOTED. Laboratory test finding (navigational concept) Laboratory test result [facility] ([facility]) ID Date Data Source [id number] 01/07/2021 08:25:00 AM EDT [facility] ([facility]) Name Value Range Interpretation Code Description Data Saige rce(s) Supporting Document(s) Blood Urea Nitrogen 9 mg/dL 7-18 MED[facility] ([facility]) Glucose, Fasting 128 mg/dL 70-100 [facility] ([facility]) Creatinine For GFR 0.72 mg/dL 0.55-1.30 [facility] Glomerular Filtration Rate Laboratory test result [facility] ([facility]) <content>Units are mL/min/1.73 m2</content>
<content></content>
<content>Chronic Kidney Disease Staging per NKF:</content>
<content></content>
<content>Stage I & II GFR >=60 Normal to Mildly Decreased</content>
<content>Stage III GFR 30- 59 Moderately Decreased</content>
<content>Stage IV GFR 15-29 Severely Decreased</content>
<content>Stage V GFR <15 Very Little GFR Left</content>
<content>ESRD GFR <15 on RIVET HAMMER MACHINE OPERATOR</content>
<content></content> Sodium Level 139 meq/L 136-145 MEDENT ([facility]) Potassium Serum 3.9 meq/L 3.5-5.1 [facility] ([facility]) Chloride Level 105 meq/L 98-107 [facility] ([facility]) Carbon Dioxide Level 29 meq/L 21-32 [facility] ([facility]) Anion Gap 5 meq/L 8-16 MED[facility] ([facility]) Calcium Level 9.3 mg/dL 8.5-10.1 [facility] ([facility]) Ast/Sgot 21 U/L 7-37 [facility] ([facility]) Alt/SGPT 52 U/L 12-78 [facility] ([facility]) Alkaline Phosphatase 93 U/L 45-117 [facility] ([facility]) Bilirubin,Total 0.4 mg/dL 0.2-1.0 [facility] ([facility]) Total Protein 7.4 GM/DL 6.4-8.2 [facility] ([facility]) Albumin 4.2 GM/DL 3.2-5.2 [facility] ([facility]) Albumin/Globulin Ratio 1.3 1.2-2.2 [facility] ([facility]) ID Date Data Source [id number] 01/07/2021 08:25:00 AM EDT MED[facility] ([facility]) Name Value Range Interpretation Code Description Data Saige rce(s) Supporting Document(s) Erythrocyte sedimentation rate by 2H Westergren method 9 mm/hr 0-3 0 [facility] ([facility]) ID Date Data Source [id number] 01/07/2021 08:25:00 AM EDT [facility] ([facility]) Name Value Range Interpretation Code Description Data Saige rce(s) Supporting Document(s) White Blood Count 8.8 10 4.0-10.0 MED[facility] ([facility]) Red Blood Count 4.42 10 4.00-5.40 [facility] ([facility]) Hemoglobin 13.1 g/dL 12.0-15.5 [facility] ([facility]) Mean Corpuscular Volume 93.9 fl 80.0-96.0 M EDENT ([facility]) Hematocrit 41.5 % 36.0-47.0 [facility] ([facility]) Mean Corpuscular Hemoglobin 29.6 pg 27.0-33.0 [facility] ([facility]) Mean Corpuscular HGB Conc 31.6 g/dL 32.0-36.5 [facility] ([facility]) Red Cell Distribution Width 13.2 % 11.5-14.5 [facility] ([facility]) Platelet Count, Automated 359 10 150-450 [facility] ([facility]) Neutrophils % 53.8 % 36.0-66.0 [facility] ([facility]) Lymph % 31.9 % 24.0-44.0 [facility] ([facility]) [place] % 9.6 % 2.0-8.0 [facility] ([facility]) Eos % 2.9 % 0.0-3.0 [facility] ([facility]) Baso % 1.2 % 0.0-1.0 [facility] ([facility]) Immature Granulocyte % 0.6 % 0-3.0 [facility] ([facility]) Nucleated Red Blood Cell % 0.0 % 0-0 [facility] ([facility]) Lymph # 2.8 10 1.5-5.0 [facility] ([facility]) Neutrophils # 4.7 10 1.5-8.5 [facility] ([facility]) [place] # 0.9 10 0.0-0.8 [facility] ([facility]) Eos # 0.3 10 0.0-0.5 [facility] ([facility]) Baso # 0.1 10 0.0-0.2 [facility] ([facility]) ID Date Data Source [id number] 01/07/2021 08:25:00 AM EDT [facility] ([facility]) Name Value Range Interpretation Code Description Data Saige rce(s) Supporting Document(s) Hemoglobin A1c 6.1 % [facility] ([facility]) <content>REFERENCE RANGES:</content><br/ ><content></content>
<content><=5.6% NORMAL</content>
<content>5.7-6.4% SUGGESTS IMPAIRED GLUCOSE METABOLISM/PREDIABETIC</content>
<content>>= 6.5% ABNORMAL</content>
<content></content> Estimated Average Glucose 128 mg/dL 60-110 [facility] ([facility]) ID Date Data Source [id number] 11/23/2020 09:15:00 AM EDT [facility] Name Value Range Interpretation Code Description Data Saige rce(s) Supporting Document(s) SARS-CoV-2 RNA Resp Ql ANITRA+probe NOT DETECTED [facility] This lab was ordered by LIANA hagan and reported by LIANA Webb. ID Date Data Source Urinalysis, no Micro 06/22/2020 12:00:00 AM EDT eCW1 ([facility]) Name Value Range Interpretation Code Description Data Saige rce(s) Supporting Document(s) 1.020 1.002 - 1.035 Spec gravity eCW1 ([facility]) neg Negative - Leukocyte eCW1 ([facility]) 6 5.0 - 9.0 pH eCW1 ([facility]) neg Negative - Nitrate eCW1 ([facility]) neg Negative - mg/dl Glucose eCW1 ([facility]) neg Negative - mg/dl Protein eCW1 ([facility]) neg Negative - Bilirubin eCW1 ([facility]) norm Normal - mg/dl Urobili eCW1 ([facility]) neg Negative - mg/dl Ketones eCW1 ([facility]) yes Internal QC Acceptable (Y/N) e CW1 ([facility]) neg Negative - Blood eCW1 ([facility]) ID Date Data Source [id number] 05/27/2020 09:58:00 AM EST [facility] ([facility], ) Name Value Range Interpretation Code Description Data Saige rce(s) Supporting Document(s) PDFReport Laboratory test result [facility] ([facility], ) FVC-Pred 3.11 L [facility] ([facility]) FVC-%Pred-Pre 90 L [facility] ([facility]) FVC-Pre 2.81 L [facility] ([facility], ) FVC-LLN 2.47 L [facility] ([facility]) Fev1-Pre 2.38 L [facility] ([facility], ) Fev1-Pred 2.43 L [facility] ([facility]) Fev1-%Pred-Pre 98 L [facility] ([facility]) Fev1-LLN 1.89 L [facility] ([facility]) Fev6-Pre 2.81 L [facility] ([facility]) Fev6-Pred 3.01 L [facility] ([facility]) Fev6-%Pred-Pre 93 L MEDENT ([facility]) Fev6-LLN 2.38 L MEDENT ([facility]) Mqj0nvv-Mzeh 79 % MEDENT ([facility]) Wmz6csr-Pws 85 % MEDENT ([facility]) Goc4xab-%Pred-Pre 107 % MEDENT ([facility]) Frz7uxh-TWW 69 % MED[facility] ([facility]) Etz1xbr-Wbeg 97 % MED[facility] ([facility]) Oyj3hqn-Puj 100 % MEDENT ([facility]) Snc7wrt-%Pred-Pre 103 % MED[facility] ([facility]) FEFMax-Pred 6.12 L/E/sec MEDENT ([facility]) FEFMax-Pre 5.92 L/E/sec MEDENT ([facility]) FEFMax-%Pred-Pre 96 L/E/sec MEDENT ([facility]) FEFMax-LLN 4.53 L/E/sec MEDENT ([facility]) Wkg3483-Sijd 2.38 L/E/sec MED[facility] ([facility]) Mnk5078-Eml 2.90 L/E/sec MEDENT ([facility]) Knd5671-%Pred-Pre 122 L/E/sec MEDENT ([facility]) ExpTime-Pre 5.86 sec MEDENT ([facility]) Phj5381-ZAH 1.23 L/E/sec MEDENT ([facility], ) Aun8vtv0-Yrq 85 % MEDENT ([facility]) Rji5cew7-Hvvf 81 % MEDENT ([facility]) Rzn0hcx9-%Pred-Pre 104 % MEDENT ([facility]) Tsi2zkh0-SAA 73 % MED[facility] ([facility]) ID Date Data Source [id number] 05/21/2020 07:26:00 AM EST MED[facility] ([facility]) Name Value Range Interpretation Code Description Data Saige rce(s) Supporting Document(s) Magnesium [Mass/volume] in Serum or Plasma 2.3 mg/dL 1.8-2.4 MED[facility] ([facility]) <content>note:<nlbl:demographic_changed> </content>
<content></content> ID Date Data Source [id number] 05/21/2020 07:26:00 AM EST MED[facility] ([facility]) Name Value Range Interpretation Code Description Data Saige rce(s) Supporting Document(s) Blood Urea Nitrogen 13 mg/dL 7-18 MEDENT ([facility]) Glucose, Fasting 108 mg/dL 70-100 [facility] ([facility]) Glomerular Filtration Rate Laboratory test result MEDENT ([facility]) <content>Units are mL/min/1.73 m2</content>
<content></content>
<content>Chronic Kidney Disease Staging per NKF:</content>
<content></content>
<content>Stage I & II GFR >=60 Normal to Mildly Decreased</content>
<content>Stage III GFR 30- 59 Moderately Decreased</content>
<content>Stage IV GFR 15-29 Severely Decreased</content>
<content>Stage V GFR <15 Very Little GFR Left</content>
<content>ESRD GFR <15 on [employer]IVET HAMMER MACHINE OPERATOR</content>
<content></content> Creatinine For GFR 0.78 mg/dL 0.55-1.30 MEDENT ([facility]) Chloride Level 105 meq/L 98-107 MED[facility] ([facility]) Potassium Serum 3.9 meq/L 3.5-5.1 MEDENT ([facility]) Sodium Level 141 meq/L 136-145 MED[facility] ([facility]) Anion Gap 6 meq/L 8-16 MED[facility] ([facility]) Carbon Dioxide Level 30 meq/L 21-32 MED[facility] ([facility]) Calcium Level 9.4 mg/dL 8.5-10.1 MEDENT ([facility]) Alt/SGPT 32 U/L 12-78 MED[facility] ([facility]) Ast/Sgot 4 U/L 7-37 MEDENT ([facility]) Total Protein 6.7 GM/DL 6.4-8.2 MED[facility] ([facility]) Alkaline Phosphatase 58 U/L 45-117 MED[facility] ([facility]) Bilirubin,Total 0.3 mg/dL 0.2-1.0 MED[facility] ([facility]) Albumin/Globulin Ratio 1.6 1.2-2.2 MED[facility] ([facility]) Albumin 4.1 GM/DL 3.2-5.2 MED[facility] ([facility]) ID Date Data Source [id number] 05/21/2020 07:26:00 AM EST MEDENT ([facility]) Name Value Range Interpretation Code Description Data Saige rce(s) Supporting Document(s) Cholesterol Level 231 mg/dL MED[facility] ([facility]) Triglycerides Level 181 mg/dL MED[facility] ([facility]) HDL Cholesterol 68 mg/dL MED[facility] ([facility]) LDL Cholesterol 127 mg/dL MED[facility] ([facility]) Non-HDL-C 163 mg/dL MED[facility] ([facility]) Cholesterol Risk Ratio 3.397 MED[facility] ([facility]) ID Date Data Source [id number] 05/21/2020 07:26:00 AM EST MEDENT ([facility]) Name Value Range Interpretation Code Description Data Saige rce(s) Supporting Document(s) Free T4 0.96 ng/dL 0.76-1.46 MED[facility] ([facility]) Thyroid Stimulating Hormone 2.140 uIU/ML 0.358-3.740 MEDENT ([facility]) ID Date Data Source [id number] 05/21/2020 07:26:00 AM EST MEDENT ([facility]) Name Value Range Interpretation Code Description Data Saige rce(s) Supporting Document(s) C reactive protein [Mass/volume] in Serum or Plasma by High sensitivity method 0.30 mg/dL 0.00-0.30 MEDENT ([facility]) <content>note:<nlbl:demographic_changed> </content>
<content></content> ID Date Data Source [id number] 05/21/2020 07:26:00 AM EST MEDENT ([facility]) Name Value Range Interpretation Code Description Data Saige rce(s) Supporting Document(s) White Blood Count 8.1 10 4.0-10.0 MED[facility] ([facility]) Red Blood Count 4.09 10 4.00-5.40 MED[facility] ([facility]) Mean Corpuscular Volume 92.2 fl 80.0-96.0 M EDENT ([facility]) Hematocrit 37.7 % 36.0-47.0 MED[facility] ([facility]) Hemoglobin 11.7 g/dL 12.0-15.5 MED[facility] ([facility]) Mean Corpuscular HGB Conc 31.0 g/dL 32.0-36.5 MEDENT ([facility]) Mean Corpuscular Hemoglobin 28.6 pg 27.0-33.0 MED[facility] ([facility]) Platelet Count, Automated 296 10 150-450 MED[facility] ([facility]) Red Cell Distribution Width 14.3 % 11.5-14.5 MED[facility] ([facility]) Neutrophils % 48.1 % 36.0-66.0 MED[facility] ([facility]) Lymph % 40.3 % 24.0-44.0 [facility] [place] [place] % 8.2 % 2.0-8.0 [facility] Eos % 1.6 % 0.0-3.0 [facility] ([facility] Baso % 0.7 % 0.0-1.0 [facility] ([facility] [place] Immature Granulocyte % 1.1 % 0-3.0 [facility] ([facility]) Nucleated Red Blood Cell % 0.0 % 0-0 MED E[facility] ([facility]) Neutrophils # 3.9 10 1.5-8.5 [facility] ([facility] [place]) Lymph # 3.3 10 1.5-5.0 [facility] [place] [place] # 0.7 10 0.0-0.8 [facility] ([facility] [place] Eos # 0.1 10 0.0-0.5 [facility] ([facility] [place] Baso # 0.1 10 0.0-0.2 [facility] ([facility] [place] ID Date Data Source [id number] 05/21/2020 07:26:00 AM EST MEDENT ([facility]) Name Value Range Interpretation Code Description Data Saige rce(s) Supporting Document(s) Hemoglobin A1c 6.3 % [facility] ([facility]) <content>REFERENCE RANGES:</content><br/ ><content></content>
<content><=5.6% NORMAL</content>
<content>5.7-6.4% SUGGESTS IMPAIRED GLUCOSE METABOLISM/PREDIABETIC</content>
<content>>= 6.5% ABNORMAL</content>
<content></content> Estimated Average Glucose 134 mg/dL 60-110 [facility] ([facility]) ID Date Data Source [id number] 05/21/2020 07:26:00 AM EST MEDENT ([facility]) Name Value Range Interpretation Code Description Data Saige rce(s) Supporting Document(s) Erythrocyte sedimentation rate by Westergren method 7 mm/hr 0-30 [facility]) ID Date Data Source [id number] 05/07/2020 12:37:00 PM EST MEDENT ([facility]) Name Value Range Interpretation Code Description Data Saige rce(s) Supporting Document(s) Magnesium Level 2.5 1.8-2.4 MED[facility] ([facility]) ID Date Data Source [id number] 05/07/2020 12:37:00 PM EST MED[facility] ([facility]) Name Value Range Interpretation Code Description Data Saige rce(s) Supporting Document(s) Calcium [Mass/volume] in Serum or Plasma 7.8 MEDENT ([facility]) Carbon dioxide, total [Moles/volume] in Serum or Plasma 27 MED[facility] ([facility]) Sodium 142 [facility] Potassium [Moles/volume] in Serum or Plasma 3.8 MED[facility] ([facility]) Chloride [Moles/volume] in Serum or Plasma 108 MED[facility] ([facility]) Creatinine 0.67 0.6-1.0 MED[facility] ([facility]) Glucose 107 83-110 MEDENT ([facility]iology A [facility]) Blood Urea Nitrogen 8 7-18 MED[facility] ([facility]) Glomerular filtration rate/1.73 sq M.pre dicted [Volume Rate/Area] in Serum or Plasma by Creatinine-based formula (MDRD) Laboratory test result MEDENT ([facility]) ID Date Data Source [id number] 05/07/2020 12:37:00 PM EST MED[facility] ([facility]) Name Value Range Interpretation Code Description Data Saige rce(s) Supporting Document(s) White Blood Count 14.4 5.0-10.0 MED[facility] ([facility]) Red Blood Count 3.97 4.00-5.40 MED[facility] ([facility]) Platelets 264 172-450 [facility] Hemoglobin 11.6 MED[facility] ([facility]) Hematocrit 37.0 MED[facility] ([facility]) ID Date Data Source [id number] 05/06/2020 12:39:00 PM EST MEDENT ([facility]) Name Value Range Interpretation Code Description Data Saige rce(s) Supporting Document(s) Magnesium Level 2.7 1.8-2.4 MED[facility] ([facility]) ID Date Data Source [id number] 05/06/2020 12:39:00 PM EST MEDENT ([facility]) Name Value Range Interpretation Code Description Data Saige rce(s) Supporting Document(s) Red Blood Count 4.64 4.00-5.40 MED[facility] ([facility]) White Blood Count 11.9 5.0-10.0 MED[facility] ([facility]) Platelets 371 172-450 [facility] Hemoglobin 13.3 MED[facility] ([facility]) Hematocrit 41.3 MED[facility] ([facility]) ID Date Data Source [id number] 05/06/2020 12:39:00 PM EST [facility] ([facility]) Name Value Range Interpretation Code Description Data Saige rce(s) Supporting Document(s) Sodium 143 MEDENT ([facility]) Calcium [Mass/volume] in Serum or Plasma 8.1 MED[facility] ([facility]) Carbon dioxide, total [Moles/volume] in Serum or Plasma 27 MED[facility] ([facility]) Chloride [Moles/volume] in Serum or Plasma 106 MED[facility] ([facility]) Glucose 148 83-110 MED[facility] ([facility]) Potassium [Moles/volume] in Serum or Plasma 4.3 MED[facility] ([facility]) Blood Urea Nitrogen 9 7-18 MED[facility] ([facility]) Creatinine 0.73 0.6-1.0 MED[facility] ([facility]) Glomerular filtration rate/1.73 sq M.pre dicted [Volume Rate/Area] in Serum or Plasma by Creatinine-based formula (MDRD) Laboratory test result MEDENT ([facility]) ID Date Data Source [id number] 05/05/2020 02:45:00 PM EST [facility] Name Value Range Interpretation Code Description Data Saige rce(s) Supporting Document(s) SARS-CoV-2 (COVID 19) NEGATIVE - SARS-CoV-2 (COVID19) [facility] This lab was ordered by [facility] a nd reported by [facility]. ID Date Data Source [id number] 04/25/2020 12:00:00 AM EST [facility] Name Value Range Interpretation Code Description Data Saige rce(s) Supporting Document(s) SARS coronavirus 2 Ag Negative [facility] This lab was ordered by [facility] and reported by [facility]. ID Date Data Source URINE CULTURE 03/15/2020 12:00:00 AM EST eCW1 ([facility]) Name Value Range Interpretation Code Description Data Saige rce(s) Supporting Document(s) URINE CULTURE eCW1 ([facility]) ID Date Data Source [id number] GLUCOSE 03/02/2020 12:00:00 AM EST eCW1 ([facility]) Name Value Range Interpretation Code Description Data Saige rce(s) Supporting Document(s) 114 BEDSIDE GLUCOSE eCW1 ([facility]) ID Date Data Source Urinalysis, no micro 03/02/2020 12:00:00 AM EST eCW1 ([facility]) Name Value Range Interpretation Code Description Data Saige rce(s) Supporting Document(s) 1.020 1.002 - 1.035 Spec gravity eCW1 ([facility]) 5 5.0 - 9.0 pH eCW1 ([facility]) positive Negative - Leukocyte eCW1 ([facility]) neg Negative - Nitrate eCW1 ([facility]) trace Negative - mg/dl Protein eCW1 ([facility]) neg Negative - mg/dl Glucose eCW1 ([facility]) neg Negative - mg/dl Ketones eCW1 ([facility]) normal Normal - mg/dl Urobili eCW1 ([facility]) 50 Negative - Blood eCW1 ([facility]) neg Negative - Bilirubin eCW1 ([facility]) yes Internal QC Acceptable (Y/N) e CW1 ([facility]) ID Date Data Source [id number] 01/30/2020 04:42:00 PM EST [facility] Patient: ELHAM VERAS Bre R eport - Physicians/Mid Levels . [facility].VisitID: [id number] [place] [address] [phone], FRegistration Date/Time: 01/30/2020 14:32 Weight:63.5 kg (S). [...] a day, Last: today. (Electronically signed by Jalyn Greene P.A. 01/30/2020 16:41) Name Value Range Interpretation Code Description Data Saige rce(s) Supporting Document(s) ID Date Data Source [id number] 01/30/2020 04:00:00 PM EST [facility] [...] rce(s) Supporting Document(s) ID Date Data Source [id number] 01/24/2020 11:00:00 AM EDT MEDENT ([facility] ) Name Value Range Interpretation Code Description Data Saige rce(s) Supporting Document(s) Coronavirus 2019 Nasopharygeal Laboratory [facility] This nucleic acid amplification test was developed and its performance characteristics determined by [facility]. Nucleic acid amplification tests include PCR and [...] in this assay. Performed at: - [facility] [address] [id number] Stringed Instrument Repairer: Angie Torres MD, Phone: [phone] Not Detected ID Date Data Source [id number] 01/24/2020 11:00:00 AM EDT [facility] Name Value Range Interpretation Code Description Data [facility] rce(s) Supporting Document(s) SARS coronavirus 2 RNA [facility] This lab was ordered by [facility] and reported by [facility]. ID Date Data Source [id number] 01/08/2020 02:21:00 PM EDT MEDENT ([facility]) Name Value Range Interpretation Code Description Data Saige rce(s) Supporting Document(s) FVC-Pre 2.99 L MEDENT ([facility], ) PDFReport Laboratory test result MEDENT ([facility]) FVC-Pred 3.13 L MEDENT ([facility]) FVC-%Pred-Pre 95 L MEDENT ([facility]) FVC-LLN 2.49 L MEDENT ([facility]) Fev1-Pred 2.45 L MEDENT ([facility]) Fev1-LLN 1.91 L MEDENT ([facility]) Fev1-%Pred-Pre 103 L MEDENT ([facility]) Fev1-Pre 2.53 L MEDENT ([facility]) Fev6-Pre 2.99 L MEDENT ([facility]) Fev6-Pred 3.03 L MEDENT ([facility]) Fev6-%Pred-Pre 98 L MEDENT ([facility]) Fev6-LLN 2.41 L MEDENT ([facility]) Wbk0niz-Nmey 79 % MEDENT ([facility]) Iyu3rqt-Vzp 85 % MED[facility] ([facility]) Acd1sqb-LGB 69 % MED[facility] ([facility]) Ulf6anf-%Pred-Pre 107 % MED[facility] ([facility]) Orc8uxe-Flf 100 % MED[facility] ([facility]) Wew9anx-%Pred-Pre 103 % MED[facility] ([facility]) Tmt5jxu-Eybv 97 % MED[facility] ([facility]) FEFMax-%Pred-Pre 81 L/E/sec MEDENT ([facility]) FEFMax-Pre 5.02 L/E/sec MEDENT ([facility]) FEFMax-Pred 6.16 L/E/sec MEDENT ([facility]) FEFMax-LLN 4.58 L/E/sec MEDENT ([facility]) Sfy1169-Loq 3.10 L/E/sec MEDENT ([facility]) Ljz2606-Xuvm 2.42 L/E/sec MED[facility] ([facility]) Hxi4953-ITK 1.27 L/E/sec MEDENT ([facility]) Zqt2970-%Pred-Pre 128 L/E/sec MEDENT ([facility]) ExpTime-Pre 5.52 sec MEDENT ([facility]) Bew2tmz1-%Pred-Pre 103 % MEDENT ([facility]) Tvb9rlj9-Ghn 85 % MED[facility] ([facility]) Lcy7muq4-Ghaz 82 % MEDENT ([facility]) Aut3axu6-MHE 73 % MEDENT ([facility]) Procedure Social History Code Duration Value Status Description Data Source(s ) Alcohol intake 01/22/2021 12:00:00 AM EDT Lifetime non-drinker (finding) completed Lifetime non-drinker (finding) [facility] Smoking 01/01/2021 12:00:00 AM EDT Former Smoker completed Former Smoker eCW1 ([facility]) Smoking 12/14/2020 12:00:00 AM EDT Never smoker completed Never s moker [facility] Alcohol intake 12/14/2020 12:00:00 AM EDT Lifetime non-drinker (finding) completed Lifetime non-drinker (finding) [facility] Smoking 11/16/2020 10:55:09 AM EDT Never smoked tobacco (findi ng) completed Never smoked tobacco (finding) [facility] (Scott Holley MD [facility]) Smoking 10/22/2020 12:00:00 AM EDT Former Smoker completed Former Smoker eCW1 ([facility]) Smoking 10/22/2020 12:00:00 AM EDT Former Smoker completed Former Smoker eCW1 ([facility]) Smoking 10/05/2020 09:11:37 AM EDT Never smoked tobacco (findi ng) completed Never smoked tobacco (finding) [facility] (Scott Holley MD [facility]) Smoking 09/09/2020 12:00:00 AM EDT Former Smoker completed Former Smoker eCW1 ([facility]) Smoking 09/09/2020 12:00:00 AM EDT Former Smoker completed Former Smoker eCW1 ([facility]) Smoking 06/22/2020 12:00:00 AM EDT Former Smoker completed Former Smoker eCW1 ([facility]) Smoking 06/22/2020 12:00:00 AM EDT Former Smoker completed Former Smoker eCW1 ([facility]) Smoking 06/22/2020 12:00:00 AM EDT Former Smoker completed Former Smoker eCW1 ([facility]) Smoking 06/22/2020 12:00:00 AM EDT Former Smoker completed Former Smoker eCW1 ([facility]) Smoking 05/13/2020 12:00:00 AM EST Patient is a former smoker completed Patient is a former smoker MED[facility] ([facility]) Smoking 05/12/2020 12:00:00 AM EST Former Smoker completed Former Smoker eCW1 ([facility]) Smoking 05/12/2020 12:00:00 AM EST Former Smoker completed Former Smoker eCW1 ([facility]) Smoking 05/12/2020 12:00:00 AM EST Former Smoker completed Former Smoker eCW1 ([facility]) Smoking 05/12/2020 12:00:00 AM EST Former Smoker completed Former Smoker eCW1 ([facility]) Smoking 04/25/2020 12:00:00 AM EST Patient has never smoked co mpleted Patient has never smoked MEDENT ([facility], [facility]) Smoking 04/07/2020 12:00:00 AM EST Former Smoker completed Former Smoker eCW1 ([facility]) Smoking 04/07/2020 12:00:00 AM EST Former Smoker completed Former Smoker eCW1 ([facility]) Smoking 03/15/2020 12:00:00 AM EST Former Smoker completed Former Smoker eCW1 ([facility]) Smoking 03/15/2020 12:00:00 AM EST Former Smoker completed Former Smoker eCW1 ([facility]) Smoking 03/15/2020 12:00:00 AM EST Former Smoker completed Former Smoker eCW1 ([facility]) Smoking 03/15/2020 12:00:00 AM EST Former Smoker completed Former Smoker eCW1 ([facility]) Smoking 03/02/2020 12:00:00 AM EST Former Smoker completed Former Smoker eCW1 ([facility]) Smoking 03/02/2020 12:00:00 AM EST Former Smoker completed Former Smoker eCW1 ([facility]) Vital Signs ID Date Data Source UNK Name Value Range Interpretation Code Description Data Source(s) Diastolic blood pressure 80 mm[Hg] 80 mm[Hg] [facility] ([facility]) Heart rate 85 /min 85 /min [facility] ([facility]) Oxygen saturation in Arterial blood by Pulse oximetry 97 % 97 % [facility] ([facility]) Body height 64 [in_i] 64 [in_i] [facility] ([facility]) 5'4" Body weight 149.00 [lb_av] 149.00 [lb_av] [facility] Systolic blood pressure 128 mm[Hg] 128 mm[Hg] [facility] ([facility]) Body mass index (BMI) [Ratio] 25.6 kg/m2 25.6 k g/m2 [facility] ([facility]) [place] body weight 120 [lb_av] 120 [lb_av] [facility] Body weight 67.586 kg 67.586 kg [facility] ([facility]) Body surface area Derived from formula 1.73 m2 1.73 m2 [facility] ([facility]) Systolic blood pressure 150 mm[Hg] 150 mm[Hg] [facility] ([facility]) Diastolic blood pressure 80 mm[Hg] 80 mm[Hg] [facility] ([facility]) Heart rate 84 /min 84 /min [facility] ([facility]) Respiratory rate 16 /min 16 /min [facility] ( [facility]) Systolic blood pressure 128 mm[Hg] 128 mm[Hg] [facility] Diastolic blood pressure 86 mm[Hg] 86 mm[Hg] [facility] Heart rate 84 /min 84 /min [facility] Respiratory rate 16 /min 16 /min [facility] Body height 162.6 cm 162.6 cm [facility] Body weight 67.586 kg 67.586 kg [facility] Body mass index (BMI) [Ratio] 25.58 kg/m2 25.58 kg/m2 [facility] Systolic blood pressure 156 mm[Hg] 156 mm[Hg] [facility] Diastolic blood pressure 96 mm[Hg] 96 mm[Hg] [facility] Heart rate 88 /min 88 /min [facility] Respiratory rate 16 /min 16 /min [facility] Body height 162.6 cm 162.6 cm [facility] Body weight 67.586 kg 67.586 kg [facility] Body mass index (BMI) [Ratio] 25.58 kg/m2 25.58 kg/m2 [facility] Body weight 144 [lb_av] 144 [lb_av] eCW1 ([facility]) Body height 63 [in_i] 63 [in_i] eCW1 ([facility]) Body mass index (BMI) [Ratio] 25.51 kg/m2 25.51 kg/m2 eCW1 ([facility]) Heart rate 105 /min 105 /min eCW1 ([facility]) Respiratory rate 18 /min 18 /min eCW1 ([facility]) Body temperature 98.3 [degF] 98.3 [degF] eCW1 ( [facility]) Systolic blood pressure 160 mm[Hg] 160 mm[Hg] e CW1 ([facility]) Diastolic blood pressure 96 mm[Hg] 96 mm[Hg] eCW1 ([facility]) Body weight 144.8 [lb_av] 144.8 [lb_av] eCW1 ([facility]) Body height 63 [in_i] 63 [in_i] eCW1 ([facility]) Body mass index (BMI) [Ratio] 25.65 kg/m2 25.65 kg/m2 eCW1 ([facility]) Systolic blood pressure 140 mm[Hg] 140 mm[Hg] e CW1 ([facility]) Diastolic blood pressure 80 mm[Hg] 80 mm[Hg] eCW1 ([facility]) Oxygen saturation in Arterial blood by Pulse oximetry 98 % 98 % [facility] ([facility]) Body temperature 97.7 [degF] 97.7 [degF] [facility] ([facility]) Body height 64 [in_i] 64 [in_i] [facility] ([facility]) 5'4" Body weight 149.00 [lb_av] 149.00 [lb_av] MEDEN T ([facility]) Body mass index (BMI) [Ratio] 25.6 kg/m2 25.6 k g/m2 [facility] ([facility]) [place] body weight 120 [lb_av] 120 [lb_av] MEDEN T ([facility]) Body weight 67.586 kg 67.586 kg [facility] ([facility]) Body surface area Derived from formula 1.73 m2 1.73 m2 [facility] ([facility]) Systolic blood pressure 122 mm[Hg] 122 mm[Hg] M EDENT ([facility]) Diastolic blood pressure 82 mm[Hg] 82 mm[Hg] [facility] ([facility]) Heart rate 76 /min 76 /min [facility] ([facility]) Oxygen saturation in Arterial blood by Pulse oximetry 98 % 98 % [facility] ([facility]) Body temperature 97.7 [degF] 97.7 [degF] [facility] ([facility]) Body height 64 [in_i] 64 [in_i] [facility] ([facility]) 5'4" Body weight 149.00 [lb_av] 149.00 [lb_av] MEDEN T ([facility]) Body mass index (BMI) [Ratio] 25.6 kg/m2 25.6 k g/m2 [facility] ([facility]) [place] body weight 120 [lb_av] 120 [lb_av] MEDEN T ([facility]) Body weight 67.586 kg 67.586 kg [facility] ([facility]) Body surface area Derived from formula 1.73 m2 1.73 m2 [facility] ([facility]) Body weight 147.00 [lb_av] 147.00 [lb_av] MEDEN T ([facility]) Body height 64 [in_i] 64 [in_i] MEDENT ([facility] 5'4" Body mass index (BMI) [Ratio] 25.2 kg/m2 25.2 k g/m2 [facility] ([facility]) Systolic blood pressure--sitting 116 mm[Hg] 116 mm[Hg] MED[facility] ([facility]) Ra, medium cuff Diastolic blood pressure--sitting 70 mm[Hg] 70 mm[Hg] MED[facility] ([facility]) Ra, medium cuff Body weight 142 [lb_av] 142 [lb_av] eCW1 ([facility]) Body height 63 [in_i] 63 [in_i] eCW1 ([facility]) Body mass index (BMI) [Ratio] 25.15 kg/m2 25.15 kg/m2 eCW1 ([facility]) Heart rate 100 /min 100 /min eCW1 ([facility]) Respiratory rate 18 /min 18 /min eCW1 ([facility]) Body temperature 98 [degF] 98 [degF] eCW1 ([facility]) Systolic blood pressure 143 mm[Hg] 143 mm[Hg] e CW1 ([facility]) Diastolic blood pressure 82 mm[Hg] 82 mm[Hg] eCW1 ([facility]) Body height 64 [in_i] 64 [in_i] MEDENT ([facility]) 5'4" Body weight 67.586 kg 67.586 kg [facility] ([facility]) Body surface area Derived from formula 1.73 m2 1.73 m2 [facility] ([facility]) Body height 64 [in_i] 64 [in_i] [facility] ([facility]) 5'4" Body weight 149.00 [lb_av] 149.00 [lb_av] MEDEN T ([facility]) Body mass index (BMI) [Ratio] 25.6 kg/m2 25.6 k g/m2 [facility] ([facility]) [place] body weight 120 [lb_av] 120 [lb_av] MEDEN T ([facility]) Body weight 67.586 kg 67.586 kg [facility] ([facility]) Body surface area Derived from formula 1.73 m2 1.73 m2 [facility] ([facility]) Systolic blood pressure 146 mm[Hg] 146 mm[Hg] [facility] ([facility]) Diastolic blood pressure 82 mm[Hg] 82 mm[Hg] [facility] ([facility]) Body weight 149.00 [lb_av] 149.00 [lb_av] MEDEN T ([facility]) Body mass index (BMI) [Ratio] 25.6 kg/m2 25.6 k g/m2 [facility] ([facility]) [place] body weight 120 [lb_av] 120 [lb_av] MEDEN T ([facility]) Diastolic blood pressure 84 mm[Hg] 84 mm[Hg] [facility] ([facility]) Oxygen saturation in Arterial blood by Pulse oximetry 97 % 97 % [facility] ([facility]) Systolic blood pressure 122 mm[Hg] 122 mm[Hg] [facility] ([facility]) Heart rate 106 /min 106 /min [facility] ([facility]) Body temperature 97.5 [degF] 97.5 [degF] [facility] ([facility]) [place] body weight 105 [lb_av] 105 [lb_av] MEDEN T ([facility]) Body weight 66.226 kg 66.226 kg MEDENT ([facility]) Body surface area Derived from formula 1.66 m2 1.66 m2 [facility] ([facility]) Body height 61.5 [in_i] 61.5 [in_i] [facility] 5'1.50" Body weight 146.00 [lb_av] 146.00 [lb_av] MEDEN T ([facility]) Body mass index (BMI) [Ratio] 27.1 kg/m2 27.1 k g/m2 [facility] ([facility]) Body weight 144.00 [lb_av] 144.00 [lb_av] MEDEN T ([facility]) Systolic blood pressure--sitting 132 mm[Hg] 132 mm[Hg] MEDENT ([facility]) Ra, medium cuff Diastolic blood pressure--sitting 82 mm[Hg] 82 mm[Hg] [facility] ([facility]) Ra, medium cuff Heart rate 97 /min 97 /min [facility] ([facility]) Body height 64 [in_i] 64 [in_i] [facility] ([facility]) 5'4" Body mass index (BMI) [Ratio] 24.7 kg/m2 24.7 k g/m2 [facility] ([facility]) Systolic blood pressure 140 mm[Hg] 140 mm[Hg] M EDENT ([facility], [facility]) Diastolic blood pressure 87 mm[Hg] 87 mm[Hg] MEDENT ([facility], [facility]) Heart rate 102 /min 102 /min MEDENT ([facility], [facility]) Respiratory rate 14 /min 14 /min MEDENT ( [facility], [facility]) Oxygen saturation in Arterial blood by Pulse oximetry 97 % 97 % [facility] ([facility], [facility]) Body temperature 98.7 [degF] 98.7 [degF] MEDENT ([facility], [facility]) Body weight 140.00 [lb_av] 140.00 [lb_av] MEDEN T ([facility] Body height 64 [in_i] 64 [in_i] MEDENT ([facility] 5'4" Body mass index (BMI) [Ratio] 24.0 kg/m2 24.0 k g/m2 [facility] ([facility] Body weight 144 [lb_av] 144 [lb_av] eCW1 ([facility]) Body weight 65.32 kg 65.32 kg eCW1 ([facility]) Body height 63 [in_i] 63 [in_i] eCW1 ([facility]) Body mass index (BMI) [Ratio] 25.51 kg/m2 25.51 kg/m2 eCW1 ([facility]) Systolic blood pressure 124 mm[Hg] 124 mm[Hg] e CW1 ([facility]) Diastolic blood pressure 77 mm[Hg] 77 mm[Hg] eCW1 ([facility]) Body temperature 96.9 [degF] 96.9 [degF] MEDENT ([facility]) Body weight 141 [lb_av] 141 [lb_av] eCW1 ([facility]) Body height 63 [in_i] 63 [in_i] eCW1 ([facility]) Body mass index (BMI) [Ratio] 24.97 kg/m2 24.97 kg/m2 eCW1 ([facility]) Heart rate 94 /min 94 /min eCW1 ([facility]) Respiratory rate 18 /min 18 /min eCW1 ([facility]) Body temperature 98.4 [degF] 98.4 [degF] eCW1 ( [facility]) Systolic blood pressure 137 mm[Hg] 137 mm[Hg] e CW1 ([facility]) Diastolic blood pressure 79 mm[Hg] 79 mm[Hg] eCW1 ([facility]) Body weight 144 [lb_av] 144 [lb_av] eCW1 ([facility]) Body height 63 [in_i] 63 [in_i] eCW1 ([facility]) Body mass index (BMI) [Ratio] 25.51 kg/m2 25.51 kg/m2 eCW1 ([facility]) Heart rate 107 /min 107 /min eCW1 ([facility]) Respiratory rate 18 /min 18 /min eCW1 ([facility]) Body temperature 98 [degF] 98 [degF] eCW1 ([facility]) Systolic blood pressure 170 mm[Hg] 170 mm[Hg] e CW1 ([facility]) Diastolic blood pressure 90 mm[Hg] 90 mm[Hg] eCW1 ([facility]) Systolic blood pressure 130 mm[Hg] 130 mm[Hg] M EDENT ([facility], ) Diastolic blood pressure 80 mm[Hg] 80 mm[Hg] MED[facility] ([facility]) Heart rate 107 /min 107 /min [facility] ([facility]) Oxygen saturation in Arterial blood by Pulse oximetry 98 % 98 % [facility] ([facility]) Body temperature 97.0 [degF] 97.0 [degF] [facility] ([facility]) Body height 61.5 [in_i] 61.5 [in_i] [facility] ([facility]) 5'1.50" Body weight 145.00 [lb_av] 145.00 [lb_av] MEDEN T ([facility]) Body mass index (BMI) [Ratio] 27.0 kg/m2 27.0 k g/m2 [facility] ([facility]) [place] body weight 105 [lb_av] 105 [lb_av] MEDEN T ([facility]) Body weight 65.772 kg 65.772 kg [facility] ([facility]) Body surface area Derived from formula 1.66 m2 1.66 m2 [facility] ([facility]) Patient Treatment Plan of Care Planned Activity Planned Date Details Description Data Source (s) Levothyroxine Sodium 0.075 MG Oral Tablet 12/07/2020 12:00:00 AM ED T [facility] Levothyroxine Sodium 0.05 MG Oral Tablet 12/07/2020 12:00:00 AM EDT [facility] Hydroxychloroquine Sulfate 200 MG Oral Tablet 12/03/2020 12:00:00 A M EDT [facility] Sucralfate 100 MG/ML Oral Suspension 12/03/2020 12:00:00 AM EDT [facility] Metformin hydrochloride 500 MG Oral Tablet 11/03/2020 12:00:00 AM E DT [facility] Nebulizer/Tubing/Mouthpiece 10/22/2020 12:00:00 AM EDT eCW1 ([facility]) Azithromycin 500 MG Oral Tablet 10/22/2020 12:00:00 AM EDT eCW1 ([facility]) Diclofenac Sodium 0.01 MG/MG Topical Gel [Voltaren] 10/23/19 12:00:00 AM EDT eCW1 ([facility]) Verapamil hydrochloride 120 MG Extended Release Oral T ablet 10/22/2020 12:00:00 AM EDT eCW1 ([facility]) Verapamil hydrochloride 120 MG Extended Release Oral T ablet 10/22/2020 12:00:00 AM EDT eCW1 ([facility]) Nebulizer/Tubing/Mouthpiece 10/22/2020 12:00:00 AM EDT eCW1 ([facility]) Azithromycin 500 MG Oral Tablet 10/22/2020 12:00:00 AM EDT eCW1 ([facility]) Diclofenac Sodium 0.01 MG/MG Topical Gel [Voltaren] 10/23/19 12:00:00 AM EDT eCW1 ([facility]) Verapamil hydrochloride 120 MG Extended Release Oral T ablet 10/22/2020 12:00:00 AM EDT eCW1 ([facility]) Nebulizer/Tubing/Mouthpiece 10/22/2020 12:00:00 AM EDT eCW1 ([facility]) Azithromycin 500 MG Oral Tablet 10/22/2020 12:00:00 AM EDT eCW1 ([facility]) Diclofenac Sodium 0.01 MG/MG Topical Gel [Voltaren] 10/23/19 12:00:00 AM EDT eCW1 ([facility]) Albuterol 0.83 MG/ML Inhalant Solution 10/20/2020 12:00:00 AM EDT [facility] montelukast 10 MG Oral Tablet 09/06/2020 12:00:00 AM EDT [facility] Lidocaine Hydrochloride 40 MG/ML Mucous Membrane Topic al Solution 08/26/2020 12:00:00 AM EDT eCW1 ([facility]) Fluconazole 100 MG Oral Tablet 06/22/2020 12:00:00 AM EDT eCW1 ([facility]) Fluconazole 100 MG Oral Tablet 06/22/2020 12:00:00 AM EDT eCW1 ([facility]) Fluconazole 100 MG Oral Tablet 06/22/2020 12:00:00 AM EDT eCW1 ([facility]) Fluconazole 100 MG Oral Tablet 06/22/2020 12:00:00 AM EDT eCW1 ([facility]) Fluconazole 150 MG Oral Tablet [Diflucan] 03/15/2020 12:00:00 AM ES T eCW1 ([facility]) Ciprofloxacin 500 MG Oral Tablet [Cipro] 03/15/2020 12:00:00 AM EST eCW1 ([facility]) Fluconazole 150 MG Oral Tablet [Diflucan] 03/15/2020 12:00:00 AM ES T eCW1 ([facility]) Ciprofloxacin 500 MG Oral Tablet [Cipro] 03/15/2020 12:00:00 AM EST eCW1 ([facility]) Fluconazole 150 MG Oral Tablet [Diflucan] 03/15/2020 12:00:00 AM ES T eCW1 ([facility]) Ciprofloxacin 500 MG Oral Tablet [Cipro] 03/15/2020 12:00:00 AM EST eCW1 ([facility]) Fluconazole 150 MG Oral Tablet [Diflucan] 03/15/2020 12:00:00 AM ES T eCW1 ([facility]) Ciprofloxacin 500 MG Oral Tablet [Cipro] 03/15/2020 12:00:00 AM EST eCW1 ([facility]) Ciprofloxacin 250 MG Oral Tablet 03/05/2020 12:00:00 AM EST eCW1 ([facility]) Fluconazole 150 MG Oral Tablet 03/05/2020 12:00:00 AM EST eCW1 ([facility]) Ciprofloxacin 250 MG Oral Tablet 03/05/2020 12:00:00 AM EST eCW1 ([facility]) Fluconazole 150 MG Oral Tablet 03/05/2020 12:00:00 AM EST eCW1 ([facility]) Cyclosporine 0.5 MG/ML Ophthalmic Suspension [Restasis ] 02/23/2020 12:00:00 AM EST [facility] (Scott Holley MD [facility]) Cyclosporine 0.5 MG/ML Ophthalmic Suspension [Restasis ] 09/09/2018 12:00:00 AM EDT [facility] (Scott Holley MD [facility]) Sucralfate 1000 MG Oral Tablet [facility]
--- OUTSIDE RECORDS SUMMARY | 2021-02-10 12:44 | CCD ---
Author Author [facility] Organization [facility] Address Unknown Phone Unavailable Care Team Providers Care Loop Puller Name Role Phone Daiana, L Delia WICKER MOLDED CANDLES Unavailable Unavailable Daiana, L Delia WICKER MOLDED CANDLES Unavailable Unavailable Daiana, L Delia WICKER MOLDED CANDLES Unavailable Unavailable Daiana, L Delia WICKER MOLDED CANDLES Unavailable Unavailable Daiana, L Delia WICKER MOLDED CANDLES Unavailable Unavailable Daiana, L Delia WICKER MOLDED CANDLES Unavailable Unavailable Daiana, L Delia WICKER MOLDED CANDLES Unavailable Unavailable Daiana, L Delia WICKER MOLDED CANDLES Unavailable Unavailable Daiana, L Delia WICKER MOLDED CANDLES Unavailable Unavailable Daiana, L Delia WICKER MOLDED CANDLES Unavailable Unavailable Daiana, L Delia WICKER MOLDED CANDLES Unavailable Unavailable Daiana, L Delia WICKER MOLDED CANDLES Unavailable Unavailable Daiana, L Delia WICKER MOLDED CANDLES Unavailable Unavailable Daiana, L Delia WICKER MOLDED CANDLES Unavailable Unavailable Daiana, L Delia WICKER MOLDED CANDLES Unavailable Unavailable Daiana, L Delia WICKER MOLDED CANDLES Unavailable Unavailable Daiana, L Delia WICKER MOLDED CANDLES Unavailable Unavailable Daiana, L Delia WICKER MOLDED CANDLES Unavailable Unavailable Daiana, L Delia WICKER MOLDED CANDLES Unavailable Unavailable Daiana, L Delia WICKER MOLDED CANDLES Unavailable Unavailable Daiana, L Delia WICKER MOLDED CANDLES Unavailable Unavailable Daiana, L Delia WICKER MOLDED CANDLES Unavailable Unavailable Daiana, L Delia WICKER MOLDED CANDLES Unavailable Unavailable Daiana, L Delia WICKER MOLDED CANDLES Unavailable Unavailable Daiana, L Delia WICKER MOLDED CANDLES Unavailable Unavailable Sukhwinder Leal MD Unavailable Unavailable [...] Unavailable Sukhwinder Leal MD Unavailable Unavailable Sukhwinder Lael MD Unavailable Unavailable Elvis, Sukhwinder Manzo MD Unavailable Unavailable Elvis, Sukhwinder Manzo MD Unavailable Unavailable Elvis, Sukhwinder Manzo MD Unavailable Unavailable Elvis, Sukhwinedr Manzo MD Unavailable Unavailable Elvis, Sukhwinder Manzo MD Unavailable Unavailable Leal, Sukhwinder Manzo MD Unavailable Unavailable PETROFF, JALYN PA Unavailable Unavailable PETROFF, JALYN PA Unavailable Unavailable PETROFF, JALYN PA Unavailable Unavailable PETROFF, JALYN PA Unavailable Unavailable PETROFF, JALYN PA Unavailable Unavailable PETROFF, JALYN PA Unavailable Unavailable PETROFF, JALYN PA Unavailable Unavailable PETROFF, JALYN PA Unavailable Unavailable Shannon, Trina DEPUTY COURT CLERK Unavailable Unavailable Shannon, Trina DEPUTY COURT CLERK Unavailable Unavailable Shannon, Trina DEPUTY COURT CLERK Unavailable Unavailable Shannon, Trina DEPUTY COURT CLERK Unavailable Unavailable Shannon, Trina DEPUTY COURT CLERK Unavailable Unavailable Shannon, Trina DEPUTY COURT CLERK Unavailable Unavailable Shannon, Trina DEPUTY COURT CLERK Unavailable Unavailable Shannon, Trina DEPUTY COURT CLERK Unavailable Unavailable Shannon, Trina DEPUTY COURT CLERK Unavailable Unavailable Shannon, Trina DEPUTY COURT CLERK Unavailable Unavailable Shannon, Trina DEPUTY COURT CLERK Unavailable Unavailable Shannon, Trina DEPUTY COURT CLERK Unavailable Unavailable Shannon, Trina DEPUTY COURT CLERK Unavailable Unavailable Shannon, Trina DEPUTY COURT CLERK Unavailable Unavailable Shannon, Trina DEPUTY COURT CLERK Unavailable Unavailable Shannon, Trina DEPUTY COURT CLERK Unavailable Unavailable Shannon, Trina DEPUTY COURT CLERK Unavailable Unavailable Shannon, Trina DEPUTY COURT CLERK Unavailable Unavailable Shannon, Trina DEPUTY COURT CLERK Unavailable Unavailable Shannon, Trina DEPUTY COURT CLERK Unavailable Unavailable Shannon, Trina DEPUTY COURT CLERK Unavailable Unavailable Shannon, Trina DEPUTY COURT CLERK Unavailable Unavailable Shannon, Trina DEPUTY COURT CLERK Unavailable Unavailable Shannon, Trina DEPUTY COURT CLERK Unavailable Unavailable Shannon, Trina DEPUTY COURT CLERK Unavailable Unavailable Shannon, Trina DEPUTY COURT CLERK Unavailable Unavailable Shannon, Trina DEPUTY COURT CLERK Unavailable Unavailable Shannon, Trina DEPUTY COURT CLERK Unavailable Unavailable Shannon, Trina DEPUTY COURT CLERK Unavailable Unavailable Shannon, Trina DEPUTY COURT CLERK Unavailable Unavailable Shannon, Trina DEPUTY COURT CLERK Unavailable Unavailable Shannon, Trina DEPUTY COURT CLERK Unavailable Unavailable Shannon, Trina DEPUTY COURT CLERK Unavailable Unavailable Shannon, Trina DEPUTY COURT CLERK Unavailable Unavailable Shannon, Trina DEPUTY COURT CLERK Unavailable Unavailable Shannon, Trina DEPUTY COURT CLERK Unavailable Unavailable Shannon, Trina DEPUTY COURT CLERK Unavailable Unavailable Shannon, Trina DEPUTY COURT CLERK Unavailable Unavailable Shannon, Trina DEPUTY COURT CLERK Unavailable Unavailable Shannon, Trina DEPUTY COURT CLERK Unavailable Unavailable Shannon, Trina DEPUTY COURT CLERK Unavailable Unavailable Shannon, Trina DEPUTY COURT CLERK Unavailable Unavailable Shannon, Trina DEPUTY COURT CLERK Unavailable Unavailable Shannon, Trina DEPUTY COURT CLERK Unavailable Unavailable Shannon, Trina DEPUTY COURT CLERK Unavailable Unavailable Trina Shannon DEPUTY COURT CLERK Unavailable Unavailable ShannonTrina DEPUTY COURT CLERK Unavailable Unavailable Shannon, Trina DEPUTY COURT CLERK Unavailable Unavailable Trickey, J Sheree PA Unavailable [...] MD, FACS Unavailable Unavailable Mayra, N Phi WICKER MOLDED CANDLES Unavailable Unavailable Mayra, N Phi WICKER MOLDED CANDLES Unavailable Unavailable Mayra, N Phi WICKER MOLDED CANDLES Unavailable Unavailable [place], N Phi WICKER MOLDED CANDLES Unavailable Unavailable Mayra, N Phi WICKER MOLDED CANDLES Unavailable Unavailable Mayra, N [place] WICKER MOLDED CANDLES Unavailable Unavailable Mayra, N [place] WICKER MOLDED CANDLES Unavailable Unavailable [place], [place] WICKER MOLDED CANDLES Unavailable Unavailable [place], [place] WICKER MOLDED CANDLES Unavailable Unavailable Mayra, N Phi WICKER MOLDED CANDLES Unavailable Unavailable Mayra, N [place] WICKER MOLDED CANDLES Unavailable Unavailable [place], [place] WICKER MOLDED CANDLES Unavailable Unavailable Mayra, N [place] WICKER MOLDED CANDLES Unavailable Unavailable [place], N [place] WICKER MOLDED CANDLES Unavailable Unavailable Mayra, N [place] WICKER MOLDED CANDLES Unavailable Unavailable [place], [place] WICKER MOLDED CANDLES Unavailable Unavailable Mayra, N [place] WICKER MOLDED CANDLES Unavailable Unavailable [place], [place] WICKER MOLDED CANDLES Unavailable Unavailable Mayra, N [place] WICKER MOLDED CANDLES Unavailable Unavailable Mayra, N [place] WICKER MOLDED CANDLES Unavailable Unavailable Mayra, N [place] WICKER MOLDED CANDLES Unavailable Unavailable [place], [place] WICKER MOLDED CANDLES Unavailable Unavailable Mayra, N [place] WICKER MOLDED CANDLES Unavailable Unavailable Mayra, N [place] WICKER MOLDED CANDLES Unavailable Unavailable Mayra, N [place] WICKER MOLDED CANDLES Unavailable Unavailable [place], [place] WICKER MOLDED CANDLES Unavailable Unavailable Mayra, N [place] WICKER MOLDED CANDLES Unavailable Unavailable Mayra, N [place] WICKER MOLDED CANDLES Unavailable Unavailable [place], [place] WICKER MOLDED CANDLES Unavailable Unavailable [place], [place] WICKER MOLDED CANDLES Unavailable Unavailable [place], [place] WICKER MOLDED CANDLES Unavailable Unavailable Mayra, N Phi WICKER MOLDED CANDLES Unavailable Unavailable Mayra, N [place] WICKER MOLDED CANDLES Unavailable Unavailable Evangelist CHAMBERLAIN MD Unavailable Unavailable [...] Unavailable Evangelist CHAMBERLAIN MD Unavailable Unavailable Evangelist CHAMBERLANI MD Unavailable Unavailable Evangelist CHAMBERLAIN MD Unavailable [...] B Leonel LAMB Unavailable Unavailable Fish, B Leonle LAMB Unavailable Unavailable Fish, B Leonel LAMB [...] Leonel LAMB Unavailable Unavailable Jennifer, Jeanne Suazoe DEPUTY COURT CLERK-C Unavailable Unavailabl e Jennifer, Jeanne Suazoe DEPUTY COURT CLERK-C Unavailable Unavailabl e Jennifer, Jeanne Suazoe DEPUTY COURT CLERK-C Unavailable Unavailabl e Jennifer, Jeanne Covarrubias DEPUTY COURT CLERK-C Unavailable Unavailabl e Jennifer, Regjulissa Suazoe DEPUTY COURT CLERK-C Unavailable Unavailabl e Jennifer, Jeanne Covarrubias DEPUTY COURT CLERK-C Unavailable Unavailabl e Jennifer, Pamela W Marci DEPUTY COURT CLERK-C Unavailable Unavailabl e Jennifer, Pamela W Marci DEPUTY COURT CLERK-C Unavailable Unavailabl e Jennifer, Pamela W Marci DEPUTY COURT CLERK-C Unavailable Unavailabl e Jennifer, Pamela W Marci DEPUTY COURT CLERK-C Unavailable Unavailabl e Jennifer, Pamela W Marci DEPUTY COURT CLERK-C Unavailable Unavailabl e Jennifer, Pamela W Marci DEPUTY COURT CLERK-C Unavailable Unavailabl e Jennifer, Pamela W Marci DEPUTY COURT CLERK-C Unavailable Unavailabl e Jennifer, Pamela W Marci DEPUTY COURT CLERK-C Unavailable Unavailabl e Jennifer, Pamela W Marci DEPUTY COURT CLERK-C Unavailable Unavailabl e Jennifer, Pamela W Marci DEPUTY COURT CLERK-C Unavailable Unavailabl e Jennifer, [facility] Paristanya W Marci DEPUTY COURT CLERK-C Unavailable Unavailabl e Jennifer, [facility] Paristanya Lory Covarrubias DEPUTY COURT CLERK-C Unavailable Unavailabl e Jennifer, [facility] Paristanya W Marci DEPUTY COURT CLERK-C Unavailable Unavailabl e Jennifer, [facility] Paristanya W Marci DEPUTY COURT CLERK-C Unavailable Unavailabl e Jennifer, [facility] Paristanya W Marci DEPUTY COURT CLERK-C Unavailable Unavailabl e Jennifer, [facility] Paristanya W Marci DEPUTY COURT CLERK-C Unavailable Unavailabl e Jennifer, [facility] Paristanya W Marci DEPUTY COURT CLERK-C Unavailable Unavailabl e Jennifer, [facility] Paristanya W Marci DEPUTY COURT CLERK-C Unavailable Unavailabl e Jennifer, [facility] Paristanya W Marci DEPUTY COURT CLERK-C Unavailable Unavailabl e Jennifer, [facility] Paristanya W Marci DEPUTY COURT CLERK-C Unavailable Unavailabl e Jennifer, [facility] Paristanya W Marci DEPUTY COURT CLERK-C Unavailable Unavailabl e Jennifer, [facility] Paristanya W Marci DEPUTY COURT CLERK-C Unavailable Unavailabl e Jennifer, [facility] Paristanya W Marci DEPUTY COURT CLERK-C Unavailable Unavailabl e Jennifer, [facility] Paristanya W Marci DEPUTY COURT CLERK-C Unavailable Unavailabl e Jennifer, Regtanya W Marci DEPUTY COURT CLERK-C Unavailable Unavailabl e Jennifer, Regtanya W Marci DEPUTY COURT CLERK-C Unavailable Unavailabl e Sukhwinder Leal MD Unavailable [...] Unavailable PATRICIA, L KENDRA PA Unavailable Unavailable [place], V NAN PA-C Unavailable Unavailable Kip, V NAN PA-C Unavailable Unavailable [place], V NAN PA-C Unavailable Unavailable [place], V NAN PA-C Unavailable Unavailable [place], V NAN PA-C Unavailable Unavailable Kip, V NAN PA-C Unavailable Unavailable [place], V NAN PA-C Unavailable Unavailable Kip, V NAN PA-C Unavailable Unavailable Kip, V NAN PA-C Unavailable Unavailable Kip, V NAN PA-C Unavailable Unavailable [place], V NAN PA-C Unavailable Unavailable Kip, V NAN PA-C Unavailable Unavailable Kip, V NAN PA-C Unavailable Unavailable [place], V NAN PA-C Unavailable Unavailable Re-disclosure Warning [...] is protected by Article 27-F of the [facility] Public Health law. If you continue you may have access to information: Regarding HIV / AIDS; Provided by facilities licensed or operated by the [facility] Office of Mental Health; or Provided by the [facility] Office for People With Developmental Disabilities. If such information is present, then the following [facility] mandated warning applies: This information has [...] law may result in a fine or penitentiary sentence or both. A general authorization for the release of medical or other information is NOT sufficient authorization for further disc losure. Allergies and Adverse Reactions Type Description Substance Reaction Status Data Source(s ) Propensity to adverse reactions SULFA ANTIBIOTICS Sulfa Antibiotics Rash Low Active [facility] Low Propensity to adverse reactions PENICILLINS Penicillins Rash Low Ac tive [facility] Low Propensity to adverse reactions BEE VENOM Honey bee venom Anaphy laxis High Active [facility] High Family History Family Member Name Family Member Gender Family Member Status Date o f Status Description Data Source(s) Unknown Unknown Problem MED[facility] ([facility]) Encounters Encounter Providers Location Date Indications Data Source(s ) Outpatient Attender: Sheree [place] Main office - [facility] n 02/01/2021 08:30:00 AM EST MEDENT ([facility]) Outpatient Attender: Phi ANTONIOBARRETT-SJP.BARRETT 021 12:00:00 AM EDT - 01/24/2021 11:49:43 AM EDT [facility] [place] [address] [address] 01/05/2021 12:00:00 AM EDT eCW1 ([facility]) Outpatient Attender: JEFF WINSTON MD [facility] 01/04/2021 12:30:00 PM EDT MEDENT ([facility]) Outpatient Attender: Phi Zavala nder: NAN Shin PA-CReferrer: Jovany Leal MD [email or web address] 12/14/2020 12:00:00 AM EDT - 12/14/2020 11:08:44 AM EDT [facility] Outpatient Attender: Zonia [place] 11/24/19 09:07:30 AM EDT - 11/23/2020 10:01:13 AM EDT [facility] ([facility] ) [place] [address] [address] 11/18/2020 12:00:00 AM EDT eCW1 ([facility]) Outpatient Attender: DAVID Rea/Helena/Tyson alberto/Tracy 10/28/2020 02:10:00 PM EDT [facility] ([facility]) [place] [address] [address] 10/22/2020 12:00:00 AM EDT eCW1 ([facility]) <td ID="encounterTypeDescriptionID0">5 M onth follow up with testing</td><td>Scott Brady MD, FACS</td><td>[facility]</td><td>10/05/2020</td><td>8:12AM</td><td>9:10AM</td><td><content ID="encounterDiagnosisID0-0">Cataract Senile Nuclear</content>, <content ID="encounterDiagnosisID0-1">Dry Eye Syndrome</content>, <content ID="encounterDiagnosisID0-2">Taking Medication For Diabetes Long-term Use of Oral Hypoglycemics</content>, <content ID="encounterDiagnosisID0-3">Sicca Syndrome with Organ Involvement</content>, <content ID="encounterDiagnosisID0- 4">Diabetes Mellitus Type 2 Without Complication</content>, <content ID="encounterDiagnosisID0-5">Binding Dyer Use of Other Medications</content></td>Outpatient Attender: Scott Holley MD, FACS Scott Brady MD [facility] 10/05/2020 08:12:00 AM EDT - 10/05/2020 09:10:00 AM ED T Diabetes Mellitus Type 2 Without ComplicationTaking Medication For Diabetes Long-term Use of Oral HypoglycemicsDiabetes Mellitus Type 2 Without ComplicationTaking Medication For Diabetes Long-term Use of Oral Hypoglycemics Diabetes Mellitus Type 2 Without ComplicationTaking Medication For Diabetes Long-term Use of Oral HypoglycemicsLong Term Use of Other MedicationsSicca Syndrome with Organ InvolvementLong Term Use of Other MedicationsSicca Syndrome with Organ InvolvementLong Term Use of Other MedicationsSicca Syndrome with Organ InvolvementCataract Senile NuclearCataract Senile NuclearCataract Senile NuclearDry Eye SyndromeDry Eye SyndromeDry Eye Syndrome [place] (Scott Holley MD [facility]) Diabetes Mellitus Type 2 Without Complic ation Taking Medication For Diabetes Long-term Use of Oral Hypoglycemics Diabetes Mellitus Type 2 Without Complic ation Taking Medication For Diabetes Long-term Use of Oral Hypoglycemics Diabetes Mellitus Type 2 Without Complic ation Taking Medication For Diabetes Long-term Use of Oral Hypoglycemics Usp Use of Other Medications Sicca Syndrome with Organ Involvement Usp Use of Other Medications Sicca Syndrome with Organ Involvement Usp Use of Other Medications Sicca Syndrome with Organ Involvement Cataract Senile Nuclear Cataract Senile Nuclear Cataract Senile Nuclear Dry Eye Syndrome Dry Eye Syndrome Dry Eye Syndrome [place] [address] [address] 09/20/2020 12:00:00 AM EDT eCW1 ([facility]) (WC GYNANN) [facility]Center Yearly CORONER/MEDICAL EXAMINER Exam [address] [place] [address] 09/09/2020 12:00:00 AM EDT eCW1 ([facility]) [place] [address] [address] 08/30/2020 12:00:00 AM EDT eCW1 ([facility]) [place] [address] [address] 08/26/2020 12:00:00 AM EDT eCW1 ([facility]) Office Visit Attender: Leonel Stovall MD Physical Therapy 2020 10:00:00 AM EDT MED[facility] ([facility]) Office Visit Attender: Leonel Stovall MD Physical Therapy 2020 10:00:00 AM EDT MED[facility] ([facility]) Outpatient Attender: Delia Rea/Helena/Rajeev/Reindl 08/03/2020 08:00:00 AM EDT MED[facility] ([facility]) Outpatient Attender: Leonel Stovall MD Physical Therapy 07/29/2020 1 0:30:00 AM EDT [facility] ([facility]) [place] [address] [address] 07/26/2020 12:00:00 AM EDT eCW1 ([facility]) Outpatient Attender: KENDRA LAKE Main Office 07/22/2020 1 2:45:00 PM EDT MED[facility] ([facility]) Office Visit Attender: Leonel Stovall MD Physical Therapy 2020 01:00:00 PM EDT [facility] ([facility]) Outpatient [address] [address] 06/22/2020 12:00:00 AM EDT eCW1 ([facility]) Outpatient Attender: DAVID Rea/Helena/Ang el/Reindl 06/15/2020 01:00:00 PM EDT MED[facility] ([facility]) Outpatient Attender: Leonel Stovall MD Physical Therapy 06/15/2020 1 1:15:00 AM EDT MED[facility] ([facility]) Outpatient Attender: Delia Rea/Helena/Rajeev/Reindl 05/27/2020 09:00:00 AM EST MEDENT ([facility]) Outpatient Attender: KENDRA LA[place] Main Office 05/13/2020 0 9:45:00 AM EST MEDENT ([facility]) Unknown [address], [facility] [address] 05/13/2020 12:00:00 AM EST eCW1 ([facility]) TeleMedicine Est. Pt. Level 3 [address] [place] [address] 05/12/2020 12:00:00 AM EST eCW1 ([facility]) Unknown [address] [facility] [address] 05/12/2020 12:00:00 AM EST eCW1 ([facility]) Unknown [address] [facility] [place] [address] 05/10/2020 12:00:00 AM EST eCW1 ([facility]) Unknown [address] [facility] [place] [address] 05/05/2020 12:00:00 AM EST eCW1 ([facility]) Outpatient Attender: LU roy 04/25/2020 08:35:00 AM EST MED[facility] ([facility]) Office Visit Attender: MARU GARCIA MD Physical Therapy 01:45:00 PM EST MEDENT ([facility]) Outpatient [address] [facility] [place] [address] 04/07/2020 12:00:00 AM EST eCW1 ([facility]) <td ID="encounterTypeDescriptionID1">7 M ont Follow-Up</td><td>Scott Holley MD, FACS</td><td>Scott Brady MD [facility]</td><td>04/01/2020</td><td>9:43AM</td><td>10:46AM</td><td><content ID="encounterDiagnosisID1-0">Cataract Senile Nuclear</content>, <content ID="encounterDiagnosisID1-1">Dry Eye Syndrome</content>, <content ID="encounterDiagnosisID1-2">Taking Medication For Diabetes Long-term Use of Oral Hypoglycemics</content>, <content ID="encounterDiagnosisID1-3">Sicca Syndrome with Organ Involvement</content>, <content ID="encounterDiagnosisID1- 4">Diabetes Mellitus Type 2 Without Complication</content>, <content ID="encounterDiagnosisID1-5">Binding Dyer Use of Other Medications</content></td>Outpatient Attender: Scott Holley MD, FACS Scott Brady MD [facility] 04/01/2020 09:43:00 AM EST - 04/01/2020 10:46:00 AM ES T Diabetes Mellitus Type 2 Without ComplicationTaking Medication For Diabetes Long-term Use of Oral HypoglycemicsDiabetes Mellitus Type 2 Without ComplicationTaking Medication For Diabetes Long-term Use of Oral Hypoglycemics Diabetes Mellitus Type 2 Without ComplicationTaking Medication For Diabetes Long-term Use of Oral HypoglycemicsLong Term Use of Other MedicationsSicca Syndrome with Organ InvolvementLong Term Use of Other MedicationsSicca Syndrome with Organ InvolvementLong Term Use of Other MedicationsSicca Syndrome with Organ InvolvementCataract Senile NuclearCataract Senile NuclearCataract Senile NuclearDry Eye SyndromeDry Eye SyndromeDry Eye Syndrome [place] (Scott Holley MD [facility]) Diabetes Mellitus Type 2 Without Complic ation Taking Medication For Diabetes Long-term Use of Oral Hypoglycemics Diabetes Mellitus Type 2 Without Complic ation Taking Medication For Diabetes Long-term Use of Oral Hypoglycemics Diabetes Mellitus Type 2 Without Complic ation Taking Medication For Diabetes Long-term Use of Oral Hypoglycemics Usp Use of Other Medications Sicca Syndrome with Organ Involvement Usp Use of Other Medications Sicca Syndrome with Organ Involvement Usp Use of Other Medications Sicca Syndrome with Organ Involvement Cataract Senile Nuclear Cataract Senile Nuclear Cataract Senile Nuclear Dry Eye Syndrome Dry Eye Syndrome Dry Eye Syndrome [place] [address] [address] 03/16/2020 12:00:00 AM EST eCW1 ([facility]) [place] [address] [address] 03/15/2020 12:00:00 AM EST eCW1 ([facility]) Unknown [address] [address] 03/15/2020 12:00:00 AM EST eCW1 ([facility]) Unknown [address] [address] 03/15/2020 12:00:00 AM EST eCW1 ([facility]) Unknown [address] [address] 03/05/2020 12:00:00 AM EST eCW1 ([facility]) Outpatient [address] [address] 03/02/2020 12:00:00 AM EST eCW1 ([facility]) Emergency Attender: JALYN Brocker: Jovany Leal MD 01/30/2020 03:46:00 PM EST - 01/30/2020 03:55:00 PM [facility] Patient discharged. Unknown [address] [facility] [place] [address] 01/23/2020 12:00:00 AM EDT eCW1 ([facility]) Outpatient Attender: Delia Rea/Helena/Rajeev/Reindl 01/08/2020 02:30:00 PM EDT MED[facility] ([facility]) <td ID="encounterTypeDescriptionID3">BETTY TING - VISUAL FIELD & OCT</td><td>Scott Brady MD, FACS</td><td>[facility]</td><td>01/08/2020</td><td>12:51PM</td><td>1:58PM</td><td><content ID="encounterDiagnosisID3-0">Usp Use of Other Medications</content>, <content ID="encounterDiagnosisID3-1">Sicca Syndrome with Organ Involvement</content></td>Outpatient Attender: Scott Holley MD, CHRISTOS Brady MD [facility] 01/08/2020 12:51:00 PM EDT - 01/08/2020 01:58:00 PM ED T Sicca Syndrome with Organ InvolvementLong Term Use of Other MedicationsSicca Syndrome with Organ InvolvementLong Term Use of Other MedicationsSicca Syndrome with Organ InvolvementLong Term Use of Other Medications [place] (Scott Holley MD [facility]) Sicca Syndrome with Organ Involvement Usp Use of Other Medications Sicca Syndrome with Organ Involvement Usp Use of Other Medications Sicca Syndrome with Organ Involvement Usp Use of Other Medications <td ID="encounterTypeDescriptionID4">VIS UAL FIELD 10-2</td><td>Scott Holley MD, FACS</td><td>Scott Brady MD [facility]</td><td>01/08/2020</td><td>12:48PM</td><td>1:30PM</td><td></td>Outpatient Attender: Scott Holley MD, CHRISTOS Brady MD [facility] 01/08/2020 12:48:0 0 PM EDT - 01/08/2020 01:30:00 PM EDT [place] (Scott Holley MD [facility]) <td ID="[id number]">Rx Refills/Changes</td><td>Scott Holley MD, CHRISTOS</td><td></td><td>02/23/2020</td><td>01/08/2020 10:10AM</td><td>01/08/2020 11:59PM</td><td></td>Outpatient Attender: Scott Holley MD, CHRISTOS 01/08/2020 10:10:00 AM EDT - 01/08/2020 11:59:00 PM EDT [facility] (Scott Holley MD [facility]) [place] [address] [address] 01/07/2020 12:00:00 AM EDT eCW1 ([facility]) [place] [address] [place] [address] 01/07/2020 12:00:00 AM EDT eCW1 ([facility]) Outpatient Att[facility]: [facility]: Jovany Leal MD 04/04/2019 12:16:00 PM EST - 04/04/2019 12:16:00 PM [facility] pital Admission cancelled. Disregard status an d admitted date. Outpatient Attender: Trina BARNES 06/29 02:20:00 PM EDT - 06/29/2017 02:20:00 PM EDT [facility] Immunizations Vaccine Date Status Description Data Source(s) COVID-19 VACCINE Pfizer 08/26/2020 12:00:00 AM EDT completed [facility] Vaccine Series Complete: YESThis Data wa s Submitted to [facility] Via [employer]. COVID-19 VACCINE Pfizer 08/05/2020 12:00:00 AM EDT completed [facility] Vaccine Series Complete: NOThis Data was Submitted to [facility] Via [employer]. Medications Medication Brand Name Start Date Product Form Dose Route Admi nistrative Instructions Pharmacy Instructions Status Indications Reaction Description Data Source(s) Prednisone 10 MG Oral Tablet Prednisone 02/09/2021 12:00:00 AM EST active MEDENT ([facility], ) Azithromycin 250 MG Oral Tablet Azithromycin 02/09/2021 12:00:[address] ORAL active MEDENT ([facility], ) Alprazolam 0.5 MG Oral Tablet ALPRAZOLAM [...] 01/06/2021 12:00:00 AM EDT ORAL active MEDENT ([facility], ) 100 mg 12/30/2020 12:00:00 AM [...] A DAY FOR 10 DAYS SOLD: 12/10/2020 [facility] Levothyroxine Sodium 0.075 MG Oral Table t levothyroxine (SYNTHROID, LEVOTHROID) 75 MCG tablet levothyroxine (SYNTHROID, LEVOTHROID) 75 MCG tablet 12:00:00 AM EDT active TAKE ONE TABLET BY MOUTH EVERY OTHER DAY ALTERNATING WITH 50MCG [facility] Levothyroxine Sodium 0.05 MG Oral Tablet levothyroxine (SYNTHROID, LEVOTHROID) 50 MCG tablet levothyroxine (SYNTHROID, LEVOTHROID) 50 MCG tablet 12:00:00 AM EDT active TAKE ONE TABLET BY MOUTH EVERY OTHER DAY ALTERNATING WITH 75MCG [facility] Sucralfate 100 MG/ML Oral Suspension sucralfate (CARAF ATE) 1 GM/10ML suspension sucralfate (CARAFATE) 1 GM/10ML suspension 12/03/2020 12:00:00 AM EDT active TAKE 10ML BY MOUTH H ASHTYN AN HOUR BEFORE MEALS AND AT BEDTIME 3 TIMES DAILY [facility] Hydroxychloroquine Sulfate 200 MG Oral T ablet hydroxychloroquine (PLAQUENIL) 200 MG tablet hydroxychloroquine (PLAQUENIL) 200 MG tablet 12:00:00 AM EDT active TAKE ONE TABLET B Y MOUTH TWO TIMES DAILY [facility] 150 mg 11/23/2020 12:00:00 AM EDT [...] 12:00:00 AM E DT ORAL completed MEDENT ([facility], ) Prednisone 10 MG Oral Tablet Prednisone 11/22/2020 12:00:00 AM EDT ORAL completed MEDENT ([facility], ) 250 mg 11/22/2020 12:00:00 AM [...] MOUTH TWO ZONIA ES A DAY WITH [facility] 100,000 unit/mL 10/29/2020 12:00:00 AM EDT suspension [...] 12:00:00 A M EDT ORAL completed MEDENT ([facility], ) 100 mg/mL 10/29/2020 12:00:00 AM EDT suspension 840 TAKE 10ML BY MOUTH HALF AN HOUR BEFORE MEALS, AND AT BEDTIME (3 TIMES DAILY) TAKE 10ML BY MOUTH HALF AN HOUR BEFORE MEALS, AND AT BEDTIME (3 TIMES DAILY) SOLD: 12/04/2020 [facility] Azithromycin 500 MG Oral Tablet Azithromycin 500 MG 10/22/2020 1 2:00:00 AM EDT 1.0 {tablet} active Azithromyci n 500 MG eCW1 ([facility]) Nebulizer/Tubing/Mouthpiece UNK 10/22/2020 12:00:00 AM EDT active Nebulizer/Tubing/Mouthpiece eCW1 ([facility]) Diclofenac Sodium 0.01 MG/MG Topical Gel [Voltaren] Voltaren 1 % Voltaren 1 % 10/22/2020 12:00:00 AM EDT active Voltaren 1 % eCW1 ([facility]) Azithromycin 500 MG Oral Tablet Azithromycin 500 MG 10/22/2020 1 2:00:00 AM EDT 1.0 {tablet} active Azithromyci n 500 MG eCW1 ([facility]) Verapamil hydrochloride 120 MG Extended Release Oral Tablet Verapamil HCl ER 120 MG Verapamil HCl ER 120 MG 10/22/2020 12:00:00 AM EDT 1.0 {tablet} active Verapamil HCl ER 120 MG eCW1 (Counts include [facility] beds at [facility]) 120 mg 10/22/2020 12:00:00 AM EDT tablet extended release 30 TAKE ONE TABLET BY MOUTH EVERY DAY TAKE ONE TABLET BY MOUTH EVERY DAY SOLD: 10/22/2020 [facility] Verapamil hydrochloride 120 MG Extended Release Oral Tablet Verapamil HCl ER 120 MG Verapamil HCl ER 120 MG 10/22/2020 12:00:00 AM EDT 1.0 {tablet} active Verapamil HCl ER 120 MG eCW1 (Counts include 234 beds at the [facility]) Azithromycin 500 MG Oral Tablet Azithromycin 500 MG 10/22/2020 1 2:00:00 AM EDT 1.0 {tablet} active Azithromyci n 500 MG eCW1 ([facility]) 500 mg 10/22/2020 12:00:00 AM EDT tablet 5 TAKE ONE TABLET BY MOUTH EVERY DAY FOR 5 DAYS TAKE ONE TABLET BY MOUTH EVERY DAY FOR 5 DAYS SOLD: 10/22/2020 [facility] Nebulizer/Tubing/Mouthpiece UNK 10/22/2020 12:00:00 AM EDT active Nebulizer/Tubing/Mouthpiece eCW1 ([facility]) . UNIT 10/22/2020 12:00:00 AM EDT Misc 1 USE A S DIRECTED USE DIRECTED SOLD: 11/23/2020 [facility] Verapamil hydrochloride 120 MG Extended Release Oral Tablet Verapamil HCl ER 120 MG Verapamil HCl ER 120 MG 10/22/2020 12:00:00 AM EDT 1.0 {tablet} active Verapamil HCl ER 120 MG eCW1 (Counts include 234 beds at the [facility]) Diclofenac Sodium 0.01 MG/MG Topical Gel [Voltaren] Voltaren 1 % Voltaren 1 % 10/22/2020 12:00:00 AM EDT active Voltaren 1 % eCW1 ([facility]) Nebulizer/Tubing/Mouthpiece UNK 10/22/2020 12:00:00 AM EDT active Nebulizer/Tubing/Mouthpiece eCW1 ([facility]) Diclofenac Sodium 0.01 MG/MG Topical Gel [Voltaren] Voltaren 1 % Voltaren 1 % 10/22/2020 12:00:00 AM EDT active Voltaren 1 % eCW1 ([facility]) 1 % 10/22/2020 12:00:00 AM EDT gel 100 APPLY 1 TO 2 GRAMS FOUR TIMES A DAY APPLY 1 TO 2 GRAMS FOUR TIMES A DAY SOLD: 10/22/2020 [facility] . UNIT 10/22/2020 12:00:00 AM EDT Misc 1 USE A S DIRECTED USE DIRECTED SOLD: 10/25/2020 [facility] Albuterol 0.83 MG/ML Inhalant Solution a lbuterol (PROVENTIL) (2.5 MG/3ML) 0.083% nebulizer solution albuterol (PROVENTIL) (2.5 MG/3ML) 0.083 % nebulizer solution 10/20/2020 12:00:00 AM EDT active INHALE THE CONTENTS OF ONE VIAL VIA NEBULIZER FOUR TIMES A DAY NEEDED [facility] montelukast 10 MG Oral Tablet montelukast (SINGULAIR) 10 MG tablet montelukast (SINGULAIR) 10 MG tablet 09/06/2020 12:00:00 AM EDT 10 mg Oral active Take 10 mg by mouth daily [facility] 2 % 08/30/2020 12:00:00 AM EDT [...] EDT active Lidocaine HCl 4 % eCW1 ([facility]) 10 mg 08/03/2020 12:00:00 AM EDT tablet [...] 12:00:00 AM EDT RESPIRATORY activ e MEDENT ([facility], ) Prednisone 10 MG Oral Tablet Prednisone 08/03/2020 12:00:00 AM EDT completed MEDENT ([facility], ) Fluconazole 100 MG Oral Tablet Fluconazole 100 MG 06/22/2020 12:00: 00 AM EDT active Fluconazole 100 MG eCW1 ([facility]) Fluconazole 100 MG Oral Tablet Fluconazole 100 MG 06/22/2020 12:00: 00 AM EDT active Fluconazole 100 MG eCW1 ([facility]) Fluconazole 100 MG Oral Tablet Fluconazole 100 MG 06/22/2020 12:00: 00 AM EDT active Fluconazole 100 MG eCW1 ([facility]) Fluconazole 100 MG Oral Tablet Fluconazole 100 MG 06/22/2020 12:00: 00 AM EDT suspended Fluconazole 100 MG eCW 1 ([facility]) Fluconazole 100 MG Oral Tablet Fluconazole 100 MG 06/22/2020 12:00: 00 AM EDT active Fluconazole 100 MG eCW1 ([facility]) Fluconazole 100 MG Oral Tablet Fluconazole 100 MG 06/22/2020 12:00: 00 AM EDT active Fluconazole 100 MG eCW1 ([facility]) Fluconazole 100 MG Oral Tablet Fluconazole 100 MG 06/22/2020 12:00: 00 AM EDT suspended Fluconazole 100 MG eCW 1 ([facility]) Fluconazole 100 MG Oral Tablet Fluconazole 100 MG 06/22/2020 12:00: 00 AM EDT suspended Fluconazole 100 MG eCW 1 ([facility]) 100 mg 06/22/2020 12:00:00 AM EDT tablet 11 TAKE TWO TABLETS BY MOUTH FOR DAY ONE THEN TAKE ONE TABLET DAILY TAKE TWO TABLETS BY MOUTH FOR DAY ONE TH EN TAKE ONE TABLET DAILY SOLD: 06/22/2020 [facility] Fluconazole 100 MG Oral Tablet Fluconazole 100 MG 06/22/2020 12:00: 00 AM EDT active Fluconazole 100 MG eCW1 ([facility]) Sucralfate 1000 MG Oral Tablet Sucralfate 06/15/2020 12:00:00 AM EDT ORAL completed MEDENT ([facility]) 1 gram 06/15/2020 12:00:00 [...] 12:00:00 AM EST RESPIRATORY completed MEDENT ( [facility], ) 100,000 unit/mL 05/19/2020 12:00:00 AM EST suspension 60 SWISH (GARGLE) AND SWALLOW 5MLS UP TO 4 TIMES A DAY FOR 2-3 DAYS SWISH (GARGLE) AND SWALLOW 5MLS UP TO 4 TIMES A DAY FOR 2-3 DAYS SOLD: 05/20/2020 [facility] Nystatin [id number] UNT/ML Oral Suspension Nystatin 05/19/2020 12:00:00 AM EST active MEDENT ([facility], ) Bisoprolol Fumarate 5 MG Oral Tablet Bisoprolol Fumarate 12:00:00 AM EST ORAL completed MEDENT ([facility]) 5 mg 05/14/2020 12:00:00 AM EST tablet 15 TAKE ONE-HALF TABLET BY MOUTH ONCE DAILY TAKE ONE-HALF TABLET BY MOUTH ONCE DAILY SOLD: 05/15/2020 [facility] carvedilol 3.125 MG Oral Tablet Carvedilol 05/13/2020 12:00:00 AM EST ORAL completed MEDENT ([facility]) carvedilol 3.125 MG Oral Tablet CARVEDILOL 05/13/2020 12:00:00 AM EST tablet 60 TAKE ONE TABLET BY MOUTH TWICE A DAY TAKE ONE TABLET BY MOUT H TWICE A DAY SOLD: 05/13/2020 [facility] Hydroxychloroquine Sulfate 200 MG Oral Tablet [Plaquenil] Pl aquenil 05/12/2020 12:00:00 AM EST ORAL active M EDENT ([facility]) Metformin hydrochloride 1000 MG Oral Tablet Metformin HCL 05/12/2020 12:00:00 AM EST ORAL active MEDENT ([facility]) Prednisone 10 MG Oral Tablet Prednisone 05/12/2020 12:00:00 AM EST ORAL completed MEDENT ([facility]) Sucralfate 1000 MG Oral Tablet Sucralfate 05/12/2020 12:00:00 AM EST ORAL active MEDENT ([facility]) 10 mg 05/07/2020 12:00:00 AM EST [...] ([facility]) 20 mg 04/25/2020 12:00:00 AM EST tablet 10 TAKE TWO TABLETS BY MOUTH EVERY DAY FOR 5 DAYS TAKE TWO TABLETS BY MOUTH EVERY DAY FOR 5 DAYS SOLD: 021 [facility] Doxycycline Monohydrate 100 MG Oral Capsule Doxycycline [place] hydrate 04/25/2020 12:00:00 AM EST ORAL active M EDENT ([facility]) 150 mg 03/29/2020 12:00:00 AM EST tablet 2 TAKE ONE TABLET BY MOUTH EVERY DAY, REPEAT ONCE IN 3 DAYS TAKE ONE TABLET BY MOUTH EVERY DAY, REPE AT ONCE IN 3 DAYS SOLD: 03/31/2020 [facility] Fluconazole 150 MG Oral Tablet [Diflucan] Diflucan 150 MG Di flucan 150 MG 03/15/2020 12:00:00 AM EST 1.0 {tablet} suspended Diflucan 150 MG eCW1 ([facility]) Ciprofloxacin 500 MG Oral Tablet [Cipro] Cipro 500 MG Cipro 500 MG 03/15/2020 12:00:00 AM EST 1.0 {tablet} suspended Cipro 500 MG eCW1 ([facility]) Fluconazole 150 MG Oral Tablet [Diflucan] Diflucan 150 MG Di flucan 150 MG 03/15/2020 12:00:00 AM EST 1.0 {tablet} suspended Diflucan 150 MG eCW1 ([facility]) Ciprofloxacin 500 MG Oral Tablet [Cipro] Cipro 500 MG Cipro 500 MG 03/15/2020 12:00:00 AM EST 1.0 {tablet} active Ci pro 500 MG eCW1 ([facility]) Fluconazole 150 MG Oral Tablet [Diflucan] Diflucan 150 MG Di flucan 150 MG 03/15/2020 12:00:00 AM EST 1.0 {tablet} suspended Diflucan 150 MG eCW1 ([facility]) Ciprofloxacin 500 MG Oral Tablet [Cipro] Cipro 500 MG Cipro 500 MG 03/15/2020 12:00:00 AM EST 1.0 {tablet} suspended Cipro 500 MG eCW1 ([facility]) Fluconazole 150 MG Oral Tablet [Diflucan] Diflucan 150 MG Di flucan 150 MG 03/15/2020 12:00:00 AM EST 1.0 {tablet} active Diflucan 150 MG eCW1 ([facility]) Fluconazole 150 MG Oral Tablet [Diflucan] Diflucan 150 MG Di flucan 150 MG 03/15/2020 12:00:00 AM EST 1.0 {tablet} active Diflucan 150 MG eCW1 ([facility]) Fluconazole 150 MG Oral Tablet [Diflucan] Diflucan 150 MG Di flucan 150 MG 03/15/2020 12:00:00 AM EST 1.0 {tablet} suspended Diflucan 150 MG eCW1 ([facility]) Ciprofloxacin 500 MG Oral Tablet [Cipro] Cipro 500 MG Cipro 500 MG 03/15/2020 12:00:00 AM EST 1.0 {tablet} active Ci pro 500 MG eCW1 ([facility]) Ciprofloxacin 500 MG Oral Tablet [Cipro] Cipro 500 MG Cipro 500 MG 03/15/2020 12:00:00 AM EST 1.0 {tablet} suspended Cipro 500 MG eCW1 ([facility]) Fluconazole 150 MG Oral Tablet [Diflucan] Diflucan 150 MG Di flucan 150 MG 03/15/2020 12:00:00 AM EST 1.0 {tablet} active Diflucan 150 MG eCW1 ([facility]) Fluconazole 150 MG Oral Tablet [Diflucan] Diflucan 150 MG Di flucan 150 MG 03/15/2020 12:00:00 AM EST 1.0 {tablet} suspended Diflucan 150 MG eCW1 ([facility]) Ciprofloxacin 500 MG Oral Tablet [Cipro] Cipro 500 MG Cipro 500 MG 03/15/2020 12:00:00 AM EST 1.0 {tablet} suspended Cipro 500 MG eCW1 ([facility]) 500 mg 03/15/2020 12:00:00 AM EST tablet 14 TAKE ONE TABLET BY MOUTH EVERY 12 HOURS FOR 7 DAYS TAKE ONE TABLET BY MOUTH EVERY 12 HOURS FOR 7 DAYS [facility] Fluconazole 150 MG Oral Tablet [Diflucan] Diflucan 150 MG Di flucan 150 MG 03/15/2020 12:00:00 AM EST 1.0 {tablet} active Diflucan 150 MG eCW1 ([facility]) Fluconazole 150 MG Oral Tablet [Diflucan] Diflucan 150 MG Di flucan 150 MG 03/15/2020 12:00:00 AM EST 1.0 {tablet} suspended Diflucan 150 MG eCW1 ([facility]) Ciprofloxacin 500 MG Oral Tablet [Cipro] Cipro 500 MG Cipro 500 MG 03/15/2020 12:00:00 AM EST 1.0 {tablet} active Ci pro 500 MG eCW1 ([facility]) Ciprofloxacin 500 MG Oral Tablet [Cipro] Cipro 500 MG Cipro 500 MG 03/15/2020 12:00:00 AM EST 1.0 {tablet} active Ci pro 500 MG eCW1 ([facility]) Ciprofloxacin 500 MG Oral Tablet [Cipro] Cipro 500 MG Cipro 500 MG 03/15/2020 12:00:00 AM EST 1.0 {tablet} suspended Cipro 500 MG eCW1 ([facility]) Ciprofloxacin 500 MG Oral Tablet [Cipro] Cipro 500 MG Cipro 500 MG 03/15/2020 12:00:00 AM EST 1.0 {tablet} suspended Cipro 500 MG eCW1 ([facility]) Fluconazole 150 MG Oral Tablet Fluconazole 150 MG 03/05/2020 12:00: 00 AM EST 1.0 {tablet} suspended Fluconazole 150 M G eCW1 ([facility]) Fluconazole 150 MG Oral Tablet Fluconazole 150 MG 03/05/2020 12:00: 00 AM EST 1.0 {tablet} suspended Fluconazole 150 M G eCW1 ([facility]) Fluconazole 150 MG Oral Tablet Fluconazole 150 MG 03/05/2020 12:00: 00 AM EST 1.0 {tablet} suspended Fluconazole 150 M G eCW1 ([facility]) Ciprofloxacin 250 MG Oral Tablet Ciprofloxacin HCl 250 MG Ciprofloxacin HCl 250 MG 03/05/2020 12:00:00 AM EST 1.0 {tablet} suspe nded Ciprofloxacin HCl 250 MG eCW1 ([facility]) Fluconazole 150 MG Oral Tablet Fluconazole 150 MG 03/05/2020 12:00: 00 AM EST 1.0 {tablet} suspended Fluconazole 150 M G eCW1 ([facility]) Ciprofloxacin 250 MG Oral Tablet Ciprofloxacin HCl 250 MG Ciprofloxacin HCl 250 MG 03/05/2020 12:00:00 AM EST 1.0 {tablet} suspe nded Ciprofloxacin HCl 250 MG eCW1 ([facility]) Ciprofloxacin 250 MG Oral Tablet Ciprofloxacin HCl 250 MG Ciprofloxacin HCl 250 MG 03/05/2020 12:00:00 AM EST 1.0 {tablet} suspe nded Ciprofloxacin HCl 250 MG eCW1 ([facility]) Fluconazole 150 MG Oral Tablet Fluconazole 150 MG 03/05/2020 12:00: 00 AM EST 1.0 {tablet} suspended Fluconazole 150 M G eCW1 ([facility]) Fluconazole 150 MG Oral Tablet Fluconazole 150 MG 03/05/2020 12:00: 00 AM EST 1.0 {tablet} suspended Fluconazole 150 M G eCW1 ([facility]) Ciprofloxacin 250 MG Oral Tablet Ciprofloxacin HCl 250 MG Ciprofloxacin HCl 250 MG 03/05/2020 12:00:00 AM EST 1.0 {tablet} suspe nded Ciprofloxacin HCl 250 MG eCW1 ([facility]) Ciprofloxacin 250 MG Oral Tablet Ciprofloxacin HCl 250 MG Ciprofloxacin HCl 250 MG 03/05/2020 12:00:00 AM EST 1.0 {tablet} activ e Ciprofloxacin HCl 250 MG eCW1 ([facility]) Ciprofloxacin 250 MG Oral Tablet Ciprofloxacin HCl 250 MG Ciprofloxacin HCl 250 MG 03/05/2020 12:00:00 AM EST 1.0 {tablet} suspe nded Ciprofloxacin HCl 250 MG eCW1 ([facility]) 250 mg 03/05/2020 12:00:00 AM EST tablet 6 TAKE ONE TABLET BY MOUTH EVERY 12 HOURS TAKE ONE TABLET BY MOUTH EVERY 12 HOURS SOLD: 03/05/2020 [facility] Fluconazole 150 MG Oral Tablet Fluconazole 150 MG 03/05/2020 12:00: 00 AM EST 1.0 {tablet} suspended Fluconazole 150 M G eCW1 ([facility]) Fluconazole 150 MG Oral Tablet Fluconazole 150 MG 03/05/2020 12:00: 00 AM EST 1.0 {tablet} active Fluconazole 150 MG eCW1 ([facility]) Ciprofloxacin 250 MG Oral Tablet Ciprofloxacin HCl 250 MG Ciprofloxacin HCl 250 MG 03/05/2020 12:00:00 AM EST 1.0 {tablet} activ e Ciprofloxacin HCl 250 MG eCW1 ([facility]) Ciprofloxacin 250 MG Oral Tablet Ciprofloxacin HCl 250 MG Ciprofloxacin HCl 250 MG 03/05/2020 12:00:00 AM EST 1.0 {tablet} suspe nded Ciprofloxacin HCl 250 MG eCW1 ([facility]) 150 mg 03/05/2020 12:00:00 AM EST tablet 2 TAKE ONE TABLET BY MOUTH, REPEAT IN THREE DAYS TAKE ONE TABLET BY MOUTH, REPEAT IN THREE DAYS SOLD: 03/05/2020 [facility] Ciprofloxacin 250 MG Oral Tablet Ciprofloxacin HCl 250 MG Ciprofloxacin HCl 250 MG 03/05/2020 12:00:00 AM EST 1.0 {tablet} suspe nded Ciprofloxacin HCl 250 MG eCW1 ([facility]) Ciprofloxacin 250 MG Oral Tablet Ciprofloxacin HCl 250 MG Ciprofloxacin HCl 250 MG 03/05/2020 12:00:00 AM EST 1.0 {tablet} suspe nded Ciprofloxacin HCl 250 MG eCW1 ([facility]) Fluconazole 150 MG Oral Tablet Fluconazole 150 MG 03/05/2020 12:00: 00 AM EST 1.0 {tablet} suspended Fluconazole 150 M G eCW1 ([facility]) Fluconazole 150 MG Oral Tablet Fluconazole 150 MG 03/05/2020 12:00: 00 AM EST 1.0 {tablet} suspended Fluconazole 150 M G eCW1 ([facility]) Ciprofloxacin 250 MG Oral Tablet Ciprofloxacin HCl 250 MG Ciprofloxacin HCl 250 MG 03/05/2020 12:00:00 AM EST 1.0 {tablet} suspe nded Ciprofloxacin HCl 250 MG eCW1 ([facility]) Ciprofloxacin 250 MG Oral Tablet Ciprofloxacin HCl 250 MG Ciprofloxacin HCl 250 MG 03/05/2020 12:00:00 AM EST 1.0 {tablet} suspe nded Ciprofloxacin HCl 250 MG eCW1 ([facility]) Fluconazole 150 MG Oral Tablet Fluconazole 150 MG 03/05/2020 12:00: 00 AM EST 1.0 {tablet} active Fluconazole 150 MG eCW1 ([facility]) 150 mg 03/05/2020 12:00:00 AM EST tablet 2 TAKE ONE TABLET BY MOUTH, REPEAT IN THREE DAYS TAKE ONE TABLET BY MOUTH, REPEAT IN THREE DAYS SOLD: 03/15/2020 [facility] Fluconazole 150 MG Oral Tablet Fluconazole 150 MG 03/05/2020 12:00: 00 AM EST 1.0 {tablet} suspended Fluconazole 150 M G eCW1 ([facility]) Cyclosporine 0.5 MG/ML Ophthalmic Suspen katiuska [Restasis] Restasis 0.05% Ophthalmic Emulsion Restasis 0.05% Ophthalmic Emulsion 02/23/2020 12:00:00 AM EST active cyclospo rine 0.5 MG/ML Ophthalmic Suspension [Restasis] [facility] (Scott Holley MD [facility]) 200 mg 01/20/2020 12:00:00 AM EDT capsule 90 TAKE ONE CAPSULE BY MOUTH THREE TIMES A DAY NEEDED TAKE ONE CAPSULE BY MOUTH THREE TIMES A DAY NEEDED SOLD: 01/24/2020 [facility] 2 ML Sodium Hyaluronate 10 MG/ML Prefilled Syringe [Euflexxa ] Euflexxa 01/09/2020 12:00:00 AM EDT active MEDENT ([facility]) Prednisone 10 MG Oral Tablet Prednisone 01/08/2020 12:00:00 AM EDT ORAL completed MEDENT ([facility], ) 10 mg 01/08/2020 12:00:00 AM [...] Hydrocodone-Acetaminophen 01/05/2020 12:00:00 AM EDT active MEDENT ([facility]) 100,000 unit/mL 12/18/2019 12:00:00 AM EDT [...] 12:00:00 AM E DT ORAL completed MEDENT ([facility], ) 60 ACTUAT formoterol fumarate 0.005 MG/A CTUAT / mometasone furoate 0.2 MG/ACTUAT Metered Dose Inhaler [Dulera] Dulera 10/22/2019 12:00:00 AM EDT RESPIRATORY completed MEDENT ([facility]) Prednisone 10 MG Oral Tablet Prednisone 10/22/2019 12:00:00 AM EDT completed MEDENT ([facility]) 0.625 mg/gram 08/28/2019 12:00:00 AM [...] Ophthalmic Suspension [Restasis] [facility] (Scott Holley MD [facility]) Sucralfate 1000 MG Oral Tablet sucralfate (CARAFATE) 1 g tablet sucralfate (CARAFATE) 1 g tablet 1 g Oral aborted Take 1 g by mouth 3 (three) times a day [facility] Insurance Providers Payer name Policy type / Coverage type Policy ID Covered republican ID Covered republican's relationship to dejesus Policy Dejesus Plan Information [id number] [employer] [id number] Self [id number] [facility] [id number] Self [id number] [facility] [id number] [facility] [id number] [facility] [id number] [facility] [id number] [facility] Commercial [id number] Self [id number] [facility] [id number] R [id number] [facility] [id number] [place] [id number] MEDICARE [id number] [place] [id number] G21 MEDICARE [id number] [place] [id number] G21 MEDICARE [id number] [facility] [employer] [id number] Self [id number] [place] [employer] Medicare Part B [id number] Self [id number] [place] [employer] Medicare [place] B [id number] Self [id number] [employer] [id number] [facility] B [id number] Self [id number] AN[employer]mercial [id number] ANSI-Commercial [id number] ANSI-Commercial [id number] ANSI-Commercial [id number] ANSI-Commercial [id number] ANSI-Commercial [id number] [employer] [place] Other 0 [id number] Self 0 [employer] [place] Other [id number] Self 0 ANSI-Commercial [id number] ANSI-Commercial [id number] ANSI-Commercial [id number] ANSI-Commercial [id number] ANSI-Commercial [id number] [facility] [facility] [place] [id number] Self [id number] ANSI-Commercial [id number]-[id number] ANSI-Commercial [id number]-sda5-45rfu1r491fk [id number]-llv7-14vkg7q640bw ANSI-Commercial 3s0t0q3y-h2j4-3yeo-0775-[id number] 5l0f6p4q-y9d3-9dxh-2321-[id number] ANSI-Commercial cr717ub9-7pdx-956u-s7eh-v84i6ydd1znx rt021wq0-2ruh-688u-j5zq-j06l1bjh2dsk ANSI-Commercial [id number]-g4or-4272k1p58l6m [id number]-s940-032d-e6ib-4046y1k80l5c ANSI-Commercial 6992jy86-b51d-5e08-xd30-[id number]-b72u-7s46-[id number] [facility] [id number] ANSI-Commercial [id number]-[id number]-f22lwsc2c11c 18u85fpw-52q4-0576-179c-s97zalp0x27s ANSI-Commercial 8of8w088-52n3-7s65-y1c2-16r77mlo7f5y 3fi5x233-98f3-5h79-i8o7-76e71cxz7a2s ANSI-Commercial c99p6n92-332h-53o8-np6y-5400w0x5e6u0 w60z7j56-519c-73o9-te7r-4323p7d6o1p3 ANSI-Commercial [id number]-183n-4ty7m4xr9a9i [id number]-611g-0ed2v1vo8c3y ANSI-Commercial [id number]-09s5-6tc1-r042-3ym82g4l6n37 0u07l38x-41z3-5pv0-e059-0kj60d0k5b89 ANSI-Commercial 9776jwl7-3y33-809u-66q0-913q05ol87n4 5406aoz4-6e03-371r-79k5-254g22tk70b9 ANSI-Commercial 71ua1706-7461-99a8-5911-27js3wq86587 86qs2016-8074-98p0-9109-25zg8nu39389 ANSI-Commercial [id number]-430t-[id number] c591p048-9ol9-912l-888f-5yqg281u2599 ANSI-Commercial 8549ls14-35b9-78w2-[id number]-d207-9cj366s64280 ANSI-Commercial [id number]-3400-8lk0-1s07-r0gjfwz95673 8u19m9mg-2581-5yc5-4j49-a8lbuwk41271 ANSI-Commercial 114ve68k-fs8o-9424-0v3c-afe3vq71968k 624yc12h-nh5t-7486-1l1m-dkk8jw45834x ANSI-Commercial av84lz32-j3si-437o-mf4g-5q84pi15e3w3 ak16zc88-n2ax-077f-wh8b-4w84mg02g4c5 [employer] [place] Other 0 [id number] Self 0 [employer] [place] Other 0 [id number] Self 0 [employer] [place] Other 0 [id number] Self 0 ANSI-Commercial [id number]-[id number] ANSI-Commercial [id number]-6299-2811-d2l9-l996014w4j3d 2e78d8mu-7123-9295-g6e1-n865826e6n9e ANSI-Commercial [id number]-q41z-795e-u93g-o41f6ll4o1m0 [id number]-r89l-680p-r51d-c74l4hk2t4b3 ANSI-Commercial 7n01qh6w-9d67-867i-31cq-880213k2u3m7 3g76yl1y-4s45-383b-74hz-817111p4l7w3 ANSI-Commercial 5xnmso0d-5187-5629-u27k-61mz02mjf87s 3salmb8f-1120-4704-p81w-10yc16dpk31d ANSI-Commercial [id number]-r2um-46xt-6441-[id number] 368g3125-p1mp-35nv-3480-n167818i2r77 ANSI-Commercial 57l0c251-535k-1272-o404-78de700oc0zs 06q8c019-705z-7497-s460-70qg977an4xg ANSI-Commercial 19544j97-q5j1-8qij-o5gw-78i575ief94i 37678b03-o3g7-9gfz-r8ta-31l847tsk81o ANSI-Commercial [id number]-69tl-[id number] [id number]-62iy-[id number] r Commercial [id number] Self [id number] r Commercial [id number] Self [id number] ANSI-Commercial [id number]-[id number]-[id number]-r8rz-[id number] ANSI-Commercial we58r60k-0t94-5e7x-gx09-[id number] hr69h52j-9q36-2m4d-mo41-c0986503m37v ANSI-Commercial [id number]-8f5y-28ny-ts36-29619f66mn8j [id number]-9j8p-15ej-[id number] ANSI-Commercial [id number]-d45x-237a-456e-[id number] 6zb9d828-i82k-064f-951t-13090m7mcx35 ANSI-Commercial [id number]-[id number]-[id number] 562z8b20-l084-2t8k-[id number] ANSI-Commercial [id number]-182u-[id number] [id number]-205z-[id number] MEDICARE [id number] SP [id number] 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 .[id number] [facility] .[id number] Commercial Ins jhony Co. [id number] [employer] [id number] S [id number] r Commercial [id number] Self [id number] [employer] [id number] SP [id number] [employer] PPO O [id number] S [id number] [employer] Medigap Part B [id number] Self [employer] Commercial [id number] Self [employer] Commercial [id number] Self [employer] PPO P [id number] S [id number] UMR [id number] S [id number] UMR [facility] [id number] SP [id number] [employer] [place] Other 0 [id number] Self 0 Medicare Part B of [facility] Other 0 [id number] Self 0 [employer] [place] Other 0 [id number] Self 0 Medicare Part B of [facility] Other 0 [id number] Self 0 [employer] [place] Other 0 [id number] Self 0 Medicare Part B of [facility] Other 0 [id number] Self 0 MEDICARE [id number] SP [id number] G21 MEDICARE [id number] SP [id number] A UMR O [id number] S [id number] UMR [id number] S [id number] [employer] [id number] S [id number] [employer] [place] Other 0 [id number] Self 0 [employer] [place] Other 0 [id number] Self 0 R [facility] [id number] SP [id number] Problems, Conditions, and Diagnoses Code Display Name Description Problem Type Effective Dates Data Source(s) I10 Essential (primary) hypertension Essential (primary) h ypertension Diagnosis 01/24/2021 11:19:36 AM EDT [facility] R00.2 Palpitations Palpitations Diagnosis 01/24/2021 11:19:36 A M EDT [facility] R07.9 Chest pain, unspecified Chest pain, unspecified Diagno sis 01/24/2021 11:19:36 AM EDT [facility] E78.2 Mixed hyperlipidemia Mixed hyperlipidemia Diagnosis 01/24/2021 11:19:36 AM EDT [facility] 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 Diagnosis 01/30/2020 03:46:00 PM [facility] 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 (CURRENT) USE OF OPIATE ANALGESIC Diagnosis 01/30/2020 03:46:00 PM [facility] Z79.84 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 OF ORAL HYPOGLYC EMIC DRUGS SOFT TILE 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 OF ORAL HYPOGLYCEMIC DRUGS Diagnosis 01/30/2020 03:46:00 PM [facility] Z79.82 halfway (current) use of aspirin SOFT TILE SETTER (CU RRENT) USE OF ASPIRIN Diagnosis 01/30/2020 03:46:00 PM [facility] J44.9 Chronic obstructive pulmonary disease, u nspecified CHRONIC OBSTRUCTIVE PULMONARY DISEASE, UNSPECIFIED Diagnosis 01/30/2020 03:46:00 PM [facility] M79.661 Pain in right lower leg PAIN IN RIGHT LOWER LEG Diagno sis 01/30/2020 03:46:00 PM [facility] M79.651 Pain in right thigh PAIN IN RIGHT THIGH Diagnosis 1 03/31/2019 03:46:00 PM [facility] M25.561 Pain in right knee PAIN IN RIGHT KNEE Diagnosis 08/2019 03:46:00 PM [facility] M79.89 Other specified soft tissue disorders OT HER SPECIFIED SOFT TISSUE DISORDERS Diagnosis 01/30/2020 03:46:00 PM [facility] l I10 Hypertension Hypertension [id number] 12/14/2020 12:00:00 A M EDT [facility] I10 Essential hypertension Essential (primary) hypertensio n Problem 10/22/2020 12:00:00 AM EDT eCW1 ([facility]) R07.2 Precordial pain Precordial pain Problem 07/22/2020 12:0 0:00 AM EDT [facility] ([facility]) [id number] Allergic asthma without status asthmatic us Allergic asthma without status asthmaticus Problem 05/21/2020 12:00:00 AM EST [facility] R00.2 Palpitations Palpitations [id number] 05/13/2020 12:00:00 A M EST [facility] R00.2 Palpitations Palpitations Problem 05/13/2020 12:00:00 A M EST [facility] ([facility]) N81.6 [id number] Rectocele Problem 04/07/2020 12:00:00 AM ES T eCW1 ([facility]) N81.0 [id number] Urethrocele Problem 04/07/2020 12:00:[address] eCW1 ([facility]) G89.29 [id number] Other chronic pain Problem 03/02/2020 12:00: 00 AM EST eCW1 ([facility]) E78.2 [id number] Mixed hyperlipidemia Problem 03/02/2020 12:0 0:00 AM EST eCW1 ([facility]) Surgeries/Procedures Procedure Description Date Indications Data Source(s) [...] CERVICAL W/O CONTRAST MATRL 12:00:00 [facility] MRI SPINAL CANAL CERVICAL W/O CONTRAST MATRL 12:00:00 AM [facility]T [facility] OFFICE OUTPATIENT NEW 45 MINUTES 01/04/2021 12:00:00 A M EDT [facility] ECG ROUTINE ECG W/LEAST 12 LDS W/I&R <td>POCT AMB EKG</td><td>Routine</td><td>12/14/2020 12:25 PM EDT</td><td> Palpitations Chest pain, unspecified type</td><td> </td> 12/14/2020 12:25:00 PM EDT Chest pain, unspecified typePalpitations [facility] Chest pain, unspecified type Palpitations OFFICE OUTPATIENT VISIT 15 MINUTES 10/28/2020 12:00:00 AM [facility] BLOOD COUNT COMPLETE AUTO&AUTO DIFRNTL WBC COUNT <td>C BC AND DIFFERENTIAL</td><td>Routine</td><td>09/29/2020</td><td></td><td> </td> 09/29/2020 12:00:00 AM EDT [facility] THYROID STIMULATING HORMONE TSH <td>TSH</td><td>Routine</td><td>09/29/2020</td><td></td><td> </td> 09/29/2020 12:00:00 AM EDT [facility] HEPATIC FUNCTION PANEL <td>HEPATIC FUNCTION PANEL</td><td>Routine</td><td>09/29/2020</td><td></td><td> </td> 09/29/2020 12:00:00 AM EDT [facility] LIPID PANEL <td>LIPID PANEL</td><td>Rout ine</td><td>09/29/2020</td><td></td><td> </td> 09/29/2020 12:00:00 AM EDT [facility] BASIC METABOLIC PANEL CALCIUM TOTAL <td>BASIC METABOLI C PANEL</td><td>Routine</td><td>09/29/2020</td><td></td><td> </td> 09/29/2020 12:00:00 AM EDT [facility] ARTHROCENTESIS ASPIR&/INJECTION MAJOR JT/BURSA 12:00:00 AM EDT [facility] ([facility]) ARTHROCENTESIS ASPIR&/INJECTION MAJOR JT/BURSA 021 12:00:00 AM EDT [facility] ([facility]) Spirometry 08/03/2020 12:00:00 AM EDLeigh BRICEÑO ([facility], ) OFFICE OUTPATIENT VISIT 15 MINUTES 08/03/2020 12:00:00 AM EDT [facility] ([facility], ) ARTHROCENTESIS ASPIR&/INJECTION MAJOR JT/BURSA 021 12:00:00 AM EDT [facility] OFFICE OUTPATIENT VISIT 10 MINUTES 07/29/2020 12:00:00 AM EDT [facility] ([facility]) PHYSICIAN TELEPHONE EVALUATION 5-10 MIN 07/08/2020 12: 00:00 AM EDT [facility] ECHO TTHRC R-T 2D W/WOM-MODE COMPL SPEC&COLR DOP 07/05 12:00:00 AM EDT [facility] ([facility]) MRI Lower Extremity Any Joint 07/01/2020 12:00:00 AM E DT [facility] ([facility]) MRI Lower Extremity Any Joint 07/01/2020 12:00:00 AM E DT [facility] ([facility]) XTRNL ECG < 48 HR RECORDING 06/24/2020 12:00:00 AM EDT [facility] ([facility]) XTRNL ECG CONTINUOUS RHYTHM PHYS REVIEW&INTERPJ 2020 12:00:00 AM EDT [facility] ([facility]) OFFICE OUTPATIENT VISIT 15 MINUTES 06/15/2020 12:00:00 AM EDT [facility] ([facility]) MYOCARDIAL SPECT MULTIPLE STUDIES 05/31/2020 12:00:00 AM EST [facility] ([facility]) CV STRS TST XERS&/OR RX CONT ECG PHYS SI&R 05/31/2020 12:00:00 AM EST [facility] ([facility]) Spirometry 05/27/2020 12:00:00 AM EST M [facility]ENT ([facility]) OFFICE OUTPATIENT VISIT 15 MINUTES 05/27/2020 12:00:00 AM EST [facility] ([facility]) ECG ROUTINE ECG W/LEAST 12 LDS W/I&R 05/13/2020 12:00: 00 AM EST [facility] ([facility]) Intermediate Eye Exam Established Patient Intermediate Eye Exam Established Patient 04/01/2020 12:00:00 AM VALENCIA QUINTANILLA (Medardo Holley MD [facility]) ARTHROCENTESIS ASPIR&/INJECTION MAJOR JT/BURSA 12:00:00 AM EST [facility] ([facility]) ARTHROCENTESIS ASPIR&/INJECTION MAJOR JT/BURSA 12:00:00 AM EST [facility] ([facility]) ARTHRS KNE SURG W/MENISCECTOMY MED/LAT W/SHVG 01/29/20 20 12:00:00 AM EST [facility] ([facility]) ARTHROCENTESIS ASPIR&/INJECTION MAJOR JT/BURSA 12:00:00 AM EST [facility] ([facility]) ARTHROCENTESIS ASPIR&/INJECTION MAJOR JT/BURSA 12:00:00 AM EDT [facility] ([facility]) ARTHROCENTESIS ASPIR&/INJECTION MAJOR JT/BURSA 12:00:00 AM EDT [facility] ([facility]) Visual Field Visual Field 01/08/2020 12:00:00 AM RUPERT LAGOS (Scott Holley MD [facility]) Scodi Retina, with interpretation and report Scodi Ret tanya, with interpretation and report 01/08/2020 12:00:00 AM EDT [place] (Medardo Holley MD [facility]) Spirometry 01/08/2020 12:00:00 AM EDT M KEYANNA ([facility]) Results ID Date Data Source [id number] 02/09/2021 08:24:00 AM EST [facility] ([facility]) Name Value Range Interpretation Code Description Data Saige rce(s) Supporting Document(s) PDFReport Laboratory test result [facility] ([facility], ) FVC-Pred 3.11 L [facility] ([facility]) FVC-Pre 2.75 L [facility] ([facility]) FVC-%Pred-Pre 88 L [facility] ([facility]) FVC-LLN 2.47 L [facility] ([facility]) Fev1-Pred 2.43 L [facility] ([facility]) Fev1-Pre 2.34 L [facility] ([facility]) Fev1-%Pred-Pre 96 L [facility] ([facility]) Fev1-LLN 1.89 L [facility] ([facility]) Fev6-Pred 3.01 L [facility] ([facility]) Fev6-Pre 2.75 L [facility] ([facility]) Fev6-%Pred-Pre 91 L [facility] ([facility]) Fev6-LLN 2.38 L [facility] ([facility]) Xug6rop-Pzil 79 % [facility] ([facility]) Ilq6gpd-Niy 85 % [facility] ([facility]) Flq8dux-%Pred-Pre 108 % [facility] ([facility]) Ibe9tdx-WAV 69 % [facility] ([facility]) Snj1lab-Xpan 97 % [facility] ([facility]) Tur3tlk-Quf 100 % [facility] ([facility]) Pfo2vpx-%Pred-Pre 103 % [facility] ([facility]) FEFMax-Pred 6.12 L/E/sec [facility] ([facility]) FEFMax-Pre 5.37 L/E/sec [facility] ([facility]) FEFMax-%Pred-Pre 87 L/E/sec [facility] ([facility]) FEFMax-LLN 4.53 L/E/sec [facility] ([facility]) Ceg3095-Eonj 2.38 L/E/sec [facility] ([facility]) Hcf3060-Tqj 2.96 L/E/sec [facility] ([facility]) Sam8903-%Pred-Pre 124 L/E/sec [facility] ([facility]) Nir5027-RRS 1.23 L/E/sec [facility] ([facility]) ExpTime-Pre 5.68 sec [facility] ([facility]) Mko9cdp3-Ognx 81 % [facility] ([facility]) Wvr9ozm5-Nyi 85 % [facility] ([facility]) Veb2uot9-KVM 73 % [facility] ([facility]) Zpp4uxj3-%Pred-Pre 104 % [facility] ([facility]) ID Date Data Source [id number] 01/07/2021 08:25:00 AM EDT [facility] ([facility]) Name Value Range Interpretation Code Description Data Saige rce(s) Supporting Document(s) Lead [Mass/volume] in Blood Laboratory test result 0-4 [facility] ([facility]) <content>Analysis by inductively coupled plasma/mass</content>
<content>spectrometry (ICP/MS)</content>
<content>Environmental Exposure:</content>
<content>WHO Recommendation <20</content>
<content>Occupational Exposure:</content>
<content>OSHA Lead Std 40</content>
<content>ZANA 30</content>
<content>.</content>
<content>Detection Limit = 1</content>
<content></content> Ceruloplasmin [Mass/volume] in Serum or Plasma 26.1 mg/dL 19.0-39.0 [facility] ([facility], ) Copper [Mass/volume] in Serum or Plasma 88 ug/dL 80-158 [facility] ([facility], ) This test was developed and its performa nce characteristics determined by [facility]. It has not been cleared or approved by the Food and Drug Administration. Detection Limit = 5 Mercury [Mass/volume] in Serum or Plasma Laboratory test result 0.0-1 4.9 [facility] ([facility], ) <content>This test was developed and its performance characteristics</content>
<content>determined by [facility]. It has not been cleared or</content>
<content>approved by the Food and Drug Admi nistration.</content>
<content>Environmental Exposure: <15.0</content>
<content>Occupational Exposure:</content>
<content>ZANA - Inorganic Mercury: 15.0</content>
<content>.</content>
<content> Detection Limit = 1.0</content>
<content>Performed at: - [facility]</content>
<content>[address], [place] [id number]</content>
<content>Exhaust Machine Operator: Flaco Waite MD, Phone: [phone]</content>
<content>Performed at: - [facility]</content>
<content>[address], [place] [id number]</content>
<content>Exhaust Machine Operator: Angie Torres MD, Phone: [phone]</content>
<content></content> ID Date Data Source [id number] 01/07/2021 08:25:00 AM EDT [facility] ([facility], ) Name Value Range Interpretation Code Description Data Saige rce(s) Supporting Document(s) Antinuclear Antibodies Direct Laboratory test result Abnormal (applies to non- numeric results) [facility] ([facility]) Anti Double Strand-Dna AB Laboratory test result 0-9 [facility] ([facility]) <content>Negative <5</content>
<content>Equivocal 5 - 9</content>
<content>Positive >9</content>
<content></content> TAPROOM ATTENDANT Antibodies 1.0 AI 0.0-0.9 [facility] ([facility]) Mckeon Antibodies Laboratory test result 0.0-0.9 [facility] ([facility]) Sjogren's Anti SS-B Laboratory test result 0.0-0.9 [facility] ([facility]) Sjogren's Anti SS-A Laboratory test result 0.0-0.9 [facility] ([facility]) Sheila Comment Laboratory test result MEDEN T ([facility]) . Autoantibody Disease Association Condition Frequency -------- [...] (anti-Mckeon) SLE 15 - 30% ------- --------- TAPROOM ATTENDANT Mixed Connective Tissue Disease 95% (U1 nRNP, SLE 30 - 50% anti-ribonucleoprotein) Polymyositis and/or Dermatomyositis 20% -------- --------- Scl-70 (antiDNA Scleroderma (diffuse) 20 - 35% topoisomerase) Crest 13% -------- --------- Ebonie-1 Polymyositis and/or Dermatomyositis 20 - 40% -------- --------- Centromere B Scleroderma - Crest variant 80% ID Date Data Source [id number] 01/07/2021 08:25:00 AM EDT [facility] Name Value Range Interpretation Code Description Data Saige rce(s) Supporting Document(s) Thiamine [Mass/volume] in Blood 137.4 nmol/L 66.5-200.0 [facility]) This test was developed and its performa nce characteristics determined by [facility]. It has not been cleared or approved by the Food and Drug Administration. Pyridoxine [Mass/volume] in Serum or Plasma 17.4 ug/L 2.0-32.8 [facility], ) This test was developed and its performa nce characteristics determined by [facility]. It has not been cleared or approved by the Food and Drug Administration. ID Date Data Source [id number] 01/07/2021 08:25:00 AM EDT [facility]) Name Value Range Interpretation Code Description Data Saige rce(s) Supporting Document(s) Vitamin E(Alpha Tocopherol) 10.6 mg/L 7.0-25.1 [facility], ) This test was developed and its performa nce characteristics determined by [facility]. It has not been cleared or approved by the Food and Drug Administration. Vitamin E(Gamma Tocopherol) 0.9 mg/L 0.5-5.5 [facility]) This test was developed and its performa nce characteristics determined by [facility]. It has not been cleared or approved by the Food and Drug Administration. Reference intervals for alpha and gamma-tocopherol determined from National Health and Nutrition Examination Survey, 7102-8521. Individuals with alpha-tocopherol levels less than 5.0 mg/L are considered vitamin E deficient. ID Date Data Source [id number] 01/07/2021 08:25:00 AM EDT [facility]) Name Value Range Interpretation Code Description Data Saige rce(s) Supporting Document(s) Reagin Ab [Presence] in Serum by RPR Laboratory test result [facility]) <content>note:<nlbl:demographic_changed> </content>
<content></content> Rheumatoid factor [Units/volume] in Serum or Plasma Laboratory test result [facility] ([facility], ) <content>note:<nlbl:demographic_changed> </content>
<content></content> ID Date Data Source [id number] 01/07/2021 08:25:00 AM EDT [facility] ([facility], ) Name Value Range Interpretation Code Description Data Saige rce(s) Supporting Document(s) Vitamin B12 Level 572 pg/mL [facility] ([facility], ) VITAMIN B12 NORMAL RANGE NORMAL 247 - 911 PG/ML INDETERMINATE 211 - 246 PG/ML DEFICIENT LESS THAN 211 PG/ML Folate 23.5 ng/mL [facility] ([facility], ) FOLATE NORMAL RANGE NORMAL GREATER THAN 5.4 NG/ML INDETERMINATE 3.4-5.4 NG/ML DEFICIENT LESS THAN 3.4 NG/ML ID Date Data Source [id number] 01/07/2021 08:25:00 AM EDT [facility] ([facility], ) Name Value Range Interpretation Code Description Data Saige rce(s) Supporting Document(s) Albumin % 65.0 % 55.8-66.1 [facility] ([facility], ) Kecot-2-Fielhwxu % 3.3 % 2.9-4.9 [facility] ([facility], ) Vcisn-4-Gddqiaswi % 10.2 % 7.1-11.8 [facility] ([facility], ) Xahz-3-Qpzwglrzl % 6.7 % 4.7-7.2 [facility] ([facility], ) Wlrx-8-Ylhkhrlvx % 4.8 % 3.2-6.5 [facility] ([facility], ) Gamma Globulin % 10.0 % 11.1-18.8 [facility] ([facility], ) Albumin 4.88 GM/DL 3.29-5.55 [facility] ([facility], ) Hiquk-6-Cycqnhlqn 0.25 GM/DL 0.17-0.41 [facility] ([facility], ) Nzkuv-8-Yteitpsrc 0.77 GM/DL 0.42-0.99 [facility] ([facility], ) Zruy-3-Vjgvsrxnx 0.50 GM/DL 0.28-0.60 [facility] ([facility], ) Gamma Globulins 0.75 GM/DL 0.65-1.58 [facility] ([facility]) Vqwb-2-Yrhjeknil 0.36 GM/DL 0.19-0.55 [facility] ([facility]) Total Protein 7.4 GM/DL 6.4-8.2 [facility] ([facility]) Spep Interpretation Laboratory [facility] NO M-SPIKE(S)NOTED. Laboratory test finding (navigational concept) Laboratory test result [facility] ([facility]) ID Date Data Source [id number] 01/07/2021 08:25:00 AM EDT [facility] Name Value Range Interpretation Code Description Data Saige rce(s) Supporting Document(s) Blood Urea Nitrogen 9 mg/dL 7-18 [facility] ([facility]) Glucose, Fasting 128 mg/dL 70-100 [facility] ([facility]) Creatinine For GFR 0.72 mg/dL 0.55-1.30 [facility] ([facility]) Glomerular Filtration Rate Laboratory test result [facility] ([facility]) <content>Units are mL/min/1.73 m2</content>
<content></content>
<content>Chronic Kidney Disease Staging per NKF:</content>
<content></content>
<content>Stage I & II GFR >=60 Normal to Mildly Decreased</content>
<content>Stage III GFR 30- 59 Moderately Decreased</content>
<content>Stage IV GFR 15-29 Severely Decreased</content>
<content>Stage V GFR <15 Very Little GFR Left</content>
<content>ESRD GFR <15 on INSEAM TRIMMER</content>
<content></content> Sodium Level 139 meq/L 136-145 [facility] ([facility]) Potassium Serum 3.9 meq/L 3.5-5.1 [facility] ([facility]) Chloride Level 105 meq/L 98-107 [facility] ([facility]) Carbon Dioxide Level 29 meq/L 21-32 [facility] ([facility]) Anion Gap 5 meq/L 8-16 [facility] ([place] [facility] Calcium Level 9.3 mg/dL 8.5-10.1 MED[facility] ([facility]) Ast/Sgot 21 U/L 7-37 [facility] ([facility]) Alt/SGPT 52 U/L 12-78 [facility] ([facility]) Alkaline Phosphatase 93 U/L 45-117 [facility] ([facility]) Bilirubin,Total 0.4 mg/dL 0.2-1.0 [facility] ([facility]) Total Protein 7.4 GM/DL 6.4-8.2 [facility] ([facility]) Albumin 4.2 GM/DL 3.2-5.2 [facility] ([facility]) Albumin/Globulin Ratio 1.3 1.2-2.2 [facility] ([facility]) ID Date Data Source [id number] 01/07/2021 08:25:00 AM EDT [facility] Name Value Range Interpretation Code Description Data Saige rce(s) Supporting Document(s) Erythrocyte sedimentation rate by 2H Westergren method 9 mm/hr 0-3 0 [facility] ([facility]) ID Date Data Source [id number] 01/07/2021 08:25:00 AM EDT [facility]) Name Value Range Interpretation Code Description Data Saige rce(s) Supporting Document(s) White Blood Count 8.8 10 4.0-10.0 [facility] ([facility], ) Red Blood Count 4.42 10 4.00-5.40 [facility] ([facility]) Hemoglobin 13.1 g/dL 12.0-15.5 [facility] ([facility]) Mean Corpuscular Volume 93.9 fl 80.0-96.0 M EDENT ([facility]) Hematocrit 41.5 % 36.0-47.0 [facility] ([facility]) Mean Corpuscular Hemoglobin 29.6 pg 27.0-33.0 [facility] ([facility]) Mean Corpuscular HGB Conc 31.6 g/dL 32.0-36.5 [facility] ([facility]) Red Cell Distribution Width 13.2 % 11.5-14.5 [facility] ([facility]) Platelet Count, Automated 359 10 150-450 [facility] ([facility]) Neutrophils % 53.8 % 36.0-66.0 [facility] ([facility]) Lymph % 31.9 % 24.0-44.0 [facility] ([facility]) [place] % 9.6 % 2.0-8.0 [facility] ([facility]) Eos % 2.9 % 0.0-3.0 [facility] ([facility]) Baso % 1.2 % 0.0-1.0 [facility] ([facility]) Immature Granulocyte % 0.6 % 0-3.0 [facility] ([facility]) Nucleated Red Blood Cell % 0.0 % 0-0 MED [facility] ([facility]) Lymph # 2.8 10 1.5-5.0 [facility] ([facility]) Neutrophils # 4.7 10 1.5-8.5 [facility] ([facility]) [place] # 0.9 10 0.0-0.8 [facility] ([facility]) Eos # 0.3 10 0.0-0.5 [facility] ([facility]) Baso # 0.1 10 0.0-0.2 [facility] ([facility]) ID Date Data Source [id number] 01/07/2021 08:25:00 AM EDT [facility]) Name Value Range Interpretation Code Description Data Saige rce(s) Supporting Document(s) Hemoglobin A1c 6.1 % [facility]) <content>REFERENCE RANGES:</content><br/ ><content></content>
<content><=5.6% NORMAL</content>
<content>5.7-6.4% SUGGESTS IMPAIRED GLUCOSE METABOLISM/PREDIABETIC</content>
<content>>= 6.5% ABNORMAL</content>
<content></content> Estimated Average Glucose 128 mg/dL 60-110 [facility] ([facility]) ID Date Data Source [id number] 11/23/2020 09:15:00 AM EDT [facility] Name Value Range Interpretation Code Description Data [...] 1.020 1.002 - 1.035 Spec gravity eCW1 ([facility]) neg Negative - Leukocyte eCW1 ([facility]) 6 5.0 - 9.0 pH eCW1 ([facility]) neg Negative - Nitrate eCW1 ([facility]) neg Negative - mg/dl Glucose eCW1 ([facility]) neg Negative - mg/dl Protein eCW1 ([facility]) neg Negative - Bilirubin eCW1 ([facility]) norm Normal - mg/dl Urobili eCW1 ([facility]) neg Negative - mg/dl Ketones eCW1 ([facility]) yes Internal QC Acceptable (Y/N) e CW1 ([facility]) neg Negative - Blood eCW1 ([facility]) ID Date Data Source [id number] 05/27/2020 09:58:00 AM EST [facility] ([facility], ) Name Value Range Interpretation Code Description Data Saige rce(s) Supporting Document(s) PDFReport Laboratory test result [facility] ([facility], ) FVC-Pred 3.11 L MED[facility] ([facility]) FVC-%Pred-Pre 90 L MED[facility] ([facility]) FVC-Pre 2.81 L [facility] ([facility]) FVC-LLN 2.47 L [facility] ([facility]) Fev1-Pre 2.38 L [facility] ([facility], ) Fev1-Pred 2.43 L [facility] ([facility]) Fev1-%Pred-Pre 98 L [facility] ([facility]) Fev1-LLN 1.89 L [facility] ([facility]) Fev6-Pre 2.81 L [facility] ([facility]) Fev6-Pred 3.01 L [facility] ([facility]) Fev6-%Pred-Pre 93 L [facility] ([facility]) Fev6-LLN 2.38 L [facility] ([facility]) Pom3shk-Xqmh 79 % [facility] ([facility]) Bix6tyx-Bwm 85 % [facility] ([facility]) Oew3vki-%Pred-Pre 107 % [facility] ([facility]) Zbd3moq-YRG 69 % [facility] ([facility]) Moo1siv-Vskp 97 % [facility] ([facility]) Yrp1pij-Gmm 100 % [facility] ([facility]) Zxi7tzr-%Pred-Pre 103 % [facility] ([facility]) FEFMax-Pred 6.12 L/E/sec [facility] ([facility]) FEFMax-Pre 5.92 L/E/sec [facility] ([facility]) FEFMax-%Pred-Pre 96 L/E/sec [facility] ([facility]) FEFMax-LLN 4.53 L/E/sec [facility] ([facility]) Eql3232-Gpmm 2.38 L/E/sec [facility] ([facility]) Htk2095-Ofi 2.90 L/E/sec [facility] ([facility]) Tsf7948-%Pred-Pre 122 L/E/sec [facility] ([facility]) ExpTime-Pre 5.86 sec [facility] ([facility]) Qcr5962-IGJ 1.23 L/E/sec [facility] ([facility], ) Fls6uml0-Ngb 85 % [facility] ([facility]) Omb2wba8-Kvvq 81 % [facility] ([facility]) Tcd5jgz3-%Pred-Pre 104 % [facility] ([facility]) Prt0oef8-AAF 73 % [facility] ([facility]) ID Date Data Source [id number] 05/21/2020 07:26:00 AM EST [facility] ([facility]) Name Value Range Interpretation Code Description Data Saige rce(s) Supporting Document(s) Magnesium [Mass/volume] in Serum or Plasma 2.3 mg/dL 1.8-2.4 [facility] ([facility]) <content>note:<nlbl:demographic_changed> </content>
<content></content> ID Date Data Source [id number] 05/21/2020 07:26:00 AM EST [facility] ([facility]) Name Value Range Interpretation Code Description Data Saige rce(s) Supporting Document(s) Blood Urea Nitrogen 13 mg/dL 7-18 [facility] ([facility]) Glucose, Fasting 108 mg/dL 70-100 [facility] Glomerular Filtration Rate Laboratory test result [facility] ([facility]) <content>Units are mL/min/1.73 m2</content>
<content></content>
<content>Chronic Kidney Disease Staging per NKF:</content>
<content></content>
<content>Stage I & II GFR >=60 Normal to Mildly Decreased</content>
<content>Stage III GFR 30- 59 Moderately Decreased</content>
<content>Stage IV GFR 15-29 Severely Decreased</content>
<content>Stage V GFR <15 Very Little GFR Left</content>
<content>ESRD GFR <15 on INSEAM TRIMMER</content>
<content></content> Creatinine For GFR 0.78 mg/dL 0.55-1.30 [facility] ([facility]) Chloride Level 105 meq/L 98-107 [facility] ([facility]) Potassium Serum 3.9 meq/L 3.5-5.1 [facility] ([facility]) Sodium Level 141 meq/L 136-145 [facility] ([facility]) Anion Gap 6 meq/L 8-16 [facility] ([facility]) Carbon Dioxide Level 30 meq/L 21-32 [facility] ([facility]) Calcium Level 9.4 mg/dL 8.5-10.1 [facility] ([facility]) Alt/SGPT 32 U/L 12-78 [facility] ([facility]) Ast/Sgot 4 U/L 7-37 [facility] ([facility]) Total Protein 6.7 GM/DL 6.4-8.2 [facility] ([facility]) Alkaline Phosphatase 58 U/L 45-117 [facility] ([facility]) Bilirubin,Total 0.3 mg/dL 0.2-1.0 [facility] ([facility]) Albumin/Globulin Ratio 1.6 1.2-2.2 [facility] ([facility]) Albumin 4.1 GM/DL 3.2-5.2 [facility] ([facility]) ID Date Data Source [id number] 05/21/2020 07:26:00 AM EST [facility] ([facility]) Name Value Range Interpretation Code Description Data Saige rce(s) Supporting Document(s) Cholesterol Level 231 mg/dL [facility] ([facility]) Triglycerides Level 181 mg/dL [facility] ([facility]) HDL Cholesterol 68 mg/dL [facility] ([facility]) LDL Cholesterol 127 mg/dL [facility] ([facility]) Non-HDL-C 163 mg/dL [facility] ([facility]) Cholesterol Risk Ratio 3.397 [facility] ([facility]) ID Date Data Source [id number] 05/21/2020 07:26:00 AM EST [facility] ([facility]) Name Value Range Interpretation Code Description Data Saige rce(s) Supporting Document(s) Free T4 0.96 ng/dL 0.76-1.46 [facility] ([facility]) Thyroid Stimulating Hormone 2.140 uIU/ML 0.358-3.740 [facility] ([facility]) ID Date Data Source [id number] 05/21/2020 07:26:00 AM EST [facility] ([facility] [place] [place]) Name Value Range Interpretation Code Description Data Saige rce(s) Supporting Document(s) C reactive protein [Mass/volume] in Serum or Plasma by High sensitivity method 0.30 mg/dL 0.00-0.30 [facility] ([facility] [employer]) <content>note:<nlbl:demographic_changed> </content>
<content></content> ID Date Data Source [id number] 05/21/2020 07:26:00 AM EST [facility] ([facility] [place] [place]) Name Value Range Interpretation Code Description Data Saige rce(s) Supporting Document(s) White Blood Count 8.1 10 4.0-10.0 [facility] ([facility]) Red Blood Count 4.09 10 4.00-5.40 [facility] ([facility]) Mean Corpuscular Volume 92.2 fl 80.0-96.0 M EDENT ([facility]) Hematocrit 37.7 % 36.0-47.0 [facility] ([facility]) Hemoglobin 11.7 g/dL 12.0-15.5 [facility] ([facility]) Mean Corpuscular HGB Conc 31.0 g/dL 32.0-36.5 [facility] ([facility]) Mean Corpuscular Hemoglobin 28.6 pg 27.0-33.0 [facility] ([facility]) Platelet Count, Automated 296 10 150-450 [facility] ([facility]) Red Cell Distribution Width 14.3 % 11.5-14.5 [facility] ([facility]) Neutrophils % 48.1 % 36.0-66.0 [facility] ([facility]) Lymph % 40.3 % 24.0-44.0 [facility] [place] % 8.2 % 2.0-8.0 [facility] ([facility]iology A [...] 1.5-5.0 [facility] ([facility] [place] # 0.7 10 0.0-0.8 [facility] ([facility] Eos # 0.1 10 0.0-0.5 [facility] ([facility] Baso # 0.1 10 0.0-0.2 [facility] ([facility] ID Date Data Source [id number] 05/21/2020 07:26:00 AM EST [facility] ([facility]) Name Value Range Interpretation Code Description Data Saige rce(s) Supporting Document(s) Hemoglobin A1c 6.3 % [facility] ([facility]) <content>REFERENCE RANGES:</content><br/ ><content></content>
<content><=5.6% NORMAL</content>
<content>5.7-6.4% SUGGESTS IMPAIRED GLUCOSE METABOLISM/PREDIABETIC</content>
<content>>= 6.5% ABNORMAL</content>
<content></content> Estimated Average Glucose 134 mg/dL 60-110 [facility] ([facility]) ID Date Data Source [id number] 05/21/2020 07:26:00 AM EST [facility] ([facility]) Name Value Range Interpretation Code Description Data Saige rce(s) Supporting Document(s) Erythrocyte sedimentation rate by Westergren method 7 mm/hr 0-30 [facility] ([facility]) ID Date Data Source [id number] 05/07/2020 12:37:00 PM EST [facility] ([facility]) Name Value Range Interpretation Code Description Data Saige rce(s) Supporting Document(s) Magnesium Level 2.5 1.8-2.4 [facility] ([facility]) ID Date Data Source [id number] 05/07/2020 12:37:00 PM EST [facility] Name Value Range Interpretation Code Description Data Saige rce(s) Supporting Document(s) Calcium [Mass/volume] in Serum or Plasma 7.8 [facility] ([facility]) Carbon dioxide, total [Moles/volume] in Serum or Plasma 27 [facility] ([facility]) Sodium 142 [facility] Potassium [Moles/volume] in Serum or Plasma 3.8 [facility] ([facility]) Chloride [Moles/volume] in Serum or Plasma 108 [facility] ([facility]) Creatinine 0.67 0.6-1.0 [facility] ([facility]) Glucose 107 83-110 [facility] Blood Urea Nitrogen 8 7-18 [facility] ([facility]) Glomerular filtration rate/1.73 sq M.pre dicted [Volume Rate/Area] in Serum or Plasma by Creatinine-based formula (MDRD) Laboratory test result [facility] ([facility]) ID Date Data Source [id number] 05/07/2020 12:37:00 PM EST [facility] ([facility]) Name Value Range Interpretation Code Description Data Saige rce(s) Supporting Document(s) White Blood Count 14.4 5.0-10.0 [facility] ([facility]) Red Blood Count 3.97 4.00-5.40 [facility] ([facility]) Platelets 264 172-450 [facility] ([facility]) Hemoglobin 11.6 [facility] ([facility]) Hematocrit 37.0 [facility] ([facility]) ID Date Data Source [id number] 05/06/2020 12:39:00 PM EST [facility] ([facility] Name Value Range Interpretation Code Description Data Saige rce(s) Supporting Document(s) Magnesium Level 2.7 1.8-2.4 [facility] ([facility]) ID Date Data Source [id number] 05/06/2020 12:39:00 PM EST [facility] ([facility]) Name Value Range Interpretation Code Description Data Saige rce(s) Supporting Document(s) Red Blood Count 4.64 4.00-5.40 [facility] ([facility]) White Blood Count 11.9 5.0-10.0 [facility] ([facility]) Platelets 371 172-450 [facility] Hemoglobin 13.3 [facility] ([facility]) Hematocrit 41.3 [facility] ([facility]) ID Date Data Source [id number] 05/06/2020 12:39:00 PM EST [facility] Name Value Range Interpretation Code Description Data Saige rce(s) Supporting Document(s) Sodium 143 [facility] ([facility]) Calcium [Mass/volume] in Serum or Plasma 8.1 [facility] ([facility]) Carbon dioxide, total [Moles/volume] in Serum or Plasma 27 [facility] ([facility]) Chloride [Moles/volume] in Serum or Plasma 106 [facility] ([facility]) Glucose 148 83-110 [facility] ([facility]) Potassium [Moles/volume] in Serum or Plasma 4.3 [facility] ([facility]) Blood Urea Nitrogen 9 7-18 [facility] ([facility]) Creatinine 0.73 0.6-1.0 [facility] ([facility]) Glomerular filtration rate/1.73 sq M.pre dicted [Volume Rate/Area] in Serum or Plasma by Creatinine-based formula (MDRD) Laboratory test result [facility] ([facility]) ID Date Data Source [id number] 05/05/2020 02:45:00 PM EST [facility] Name Value Range Interpretation Code Description Data Saige rce(s) Supporting Document(s) SARS-CoV-2 (COVID 19) NEGATIVE - SARS-CoV-2 (COVID19) [facility] This lab was ordered by [facility] a nd reported by [facility]. ID Date Data Source [id number] 04/25/2020 12:00:00 AM EST [facility] Name Value Range Interpretation Code Description Data Saige rce(s) Supporting Document(s) SARS coronavirus 2 Ag Negative [facility] This lab was ordered by [facility] and reported by [facility]. ID Date Data Source URINE CULTURE 03/15/2020 12:00:00 AM EST eCW1 ([facility]) Name Value Range Interpretation Code Description Data Saige rce(s) Supporting Document(s) URINE CULTURE eCW1 ([facility]) ID Date Data Source BEDSIDE GLUCOSE 03/02/2020 12:00:00 AM EST eCW1 ([facility]) Name Value Range Interpretation Code Description Data Saige rce(s) Supporting Document(s) 114 BEDSIDE GLUCOSE eCW1 ([facility]) ID Date Data Source Urinalysis, no micro 03/02/2020 12:00:00 AM EST eCW1 ([facility]) Name Value Range Interpretation Code Description Data Saige rce(s) Supporting Document(s) 1.020 1.002 - 1.035 Spec gravity eCW1 ([facility]) 5 5.0 - 9.0 pH eCW1 ([facility]) positive Negative - Leukocyte eCW1 ([facility]) neg Negative - Nitrate eCW1 ([facility]) trace Negative - mg/dl Protein eCW1 ([facility]) neg Negative - mg/dl Glucose eCW1 ([facility]) neg Negative - mg/dl Ketones eCW1 ([facility]) normal Normal - mg/dl Urobili eCW1 ([facility]) 50 Negative - Blood eCW1 ([facility]) neg Negative - Bilirubin eCW1 ([facility]) yes Internal QC Acceptable (Y/N) e CW1 ([facility]) ID Date Data Source [id number] 01/30/2020 04:42:00 PM EST [facility] Patient: ELHAM VERAS [facility] R [facility] - Phys[facility].VisitID: [id number] [place] [address] [phone], FRegistration Date/Time: 01/30/2020 14:32 Weight:63.5 kg (S). [...] rce(s) Supporting Document(s) ID Date Data Source [id number] 01/30/2020 04:00:00 PM EST [facility] [...] rce(s) Supporting Document(s) ID Date Data Source [id number] 01/24/2020 11:00:00 AM EDT MED[facility] ([facility]) Name Value Range Interpretation Code Description Data Saige rce(s) Supporting Document(s) Coronavirus 2019 Nasopharygeal Laboratory [facility] This nucleic acid amplification test was developed and its performance characteristics determined by [employer]. Nucleic acid amplification tests include PCR and [...] detected) result in this assay. Performed at: [facility] [id number] Exhaust Machine Operator: Angie Torres MD, Phone: [phone] Not Detected ID Date Data Source [id number] 01/24/2020 11:00:00 AM EDT [facility] Name Value Range Interpretation Code Description Data [facility] rce(s) Supporting Document(s) SARS coronavirus 2 RNA [facility] This lab was ordered by [facility] and reported by [facility]. ID Date Data Source [id number] 01/08/2020 02:21:00 PM EDT MED[facility] ([facility]) Name Value Range Interpretation Code Description Data Saige rce(s) Supporting Document(s) FVC-Pre 2.99 L MEDENT ([facility], ) PDFReport Laboratory test result MEDENT ([facility]) FVC-Pred 3.13 L MED[facility] ([facility]) FVC-%Pred-Pre 95 L MEDENT ([facility]) FVC-LLN 2.49 L MED[facility] ([facility]) Fev1-Pred 2.45 L [facility] ([facility]) Fev1-LLN 1.91 L MED[facility] ([facility]) Fev1-%Pred-Pre 103 L MEDENT ([facility]) Fev1-Pre 2.53 L MED[facility] ([facility]) Fev6-Pre 2.99 L [facility] ([facility]) Fev6-Pred 3.03 L MED[facility] ([facility]) Fev6-%Pred-Pre 98 L MED[facility] ([facility]) Fev6-LLN 2.41 L MED[facility] ([facility]) Uey2hbu-Ymzr 79 % MED[facility] ([facility]) Jrn8uwu-Nel 85 % MED[facility] ([facility]) Njh3dly-ABG 69 % MED[facility] ([facility]) Tte9vlp-%Pred-Pre 107 % MED[facility] ([facility]) Omo9oao-Qtd 100 % MED[facility] ([facility]) Shf7wtg-%Pred-Pre 103 % MED[facility] ([facility]) Dnz4jka-Edhh 97 % MED[facility] ([facility]) FEFMax-%Pred-Pre 81 L/E/sec MED[facility] ([facility]) FEFMax-Pre 5.02 L/E/sec MED[facility] ([facility]) FEFMax-Pred 6.16 L/E/sec MED[facility] ([facility]) FEFMax-LLN 4.58 L/E/sec MED[facility] ([facility]) Itp9490-Wys 3.10 L/E/sec MED[facility] ([facility]) Gjj6540-Xnmu 2.42 L/E/sec MED[facility] ([facility]) Dud6429-XRC 1.27 L/E/sec MED[facility] ([facility]) Kpf0814-%Pred-Pre 128 L/E/sec MED[facility] ([facility]) ExpTime-Pre 5.52 sec MEDENT ([facility]) Yxx4zmh8-%Pred-Pre 103 % MEDENT ([facility]) Ulv0fdb1-Coo 85 % MED[facility] ([facility]) Idj0fql8-Rsbl 82 % MED[facility] ([facility]) Mvc7uzc6-XPV 73 % MED[facility] ([facility]) Procedure Social History Code Duration Value Status Description Data Source(s ) Alcohol intake 01/22/2021 12:00:00 AM EDT Lifetime non-drinker (finding) completed Lifetime non-drinker (finding) [facility] Smoking 01/01/2021 12:00:00 AM EDT Former Smoker completed Former Smoker eCW1 ([facility]) Smoking 12/14/2020 12:00:00 AM EDT Never smoker completed Never s moker [facility] Alcohol intake 12/14/2020 12:00:00 AM EDT Lifetime non-drinker (finding) completed Lifetime non-drinker (finding) [facility] Smoking 11/16/2020 10:55:09 AM EDT Never smoked tobacco (findi ng) completed Never smoked tobacco (finding) [place] (Scott Holley MD [facility]) Smoking 10/22/2020 12:00:00 AM EDT Former Smoker completed Former Smoker eCW1 ([facility]) Smoking 10/22/2020 12:00:00 AM EDT Former Smoker completed Former Smoker eCW1 ([facility]) Smoking 10/05/2020 09:11:37 AM EDT Never smoked tobacco (findi ng) completed Never smoked tobacco (finding) [place] (Scott Holley [facility] HOME) Smoking 09/09/2020 12:00:00 AM EDT Former Smoker completed Former Smoker eCW1 ([facility]) Smoking 09/09/2020 12:00:00 AM EDT Former Smoker completed Former Smoker eCW1 ([facility]) Smoking 06/22/2020 12:00:00 AM EDT Former Smoker completed Former Smoker eCW1 ([facility]) Smoking 06/22/2020 12:00:00 AM EDT Former Smoker completed Former Smoker eCW1 ([facility]) Smoking 06/22/2020 12:00:00 AM EDT Former Smoker completed Former Smoker eCW1 ([facility]) Smoking 06/22/2020 12:00:00 AM EDT Former Smoker completed Former Smoker eCW1 ([facility]) Smoking 05/13/2020 12:00:00 AM EST Patient is a former smoker completed Patient is a former smoker MED[facility] ([facility]) Smoking 05/12/2020 12:00:00 AM EST Former Smoker completed Former Smoker eCW1 ([facility]) Smoking 05/12/2020 12:00:00 AM EST Former Smoker completed Former Smoker eCW1 ([facility]) Smoking 05/12/2020 12:00:00 AM EST Former Smoker completed Former Smoker eCW1 ([facility]) Smoking 05/12/2020 12:00:00 AM EST Former Smoker completed Former Smoker eCW1 ([facility]) Smoking 04/25/2020 12:00:00 AM EST Patient has never smoked co mpleted Patient has never smoked [facility] ([facility], [facility]) Smoking 04/07/2020 12:00:00 AM EST Former Smoker completed Former Smoker eCW1 ([facility]) Smoking 04/07/2020 12:00:00 AM EST Former Smoker completed Former Smoker eCW1 ([facility]) Smoking 03/15/2020 12:00:00 AM EST Former Smoker completed Former Smoker eCW1 ([facility]) Smoking 03/15/2020 12:00:00 AM EST Former Smoker completed Former Smoker eCW1 ([facility]) Smoking 03/15/2020 12:00:00 AM EST Former Smoker completed Former Smoker eCW1 ([facility]) Smoking 03/15/2020 12:00:00 AM EST Former Smoker completed Former Smoker eCW1 ([facility]) Smoking 03/02/2020 12:00:00 AM EST Former Smoker completed Former Smoker eCW1 ([facility]) Smoking 03/02/2020 12:00:00 AM EST Former Smoker completed Former Smoker eCW1 ([facility]) Vital Signs ID Date Data Source UNK Name Value Range Interpretation Code Description Data Source(s) Diastolic blood pressure 80 mm[Hg] 80 mm[Hg] [facility] ([facility]) Heart rate 85 /min 85 /min [facility] ([facility]) Oxygen saturation in Arterial blood by Pulse oximetry 97 % 97 % [facility] ([facility]) Body height 64 [in_i] 64 [in_i] [facility] ([facility]) 5'4" Body weight 149.00 [lb_av] 149.00 [lb_av] [facility] ([facility]) Systolic blood pressure 128 mm[Hg] 128 mm[Hg] [facility] ([facility]) Body mass index (BMI) [Ratio] 25.6 kg/m2 25.6 k g/m2 [facility] ([facility]) [place] body weight 120 [lb_av] 120 [lb_av] [facility] ([facility]) Body weight 67.586 kg 67.586 kg [facility] ([facility]) Body surface area Derived from formula 1.73 m2 1.73 m2 [facility] ([facility]) Systolic blood pressure 150 mm[Hg] 150 mm[Hg] [facility] ([facility]) Diastolic blood pressure 80 mm[Hg] 80 mm[Hg] [facility] ([facility]) Heart rate 84 /min 84 /min [facility] ([facility]) Respiratory rate 16 /min 16 /min [facility] ( [facility]) Systolic blood pressure 128 mm[Hg] 128 mm[Hg] [facility] Diastolic blood pressure 86 mm[Hg] 86 mm[Hg] [facility] Heart rate 84 /min 84 /min [facility] Respiratory rate 16 /min 16 /min [facility] Body height 162.6 cm 162.6 cm [facility] Body weight 67.586 kg 67.586 kg [facility] Body mass index (BMI) [Ratio] 25.58 kg/m2 25.58 kg/m2 [facility] Systolic blood pressure 156 mm[Hg] 156 mm[Hg] [facility] Diastolic blood pressure 96 mm[Hg] 96 mm[Hg] [facility] Heart rate 88 /min 88 /min [facility] Respiratory rate 16 /min 16 /min [facility] Body height 162.6 cm 162.6 cm [facility] Body weight 67.586 kg 67.586 kg [facility] Body mass index (BMI) [Ratio] 25.58 kg/m2 25.58 kg/m2 [facility] Body temperature 98.3 [degF] 98.3 [degF] eCW1 ( [facility]) Body weight 144 [lb_av] 144 [lb_av] eCW1 ([facility]) Body height 63 [in_i] 63 [in_i] eCW1 ([facility]) Body mass index (BMI) [Ratio] 25.51 kg/m2 25.51 kg/m2 eCW1 ([facility]) Heart rate 105 /min 105 /min eCW1 ([facility]) Respiratory rate 18 /min 18 /min eCW1 (Counts include 234 beds at the [facility]) Systolic blood pressure 160 mm[Hg] 160 mm[Hg] e CW1 ([facility]) Diastolic blood pressure 96 mm[Hg] 96 mm[Hg] eCW1 ([facility]) Body weight 144.8 [lb_av] 144.8 [lb_av] eCW1 ([facility] Body height 63 [in_i] 63 [in_i] eCW1 ([facility]) Body mass index (BMI) [Ratio] 25.65 kg/m2 25.65 kg/m2 eCW1 ([facility]) Systolic blood pressure 140 mm[Hg] 140 mm[Hg] e CW1 ([facility]) Diastolic blood pressure 80 mm[Hg] 80 mm[Hg] eCW1 ([facility]) Oxygen saturation in Arterial blood by Pulse oximetry 98 % 98 % [facility] ([facility]) Body temperature 97.7 [degF] 97.7 [degF] [facility] ([facility]) Body height 64 [in_i] 64 [in_i] [facility] ([facility]) 5'4" Body weight 149.00 [lb_av] 149.00 [lb_av] [facility] ([facility]) Body mass index (BMI) [Ratio] 25.6 kg/m2 25.6 k g/m2 [facility] ([facility]) [place] body weight 120 [lb_av] 120 [lb_av] [facility] ([facility]) Body weight 67.586 kg 67.586 kg [facility] ([facility]) Body surface area Derived from formula 1.73 m2 1.73 m2 [facility] ([facility]) Systolic blood pressure 122 mm[Hg] 122 mm[Hg] M [facility] ([facility]) Diastolic blood pressure 82 mm[Hg] 82 mm[Hg] [facility] Heart rate 76 /min 76 /min [facility] ([facility]) Oxygen saturation in Arterial blood by Pulse oximetry 98 % 98 % [facility] ([facility]) Body temperature 97.7 [degF] 97.7 [degF] [facility] ([facility]) Body height 64 [in_i] 64 [in_i] [facility] ([facility]) 5'4" Body weight 149.00 [lb_av] 149.00 [lb_av] [facility] ([facility]) Body mass index (BMI) [Ratio] 25.6 kg/m2 25.6 k g/m2 [facility]) [place] body weight 120 [lb_av] 120 [lb_av] [facility] ([facility]) Body weight 67.586 kg 67.586 kg [facility] ([facility]) Body surface area Derived from formula 1.73 m2 1.73 m2 [facility] ([facility]) Body weight 147.00 [lb_av] 147.00 [lb_av] [facility] ([facility]) Body height 64 [in_i] 64 [in_i] [facility] ([facility]) 5'4" Body mass index (BMI) [Ratio] 25.2 kg/m2 25.2 k g/m2 [facility] ([facility]) Systolic blood pressure--sitting 116 mm[Hg] 116 mm[Hg] [facility] ([facility]) Ra, medium cuff Diastolic blood pressure--sitting 70 mm[Hg] 70 mm[Hg] [facility] ([facility]) Ra, medium cuff Body weight 142 [lb_av] 142 [lb_av] eCW1 ([facility]) Body height 63 [in_i] 63 [in_i] eCW1 ([facility]) Body mass index (BMI) [Ratio] 25.15 kg/m2 25.15 kg/m2 eCW1 ([facility]) Heart rate 100 /min 100 /min eCW1 ([facility]) Respiratory rate 18 /min 18 /min eCW1 (Counts include 234 beds at the [facility]) Body temperature 98 [degF] 98 [degF] eCW1 (Counts include 234 beds at the [facility]) Systolic blood pressure 143 mm[Hg] 143 mm[Hg] e CW1 ([facility]) Diastolic blood pressure 82 mm[Hg] 82 mm[Hg] eCW1 ([facility]) Body height 64 [in_i] 64 [in_i] [facility] ([facility]) 5'4" Body weight 67.586 kg 67.586 kg [facility] ([facility]) Body surface area Derived from formula 1.73 m2 1.73 m2 [facility] ([facility]) Body height 64 [in_i] 64 [in_i] [facility] ([facility]) 5'4" Body weight 149.00 [lb_av] 149.00 [lb_av] [facility] ([facility]) Body mass index (BMI) [Ratio] 25.6 kg/m2 25.6 k g/m2 [facility] ([facility]) [place] body weight 120 [lb_av] 120 [lb_av] [facility] ([facility]) Body weight 67.586 kg 67.586 kg [facility] ([facility]) Body surface area Derived from formula 1.73 m2 1.73 m2 [facility] ([facility]) Systolic blood pressure 146 mm[Hg] 146 mm[Hg] [facility] ([facility]) Diastolic blood pressure 82 mm[Hg] 82 mm[Hg] [facility] ([facility]) Body weight 149.00 [lb_av] 149.00 [lb_av] [facility] ([facility]) Body mass index (BMI) [Ratio] 25.6 kg/m2 25.6 k g/m2 [facility] ([facility]) [place] body weight 120 [lb_av] 120 [lb_av] [facility] ([facility]) Oxygen saturation in Arterial blood by Pulse oximetry 97 % 97 % [facility] ([facility]) Diastolic blood pressure 84 mm[Hg] 84 mm[Hg] [facility] ([facility]) Systolic blood pressure 122 mm[Hg] 122 mm[Hg] [facility] Heart rate 106 /min 106 /min [facility] ([facility]) Body temperature 97.5 [degF] 97.5 [degF] [facility] ([facility]) [place] body weight 105 [lb_av] 105 [lb_av] [facility] ([facility]) Body weight 66.226 kg 66.226 kg [facility] ([facility]) Body surface area Derived from formula 1.66 m2 1.66 m2 [facility] ([facility]) Body height 61.5 [in_i] 61.5 [in_i] [facility] ([facility]) 5'1.50" Body weight 146.00 [lb_av] 146.00 [lb_av] [facility] ([facility]) Body mass index (BMI) [Ratio] 27.1 kg/m2 27.1 k g/m2 [facility] ([facility]) Systolic blood pressure--sitting 132 mm[Hg] 132 mm[Hg] [facility] ([facility]) Ra, medium cuff Diastolic blood pressure--sitting 82 mm[Hg] 82 mm[Hg] [facility] ([facility]) Ra, medium cuff Body weight 144.00 [lb_av] 144.00 [lb_av] [facility] ([facility]) Heart rate 97 /min 97 /min [facility] ([facility]) Body height 64 [in_i] 64 [in_i] [facility] ([facility]) 5'4" Body mass index (BMI) [Ratio] 24.7 kg/m2 24.7 k g/m2 [facility] ([facility]) Systolic blood pressure 140 mm[Hg] 140 mm[Hg] M [facility] ([facility], [facility]) Diastolic blood pressure 87 mm[Hg] 87 mm[Hg] [facility] ([facility], [facility]) Heart rate 102 /min 102 /min [facility] ([facility], [facility]) Respiratory rate 14 /min 14 /min [facility] ( [facility], [facility]) Oxygen saturation in Arterial blood by Pulse oximetry 97 % 97 % [facility] ([facility], [facility]) Body temperature 98.7 [degF] 98.7 [degF] [facility] ([facility], [facility]) Body weight 140.00 [lb_av] 140.00 [lb_av] [facility] T ([facility], [facility]) Body height 64 [in_i] 64 [in_i] [facility] ([facility], [facility]) 5'4" Body mass index (BMI) [Ratio] 24.0 kg/m2 24.0 k g/m2 [facility] ([facility]) Body weight 144 [lb_av] 144 [lb_av] eCW1 ([facility]) Body weight 65.32 kg 65.32 kg eCW1 ([facility]) Body height 63 [in_i] 63 [in_i] eCW1 ([facility]) Body mass index (BMI) [Ratio] 25.51 kg/m2 25.51 kg/m2 eCW1 ([facility]) Systolic blood pressure 124 mm[Hg] 124 mm[Hg] e CW1 ([facility]) Diastolic blood pressure 77 mm[Hg] 77 mm[Hg] eCW1 ([facility]) Body temperature 96.9 [degF] 96.9 [degF] [facility] ([facility]) Body weight 141 [lb_av] 141 [lb_av] eCW1 ([facility]) Body height 63 [in_i] 63 [in_i] eCW1 ([facility]) Body mass index (BMI) [Ratio] 24.97 kg/m2 24.97 kg/m2 eCW1 ([facility]) Heart rate 94 /min 94 /min eCW1 ([facility]) Respiratory rate 18 /min 18 /min eCW1 (Counts include 234 beds at the [facility]) Body temperature 98.4 [degF] 98.4 [degF] eCW1 ( [facility]) Systolic blood pressure 137 mm[Hg] 137 mm[Hg] e CW1 ([facility]) Diastolic blood pressure 79 mm[Hg] 79 mm[Hg] eCW1 ([facility]) Body weight 144 [lb_av] 144 [lb_av] eCW1 ([facility]) Respiratory rate 18 /min 18 /min eCW1 (Counts include 234 beds at the [facility]) Body temperature 98 [degF] 98 [degF] eCW1 (Counts include 234 beds at the [facility]) Systolic blood pressure 170 mm[Hg] 170 mm[Hg] e CW1 ([facility]) Diastolic blood pressure 90 mm[Hg] 90 mm[Hg] eCW1 ([facility]) Body height 63 [in_i] 63 [in_i] eCW1 ([facility]) Body mass index (BMI) [Ratio] 25.51 kg/m2 25.51 kg/m2 eCW1 ([facility]) Heart rate 107 /min 107 /min eCW1 ([facility]) Oxygen saturation in Arterial blood by Pulse oximetry 98 % 98 % [facility], ) Systolic blood pressure 130 mm[Hg] 130 mm[Hg] M [facility] ([facility]) Diastolic blood pressure 80 mm[Hg] 80 mm[Hg] [facility] ([facility]) Heart rate 107 /min 107 /min [facility] ([facility]) Body temperature 97.0 [degF] 97.0 [degF] [facility] ([facility]) Body height 61.5 [in_i] 61.5 [in_i] [facility] 5'1.50" Body weight 145.00 [lb_av] 145.00 [lb_av] [facility] T ([facility]) Body mass index (BMI) [Ratio] 27.0 kg/m2 27.0 k g/m2 [facility] ([facility]) [place] body weight 105 [lb_av] 105 [lb_av] [facility] T ([facility]) Body weight 65.772 kg 65.772 kg [facility] ([facility]) Body surface area Derived from formula 1.66 m2 1.66 m2 [facility] ([facility]) Patient Treatment Plan of Care Planned Activity Planned Date Details Description Data Source (s) Levothyroxine Sodium 0.075 MG Oral Tablet 12/07/2020 12:00:00 AM ED T [facility] Levothyroxine Sodium 0.05 MG Oral Tablet 12/07/2020 12:00:00 AM EDT [facility] Hydroxychloroquine Sulfate 200 MG Oral Tablet 12/03/2020 12:00:00 A M EDT [facility] Sucralfate 100 MG/ML Oral Suspension 12/03/2020 12:00:00 AM EDT [facility] Metformin hydrochloride 500 MG Oral Tablet 11/03/2020 12:00:00 AM E DT [facility] Nebulizer/Tubing/Mouthpiece 10/22/2020 12:00:00 AM EDT eCW1 ([facility]) Azithromycin 500 MG Oral Tablet 10/22/2020 12:00:00 AM EDT eCW1 ([facility]) Diclofenac Sodium 0.01 MG/MG Topical Gel [Voltaren] 10/23/19 12:00:00 AM EDT eCW1 ([facility]) Verapamil hydrochloride 120 MG Extended Release Oral T ablet 10/22/2020 12:00:00 AM EDT eCW1 ([facility]) Verapamil hydrochloride 120 MG Extended Release Oral T ablet 10/22/2020 12:00:00 AM EDT eCW1 ([facility]) Nebulizer/Tubing/Mouthpiece 10/22/2020 12:00:00 AM EDT eCW1 ([facility]) Azithromycin 500 MG Oral Tablet 10/22/2020 12:00:00 AM EDT eCW1 ([facility]) Diclofenac Sodium 0.01 MG/MG Topical Gel [Voltaren] 10/23/19 12:00:00 AM EDT eCW1 ([facility]) Verapamil hydrochloride 120 MG Extended Release Oral T ablet 10/22/2020 12:00:00 AM EDT eCW1 ([facility]) Nebulizer/Tubing/Mouthpiece 10/22/2020 12:00:00 AM EDT eCW1 ([facility]) Azithromycin 500 MG Oral Tablet 10/22/2020 12:00:00 AM EDT eCW1 ([facility]) Diclofenac Sodium 0.01 MG/MG Topical Gel [Voltaren] 10/23/19 12:00:00 AM EDT eCW1 ([facility]) Albuterol 0.83 MG/ML Inhalant Solution 10/20/2020 12:00:00 AM EDT [facility] montelukast 10 MG Oral Tablet 09/06/2020 12:00:00 AM EDT [facility] Lidocaine Hydrochloride 40 MG/ML Mucous Membrane Topic al Solution 08/26/2020 12:00:00 AM EDT eCW1 ([facility]) Fluconazole 100 MG Oral Tablet 06/22/2020 12:00:00 AM EDT eCW1 ([facility]) Fluconazole 100 MG Oral Tablet 06/22/2020 12:00:00 AM EDT eCW1 ([facility]) Fluconazole 100 MG Oral Tablet 06/22/2020 12:00:00 AM EDT eCW1 ([facility]) Fluconazole 100 MG Oral Tablet 06/22/2020 12:00:00 AM EDT eCW1 ([facility]) Fluconazole 150 MG Oral Tablet [Diflucan] 03/15/2020 12:00:00 AM ES T eCW1 ([facility]) Ciprofloxacin 500 MG Oral Tablet [Cipro] 03/15/2020 12:00:00 AM EST eCW1 ([facility]) Fluconazole 150 MG Oral Tablet [Diflucan] 03/15/2020 12:00:00 AM ES T eCW1 ([facility]) Ciprofloxacin 500 MG Oral Tablet [Cipro] 03/15/2020 12:00:00 AM EST eCW1 ([facility]) Fluconazole 150 MG Oral Tablet [Diflucan] 03/15/2020 12:00:00 AM ES T eCW1 ([facility]) Ciprofloxacin 500 MG Oral Tablet [Cipro] 03/15/2020 12:00:00 AM EST eCW1 ([facility]) Fluconazole 150 MG Oral Tablet [Diflucan] 03/15/2020 12:00:00 AM ES T eCW1 ([facility]) Ciprofloxacin 500 MG Oral Tablet [Cipro] 03/15/2020 12:00:00 AM EST eCW1 ([facility]) Ciprofloxacin 250 MG Oral Tablet 03/05/2020 12:00:00 AM EST eCW1 ([facility]) Fluconazole 150 MG Oral Tablet 03/05/2020 12:00:00 AM EST eCW1 ([facility]) Ciprofloxacin 250 MG Oral Tablet 03/05/2020 12:00:00 AM EST eCW1 ([facility]) Fluconazole 150 MG Oral Tablet 03/05/2020 12:00:00 AM EST eCW1 ([facility]) Cyclosporine 0.5 MG/ML Ophthalmic Suspension [Restasis ] 02/23/2020 12:00:00 AM EST [facility] (Scott Holley MD [facility]) Cyclosporine 0.5 MG/ML Ophthalmic Suspension [Restasis ] 09/09/2018 12:00:00 AM EDT [facility] (Scott Holley MD [facility]) Sucralfate 1000 MG Oral Tablet [facility]
[2021-02-10] MEDS ORDERED: ALBUTEROL 90 MCG/ACT 8GM HFA INHALER INH ONE (13:15)
[2021-02-10] MEDS ORDERED: ACETAMINOPHEN 500 MG TAB PO ONE (13:15)
--- NOTE | 2021-02-10 13:40 | REP ---
INDICATION: Coronavirus workup COMPARISON: 11/17/2020 TECHNIQUE: Portable AP view of the chest FINDINGS: The mediastinum and cardiac silhouette are stable and within normal limits for portable technique. The lung nice are clear without acute consolidation, effusion, or pneumothorax. Skeletal structures are intact. IMPRESSION: No acute cardiopulmonary process appreciated. <Electronically signed by Ruslan Alves > 02/10/21 [id number]
[2021-02-10] MEDS ORDERED: NS 1,000 ML IV ONE (13:45)
[2021-02-10] MEDS ORDERED: METOCLOPRAMIDE INJ 10MG/2ML VIAL (J2765 PER 1) IV ONE (13:45)
[2021-02-10 13:51] LABS: BASO # 0.1 10^3/uL (0.0-0.2); BASO % 0.4 % (0.0-1.0); EOS % 0.1 % (0.0-3.0); HEMATOCRIT 40.5 % (36.0-47.0); HEMOGLOBIN 13.2 g/dl (12.0-15.5); LYMPH # 1.4 10^3/uL (1.5-5.0); LYMPH % 8.2 % (24.0-44.0); MEAN CORPUSCULAR HEMOGLOBIN 29.4 pg (27.0-33.0); MEAN CORPUSCULAR HGB CONC 32.6 g/dl (32.0-36.5); MEAN CORPUSCULAR VOLUME 90.2 fl (80.0-96.0); MONO # 0.9 10^3/uL (0.0-0.8); MONO % 5.6 % (2.0-8.0); NEUTROPHILS # 14.1 10^3/uL (1.5-8.5); NEUTROPHILS % 85.3 % (36.0-66.0); PLATELET COUNT, AUTOMATED 250 10^3/uL (150-450); RED BLOOD COUNT 4.49 10^6/uL (4.00-5.40); WHITE BLOOD COUNT 16.6 10^3/uL (4.0-10.0)
[2021-02-10 14:25] LABS: ALT/SGPT 43 U/L (12-78); BILIRUBIN,TOTAL 0.6 MG/DL (0.2-1.0); BLOOD UREA NITROGEN 10 MG/DL (7-18); CALCIUM LEVEL 9.3 MG/DL (8.5-10.1); CARBON DIOXIDE LEVEL 27 MEQ/L (21-32); CHLORIDE LEVEL 103 MEQ/L (98-107); CREATININE FOR GFR 0.62 MG/DL (0.55-1.30); GLOMERULAR FILTRATION RATE > 60.0 (>51); GLUCOSE, FASTING 123 MG/DL (70-100); POTASSIUM SERUM 4.1 MEQ/L (3.5-5.1); SODIUM LEVEL 136 MEQ/L (136-145); TOTAL PROTEIN 7.1 GM/DL (6.4-8.2)
[2021-02-10 14:26] LABS: CK-MB VALUE MASS 1.2 NG/ML (<3.6); CPK CREATINE PHOSPHOKINASE 131 U/L (26-192); MB/CK RELATIVE INDEX 0.92 (< OR =4); TROPONIN I < 0.02 NG/ML (< 0.10)
[2021-02-10 15:38] VITALS: BP 161/73
--- NOTE | 2021-02-12 07:58 | ECGEPIP ---
[facility] - ED Test Date: 2021-02-10 Pat Name: ELHAM VERAS Department: Room: - Gender: Female [employer]er: : [id number] Requested By: ARLENE Ellison PA-C Order Number: [id number] Reading MD: Sharon Hand Measurements Intervals [place] Rate: 98 P: 63 ND: 144 QRS: 34 QRSD: 76 T: 44 QT: 366 QTc: 467 Interpretive Statements Normal sinus rhythm prolonged qtc Nonspecific ST abnormality decreased rate 05/05/20 Electronically Signed on 02-12-2021 7:57:55 EST by Sharon Hand
== END 2021-02-10 16:32 | disposition home or self-care (01) ==
LOC: M ED 09:34
DX: J45.901 Unspecified asthma with (acute) exacerbation (principal); J44.9 Chronic obstructive pulmonary disease, unspecified; J00 Acute nasopharyngitis [common cold]; B34.2 Coronavirus infection, unspecified; E11.9 Type 2 diabetes mellitus without complications; K21.9 Gastro-esophageal reflux disease without esophagitis; F41.9 Anxiety disorder, unspecified; E03.9 Hypothyroidism, unspecified; Q87.19 Other congenital malformation syndromes predominantly associated with short stature; Z79.899 Other long term (current) drug therapy; Z79.890 Hormone replacement therapy; Z88.0 Allergy status to penicillin; Z88.1 Allergy status to other antibiotic agents; Z88.2 Allergy status to sulfonamides; Z88.8 Allergy status to other drugs, medicaments and biological substances; Z87.891 Personal history of nicotine dependence
CPT/HCPCS: 71045; 80053; 82550; 82553; 83605; 84484; 85025; 85379; 87798; 93005; 94640; 96374; 99284; J2765

== ENCOUNTER → 2021-03-01 | Outpatient (CLI) | payer MEDICARE, OTHER ==
--- NOTE | 2021-03-01 14:06 | REP ---
INDICATION: PRECANCEROUS SKIN LESION, EVAL FOR ENLARGED NODES RT AXILLA. COMPARISON: None. TECHNIQUE: Multiple ultrasound images of the lower neck and right axilla were performed. FINDINGS: There are morphologically normal right axillary lymph nodes identified. IMPRESSION: Morphologically normal right axillary lymph nodes. No abnormal cystic or solid masses are identified. <Electronically signed by Sean Harmon > 03/01/21 [id number]
--- NOTE | 2021-03-01 15:07 | REP ---
INDICATION: PRECANCEROUS SKIN LESION, EVAL FOR ENLARGED NODES IN NECK. COMPARISON: None. TECHNIQUE: Real-time sonographic evaluation of soft tissues neck performed bilaterally, as well as the left shoulder soft tissues in the region of swelling. FINDINGS: In the right neck soft tissues 2 morphologically normal appearing nonenlarged lymph nodes are present, both demonstrating fatty venice. These measure 8 x 4 x 4 mm and 8 x 5 x 5 mm. No adenopathy is seen in the left neck soft tissues. In the left shoulder/supraclavicular region there is a hyperechoic nodule which could represent a lipoma 9 x 4 x 7 mm. IMPRESSION: No evidence of lymphadenopathy in the soft tissues of the neck. At the site of the palpable lump in the left shoulder soft tissues a hyperechoic nodule may represent a small lipoma measuring 9 x 4 x 7 mm. <Electronically signed by Nilson Lee > 03/01/21 [id number]
== END ==
LOC: M RAD 13:01
PROVIDERS: ATTEND Nurse Practitioner Family
DX: L57.0 Actinic keratosis (principal)

== ENCOUNTER → 2021-04-14 | Outpatient (CLI) | payer MEDICARE, OTHER ==
[~2021-04-14] MED LIST changes: -MONT10TA10 PO; +MONT10TA97 PO
== END ==
LOC: M CLY 14:29
PROVIDERS: ATTEND Family Medicine
DX: R05.9 Cough, unspecified (principal); U07.1 COVID-19

== ENCOUNTER → 2021-05-18 | Outpatient (CLI) | payer MEDICARE, OTHER ==
[~2021-05-18] MED LIST changes: +AZEL1SPR3; +ONE-1TAB PO; +PANT20TA6 PO; +PRAV10TA4 PO; +PROB250C PO; +VITA500C3 PO
== END ==
LOC: M LABSMTC 10:14
PROVIDERS: ATTEND Anesthesiology
DX: Z01.818 Encounter for other preprocedural examination (principal); Z11.52 Encounter for screening for COVID-19

== ENCOUNTER 2021-05-23 09:04 | Day surgery (SDC) | payer MEDICARE, OTHER ==
[~2021-05-23] VITALS: Ht 162.6 cm; Wt 69.4 kg
[~2021-05-23 09:04] MED LIST changes: +LIDOCAINE 2% 100MG/5ML SDV (FOR ANES.) As Ordered ONE; +NS 1,000 ML IV ONE; +propofoL 200 MG/20 ML VIAL As Ordered ONE
[2021-05-23 11:24] VITALS: BP 135/65
== END 2021-05-23 14:36 | disposition home or self-care (01) ==
LOC: M OPP 09:04
PROVIDERS: ATTEND Internal Medicine Gastroenterology
DX: K29.70 Gastritis, unspecified, without bleeding (principal); K31.7 Polyp of stomach and duodenum; R13.10 Dysphagia, unspecified; M35.00 Sjogren syndrome, unspecified; Z79.84 Long term (current) use of oral hypoglycemic drugs; Z79.899 Other long term (current) drug therapy; Z88.0 Allergy status to penicillin; Z88.2 Allergy status to sulfonamides; Z88.8 Allergy status to other drugs, medicaments and biological substances; Z87.891 Personal history of nicotine dependence

== ENCOUNTER → 2021-12-28 | Outpatient (CLI) | payer MEDICARE, OTHER ==
[~2021-12-28] MED LIST changes: -LIDOCAINE 2% 100MG/5ML SDV (FOR ANES.) As Ordered ONE; -NS 1,000 ML IV ONE; -propofoL 200 MG/20 ML VIAL As Ordered ONE
== END ==
LOC: M WHC 09:04
PROVIDERS: ATTEND Nurse Practitioner Family
DX: Z12.31 Encounter for screening mammogram for malignant neoplasm of breast (principal)

== ENCOUNTER → 2022-01-10 | Outpatient (REF) | payer MEDICARE, OTHER | LOC: M SFHCCLAY 15:05 | PROVIDERS: ATTEND Physician Assistant | DX: R30.0 Dysuria (principal) ==

== ENCOUNTER → 2022-01-17 | Outpatient (REF) | payer MEDICARE, OTHER ==
[2022-01-17 15:48] LABS: APPEARANCE, URINE MANUAL CLEAR (CLEAR); BILIRUBIN, URINE MANUAL NEGATIVE (NEGATIVE); BLOOD URINE MANUAL NEGATIVE (NEGATIVE); COLOR, URINE MANUAL YELLOW (YELLOW); GLUCOSE, URINE (UA) MANUAL NEGATIVE (NEGATIVE); KETONE, URINE MANUAL NEGATIVE (NEGATIVE); LEUKOCYTE ESTERASE, URINE MAN NEGATIVE (NEGATIVE); NITRITE, URINE MANUAL NEGATIVE (NEGATIVE); PROTEIN, URINE MANUAL NEGATIVE (NEGATIVE); UROBILINOGEN, URINE MANUAL NORMAL (NORMAL)
== END ==
LOC: M SMT 15:18
PROVIDERS: ATTEND Nurse Practitioner Women's Health
DX: R30.0 Dysuria (principal)

== ENCOUNTER → 2022-01-30 | Outpatient (REF) | payer MEDICARE, OTHER | LOC: M SMT 13:02 | PROVIDERS: ATTEND Urology | DX: R30.0 Dysuria (principal) ==

== ENCOUNTER → 2022-01-31 | Outpatient (CLI) | payer MEDICARE, OTHER | LOC: M PLAIMG 10:05 | PROVIDERS: ATTEND Nurse Practitioner Adult Health | DX: J45.41 Moderate persistent asthma with (acute) exacerbation (principal) ==

== ENCOUNTER → 2022-02-06 | Outpatient (REF) | payer MEDICARE, OTHER ==
[2022-02-06 12:57] LABS: BASO # 0.1 10^3/uL (0.0-0.2); BASO % 1.1 % (0.0-1.0); EOS # 0.3 10^3/uL (0.0-0.5); EOS % 4.5 % (0.0-3.0); HEMATOCRIT 38.5 % (36.0-47.0); HEMOGLOBIN 12.4 g/dl (12.0-15.5); LYMPH # 2.5 10^3/uL (1.5-5.0); LYMPH % 33.5 % (24.0-44.0); MEAN CORPUSCULAR HGB CONC 32.2 g/dl (32.0-36.5); MONO # 0.7 10^3/uL (0.0-0.8); MONO % 9.1 % (2.0-8.0); NEUTROPHILS # 3.8 10^3/uL (1.5-8.5); NEUTROPHILS % 51.4 % (36.0-66.0); PLATELET COUNT, AUTOMATED 314 10^3/uL (150-450); RED BLOOD COUNT 4.14 10^6/uL (4.00-5.40); WHITE BLOOD COUNT 7.4 10^3/uL (4.0-10.0)
[2022-02-06 13:53] LABS: ALBUMIN 4.1 GM/DL (3.2-5.2); ALT/SGPT 38 U/L (12-78); BILIRUBIN,TOTAL 0.4 MG/DL (0.2-1.0); BLOOD UREA NITROGEN 7 MG/DL (7-18); CALCIUM LEVEL 9.5 MG/DL (8.5-10.1); CARBON DIOXIDE LEVEL 29 MEQ/L (21-32); CHLORIDE LEVEL 106 MEQ/L (98-107); CHOLESTEROL LEVEL 168 MG/DL (<200); CHOLESTEROL RISK RATIO 3.054 (<5); CREATININE FOR GFR 0.72 MG/DL (0.55-1.30); GLOMERULAR FILTRATION RATE > 60.0 (>51); GLUCOSE, FASTING 119 MG/DL (70-100); HDL CHOLESTEROL 55 MG/DL (>40); LDL CHOLESTEROL 85 MG/DL (<100); MAGNESIUM LEVEL 2.2 MG/DL (1.8-2.4); NON-HDL-C 113 MG/DL; POTASSIUM SERUM 4.4 MEQ/L (3.5-5.1); SODIUM LEVEL 138 MEQ/L (136-145); TOTAL PROTEIN 6.9 GM/DL (6.4-8.2); TRIGLYCERIDES LEVEL 142 MG/DL (<150)
[2022-02-06 14:30] LABS: TOTAL 25(OH) VITAMIN D 29.2 NG/ML (30.0-100.0)
[2022-02-06 14:31] LABS: FOLATE > 24.0 NG/ML; VITAMIN B12 LEVEL 469 PG/ML
[2022-02-06 14:40] LABS: HEMOGLOBIN A1c 5.5 %
== END ==
LOC: M SFHCCLAY 07:12
PROVIDERS: ATTEND Physician Assistant
DX: R73.01 Impaired fasting glucose (principal); E55.9 Vitamin D deficiency, unspecified; Z79.899 Other long term (current) drug therapy

== ENCOUNTER 2022-05-05 03:45 | Emergency (ER) | payer MEDICARE, OTHER ==
[~2022-05-05] VITALS: Ht 162.6 cm; Wt 67.6 kg
[2022-05-05 04:35] LABS: BASO # 0.1 10^3/uL (0.0-0.2); EOS # 0.2 10^3/uL (0.0-0.5); EOS % 2.5 % (0.0-3.0); HEMATOCRIT 40.1 % (36.0-47.0); HEMOGLOBIN 12.9 g/dl (12.0-15.5); LYMPH # 2.4 10^3/uL (1.5-5.0); LYMPH % 30.1 % (24.0-44.0); MEAN CORPUSCULAR HEMOGLOBIN 29.2 pg (27.0-33.0); MEAN CORPUSCULAR HGB CONC 32.2 g/dl (32.0-36.5); MEAN CORPUSCULAR VOLUME 90.7 fl (80.0-96.0); MONO # 0.7 10^3/uL (0.0-0.8); NEUTROPHILS # 4.6 10^3/uL (1.5-8.5); NEUTROPHILS % 56.8 % (36.0-66.0); PLATELET COUNT, AUTOMATED 337 10^3/uL (150-450); RED BLOOD COUNT 4.42 10^6/uL (4.00-5.40); WHITE BLOOD COUNT 8.1 10^3/uL (4.0-10.0)
[2022-05-05 04:57] LABS: LIPASE 33 U/L (12-53)
[2022-05-05 04:58] LABS: CK-MB VALUE MASS < 1.0 NG/ML (<3.6)
[2022-05-05 04:59] LABS: BLOOD UREA NITROGEN 10 MG/DL (9-23); CALCIUM LEVEL 9.5 MG/DL (8.5-10.1); CARBON DIOXIDE LEVEL 28 MMOL/L (20-31); CHLORIDE LEVEL 105 MMOL/L (98-107); CPK CREATINE PHOSPHOKINASE 146 U/L (34-145); CREATININE FOR GFR 0.68 MG/DL (0.55-1.30); GLOMERULAR FILTRATION RATE > 60.0 (>51); GLUCOSE, FASTING 151 MG/DL (60-100); MB/CK RELATIVE INDEX 0.68 (< OR =4); POTASSIUM SERUM 3.7 MMOL/L (3.5-5.1); SODIUM LEVEL 139 MMOL/L (136-145)
[2022-05-05] MEDS ORDERED: PANTOPRAZOLE 40MG VIAL IV ONE (08:40)
[2022-05-05] MEDS ORDERED: GI COCKTAIL 50ML BTL(HYOSCYAMINE/MAALOX/LIDOCAINE VISCOUS)(1:3:1) PO ONE (08:40)
[2022-05-05] MEDS ORDERED: ISOVUE-370 76% 100ML VIAL As Ordered ONE (09:23)
[2022-05-05 09:30] LABS: ALBUMIN 4.4 G/DL (3.2-5.2); BILIRUBIN,DIRECT 0.2 MG/DL (<0.4); BILIRUBIN,TOTAL 0.6 MG/DL (0.3-1.2); CK-MB VALUE MASS < 1.0 NG/ML (<3.6)
[2022-05-05 09:31] LABS: CPK CREATINE PHOSPHOKINASE 129 U/L (34-145); MB/CK RELATIVE INDEX 0.77 (< OR =4)
[2022-05-05 10:39] VITALS: BP 158/98
[2022-05-05] MEDS ORDERED: amLODIPine 5 MG TAB PO ONE (11:00)
[2022-05-05] MEDS ORDERED: AMLO25TA PO (11:07)
== END 2022-05-05 11:33 | disposition home or self-care (01) ==
LOC: M ED 03:45
DX: R07.9 Chest pain, unspecified (principal); I10 Essential (primary) hypertension; R00.0 Tachycardia, unspecified; R06.02 Shortness of breath; K58.9 Irritable bowel syndrome, unspecified; E78.5 Hyperlipidemia, unspecified; J45.909 Unspecified asthma, uncomplicated; M35.00 Sjogren syndrome, unspecified; N32.81 Overactive bladder; Z90.710 Acquired absence of both cervix and uterus; Z88.0 Allergy status to penicillin; Z88.2 Allergy status to sulfonamides; Z87.891 Personal history of nicotine dependence; Z79.890 Hormone replacement therapy; Z79.899 Other long term (current) drug therapy; Z79.51 Long term (current) use of inhaled steroids
CPT/HCPCS: 71275; 74177; 80048; 80076; 82550; 82553; 83690; 84484; 85025; 93005; 93041; 94760; 96374; 99285; C9113; Q9967

== ENCOUNTER → 2022-05-22 | Outpatient (CLI) | payer MEDICARE, OTHER ==
[~2022-05-22] MED LIST changes: +AMLO25TA PO; +METO1TAB32 PO
== END ==
LOC: M LABSMTC 09:32
PROVIDERS: ATTEND Anesthesiology
DX: Z01.812 Encounter for preprocedural laboratory examination (principal)

== ENCOUNTER 2022-05-26 08:14 | Day surgery (SDC) | payer MEDICARE, OTHER ==
[~2022-05-26] VITALS: Ht 162.6 cm; Wt 66.9 kg
[~2022-05-26 08:14] MED LIST changes: +MONT-5 PO; +NS 1,000 ML IV ONE; -SING10TA32 PO
[2022-05-26] MEDS ORDERED: LIDOCAINE 2% 100MG/5ML SDV (FOR ANES.) As Ordered ONE (10:32)
[2022-05-26] MEDS ORDERED: propofoL 200 MG/20 ML VIAL As Ordered ONE ×2 (10:32→10:56)
[2022-05-26 12:06] VITALS: BP 150/78
== END 2022-05-26 12:20 | disposition home or self-care (01) ==
LOC: M OPP 08:14
PROVIDERS: ATTEND Internal Medicine Gastroenterology
DX: Z12.11 Encounter for screening for malignant neoplasm of colon (principal); D12.4 Benign neoplasm of descending colon; K64.8 Other hemorrhoids; R05.3 Chronic cough; I10 Essential (primary) hypertension; E78.5 Hyperlipidemia, unspecified; E11.9 Type 2 diabetes mellitus without complications; E03.9 Hypothyroidism, unspecified; K76.0 Fatty (change of) liver, not elsewhere classified; K21.9 Gastro-esophageal reflux disease without esophagitis; M19.90 Unspecified osteoarthritis, unspecified site; J45.909 Unspecified asthma, uncomplicated; M35.00 Sjogren syndrome, unspecified; Z88.0 Allergy status to penicillin; Z88.2 Allergy status to sulfonamides; Z79.84 Long term (current) use of oral hypoglycemic drugs; Z79.890 Hormone replacement therapy; Z79.899 Other long term (current) drug therapy; Z80.1 Family history of malignant neoplasm of trachea, bronchus and lung; Z80.3 Family history of malignant neoplasm of breast

== ENCOUNTER → 2022-08-18 | Outpatient (REF) | payer MEDICARE, OTHER ==
[~2022-08-18] MED LIST changes: -NS 1,000 ML IV ONE
[2022-08-18 11:51] LABS: BASO # 0.1 10^3/uL (0.0-0.2); BASO % 0.4 % (0.0-1.0); EOS % 0.1 % (0.0-3.0); HEMATOCRIT 40.1 % (36.0-47.0); HEMOGLOBIN 12.6 g/dl (12.0-15.5); LYMPH # 2.2 10^3/uL (1.5-5.0); LYMPH % 16.2 % (24.0-44.0); MEAN CORPUSCULAR HEMOGLOBIN 28.9 pg (27.0-33.0); MEAN CORPUSCULAR HGB CONC 31.4 g/dl (32.0-36.5); MONO # 1.1 10^3/uL (0.0-0.8); MONO % 7.8 % (2.0-8.0); NEUTROPHILS % 73.3 % (36.0-66.0); PLATELET COUNT, AUTOMATED 354 10^3/uL (150-450); RED BLOOD COUNT 4.36 10^6/uL (4.00-5.40); WHITE BLOOD COUNT 13.7 10^3/uL (4.0-10.0)
[2022-08-18 12:01] LABS: THYROID STIMULATING HORMONE 0.768 uIU/ML (0.55-4.78); TOTAL 25(OH) VITAMIN D 34.4 NG/ML (20.0-100.0)
[2022-08-18 12:02] LABS: FREE T4 1.53 NG/DL (0.89-1.76)
[2022-08-18 12:05] LABS: ALBUMIN 4.1 G/DL (3.2-5.2); ALKALINE PHOSPHATASE 88 U/L (46-116); ALT/SGPT 27 U/L (7.0-40); AST/SGOT 11 U/L (<34); BILIRUBIN,TOTAL 0.4 MG/DL (0.3-1.2); BLOOD UREA NITROGEN 13 MG/DL (9-23); CALCIUM LEVEL 9.1 MG/DL (8.5-10.1); CARBON DIOXIDE LEVEL 30 MMOL/L (20-31); CHLORIDE LEVEL 104 MMOL/L (98-107); CHOLESTEROL LEVEL 146 MG/DL (<200); CHOLESTEROL RISK RATIO 2.37 (<5); CREATININE FOR GFR 0.55 MG/DL (0.55-1.30); GLOMERULAR FILTRATION RATE > 60.0 (>51); GLUCOSE, FASTING 115 MG/DL (60-100); HDL CHOLESTEROL 61.4 MG/DL (>40); LDL CHOLESTEROL 63.6 MG/DL (<100); NON-HDL-C 84.6 MG/DL; POTASSIUM SERUM 4.3 MMOL/L (3.5-5.1); SODIUM LEVEL 142 MMOL/L (136-145); TOTAL PROTEIN 6.5 G/DL (5.7-8.2); TRIGLYCERIDES LEVEL 105 MG/DL (<150)
[2022-08-18 12:54] LABS: HEMOGLOBIN A1c 6.3 % (4.0-6.0)
== END ==
LOC: M SFHCCLAY 07:05
PROVIDERS: ATTEND Physician Assistant
DX: E03.9 Hypothyroidism, unspecified (principal); E55.9 Vitamin D deficiency, unspecified

== ENCOUNTER → 2022-10-04 | Outpatient (CLI) | payer MEDICARE, OTHER ==
[~2022-10-04] MED LIST changes: +E-Z-GAS II EFFERVESCENT PACKET (SODIUM BICARB./CITRIC ACID/SIMETHICONE) As Ordered ONE; +E-Z-HD 98% w/w 340GM SUSP BTL As Ordered ONE; +E-Z-PAQUE 96% w/w SUSP 176GM BTL As Ordered ONE; -FLUT11IN INH; +FLUT12AE6 INH; -HYDR200T3 PO; +HYDR200T46 PO
== END ==
LOC: M RAD 08:07
PROVIDERS: ATTEND Surgery
DX: K44.9 Diaphragmatic hernia without obstruction or gangrene (principal); K21.9 Gastro-esophageal reflux disease without esophagitis

== ENCOUNTER → 2022-11-16 | Outpatient (REF) | payer MEDICARE, OTHER ==
[~2022-11-16] MED LIST changes: -E-Z-GAS II EFFERVESCENT PACKET (SODIUM BICARB./CITRIC ACID/SIMETHICONE) As Ordered ONE; -E-Z-HD 98% w/w 340GM SUSP BTL As Ordered ONE; -E-Z-PAQUE 96% w/w SUSP 176GM BTL As Ordered ONE
[2022-11-16 17:54] LABS: APPEARANCE, URINE CLEAR (CLEAR); BACTERIA, URINE AUTO NEGATIVE (NEGATIVE); BILIRUBIN, URINE AUTO NEGATIVE (NEGATIVE); BLOOD, URINE BLOOD NEGATIVE (NEGATIVE); COLOR, URINE YELLOW (YELLOW); GLUCOSE, URINE (UA) AUTO NEGATIVE (NEGATIVE); KETONE, URINE AUTO NEGATIVE (NEGATIVE); LEUKOCYTE ESTERASE, URINE AUTO NEGATIVE (NEGATIVE); NITRITE, URINE AUTO NEGATIVE (NEGATIVE); PROTEIN, URINE AUTO NEGATIVE (NEGATIVE); RBC, URINE AUTO 1 /HPF (0-3); SPECIFIC GRAVITY URINE AUTO 1.015 (1.002-1.035); SQUAMOUS EPITHELIAL CELL UR AU 0 /HPF (0-6); UROBILINOGEN, URINE AUTO 0.2 mg/dL (0.0-2.0); WBC, URINE AUTO 0 /HPF (0-3)
[2022-11-16 18:05] LABS: BASO # 0.1 10^3/uL (0.0-0.2); BASO % 1.2 % (0.0-1.0); EOS # 0.4 10^3/uL (0.0-0.5); HEMATOCRIT 40.1 % (36.0-47.0); HEMOGLOBIN 12.8 g/dl (12.0-15.5); LYMPH # 2.1 10^3/uL (1.5-5.0); LYMPH % 30.5 % (24.0-44.0); MEAN CORPUSCULAR HEMOGLOBIN 28.9 pg (27.0-33.0); MEAN CORPUSCULAR HGB CONC 31.9 g/dl (32.0-36.5); MEAN CORPUSCULAR VOLUME 90.5 fl (80.0-96.0); MONO # 0.6 10^3/uL (0.0-0.8); MONO % 9.4 % (2.0-8.0); NEUTROPHILS # 3.6 10^3/uL (1.5-8.5); NEUTROPHILS % 52.3 % (36.0-66.0); PLATELET COUNT, AUTOMATED 336 10^3/uL (150-450); RED BLOOD COUNT 4.43 10^6/uL (4.00-5.40); WHITE BLOOD COUNT 6.8 10^3/uL (4.0-10.0)
[2022-11-16 18:11] LABS: HEMOGLOBIN A1c 6.2 % (4.0-6.0)
[2022-11-16 18:16] LABS: ALBUMIN 4.3 G/DL (3.2-5.2); ALKALINE PHOSPHATASE 80 U/L (46-116); ALT/SGPT 30 U/L (7.0-40); AST/SGOT 12 U/L (<34); BILIRUBIN,TOTAL 0.6 MG/DL (0.3-1.2); BLOOD UREA NITROGEN 6 MG/DL (9-23); CALCIUM LEVEL 9.4 MG/DL (8.5-10.1); CARBON DIOXIDE LEVEL 31 MMOL/L (20-31); CHLORIDE LEVEL 104 MMOL/L (98-107); CREATININE FOR GFR 0.64 MG/DL (0.55-1.30); GLOMERULAR FILTRATION RATE > 60.0 (>51); GLUCOSE, FASTING 103 MG/DL (60-100); POTASSIUM SERUM 4.1 MMOL/L (3.5-5.1); SODIUM LEVEL 142 MMOL/L (136-145)
== END ==
LOC: M SFHCCLAY 10:26
PROVIDERS: ATTEND Family Medicine
DX: Z01.818 Encounter for other preprocedural examination (principal); R30.0 Dysuria; E03.9 Hypothyroidism, unspecified; K21.9 Gastro-esophageal reflux disease without esophagitis; J45.41 Moderate persistent asthma with (acute) exacerbation; E55.9 Vitamin D deficiency, unspecified; R73.01 Impaired fasting glucose

== ENCOUNTER 2022-12-30 12:05 | Emergency (ER) | payer MEDICARE, OTHER ==
[~2022-12-30] VITALS: Ht 162.6 cm; Wt 58.5 kg
[2022-12-30 12:53] LABS: BASO # 0.1 10^3/uL (0.0-0.2); BASO % 0.7 % (0.0-1.0); EOS % 0.3 % (0.0-3.0); HEMATOCRIT 40.6 % (36.0-47.0); HEMOGLOBIN 13.3 g/dl (12.0-15.5); LYMPH # 1.1 10^3/uL (1.5-5.0); LYMPH % 11.1 % (24.0-44.0); MEAN CORPUSCULAR HEMOGLOBIN 29.6 pg (27.0-33.0); MEAN CORPUSCULAR HGB CONC 32.8 g/dl (32.0-36.5); MEAN CORPUSCULAR VOLUME 90.4 fl (80.0-96.0); MONO # 0.3 10^3/uL (0.0-0.8); MONO % 2.9 % (2.0-8.0); NEUTROPHILS # 8.6 10^3/uL (1.5-8.5); NEUTROPHILS % 84.6 % (36.0-66.0); PLATELET COUNT, AUTOMATED 338 10^3/uL (150-450); RED BLOOD COUNT 4.49 10^6/uL (4.00-5.40); WHITE BLOOD COUNT 10.2 10^3/uL (4.0-10.0)
[2022-12-30 13:06] LABS: INR 0.95; PROTHROMBIN TIME 12.4 SECONDS (12.5-14.5)
[2022-12-30 13:07] LABS: PARTIAL THROMBOPLASTIN TIME 30.6 SECONDS (24.8-34.2)
[2022-12-30 13:20] LABS: CK-MB VALUE MASS < 1.0 NG/ML (<3.6)
[2022-12-30 13:22] LABS: BLOOD UREA NITROGEN 7 MG/DL (9-23); CALCIUM LEVEL 9.9 MG/DL (8.5-10.1); CARBON DIOXIDE LEVEL 28 MMOL/L (20-31); CHLORIDE LEVEL 109 MMOL/L (98-107); CREATININE FOR GFR 0.57 MG/DL (0.55-1.30); GLOMERULAR FILTRATION RATE > 60.0 (>51); GLUCOSE, FASTING 156 MG/DL (60-100); POTASSIUM SERUM 3.9 MMOL/L (3.5-5.1); SODIUM LEVEL 144 MMOL/L (136-145)
[2022-12-30 13:35] LABS: LIPASE 33 U/L (12-53)
[2022-12-30 13:37] LABS: ALBUMIN 4.5 G/DL (3.2-5.2); ALKALINE PHOSPHATASE 74 U/L (46-116); ALT/SGPT 39 U/L (7.0-40); AST/SGOT 19 U/L (<34); BILIRUBIN,DIRECT 0.2 MG/DL (<0.4); BILIRUBIN,TOTAL 0.6 MG/DL (0.3-1.2); CPK CREATINE PHOSPHOKINASE 108 U/L (34-145); MB/CK RELATIVE INDEX 0.92 (< OR =4); TOTAL PROTEIN 7.2 G/DL (5.7-8.2)
[2022-12-30] MEDS: GASTROGRAFIN SOLUTION 30ML PO SCH ×2 (13:40→14:15)
[2022-12-30] MEDS ORDERED: ONDANSETRON 4MG 2ML VIAL IV ONE (13:50)
[2022-12-30] MEDS ORDERED: MORPHINE 4 MG/ML 1ML VIAL IV ONE (13:50)
[2022-12-30] MEDS ORDERED: ISOVUE-370 76% 100ML VIAL As Ordered ONE (13:55)
[2022-12-30 14:13] LABS: RSV AMPLIFICATION NEGATIVE (NEGATIVE)
[2022-12-30 14:24] LABS: CK-MB VALUE MASS < 1.0 NG/ML (<3.6)
[2022-12-30 14:25] LABS: CPK CREATINE PHOSPHOKINASE 112 U/L (34-145); MB/CK RELATIVE INDEX 0.89 (< OR =4)
[2022-12-30] MEDS ORDERED: KETOROLAC 30 MG/ML 1ML VIAL IV ONE (14:35)
[2022-12-30] MEDS ORDERED: SUCRALFATE SUSP 1GM/10ML UD PO ONE (14:35)
[2022-12-30] MEDS ORDERED: NS 1,000 ML IV ONE (15:30)
[2022-12-30 15:43] VITALS: BP 149/67; TEMP 98.2; O2SAT 100
== END 2022-12-30 16:34 | disposition home or self-care (01) ==
LOC: M ED 13:48
DX: R10.13 Epigastric pain (principal); R07.89 Other chest pain; E11.9 Type 2 diabetes mellitus without complications; I10 Essential (primary) hypertension; J45.909 Unspecified asthma, uncomplicated; Z79.899 Other long term (current) drug therapy; Z88.0 Allergy status to penicillin; Z88.2 Allergy status to sulfonamides
CPT/HCPCS: 71045; 71275; 74177; 80048; 80076; 82550; 82553; 83690; 84484; 85025; 85610; 85730; 86850; 86900; 86901; 87631; 93005; 94760; 96374; 99284; J1885; Q9963; Q9967

== ENCOUNTER → 2023-01-03 | Outpatient (CLI) | payer MEDICARE, OTHER ==
[~2023-01-03] MED LIST changes: +E-Z-GAS II EFFERVESCENT PACKET (SODIUM BICARB./CITRIC ACID/SIMETHICONE) As Ordered ONE; +E-Z-HD 98% w/w 340GM SUSP BTL As Ordered ONE; +E-Z-PAQUE 96% w/w SUSP 176GM BTL As Ordered ONE
== END ==
LOC: M RAD 11:00
PROVIDERS: ATTEND Physician Assistant Surgical
DX: K21.9 Gastro-esophageal reflux disease without esophagitis (principal)

== ENCOUNTER → 2023-02-22 | Outpatient (REF) | payer MEDICARE, OTHER ==
[~2023-02-22] MED LIST changes: -E-Z-GAS II EFFERVESCENT PACKET (SODIUM BICARB./CITRIC ACID/SIMETHICONE) As Ordered ONE; -E-Z-HD 98% w/w 340GM SUSP BTL As Ordered ONE; -E-Z-PAQUE 96% w/w SUSP 176GM BTL As Ordered ONE
== END ==
LOC: M PLALAB 12:25
PROVIDERS: ATTEND Advanced Practice Midwife
DX: R39.15 Urgency of urination (principal)

== ENCOUNTER → 2023-04-06 | Outpatient (CLI) | payer MEDICARE, OTHER | LOC: M WHC 11:51 | PROVIDERS: ATTEND Advanced Practice Midwife | DX: Z53.9 Procedure and treatment not carried out, unspecified reason (principal) ==

== ENCOUNTER → 2023-04-06 | Outpatient (CLI) | payer MEDICARE, OTHER | LOC: M RAD 12:36 | PROVIDERS: ATTEND Advanced Practice Midwife | DX: K40.90 Unilateral inguinal hernia, without obstruction or gangrene, not specified as recurrent (principal); R19.03 Right lower quadrant abdominal swelling, mass and lump; Z90.711 Acquired absence of uterus with remaining cervical stump ==

== ENCOUNTER → 2023-04-24 | Outpatient (REF) | payer MEDICARE, OTHER ==
[2023-04-24 13:50] LABS: HEMOGLOBIN A1c 5.6 % (4.0-6.0)
== END ==
LOC: M LABWUC 12:07
PROVIDERS: ATTEND Surgery
DX: Z01.810 Encounter for preprocedural cardiovascular examination (principal); K40.90 Unilateral inguinal hernia, without obstruction or gangrene, not specified as recurrent; E11.9 Type 2 diabetes mellitus without complications

== ENCOUNTER → 2023-06-07 | Outpatient (CLI) | payer MEDICARE, OTHER ==
[~2023-06-07] MED LIST changes: +MULT18TA PO; -ONE-1TAB PO
== END ==
LOC: M CLY 09:25
PROVIDERS: ATTEND Physician Assistant Medical
DX: K22.2 Esophageal obstruction (principal); R05.3 Chronic cough

== ENCOUNTER → 2023-06-07 | Outpatient (REF) | payer MEDICARE, OTHER ==
[2023-06-07 12:20] LABS: MALB URINE SIEMENS < 3.0 MG/L; MAU/CREAT RATIO 2.9 MCG/MG (0.0-30.0)
[2023-06-07 12:25] LABS: HEMOGLOBIN A1c 5.6 % (4.0-6.0)
[2023-06-07 12:33] LABS: ALBUMIN 4.3 G/DL (3.2-5.2); ALKALINE PHOSPHATASE 79 U/L (46-116); ALT/SGPT 34 U/L (7.0-40); AST/SGOT 17 U/L (<34); BILIRUBIN,TOTAL 0.6 MG/DL (0.3-1.2); BLOOD UREA NITROGEN 9 MG/DL (9-23); CALCIUM LEVEL 9.3 MG/DL (8.5-10.1); CARBON DIOXIDE LEVEL 29 MMOL/L (20-31); CHLORIDE LEVEL 107 MMOL/L (98-107); CHOLESTEROL LEVEL 163 MG/DL (<200); CHOLESTEROL RISK RATIO 2.92 (<5); CREATININE FOR GFR 0.54 MG/DL (0.55-1.30); GLOMERULAR FILTRATION RATE > 60.0 (>51); GLUCOSE, FASTING 94 MG/DL (60-100); HDL CHOLESTEROL 55.8 MG/DL (>40); LDL CHOLESTEROL 89.4 MG/DL (<100); NON-HDL-C 107.2 MG/DL; POTASSIUM SERUM 4.4 MMOL/L (3.5-5.1); SODIUM LEVEL 142 MMOL/L (136-145); TOTAL PROTEIN 6.6 G/DL (5.7-8.2); TRIGLYCERIDES LEVEL 89 MG/DL (<150)
[2023-06-07 12:35] LABS: THYROID STIMULATING HORMONE 0.707 uIU/ML (0.55-4.78)
[2023-06-07 12:36] LABS: FREE T4 1.41 NG/DL (0.89-1.76)
== END ==
LOC: M SFHCCLAY 09:17
PROVIDERS: ATTEND Physician Assistant Medical
DX: I10 Essential (primary) hypertension (principal); E03.9 Hypothyroidism, unspecified; E11.9 Type 2 diabetes mellitus without complications

== ENCOUNTER → 2023-07-09 | Outpatient (CLI) | payer MEDICARE, OTHER | LOC: M RAD 08:09 | PROVIDERS: ATTEND Physician Assistant Surgical | DX: K31.89 Other diseases of stomach and duodenum (principal) | CPT/HCPCS: 78264; A9541 ==

== ENCOUNTER → 2023-07-12 | Outpatient (REF) | payer MEDICARE, OTHER | LOC: M SFHCCAPE 16:11 | PROVIDERS: ATTEND Physician Assistant Medical | DX: J02.9 Acute pharyngitis, unspecified (principal) ==

== ENCOUNTER 2023-08-10 10:20 | Day surgery (SDC) | payer MEDICARE, OTHER ==
[~2023-08-10] VITALS: Ht 162.6 cm; Wt 62.1 kg
[~2023-08-10 10:20] MED LIST changes: +AMLO2.5T3 PO; +ARNU1INH3 INH; +CVS27TAB2 PO; +NS 1,000 ML IV ONE; +PRAV10TA3 PO; +SALA1TAB PO; +VITA500C24 PO
[2023-08-10] MEDS ORDERED: LIDOCAINE 2% 100MG/5ML SDV (FOR ANES.) As Ordered ONE (12:35)
[2023-08-10] MEDS ORDERED: fentaNYL 100 MCG/2 ML INJECTION As Ordered ONE (12:35)
[2023-08-10] MEDS ORDERED: propofoL 500 MG/50 ML VIAL As Ordered ONE (12:35)
[2023-08-10 13:50] VITALS: BP 142/67; TEMP 98.2; O2SAT 100
== END 2023-08-10 13:45 | disposition home or self-care (01) ==
LOC: M OPP 10:20
PROVIDERS: ATTEND Internal Medicine Gastroenterology
DX: Z09 Encounter for follow-up examination after completed treatment for conditions other than malignant neoplasm (principal); K29.70 Gastritis, unspecified, without bleeding; K31.7 Polyp of stomach and duodenum; R10.13 Epigastric pain; K76.0 Fatty (change of) liver, not elsewhere classified; Z79.890 Hormone replacement therapy; I10 Essential (primary) hypertension; E11.9 Type 2 diabetes mellitus without complications; E03.9 Hypothyroidism, unspecified; M35.00 Sjogren syndrome, unspecified; J45.909 Unspecified asthma, uncomplicated; Z79.84 Long term (current) use of oral hypoglycemic drugs; Z79.899 Other long term (current) drug therapy; Z79.51 Long term (current) use of inhaled steroids; Z90.710 Acquired absence of both cervix and uterus; Z88.0 Allergy status to penicillin; Z88.2 Allergy status to sulfonamides
CPT/HCPCS: 43239; 88305; J3010

== ENCOUNTER → 2023-12-04 | Outpatient (REF) | payer MEDICARE, OTHER ==
[~2023-12-04] MED LIST changes: -NS 1,000 ML IV ONE
== END ==
LOC: M LAB REF 09:13
PROVIDERS: ATTEND Internal Medicine Gastroenterology
DX: R19.7 Diarrhea, unspecified (principal)

== ENCOUNTER → 2024-04-16 | Outpatient (REF) | payer MEDICARE, OTHER ==
[~2024-04-16] MED LIST changes: +LEVA15HF2 INH; -LEVAINH INH; +PILO4SOL6 OU
[2024-04-16 12:59] LABS: APPEARANCE, URINE CLEAR (CLEAR); BACTERIA, URINE AUTO NEGATIVE (NEGATIVE); BILIRUBIN, URINE AUTO NEGATIVE (NEGATIVE); BLOOD, URINE BLOOD NEGATIVE (NEGATIVE); COLOR, URINE YELLOW (YELLOW); GLUCOSE, URINE (UA) AUTO NEGATIVE (NEGATIVE); KETONE, URINE AUTO NEGATIVE (NEGATIVE); LEUKOCYTE ESTERASE, URINE AUTO NEGATIVE (NEGATIVE); MUCUS, URINE SMALL (NEGATIVE); NITRITE, URINE AUTO NEGATIVE (NEGATIVE); PROTEIN, URINE AUTO NEGATIVE (NEGATIVE); RBC, URINE AUTO 2 /HPF (0-3); SPECIFIC GRAVITY URINE AUTO 1.024 (1.002-1.035); SQUAMOUS EPITHELIAL CELL UR AU 1 /HPF (0-6); UROBILINOGEN, URINE AUTO 0.2 mg/dL (0.0-2.0); WBC, URINE AUTO 0 /HPF (0-3)
== END ==
LOC: M SFHCWAGY 12:29
PROVIDERS: ATTEND Advanced Practice Midwife
DX: N39.41 Urge incontinence (principal); R35.0 Frequency of micturition

== ENCOUNTER 2024-04-21 11:53 | Day surgery (SDC) | payer MEDICARE, OTHER ==
[~2024-04-21] VITALS: Ht 162.6 cm; Wt 59.0 kg
[2024-04-21] MEDS ORDERED: propofoL 200 MG/20 ML VIAL As Ordered ONE (13:00)
[2024-04-21] MEDS ORDERED: LIDOCAINE 2% 100MG/5ML SDV (FOR ANES.) As Ordered ONE (13:00)
[2024-04-21 14:33] VITALS: TEMP 97.5
[2024-04-21 14:53] VITALS: BP 128/58; O2SAT 99
== END 2024-04-21 15:27 | disposition home or self-care (01) ==
LOC: M OPP 11:53
PROVIDERS: ATTEND Internal Medicine Gastroenterology
DX: K31.84 Gastroparesis (principal); R11.0 Nausea; R10.13 Epigastric pain; Z98.890 Other specified postprocedural states

== ENCOUNTER → 2024-05-26 | Outpatient (CLI) | payer MEDICARE, OTHER | LOC: M WHC 07:36 | PROVIDERS: ATTEND Advanced Practice Midwife | DX: R10.2 Pelvic and perineal pain (principal); N94.10 Unspecified dyspareunia; R14.0 Abdominal distension (gaseous) ==

== ENCOUNTER → 2024-06-17 | Outpatient (CLI) | payer MEDICARE, OTHER | LOC: M WHC 08:12 | PROVIDERS: ATTEND Physician Assistant Medical | DX: Z12.31 Encounter for screening mammogram for malignant neoplasm of breast (principal); Z78.0 Asymptomatic menopausal state; M85.89 Other specified disorders of bone density and structure, multiple sites; R92.333 Mammographic heterogeneous density, bilateral breasts ==

== ENCOUNTER → 2025-02-26 | Outpatient (REF) | payer MEDICARE, OTHER ==
[~2025-02-26] MED LIST changes: +PRAV10TA PO; -PRAV10TA3 PO; -PRAV10TA4 PO; +PRAV10TA43 PO
[2025-02-26 18:03] LABS: APPEARANCE, URINE CLEAR (CLEAR); BACTERIA, URINE AUTO NEGATIVE (NEGATIVE); BILIRUBIN, URINE AUTO NEGATIVE (NEGATIVE); BLOOD, URINE BLOOD NEGATIVE (NEGATIVE); GLUCOSE, URINE (UA) AUTO NEGATIVE (NEGATIVE); KETONE, URINE AUTO NEGATIVE (NEGATIVE); LEUKOCYTE ESTERASE, URINE AUTO NEGATIVE (NEGATIVE); NITRITE, URINE AUTO NEGATIVE (NEGATIVE); PROTEIN, URINE AUTO NEGATIVE (NEGATIVE); RBC, URINE AUTO 1 /HPF (0-3); SPECIFIC GRAVITY URINE AUTO 1.014 (1.002-1.035); SQUAMOUS EPITHELIAL CELL UR AU 1 /HPF (0-6); UROBILINOGEN, URINE AUTO 0.2 mg/dL (0.0-2.0); WBC, URINE AUTO 0 /HPF (0-3)
== END ==
LOC: M SFHCWAGY 16:59
PROVIDERS: ATTEND Advanced Practice Midwife
DX: R35.0 Frequency of micturition (principal)

== ENCOUNTER → 2025-03-18 | Outpatient (REF) | payer MEDICARE, OTHER | LOC: M SFHCWAGY 12:37 | PROVIDERS: ATTEND Advanced Practice Midwife | DX: R30.0 Dysuria (principal) ==